=== PATIENT | male | born 1945 | race Caucasian/White ===

== ENCOUNTER 2020-05-06 13:54 | Inpatient (IN) | payer MEDICARE, SELFPAY ==
[2020-05-06] VITALS (9 sets, daily range): BP systolic 103–124; BP diastolic 49–94; PULSE 63–105; RESP 14–29; TEMP 33.7–35.4; O2SAT 92–97; BMI 40.4
--- NOTE | ~2020-05-06 | XR_ITS ---
EXAMINATION: XR CHEST CLINICAL INFORMATION: Status post right IJ placement. COMPARISON: Chest 05/11/2020 TECHNIQUE: Frontal view of the chest was obtained. FINDINGS: The lungs are well-expanded with increased pulmonary vascularity but no congestion seen. Heart size is enlarged. There is patchy opacity left lung base question atelectasis or infiltrate. Is a dense band like atelectasis right midlung Tip of new central line is in proximal to mid SVC. Endotracheal tube is 7.6 cm above the emilie. Tip of enteric tube is below the diaphragm in stomach. There is mild spondylosis dorsal spine. XR/XR chest 1V IMPRESSION: New right jugular central line tip is in proximal to mid SVC. Rest of support lines and catheters are stable. There is prominent pulmonary vascularity Bandlike atelectasis right upper midlung. Left lower lobe infiltrate/atelectasis suspected.
--- NOTE | ~2020-05-06 | XR_ITS ---
EXAMINATION: XR CHEST CLINICAL INFORMATION: ET tube placement COMPARISON: Chest x-ray 05/12/2020 TECHNIQUE: Frontal portable view of the chest was obtained. 9:32 PM FINDINGS: Tubes and lines: 1. Endotracheal tube 5 cm above emilie. 2. Right IJ catheter tip in superior vena cava about 7 cm proximal from the cavoatrial junction. 3. Gastric tube passes below diaphragm into stomach. Catheter tip is below the lower margin of the film. No acute abnormality. No pulmonary vascular congestion. Lungs are normally aerated. There is no pleural effusion or pneumothorax. XR/XR chest 1V IMPRESSION: 1. Endotracheal tube 5 cm above emilie. 2. Right IJ catheter tip in superior vena cava about 7 cm proximal from the cavoatrial junction. 3. Gastric tube passes below diaphragm into stomach. Catheter tip is below the lower margin of the film. 4. Normal aeration of lungs.
--- NOTE | ~2020-05-06 | XR_ITS ---
EXAMINATION: XR CHEST CLINICAL INFORMATION: Shortness of breath COMPARISON: 05/10/2020 TECHNIQUE: Frontal view of the chest was obtained. FINDINGS: Lung volumes are symmetric. Right basilar opacity appears increased from prior. Increasing retrocardiac opacity also suspected with silhouetting of the left hemidiaphragm. No evidence of pneumothorax. Small pleural effusions are suspected. Cardiac size is within normal limits. Calcification is present at the aortic arch. No acute osseous findings are seen. XR/XR chest 1V IMPRESSION: Increasing bibasilar opacities which may reflect atelectasis or consolidation, in association with small pleural effusions.
--- NOTE | ~2020-05-06 | CT_ITS ---
EXAMINATION: CT HEAD WITHOUT CONTRAST CLINICAL INFORMATION: Acute mental status change COMPARISON: None TECHNIQUE: Contiguous axial imaging was performed from the skull base to vertex without intravenous administration of contrast. This CT examination was performed using dose optimization techniques as appropriate, variously including the following: *Automated exposure control *Adjustment of mA and/or kV according to patient size (this includes techniques or standardized protocols for targeted exams where dose is matched to indication/reason for exam; i.e. extremities or head) *Use of iterative reconstruction technique DLP: 788 mGy-cm FINDINGS: There is no evidence of acute intracranial hemorrhage or territorial infarction. No abnormal mass effect or midline shift is seen. Dur[place] to white matter differentiation is well preserved. No extra-axial fluid collections are identified. The ventricles are normal in size. There is no abnormal attenuation within the brain parenchyma. The osseous structures and soft tissues are normal. The mastoid air cells and visualized portions of the paranasal sinuses are well aerated. CT/CT head/brain wo con IMPRESSION: No acute intracranial pathology.
--- NOTE | ~2020-05-06 | MR_ITS ---
EXAMINATION: MR BRAIN WITHOUT AND WITH CONTRAST CLINICAL INFORMATION: Delirium and akinesis COMPARISON: MRI brain 05/21/2020 TECHNIQUE: Multiplanar, multisequence MRI of the brain was obtained before and after the intravenous administration of 5 mL Gadavist. FINDINGS: Normal No focal reduced diffusion is seen to suggest acute or subacute cerebral ischemia. Previously seen nonspecific T2 signal changes in the internal capsule bilaterally including the putamen and splenium of the corpus callosum are less evident. Few nonspecific white matter changes as seen in the mid jaron region. There is no edema, mass effect, acute intra-axial external bleed. Postcontrast there is no abnormal enhancement seen within the cerebral or cerebellar hemisphere. No abnormal enhancement seen upon on the midbrain region. Normal flow at signal seen in the major cerebral vasculature. Mild mucoperiosteal thickening of right maxillary sinus is noted. MR/MR head/brain wo/w con IMPRESSION: Minimal nonspecific T2 signal changes on FLAIR in the mid jaron region but no edema, mass effect or enhancement seen. No acute infarct, bleed or enhancing supratentorial lesion. There is normal flow-void signal indication of intracranial circulation. Results were discussed by phone with on Dr. Lance Conklin in ICU at 11:00 AM
--- NOTE | ~2020-05-06 | FL_ITS ---
EXAMINATION: XR LUMBAR PUNCTURE CLINICAL INFORMATION: Elevated CSF protein, persistent encephalopathy. COMPARISON: None TECHNIQUE: Following explaining procedure, benefits and risks of lumbar tap under fluoroscopy to the patient's family, written consent was obtained. Patient was placed prone on fluoroscopy table and low back area was cleaned and draped in usual sterile manner. 1% lidocaine was injected overlying the L5-S1 disc level. A 20-gauge, 6-inch long needle was inserted intrathecally at the L5-S1 disc level with a left parahilar approach under fluoroscopy. There is very little CSF flow seen; however, 1 to 2 mL of hemorrhagic CSF fluid with minimal hemorrhage was seen. The needle was maneuvered in different position at the same level however, was unsuccessful. The stylet was reintroduced and needle withdrawn. Complete hemostasis achieved at puncture site. Patient tolerated procedure extremely well. FINDINGS: Fluoroscopy-guided lumbar puncture was performed and only 2 mL of CSF fluid could be obtained at the L5-S1 disc level. On the visualized images, tip of needle is in the center of the spinal canal at the L5-S1 disc. Visualized L4, L5 and sacrum is unremarkable. FLUOROSCOPY TIME: 1.5 minutes DOSE AREA PRODUCT: 15.058 uGy-m2 (microgray-meter squared) FL/FL guided lumbar puncture LP IMPRESSION: Partially successful fluoroscopy-guided L5-S1 lumbar puncture performed.
--- NOTE | ~2020-05-06 | XR_ITS ---
EXAMINATION: XR CHEST CLINICAL INFORMATION: Respiratory distress COMPARISON: Chest radiographs 05/06/2020 x2 exams, 03/22/2011 TECHNIQUE: Portable upright AP x 2 views of the chest was obtained. FINDINGS: There are low lung volumes. There is even distribution pulmonary vascularity but no engorgement of the vascular pedicle or Fred B lines. There is likely subsegmental atelectasis right base and adjacent to right minor fissure. There is no lobar or segmental airspace consolidation or suspicious groundglass opacity. No pneumothorax or pneumomediastinum. The cardiac and hilar and mediastinal contours and bony structures are stable. XR/XR chest 1V IMPRESSION: Low lung volumes. Subsegmental atelectasis adjacent to minor fissure and right base.
--- NOTE | ~2020-05-06 | MR_ITS ---
MRI OF THE BRAIN WITHOUT IV CONTRAST INDICATION: Persistent encephalopathy. COMPARISON: Head CT 05/06/2020. TECHNIQUE: Multiplanar multisequence MR imaging of the brain was obtained without IV contrast. FINDINGS: There is no hydrocephalus, extra-axial surface collection, or herniation. There are nonspecific T2 signal changes involving the internal capsules bilaterally, surrounding the putamen bilaterally, involving the splenium of the corpus callosum, and extending into the arceo radiata bilaterally. Consider postcontrast imaging for further assessment in light of the history of encephalopathy. There is lack of FLAIR CSF suppression within multiple cerebral sulci likely corresponding to vessels which could be indicative of slow arterial flow for which a CTA of the head would be helpful in further assessment. There is no acute infarct on diffusion-weighted imaging. There is no intracranial hemorrhage on the gradient recalled echo acquisition. The midline structures are normal. The cerebellar tonsils are normally positioned. The cerebellum and brainstem are normal. The craniocervical junction is normal. Osseous marrow signal intensity is homogenous. The visualized soft tissues are unremarkable. There is soft tissue pannus adjacent to the dens that indents the ventral thecal sac at C1-C2. A partially imaged disc protrusion at C4-C5 results in potential significant mass effect on the cervical spinal cord and severe central canal stenosis that can be further assessed with a cervical spine MRI if there is cervical myelopathy clinically. There is mild mucosal thickening within the maxillary sinuses bilaterally and moderate mucosal thickening within the ethmoid air cells bilaterally. MR/MR head/brain wo con IMPRESSION: - There are nonspecific T2 signal changes involving the internal capsules bilaterally, surrounding the putamen bilaterally, involving the splenium of the corpus callosum, and extending into the arceo radiata bilaterally. Consider postcontrast imaging for further assessment in light of the history of encephalopathy. Differential considerations include toxic/metabolic, infectious, inflammatory, and a variety of alternative etiologies. - There is lack of FLAIR CSF suppression within multiple cerebral sulci likely corresponding to vessels which could be indicative of slow arterial flow for which a CTA of the head would be helpful in further assessment. - A partially imaged disc protrusion at C4-C5 results in potential significant mass effect on the cervical spinal cord and severe central canal stenosis that can be further assessed with a cervical spine MRI if there is cervical myelopathy clinically.
--- NOTE | ~2020-05-06 | XR_ITS ---
EXAMINATION: XR CHEST CLINICAL INFORMATION: Possible sepsis. COMPARISON: Chest radiographs dated 03/22/2011. TECHNIQUE: Frontal view of the chest was obtained. FINDINGS: Mild linear markings are seen at the right lung base. The left lung is clear. The heart and mediastinal structures are unremarkable. XR/XR chest 1V IMPRESSION: Mild linear markings at the right lung base have the appearance of atelectasis or scarring. No acute cardiopulmonary process.
--- NOTE | ~2020-05-06 | XR_ITS ---
EXAMINATION: XR CHEST CLINICAL INFORMATION: SON COMPARISON: 05/06/2020, earlier today at 2:30 PM and chest radiograph 03/22/2011 TECHNIQUE: Frontal view of the chest was obtained. FINDINGS: Heart size is normal. Some ill-defined patchy density is seen in the right lung as well as the left lung base. This appears slightly increased when compared to the prior study earlier today. Some of the changes at the lung bases are chronic as some mild reticular nodular changes were present on the 2012 study at the lung bases. Degenerative changes again seen in the shoulders. XR/XR chest 1V IMPRESSION: Some new ill-defined patchy densities in both lungs.
--- NOTE | ~2020-05-06 | XR_ITS ---
EXAMINATION: XR CHEST CLINICAL INFORMATION: Status post reintubation COMPARISON: 05/11/2020 TECHNIQUE: Frontal view of the chest was obtained. XR/XR chest 1V FINDINGS / IMPRESSION: Endotracheal tube terminates 5.3 cm above the emilie. Right internal jugular central venous catheter terminates within the mid SVC. Enteric tube courses below the diaphragm. Cardiomegaly. Pulmonary venous congestion. Bilateral patchy lower lung airspace opacities, more pronounced at left lung base.
--- NOTE | ~2020-05-06 | XR_ITS ---
EXAMINATION: XR CHEST CLINICAL INFORMATION: Intubated, low lung volumes. COMPARISON: None TECHNIQUE: Frontal view of the chest was obtained. FINDINGS: The lungs are well-expanded with prominent interstitial markings and left basilar opacification likely infiltrate or atelectasis. Heart size and the great vessels are of normal caliber. New tip of endotracheal tube is 5 cm above the emilie. New enteric tube tip is below diaphragm in the stomach. No gross bony abnormality is seen. XR/XR chest 1V IMPRESSION: Left basilar infiltrate/atelectasis. New enteric tube and new endotracheal tube are in satisfactory position.
--- NOTE | ~2020-05-06 | NM_ITS ---
EXAMINATION: NUCLEAR MEDICINE BRAIN FLOW CLINICAL INFORMATION: Evaluate for brain perfusion and exclude brain . COMPARISON: None TECHNIQUE: Following intravenous administration of 25 mCi of 99m Tc Neurolite, image 8 perfusion and 20 minute delayed images were obtained. Isotope was injected through the right central line. FINDINGS: There is normal flow seen in both carotid and vertebral arteries including intracranial flow noted. On delayed images there is diffuse activity seen throughout the cerebrum and cerebellum consistent with normal perfusion. There is an absent heart and no significant sign. NM/NM brain 4V w flow IMPRESSION: Normal perfusion and isotope activity seen on delayed scan within the entire cerebrum and cerebellum consistent with viable brain parenchyma Results were discussed with ICU Dr. Lucas by phone at 4:00 PM.
--- NOTE | ~2020-05-06 | MR_ITS ---
EXAMINATION: MR BRAIN WITH CONTRAST MR CERVICAL SPINE WITHOUT CONTRAST CLINICAL INFORMATION: Evaluate for stroke. Evaluate for cervical myelopathy. COMPARISON: Brain MRI without contrast 05/13/2020. TECHNIQUE: Multiplanar MR imaging of the cervical spinal was performed without contrast. Axial and coronal postcontrast T1 images of the brain were also obtained. A total of 10 mL Gadavist was utilized for this examination. FINDINGS: Brain: Dedicated postcontrast images of the brain reveal no abnormal mass or enhancement within the intracranial compartment. No intracranial mass effect or midline shift. Again there is moderate paranasal sinus disease primarily affecting the ethmoid air cells. Cervical spine: There is slight retrolisthesis of C5 on C6. Alignment is otherwise normal. Vertebral heights are preserved. There are mixed predominantly type II degenerative endplate changes at C4-C5 and C5-C6. There is loss of intervertebral disc height and T2 signal intensity at these 2 levels related to disc degeneration. There is disc desiccation at multiple additional levels without substantial loss of intervertebral disc height. The cervicomedullary junction is normal. The occipital condyles and lateral C1 masses are intact. 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 C1-C2 articular facets are unremarkable. At C2-C3 the annular contour is normal. No canal stenosis. No neuroforaminal encroachment. At C3-C4 there is a broad central protrusion superimposed upon a bulging disc. Mild canal stenosis. Uncovertebral joint spurring and facet degenerative change causes moderate left and mild right neuroforaminal encroachment. At C4-C5 there is a central protrusion superimposed upon a bulging disc causing severe canal stenosis an compression of the cervical spinal cord. There is a short segment of chronic myelomalacia involving the cervical cord at this level. Severe bilateral neuroforaminal encroachment. At C5-C6 there is a broad right central protrusion superimposed upon a bulging disc causing severe canal stenosis and compression of the cervical spinal cord. There is a short segment of chronic myelomalacia involving the cervical cord at this level. Severe bilateral neuroforaminal encroachment. At C6-C7 there is a small left central protrusion superimposed upon a bulging disc. Mild canal stenosis. Uncovertebral joint spurring and facet degenerative change causes mild bilateral neuroforaminal encroachment. At C7-T1 the annular contour is normal. Bilateral facet degenerative change. No canal stenosis. No neuroforaminal narrowing. Visualized soft tissues tissues of the neck are normal. MR/MR cervical spine wo con IMPRESSION: Brain: No abnormal intracranial mass or enhancement. Cervical spine: There is advanced multilevel degenerative spondylosis of the cervical spine. There is a severe canal stenosis with compression of the cervical spinal cord at C4-C5 and C5-C6 with short segments of chronic myelomalacia involving the cord at each of these 2 levels. There is also mild canal stenosis at C3-C4 and C6-C7. There is relatively advanced degenerative arthrosis of the atlantodental joint with thickening of the retrodental soft tissues causing AP narrowing of the canal at the level of C1. There is severe bilateral neuroforaminal encroachment at C4-C5 and C5-C6 related to uncovertebral joint spurring and facet degenerative change as described above. This critical result was discussed with Sammy Lopez at 2:37 PM on 05/15/2020 and it was ascertained that the content and urgency of the report was understood at the time of direct communication.
--- NOTE | 2020-05-06 14:12 | ECG_ITS ---
Test Reason : AMS Blood Pressure : / mmHG Vent. Rate : 135 BPM Atrial Rate : 144 BPM P-R Int : 000 ms QRS Dur : 074 ms QT Int : 220 ms P-R-T Axes : 000 060 083 degrees QTc Int : 330 ms Artifact in tracing Undetermined rhythm EKG not interpretable When compared with ECG of 11-MAR-2011 09:04, due to poor quality, cannot compare Referred By: Jennifer Patel Electronically Signed By:JAMES BORDEN
[2020-05-06] MEDS: 0.9 % Sodium Chloride 1,000 ML 999 ML IVCONT ×2 (14:28)
[2020-05-06] MEDS: Piperacillin Sodium/Tazobactam 3.375 GM in 0.9 % Sodium Chloride 50 ML IV ×2 (14:31→20:03)
[2020-05-06 14:33] LABS: Basophils Percent Auto 0.3 % (0-2); Eosinophils Absolute Auto 0.1 X10*3/uL (0.0-0.4); Hematocrit 37.6 % (42-52); Hemoglobin 11.6 g/dl (14.0-18.0); Imm Gran Abs Auto 0.03 X10*3/uL (0.00-0.03); Imm Gran Pct Auto 0.5 % (0.0-0.4); Lymphocytes Absolute Auto 0.3 X10*3/uL (1.2-4.9); Lymphocytes Percent Auto 4.1 % (20-40); MANUAL DIFF FLAG SCAN; Mean Corpuscular HGB Conc 30.9 g/dl (31.0-36.0); Mean Corpuscular Hemoglobin 28.8 pg (27.0-33.0); Mean Corpuscular Volume 93.3 fL (80-98); Mean Platelet Volume 12.9 fL (9.4-12.4); Monocytes Absolute Auto 0.5 X10*3/uL (0.1-1.2); Monocytes Percent Auto 7.3 % (2-11); NRBC Pct Auto 0.5 /100WBC (0.0-0.2); Neutrophils Absolute Auto 5.7 X10*3/uL (2.0-8.3); Neutrophils Percent Auto 85.8 % (45-73); Platelet Count 103 X10*3/uL (160-400); Red Blood Count 4.03 X10*6/uL (4.60-5.80); Red Cell Distribution Width 16.6 % (11.0-16.0); SCAN SMEAR FLAG 1; White Blood Count 6.6 X10*3/uL (4.8-10.8)
[2020-05-06 14:40] LABS: INTERNATIONAL NORM RATIO 1.1 (0.9-1.1); Prothrombin Time 12.9 SEC (10.8-13.0)
--- NOTE | 2020-05-06 14:43 | ED_ITS ---
HPI - General Adult General Chief complaint: Altered Mental Status Stated complaint: AMS,?SEPSIS,LATA CELLULITIS Time Seen by Provider: 05/06/20 13:55 Source: patient and EMS Mode of arrival: EMS Limitations: no limitations History of Present Illness HPI narrative: Patient is brought to the emergency room by EMS. According to EMS and the patient, he was sent to the emergency room by patient's 's request. Patient states that his believes that for the last 5-10 days, he has been slower to answer. Patient has no complaints. Related Data Allergies Allergy/AdvReac Type Severity Reaction Status Date / Time No Known Allergies Allergy Unknown NONE Unverified 11/17/19 14:44 Review of Systems Review of Systems: Constitutional : No Weight loss, No Fever, No Chills, No Night Sweats, No Fatigue, No Malaise ENT/Mouth : No Hearing loss, No Ear Pain, No Nasal Congestion, No Sinus Pain, No Hoarseness, No sore throat, No Rhinorrhea, No Swallowing Difficulty Eyes: No Eye Pain, No Swelling, No Redness, No Foreign Body, No Discharge, No Vision Changes Cardiovascular : No Chest Pain, No SOB, No Dyspnea on Exertion, No Orthopnea, No Edema, No Palpitations Respiratory : No Cough, No Sputum, No Wheezing, No Smoke Exposure, chronic dyspnea per patient at baseline Gastrointestinal : No Nausea, No Vomiting, No Diarrhea, No Constipation, No abdominal Pain, No Hematochezia, No Melena Genitourinary : no irregular bleeding, No Dysuria, No Urinary Frequency, No He maturia, No Urinary Incontinence, No Urgency, No Flank Pain, No Urinary Flow Changes, No Hesitancy Musculoskeletal : No joint pain, No Myalgias, No Joint Swelling Skin : Chronic lower extremity edema and venous insufficiency Neuro : No Weakness, No Numbness, No Paresthesias, No Loss of Consciousness, No Dizziness, No Headache Psych : No Anxiety/Panic, No Depression, No SI/HI/AH/VH, No Social Issues, Heme/Lymph: No Bruising, No Bleeding,No Lymphadenopathy Endocrine : No Polyuria, No Polydipsia, No Temperature Intolerance PMF Past Medical History Medical History CHF (congestive heart failure) Diabetes HTN (hypertension) Hypothyroidism Social History Social History Alcohol intake: unknown Smoking Status: Unknown if ever smoked Use of substances other than those prescribed or required for medical reasons: Unknown Advance Directives: No Advance Directives Information Provided: No Physical Exam Vital Signs: Vital Signs: Last Vital Signs Temp 92.6 F L 05/06/20 14:00 Pulse 63 05/06/20 14:48 Resp 17 05/06/20 14:48 BP 105/49 L 05/06/20 15:10 Pulse Ox 92 05/06/20 14:48 Body Mass Index 40.4 Appearance: Alert. Oriented X3. No acute distress. Slow to answer, but answers appropriately Eyes: Pupils equal, round and reactive to light. ENT: Pharynx normal. Neck: Normal inspection. Neck supple. No lymph nodes noted. No crepitus CVS: Normal heart rate and rhythm. Pulses normal. Normal S1 and S2 Respiratory: No respiratory distress. Bilateral crackles, no wheezing Abdomen: Soft and nontender. No rigidity. Diffuse distension Skin: Skin is cool to touch diffusely. Lower extremities bilaterally have chronic venous stasis, both legs are erythematous, there is an eschar above the right tibia Extremities: Chronic bilateral lower extremity edema, see above Neuro: Oriented X 3. No motor deficit. No sensory deficit. Moving all exte rmities. Course Course Course Narrative: Patient's initial temperature is 92.6 degrees. It is susp ected that patient may have sepsis, possible source are his lower extremities/cellulitis. At this time although labs and chest x-rays are pending. Patient feels well, remains in the [facility]. I discussed the patient with our hospitalist, patient is being admitted Patient's oxygen saturation dropped to 87% on room air, patient remains breathing comfortably, patient was placed on 2 L Medical Decision Making Lab Data Result diagrams: 05/06/20 14:24 05/06/20 14:24 Labs: Lab Results 05/06/20 05/06/20 05/06/20 Range/Units 14:24 14:24 14:24 WBC 6.6 (4.8-10.8) X10*3/uL RBC 4.03 L (4.60-5.80) X10*6/uL Hgb 11.6 L (14.0-18.0) g/dl Hct 37.6 L (42-52) % MCV 93.3 (80-98) fL MCH 28.8 (27.0-33.0) pg MCHC 30.9 L (31.0-36.0) g/dl RDW 16.6 H (11.0-16.0) % Plt Count 103 L (160-400) X10*3/uL MPV 12.9 H (9.4-12.4) fL Immature Gran % (Auto) 0.5 H (0.0-0.4) % Neut % (Auto) 85.8 H (45-73) % Lymph % (Auto) 4.1 L (20-40) % [place] % (Auto) 7.3 (2-11) % Eos % (Auto) 2.0 (0-4) % Baso % (Auto) 0.3 (0-2) % Lymph # (Auto) 0.3 L (1.2-4.9) X10*3/uL [place] # (Auto) 0.5 (0.1-1.2) X10*3/uL Eos # (Auto) 0.1 (0.0-0.4) X10*3/uL Baso # (Auto) 0.0 (0.0-0.2) X10*3/uL Abs Immat Gran (auto) 0.03 (0.00-0.03) X10*3/uL Absolute Neuts (auto) 5.7 (2.0-8.3) X10*3/uL Absolute Nucleated RBC 0.030 H (0.0-0.012) X10*3/uL Nucleated RBC % (auto) 0.5 H (0.0-0.2) /100WBC Smear Tech's Comments VERIFIED PT 12.9 (10.8-13.0) SEC INR 1.1 (0.9-1.1) Sodium 149 H (135-145) mmol/L Potassium 4.3 (3.3-5.1) mmol/L Chloride 112 H (96-108) mmol/L Carbon Dioxide 25 (22-29) mmol/L Anion Gap 16 (12-20) BUN 50 H (9-16) mg/dL Creatinine 2.20 H (0.5-1.4) mg/dL Estim Creat Clear Calc 33.2 Estimated GFR 29 Random Glucose 98 (60-115) mg/dL Lactic Acid (0.5-2.0) mmol/L Calcium 8.5 (8.4-10.2) mg/dL Total Bilirubin 0.3 (0.0-1.0) mg/dL Direct Bilirubin < 0.2 (0.0-0.5) mg/dL AST 39 H (5-37) U/L ALT 50 H (0-40) U/L Alkaline Phosphatase 90 (39-117) U/L B-Natriuretic Peptide (<100) pg/mL Total Protein 6.9 (6.5-8.0) g/dL Albumin 3.5 (3.5-5.0) g/dL TSH (0.32-4.0) uIU/mL 05/06/20 05/06/20 05/06/20 Range/Units 14:24 14:24 14:24 WBC (4.8-10.8) X10*3/uL RBC (4.60-5.80) X10*6/uL Hgb (14.0-18.0) g/dl Hct (42-52) % MCV (80-98) fL MCH (27.0-33.0) pg MCHC (31.0-36.0) g/dl RDW (11.0-16.0) % Plt Count (160-400) X10*3/uL MPV (9.4-12.4) fL Immature Gran % (Auto) (0.0-0.4) % Neut % (Auto) (45-73) % Lymph % (Auto) (20-40) % [place] % (Auto) (2-11) % Eos % (Auto) (0-4) % Baso % (Auto) (0-2) % Lymph # (Auto) (1.2-4.9) X10*3/uL [place] # (Auto) (0.1-1.2) X10*3/uL Eos # (Auto) (0.0-0.4) X10*3/uL Baso # (Auto) (0.0-0.2) X10*3/uL Abs Immat Gran (auto) (0.00-0.03) X10*3/uL Absolute Neuts (auto) (2.0-8.3) X10*3/uL Absolute Nucleated RBC (0.0-0.012) X10*3/uL Nucleated RBC % (auto) (0.0-0.2) /100WBC Smear Tech's Comments PT (10.8-13.0) SEC INR (0.9-1.1) Sodium (135-145) mmol/L Potassium (3.3-5.1) mmol/L Chloride (96-108) mmol/L Carbon Dioxide (22-29) mmol/L Anion Gap (12-20) BUN (9-16) mg/dL Creatinine (0.5-1.4) mg/dL Estim Creat Clear Calc Estimated GFR Random Glucose (60-115) mg/dL Lactic Acid 0.5 (0.5-2.0) mmol/L Calcium (8.4-10.2) mg/dL Total Bilirubin (0.0-1.0) mg/dL Direct Bilirubin (0.0-0.5) mg/dL AST (5-37) U/L ALT (0-40) U/L Alkaline Phosphatase (39-117) U/L B-Natriuretic Peptide 50 (<100) pg/mL Total Protein (6.5-8.0) g/dL Albumin (3.5-5.0) g/dL TSH 4.75 H (0.32-4.0) uIU/mL Imaging Data Chest x-ray: Radiologist's impression: FINDINGS: Mild linear markings are seen at the right lung base. The left lung is clear. The heart and mediastinal structures are unremarkable. XR/XR chest 1V IMPRESSION: Mild linear markings at the right lung base have the appearance of atelectasis or scarring. No acute cardiopulmonary process. ECG Data Attestation: I personally reviewed and interpreted this ECG as follows: Discharge Plan Discharge Clinical Impression: Cellulitis Qualifiers: Site of cellulitis: extremity Site of cellulitis of extremity: lower extremity Laterality: unspecified laterality Qualified Code(s): L03.119 - Cellulitis of unspecified part of limb Patient Disposition: Admitted As Inpatient
[2020-05-06 14:49] LABS: Lactic Acid 0.5 mmol/L (0.5-2.0)
[2020-05-06 14:54] LABS: SLIDE REVIEW VERIFIED
[2020-05-06 14:59] LABS: B Type Natriuretic Peptide 50 pg/mL (<100)
[2020-05-06 15:04] LABS: Alanine Aminotransferase 50 U/L (0-40); Albumin Level 3.5 g/dL (3.5-5.0); Alkaline Phosphatase 90 U/L (39-117); Anion Gap 16 (12-20); Aspartate Amino Transferase 39 U/L (5-37); Bilirubin Direct < 0.2 mg/dL (0.0-0.5); Bilirubin Total 0.3 mg/dL (0.0-1.0); Blood Urea Nitrogen 50 mg/dL (9-16); Calcium 8.5 mg/dL (8.4-10.2); Carbon Dioxide 25 mmol/L (22-29); Chloride 112 mmol/L (96-108); Creatinine Clr Calc Pharmacy 33.2; Estimated Glomerular Filt Rate 29; Glucose Random 98 mg/dL (60-115); Potassium 4.3 mmol/L (3.3-5.1); Sodium 149 mmol/L (135-145); Total Protein 6.9 g/dL (6.5-8.0)
[2020-05-06 15:14] LABS: TSH reflex Free T4 4.75 uIU/mL (0.32-4.0)
--- NOTE | 2020-05-06 15:36 | PC.NURSE ---
pt placed on nc 2l for o2 sat of 88% on room air
[2020-05-06 15:50] LABS: Free T4 (Free Thyroxine) 1.19 ng/dL (0.71-1.85)
--- NOTE | 2020-05-06 16:00 | PC.NURSE ---
plan for temp eliud galvez
[2020-05-06 16:24] LABS: Estimated Average Glucose 137 mg/dL; Hemoglobin A1c % 6.4 %
[2020-05-06 16:31] LABS: Glucose Urine UA NEG (NEG); Leukocyte Esterase Urine NEG (NEG); Nitrite Urine NEG (NEG); Urine Blood NEG (NEG); Urine Ketones NEG (NEG); Urine Protein NEG (NEG-TRACE)
[2020-05-06 16:34] LABS: Appearance Urine CLEAR; Color Urine YELLOW
--- NOTE | 2020-05-06 16:34 | P.ACPN_ITS ---
Advanced Care Planning Note Advanced Care Planning Note Discussed with: family member(s) Time spent (in minutes): 20 Narrative: 74-year-old man presenting to the ER with altered mental status and hypothermia. Discussion was had with patient's Cary Lozano ). She is concerned with his mental state as prior to a week ago patient had been doing his own care including bathing himself. She reports that their private people and they do not 10 to do much reach other in that way so when she did help him this Thursday and saw his legs she noticed that they were very red with skin peeling and she was very surprised. She reports that he does have a history of cellulitis in the past and has been seen by a Wound Clinic previously over the years. She reported that he over the last week has seemed to be declining, having more difficulties with walking and was even unable to climb the stairs in their home and at this point he is now sleeping in a chair in their downstairs living area. She reported that he had become delirious and was even seeing things including people and animals. She is concerned about his home safety and would like to have him go to short-term rehab. She also reported that she had thought that they signed DNR papers but she wanted him to be a full code I explained to her what DNR meant versus Full code and she stated understanding and wanted everything to be done for him if thing that happened to him. She will be followed up with by the primary provider and case management.
[2020-05-06 16:36] LABS: COVID-19 Test Negative (Negative); IDNOW Serial# 9DD0AD1C
--- NOTE | 2020-05-06 17:01 | P.HPHOSP_ITS ---
History of Present Illness Date of Service: 05/06/20 Chief Complaint: Confusion, leg redness 74 year old man with history of CHF, Hypothyroidism presents with confusion. According apparently he has been doing his own wound care to both of his legs which he has been over the last several years. However he has been having trouble even walking, walking up stairs and he has been quite weak. To bathe him and do wound care on his legs and she noted them to be very red and raw. She reports prior to week ago he had unable to do most of his own self-care without much difficulty. He has had cellulitis in the past and has been seen by wound care clinic. His legs were red bilaterally with multiple dry skin areas. Groin area very excoriated. The patient is alert however confused therefore unable to get much information from him his reported that he has not had a poor appetite, nausea, vomiting, diarrhea. Her chest x-ray was negative for consolidation or effusion. He was noted to be hypothermic initially. Zhang hugger placed. He was placed on 2 liters of oxygen after o2 sat went down to 89% but came right back up. He will be admitted for further management and treatment of cellulitis and hypothermia. Review of Systems Review of Systems: Denies any recent fever chills or decrease in appetite respiratory denies any shortness of breath coverage production cardiovascular is adjustment of any PND or edema gastrointestinal denies any dysphagia abdominal pain nausea vomiting or diarrhea genitourinary denies any dysuria frequency or hematuria musculoskeletal denies any joint pain or swelling neuropsych denies any weakness or seizures all other systems reviewed are negative [facility] Medical History CHF (congestive heart failure) Diabetes HTN (hypertension) Hypothyroidism Social History Alcohol intake: unknown Smoking Status: Unknown if ever smoked Use of substances other than those prescribed or required for medical reasons: Unknown Advance Directives: No Advance Directives Information Provided: No Meds Allergies Allergy/AdvReac Type Severity Reaction Status Date / Time No Known Allergies Allergy Unknown NONE Unverified 11/17/19 14:44 Active Medications: Current Medications Generic Name Dose Route Start Last Admin Trade Name Freq PRN Reason Stop Dose Admin Acetaminophen 650 mg 05/06/20 16:58 Acetaminophen 325 Mg Tablet PO Q6H PRN Pain, Mild (Pain Scale 1-3) Levothyroxine Sodium 125 mcg 05/07/20 09:00 Levothyroxine Sodium 125 Mcg Tablet PO DAILY [facility] Metoprolol Tartrate 25 mg 05/07/20 09:00 Metoprolol Tartrate 25 Mg Tablet PO DAILY [facility] Protocol Ondansetron HCl 4 mg 05/06/20 16:58 Ondansetron Hcl 4 Mg/2 Ml Vial IVPUSH Q8H PRN Nausea and Vomiting Pharmacy Consult 1 each 05/06/20 14:12 Consult Rx Vancomycin Dosing MISCELLANE DAILY PRN Consult order Sodium Chloride 3 ml 05/07/20 00:00 0.9 % Sodium Chloride Flush 3 Ml Syringe IVFLUSH QSHIFT [facility] Tamsulosin HCl 0.4 mg 05/07/20 09:00 Tamsulosin Hcl 0.4 Mg Capsule PO DAILY [facility] Home Medications Medication Instructions Recorded Confirmed Last Taken Type furosemide 1 tab PO TID 05/06/20 05/06/20 Unknown History levothyroxine 1 tab PO DAILY 05/06/20 05/06/20 Unknown History metoprolol tartrate 1 tab PO DAILY 05/06/20 05/06/20 Unknown History spironolactone 1 tab PO BID 05/06/20 05/06/20 Unknown History tamsulosin 1 cap PO DAILY 05/06/20 05/06/20 Unknown History Physical Exam Vital Signs and Narrative: Vital Signs: Last Vital Signs Temp 93.3 F L 05/06/20 16:00 Pulse 63 05/06/20 14:48 Resp 17 05/06/20 14:48 BP 116/94 H 05/06/20 16:00 Pulse Ox 92 05/06/20 14:48 Body Mass Index 40.4 Appearing in no acute distress head is normocephalic atraumatic eyes pupils are PERRLA sclera is anicteric mouth throat mucous membranes are intact and moist neck is supple no lymphadenopathy, no JVD noted lung sounds are clear to auscultation heart regular rate rhythm, clear S1, S2 positive bowel sounds, abdomen is soft, nontender neuro patient is alert x3, no focal deficits Skin Groin area excoriated, bilateral Results Labs CBC and Chem 7: 05/06/20 14:24 05/06/20 16:47 Labs: Laboratory Results - last 24 hr 05/06/20 05/06/20 05/06/20 14:24 14:24 14:24 MCV 93.3 MCH 28.8 MCHC 30.9 L RDW 16.6 H Plt Count 103 L MPV 12.9 H Immature Gran % (Auto) 0.5 H Neut % (Auto) 85.8 H Lymph % (Auto) 4.1 L [place] % (Auto) 7.3 Eos % (Auto) 2.0 Baso % (Auto) 0.3 Lymph # (Auto) 0.3 L [place] # (Auto) 0.5 Eos # (Auto) 0.1 Baso # (Auto) 0.0 Abs Immat Gran (auto) 0.03 Absolute Neuts (auto) 5.7 Absolute Nucleated RBC 0.030 H Nucleated RBC % (auto) 0.5 H Smear Tech's Comments VERIFIED PT 12.9 INR 1.1 Anion Gap 16 Estim Creat Clear Calc 33.2 Estimated GFR 29 Random Glucose 98 Estimat Average Glucose Hemoglobin A1c % Lactic Acid Calcium 8.5 Total Bilirubin 0.3 Direct Bilirubin < 0.2 AST 39 H ALT 50 H Alkaline Phosphatase 90 B-Natriuretic Peptide Total Protein 6.9 Albumin 3.5 TSH Free T4 Urine Color Urine Appearance Urine pH Ur Specific [place] Urine Protein Urine Glucose (UA) Urine Ketones Urine Blood Urine Nitrite Ur Leukocyte Esterase COVID-19 (ANGELA) COVID-Enpocket 05/06/20 05/06/20 05/06/20 14:24 14:24 14:24 MCV MCH MCHC RDW Plt Count MPV Immature Gran % (Auto) Neut % (Auto) Lymph % (Auto) [place] % (Auto) Eos % (Auto) Baso % (Auto) Lymph # (Auto) [place] # (Auto) Eos # (Auto) Baso # (Auto) Abs Immat Gran (auto) Absolute Neuts (auto) Absolute Nucleated RBC Nucleated RBC % (auto) Smear Tech's Comments PT INR Anion Gap Estim Creat Clear Calc Estimated GFR Random Glucose Estimat Average Glucose Hemoglobin A1c % Lactic Acid 0.5 Calcium Total Bilirubin Direct Bilirubin AST ALT Alkaline Phosphatase B-Natriuretic Peptide 50 Total Protein Albumin TSH 4.75 H Free T4 1.19 Urine Color Urine Appearance Urine pH Ur Specific [place] Urine Protein Urine Glucose (UA) Urine Ketones Urine Blood Urine Nitrite Ur Leukocyte Esterase COVID-19 (ANGELA) COVID-Enpocket 05/06/20 05/06/20 05/06/20 14:24 15:43 16:11 MCV MCH MCHC RDW Plt Count MPV Immature Gran % (Auto) Neut % (Auto) Lymph % (Auto) [place] % (Auto) Eos % (Auto) Baso % (Auto) Lymph # (Auto) [place] # (Auto) Eos # (Auto) Baso # (Auto) Abs Immat Gran (auto) Absolute Neuts (auto) Absolute Nucleated RBC Nucleated RBC % (auto) Smear Tech's Comments PT INR Anion Gap Estim Creat Clear Calc Estimated GFR Random Glucose Estimat Average Glucose 137 Hemoglobin A1c % 6.4 Lactic Acid Calcium Total Bilirubin Direct Bilirubin AST ALT Alkaline Phosphatase B-Natriuretic Peptide Total Protein Albumin TSH Free T4 Urine Color YELLOW Urine Appearance CLEAR Urine pH 5.0 Ur Specific [place] 1.020 Urine Protein NEG Urine Glucose (UA) NEG Urine Ketones NEG Urine Blood NEG Urine Nitrite NEG Ur Leukocyte Esterase NEG COVID-19 (ANGELA) Negative COVID-19 Clin Com See Note Imaging Radiologist's Impressions: Impressions Chest X-Ray 05/06/20 14:12 IMPRESSION: Mild linear markings at the right lung base have the appearance of atelectasis or scarring. No acute cardiopulmonary process. Assessment and Plan (1) Cellulitis: Qualifiers: Laterality: unspecified laterality Site of cellulitis: extremity Site of cellulitis of extremity: lower extremity Qualified Code(s): L03.119 - Cellulitis of unspecified part of limb Status: Acute 74 year old man with history of CHF and hypothyroidism admitted with acute encephalopathy related to dehydration and cellulitis. He has been weak over the last 7 days and his noticed that his legs were red and peeling. Acute encephalopathy. Some confusion noted. According to his he has had increased confusion over the last week and has not been taking care of his leg wounds. Cellulitis. Bilateral, Will continue Zosyn and add Doxycycline. ID to follow. Hypothermia. Initial temp 92.6. Likely from Infection, No recent fall or long periods of time outside or without heat. Zhang hugger on in the ED. Once temp up to 95.0 may transfer to [facility]. CHF. No exacerbation. Hold Lasix and spironolactone for now due to hypernatremia. COPD. Albuterol as needed. Hypothyroidism. TSH 4.75, Free T4 1.19. Subclinical. Continue Levothyroxine. DVT prophylaxis with Heparin Discussed with Dr. Alberto Full code
[2020-05-06 17:20] LABS: Anion Gap 13 (12-20); Blood Urea Nitrogen 50 mg/dL (9-16); Calcium 7.8 mg/dL (8.4-10.2); Carbon Dioxide 24 mmol/L (22-29); Chloride 116 mmol/L (96-108); Creatinine Clr Calc Pharmacy 36.7; Estimated Glomerular Filt Rate 33; Glucose Random 96 mg/dL (60-115); Sodium 149 mmol/L (135-145)
--- NOTE | 2020-05-06 17:49 | PC.NURSE ---
report given to [facility]
[2020-05-06] MEDS: Heparin Sodium,Porcine 5,000 UNIT/ML VIAL 5000 UNIT SUBCUT (18:33)
[2020-05-06] MEDS: Dextrose 5 % 1,000 ML 75 ML IVCONT (18:33)
[2020-05-06] MEDS: 0.9 % Sodium Chloride Flush 3 ML SYRINGE IVFLUSH (20:03)
[2020-05-07] VITALS (7 sets, daily range): BP systolic 118–147; BP diastolic 55–67; PULSE 94–115; RESP 18–25; TEMP 36.2–37.1; O2SAT 93–95; BMI 40.4
--- NOTE | 2020-05-07 | ECG_ITS ---
Test Reason : Tachy Blood Pressure : / mmHG Vent. Rate : 112 BPM Atrial Rate : 112 BPM P-R Int : 184 ms QRS Dur : 094 ms QT Int : 346 ms P-R-T Axes : 000 -67 073 degrees QTc Int : 472 ms Sinus tachycardia Low voltage Left axis deviation Cannot rule out anteroseptal infarct Abnormal ECG When compared with ECG of 06-MAY-2020 14:31, Serial comparison not possible because previous ECG has significant artifact. Referred By: Alphonso Brito Electronically Signed By:Ronaldo Coleman
[2020-05-07] MEDS: Piperacillin Sodium/Tazobactam 3.375 GM in 0.9 % Sodium Chloride 50 ML IV ×3 (03:26→15:18)
--- NOTE | 2020-05-07 03:52 | PM.EVENT ---
Event Note Date of Service: 05/07/20 Event Note: Tachycardia: Patient has been persistently tachycardic. Repeat EKG shows sinus tachy. ddimer - age adjusted negative. Pneumonia: Patient is hypoxic, requiring supplemental oxygen repeat chest x-ray showed new lung infiltrates consistent with pneumonia. Patient is started with doxy and Zosyn by the admitting team; id consult in place. Hypernatremia: c/w D5w; Nephrology consult.
[2020-05-07 04:16] LABS: Basophils Percent Auto 0.1 % (0-2); Eosinophils Absolute Auto 0.1 X10*3/uL (0.0-0.4); Eosinophils Percent Auto 1.3 % (0-4); Hematocrit 35.1 % (42-52); Hemoglobin 10.9 g/dl (14.0-18.0); Imm Gran Abs Auto 0.03 X10*3/uL (0.00-0.03); Imm Gran Pct Auto 0.4 % (0.0-0.4); Lymphocytes Absolute Auto 0.2 X10*3/uL (1.2-4.9); Lymphocytes Percent Auto 2.3 % (20-40); MANUAL DIFF FLAG SCAN; Mean Corpuscular HGB Conc 31.1 g/dl (31.0-36.0); Mean Corpuscular Hemoglobin 28.7 pg (27.0-33.0); Mean Corpuscular Volume 92.4 fL (80-98); Mean Platelet Volume 12.4 fL (9.4-12.4); Monocytes Absolute Auto 0.6 X10*3/uL (0.1-1.2); Monocytes Percent Auto 7.7 % (2-11); NRBC Pct Auto 0.4 /100WBC (0.0-0.2); Neutrophils Percent Auto 88.2 % (45-73); Red Cell Distribution Width 16.5 % (11.0-16.0); SCAN SMEAR FLAG 1; White Blood Count 7.9 X10*3/uL (4.8-10.8)
[2020-05-07 04:19] LABS: Platelet Count 99 X10*3/uL (160-400)
[2020-05-07 04:25] LABS: D Dimer 382 NG/ML
[2020-05-07 04:36] LABS: SLIDE REVIEW VERIFIED
[2020-05-07 04:46] LABS: Anion Gap 15 (12-20); Blood Urea Nitrogen 49 mg/dL (9-16); Calcium 8.3 mg/dL (8.4-10.2); Carbon Dioxide 24 mmol/L (22-29); Chloride 116 mmol/L (96-108); Estimated Glomerular Filt Rate 32; Glucose Random 103 mg/dL (60-115); Potassium 4.1 mmol/L (3.3-5.1); Sodium 151 mmol/L (135-145)
[2020-05-07] MEDS: Heparin Sodium,Porcine 5,000 UNIT/ML VIAL 5000 UNIT SUBCUT ×2 (06:17→19:38)
--- NOTE | 2020-05-07 06:25 | PC.NURSE ---
At beginning of shift pt rectal temp 95.5. Pt placed on carmen hugger. Pt noted to have crackles throughout so IVF stopped and MD made aware. MD order for CXR showing new ill defined patchy densities in both lungs. MD made aware and ordered to stop IVF. Pt also noted to be tachy so EKG obtained verifying tachycardia with HR 110-115. All other VSS. Temperature resolved. Rectal 97.2 and 98.0 oral. Carmen hugger removed. Pt satting 93% and able to be weaned from 4L to 2L via nasal cannula. Pt has audible wet cough and unable to answer most questions. Unable to give PO meds d/t lethargy and ? swallowing. MD and Network Controller aware of pt condition. D-Dimer and BMP ordered and pending. Will continue to monitor and pass to oncoming RN.
[2020-05-07] MEDS: 0.9 % Sodium Chloride Flush 3 ML SYRINGE IVFLUSH ×3 (08:19→19:44)
[2020-05-07] MEDS: Dextrose 5 % 1,000 ML 100 ML IVCONT ×2 (09:25→19:39)
--- NOTE | 2020-05-07 09:42 | MHC.CM.PN ---
Patient is here with AMS;CM spoke with /HCP/[place] @ [phone] and addressed IMM, mailing original certified mail to [place] and placing a copy on the chart. Patient lives in a house with his and adult Grandson and he uses both a walker and a w/c to assist with mobility. Patient's PCP is Dr. Miguel Khalil.Goal for dc is home with a new referral to [facility] @ a local SNF pending PT eval,(permission was granted to CM to make SNF referrals in this area).CM has initiated and will follow for dc planning.
--- NOTE | 2020-05-07 10:55 | P.CDIC_ITS ---
CDI Concurrent Query Service Date: 05/07/20 Documentation Clarification: Please clarify if you are treating a proba ble/suspected/likely or confirmed: Cellulitis bilateral lower extremities due to Diabetes Mellitus Cellulitis bilateral lower extremities due to Chronic Venous Stasis Provider Response: Other Other Diagnosis: Cellulitis bilateral lower extremities due to Chronic Venous Stasis PLEASE DO NOT DELETE/MODIFY EXISTING CONTENT Additional information is needed in order to code to the highest accuracy and appropriate Severity of Illness (SOI). Please clarify the information noted below in your progress notes and discharge summary. Risk Factors/Clinical Indicators/Treatments 74 year old male admitted with bilateral lower extremity cellulitis. PMH: Diabetes Mellitus, CHF, Hypertension Has bilateral chronic venous stasis, both legs edematous, eschar above right tibia. T 92.6, P 63, R 17, BP 105/49 Per H&P diagnosis: Billateral Cellulitis, Acute Encephalopathy, Hypothermia CDS: Ava Cunningham RN Contact Number: [phone] Please Review the information above and exercise your independent professional judgment in responding to the query. If you concur, pleas document in the PROGRESS NOTES and DISCHARGE SUMMARY. If you do not agree with the query, please document in the query above. THIS QUERY IS PART OF THE PERMANENT MEDICAL RECORD
--- NOTE | 2020-05-07 11:08 | P.CONNP_ITS ---
History of Present Illness Reason for Consult Consult date: 05/07/20 Reason for consult: HyperNa and JETT Chief Complaint Chief complaint: AMS History of Present Illness Narrative: 74 y/o adm with cellulitis of legs on backdrop of chronic leg ulcers and noted renal failure and hyper Na. Poor histroian and info obtained form EHR. Scr was 2.0 back in 2018 which appears to be his bsl. He deneis any voiding probs. No NSAID use. He is unaware of priro kidney problems Review of Systems Review of Systems Denies any recent fever chills or decrease in appetite respiratory denies any shortness of breath coverage production cardiovascular is adjustment of any PND or edema gastrointestinal denies any dysphagia abdominal pain nausea vomiting or diarrhea genitourinary denies any dysuria frequency or hematuria musculoskeletal denies any joint pain or swelling neuropsych denies any weakness or seizures all other systems reviewed are negative [facility] Past Medical History Medical History CHF (congestive heart failure) Diabetes HTN (hypertension) Hypothyroidism Social History Social History Household Members: Spouse Housing: House Do you presently have visiting nurse or other home services: No Unable to assess alcohol history related to: Unable to respond Alcohol intake: unknown Smoking Status: Unknown if ever smoked Use of substances other than those prescribed or required for medical reasons: Unknown Currently Displaying Signs/Symptoms of Drug Intoxication Withdrawal: No Advance Directives: No Advance Directives Information Provided: No Do you have thoughts of harming others: None Do you have a plan to hurt others: No Plan Recently lost weight without trying: Unsure service: No Current occupational status: retired Meds Allergies Allergy/AdvReac Type Severity Reaction Status Date / Time No Known Allergies Allergy Unknown NONE Unverified 11/17/19 14:44 Active Medications: Current Medications Generic Name Dose Route Start Last Admin Trade Name Freq PRN Reason Stop Dose Admin Acetaminophen 650 mg 05/06/20 16:58 Acetaminophen 325 Mg Tablet PO Q6H PRN Pain, Mild (Pain Scale 1-3) Albuterol/Ipratropium 3 ml 05/06/20 17:13 Albuterol/Iprat 2.5/0.5mg 3 Ml Ampul.Neb INHALE RQ4H PRN Wheezing Doxycycline Hyclate 100 mg 05/06/20 18:00 05/07/20 06:16 Doxycycline Hyclate 100 Mg Tablet PO Not Given Q12H [facility] Heparin Sodium (Porcine) 5,000 unit 05/06/20 18:00 05/07/20 06:17 Heparin Sodium,Porcine 5,000 Unit/Ml Vial SUBCUT 5,000 unit Q12H [facility] Administration Piperacillin Sod/Tazobactam 50 mls @ 100 mls/hr 05/06/20 20:00 05/07/20 09:03 Sod 3.375 gm/ Sodium Chloride IV Infused Q6H [facility] Infusion Dextrose 1,000 mls @ 100 mls/hr 05/07/20 09:00 05/07/20 09:25 D5w IVCONT 100 mls/hr .Q10H [facility] Administration Levothyroxine Sodium 125 mcg 05/07/20 09:00 05/07/20 09:25 Levothyroxine Sodium 125 Mcg Tablet PO Not Given DAILY [facility] Metoprolol Tartrate 25 mg 05/07/20 09:00 05/07/20 09:25 Metoprolol Tartrate 25 Mg Tablet PO Not Given DAILY [facility] Protocol Nystatin 1 appl 05/07/20 09:00 Nystatin Powder 15 Gm Bottle TOPICAL TID [facility] Protocol Ondansetron HCl 4 mg 05/06/20 16:58 Ondansetron Hcl 4 Mg/2 Ml Vial IVPUSH Q8H PRN Nausea and Vomiting Sodium Chloride 3 ml 05/07/20 00:00 05/07/20 08:19 0.9 % Sodium Chloride Flush 3 Ml Syringe IVFLUSH 3 ml QSHIFT [facility] Administration Tamsulosin HCl 0.4 mg 05/07/20 09:00 Tamsulosin Hcl 0.4 Mg Capsule PO DAILY [facility] Home Medications Medication Instructions Recorded Confirmed Last Taken Type furosemide 1 tab PO TID 05/06/20 05/06/20 Unknown History levothyroxine 1 tab PO DAILY 05/06/20 05/06/20 Unknown History metoprolol tartrate 1 tab PO DAILY 05/06/20 05/06/20 Unknown History spironolactone 1 tab PO BID 05/06/20 05/06/20 Unknown History tamsulosin 1 cap PO DAILY 05/06/20 05/06/20 Unknown History Physical Exam Vital Signs: Last Vital Signs Temp 98.0 F 05/07/20 08:00 Pulse 101 H 05/07/20 09:25 Resp 20 05/07/20 08:00 BP 128/67 05/07/20 09:25 Pulse Ox 94 05/07/20 08:00 Body Mass Index 40.4 Const General: cooperative Cardio Jugular venous distension: no JVD Rate: regular rate Skin Lesions: lesion noted and other (ulcer bekah and redness) Results Lab Results Result Diagrams: 05/07/20 04:08 05/07/20 04:08 Lab results: Chemistry 05/06/20 05/06/20 05/07/20 14:24 16:47 04:08 Sodium 149 H 149 H 151 H Potassium 4.3 4.0 4.1 Carbon Dioxide 24 24 BUN 50 H 50 H 49 H Creatinine 2.20 H 1.99 H 2.03 H Calcium 8.5 7.8 L D 8.3 L D Hematology 05/06/20 05/07/20 14:24 04:08 WBC 6.6 7.9 Hgb 11.6 L 10.9 L Plt Count 103 L 99 L Urinalysis 05/06/20 16:11 Urine Color YELLOW Urine Appearance CLEAR Urine pH 5.0 Ur Specific [place] 1.020 Urine Protein NEG Urine Glucose (UA) NEG Urine Ketones NEG Urine Blood NEG Urine Nitrite NEG Ur Leukocyte Esterase NEG Assessment and Plan (1) Cellulitis: Qualifiers: Laterality: unspecified laterality Site of cellulitis: extremity Site of cellulitis of extremity: lower extremity Qualified Code(s): L03.119 - Cellulitis of unspecified part of limb Status: Acute 74 year old man with history of CHF and hypothyroidism admitted with acute encephalopathy related to dehydration and cellulitis and noted renal dysfunc and hyperNa 1. CKD 3b: bsl SCr 2.0; etiol unlcear but its been longstanding; UA unremarkable; suspecty age related vs HTN nephrosclerosis 2. HyperNa: por po intake 3. cellulitis REC: agree with cont IV hypotonic fluids; track UOP/renal func; avoid NSAIDs will follow with team Procedures Date of Service Date of Service: 05/07/20
[2020-05-07] MEDS: Nystatin Powder 15 GM BOTTLE 1 APPL TOPICAL ×3 (11:09→19:44)
--- NOTE | 2020-05-07 11:47 | P.PNIM_ITS ---
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 Systemic review: Non verbal to communicate Physical Exam Vital Signs: Vital Signs: Last Vital Signs Temp 97.2 F 05/07/20 11:24 Pulse 95 05/07/20 11:24 Resp 18 05/07/20 11:24 BP 129/59 L 05/07/20 11:24 Pulse Ox 93 05/07/20 11:24 Body Mass Index 40.4 Const: Other: Constitutional : Encephalopathic, not alert, sleeping , does not lock in distress Neck : Normal inspection, Supple Cardiovascular : RRR, S1 S2, no lower extremity edema Respiratory : Good bilateral air entry, bilateral PE cells crackles, wheezes or rhonchi Gastrointestinal: soft, lax, Normal bowel sounds, Non tender Skin : Warm/Dry, No rash Neurological : encephalopathic, open eyes to stimuli but not verbal, No other focal deficit Objective Data Current Medications Generic Name Dose Route Start Last Admin Trade Name Alek PRN Reason Stop Dose Admin Acetaminophen 650 mg 05/06/20 16:58 Acetaminophen 325 Mg Tablet PO Q6H PRN Pain, Mild (Pain Scale 1-3) Albuterol/Ipratropium 3 ml 05/06/20 17:13 Albuterol/Iprat 2.5/0.5mg 3 Ml Ampul.Neb INHALE RQ4H PRN Wheezing Doxycycline Hyclate 100 mg 05/06/20 18:00 05/07/20 06:16 Doxycycline Hyclate 100 Mg Tablet PO Not Given Q12H [facility] Heparin Sodium (Porcine) 5,000 unit 05/06/20 18:00 05/07/20 06:17 Heparin Sodium,Porcine 5,000 Unit/Ml Vial SUBCUT 5,000 unit Q12H [facility] Administration Piperacillin Sod/Tazobactam 50 mls @ 100 mls/hr 05/06/20 20:00 05/07/20 09:03 Sod 3.375 gm/ Sodium Chloride IV Infused Q6H [facility] Infusion Dextrose 1,000 mls @ 100 mls/hr 05/07/20 09:00 05/07/20 09:25 D5w IVCONT 100 mls/hr .Q10H [facility] Administration Levothyroxine Sodium 125 mcg 05/07/20 09:00 05/07/20 09:25 Levothyroxine Sodium 125 Mcg Tablet PO Not Given DAILY [facility] Metoprolol Tartrate 25 mg 05/07/20 09:00 05/07/20 09:25 Metoprolol Tartrate 25 Mg Tablet PO Not Given DAILY [facility] Protocol Nystatin 1 appl 05/07/20 09:00 05/07/20 11:09 Nystatin Powder 15 Gm Bottle TOPICAL 1 appl TID [facility] Administration Protocol Ondansetron HCl 4 mg 05/06/20 16:58 Ondansetron Hcl 4 Mg/2 Ml Vial IVPUSH Q8H PRN Nausea and Vomiting Sodium Chloride 3 ml 05/07/20 00:00 05/07/20 08:19 0.9 % Sodium Chloride Flush 3 Ml Syringe IVFLUSH 3 ml QSHIFT [facility] Administration Tamsulosin HCl 0.4 mg 05/07/20 09:00 05/07/20 11:10 Tamsulosin Hcl 0.4 Mg Capsule PO Not Given DAILY [facility] Labs CBC & Chem 7: 05/07/20 04:08 05/07/20 04:08 Assessment and Plan (1) Cellulitis: Status: Acute (2) Acute metabolic encephalopathy: Status: Acute (3) Hypernatremia: Status: Acute (4) CKD (chronic kidney disease), stage III: Status: Acute (5) Aspiration pneumonia: Status: Acute (6) Hypoxemia requiring supplemental oxygen: Status: Acute Assessment and Plan: 74 year old man with history of CHF and hypothyroidism admitted with acute encephalopathy related to dehydration and cellulitis. Acute metabolic encephalopathy Patient obtunded and nonverbal Worsening over the last week Will need to treat electrolyte imbalance, infection His mental baseline seems to be poor to start with Bilateral lower extremity Cellulitis Not septic continue Zosyn and Doxycycline ID to follow. Hypoxemia requiring oxygen supplement Aspiration pneumonia CXR overnight showed infiltrate Culture sent Continue IV antibiotic Wean oxygen down as tolerated Hypernatremia Sodium of 150 Start D5 water Repeat [facility] Nephrology following Hypothermia Resolved CHF No exacerbation. Hold Lasix and spironolactone for now due to hypernatremia. COPD Albuterol as needed. Hypothyroidism TSH 4.75, Free T4 1.19. Subclinical. Continue Levothyroxine. DVT prophylaxis with Heparin
--- NOTE | 2020-05-07 11:50 | P.CDIC_ITS ---
CDI Concurrent Query Service Date: 05/07/20 Documentation Clarification: Please clarify if you are treating a proba ble/suspected/likely or confirmed: Acute Hypoxic Respiratory Failure No Acute Hypoxic Respiratory Failure Provider Response: Other Other Diagnosis: Hypoxemia requiring O2 supplement PLEASE DO NOT DELETE/MODIFY EXISTING CONTENT Additional information is needed in order to code to the highest accuracy and appropriate Severity of Illness (SOI). Please clarify the information noted below in your progress notes and discharge summary. Risk Factors/Clinical Indicators/Treatments 74 year old male admitted with SAT 87% on room air. Respiratory rate range 17 - 29 Receive 2L oxygen via nasal cannula Repeat CXR: Pneumonia IV antibiotic therapy Per MD progress note 05/07/20: Hypoxic CDS: Ava Cunningham RN Contact Number: [phone] Please Review the information above and exercise your independent professional judgment in responding to the query. If you concur, pleas document in the PROGRESS NOTES and DISCHARGE SUMMARY. If you do not agree with the query, please document in the query above. THIS QUERY IS PART OF THE PERMANENT MEDICAL RECORD
--- NOTE | 2020-05-07 12:07 | MHC.SLORD ---
Bedside dysphagia evaluation was ordered as patient was unable to take PO medication and did not elicit swallow trigger. DIGITAL MEDIA REPRESENTATIVE attempted to see patient for PO trials. Patient did not wake to sternal rub, verbal stimuli, and change in positioning. Due to lethargy, patient is not appropriate for dysphagia evaluation at this time. Please notify DIGITAL MEDIA REPRESENTATIVE by tiger message if patient becomes more awake and alert today. Otherwise, plan to re-attempt evaluation tomorrow morning. RN and MD notified. Name: Pedro Luis Lozano Date of : 1945 Age: 74 Date of Registration: 05/06/20 Speech Language Pathology Order Status:
[2020-05-07 15:55] LABS: Anion Gap 14 (12-20); Blood Urea Nitrogen 44 mg/dL (9-16); Calcium 8.1 mg/dL (8.4-10.2); Carbon Dioxide 25 mmol/L (22-29); Chloride 116 mmol/L (96-108); Creatinine Clr Calc Pharmacy 33.3; Estimated Glomerular Filt Rate 29; Glucose Random 157 mg/dL (60-115); Potassium 4.1 mmol/L (3.3-5.1); Sodium 151 mmol/L (135-145)
--- NOTE | 2020-05-07 16:42 | W.PM.IDCN ---
History of Present Illness Data of Consult Service Date: 05/07/20 Requesting physician: Dev Del Toro Primary Care Provider: Unknown Physician HPI Reason for consult: possible sepsis He was brought to ER due to decreased responsiveness by He has hypernatremia and dehydration He has reddened bilateral lower extremities Review of Systems Review of Systems: Yes Unobtainable due to mental status PMFSH Past Medical History Medical History CHF (congestive heart failure) Diabetes HTN (hypertension) Hypothyroidism Family History Family history: reviewed and not pertinent Social History Social History Household Members: Spouse Housing: House Do you presently have visiting nurse or other home services: No Unable to assess alcohol history related to: Unable to respond Alcohol intake: unknown Smoking Status: Unknown if ever smoked Use of substances other than those prescribed or required for medical reasons: Unknown Currently Displaying Signs/Symptoms of Drug Intoxication Withdrawal: No Advance Directives: No Advance Directives Information Provided: No Do you have thoughts of harming others: None Do you have a plan to hurt others: No Plan Recently lost weight without trying: Unsure service: No Current occupational status: retired Meds Allergies Allergy/AdvReac Type Severity Reaction Status Date / Time No Known Allergies Allergy Unknown NONE Unverified 11/17/19 14:44 Active Medications: Current Medications Generic Name Dose Route Start Last Admin Trade Name Freq PRN Reason Stop Dose Admin Acetaminophen 650 mg 05/06/20 16:58 Acetaminophen 325 Mg Tablet PO Q6H PRN Pain, Mild (Pain Scale 1-3) Albuterol/Ipratropium 3 ml 05/06/20 17:13 Albuterol/Iprat 2.5/0.5mg 3 Ml Ampul.Neb INHALE RQ4H PRN Wheezing Doxycycline Hyclate 100 mg 05/06/20 18:00 05/07/20 06:16 Doxycycline Hyclate 100 Mg Tablet PO Not Given Q12H [facility] Heparin Sodium (Porcine) 5,000 unit 05/06/20 18:00 05/07/20 06:17 Heparin Sodium,Porcine 5,000 Unit/Ml Vial SUBCUT 5,000 unit Q12H [facility] Administration Piperacillin Sod/Tazobactam 50 mls @ 100 mls/hr 05/06/20 20:00 05/07/20 15:51 Sod 3.375 gm/ Sodium Chloride IV Infused Q6H [facility] Infusion Dextrose 1,000 mls @ 125 mls/hr 05/07/20 09:00 05/07/20 09:25 D5w IVCONT 100 mls/hr .Q8H [facility] Administration Levothyroxine Sodium 125 mcg 05/07/20 09:00 05/07/20 09:25 Levothyroxine Sodium 125 Mcg Tablet PO Not Given DAILY [facility] Metoprolol Tartrate 25 mg 05/07/20 09:00 05/07/20 09:25 Metoprolol Tartrate 25 Mg Tablet PO Not Given DAILY [facility] Protocol Nystatin 1 appl 05/07/20 09:00 05/07/20 15:20 Nystatin Powder 15 Gm Bottle TOPICAL 1 appl TID [facility] Administration Protocol Ondansetron HCl 4 mg 05/06/20 16:58 Ondansetron Hcl 4 Mg/2 Ml Vial IVPUSH Q8H PRN Nausea and Vomiting Sodium Chloride 3 ml 05/07/20 00:00 05/07/20 15:20 0.9 % Sodium Chloride Flush 3 Ml Syringe IVFLUSH 3 ml QSHIFT [facility] Administration Tamsulosin HCl 0.4 mg 05/07/20 09:00 05/07/20 11:10 Tamsulosin Hcl 0.4 Mg Capsule PO Not Given DAILY [facility] Home Medications Medication Instructions Recorded Confirmed Last Taken Type furosemide 1 tab PO TID 05/06/20 05/06/20 Unknown History levothyroxine 1 tab PO DAILY 05/06/20 05/06/20 Unknown History metoprolol tartrate 1 tab PO DAILY 05/06/20 05/06/20 Unknown History spironolactone 1 tab PO BID 05/06/20 05/06/20 Unknown History tamsulosin 1 cap PO DAILY 05/06/20 05/06/20 Unknown History Physical Exam Vital Signs: Vital Signs: Last Vital Signs Temp 98.8 F 05/07/20 15:13 Pulse 97 05/07/20 15:13 Resp 25 H 05/07/20 15:13 BP 131/60 05/07/20 15:13 Pulse Ox 95 05/07/20 15:13 Body Mass Index 40.4 Const: General: cooperative Eyes: General: appearance normal, both eyes and all related structures Resp: Effort & Inspection: normal respiratory effort Cardio: Rate: regular rate Rhythm: regular rhythm GI: Palpation (GI): Soft to palpation and nontender Skin: Other: bilateral venous stasis changes,chronic legs Results Labs CBC & Chem 7: 05/07/20 04:08 05/07/20 15:04 Labs: Short CBC 05/07/20 Range/Units 04:08 WBC 7.9 (4.8-10.8) X10*3/uL Hgb 10.9 L (14.0-18.0) g/dl Hct 35.1 L (42-52) % Plt Count 99 L (160-400) X10*3/uL BMP 05/06/20 05/07/20 05/07/20 16:47 04:08 15:04 Sodium 149 H 151 H 151 H Potassium 4.0 4.1 4.1 Chloride 116 H 116 H 116 H Carbon Dioxide 24 24 25 BUN 50 H 49 H 44 H Creatinine 1.99 H 2.03 H 2.19 H Calcium 7.8 L D 8.3 L D 8.1 L Microbiology Microbiology Results: Microbiology 05/06/20 14:27 Blood - Venous Blood Culture - Preliminary No growth after 24 hours. 05/06/20 14:24 Blood - Venous Blood Culture - Preliminary No growth after 24 hours. Assessment and Plan (1) Cellulitis: Qualifiers: Laterality: unspecified laterality Site of cellulitis: extremity Site of cellulitis of extremity: lower extremity Qualified Code(s): L03.119 - Cellulitis of unspecified part of limb Problem details: Bilateral venous stasis changes with inflammation Possible staph or strep,there is no purulence Status: Acute IV Clindamycin topical steroids Elevation and compression
[2020-05-07 18:31] LABS: B Type Natriuretic Peptide 158 pg/mL (<100)
[2020-05-07] MEDS: Clindamycin Phosphate/D5W 600 MG/50 ML PIGGYBACK 100 MG IV (19:39)
[2020-05-07] MEDS: Betamethasone Dip Aug 0.05% Cr 15 GM TUBE 1 APPL TOPICAL (19:44)
[2020-05-08] VITALS (8 sets, daily range): BP systolic 111–158; BP diastolic 52–84; PULSE 95–105; RESP 18–24; TEMP 36.4–37.2; O2SAT 94–100
[2020-05-08] MEDS: Clindamycin Phosphate/D5W 600 MG/50 ML PIGGYBACK 100 MG IV ×3 (03:03→18:04)
[2020-05-08] MEDS: Heparin Sodium,Porcine 5,000 UNIT/ML VIAL 5000 UNIT SUBCUT ×2 (06:04→18:04)
[2020-05-08] MEDS: Dextrose 5 % 1,000 ML 100 ML IVCONT ×2 (06:09→11:00)
[2020-05-08 06:34] LABS: Hematocrit 34.1 % (42-52); Hemoglobin 10.5 g/dl (14.0-18.0); Mean Corpuscular HGB Conc 30.8 g/dl (31.0-36.0); Mean Corpuscular Hemoglobin 28.7 pg (27.0-33.0); Mean Corpuscular Volume 93.2 fL (80-98); Mean Platelet Volume 12.5 fL (9.4-12.4); NRBC Pct Auto 0.4 /100WBC (0.0-0.2); Platelet Count 103 X10*3/uL (160-400); Red Blood Count 3.66 X10*6/uL (4.60-5.80); Red Cell Distribution Width 16.7 % (11.0-16.0); White Blood Count 10.2 X10*3/uL (4.8-10.8)
[2020-05-08 06:39] LABS: INTERNATIONAL NORM RATIO 1.2 (0.9-1.1); Prothrombin Time 13.9 SEC (10.8-13.0)
[2020-05-08 06:55] LABS: Alanine Aminotransferase 60 U/L (0-40); Albumin Level 2.9 g/dL (3.5-5.0); Alkaline Phosphatase 82 U/L (39-117); Anion Gap 12 (12-20); Aspartate Amino Transferase 49 U/L (5-37); Bilirubin Direct 0.3 mg/dL (0.0-0.5); Bilirubin Total 0.5 mg/dL (0.0-1.0); Blood Urea Nitrogen 43 mg/dL (9-16); Carbon Dioxide 25 mmol/L (22-29); Chloride 117 mmol/L (96-108); Creatinine Clr Calc Pharmacy 33.8; Estimated Glomerular Filt Rate 30; Glucose Random 136 mg/dL (60-115); Lactate Dehydrogenase 258 U/L (118-273); Potassium 3.9 mmol/L (3.3-5.1); Sodium 150 mmol/L (135-145); Total Protein 5.9 g/dL (6.5-8.0)
[2020-05-08] MEDS: Nystatin Powder 15 GM BOTTLE 1 APPL TOPICAL ×3 (08:06→20:44)
[2020-05-08] MEDS: Betamethasone Dip Aug 0.05% Cr 15 GM TUBE 1 APPL TOPICAL ×2 (08:06→20:44)
[2020-05-08] MEDS: 0.9 % Sodium Chloride Flush 3 ML SYRINGE IVFLUSH ×3 (08:06→20:44)
[2020-05-08 09:07] LABS: NT-proBNP 259 pg/mL
[2020-05-08 15:05] LABS: Anion Gap 10 (12-20); Blood Urea Nitrogen 40 mg/dL (9-16); Carbon Dioxide 27 mmol/L (22-29); Chloride 115 mmol/L (96-108); Creatinine Clr Calc Pharmacy 34.8; Estimated Glomerular Filt Rate 31; Glucose Random 128 mg/dL (60-115); Potassium 3.8 mmol/L (3.3-5.1); Sodium 148 mmol/L (135-145)
--- NOTE | 2020-05-08 15:33 | P.PNIM_ITS ---
Subjective Subjective Date of Service: 05/08/20 Interval History: The patient was seen and evaluated this morning Laying in bed, sleeping, more alert and tries to say reports but still not following commands Nonverbal today, trying to say okay but falls back to sleep. No reported other overnight events. Systemic review: Non verbal to communicate Physical Exam Vital Signs: Vital Signs: Last Vital Signs Temp 98.9 F 05/08/20 11:02 Pulse 99 05/08/20 11:02 Resp 20 05/08/20 11:02 BP 135/70 05/08/20 11:02 Pulse Ox 94 05/08/20 11:02 Body Mass Index 40.4 Const: Other: Constitutional : Encephalopathic, not alert, sleeping , does not look in distress Neck : Normal inspection, Supple Cardiovascular : RRR, S1 S2, no lower extremity edema Respiratory : Good bilateral air entry, bilateral PE cells crackles, wheezes or rhonchi Gastrointestinal: soft, lax, Normal bowel sounds, Non tender Skin : Warm/Dry, No rash Neurological : encephalopathic, moving all extremities, open eyes to stimuli but not verbal, No other focal deficit Objective Data Current Medications Generic Name Dose Route Start Last Admin Trade Name Freq PRN Reason Stop Dose Admin Acetaminophen 650 mg 05/06/20 16:58 Acetaminophen 325 Mg Tablet PO Q6H PRN Pain, Mild (Pain Scale 1-3) Albuterol/Ipratropium 3 ml 05/06/20 17:13 Albuterol/Iprat 2.5/0.5mg 3 Ml Ampul.Neb INHALE RQ4H PRN Wheezing Betamethasone Dipropion Augmented 1 appl 05/07/20 21:00 05/08/20 08:06 Betamethasone Dip Aug 0.05% Cr 15 Gm Tube TOPICAL 1 appl BID [facility] Administration Protocol Heparin Sodium (Porcine) 5,000 unit 05/06/20 18:00 05/08/20 06:04 Heparin Sodium,Porcine 5,000 Unit/Ml Vial SUBCUT 5,000 unit Q12H [facility] Administration Dextrose 1,000 mls @ 150 mls/hr 05/07/20 09:00 05/08/20 11:00 D5w IVCONT 100 mls/hr .Q6H40M [facility] Administration Clindamycin Phosphate 600 mg in 50 mls @ 100 mls/hr 05/07/20 18:30 05/08/20 11:41 Cleocin IV Infused Q8H [facility] Infusion Levothyroxine Sodium 125 mcg 05/07/20 09:00 05/08/20 08:06 Levothyroxine Sodium 125 Mcg Tablet PO Not Given DAILY [facility] Metoprolol Tartrate 25 mg 05/07/20 09:00 05/08/20 08:06 Metoprolol Tartrate 25 Mg Tablet PO Not Given DAILY [facility] Protocol Nystatin 1 appl 05/07/20 09:00 05/08/20 15:20 Nystatin Powder 15 Gm Bottle TOPICAL 1 appl TID [facility] Administration Protocol Ondansetron HCl 4 mg 05/06/20 16:58 Ondansetron Hcl 4 Mg/2 Ml Vial IVPUSH Q8H PRN Nausea and Vomiting Sodium Chloride 3 ml 05/07/20 00:00 05/08/20 15:20 0.9 % Sodium Chloride Flush 3 Ml Syringe IVFLUSH 3 ml QSHIFT [facility] Administration Tamsulosin HCl 0.4 mg 05/07/20 09:00 05/08/20 08:07 Tamsulosin Hcl 0.4 Mg Capsule PO Not Given DAILY [facility] Labs CBC & Chem 7: 05/08/20 05:44 05/08/20 14:09 Microbiology Microbiology Results: Microbiology 05/06/20 14:27 Blood - Venous Blood Culture - Preliminary No growth after 24 hours. 05/06/20 14:24 Blood - Venous Blood Culture - Preliminary No growth after 24 hours. Assessment and Plan (1) Cellulitis: Problem details: Area appears about the same There is still inflammation,demarcated due to venous stasis change Status: Acute (2) Acute metabolic encephalopathy: Status: Acute (3) Hypernatremia: Status: Acute (4) CKD (chronic kidney disease), stage III: Status: Acute (5) Aspiration pneumonia: Status: Acute (6) Hypoxemia requiring supplemental oxygen: Status: Acute Assessment and Plan: 74 year old man with history of CHF and hypothyroidism admitted with acute encephalopathy related to dehydration and cellulitis. Acute metabolic encephalopathy Patient fortunately more awake today and nonverbal Worsening over the last week For any acute findings Will need to treat electrolyte imbalance, infection His mental baseline seems to be poor at baseline Bilateral lower extremity Cellulitis Not septic Bilateral venous stasis changes with inflammation Possible staph or strep,there is no purulence Antibiotics changed to clindamycin ID input appreciated Hypoxemia requiring oxygen supplement Aspiration pneumonia CXR overnight showed infiltrate Culture pending Continue IV antibiotic Wean oxygen down as tolerated Hypernatremia Sodium of 150 Increased rate D5 water to 150 Repeat BMP Nephrology following Hypothermia Resolved CHF No exacerbation. Hold Lasix and spironolactone for now due to hypernatremia. COPD Albuterol as needed. Hypothyroidism TSH 4.75, Free T4 1.19. Subclinical. Continue Levothyroxine. DVT prophylaxis Heparin
--- NOTE | 2020-05-08 15:33 | PM.IDPN ---
Subjective Subjective Date of Service: 05/17/20 Interval History: leg looks about same,patient sleepy Objective Data Labs CBC & Chem 7: 05/16/20 06:12 05/16/20 06:12 Labs: Laboratory Results - last 24 hr 05/06/20 05/07/20 05/07/20 21:56 15:04 17:49 WBC RBC Hgb Hct MCV MCH MCHC RDW Plt Count MPV Absolute Nucleated RBC Nucleated RBC % (auto) PT INR Sodium 151 H Potassium 4.1 Chloride 116 H Carbon Dioxide 25 Anion Gap 14 BUN 44 H Creatinine 2.19 H Estim Creat Clear Calc 33.3 Estimated GFR 29 Random Glucose 157 H D Calcium 8.1 L Total Bilirubin Direct Bilirubin AST ALT Alkaline Phosphatase Lactate Dehydrogenase B-Natriuretic Peptide 158 H NT-Pro-B Natriuret Pep 259 H Total Protein Albumin 05/08/20 05/08/20 05/08/20 05:44 05:44 05:44 WBC 10.2 RBC 3.66 L Hgb 10.5 L Hct 34.1 L MCV 93.2 MCH 28.7 MCHC 30.8 L RDW 16.7 H Plt Count 103 L MPV 12.5 H Absolute Nucleated RBC 0.040 H Nucleated RBC % (auto) 0.4 H PT 13.9 H INR 1.2 H Sodium 150 H Potassium 3.9 Chloride 117 H Carbon Dioxide 25 Anion Gap 12 BUN 43 H Creatinine 2.16 H Estim Creat Clear Calc 33.8 Estimated GFR 30 Random Glucose 136 H Calcium 8.0 L Total Bilirubin 0.5 Direct Bilirubin 0.3 AST 49 H ALT 60 H Alkaline Phosphatase 82 Lactate Dehydrogenase 258 B-Natriuretic Peptide NT-Pro-B Natriuret Pep Total Protein 5.9 L Albumin 2.9 L 05/08/20 14:09 WBC RBC Hgb Hct MCV MCH MCHC RDW Plt Count MPV Absolute Nucleated RBC Nucleated RBC % (auto) PT INR Sodium 148 H Potassium 3.8 Chloride 115 H Carbon Dioxide 27 Anion Gap 10 L BUN 40 H Creatinine 2.10 H Estim Creat Clear Calc 34.8 Estimated GFR 31 Random Glucose 128 H Calcium 8.0 L Total Bilirubin Direct Bilirubin AST ALT Alkaline Phosphatase Lactate Dehydrogenase B-Natriuretic Peptide NT-Pro-B Natriuret Pep Total Protein Albumin Microbiology Microbiology Results: Microbiology 05/06/20 14:27 Blood - Venous Blood Culture - Preliminary No growth after 24 hours. 05/06/20 14:24 Blood - Venous Blood Culture - Preliminary No growth after 24 hours. Physical Exam Vital Signs: Vital Signs: Last Vital Signs Temp 98.9 F 05/08/20 11:02 Pulse 99 05/08/20 11:02 Resp 20 05/08/20 11:02 BP 135/70 05/08/20 11:02 Pulse Ox 94 05/08/20 11:02 Body Mass Index 40.4 Const: General: cooperative HENMT: Head: Yes normal to inspection Mouth: Normal oral and palatal mucosa present Resp: Effort & Inspection: normal respiratory effort Cardio: Rate: regular rate Rhythm: regular rhythm GI: Palpation (GI): Soft to palpation and nontender Skin: General skin exam: no rashes or lesions noted Extrem: Other: slight decreased erythema legs Assessment and Plan Assessment and plan (1) Cellulitis: Problem details: resolved Status: Acute Assessment and Plan: Would continue Clindamycin,day 2 and topical steroid,possible outpatient 300 mg tid for 5 d outpatient Time Spent With Patient Time: Total time spent is greater than 50% in coordination of care (as documented) at patient's floor/unit and/or counseling patient: Time with patient: 15 - 24 minutes
[2020-05-08] MEDS: Dextrose 5 % 1,000 ML 150 ML IVCONT (18:05)
--- NOTE | 2020-05-08 19:04 | PM.PNNEP ---
Subjective Subjective Date of Service: 05/08/20 Interval history: seen and examined. events noted Physical Exam Vital Signs: Vital Signs: Last Vital Signs Temp 98.8 F 05/08/20 18:23 Pulse 104 H 05/08/20 18:23 Resp 18 05/08/20 18:23 BP 158/84 H 05/08/20 18:23 Pulse Ox 100 05/08/20 18:23 Body Mass Index 40.4 Const: General: cooperative Cardio: Jugular venous distension: no JVD Rate: regular rate Skin: Lesions: lesion noted and other (ulcer bekah and redness) Objective Data Labs CBC & Chem 7: 05/08/20 05:44 05/08/20 14:09 Labs: Laboratory Results - last 24 hr 05/06/20 05/08/20 05/08/20 21:56 05:44 05:44 WBC 10.2 RBC 3.66 L Hgb 10.5 L Hct 34.1 L MCV 93.2 MCH 28.7 MCHC 30.8 L RDW 16.7 H Plt Count 103 L MPV 12.5 H Absolute Nucleated RBC 0.040 H Nucleated RBC % (auto) 0.4 H PT 13.9 H INR 1.2 H Sodium Potassium Chloride Carbon Dioxide Anion Gap BUN Creatinine Estim Creat Clear Calc Estimated GFR Random Glucose Calcium Total Bilirubin Direct Bilirubin AST ALT Alkaline Phosphatase Lactate Dehydrogenase NT-Pro-B Natriuret Pep 259 H Total Protein Albumin 05/08/20 05/08/20 05:44 14:09 WBC RBC Hgb Hct MCV MCH MCHC RDW Plt Count MPV Absolute Nucleated RBC Nucleated RBC % (auto) PT INR Sodium 150 H 148 H Potassium 3.9 3.8 Chloride 117 H 115 H Carbon Dioxide 25 27 Anion Gap 12 10 L BUN 43 H 40 H Creatinine 2.16 H 2.10 H Estim Creat Clear Calc 33.8 34.8 Estimated GFR 30 31 Random Glucose 136 H 128 H Calcium 8.0 L 8.0 L Total Bilirubin 0.5 Direct Bilirubin 0.3 AST 49 H ALT 60 H Alkaline Phosphatase 82 Lactate Dehydrogenase 258 NT-Pro-B Natriuret Pep Total Protein 5.9 L Albumin 2.9 L Microbiology Microbiology Results: Microbiology 05/06/20 14:27 Blood - Venous Blood Culture - Preliminary No growth after 48 hours. 05/06/20 14:24 Blood - Venous Blood Culture - Preliminary No growth after 48 hours. Assessment & Plan Assessment and plan (1) Cellulitis: Problem details: Area appears about the same There is still inflammation,demarcated due to venous stasis change Status: Acute Assessment and Plan: 74 year old man with history of CHF and hypothyroidism admitted with acute encephalopathy related to dehydration and cellulitis and noted renal dysfunc and hyperNa 1. CKD 3b: bsl SCr 2.0; etiol unlcear but its been longstanding; UA unremarkable; suspecty age related vs HTN nephrosclerosis 2. HyperNa:SNa slow to come down but still most c/w poor po intake; doubt DI given UOP is not impressive 3. cellulitis REC: agree with cont IV hypotonic fluids; track UOP/renal func; avoid NSAIDs will follow with team Time Spent With Patient Time: Total time spent is greater than 50% in coordination of care (as documented) at patient's floor/unit and/or counseling patient:
[2020-05-09] MEDS: Dextrose 5 % 1,000 ML 150 ML IVCONT (00:26)
[2020-05-09] MEDS: Clindamycin Phosphate/D5W 600 MG/50 ML PIGGYBACK 100 MG IV ×3 (02:05→17:19)
[2020-05-09 04:00] VITALS: BP 142/56; PULSE 107; RESP 24; TEMP 36.7; O2SAT 96
[2020-05-09] MEDS: Heparin Sodium,Porcine 5,000 UNIT/ML VIAL 5000 UNIT SUBCUT ×2 (05:58→17:19)
[2020-05-09 07:05] VITALS: BP 101/66; PULSE 103; RESP 22; TEMP 37.3; O2SAT 95
[2020-05-09 07:06] LABS: Anion Gap 12 (12-20); Blood Urea Nitrogen 35 mg/dL (9-16); Carbon Dioxide 26 mmol/L (22-29); Chloride 111 mmol/L (96-108); Creatinine Clr Calc Pharmacy 37.1; Estimated Glomerular Filt Rate 33; Glucose Random 110 mg/dL (60-115); Sodium 145 mmol/L (135-145)
[2020-05-09] MEDS: Nystatin Powder 15 GM BOTTLE 1 APPL TOPICAL ×3 (09:25→22:10)
[2020-05-09] MEDS: Betamethasone Dip Aug 0.05% Cr 15 GM TUBE 1 APPL TOPICAL ×2 (09:26→22:10)
--- NOTE | 2020-05-09 10:37 | MHC.SLORD ---
METER INSPECTOR attempted to see pt today for dysphagia therapy. Per RN, pt is not managing his own secretions and requires suctioning, Pt not appropriate for PO trials however, oral care was provided. METER INSPECTOR will re-attempt tomorrow morning. Name: Pedro Luis Lozano Date of : 1945 Age: 74 Date of Registration: 05/06/20 Speech Language Pathology Order Status:
--- NOTE | 2020-05-09 10:59 | MHC.CM.PN ---
Per ROUNDS discussion, Patient is not yet medically cleared for dc (IV Clindomycin). Home with VNA VS STR, pending PT eval is the goal and CM will continue to follow for dc planning.
[2020-05-09 11:04] VITALS: BP 126/60; PULSE 100; RESP 22; TEMP 37.2; O2SAT 90
--- NOTE | 2020-05-09 12:17 | PM.PNNEP ---
Subjective Subjective Date of Service: 05/09/20 Interval history: seen and examined. events noted Physical Exam Vital Signs: Vital Signs: Last Vital Signs Temp 99 F 05/09/20 11:04 Pulse 100 05/09/20 11:04 Resp 22 H 05/09/20 11:04 BP 126/60 05/09/20 11:04 Pulse Ox 90 L 05/09/20 11:04 Body Mass Index 40.4 Const: General: cooperative Cardio: Jugular venous distension: no JVD Rate: regular rate Skin: Lesions: lesion noted and other (ulcer bekah and redness) Objective Data Labs CBC & Chem 7: 05/08/20 05:44 05/09/20 05:38 Labs: Laboratory Results - last 24 hr 05/08/20 05/09/20 14:09 05:38 Sodium 148 H 145 Potassium 3.8 4.0 Chloride 115 H 111 H Carbon Dioxide 27 26 Anion Gap 10 L 12 BUN 40 H 35 H Creatinine 2.10 H 1.97 H Estim Creat Clear Calc 34.8 37.1 Estimated GFR 31 33 Random Glucose 128 H 110 Calcium 8.0 L 8.0 L Microbiology Microbiology Results: Microbiology 05/06/20 14:27 Blood - Venous Blood Culture - Preliminary No growth after 48 hours. 05/06/20 14:24 Blood - Venous Blood Culture - Preliminary No growth after 48 hours. Assessment & Plan Assessment and plan (1) Cellulitis: Problem details: Area appears about the same There is still inflammation,demarcated due to venous stasis change Status: Acute Assessment and Plan: 74 year old man with history of CHF and hypothyroidism admitted with acute encephalopathy related to dehydration and cellulitis and noted renal dysfunc and hyperNa 1. CKD 3b: bsl SCr 2.0; etiol unlcear but its been longstanding; UA unremarkable; suspecty age related vs HTN nephrosclerosis 2. HyperNa:SNa impoved with IVF ; still most c/w poor po intake; doubt DI given UOP is not impressive 3. cellulitis REC: encourage incr PO and may be able to d/c IVF; track UOP/renal func; avoid NSAIDs will follow with team Time Spent With Patient Time: Total time spent is greater than 50% in coordination of care (as documented) at patient's floor/unit and/or counseling patient:
--- NOTE | 2020-05-09 13:31 | HO.PM.IMPN ---
Subjective Subjective Date of Service: 05/09/20 Interval History: The patient was seen and evaluated this morning Laying in bed, sleeping, more alert and interactive today as he was able to say few words and follow-up comment But keeps falling back to sleep. No reported other overnight events. Systemic review: Not much verbal to communicate Physical Exam Vital Signs: Vital Signs: Last Vital Signs Temp 99 F 05/09/20 11:04 Pulse 100 05/09/20 11:04 Resp 22 H 05/09/20 11:04 BP 126/60 05/09/20 11:04 Pulse Ox 90 L 05/09/20 11:04 Body Mass Index 40.4 Const: Other: Constitutional : Encephalopathic, more alert, sleeping , does not look in distress Neck : Normal inspection, Supple Cardiovascular : RRR, S1 S2, no lower extremity edema Respiratory : Good bilateral air entry, bilateral basal crackles, wheezes or rhonchi Gastrointestinal: soft, lax, Normal bowel sounds, Non tender Skin : Warm/Dry, No rash Neurological : encephalopathic, moving all extremities, open eyes to stimuli and follow commands, No other focal deficit Objective Data Current Medications Generic Name Dose Route Start Last Admin Trade Name Freq PRN Reason Stop Dose Admin Acetaminophen 650 mg 05/06/20 16:58 Acetaminophen 325 Mg Tablet PO Q6H PRN Pain, Mild (Pain Scale 1-3) Albuterol/Ipratropium 3 ml 05/06/20 17:13 Albuterol/Iprat 2.5/0.5mg 3 Ml Ampul.Neb INHALE RQ4H PRN Wheezing Betamethasone Dipropion Augmented 1 appl 05/07/20 21:00 05/09/20 09:26 Betamethasone Dip Aug 0.05% Cr 15 Gm Tube TOPICAL 1 appl BID [facility] Administration Protocol Heparin Sodium (Porcine) 5,000 unit 05/06/20 18:00 05/09/20 05:58 Heparin Sodium,Porcine 5,000 Unit/Ml Vial SUBCUT 5,000 unit Q12H [facility] Administration Dextrose 1,000 mls @ 50 mls/hr 05/07/20 09:00 05/09/20 09:29 D5w IVCONT Infused .Q20H [facility] Infusion Clindamycin Phosphate 600 mg in 50 mls @ 100 mls/hr 05/07/20 18:30 05/09/20 11:08 Cleocin IV Infused Q8H [facility] Infusion Levothyroxine Sodium 125 mcg 05/07/20 09:00 05/09/20 09:30 Levothyroxine Sodium 125 Mcg Tablet PO Not Given DAILY [facility] Metoprolol Tartrate 25 mg 05/07/20 09:00 05/09/20 09:29 Metoprolol Tartrate 25 Mg Tablet PO Not Given DAILY [facility] Protocol Nystatin 1 appl 05/07/20 09:00 05/09/20 09:25 Nystatin Powder 15 Gm Bottle TOPICAL 1 appl TID [facility] Administration Protocol Ondansetron HCl 4 mg 05/06/20 16:58 Ondansetron Hcl 4 Mg/2 Ml Vial IVPUSH Q8H PRN Nausea and Vomiting Sodium Chloride 3 ml 05/07/20 00:00 05/09/20 09:04 0.9 % Sodium Chloride Flush 3 Ml Syringe IVFLUSH Not Given QSHIFT [facility] Tamsulosin HCl 0.4 mg 05/07/20 09:00 05/09/20 09:30 Tamsulosin Hcl 0.4 Mg Capsule PO Not Given DAILY [facility] Labs CBC & Chem 7: 05/08/20 05:44 05/09/20 05:38 Microbiology Microbiology Results: Microbiology 05/06/20 14:27 Blood - Venous Blood Culture - Preliminary No growth after 48 hours. 05/06/20 14:24 Blood - Venous Blood Culture - Preliminary No growth after 48 hours. Assessment and Plan (1) Cellulitis: Status: Acute (2) Acute metabolic encephalopathy: Status: Acute (3) Hypernatremia: Status: Acute (4) CKD (chronic kidney disease), stage III: Status: Acute (5) Aspiration pneumonia: Status: Acute (6) Hypoxemia requiring supplemental oxygen: Status: Acute Assessment and Plan: 74 year old man with history of CHF and hypothyroidism admitted with acute encephalopathy related to dehydration and cellulitis. Acute metabolic encephalopathy more awake today and started to speak up Seems to be related mainly to hypernatremia and infection treat electrolyte imbalance, infection His mental baseline seems to be around normal, independent, functional at baseline Bilateral lower extremity Cellulitis Not septic Bilateral venous stasis changes with inflammation Possible staph or strep,there is no purulence Continue clindamycin ID input appreciated Hypoxemia requiring oxygen supplement Aspiration pneumonia CXR overnight showed infiltrate Culture negative Continue IV antibiotic Wean oxygen down as tolerated Hypernatremia Sodium of 145 Decrease D5 water to 50 Repeat BMP Nephrology following Hypothermia Resolved CHF No exacerbation. Hold Lasix and spironolactone for now due to hypernatremia. COPD Albuterol as needed. Hypothyroidism TSH 4.75, Free T4 1.19. Subclinical. Continue Levothyroxine. DVT prophylaxis Heparin
[2020-05-09 15:10] VITALS: BP 132/64; PULSE 87; RESP 25; TEMP 37.6; O2SAT 93
[2020-05-09] MEDS: 0.9 % Sodium Chloride Flush 3 ML SYRINGE IVFLUSH (16:29)
[2020-05-09 17:34] VITALS: BMI 40.1
[2020-05-09 19:49] VITALS: BP 134/63; PULSE 83; RESP 18; TEMP 37.3; O2SAT 95
[2020-05-09 19:51] VITALS: TEMP 37.2
[2020-05-10] VITALS (7 sets, daily range): BP systolic 104–132; BP diastolic 54–66; PULSE 83–94; RESP 20–22; TEMP 36.7–37.4; O2SAT 88–95
[2020-05-10] MEDS: Dextrose 5 % 1,000 ML 50 ML IVCONT (00:11)
[2020-05-10] MEDS: Clindamycin Phosphate/D5W 600 MG/50 ML PIGGYBACK 100 MG IV ×3 (03:27→18:03)
[2020-05-10 06:21] LABS: Hematocrit 30.8 % (42-52); Hemoglobin 9.4 g/dl (14.0-18.0); Mean Corpuscular HGB Conc 30.5 g/dl (31.0-36.0); Mean Corpuscular Hemoglobin 28.9 pg (27.0-33.0); Mean Corpuscular Volume 94.8 fL (80-98); Mean Platelet Volume 12.2 fL (9.4-12.4); Platelet Count 119 X10*3/uL (160-400); Red Blood Count 3.25 X10*6/uL (4.60-5.80); Red Cell Distribution Width 16.1 % (11.0-16.0); White Blood Count 7.5 X10*3/uL (4.8-10.8)
[2020-05-10] MEDS: Heparin Sodium,Porcine 5,000 UNIT/ML VIAL 5000 UNIT SUBCUT ×2 (06:25→18:03)
[2020-05-10 06:49] LABS: Anion Gap 12 (12-20); Carbon Dioxide 26 mmol/L (22-29); Chloride 112 mmol/L (96-108); Creatinine Clr Calc Pharmacy 34.6; Estimated Glomerular Filt Rate 31; Glucose Random 118 mg/dL (60-115); Potassium 4.3 mmol/L (3.3-5.1)
[2020-05-10 06:53] LABS: Blood Urea Nitrogen 37 mg/dL (9-16); Calcium 8.1 mg/dL (8.4-10.2); Sodium 146 mmol/L (135-145)
[2020-05-10] MEDS: 0.9 % Sodium Chloride Flush 3 ML SYRINGE IVFLUSH ×3 (08:00→23:33)
[2020-05-10] MEDS: Betamethasone Dip Aug 0.05% Cr 15 GM TUBE 1 APPL TOPICAL ×2 (10:00→20:36)
[2020-05-10] MEDS: Nystatin Powder 15 GM BOTTLE 1 APPL TOPICAL ×3 (10:00→20:36)
--- NOTE | 2020-05-10 10:22 | MHC.SLORD ---
DIRECTOR TITLE discussed with RN and briefly saw patient. Patient is not appropriate at this time for PO trials as he exhibits difficulty managing secretions. Patient would not wake with sternal rub. Patient is NPO at this time. DIRECTOR TITLE to follow up tomorrow morning. Name: Pedro Luis Lozano Date of : 1945 Age: 74 Date of Registration: 05/06/20 Speech Language Pathology Order Status:
[2020-05-10 11:47] LABS: Venous Blood Gas Refer to POC result
[2020-05-10 11:48] LABS: VBG Base Excess -3.3 mmol/L; VBG HCO3 21 mmol/L (22-26); VBG pCO2 39 mmHg; VBG pH 7.34 (7.32-7.43); VBG pO2 78 mmHg
[2020-05-10 12:21] LABS: B Type Natriuretic Peptide 53 pg/mL (<100)
--- NOTE | 2020-05-10 13:46 | PM.NEUROCN ---
History of Present Illness Data of Consult Service Date: 05/10/20 Primary Care Provider: Unknown Physician 74 years old man, obese, with significant leg edema and leg cellulitis resulting in multiple wounds who was brought to hospital with change in mental status and was noted to have multiple electrolyte abnormalities and infection that were being taken care of. This consultation was requested was change in mental status. Apparently he was alert and awake before he came to hospital. There was no sign of any obvious convulsion. Review of Systems Review of Systems: He was unable to answer questions for review of system. [facility] Past Medical History Medical History CHF (congestive heart failure) Diabetes HTN (hypertension) Hypothyroidism Family History Family history: reviewed and not pertinent Social History Social History Household Members: Spouse Housing: House Do you presently have visiting nurse or other home services: No Unable to assess alcohol history related to: Unable to respond Alcohol intake: unknown Smoking Status: Unknown if ever smoked Use of substances other than those prescribed or required for medical reasons: Unknown Currently Displaying Signs/Symptoms of Drug Intoxication Withdrawal: No Advance Directives: No Advance Directives Information Provided: No Do you have thoughts of harming others: None Do you have a plan to hurt others: No Plan Recently lost weight without trying: Unsure service: No Current occupational status: retired Meds Allergies Allergy/AdvReac Type Severity Reaction Status Date / Time No Known Allergies Allergy Unknown NONE Unverified 11/17/19 14:44 Active Medications: Current Medications Generic Name Dose Route Start Last Admin Trade Name Alek PRN Reason Stop Dose Admin Acetaminophen 650 mg 05/06/20 16:58 Acetaminophen 325 Mg Tablet PO Q6H PRN Pain, Mild (Pain Scale 1-3) Albuterol/Ipratropium 3 ml 05/06/20 17:13 Albuterol/Iprat 2.5/0.5mg 3 Ml Ampul.Neb INHALE RQ4H PRN Wheezing Betamethasone Dipropion Augmented 1 appl 05/07/20 21:00 05/10/20 10:00 Betamethasone Dip Aug 0.05% Cr 15 Gm Tube TOPICAL 1 appl BID [facility] Administration Protocol Heparin Sodium (Porcine) 5,000 unit 05/06/20 18:00 05/10/20 06:25 Heparin Sodium,Porcine 5,000 Unit/Ml Vial SUBCUT 5,000 unit Q12H [facility] Administration Dextrose 1,000 mls @ 100 mls/hr 05/07/20 09:00 05/10/20 00:11 D5w IVCONT 50 mls/hr .Q10H [facility] Administration Clindamycin Phosphate 600 mg in 50 mls @ 100 mls/hr 05/07/20 18:30 05/10/20 11:30 Cleocin IV 100 mls/hr Q8H [facility] Administration Levothyroxine Sodium 125 mcg 05/07/20 09:00 05/10/20 12:53 Levothyroxine Sodium 125 Mcg Tablet PO Not Given DAILY [facility] Metoprolol Tartrate 25 mg 05/07/20 09:00 05/10/20 12:53 Metoprolol Tartrate 25 Mg Tablet PO Not Given DAILY [facility] Protocol Nystatin 1 appl 05/07/20 09:00 05/10/20 10:00 Nystatin Powder 15 Gm Bottle TOPICAL 1 appl TID [facility] Administration Protocol Ondansetron HCl 4 mg 05/06/20 16:58 Ondansetron Hcl 4 Mg/2 Ml Vial IVPUSH Q8H PRN Nausea and Vomiting Sodium Chloride 3 ml 05/07/20 00:00 05/10/20 08:00 0.9 % Sodium Chloride Flush 3 Ml Syringe IVFLUSH 3 ml QSHIFT [facility] Administration Tamsulosin HCl 0.4 mg 05/07/20 09:00 05/10/20 12:53 Tamsulosin Hcl 0.4 Mg Capsule PO Not Given DAILY [facility] Home Medications Medication Instructions Recorded Confirmed Last Taken Type furosemide 1 tab PO TID 05/06/20 05/06/20 Unknown History levothyroxine 1 tab PO DAILY 05/06/20 05/06/20 Unknown History metoprolol tartrate 1 tab PO DAILY 05/06/20 05/06/20 Unknown History spironolactone 1 tab PO BID 05/06/20 05/06/20 Unknown History tamsulosin 1 cap PO DAILY 05/06/20 05/06/20 Unknown History Physical Exam Vital Signs: Vital Signs: Last Vital Signs Temp 98.9 F 05/10/20 12:00 Pulse 94 05/10/20 12:00 Resp 22 H 05/10/20 12:00 BP 132/60 05/10/20 12:00 Pulse Ox 92 05/10/20 12:00 Body Mass Index 40.1 He was sleeping and snoring but I was easily able to wake him up. He was still quite drowsy and followed one-step commands including squeezing my hand with command and raising left or right hand when I asked him to do so. He was keeping his eyes closed. Pupils were equal and reactive to light. There was no eye jerking or gaze deviation. Visual mireles were difficult to determine. Face seemed okay. Tongue was dry. Mouth was open. Deep tendon reflexes were absent with flexor plantars. Results Labs CBC & Chem 7: 05/10/20 05:34 05/10/20 05:34 Labs: Short CBC 05/10/20 Range/Units 05:34 WBC 7.5 (4.8-10.8) X10*3/uL Hgb 9.4 L (14.0-18.0) g/dl Hct 30.8 L (42-52) % Plt Count 119 L (160-400) X10*3/uL BMP 05/10/20 05:34 Sodium 146 H Potassium 4.3 Chloride 112 H Carbon Dioxide 26 BUN 37 H Creatinine 2.10 H Calcium 8.[address] without contrast on May 06 did not reveal any significant abnormality. Microbiology Microbiology Results: Microbiology 05/06/20 14:27 Blood - Venous Blood Culture - Preliminary No growth after 48 hours. 05/06/20 14:24 Blood - Venous Blood Culture - Preliminary No growth after 48 hours. Assessment and Plan (1) Encephalopathy: Status: Acute 74 years old man with multifactorial encephalopathy resulting from electrolyte abnormalities especially hypernatremia and pulmonary issues. He might also have sleep apnea. There is no obvious focal finding to suggest a stroke-like pathology. An EEG is usually recommended in this type of patients to rule out underlying possibility of nonconvulsive status. Recovery from metabolic abnormalities could leg a day or 2 after correction of electrolyte parameters, and also fluctuate.
--- NOTE | 2020-05-10 14:18 | P.PNIM_ITS ---
Subjective Subjective Date of Service: 05/10/20 Interval History: The patient was seen and evaluated this morning Laying in bed, sleeping, more altered today in comparison to yesterday, barely following commands But keeps falling back to sleep. No reported other overnight events. Systemic review: Not much verbal to communicate Physical Exam Vital Signs: Vital Signs: Last Vital Signs Temp 98.9 F 05/10/20 12:00 Pulse 94 05/10/20 12:00 Resp 22 H 05/10/20 12:00 BP 132/60 05/10/20 12:00 Pulse Ox 92 05/10/20 12:00 Body Mass Index 40.1 Const: Other: Constitutional : Encephalopathic, not responsive, sleeping , does not look in distress Neck : Normal inspection, Supple Cardiovascular : RRR, S1 S2, no lower extremity edema Respiratory : Good bilateral air entry, bilateral basal crackles, wheezes or rhonchi Gastrointestinal: soft, lax, Normal bowel sounds, Non tender Skin : Warm/Dry, No rash Neurological : encephalopathic, moving all extremities, open eyes to stimuli and follow simple commands, No other focal deficit Objective Data Current Medications Generic Name Dose Route Start Last Admin Trade Name Freq PRN Reason Stop Dose Admin Acetaminophen 650 mg 05/06/20 16:58 Acetaminophen 325 Mg Tablet PO Q6H PRN Pain, Mild (Pain Scale 1-3) Albuterol/Ipratropium 3 ml 05/06/20 17:13 Albuterol/Iprat 2.5/0.5mg 3 Ml Ampul.Neb INHALE RQ4H PRN Wheezing Betamethasone Dipropion Augmented 1 appl 05/07/20 21:00 05/10/20 10:00 Betamethasone Dip Aug 0.05% Cr 15 Gm Tube TOPICAL 1 appl BID [facility] Administration Protocol Heparin Sodium (Porcine) 5,000 unit 05/06/20 18:00 05/10/20 06:25 Heparin Sodium,Porcine 5,000 Unit/Ml Vial SUBCUT 5,000 unit Q12H [facility] Administration Dextrose 1,000 mls @ 100 mls/hr 05/07/20 09:00 05/10/20 00:11 D5w IVCONT 50 mls/hr .Q10H [facility] Administration Clindamycin Phosphate 600 mg in 50 mls @ 100 mls/hr 05/07/20 18:30 05/10/20 11:30 Cleocin IV 100 mls/hr Q8H [facility] Administration Levothyroxine Sodium 125 mcg 05/07/20 09:00 05/10/20 12:53 Levothyroxine Sodium 125 Mcg Tablet PO Not Given DAILY [facility] Metoprolol Tartrate 25 mg 05/07/20 09:00 05/10/20 12:53 Metoprolol Tartrate 25 Mg Tablet PO Not Given DAILY [facility] Protocol Nystatin 1 appl 05/07/20 09:00 05/10/20 10:00 Nystatin Powder 15 Gm Bottle TOPICAL 1 appl TID [facility] Administration Protocol Ondansetron HCl 4 mg 05/06/20 16:58 Ondansetron Hcl 4 Mg/2 Ml Vial IVPUSH Q8H PRN Nausea and Vomiting Sodium Chloride 3 ml 05/07/20 00:00 05/10/20 08:00 0.9 % Sodium Chloride Flush 3 Ml Syringe IVFLUSH 3 ml QSHIFT [facility] Administration Tamsulosin HCl 0.4 mg 05/07/20 09:00 05/10/20 12:53 Tamsulosin Hcl 0.4 Mg Capsule PO Not Given DAILY [facility] Labs CBC & Chem 7: 05/10/20 05:34 05/10/20 05:34 Microbiology Microbiology Results: Microbiology 05/06/20 14:27 Blood - Venous Blood Culture - Preliminary No growth after 48 hours. 05/06/20 14:24 Blood - Venous Blood Culture - Preliminary No growth after 48 hours. Assessment and Plan (1) Cellulitis: Status: Acute (2) Acute metabolic encephalopathy: Status: Acute (3) Hypernatremia: Status: Acute (4) CKD (chronic kidney disease), stage III: Status: Acute (5) Aspiration pneumonia: Status: Acute (6) Hypoxemia requiring supplemental oxygen: Status: Acute Assessment and Plan: 74 year old man with history of CHF and hypothyroidism admitted with acute encephalopathy related to dehydration and cellulitis. Acute metabolic encephalopathy more encephalopathic today Seems to be related mainly to hypernatremia and infection but cannot rule out other etiologies treat electrolyte imbalance, infection His mental baseline seems to be around normal, independent, functional at baseline Neurology input appreciated, consider EEG and treat underlying metabolic issues Bilateral lower extremity Cellulitis Not septic Bilateral venous stasis changes with inflammation Possible staph or strep,there is no purulence Continue clindamycin ID input appreciated Hypoxic respiratory failure Aspiration pneumonia CXR overnight showed infiltrateCulture negative Continue IV antibiotic Wean oxygen down as tolerated Atelectasis Repeated CXR 05/10 showing atelectasis Start chest physical therapy Hypernatremia Sodium of 146 Increase D5W to 100 Repeat BMP Nephrology following Hypothermia Resolved CHF No exacerbation. Hold Lasix and spironolactone for now due to hypernatremia. COPD Albuterol as needed. Hypothyroidism TSH 4.75, Free T4 1.19. Subclinical. Continue Levothyroxine. DVT prophylaxis Heparin
[2020-05-10] MEDS: Dextrose 5 % 1,000 ML 100 ML IVCONT (15:26)
--- NOTE | 2020-05-10 19:56 | PM.PNNEP ---
Subjective Subjective Date of Service: 05/10/20 Interval history: Seen and examined, events noted Physical Exam Vital Signs: Vital Signs: Last Vital Signs Temp 99.3 F 05/10/20 15:48 Pulse 88 05/10/20 15:48 Resp 20 05/10/20 15:48 BP 121/58 L 05/10/20 15:48 Pulse Ox 91 L 05/10/20 15:48 Body Mass Index 40.1 Const: General: cooperative Cardio: Jugular venous distension: no JVD Rate: regular rate Skin: Lesions: lesion noted and other (ulcer bekah and redness) Objective Data Labs CBC & Chem 7: 05/10/20 05:34 05/10/20 05:34 Labs: Laboratory Results - last 24 hr 05/10/20 05/10/20 05/10/20 05:34 05:34 11:30 WBC 7.5 RBC 3.25 L Hgb 9.4 L Hct 30.8 L MCV 94.8 MCH 28.9 MCHC 30.5 L RDW 16.1 H Plt Count 119 L MPV 12.2 Absolute Nucleated RBC 0.000 Nucleated RBC % (auto) 0.0 VBG pH VBG pCO2 VBG pO2 VBG HCO3 VBG O2 Saturation VBG Base Excess Sodium 146 H Potassium 4.3 Chloride 112 H Carbon Dioxide 26 Anion Gap 12 BUN 37 H Creatinine 2.10 H Estim Creat Clear Calc 34.6 Estimated GFR 31 Random Glucose 118 H Calcium 8.1 L B-Natriuretic Peptide 53 05/10/20 11:41 WBC RBC Hgb Hct MCV MCH MCHC RDW Plt Count MPV Absolute Nucleated RBC Nucleated RBC % (auto) VBG pH 7.34 VBG pCO2 39 VBG pO2 78 VBG HCO3 21 L VBG O2 Saturation 92.0 VBG Base Excess -3.3 Sodium Potassium Chloride Carbon Dioxide Anion Gap BUN Creatinine Estim Creat Clear Calc Estimated GFR Random Glucose Calcium B-Natriuretic Peptide Microbiology Microbiology Results: Microbiology 05/06/20 14:27 Blood - Venous Blood Culture - Preliminary No growth after 48 hours. 05/06/20 14:24 Blood - Venous Blood Culture - Preliminary No growth after 48 hours. Assessment & Plan Assessment and plan (1) Cellulitis: Status: Acute Assessment and Plan: 74 year old man with history of CHF and hypothyroidism admitted with acute encephalopathy related to dehydration and cellulitis and noted renal dysfunc and hyperNa 1. CKD 3b: bsl SCr 2.0; etiol unlcear but its been longstanding; UA unremarkable; suspecty age related vs HTN nephrosclerosis 2. HyperNa:SNa impoved with IVF ; still most c/w poor po intake; doubt DI given UOP is not impressive 3. cellulitis REC: encourage incr PO and may be able to d/c IVF if Sna remains 140-146; track UOP/renal func; avoid NSAIDs will follow with team Time Spent With Patient Time: Total time spent is greater than 50% in coordination of care (as documented) at patient's floor/unit and/or counseling patient:
[2020-05-10 21:07] LABS: Anion Gap 12 (12-20); Carbon Dioxide 27 mmol/L (22-29); Chloride 110 mmol/L (96-108); Potassium 4.4 mmol/L (3.3-5.1); Sodium 145 mmol/L (135-145)
--- NOTE | 2020-05-10 21:24 | MHC.PIE ---
P: PATIENT VERY HARD TO AROUSE THIS MORNING, ONLY ORIENTED TO NAME, WET MOIST COUGH, FREQUENT ORAL SUCTIONING I: NPO AND ASPIRATION PRECAUTIONS; PLACED NASAL TRUMPET WITH RT; DEEP NASOPHARYNGEAL SUCTIONING NEEDED, TITRATED OXYGEN UP TO 3 LPM FROM 2; SPO2 92-3%; DR. SHARPE NOTIFIED AND CAME TO BEDSIDE; NEUROLOGY CONSULTED, CAME TO BEDSIDE, EEG ORDERED; VBG ORDERED AND CHECKED, AND PATIENT NOT HYPERCARBIC; PH WNL. E: CONTINUING TO MONITOR. PATIENT DENIES PAIN AND DISCOMFORT WHEN ASKED, SAYS NAME, TRACKS SOME PERRLA BUT SLUGGISH; NPO; FOLLOWS COMMANDS.
[2020-05-11] VITALS (24 sets, daily range): BP systolic 70–153; BP diastolic 30–66; PULSE 54–92; RESP 14–28; TEMP 36.4–37.5; O2SAT 94–100
--- NOTE | 2020-05-11 00:30 | PC.NURSE ---
Addendum entered by Ninfa Golden RN 05/11/20 04:59: Pt desating to 80s on venti mask, nrb applied spO2 now >95%. Upon assessment pt no longer arousable to sternal rub. Unable to open eyes or follow commands. Pt continues to use abdominal muscles to breath, with audible congestion. Dr Taveras notified. Continuous fluids held per md. Cxr ordered. RT suctioned pt, noting large amounts of thick white secretions. Original Note: Pt spO2 80% on 5 L NC. Pt continues to be only arousable to sternal rub, using abdominal muscles to breath, all other vitals stable. Pt found to be mouth breathing when sleeping. RT to bedside, placed on venti mask 50%. SpO2 >95% on venti. Nasal trumpet in L nare used for suctioning. Pt requires frequent mouth care due to secretions.
[2020-05-11] MEDS: Clindamycin Phosphate/D5W 600 MG/50 ML PIGGYBACK 100 MG IV (01:54)
[2020-05-11] MEDS: Dextrose 5 % 1,000 ML 100 ML IVCONT (01:54)
[2020-05-11] MEDS: Heparin Sodium,Porcine 5,000 UNIT/ML VIAL 5000 UNIT SUBCUT (05:28)
[2020-05-11 06:51] LABS: Hematocrit 34.1 % (42-52); Hemoglobin 9.9 g/dl (14.0-18.0); Mean Corpuscular Hemoglobin 28.7 pg (27.0-33.0); Mean Corpuscular Volume 98.8 fL (80-98); NRBC Pct Auto 0.2 /100WBC (0.0-0.2); Platelet Count 166 X10*3/uL (160-400); Red Blood Count 3.45 X10*6/uL (4.60-5.80); Red Cell Distribution Width 16.3 % (11.0-16.0); White Blood Count 8.4 X10*3/uL (4.8-10.8)
[2020-05-11 06:55] LABS: INTERNATIONAL NORM RATIO 1.1 (0.9-1.1); Prothrombin Time 13.4 SEC (10.8-13.0)
[2020-05-11 07:14] LABS: Alanine Aminotransferase 85 U/L (0-40); Albumin Level 3.1 g/dL (3.5-5.0); Alkaline Phosphatase 103 U/L (39-117); Anion Gap 14 (12-20); Aspartate Amino Transferase 71 U/L (5-37); Bilirubin Direct 0.4 mg/dL (0.0-0.5); Bilirubin Total 0.5 mg/dL (0.0-1.0); Blood Urea Nitrogen 46 mg/dL (9-16); Calcium 8.3 mg/dL (8.4-10.2); Carbon Dioxide 28 mmol/L (22-29); Chloride 107 mmol/L (96-108); Creatinine Clr Calc Pharmacy 27.8; Estimated Glomerular Filt Rate 24; Glucose Random 121 mg/dL (60-115); Sodium 144 mmol/L (135-145); Total Protein 6.6 g/dL (6.5-8.0)
[2020-05-11] MEDS: Betamethasone Dip Aug 0.05% Cr 15 GM TUBE 1 APPL TOPICAL (07:18)
[2020-05-11] MEDS: 0.9 % Sodium Chloride Flush 3 ML SYRINGE IVFLUSH ×3 (07:19→21:50)
[2020-05-11] MEDS: Nystatin Powder 15 GM BOTTLE 1 APPL TOPICAL (07:19)
[2020-05-11 08:00] LABS: Lactate Dehydrogenase 316 U/L (118-273)
[2020-05-11 08:12] LABS: Glucose Urine UA NEG (NEG); Leukocyte Esterase Urine NEG (NEG); Nitrite Urine NEG (NEG); PH 5.5 (5.0-8.0); Specific Gravity - Urine >= 1.030 (1.005-1.025); Urine Blood 3+ (NEG); Urine Ketones NEG (NEG); Urine Protein 2+ MG/DL (NEG-TRACE)
[2020-05-11 08:21] LABS: Appearance Urine CLOUDY; Color Urine YELLOW
[2020-05-11 08:24] LABS: Squamous Epithelial Cell Urine 1+ /LPF; WBC Urine 0 /HPF (0-4)
[2020-05-11 08:25] LABS: Amorphous Sediment Urine 3+ /LPF; Mucus Urine 1+ /LPF
[2020-05-11 08:28] LABS: Immature Retic Fraction 18.2 % (2.3-13.4); Retic HGB Equivalent 24.4 pg (30.0-35.0); Reticulocyte Percent 1.1 % (0.5-1.8); Reticulocytes Absolute 0.038 X10*6/uL (0.026-0.095)
[2020-05-11 08:42] LABS: Band Neutrophils Percent 10 % (3-5); Eosinophils Absolute Manual 0.1 X10*3/UL (0.0-0.8); Eosinophils Percent Manual 1 % (0-4); Lymphocytes Absolute Manual 0.2 X10*3/uL (0.6-4.8); Lymphocytes Percent Manual 2 % (20-40); Monocytes Absolute Manual 0.8 X10*3/uL (0.0-1.2); Monocytes Percent Manual 9 % (2-11); Neutrophils Absolute Manual 7.4 X10*3/uL (2.2-7.9); Neutrophils Percent Manual 78 % (45-73)
[2020-05-11 08:43] LABS: Macrocytosis 1+; RBC Morphology NOTED
[2020-05-11 08:44] LABS: Basophilic Stippling 1+
[2020-05-11 08:45] LABS: Ovalocytes 1+; Platelet Estimate SLIGHTLY DECREASED (NORMAL)
[2020-05-11 08:46] LABS: Ammonia 65 umol/L (13-55)
[2020-05-11 08:47] LABS: Large Platelet PRESENT; Platelet Morphology Comment NOTED
[2020-05-11 08:48] LABS: Acanthocytes 1+
[2020-05-11 08:50] LABS: Nucleated Red Blood Cells 1 /100WBC (0-0); Schistocytes 1+
--- NOTE | 2020-05-11 08:50 | P.PCNCC_ITS ---
Procedures Intubation Intubation Comments: Patient emergently intubated on general medical lopes for acute hypercapnic respiratory failure with 7.5 cuffed ET tube under glide scope guidance with no immediate complications. ET tube position verified by chest x- ray.
--- NOTE | 2020-05-11 08:51 | PM.HEMONCCN ---
Subjective - Subjective Chief complaint: CONSULT FOR: ANEMIA. Patient: new to practice Consult date: 05/11/20 Requesting Physician: Eugene. Primary Care Provider: Unknown Physician Medical Summary: DIAGNOSIS: 1. ANEMIA. 2. THROMBOCYTOPENIA. 3. CKD. 4. QUESTION OF TTP. HPI - Consult Narrative Reason for consult: Consult for question of TTP. Narrative: Pedro Luis Lozano is a pleasant 74 year old gentleman, with history of CHF, Hypothyroidism presents with confusion. He had been doing his own wound care to both of his legs for several years. However lately, he has been quite weak and has had trouble even walking, walking up stairs. The WHIPPER BEATER came in bathe him and do wound care on his legs. She noted them to be very red and raw. She reported that up until a week ago he was able to do most of his own self-care without much difficulty. He has had cellulitis in the past and has been seen by wound care clinic. On exam, his legs were red bilaterally with multiple dry skin areasespecially the groin area was very excoriated. The patient was alert however rather confused. His reported that he has not had a poor appetite, nausea, vomiting,nor diarrhea. His chest x-ray was negative for consolidation or effusion. He was noted to be hypothermic initially. Zhang hugger placed. He was placed on 2 liters of oxygen after o2 sat went down to 89% but came right back up. Database: CBC, from 05/11: WBC 8.4, HGB 9.9, HCT 34, PLT 166. CMP: Lytes: Within normal limits, BUN 50, TELECOMMUNICATIONS LINE MECHANIC 3.1, blue 152. Siva 8.3, Alb 3.1. LFTs: 0.5/103/71/85. LDH: 316. CRP: 33.9. Review of Systems - Constitutional Reports system reviewed and no additional complaints, except as documented, Reports daytime sleepiness, Reports lack of energy, Reports malaise, Reports stops breathing during sleep, Reports weight loss - Eyes Reports system reviewed and no additional complaints, except as documented - ENT Reports system reviewed and no additional complaints, except as documented - Cardiovascular Reports system reviewed and no additional complaints, except as documented - Respiratory Reports no additional respiratory complaints - Gastrointestinal Reports system reviewed and no additional complaints, except as documented - Genitourinary Genitourinary: Reports no additional male genitourinary complaints - Musculoskeletal Reports system reviewed and no additional complaints, except as documented - Integumentary/Breasts Skin/Breast: Reports no additional skin complaints - Neurologic Reports system reviewed and no additional complaints, except as documented - Psychiatric Reports system reviewed and no additional complaints, except as documented - Endocrine Reports no additional endocrine complaints - Hematologic/Lymphatic Reports system reviewed and no additional complaints, except as documented - Allergic/Immunologic Reports system reviewed and no additional complaints, except as documented PMFSH Medical History: Medical History (Last Reviewed 05/07/20 @ 16:44 by Marissa Castellanos MD) CHF (congestive heart failure) Diabetes HTN (hypertension) Hypothyroidism Functional capacity: uses cane/walker Patient : No Family history: reviewed and not pertinent Social History: Social History (Last Reviewed 05/07/20 @ 16:44 by Marissa Castellanos MD) Living Situation History: Household Members: Spouse Housing: House Do you presently have visiting nurse or other home services: No Alcohol History: Unable to assess alcohol history related to: Unable to respond Alcohol intake: unknown Tobacco History: Smoking Status: Unknown if ever smoked Substance Use History: Use of substances other than those prescribed or required for medical reasons: Unknown Currently Displaying Signs/Symptoms of Drug Intoxication Withdrawal: No Advance Directives: Advance Directives: No Advance Directives Information Provided: No Homicidal Assessment: Do you have thoughts of harming others: None Do you have a plan to hurt others: No Plan Nutrition Assessment: Recently lost weight without trying: Unsure Nutrition Risks: Difficulty chewing Nutrition Risks: Difficulty swallowing Patient : No Occupation Assessmet: service: No Current occupational status: retired Smoking status: Unknown if ever smoked Home Medications and Allergies Current Medications: Current Medications Generic Name Dose Route Start Last Admin Trade Name Freq PRN Reason Stop Dose Admin Acetaminophen 650 mg 05/06/20 16:58 Acetaminophen 325 Mg Tablet PO Q6H PRN Pain, Mild (Pain Scale 1-3) Albuterol/Ipratropium 3 ml 05/06/20 17:13 Albuterol/Iprat 2.5/0.5mg 3 Ml Ampul.Neb INHALE RQ4H PRN Wheezing Betamethasone Dipropion Augmented 1 appl 05/07/20 21:00 05/11/20 07:18 Betamethasone Dip Aug 0.05% Cr 15 Gm Tube TOPICAL 1 appl BID [facility] Administration Protocol Heparin Sodium (Porcine) 5,000 unit 05/06/20 18:00 05/11/20 05:28 Heparin Sodium,Porcine 5,000 Unit/Ml Vial SUBCUT 5,000 unit Q12H [facility] Administration Dextrose 1,000 mls @ 100 mls/hr 05/07/20 09:00 05/11/20 04:55 D5w IVCONT 0 mls/hr .Q10H [facility] Infusion Clindamycin Phosphate 600 mg in 50 mls @ 100 mls/hr 05/07/20 18:30 05/11/20 02:33 Cleocin IV Infused Q8H [facility] Infusion Levothyroxine Sodium 125 mcg 05/07/20 09:00 05/11/20 07:19 Levothyroxine Sodium 125 Mcg Tablet PO Not Given DAILY [facility] Metoprolol Tartrate 25 mg 05/07/20 09:00 05/11/20 07:19 Metoprolol Tartrate 25 Mg Tablet PO Not Given DAILY [facility] Protocol Nystatin 1 appl 05/07/20 09:00 05/11/20 07:19 Nystatin Powder 15 Gm Bottle TOPICAL 1 appl TID [facility] Administration Protocol Ondansetron HCl 4 mg 05/06/20 16:58 Ondansetron Hcl 4 Mg/2 Ml Vial IVPUSH Q8H PRN Nausea and Vomiting Sodium Chloride 3 ml 05/07/20 00:00 05/11/20 07:19 0.9 % Sodium Chloride Flush 3 Ml Syringe IVFLUSH 3 ml QSHIFT [facility] Administration Tamsulosin HCl 0.4 mg 05/07/20 09:00 05/11/20 07:19 Tamsulosin Hcl 0.4 Mg Capsule PO Not Given DAILY [facility] Home Medications Medication Instructions Recorded Confirmed Type furosemide 1 tab PO TID 05/06/20 05/06/20 History levothyroxine 1 tab PO DAILY 05/06/20 05/06/20 History metoprolol tartrate 1 tab PO DAILY 05/06/20 05/06/20 History spironolactone 1 tab PO BID 05/06/20 05/06/20 History tamsulosin 1 cap PO DAILY 05/06/20 05/06/20 History Allergies Allergy/AdvReac Type Severity Reaction Status Date / Time No Known Allergies Allergy Unknown NONE Unverified 11/17/19 14:44 Physical Exam Vital signs: Vital Signs Temp 97.6 F 05/11/20 07:48 Pulse 88 05/11/20 07:48 Resp 22 H 05/11/20 07:48 BP 125/58 L 05/11/20 07:48 Pulse Ox 99 05/11/20 07:48 Intake & Output 05/10/20 05/11/20 05/11/20 18:59 06:59 18:59 Intake Total 1050.0 / 2451.667 1401.667 / 2451.667 Output Total 275 / 515 240 / 515 Balance 775.0 / 7833.837 5126.667 / 1936.667 Urine Output (Average ml/kg/hr) 0.21 0.18 Intake: Intake, IV Amount 1050.0 / 2451.667 1401.667 / 2451.667 Clindamycin Phosphate/D5W 600 50 / 150 100 / 150 mg In 50 ml @ 100 mls/hr IV Q8H [facility] Rx#:[id number] Dextrose 5 % 1,000 ml @ 100 mls 1000.0 / 2301.667 1301.667 / 2301.667 /hr IVCONT .Q10H [facility] Rx#: [id number] Output: Output, Urine Amount 100 / 100 Output, Urine Amount (Catheter) 175 / 415 240 / 415 Urethral 175 / 415 240 / 415 Other: Urine Color Yellow Concentrated Stool Incontinent Stool Amount Large Stool Color Brown Stool Consistency Formed Weight 109.5 kg - Constitutional Present: no acute distress, mild distress - Routine HEENT Exam Head: Present: normal inspection ENT: Present: mucous membranes moist - Routine Respiratory Exam Present: decreased breath sounds, CTAB - Routine Cardiovascular Exam Cardiovascular: Present: RRR, S1, S2 - Routine Abdominal Exam Present: nontender - Routine Skin Exam Present: intact - Routine Neurological Exam Present: alert, altered mental status Hem/Onc Consult Result - Labs CBC & Chem 7: 05/12/20 04:59 05/12/20 04:59 Labs: Short CBC 05/11/20 Range/Units 05:31 WBC 8.4 (4.8-10.8) X10*3/uL Hgb 9.9 L (14.0-18.0) g/dl Hct 34.1 L (42-52) % Plt Count 166 D (160-400) X10*3/uL BMP 05/10/20 05/11/20 20:25 05:31 Sodium 145 144 Potassium 4.4 5.0 Chloride 110 H 107 Carbon Dioxide 27 28 BUN 46 H Creatinine 2.62 H Calcium 8.3 L Liver Function 05/11/20 Range/Units 05:31 Total Bilirubin 0.5 (0.0-1.0) mg/dL Direct Bilirubin 0.4 (0.0-0.5) mg/dL AST 71 H (5-37) U/L ALT 85 H (0-40) U/L Alkaline Phosphatase 103 D (39-117) U/L Albumin 3.1 L (3.5-5.0) g/dL Urine 05/11/20 Range/Units 08:00 Urine Color YELLOW Urine Appearance CLOUDY Urine pH 5.5 (5.0-8.0) Ur Specific [place] >= 1.030 H (1.005-1.025) Urine Protein 2+ H (NEG-TRACE) MG/DL Urine Glucose (UA) NEG (NEG) MG/DL Assessment and Plan (1) Anemia Status: Acute This is a pleasant 74-year-old gentleman admitted with mental status changes, and extensive lower extremity cellulitis. He was noted to be hyponatremic on presentation. This is likely related to poor p.o. intake and dehydration. Apparently he has chronic CKD. Creatinine was 2 back in 2018. He is anemic. This is most likely multifactorial: 1. Anemia of acute infection related to his cellulitis. 2. ACD: Related to chronic kidney disease. 3. No evidence for hemolytic anemia. 4. Myelo infiltrative disorder: Doubt. He was transiently thrombocytopenic however his platelets are normal today. This was also likely related to infection, the cellulitis. DIFFERENTIAL DIAGNOSIS: 3. DIC: Could be infection related: PT 13.4, INR 1.1, PTT 43.2. PT is mildly prolonged. Will check PTT and fibrinogen. 4. TTP: Question is raised if he has TTP given his mental status changes, elevated creatinine, anemia and thrombocytopenia. He is exhibiting some of the features of the PENTAD, however there are other explanations for it. His platelets have actually normalized. PLAN: Will request path review of his peripheral smear. Discussed with pathology. No evidence of fragments/schistocytes. No DIC/TTP. Will check his hemolytic screen: LDH 316. Genny test is negative. Will check fibrinogen and PTT, to rule out DIC. PTT: 43.2. Fibrinogen: More than 700. D-dimer: 382. Continue current management. Will continue to monitor his blood count carefully. Thank you, CC: Dr. Serrato.
[2020-05-11 08:55] LABS: Creatinine Urine 205.21 mg/dL
[2020-05-11 09:11] LABS: ABG Base Excess -4.2 mmol/L; ABG HCO3 30 mmol/L (22-26); ABG pCO2 133 mmHg (32-45); ABG pCO2 TC 130 mmHg (32-45); ABG pH 6.96 (7.35-7.45); ABG pH TC 6.96 (7.35-7.45); ABG pO2 238 mmHg (83-108); ABG pO2 TC 235 (83-108)
[2020-05-11 09:14] LABS: ABG Refer to POC result
[2020-05-11 09:21] LABS: C Reactive Protein 33.92 mg/dL (< or = 0.50)
[2020-05-11 09:23] LABS: Erythrocyte Sedimentation Rate 102 MM/HR (0-15)
[2020-05-11 09:27] LABS: Partial Thromboplastin Time 43.2 SEC (24.1-38.0)
[2020-05-11 09:29] LABS: Fibrinogen > 700 MG/DL (259-690)
--- NOTE | 2020-05-11 09:30 | W.PM.CCHP ---
Procedures Bronchoscopy Consent for Procedure: Emergent-no informed consent obtained Indication: pulmonary toilet Procedure: Emergent bedside bronchoscopy performed for refractory hypoxemia with heavy tracheal secretion burden unable to clear out by in-line suction. Disposable bronchoscope advanced through tracheobronchial tree via ET tube with visualization and clearance of bilateral copious thick mucoid secretions with normal endobronchial mucosa beneath. Patient tolerated procedure well. No immediate complications noted.
[2020-05-11] MEDS: Phenylephrine HCL 1,000 MCG/10 ML SYRINGE 1000 MCG IVPUSH (09:43)
[2020-05-11] MEDS: Sodium Bicarbonate 8.4% 50 MEQ/50 ML VIAL IVPUSH (09:49)
--- NOTE | 2020-05-11 09:50 | PC.NURSE ---
patient obtunded with agonal breathing since first viewing him at 0715, unresponsive even to sternal rub, on 100% NRB at start of the shift, vss, informed md to see patient shirlene due to seemingly deteriorating condition, md saw patient, additional tests ordered, about 0915 general utility machine operator in to see patient and did bedside intubation, report called to supervisor agricultural education, patient transferred to icu
--- NOTE | 2020-05-11 10:00 | W.PM.CCHP ---
Procedures Central Line Placement Right IJ: Consent for Procedure: Elective - informed consent obtained Time out performed: Yes Sterile Technique Used: Yes MD prep: mask, gown and gloves Central line prep: Chlorhexidine scrub Ultrasound used for placement: Yes Central line lumen inserted: triple Post procedure: sutured in place, good blood return, all ports aspirated, flushed, capped and sterile dressing applied Post procedure x-ray: tip of catheter in good position Patient tolerated procedure: well and no complications
--- NOTE | 2020-05-11 10:12 | MHC.SLORD ---
Per review of airline customer service agent, patient required deep nasopharyngeal suctioning and displayed declining respiratory status. RN reported this morning that patient transferred to ICU to be intubated. Please re-refer when patient is appropriate for bedside dysphagia evaluation. Name: Pedro Luis Lozano Date of : 1945 Age: 74 Date of Registration: 05/06/20 Speech Language Pathology Order Status:
--- NOTE | 2020-05-11 10:30 | HO.PM.IMPN ---
Subjective Subjective Date of Service: 05/11/20 Interval History: The patient was seen and evaluated this morning Very obtunded, lethargic, shallow breathing this morning Placed on non-rebreather mask overnight for episode of hypoxia No reported other overnight events. Systemic review: Not much verbal to communicate Physical Exam Vital Signs: Vital Signs: Last Vital Signs Temp 97.6 F 05/11/20 07:48 Pulse 88 05/11/20 07:48 Resp 22 H 05/11/20 07:48 BP 125/58 L 05/11/20 07:48 Pulse Ox 99 05/11/20 07:48 Body Mass Index 40.1 Const: Other: Constitutional : Obtunded, not responsive, sleeping , shows a breathing Neck : Normal inspection, Supple Cardiovascular : RRR, S1 S2, no lower extremity edema Respiratory : Decrease a forced and bilateral air entry, bilateral basal crackles, wheezes or rhonchi Gastrointestinal: soft, lax, Normal bowel sounds, Non tender Skin : Warm/Dry, No rash Neurological : Obtunded, moving all extremities, open eyes to stimuli and follow simple commands, No other focal deficit Objective Data Current Medications Generic Name Dose Route Start Last Admin Trade Name Freq PRN Reason Stop Dose Admin Acetaminophen 650 mg 05/06/20 16:58 Acetaminophen 325 Mg Tablet PO Q6H PRN Pain, Mild (Pain Scale 1-3) Albuterol/Ipratropium 3 ml 05/06/20 17:13 Albuterol/Iprat 2.5/0.5mg 3 Ml Ampul.Neb INHALE RQ4H PRN Wheezing Betamethasone Dipropion Augmented 1 appl 05/07/20 21:00 05/11/20 07:18 Betamethasone Dip Aug 0.05% Cr 15 Gm Tube TOPICAL 1 appl BID [facility] Administration Protocol Heparin Sodium (Porcine) 5,000 unit 05/06/20 18:00 05/11/20 05:28 Heparin Sodium,Porcine 5,000 Unit/Ml Vial SUBCUT 5,000 unit Q12H [facility] Administration Clindamycin Phosphate 600 mg in 50 mls @ 100 mls/hr 05/07/20 18:30 05/11/20 02:33 Cleocin IV Infused Q8H [facility] Infusion Levothyroxine Sodium 125 mcg 05/07/20 09:00 05/11/20 07:19 Levothyroxine Sodium 125 Mcg Tablet PO Not Given DAILY [facility] Metoprolol Tartrate 25 mg 05/07/20 09:00 05/11/20 07:19 Metoprolol Tartrate 25 Mg Tablet PO Not Given DAILY [facility] Protocol Nystatin 1 appl 05/07/20 09:00 05/11/20 07:19 Nystatin Powder 15 Gm Bottle TOPICAL 1 appl TID [facility] Administration Protocol Ondansetron HCl 4 mg 05/06/20 16:58 Ondansetron Hcl 4 Mg/2 Ml Vial IVPUSH Q8H PRN Nausea and Vomiting Sodium Chloride 3 ml 05/07/20 00:00 05/11/20 07:19 0.9 % Sodium Chloride Flush 3 Ml Syringe IVFLUSH 3 ml QSHIFT [facility] Administration Tamsulosin HCl 0.4 mg 05/07/20 09:00 05/11/20 07:19 Tamsulosin Hcl 0.4 Mg Capsule PO Not Given DAILY [facility] Labs CBC & Chem 7: 05/11/20 05:31 05/11/20 05:31 Microbiology Microbiology Results: Microbiology 05/06/20 14:27 Blood - Venous Blood Culture - Preliminary No growth after 48 hours. 05/06/20 14:24 Blood - Venous Blood Culture - Preliminary No growth after 48 hours. Assessment and Plan (1) Anemia: Status: Acute (2) Encephalopathy: Status: Acute (3) Hypoxemia requiring supplemental oxygen: Status: Acute (4) Acute metabolic encephalopathy: Status: Acute (5) Aspiration pneumonia: Status: Acute (6) Cellulitis: Status: Acute (7) CKD (chronic kidney disease), stage III: Status: Acute (8) Hypernatremia: Status: Acute (9) Acute respiratory failure with hypercapnia: Status: Acute Assessment and Plan: 74 year old man with history of CHF and hypothyroidism admitted with acute encephalopathy related to dehydration and cellulitis. Acute hypercapnic respiratory failure Placed on non-rebreather overnight Depressed breathing center ABG showed pH of 6.9 pCO2 130 Intubated urgently and sent to ICU Acute metabolic encephalopathy more encephalopathic today treat electrolyte imbalance, infection with no improvement in mental status His baseline mental status seems to be around normal, independent, functional Neurology input appreciated, consider EEG and LP EEG, LP, OTTER TRAWLER [employer] studies, TTP evaluation all ordered and pending Bilateral lower extremity Cellulitis Not septic Bilateral venous stasis changes with inflammation Possible staph or strep,there is no purulence Continue clindamycin ID input appreciated Hypoxic respiratory failure Aspiration pneumonia CXR overnight showed infiltrate Culture negative Continue IV antibiotic Wean oxygen down as tolerated Atelectasis Repeated CXR 05/10 showing worsening atelectasis chest physical therapy Hypernatremia Sodium of 144 D5W to 100 Repeat BMP Nephrology following Hypothermia Resolved CHF No exacerbation. Hold Lasix and spironolactone for now due to hypernatremia. COPD Albuterol as needed. Hypothyroidism TSH 4.75, Free T4 1.19. Subclinical. Continue Levothyroxine. DVT prophylaxis Heparin
[2020-05-11] MEDS: propofoL 1,000 MG/100 ML VIAL 6.57 MG IVCONT (10:44)
--- NOTE | 2020-05-11 10:48 | W.MHC.ACPN ---
Advanced Care Planning Note Advanced Care Planning Note Discussed with: family member(s) and surrogate Time spent (in minutes): 22 Narrative: I had a chance to meet with the patient and called his son LAMBERT Wells over the phone to discuss ongoing medical problems and plan with going over advance care directive and goals of care. The patient was admitted to the hospital for altered mental status for unclear etiology. Treated mainly for electrolyte imbalance infection with no improvement in mental status. The condition continue to deteriorate in the patient is more obtunded this morning. The was in the room when this happened and we discussed our goals of care at this point. The mention that the patient did not want to be resuscitated but she would like to give him a chance if intubation is needed until the workup is done. I discussed with his HCP who confirm with his mother said as he does not want to seek any comfort measures at this deficit unless there is no hope of recovery. He agreed on keeping the patient DNR with option of intubation for respiratory distress. The patient was intubated after this discussion for hypercapnic respiratory failure admitted to ICU. Problems Discussed (1) Anemia: (2) Encephalopathy: (3) Hypoxemia requiring supplemental oxygen: (4) Acute metabolic encephalopathy: (5) Aspiration pneumonia: (6) Cellulitis: (7) CKD (chronic kidney disease), stage III: (8) Hypernatremia: (9) Acute respiratory failure with hypercapnia:
[2020-05-11 12:58] LABS: Venous Blood Gas Refer to POC result
[2020-05-11 12:59] LABS: VBG Base Excess -5.8 mmol/L; VBG HCO3 20 mmol/L (22-26); VBG pCO2 43 mmHg; VBG pH 7.27 (7.32-7.43); VBG pO2 54 mmHg
[2020-05-11 13:08] LABS: Basophils Percent Auto 0.2 % (0-2); Eosinophils Percent Auto 0.1 % (0-4); Hematocrit 31.8 % (42-52); Hemoglobin 9.3 g/dl (14.0-18.0); Imm Gran Abs Auto 0.13 X10*3/uL (0.00-0.03); Imm Gran Pct Auto 1.2 % (0.0-0.4); Lymphocytes Absolute Auto 0.4 X10*3/uL (1.2-4.9); Lymphocytes Percent Auto 3.7 % (20-40); MANUAL DIFF FLAG SCAN; Mean Corpuscular HGB Conc 29.2 g/dl (31.0-36.0); Mean Corpuscular Hemoglobin 28.4 pg (27.0-33.0); Mean Corpuscular Volume 97.2 fL (80-98); Mean Platelet Volume 11.7 fL (9.4-12.4); Monocytes Absolute Auto 1.1 X10*3/uL (0.1-1.2); Monocytes Percent Auto 10.3 % (2-11); NRBC Pct Auto 0.3 /100WBC (0.0-0.2); Neutrophils Absolute Auto 8.9 X10*3/uL (2.0-8.3); Neutrophils Percent Auto 84.5 % (45-73); Platelet Count 176 X10*3/uL (160-400); Red Blood Count 3.27 X10*6/uL (4.60-5.80); SCAN SMEAR FLAG 1; White Blood Count 10.6 X10*3/uL (4.8-10.8)
[2020-05-11 13:17] LABS: Anion Gap 20 (12-20); Blood Urea Nitrogen 50 mg/dL (9-16); Calcium 8.4 mg/dL (8.4-10.2); Carbon Dioxide 24 mmol/L (22-29); Chloride 106 mmol/L (96-108); Creatinine Clr Calc Pharmacy 23.4; Estimated Glomerular Filt Rate 20; Glucose Random 152 mg/dL (60-115); Sodium 145 mmol/L (135-145)
[2020-05-11] MEDS: Ampicillin Sodium/Sulbactam Na 3 GM in 0.9 % Sodium Chloride 100 ML IV (13:19)
[2020-05-11] MEDS: Albumin Human 25 % 100 ML IV ×2 (13:20→17:12)
[2020-05-11] MEDS: Furosemide 500 MG in Container,Empty 0 ML IVCONT (13:22)
--- NOTE | 2020-05-11 13:27 | MHC.CM.PN ---
Pt presented to ICU for intubation after respiratory crisis event: Original d/c plan was for a return to home with new [facility]NA referral and family support: CM to follow for changes in d/c plan. Pt will need to extubate and participate in PT eval for best determination.
[2020-05-11] MEDS: propofoL 1,000 MG/100 ML VIAL 32.85 MG IVCONT ×4 (13:58→21:49)
[2020-05-11 14:14] LABS: SLIDE REVIEW VERIFIED
--- NOTE | 2020-05-11 14:44 | P.PNID_ITS ---
Subjective Subjective Date of Service: 05/11/20 Interval History: he has decompensated overnight with hypercapneic respiratory failure and is now intubated I had initially seen him for mild cellulitic appearance to legs He now has respiratory failure and is admitted to ICU There is only a minimal right lung infiltrate Objective Data Labs CBC & Chem 7: 05/11/20 12:42 05/11/20 12:42 Labs: Laboratory Results - last 24 hr 05/10/20 05/11/20 05/11/20 20:25 05:31 05:31 WBC 8.4 RBC 3.45 L Hgb 9.9 L Hct 34.1 L MCV 98.8 H MCH 28.7 MCHC 29.0 L RDW 16.3 H Plt Count 166 D MPV 12.0 Immature Gran % (Auto) Neut % (Auto) Lymph % (Auto) [place] % (Auto) Eos % (Auto) Baso % (Auto) Lymph # (Auto) [place] # (Auto) Eos # (Auto) Baso # (Auto) Abs Immat Gran (auto) Absolute Neuts (auto) Absolute Nucleated RBC 0.020 H Nucleated RBC % (auto) 0.2 Neutrophils % (Manual) 78 H Band Neutrophils % 10 H Lymphocytes % (Manual) 2 L Monocytes % (Manual) 9 Eosinophils % (Manual) 1 Abs Neuts (Manual) 7.4 Lymphocytes # (Manual) 0.2 L Monocytes # (Manual) 0.8 Eosinophils # (Manual) 0.1 Nucleated RBCs 1 H Platelet Estimate SLIGHTLY DECREASED Large Platelets PRESENT Plt Morphology Comment NOTED RBC Morphology NOTED Basophilic Stippling 1+ Macrocytosis 1+ Ovalocytes 1+ Acanthocytes (Spur) 1+ Schistocytes 1+ Smear Tech's Comments Smear Path Review SEE NOTE ESR Absolute Retic Percent Retic Immature Retic Fraction Retic Hgb Equivalent PT 13.4 H INR 1.1 APTT 43.2 H Fibrinogen > 700 H O2 Saturation ABG pH at Pt Temp ABG pH (Temp Correct) ABG pCO2 at Pt Temp ABG pCO2 (Temp Corrct ABG pO2 at Pt Temp ABG pO2 (Temp Correct ABG HCO3 ABG Base Excess (Actual) VBG pH VBG pCO2 VBG pO2 VBG HCO3 VBG O2 Saturation VBG Base Excess Sodium 145 Potassium 4.4 Chloride 110 H Carbon Dioxide 27 Anion Gap 12 BUN Creatinine Estim Creat Clear Calc Estimated GFR Random Glucose Calcium Total Bilirubin Direct Bilirubin AST ALT Alkaline Phosphatase Ammonia Lactate Dehydrogenase Troponin I High Sens C-Reactive Protein Total Protein Albumin Urine Color Urine Appearance Urine pH Ur Specific [place] Urine Protein Urine Glucose (UA) Urine Ketones Urine Blood Urine Nitrite Ur Leukocyte Esterase Urine RBC Urine WBC Ur Squamous Epith Cells Amorphous Sediment Urine Bacteria Granular Casts Urine Mucus Ur Random Sodium Urine Creatinine Direct Antiglob Test BLANCA, Polyspecific 05/11/20 05/11/20 05/11/20 05:31 05:31 08:00 WBC RBC Hgb Hct MCV MCH MCHC RDW Plt Count MPV Immature Gran % (Auto) Neut % (Auto) Lymph % (Auto) [place] % (Auto) Eos % (Auto) Baso % (Auto) Lymph # (Auto) [place] # (Auto) Eos # (Auto) Baso # (Auto) Abs Immat Gran (auto) Absolute Neuts (auto) Absolute Nucleated RBC Nucleated RBC % (auto) Neutrophils % (Manual) Band Neutrophils % Lymphocytes % (Manual) Monocytes % (Manual) Eosinophils % (Manual) Abs Neuts (Manual) Lymphocytes # (Manual) Monocytes # (Manual) Eosinophils # (Manual) Nucleated RBCs Platelet Estimate Large Platelets Plt Morphology Comment RBC Morphology Basophilic Stippling Macrocytosis Ovalocytes Acanthocytes (Spur) Schistocytes Smear Tech's Comments Smear Path Review ESR 102 H Absolute Retic Percent Retic Immature Retic Fraction Retic Hgb Equivalent PT INR APTT Fibrinogen O2 Saturation ABG pH at Pt Temp ABG pH (Temp Correct) ABG pCO2 at Pt Temp ABG pCO2 (Temp Corrct ABG pO2 at Pt Temp ABG pO2 (Temp Correct ABG HCO3 ABG Base Excess (Actual) VBG pH VBG pCO2 VBG pO2 VBG HCO3 VBG O2 Saturation VBG Base Excess Sodium 144 Potassium 5.0 Chloride 107 Carbon Dioxide 28 Anion Gap 14 BUN 46 H Creatinine 2.62 H Estim Creat Clear Calc 27.8 Estimated GFR 24 Random Glucose 121 H Calcium 8.3 L Total Bilirubin 0.5 Direct Bilirubin 0.4 AST 71 H ALT 85 H Alkaline Phosphatase 103 D Ammonia Lactate Dehydrogenase 316 H Troponin I High Sens C-Reactive Protein Total Protein 6.6 Albumin 3.1 L Urine Color Urine Appearance Urine pH Ur Specific [place] Urine Protein Urine Glucose (UA) Urine Ketones Urine Blood Urine Nitrite Ur Leukocyte Esterase Urine RBC Urine WBC Ur Squamous Epith Cells Amorphous Sediment Urine Bacteria Granular Casts Urine Mucus Ur Random Sodium Urine Creatinine Direct Antiglob Test TNP BLANCA, Polyspecific NEGATIVE 05/11/20 05/11/20 05/11/20 08:00 08:00 08:00 WBC RBC Hgb Hct MCV MCH MCHC RDW Plt Count MPV Immature Gran % (Auto) Neut % (Auto) Lymph % (Auto) [place] % (Auto) Eos % (Auto) Baso % (Auto) Lymph # (Auto) [place] # (Auto) Eos # (Auto) Baso # (Auto) Abs Immat Gran (auto) Absolute Neuts (auto) Absolute Nucleated RBC Nucleated RBC % (auto) Neutrophils % (Manual) Band Neutrophils % Lymphocytes % (Manual) Monocytes % (Manual) Eosinophils % (Manual) Abs Neuts (Manual) Lymphocytes # (Manual) Monocytes # (Manual) Eosinophils # (Manual) Nucleated RBCs Platelet Estimate Large Platelets Plt Morphology Comment RBC Morphology Basophilic Stippling Macrocytosis Ovalocytes Acanthocytes (Spur) Schistocytes Smear Tech's Comments Smear Path Review ESR Absolute Retic 0.038 Percent Retic 1.1 Immature Retic Fraction 18.2 H Retic Hgb Equivalent 24.4 L PT INR APTT Fibrinogen O2 Saturation ABG pH at Pt Temp ABG pH (Temp Correct) ABG pCO2 at Pt Temp ABG pCO2 (Temp Corrct ABG pO2 at Pt Temp ABG pO2 (Temp Correct ABG HCO3 ABG Base Excess (Actual) VBG pH VBG pCO2 VBG pO2 VBG HCO3 VBG O2 Saturation VBG Base Excess Sodium Potassium Chloride Carbon Dioxide Anion Gap BUN Creatinine Estim Creat Clear Calc Estimated GFR Random Glucose Calcium Total Bilirubin Direct Bilirubin AST ALT Alkaline Phosphatase Ammonia 65 H Lactate Dehydrogenase Troponin I High Sens C-Reactive Protein 33.92 H Total Protein Albumin Urine Color Urine Appearance Urine pH Ur Specific [place] Urine Protein Urine Glucose (UA) Urine Ketones Urine Blood Urine Nitrite Ur Leukocyte Esterase Urine RBC Urine WBC Ur Squamous Epith Cells Amorphous Sediment Urine Bacteria Granular Casts Urine Mucus Ur Random Sodium Urine Creatinine Direct Antiglob Test BLANCA, Polyspecific 05/11/20 05/11/20 05/11/20 08:00 08:00 08:00 WBC RBC Hgb Hct MCV MCH MCHC RDW Plt Count MPV Immature Gran % (Auto) Neut % (Auto) Lymph % (Auto) [place] % (Auto) Eos % (Auto) Baso % (Auto) Lymph # (Auto) [place] # (Auto) Eos # (Auto) Baso # (Auto) Abs Immat Gran (auto) Absolute Neuts (auto) Absolute Nucleated RBC Nucleated RBC % (auto) Neutrophils % (Manual) Band Neutrophils % Lymphocytes % (Manual) Monocytes % (Manual) Eosinophils % (Manual) Abs Neuts (Manual) Lymphocytes # (Manual) Monocytes # (Manual) Eosinophils # (Manual) Nucleated RBCs Platelet Estimate Large Platelets Plt Morphology Comment RBC Morphology Basophilic Stippling Macrocytosis Ovalocytes Acanthocytes (Spur) Schistocytes Smear Tech's Comments Smear Path Review ESR Absolute Retic Percent Retic Immature Retic Fraction Retic Hgb Equivalent PT INR APTT Fibrinogen O2 Saturation ABG pH at Pt Temp ABG pH (Temp Correct) ABG pCO2 at Pt Temp ABG pCO2 (Temp Corrct ABG pO2 at Pt Temp ABG pO2 (Temp Correct ABG HCO3 ABG Base Excess (Actual) VBG pH VBG pCO2 VBG pO2 VBG HCO3 VBG O2 Saturation VBG Base Excess Sodium Potassium Chloride Carbon Dioxide Anion Gap BUN Creatinine Estim Creat Clear Calc Estimated GFR Random Glucose Calcium Total Bilirubin Direct Bilirubin AST ALT Alkaline Phosphatase Ammonia Lactate Dehydrogenase Troponin I High Sens C-Reactive Protein Total Protein Albumin Urine Color YELLOW Urine Appearance CLOUDY Urine pH 5.5 Ur Specific [place] >= 1.030 H Urine Protein 2+ H Urine Glucose (UA) NEG Urine Ketones NEG Urine Blood 3+ H Urine Nitrite NEG Ur Leukocyte Esterase NEG Urine RBC 15-29 H Urine WBC 0 Ur Squamous Epith Cells 1+ Amorphous Sediment 3+ Urine Bacteria NONE Granular Casts 1-4 Urine Mucus 1+ Ur Random Sodium 21.0 Urine Creatinine 205.21 Direct Antiglob Test BLANCA, Polyspecific 05/11/20 05/11/20 05/11/20 08:58 12:42 12:42 WBC 10.6 RBC 3.27 L Hgb 9.3 L Hct 31.8 L MCV 97.2 MCH 28.4 MCHC 29.2 L RDW 16.0 Plt Count 176 MPV 11.7 Immature Gran % (Auto) 1.2 H Neut % (Auto) 84.5 H Lymph % (Auto) 3.7 L [place] % (Auto) 10.3 Eos % (Auto) 0.1 Baso % (Auto) 0.2 Lymph # (Auto) 0.4 L [place] # (Auto) 1.1 Eos # (Auto) 0.0 Baso # (Auto) 0.0 Abs Immat Gran (auto) 0.13 H Absolute Neuts (auto) 8.9 H Absolute Nucleated RBC 0.030 H Nucleated RBC % (auto) 0.3 H Neutrophils % (Manual) Band Neutrophils % Lymphocytes % (Manual) Monocytes % (Manual) Eosinophils % (Manual) Abs Neuts (Manual) Lymphocytes # (Manual) Monocytes # (Manual) Eosinophils # (Manual) Nucleated RBCs Platelet Estimate Large Platelets Plt Morphology Comment RBC Morphology Basophilic Stippling Macrocytosis Ovalocytes Acanthocytes (Spur) Schistocytes Smear Tech's Comments VERIFIED Smear Path Review ESR Absolute Retic Percent Retic Immature Retic Fraction Retic Hgb Equivalent PT INR APTT Fibrinogen O2 Saturation 96.0 ABG pH at Pt Temp 6.96 L* ABG pH (Temp Correct) 6.96 L* ABG pCO2 at Pt Temp 133 H* ABG pCO2 (Temp Corrct 130 H* ABG pO2 at Pt Temp 238 H ABG pO2 (Temp Correct 235 H ABG HCO3 30 H ABG Base Excess (Actual) -4.2 VBG pH VBG pCO2 VBG pO2 VBG HCO3 VBG O2 Saturation VBG Base Excess Sodium 145 Potassium 5.0 Chloride 106 Carbon Dioxide 24 Anion Gap 20 BUN 50 H Creatinine 3.11 H Estim Creat Clear Calc 23.4 Estimated GFR 20 Random Glucose 152 H Calcium 8.4 Total Bilirubin Direct Bilirubin AST ALT Alkaline Phosphatase Ammonia Lactate Dehydrogenase Troponin I High Sens C-Reactive Protein Total Protein Albumin Urine Color Urine Appearance Urine pH Ur Specific [place] Urine Protein Urine Glucose (UA) Urine Ketones Urine Blood Urine Nitrite Ur Leukocyte Esterase Urine RBC Urine WBC Ur Squamous Epith Cells Amorphous Sediment Urine Bacteria Granular Casts Urine Mucus Ur Random Sodium Urine Creatinine Direct Antiglob Test BLANCA, Polyspecific 05/11/20 05/11/20 12:42 12:53 WBC RBC Hgb Hct MCV MCH MCHC RDW Plt Count MPV Immature Gran % (Auto) Neut % (Auto) Lymph % (Auto) [place] % (Auto) Eos % (Auto) Baso % (Auto) Lymph # (Auto) [place] # (Auto) Eos # (Auto) Baso # (Auto) Abs Immat Gran (auto) Absolute Neuts (auto) Absolute Nucleated RBC Nucleated RBC % (auto) Neutrophils % (Manual) Band Neutrophils % Lymphocytes % (Manual) Monocytes % (Manual) Eosinophils % (Manual) Abs Neuts (Manual) Lymphocytes # (Manual) Monocytes # (Manual) Eosinophils # (Manual) Nucleated RBCs Platelet Estimate Large Platelets Plt Morphology Comment RBC Morphology Basophilic Stippling Macrocytosis Ovalocytes Acanthocytes (Spur) Schistocytes Smear Tech's Comments Smear Path Review ESR Absolute Retic Percent Retic Immature Retic Fraction Retic Hgb Equivalent PT INR APTT Fibrinogen O2 Saturation ABG pH at Pt Temp ABG pH (Temp Correct) ABG pCO2 at Pt Temp ABG pCO2 (Temp Corrct ABG pO2 at Pt Temp ABG pO2 (Temp Correct ABG HCO3 ABG Base Excess (Actual) VBG pH 7.27 L VBG pCO2 43 VBG pO2 54 VBG HCO3 20 L VBG O2 Saturation 85.0 VBG Base Excess -5.8 Sodium Potassium Chloride Carbon Dioxide Anion Gap BUN Creatinine Estim Creat Clear Calc Estimated GFR Random Glucose Calcium Total Bilirubin Direct Bilirubin AST ALT Alkaline Phosphatase Ammonia Lactate Dehydrogenase Troponin I High Sens 114.0 H C-Reactive Protein Total Protein Albumin Urine Color Urine Appearance Urine pH Ur Specific [place] Urine Protein Urine Glucose (UA) Urine Ketones Urine Blood Urine Nitrite Ur Leukocyte Esterase Urine RBC Urine WBC Ur Squamous Epith Cells Amorphous Sediment Urine Bacteria Granular Casts Urine Mucus Ur Random Sodium Urine Creatinine Direct Antiglob Test BLANCA, Polyspecific Microbiology Microbiology Results: Microbiology 05/06/20 14:27 Blood - Venous Blood Culture - Preliminary No growth after 48 hours. 05/06/20 14:24 Blood - Venous Blood Culture - Preliminary No growth after 48 hours. Physical Exam Vital Signs: Vital Signs: Last Vital Signs Temp 99.3 F 05/11/20 14:00 Pulse 65 05/11/20 14:00 Resp 20 05/11/20 14:00 BP 140/63 H 05/11/20 14:00 Pulse Ox 96 05/11/20 14:00 Body Mass Index 40.1 Const: General: no acute distress HENMT: Head: Yes normal to inspection Resp: Effort & Inspection: normal respiratory effort Cardio: Rate: regular rate Rhythm: regular rhythm GI: Palpation (GI): Soft to palpation and nontender Skin: General skin exam: no rashes or lesions noted Assessment and Plan Assessment and plan (1) Acute respiratory failure with hypercapnia: Problem details: He has been on antibiotics for cellulitis so minimal infectious component at this point to lung He has some bandlike density right lung Day 5 antibiotics,was on Clindamycin for leg,day 1 Unasyn Status: Acute Assessment and Plan: Check nares MRSA May continue antibiotics, day 5/ only likely (2) Encephalopathy: Status: Acute (3) Cellulitis: Problem details: resolved Status: Acute Time Spent With Patient Time: Total time spent is greater than 50% in coordination of care (as mahinn doc) at patient's floor/unit and/or counseling patient: Time with patient: 15 - 24 minutes
--- NOTE | 2020-05-11 15:00 | CA_ITS ---
Transthoracic Echocardiogram Patient (Last, First, Middle): Pedro Luis Lozano, Gender: Male Date of : 1945 Age: 74 Procedure Date: 05/11/2020 Procedure Type: Transthoracic Echocardiogram Location: ICU Height: 165.1 cm Weight: 109.32 kg BSA: 2.14 m2 Heart Rate: bpm BP: 106 / 56 mmHg Hand Chain Maker: BRANDY Referring MD: Seb Warren MD Symptoms: hypoxia, history of CHF Study Quality: Fair/contrast Conclusions: - Normal left ventricular size and systolic function. There is moderately increased left ventricular wall thickness. The visually estimated ejection fraction is between 60-65%. - Elevated filling pressures. - Mildly increased right ventricular cavity size. There is normal right ventricular systolic function. - The inferior vena cava is dilated and collapses less than 50% with inspiration. Findings Left Ventricle Normal left ventricular size and systolic function. There is moderately increased left ventricular wall thickness. The visually estimated ejection fraction is between 60-65%. There is no evidence of regional wall motion abnormalities. Abnormal diastolic function is noted. Spectral Doppler is indicative of a pseudonormal filling pattern. Elevated filling pressures. Right Ventricle Mildly increased right ventricular cavity size. There is normal right ventricular systolic function. Atria The left atrium is mildly dilated. The right atrium is mildly dilated. Aortic Valve There is a normal trileaflet aortic valve. There is mild calcification of the aortic valve. There is mild thickening of the aortic valve. There is no aortic valve stenosis. There is no aortic valve regurgitation. Mitral Valve Normal mitral valve structure and function. There is no mitral valve regurgitation. There is no mitral valve stenosis. Pulmonic Valve The pulmonic valve is likely normal. Tricuspid Valve Normal tricuspid valve structure and function. There is no tricuspid valve regurgitation. Tricuspid regurgitation envelope is inadequate for calculation of right ventricular systolic pressure. Moderately elevated right atrial pressure. Great Vessels The visualized portions of the pulmonary artery and branches are normal. Venous The inferior vena cava is dilated and collapses less than 50% with inspiration. Pericardium/Pleural There is no evidence of pericardial effusion. Prior Study Comparison Changes noted compared to prior study dated: 11/12/2015. LVH, elevated filling pressures. mildly dilated RV. Measurements 2D Linear Measurements IVSd: 1.27 0.6-0.9/0.6-1.0 cm LVIDd: 4.25 3.9-5.3/4.2-5.9 cm LVIDd Index: 1.99 2.4-3.2/2.2-3.1 cm/m2 LVIDs: 2.56 2.0-3.6 cm LVPWd: 1.37 0.7-1.1 cm Ao Root: 3.40 2.1-3.5 cm LA Diam: 3.90 2.7-3.8/3.0-4.0 cm LAIDs Index: 1.82 1.5-2.3 cm/m2 LV Mass: 260.33 67-162/88-224 g LV Mass Index: 121.65 43-95/49-115 g/m2 LVOT Diam: 2.10 3.0+(-)1.3 cm Mitral Valve MV Pk E: 1.29 MV PK A: 0.94 MV Decel Time: 263.00 E/A: 1.40 E'Lateral: 7.72 E'Medial: 5.87 E/E' Med: 22.00 E/E' Lat: 16.70 PHT: 77.00 MVA PHT: 2.86 Decel [place]: 4.89 Aortic Valve AoV Pk Christopher: 1.64 AoV Mn Christopher: 1.21 AoV VTI: 0.41 AoV Pk Grad: 11.00 Aov Mn Grad: 6.00 ANÍBAL Cont.VTI: 1.50 LVOT LVOT Pk Christopher: 0.77 LVOT Mn Christopher: 0.48 LVOT VTI: 0.18 LVOT Pk Grad: 2.00 LVOT Mn Grad: 1.00 LVOT Diam: 2.10 LVOT Area: 3.46 Diastolic Function MV Pk E: 1.29 MV Pk A: 0.94 E/A: 1.40 E'Medial: 5.87 E/E' Med: 22.00 E' Laterial: 7.72 E/E' Lat: 16.70 Great Vessels Aorta Ao Root-2D: 3.40 2.0-3.7 cm Ao Asc: 3.40 2.1-3.4 cm Updated in Other Vendor System with Status of Final Ronaldo Coleman MD electronically signed on 05/12/2020 9:55:24 AM with status of Final
--- NOTE | 2020-05-11 15:16 | P.PNCC_ITS ---
Subjective Subjective Date of Service: 05/11/20 Interval History: 74-year-old gentleman, recent 50+ pack-year smoker, with underlying COPD, congestive heart failure, hypothyroidism admitted on 05/06/2020 with confusion, hypothermia, in hypoxemia. He has been admitted to [facility] and treated for aspiration pneumonia, bilateral lower extremity cellulitis, and being worked up for acute metabolic encephalopathy. Overnight 05/10-05/11/2020 OS as colitis oxygen requirements placed on 15 L nasal cannula and saturating 100% noted to be a extremely target. Arterial blood gas obtained late in the morning on 05/11/2020 with acute respiratory acidosis resulting in CO2 narcosis and pulmonary aspiration requiring intubation, ventilatory support, transferred to intensive care unit, vasopressor support, and bedside bronchoscopy for secretion clearance. Overnight events per brief HPI. Physical Exam Vital Signs: Vital Signs: Last Vital Signs Temp 99.3 F 05/11/20 15:00 Pulse 67 05/11/20 15:00 Resp 20 05/11/20 15:00 BP 153/63 H 05/11/20 15:00 Pulse Ox 95 05/11/20 15:00 Body Mass Index 40.1 Const: General: no acute distress and other (Sedated on the vent, obese) Eyes: Sclerae: sclerae normal EOM: EOMs intact bilaterally Neck: Neck: Yes no lymphadenopathy, Yes trachea midline and Yes supple Resp: Auscultation: crackles (Bibasilar) Cardio: Rate: regular rate Rhythm: regular rhythm Heart sounds: no gallops, no murmurs and no rubs GI: Palpation (GI): Soft to palpation and Other GI palpation findings present ( Nontender) Auscultation: normal bowel sounds Extrem: General: No clubbing, No cyanosis, Yes pedal edema (1+ bilateral) and Yes venous stasis dermatitis (Bilateral lower extremity) Objective Data Labs CBC & Chem 7: 05/11/20 12:42 05/11/20 12:42 Labs: Laboratory Results - last 24 hr 05/10/20 05/11/20 05/11/20 20:25 05:31 05:31 WBC 8.4 RBC 3.45 L Hgb 9.9 L Hct 34.1 L MCV 98.8 H MCH 28.7 MCHC 29.0 L RDW 16.3 H Plt Count 166 D MPV 12.0 Immature Gran % (Auto) Neut % (Auto) Lymph % (Auto) [place] % (Auto) Eos % (Auto) Baso % (Auto) Lymph # (Auto) [place] # (Auto) Eos # (Auto) Baso # (Auto) Abs Immat Gran (auto) Absolute Neuts (auto) Absolute Nucleated RBC 0.020 H Nucleated RBC % (auto) 0.2 Neutrophils % (Manual) 78 H Band Neutrophils % 10 H Lymphocytes % (Manual) 2 L Monocytes % (Manual) 9 Eosinophils % (Manual) 1 Abs Neuts (Manual) 7.4 Lymphocytes # (Manual) 0.2 L Monocytes # (Manual) 0.8 Eosinophils # (Manual) 0.1 Nucleated RBCs 1 H Platelet Estimate SLIGHTLY DECREASED Large Platelets PRESENT Plt Morphology Comment NOTED RBC Morphology NOTED Basophilic Stippling 1+ Macrocytosis 1+ Ovalocytes 1+ Acanthocytes (Spur) 1+ Schistocytes 1+ Smear Tech's Comments Smear Path Review SEE NOTE ESR Absolute Retic Percent Retic Immature Retic Fraction Retic Hgb Equivalent PT 13.4 H INR 1.1 APTT 43.2 H Fibrinogen > 700 H O2 Saturation ABG pH at Pt Temp ABG pH (Temp Correct) ABG pCO2 at Pt Temp ABG pCO2 (Temp Corrct ABG pO2 at Pt Temp ABG pO2 (Temp Correct ABG HCO3 ABG Base Excess (Actual) VBG pH VBG pCO2 VBG pO2 VBG HCO3 VBG O2 Saturation VBG Base Excess Sodium 145 Potassium 4.4 Chloride 110 H Carbon Dioxide 27 Anion Gap 12 BUN Creatinine Estim Creat Clear Calc Estimated GFR Random Glucose Calcium Total Bilirubin Direct Bilirubin AST ALT Alkaline Phosphatase Ammonia Lactate Dehydrogenase Troponin I High Sens C-Reactive Protein Total Protein Albumin Urine Color Urine Appearance Urine pH Ur Specific [place] Urine Protein Urine Glucose (UA) Urine Ketones Urine Blood Urine Nitrite Ur Leukocyte Esterase Urine RBC Urine WBC Ur Squamous Epith Cells Amorphous Sediment Urine Bacteria Granular Casts Urine Mucus Ur Random Sodium Urine Creatinine Direct Antiglob Test BLANCA, Polyspecific 05/11/20 05/11/20 05/11/20 05:31 05:31 08:00 WBC RBC Hgb Hct MCV MCH MCHC RDW Plt Count MPV Immature Gran % (Auto) Neut % (Auto) Lymph % (Auto) [place] % (Auto) Eos % (Auto) Baso % (Auto) Lymph # (Auto) [place] # (Auto) Eos # (Auto) Baso # (Auto) Abs Immat Gran (auto) Absolute Neuts (auto) Absolute Nucleated RBC Nucleated RBC % (auto) Neutrophils % (Manual) Band Neutrophils % Lymphocytes % (Manual) Monocytes % (Manual) Eosinophils % (Manual) Abs Neuts (Manual) Lymphocytes # (Manual) Monocytes # (Manual) Eosinophils # (Manual) Nucleated RBCs Platelet Estimate Large Platelets Plt Morphology Comment RBC Morphology Basophilic Stippling Macrocytosis Ovalocytes Acanthocytes (Spur) Schistocytes Smear Tech's Comments Smear Path Review ESR 102 H Absolute Retic Percent Retic Immature Retic Fraction Retic Hgb Equivalent PT INR APTT Fibrinogen O2 Saturation ABG pH at Pt Temp ABG pH (Temp Correct) ABG pCO2 at Pt Temp ABG pCO2 (Temp Corrct ABG pO2 at Pt Temp ABG pO2 (Temp Correct ABG HCO3 ABG Base Excess (Actual) VBG pH VBG pCO2 VBG pO2 VBG HCO3 VBG O2 Saturation VBG Base Excess Sodium 144 Potassium 5.0 Chloride 107 Carbon Dioxide 28 Anion Gap 14 BUN 46 H Creatinine 2.62 H Estim Creat Clear Calc 27.8 Estimated GFR 24 Random Glucose 121 H Calcium 8.3 L Total Bilirubin 0.5 Direct Bilirubin 0.4 AST 71 H ALT 85 H Alkaline Phosphatase 103 D Ammonia Lactate Dehydrogenase 316 H Troponin I High Sens C-Reactive Protein Total Protein 6.6 Albumin 3.1 L Urine Color Urine Appearance Urine pH Ur Specific [place] Urine Protein Urine Glucose (UA) Urine Ketones Urine Blood Urine Nitrite Ur Leukocyte Esterase Urine RBC Urine WBC Ur Squamous Epith Cells Amorphous Sediment Urine Bacteria Granular Casts Urine Mucus Ur Random Sodium Urine Creatinine Direct Antiglob Test TNP BLANCA, Polyspecific NEGATIVE 05/11/20 05/11/20 05/11/20 08:00 08:00 08:00 WBC RBC Hgb Hct MCV MCH MCHC RDW Plt Count MPV Immature Gran % (Auto) Neut % (Auto) Lymph % (Auto) [place] % (Auto) Eos % (Auto) Baso % (Auto) Lymph # (Auto) [place] # (Auto) Eos # (Auto) Baso # (Auto) Abs Immat Gran (auto) Absolute Neuts (auto) Absolute Nucleated RBC Nucleated RBC % (auto) Neutrophils % (Manual) Band Neutrophils % Lymphocytes % (Manual) Monocytes % (Manual) Eosinophils % (Manual) Abs Neuts (Manual) Lymphocytes # (Manual) Monocytes # (Manual) Eosinophils # (Manual) Nucleated RBCs Platelet Estimate Large Platelets Plt Morphology Comment RBC Morphology Basophilic Stippling Macrocytosis Ovalocytes Acanthocytes (Spur) Schistocytes Smear Tech's Comments Smear Path Review ESR Absolute Retic 0.038 Percent Retic 1.1 Immature Retic Fraction 18.2 H Retic Hgb Equivalent 24.4 L PT INR APTT Fibrinogen O2 Saturation ABG pH at Pt Temp ABG pH (Temp Correct) ABG pCO2 at Pt Temp ABG pCO2 (Temp Corrct ABG pO2 at Pt Temp ABG pO2 (Temp Correct ABG HCO3 ABG Base Excess (Actual) VBG pH VBG pCO2 VBG pO2 VBG HCO3 VBG O2 Saturation VBG Base Excess Sodium Potassium Chloride Carbon Dioxide Anion Gap BUN Creatinine Estim Creat Clear Calc Estimated GFR Random Glucose Calcium Total Bilirubin Direct Bilirubin AST ALT Alkaline Phosphatase Ammonia 65 H Lactate Dehydrogenase Troponin I High Sens C-Reactive Protein 33.92 H Total Protein Albumin Urine Color Urine Appearance Urine pH Ur Specific [place] Urine Protein Urine Glucose (UA) Urine Ketones Urine Blood Urine Nitrite Ur Leukocyte Esterase Urine RBC Urine WBC Ur Squamous Epith Cells Amorphous Sediment Urine Bacteria Granular Casts Urine Mucus Ur Random Sodium Urine Creatinine Direct Antiglob Test BLANCA, Polyspecific 05/11/20 05/11/20 05/11/20 08:00 08:00 08:00 WBC RBC Hgb Hct MCV MCH MCHC RDW Plt Count MPV Immature Gran % (Auto) Neut % (Auto) Lymph % (Auto) [place] % (Auto) Eos % (Auto) Baso % (Auto) Lymph # (Auto) [place] # (Auto) Eos # (Auto) Baso # (Auto) Abs Immat Gran (auto) Absolute Neuts (auto) Absolute Nucleated RBC Nucleated RBC % (auto) Neutrophils % (Manual) Band Neutrophils % Lymphocytes % (Manual) Monocytes % (Manual) Eosinophils % (Manual) Abs Neuts (Manual) Lymphocytes # (Manual) Monocytes # (Manual) Eosinophils # (Manual) Nucleated RBCs Platelet Estimate Large Platelets Plt Morphology Comment RBC Morphology Basophilic Stippling Macrocytosis Ovalocytes Acanthocytes (Spur) Schistocytes Smear Tech's Comments Smear Path Review ESR Absolute Retic Percent Retic Immature Retic Fraction Retic Hgb Equivalent PT INR APTT Fibrinogen O2 Saturation ABG pH at Pt Temp ABG pH (Temp Correct) ABG pCO2 at Pt Temp ABG pCO2 (Temp Corrct ABG pO2 at Pt Temp ABG pO2 (Temp Correct ABG HCO3 ABG Base Excess (Actual) VBG pH VBG pCO2 VBG pO2 VBG HCO3 VBG O2 Saturation VBG Base Excess Sodium Potassium Chloride Carbon Dioxide Anion Gap BUN Creatinine Estim Creat Clear Calc Estimated GFR Random Glucose Calcium Total Bilirubin Direct Bilirubin AST ALT Alkaline Phosphatase Ammonia Lactate Dehydrogenase Troponin I High Sens C-Reactive Protein Total Protein Albumin Urine Color YELLOW Urine Appearance CLOUDY Urine pH 5.5 Ur Specific [place] >= 1.030 H Urine Protein 2+ H Urine Glucose (UA) NEG Urine Ketones NEG Urine Blood 3+ H Urine Nitrite NEG Ur Leukocyte Esterase NEG Urine RBC 15-29 H Urine WBC 0 Ur Squamous Epith Cells 1+ Amorphous Sediment 3+ Urine Bacteria NONE Granular Casts 1-4 Urine Mucus 1+ Ur Random Sodium 21.0 Urine Creatinine 205.21 Direct Antiglob Test BLANCA, Polyspecific 05/11/20 05/11/20 05/11/20 08:58 12:42 12:42 WBC 10.6 RBC 3.27 L Hgb 9.3 L Hct 31.8 L MCV 97.2 MCH 28.4 MCHC 29.2 L RDW 16.0 Plt Count 176 MPV 11.7 Immature Gran % (Auto) 1.2 H Neut % (Auto) 84.5 H Lymph % (Auto) 3.7 L [place] % (Auto) 10.3 Eos % (Auto) 0.1 Baso % (Auto) 0.2 Lymph # (Auto) 0.4 L [place] # (Auto) 1.1 Eos # (Auto) 0.0 Baso # (Auto) 0.0 Abs Immat Gran (auto) 0.13 H Absolute Neuts (auto) 8.9 H Absolute Nucleated RBC 0.030 H Nucleated RBC % (auto) 0.3 H Neutrophils % (Manual) Band Neutrophils % Lymphocytes % (Manual) Monocytes % (Manual) Eosinophils % (Manual) Abs Neuts (Manual) Lymphocytes # (Manual) Monocytes # (Manual) Eosinophils # (Manual) Nucleated RBCs Platelet Estimate Large Platelets Plt Morphology Comment RBC Morphology Basophilic Stippling Macrocytosis Ovalocytes Acanthocytes (Spur) Schistocytes Smear Tech's Comments VERIFIED Smear Path Review ESR Absolute Retic Percent Retic Immature Retic Fraction Retic Hgb Equivalent PT INR APTT Fibrinogen O2 Saturation 96.0 ABG pH at Pt Temp 6.96 L* ABG pH (Temp Correct) 6.96 L* ABG pCO2 at Pt Temp 133 H* ABG pCO2 (Temp Corrct 130 H* ABG pO2 at Pt Temp 238 H ABG pO2 (Temp Correct 235 H ABG HCO3 30 H ABG Base Excess (Actual) -4.2 VBG pH VBG pCO2 VBG pO2 VBG HCO3 VBG O2 Saturation VBG Base Excess Sodium 145 Potassium 5.0 Chloride 106 Carbon Dioxide 24 Anion Gap 20 BUN 50 H Creatinine 3.11 H Estim Creat Clear Calc 23.4 Estimated GFR 20 Random Glucose 152 H Calcium 8.4 Total Bilirubin Direct Bilirubin AST ALT Alkaline Phosphatase Ammonia Lactate Dehydrogenase Troponin I High Sens C-Reactive Protein Total Protein Albumin Urine Color Urine Appearance Urine pH Ur Specific [place] Urine Protein Urine Glucose (UA) Urine Ketones Urine Blood Urine Nitrite Ur Leukocyte Esterase Urine RBC Urine WBC Ur Squamous Epith Cells Amorphous Sediment Urine Bacteria Granular Casts Urine Mucus Ur Random Sodium Urine Creatinine Direct Antiglob Test BLANCA, Polyspecific 05/11/20 05/11/20 12:42 12:53 WBC RBC Hgb Hct MCV MCH MCHC RDW Plt Count MPV Immature Gran % (Auto) Neut % (Auto) Lymph % (Auto) [place] % (Auto) Eos % (Auto) Baso % (Auto) Lymph # (Auto) [place] # (Auto) Eos # (Auto) Baso # (Auto) Abs Immat Gran (auto) Absolute Neuts (auto) Absolute Nucleated RBC Nucleated RBC % (auto) Neutrophils % (Manual) Band Neutrophils % Lymphocytes % (Manual) Monocytes % (Manual) Eosinophils % (Manual) Abs Neuts (Manual) Lymphocytes # (Manual) Monocytes # (Manual) Eosinophils # (Manual) Nucleated RBCs Platelet Estimate Large Platelets Plt Morphology Comment RBC Morphology Basophilic Stippling Macrocytosis Ovalocytes Acanthocytes (Spur) Schistocytes Smear Tech's Comments Smear Path Review ESR Absolute Retic Percent Retic Immature Retic Fraction Retic Hgb Equivalent PT INR APTT Fibrinogen O2 Saturation ABG pH at Pt Temp ABG pH (Temp Correct) ABG pCO2 at Pt Temp ABG pCO2 (Temp Corrct ABG pO2 at Pt Temp ABG pO2 (Temp Correct ABG HCO3 ABG Base Excess (Actual) VBG pH 7.27 L VBG pCO2 43 VBG pO2 54 VBG HCO3 20 L VBG O2 Saturation 85.0 VBG Base Excess -5.8 Sodium Potassium Chloride Carbon Dioxide Anion Gap BUN Creatinine Estim Creat Clear Calc Estimated GFR Random Glucose Calcium Total Bilirubin Direct Bilirubin AST ALT Alkaline Phosphatase Ammonia Lactate Dehydrogenase Troponin I High Sens 114.0 H C-Reactive Protein Total Protein Albumin Urine Color Urine Appearance Urine pH Ur Specific [place] Urine Protein Urine Glucose (UA) Urine Ketones Urine Blood Urine Nitrite Ur Leukocyte Esterase Urine RBC Urine WBC Ur Squamous Epith Cells Amorphous Sediment Urine Bacteria Granular Casts Urine Mucus Ur Random Sodium Urine Creatinine Direct Antiglob Test BLANCA, Polyspecific Microbiology Microbiology Results: Microbiology 05/06/20 14:27 Blood - Venous Blood Culture - Preliminary No growth after 48 hours. 05/06/20 14:24 Blood - Venous Blood Culture - Preliminary No growth after 48 hours. Progress Note: A&P Assessment and plan (1) Acute respiratory failure with hypercapnia: Status: Acute Assessment and Plan: Assessment: 74-year-old gentleman with underlying obesity, congestive heart failure, COPD admitted with confusion, hypothermia, and hypoxemia with hospital course complicated by acute renal failure, acute hypercapnic respiratory failure, pulmonary aspiration. Plan: Neuro: Metabolic encephalopathy with CO2 narcosis. To evaluate further during the sedation vacation after resolution of the acute hypercarbic component. Cardiac: Acute on chronic congestive heart failure. 2D echocardiogram is pending. Continue with diuresis. Pulmonary: Acute hypercapnic respiratory failure secondary to CO2 retention/CO2 narcosis with of pulmonary aspiration component resulting in aspiration pneumonitis versus pneumonia requiring ventilatory support and bronchoscopic clearance. Continue to titrate off ventilatory support as tolerated. Renal: Acute renal failure, cardiorenal versus AIN. Nephrology service care appreciated. Non oliguric. Continue to monitor urine output and renal indices. Continue with IV diuresis. Endo: No acute issues. Underlying history of hypothyroidism. GI: No acute issues. ID: Pulmonary aspiration with resultant aspiration pneumonia versus aspiration pneumonitis. Empirically covered with Unasyn. No evidence of bilateral lower extremity cellulitis - chronic venous stasis dermatitis changes. Heme/Onc: No acute issues. Psych: No acute issues. Miscellaneous: No acute issues. Prophylaxis: Heparin, famotidine Diet: Nothing by mouth Critical care time spent: 120 minutes excluding separately billable procedures (2) Acute metabolic encephalopathy: Status: Acute (3) Acute renal failure: Status: Acute (4) Pulmonary aspiration: Status: Acute Time Spent With Patient Total time spent with greater than 50% in coordination of care (as documented) at patient's floor/unit and/or counseling patient:: 0 Critical Care Time Critical Care Time (minutes): 120
--- NOTE | 2020-05-11 16:42 | P.PNNE_ITS ---
Subjective Subjective Date of Service: 05/24/20 Interval History: 74-year-old hypertensive who had altered mental status at home and because of which family brought him to the emergency room and transfer to the floor where he was treated with clindamycin for cellulitis of his lower extremity but the redness was bilateral although the left side was worse and and several days later with further reduction of mental status and we was noted to have an acute hypercarbic respiratory failure intubated for a day extubated and then following which he again now became hypoxic with respiratory failure and reintubated and brought down to the ICU again and he has been persistently encephalopathic 2 days ago he was not the even so much is responding to pain now he is grimacing and eye opening to a degree and we have repeated his MRI and he does not have any significant structural disease on the MRI and has got good brain flow on nuclear medicine scanning but he has a sed rate of 115 with this persistent encephalopathy which began at home prior to admission and we could not obtain any additional CSF in 0 to look for protein banding so mom empirically treating with 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 Central nervous system toxicology was negative as was workup for and common i nfected its Physical Exam Vital Signs: Vital Signs: Last Vital Signs Temp 99.5 F 05/11/20 16:00 Pulse 67 05/11/20 16:00 Resp 21 H 05/11/20 16:00 BP 153/66 H 05/11/20 16:00 Pulse Ox 96 05/11/20 16:00 Body Mass Index 40.1 Const: Other: Constitutional : Obtunded, not responsive, sleeping , on vent Neck : Normal inspection, Supple Cardiovascular : RRR, S1 S2, no lower extremity edema Respiratory : Decrease a forced and bilateral air entry, bilateral basal crackles, wheezes or rhonchi Gastrointestinal: soft, lax, Normal bowel sounds, Non tender Skin : Warm/Dry, No rash Neurological : Obtunded, moving all extremities, open eyes to stimuli and follow simple commands, No other focal deficit General: cooperative, no acute distress, ill appearing and other (Sedated on the vent); No acute distress Nutritional Appearance: obese HENMT: Head: Yes normal to inspection Mouth: Normal oral and palatal mucosa present Eyes: General: appearance normal, both eyes and all related structures Sclerae: sclerae normal EOM: EOMs intact bilaterally Neck: Neck: Yes no lymphadenopathy, Yes trachea midline, Yes supple and Yes no JVD Resp: Other: On the vent Effort & Inspection: normal respiratory effort and no respiratory distress Auscultation: clear to auscultation bilaterally, crackles (Right basilar), rhonchi and diminished lung sounds Cardio: Other: Constitutional : Obtunded, not responsive, sleeping , on vent Neck : Normal inspection, Supple Cardiovascular : RRR, S1 S2, no lower extremity edema Respiratory : Decrease a forced and bilateral air entry, bilateral basal crackles, wheezes or rhonchi Gastrointestinal: soft, lax, Normal bowel sounds, Non tender Skin : Warm/Dry, No rash Neurological : Obtunded, moving all extremities, open eyes to stimuli and fol low simple commands, No other focal deficit Jugular venous distension: no JVD Palpation: no palpable S3 Rate: regular rate Rhythm: regular rhythm Heart sounds: no gallops, no murmurs and no rubs GI: Palpation (GI): Soft to palpation, nontender and Other GI palpation findings present ( Nontender) Auscultation: normal bowel sounds Back/Spine/Pelvis: Other: Low decubitus ulcer noted just above the coccyx me asuring approximately 2 cm round and at least 2 cm deep with necrotic subcutaneous tissue at the wound base. No evidence of granulation tissue noted at the wound base. Thin discharge is noted from the wound but no underlying abscess could be appreciated. Skin: Other: Venous stasis changes bilateral lower extremities. Changes appear chronic General skin exam: no rashes or lesions noted Lesions: lesion noted and other (ulcer bekah and redness) Neuro: Motor exam (neuro): no asterixis Extrem: Other: Edema General: No clubbing, No cyanosis, Yes edema, Yes pedal edema (1+ bilateral) and Yes venous stasis dermatitis (Bilateral lower extremity) Objective Data Labs CBC & Chem 7: 05/24/20 05:17 05/24/20 05:17 Labs: Laboratory Results - last 24 hr 05/10/20 05/11/20 05/11/20 20:25 05:31 05:31 WBC 8.4 RBC 3.45 L Hgb 9.9 L Hct 34.1 L MCV 98.8 H MCH 28.7 MCHC 29.0 L RDW 16.3 H Plt Count 166 D MPV 12.0 Immature Gran % (Auto) Neut % (Auto) Lymph % (Auto) [place] % (Auto) Eos % (Auto) Baso % (Auto) Lymph # (Auto) [place] # (Auto) Eos # (Auto) Baso # (Auto) Abs Immat Gran (auto) Absolute Neuts (auto) Absolute Nucleated RBC 0.020 H Nucleated RBC % (auto) 0.2 Neutrophils % (Manual) 78 H Band Neutrophils % 10 H Lymphocytes % (Manual) 2 L Monocytes % (Manual) 9 Eosinophils % (Manual) 1 Abs Neuts (Manual) 7.4 Lymphocytes # (Manual) 0.2 L Monocytes # (Manual) 0.8 Eosinophils # (Manual) 0.1 Nucleated RBCs 1 H Platelet Estimate SLIGHTLY DECREASED Large Platelets PRESENT Plt Morphology Comment NOTED RBC Morphology NOTED Basophilic Stippling 1+ Macrocytosis 1+ Ovalocytes 1+ Acanthocytes (Spur) 1+ Schistocytes 1+ Smear Tech's Comments Smear Path Review SEE NOTE ESR Absolute Retic Percent Retic Immature Retic Fraction Retic Hgb Equivalent PT 13.4 H INR 1.1 APTT 43.2 H Fibrinogen > 700 H O2 Saturation ABG pH at Pt Temp ABG pH (Temp Correct) ABG pCO2 at Pt Temp ABG pCO2 (Temp Corrct ABG pO2 at Pt Temp ABG pO2 (Temp Correct ABG HCO3 ABG Base Excess (Actual) VBG pH VBG pCO2 VBG pO2 VBG HCO3 VBG O2 Saturation VBG Base Excess Sodium 145 Potassium 4.4 Chloride 110 H Carbon Dioxide 27 Anion Gap 12 BUN Creatinine Estim Creat Clear Calc Estimated GFR Random Glucose Calcium Total Bilirubin Direct Bilirubin AST ALT Alkaline Phosphatase Ammonia Lactate Dehydrogenase Troponin I High Sens C-Reactive Protein Total Protein Albumin Urine Color Urine Appearance Urine pH Ur Specific [place] Urine Protein Urine Glucose (UA) Urine Ketones Urine Blood Urine Nitrite Ur Leukocyte Esterase Urine RBC Urine WBC Ur Squamous Epith Cells Amorphous Sediment Urine Bacteria Granular Casts Urine Mucus Ur Random Sodium Urine Creatinine Direct Antiglob Test BLANCA, Polyspecific 05/11/20 05/11/20 05/11/20 05:31 05:31 08:00 WBC RBC Hgb Hct MCV MCH MCHC RDW Plt Count MPV Immature Gran % (Auto) Neut % (Auto) Lymph % (Auto) [place] % (Auto) Eos % (Auto) Baso % (Auto) Lymph # (Auto) [place] # (Auto) Eos # (Auto) Baso # (Auto) Abs Immat Gran (auto) Absolute Neuts (auto) Absolute Nucleated RBC Nucleated RBC % (auto) Neutrophils % (Manual) Band Neutrophils % Lymphocytes % (Manual) Monocytes % (Manual) Eosinophils % (Manual) Abs Neuts (Manual) Lymphocytes # (Manual) Monocytes # (Manual) Eosinophils # (Manual) Nucleated RBCs Platelet Estimate Large Platelets Plt Morphology Comment RBC Morphology Basophilic Stippling Macrocytosis Ovalocytes Acanthocytes (Spur) Schistocytes Smear Tech's Comments Smear Path Review ESR 102 H Absolute Retic Percent Retic Immature Retic Fraction Retic Hgb Equivalent PT INR APTT Fibrinogen O2 Saturation ABG pH at Pt Temp ABG pH (Temp Correct) ABG pCO2 at Pt Temp ABG pCO2 (Temp Corrct ABG pO2 at Pt Temp ABG pO2 (Temp Correct ABG HCO3 ABG Base Excess (Actual) VBG pH VBG pCO2 VBG pO2 VBG HCO3 VBG O2 Saturation VBG Base Excess Sodium 144 Potassium 5.0 Chloride 107 Carbon Dioxide 28 Anion Gap 14 BUN 46 H Creatinine 2.62 H Estim Creat Clear Calc 27.8 Estimated GFR 24 Random Glucose 121 H Calcium 8.3 L Total Bilirubin 0.5 Direct Bilirubin 0.4 AST 71 H ALT 85 H Alkaline Phosphatase 103 D Ammonia Lactate Dehydrogenase 316 H Troponin I High Sens C-Reactive Protein Total Protein 6.6 Albumin 3.1 L Urine Color Urine Appearance Urine pH Ur Specific [place] Urine Protein Urine Glucose (UA) Urine Ketones Urine Blood Urine Nitrite Ur Leukocyte Esterase Urine RBC Urine WBC Ur Squamous Epith Cells Amorphous Sediment Urine Bacteria Granular Casts Urine Mucus Ur Random Sodium Urine Creatinine Direct Antiglob Test TNP BLANCA, Polyspecific NEGATIVE 05/11/20 05/11/20 05/11/20 08:00 08:00 08:00 WBC RBC Hgb Hct MCV MCH MCHC RDW Plt Count MPV Immature Gran % (Auto) Neut % (Auto) Lymph % (Auto) [place] % (Auto) Eos % (Auto) Baso % (Auto) Lymph # (Auto) [place] # (Auto) Eos # (Auto) Baso # (Auto) Abs Immat Gran (auto) Absolute Neuts (auto) Absolute Nucleated RBC Nucleated RBC % (auto) Neutrophils % (Manual) Band Neutrophils % Lymphocytes % (Manual) Monocytes % (Manual) Eosinophils % (Manual) Abs Neuts (Manual) Lymphocytes # (Manual) Monocytes # (Manual) Eosinophils # (Manual) Nucleated RBCs Platelet Estimate Large Platelets Plt Morphology Comment RBC Morphology Basophilic Stippling Macrocytosis Ovalocytes Acanthocytes (Spur) Schistocytes Smear Tech's Comments Smear Path Review ESR Absolute Retic 0.038 Percent Retic 1.1 Immature Retic Fraction 18.2 H Retic Hgb Equivalent 24.4 L PT INR APTT Fibrinogen O2 Saturation ABG pH at Pt Temp ABG pH (Temp Correct) ABG pCO2 at Pt Temp ABG pCO2 (Temp Corrct ABG pO2 at Pt Temp ABG pO2 (Temp Correct ABG HCO3 ABG Base Excess (Actual) VBG pH VBG pCO2 VBG pO2 VBG HCO3 VBG O2 Saturation VBG Base Excess Sodium Potassium Chloride Carbon Dioxide Anion Gap BUN Creatinine Estim Creat Clear Calc Estimated GFR Random Glucose Calcium Total Bilirubin Direct Bilirubin AST ALT Alkaline Phosphatase Ammonia 65 H Lactate Dehydrogenase Troponin I High Sens C-Reactive Protein 33.92 H Total Protein Albumin Urine Color Urine Appearance Urine pH Ur Specific [place] Urine Protein Urine Glucose (UA) Urine Ketones Urine Blood Urine Nitrite Ur Leukocyte Esterase Urine RBC Urine WBC Ur Squamous Epith Cells Amorphous Sediment Urine Bacteria Granular Casts Urine Mucus Ur Random Sodium Urine Creatinine Direct Antiglob Test BLANCA, Polyspecific 05/11/20 05/11/20 05/11/20 08:00 08:00 08:00 WBC RBC Hgb Hct MCV MCH MCHC RDW Plt Count MPV Immature Gran % (Auto) Neut % (Auto) Lymph % (Auto) [place] % (Auto) Eos % (Auto) Baso % (Auto) Lymph # (Auto) [place] # (Auto) Eos # (Auto) Baso # (Auto) Abs Immat Gran (auto) Absolute Neuts (auto) Absolute Nucleated RBC Nucleated RBC % (auto) Neutrophils % (Manual) Band Neutrophils % Lymphocytes % (Manual) Monocytes % (Manual) Eosinophils % (Manual) Abs Neuts (Manual) Lymphocytes # (Manual) Monocytes # (Manual) Eosinophils # (Manual) Nucleated RBCs Platelet Estimate Large Platelets Plt Morphology Comment RBC Morphology Basophilic Stippling Macrocytosis Ovalocytes Acanthocytes (Spur) Schistocytes Smear Tech's Comments Smear Path Review ESR Absolute Retic Percent Retic Immature Retic Fraction Retic Hgb Equivalent PT INR APTT Fibrinogen O2 Saturation ABG pH at Pt Temp ABG pH (Temp Correct) ABG pCO2 at Pt Temp ABG pCO2 (Temp Corrct ABG pO2 at Pt Temp ABG pO2 (Temp Correct ABG HCO3 ABG Base Excess (Actual) VBG pH VBG pCO2 VBG pO2 VBG HCO3 VBG O2 Saturation VBG Base Excess Sodium Potassium Chloride Carbon Dioxide Anion Gap BUN Creatinine Estim Creat Clear Calc Estimated GFR Random Glucose Calcium Total Bilirubin Direct Bilirubin AST ALT Alkaline Phosphatase Ammonia Lactate Dehydrogenase Troponin I High Sens C-Reactive Protein Total Protein Albumin Urine Color YELLOW Urine Appearance CLOUDY Urine pH 5.5 Ur Specific [place] >= 1.030 H Urine Protein 2+ H Urine Glucose (UA) NEG Urine Ketones NEG Urine Blood 3+ H Urine Nitrite NEG Ur Leukocyte Esterase NEG Urine RBC 15-29 H Urine WBC 0 Ur Squamous Epith Cells 1+ Amorphous Sediment 3+ Urine Bacteria NONE Granular Casts 1-4 Urine Mucus 1+ Ur Random Sodium 21.0 Urine Creatinine 205.21 Direct Antiglob Test BLANCA, Polyspecific 05/11/20 05/11/20 05/11/20 08:58 12:42 12:42 WBC 10.6 RBC 3.27 L Hgb 9.3 L Hct 31.8 L MCV 97.2 MCH 28.4 MCHC 29.2 L RDW 16.0 Plt Count 176 MPV 11.7 Immature Gran % (Auto) 1.2 H Neut % (Auto) 84.5 H Lymph % (Auto) 3.7 L [place] % (Auto) 10.3 Eos % (Auto) 0.1 Baso % (Auto) 0.2 Lymph # (Auto) 0.4 L [place] # (Auto) 1.1 Eos # (Auto) 0.0 Baso # (Auto) 0.0 Abs Immat Gran (auto) 0.13 H Absolute Neuts (auto) 8.9 H Absolute Nucleated RBC 0.030 H Nucleated RBC % (auto) 0.3 H Neutrophils % (Manual) Band Neutrophils % Lymphocytes % (Manual) Monocytes % (Manual) Eosinophils % (Manual) Abs Neuts (Manual) Lymphocytes # (Manual) Monocytes # (Manual) Eosinophils # (Manual) Nucleated RBCs Platelet Estimate Large Platelets Plt Morphology Comment RBC Morphology Basophilic Stippling Macrocytosis Ovalocytes Acanthocytes (Spur) Schistocytes Smear Tech's Comments VERIFIED Smear Path Review ESR Absolute Retic Percent Retic Immature Retic Fraction Retic Hgb Equivalent PT INR APTT Fibrinogen O2 Saturation 96.0 ABG pH at Pt Temp 6.96 L* ABG pH (Temp Correct) 6.96 L* ABG pCO2 at Pt Temp 133 H* ABG pCO2 (Temp Corrct 130 H* ABG pO2 at Pt Temp 238 H ABG pO2 (Temp Correct 235 H ABG HCO3 30 H ABG Base Excess (Actual) -4.2 VBG pH VBG pCO2 VBG pO2 VBG HCO3 VBG O2 Saturation VBG Base Excess Sodium 145 Potassium 5.0 Chloride 106 Carbon Dioxide 24 Anion Gap 20 BUN 50 H Creatinine 3.11 H Estim Creat Clear Calc 23.4 Estimated GFR 20 Random Glucose 152 H Calcium 8.4 Total Bilirubin Direct Bilirubin AST ALT Alkaline Phosphatase Ammonia Lactate Dehydrogenase Troponin I High Sens C-Reactive Protein Total Protein Albumin Urine Color Urine Appearance Urine pH Ur Specific [place] Urine Protein Urine Glucose (UA) Urine Ketones Urine Blood Urine Nitrite Ur Leukocyte Esterase Urine RBC Urine WBC Ur Squamous Epith Cells Amorphous Sediment Urine Bacteria Granular Casts Urine Mucus Ur Random Sodium Urine Creatinine Direct Antiglob Test BLANCA, Polyspecific 05/11/20 05/11/20 12:42 12:53 WBC RBC Hgb Hct MCV MCH MCHC RDW Plt Count MPV Immature Gran % (Auto) Neut % (Auto) Lymph % (Auto) [place] % (Auto) Eos % (Auto) Baso % (Auto) Lymph # (Auto) [place] # (Auto) Eos # (Auto) Baso # (Auto) Abs Immat Gran (auto) Absolute Neuts (auto) Absolute Nucleated RBC Nucleated RBC % (auto) Neutrophils % (Manual) Band Neutrophils % Lymphocytes % (Manual) Monocytes % (Manual) Eosinophils % (Manual) Abs Neuts (Manual) Lymphocytes # (Manual) Monocytes # (Manual) Eosinophils # (Manual) Nucleated RBCs Platelet Estimate Large Platelets Plt Morphology Comment RBC Morphology Basophilic Stippling Macrocytosis Ovalocytes Acanthocytes (Spur) Schistocytes Smear Tech's Comments Smear Path Review ESR Absolute Retic Percent Retic Immature Retic Fraction Retic Hgb Equivalent PT INR APTT Fibrinogen O2 Saturation ABG pH at Pt Temp ABG pH (Temp Correct) ABG pCO2 at Pt Temp ABG pCO2 (Temp Corrct ABG pO2 at Pt Temp ABG pO2 (Temp Correct ABG HCO3 ABG Base Excess (Actual) VBG pH 7.27 L VBG pCO2 43 VBG pO2 54 VBG HCO3 20 L VBG O2 Saturation 85.0 VBG Base Excess -5.8 Sodium Potassium Chloride Carbon Dioxide Anion Gap BUN Creatinine Estim Creat Clear Calc Estimated GFR Random Glucose Calcium Total Bilirubin Direct Bilirubin AST ALT Alkaline Phosphatase Ammonia Lactate Dehydrogenase Troponin I High Sens 114.0 H C-Reactive Protein Total Protein Albumin Urine Color Urine Appearance Urine pH Ur Specific [place] Urine Protein Urine Glucose (UA) Urine Ketones Urine Blood Urine Nitrite Ur Leukocyte Esterase Urine RBC Urine WBC Ur Squamous Epith Cells Amorphous Sediment Urine Bacteria Granular Casts Urine Mucus Ur Random Sodium Urine Creatinine Direct Antiglob Test BLANCA, Polyspecific Microbiology Microbiology Results: Microbiology 05/06/20 14:27 Blood - Venous Blood Culture - Final No growth after 5 days. 05/06/20 14:24 Blood - Venous Blood Culture - Final No growth after 5 days. 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 Shall follow closely Status: Acute (8) Acute respiratory failure with hypercapnia: Status: Acute (9) Anemia: Status: Acute (10) Encephalopathy: Problem details: There are no infectious causes evident at this time His ESR checked on request and is over 100 There is concern over giant cell arteritis/vasculitis Status: Acute (11) Hypoxemia requiring supplemental oxygen: Status: Acute (12) Acute metabolic encephalopathy: Status: Acute (13) Aspiration pneumonia: Status: Acute (14) Cellulitis: Problem details: resolved Status: Acute (15) CKD (chronic kidney disease), stage III: Status: Acute (16) Hypernatremia: Status: Acute Assessment and Plan: So at this point on beginning Decadron empirically and if he awakens further with some demonstration of cognitive function I think a pressure support weaning trial would be in order Fall Risk Details Current Medications: Current Medications Generic Name Dose Route Start Last Admin Trade Name Freq PRN Reason Stop Dose Admin Acetaminophen 650 mg 05/06/20 16:58 Acetaminophen 325 Mg Tablet PO Q6H PRN Pain, Mild (Pain Scale 1-3) Albuterol/Ipratropium 3 ml 05/06/20 17:13 Albuterol/Iprat 2.5/0.5mg 3 Ml Ampul.Neb INHALE RQ4H PRN Wheezing Betamethasone Dipropion Augmented 1 appl 05/07/20 21:00 05/11/20 07:18 Betamethasone Dip Aug 0.05% Cr 15 Gm Tube TOPICAL 1 appl BID COSME Administration Protocol Chlorhexidine Gluconate 15 ml 05/11/20 15:00 Chlorhexidine Gluc Oral Rinse 15 Ml Mouthwash BUCCAL TID COSME Famotidine 20 mg 05/12/20 09:00 Famotidine/Pf 20 Mg/2 Ml Vial IVPUSH DAILY [facility] Heparin Sodium (Porcine) 5,000 unit 05/06/20 18:00 05/11/20 05:28 Heparin Sodium,Porcine 5,000 Unit/Ml Vial SUBCUT 5,000 unit Q12H COSME Administration Propofol 1,000 mg in 100 mls @ 0 mls/hr 05/11/20 11:15 05/11/20 13:58 Diprivan IVCONT 50 mcg/kg/min .Q0M COSME 32.85 mls/hr Administration Protocol Per Protocol Norepinephrine Bitartrate 8 mg in 250 mls @ 0 mls/hr 05/11/20 11:15 05/11/20 13:00 Levophed IVCONT 0.17 mcg/kg/min .Q0M COSME 34.9 mls/hr Titration Protocol Per Protocol Albumin Human 100 mls @ 100 mls/hr 05/11/20 12:30 05/11/20 14:42 Kedbumin 25 % IV 05/12/20 07:29 Infused Q6H COSME Infusion Ampicillin Sodium/Sulbactam 100 mls @ 200 mls/hr 05/11/20 14:00 05/11/20 14:43 Sodium 3 gm/ Sodium Chloride IV Infused Q12H COSME Infusion Levothyroxine Sodium 125 mcg 05/07/20 09:00 05/11/20 07:19 Levothyroxine Sodium 125 Mcg Tablet PO Not Given DAILY COSME Nystatin 1 appl 05/07/20 09:00 05/11/20 07:19 Nystatin Powder 15 Gm Bottle TOPICAL 1 appl TID COSME Administration Protocol Ondansetron HCl 4 mg 05/06/20 16:58 Ondansetron Hcl 4 Mg/2 Ml Vial IVPUSH Q8H PRN Nausea and Vomiting Sodium Chloride 3 ml 05/07/20 00:00 05/11/20 07:19 0.9 % Sodium Chloride Flush 3 Ml Syringe IVFLUSH 3 ml QSHIFT COSME Administration Time Spent With Patient Time: Total time spent is greater than 50% in coordination of care (as documented) at patient's floor/unit and/or counseling patient: Time with patient: 15 - 24 minutes
[2020-05-11] MEDS: Chlorhexidine Gluc Oral Rinse 15 ML MOUTHWASH BUCCAL ×2 (17:13→21:49)
--- NOTE | 2020-05-11 18:45 | P.PNNP_ITS ---
Subjective Subjective Date of Service: 05/11/20 Interval history: Seen and exmined. Events noted. Resp decomp req intubation and ICU care Physical Exam Vital Signs: Vital Signs: Last Vital Signs Temp 99.5 F 05/11/20 17:00 Pulse 60 05/11/20 18:00 Resp 20 05/11/20 18:00 BP 135/59 L 05/11/20 18:00 Pulse Ox 97 05/11/20 18:00 Body Mass Index 40.1 Const: General: cooperative Cardio: Jugular venous distension: no JVD Rate: regular rate Skin: Lesions: lesion noted and other (ulcer bekah and redness) Objective Data Labs CBC & Chem 7: 05/11/20 12:42 05/11/20 12:42 Labs: Laboratory Results - last 24 hr 05/10/20 05/11/20 05/11/20 20:25 05:31 05:31 WBC 8.4 RBC 3.45 L Hgb 9.9 L Hct 34.1 L MCV 98.8 H MCH 28.7 MCHC 29.0 L RDW 16.3 H Plt Count 166 D MPV 12.0 Immature Gran % (Auto) Neut % (Auto) Lymph % (Auto) [place] % (Auto) Eos % (Auto) Baso % (Auto) Lymph # (Auto) [place] # (Auto) Eos # (Auto) Baso # (Auto) Abs Immat Gran (auto) Absolute Neuts (auto) Absolute Nucleated RBC 0.020 H Nucleated RBC % (auto) 0.2 Neutrophils % (Manual) 78 H Band Neutrophils % 10 H Lymphocytes % (Manual) 2 L Monocytes % (Manual) 9 Eosinophils % (Manual) 1 Abs Neuts (Manual) 7.4 Lymphocytes # (Manual) 0.2 L Monocytes # (Manual) 0.8 Eosinophils # (Manual) 0.1 Nucleated RBCs 1 H Platelet Estimate SLIGHTLY DECREASED Large Platelets PRESENT Plt Morphology Comment NOTED RBC Morphology NOTED Basophilic Stippling 1+ Macrocytosis 1+ Ovalocytes 1+ Acanthocytes (Spur) 1+ Schistocytes 1+ Smear Tech's Comments Smear Path Review SEE NOTE ESR Absolute Retic Percent Retic Immature Retic Fraction Retic Hgb Equivalent PT 13.4 H INR 1.1 APTT 43.2 H Fibrinogen > 700 H O2 Saturation ABG pH at Pt Temp ABG pH (Temp Correct) ABG pCO2 at Pt Temp ABG pCO2 (Temp Corrct ABG pO2 at Pt Temp ABG pO2 (Temp Correct ABG HCO3 ABG Base Excess (Actual) VBG pH VBG pCO2 VBG pO2 VBG HCO3 VBG O2 Saturation VBG Base Excess Sodium 145 Potassium 4.4 Chloride 110 H Carbon Dioxide 27 Anion Gap 12 BUN Creatinine Estim Creat Clear Calc Estimated GFR Random Glucose Calcium Total Bilirubin Direct Bilirubin AST ALT Alkaline Phosphatase Ammonia Lactate Dehydrogenase Troponin I High Sens C-Reactive Protein Total Protein Albumin Urine Color Urine Appearance Urine pH Ur Specific [place] Urine Protein Urine Glucose (UA) Urine Ketones Urine Blood Urine Nitrite Ur Leukocyte Esterase Urine RBC Urine WBC Ur Squamous Epith Cells Amorphous Sediment Urine Bacteria Granular Casts Urine Mucus Ur Random Sodium Urine Creatinine Direct Antiglob Test BLANCA, Polyspecific 05/11/20 05/11/20 05/11/20 05:31 05:31 08:00 WBC RBC Hgb Hct MCV MCH MCHC RDW Plt Count MPV Immature Gran % (Auto) Neut % (Auto) Lymph % (Auto) [place] % (Auto) Eos % (Auto) Baso % (Auto) Lymph # (Auto) [place] # (Auto) Eos # (Auto) Baso # (Auto) Abs Immat Gran (auto) Absolute Neuts (auto) Absolute Nucleated RBC Nucleated RBC % (auto) Neutrophils % (Manual) Band Neutrophils % Lymphocytes % (Manual) Monocytes % (Manual) Eosinophils % (Manual) Abs Neuts (Manual) Lymphocytes # (Manual) Monocytes # (Manual) Eosinophils # (Manual) Nucleated RBCs Platelet Estimate Large Platelets Plt Morphology Comment RBC Morphology Basophilic Stippling Macrocytosis Ovalocytes Acanthocytes (Spur) Schistocytes Smear Tech's Comments Smear Path Review ESR 102 H Absolute Retic Percent Retic Immature Retic Fraction Retic Hgb Equivalent PT INR APTT Fibrinogen O2 Saturation ABG pH at Pt Temp ABG pH (Temp Correct) ABG pCO2 at Pt Temp ABG pCO2 (Temp Corrct ABG pO2 at Pt Temp ABG pO2 (Temp Correct ABG HCO3 ABG Base Excess (Actual) VBG pH VBG pCO2 VBG pO2 VBG HCO3 VBG O2 Saturation VBG Base Excess Sodium 144 Potassium 5.0 Chloride 107 Carbon Dioxide 28 Anion Gap 14 BUN 46 H Creatinine 2.62 H Estim Creat Clear Calc 27.8 Estimated GFR 24 Random Glucose 121 H Calcium 8.3 L Total Bilirubin 0.5 Direct Bilirubin 0.4 AST 71 H ALT 85 H Alkaline Phosphatase 103 D Ammonia Lactate Dehydrogenase 316 H Troponin I High Sens C-Reactive Protein Total Protein 6.6 Albumin 3.1 L Urine Color Urine Appearance Urine pH Ur Specific [place] Urine Protein Urine Glucose (UA) Urine Ketones Urine Blood Urine Nitrite Ur Leukocyte Esterase Urine RBC Urine WBC Ur Squamous Epith Cells Amorphous Sediment Urine Bacteria Granular Casts Urine Mucus Ur Random Sodium Urine Creatinine Direct Antiglob Test TNP BLANCA, Polyspecific NEGATIVE 05/11/20 05/11/20 05/11/20 08:00 08:00 08:00 WBC RBC Hgb Hct MCV MCH MCHC RDW Plt Count MPV Immature Gran % (Auto) Neut % (Auto) Lymph % (Auto) [place] % (Auto) Eos % (Auto) Baso % (Auto) Lymph # (Auto) [place] # (Auto) Eos # (Auto) Baso # (Auto) Abs Immat Gran (auto) Absolute Neuts (auto) Absolute Nucleated RBC Nucleated RBC % (auto) Neutrophils % (Manual) Band Neutrophils % Lymphocytes % (Manual) Monocytes % (Manual) Eosinophils % (Manual) Abs Neuts (Manual) Lymphocytes # (Manual) Monocytes # (Manual) Eosinophils # (Manual) Nucleated RBCs Platelet Estimate Large Platelets Plt Morphology Comment RBC Morphology Basophilic Stippling Macrocytosis Ovalocytes Acanthocytes (Spur) Schistocytes Smear Tech's Comments Smear Path Review ESR Absolute Retic 0.038 Percent Retic 1.1 Immature Retic Fraction 18.2 H Retic Hgb Equivalent 24.4 L PT INR APTT Fibrinogen O2 Saturation ABG pH at Pt Temp ABG pH (Temp Correct) ABG pCO2 at Pt Temp ABG pCO2 (Temp Corrct ABG pO2 at Pt Temp ABG pO2 (Temp Correct ABG HCO3 ABG Base Excess (Actual) VBG pH VBG pCO2 VBG pO2 VBG HCO3 VBG O2 Saturation VBG Base Excess Sodium Potassium Chloride Carbon Dioxide Anion Gap BUN Creatinine Estim Creat Clear Calc Estimated GFR Random Glucose Calcium Total Bilirubin Direct Bilirubin AST ALT Alkaline Phosphatase Ammonia 65 H Lactate Dehydrogenase Troponin I High Sens C-Reactive Protein 33.92 H Total Protein Albumin Urine Color Urine Appearance Urine pH Ur Specific [place] Urine Protein Urine Glucose (UA) Urine Ketones Urine Blood Urine Nitrite Ur Leukocyte Esterase Urine RBC Urine WBC Ur Squamous Epith Cells Amorphous Sediment Urine Bacteria Granular Casts Urine Mucus Ur Random Sodium Urine Creatinine Direct Antiglob Test BLANCA, Polyspecific 05/11/20 05/11/20 05/11/20 08:00 08:00 08:00 WBC RBC Hgb Hct MCV MCH MCHC RDW Plt Count MPV Immature Gran % (Auto) Neut % (Auto) Lymph % (Auto) [place] % (Auto) Eos % (Auto) Baso % (Auto) Lymph # (Auto) [place] # (Auto) Eos # (Auto) Baso # (Auto) Abs Immat Gran (auto) Absolute Neuts (auto) Absolute Nucleated RBC Nucleated RBC % (auto) Neutrophils % (Manual) Band Neutrophils % Lymphocytes % (Manual) Monocytes % (Manual) Eosinophils % (Manual) Abs Neuts (Manual) Lymphocytes # (Manual) Monocytes # (Manual) Eosinophils # (Manual) Nucleated RBCs Platelet Estimate Large Platelets Plt Morphology Comment RBC Morphology Basophilic Stippling Macrocytosis Ovalocytes Acanthocytes (Spur) Schistocytes Smear Tech's Comments Smear Path Review ESR Absolute Retic Percent Retic Immature Retic Fraction Retic Hgb Equivalent PT INR APTT Fibrinogen O2 Saturation ABG pH at Pt Temp ABG pH (Temp Correct) ABG pCO2 at Pt Temp ABG pCO2 (Temp Corrct ABG pO2 at Pt Temp ABG pO2 (Temp Correct ABG HCO3 ABG Base Excess (Actual) VBG pH VBG pCO2 VBG pO2 VBG HCO3 VBG O2 Saturation VBG Base Excess Sodium Potassium Chloride Carbon Dioxide Anion Gap BUN Creatinine Estim Creat Clear Calc Estimated GFR Random Glucose Calcium Total Bilirubin Direct Bilirubin AST ALT Alkaline Phosphatase Ammonia Lactate Dehydrogenase Troponin I High Sens C-Reactive Protein Total Protein Albumin Urine Color YELLOW Urine Appearance CLOUDY Urine pH 5.5 Ur Specific [place] >= 1.030 H Urine Protein 2+ H Urine Glucose (UA) NEG Urine Ketones NEG Urine Blood 3+ H Urine Nitrite NEG Ur Leukocyte Esterase NEG Urine RBC 15-29 H Urine WBC 0 Ur Squamous Epith Cells 1+ Amorphous Sediment 3+ Urine Bacteria NONE Granular Casts 1-4 Urine Mucus 1+ Ur Random Sodium 21.0 Urine Creatinine 205.21 Direct Antiglob Test BLANCA, Polyspecific 05/11/20 05/11/20 05/11/20 08:58 12:42 12:42 WBC 10.6 RBC 3.27 L Hgb 9.3 L Hct 31.8 L MCV 97.2 MCH 28.4 MCHC 29.2 L RDW 16.0 Plt Count 176 MPV 11.7 Immature Gran % (Auto) 1.2 H Neut % (Auto) 84.5 H Lymph % (Auto) 3.[address] [place] % (Auto) 10.3 Eos % (Auto) 0.1 Baso % (Auto) 0.2 Lymph # (Auto) 0.[address] [place] # (Auto) 1.1 Eos # (Auto) 0.0 Baso # (Auto) 0.0 Abs Immat Gran (auto) 0.13 H Absolute Neuts (auto) 8.9 H Absolute Nucleated RBC 0.030 H Nucleated RBC % (auto) 0.3 H Neutrophils % (Manual) Band Neutrophils % Lymphocytes % (Manual) Monocytes % (Manual) Eosinophils % (Manual) Abs Neuts (Manual) Lymphocytes # (Manual) Monocytes # (Manual) Eosinophils # (Manual) Nucleated RBCs Platelet Estimate Large Platelets Plt Morphology Comment RBC Morphology Basophilic Stippling Macrocytosis Ovalocytes Acanthocytes (Spur) Schistocytes Smear Tech's Comments VERIFIED Smear Path Review ESR Absolute Retic Percent Retic Immature Retic Fraction Retic Hgb Equivalent PT INR APTT Fibrinogen O2 Saturation 96.0 ABG pH at Pt Temp 6.96 L* ABG pH (Temp Correct) 6.96 L* ABG pCO2 at Pt Temp 133 H* ABG pCO2 (Temp Corrct 130 H* ABG pO2 at Pt Temp 238 H ABG pO2 (Temp Correct 235 H ABG HCO3 30 H ABG Base Excess (Actual) -4.2 VBG pH VBG pCO2 VBG pO2 VBG HCO3 VBG O2 Saturation VBG Base Excess Sodium 145 Potassium 5.0 Chloride 106 Carbon Dioxide 24 Anion Gap 20 BUN 50 H Creatinine 3.11 H Estim Creat Clear Calc 23.4 Estimated GFR 20 Random Glucose 152 H Calcium 8.4 Total Bilirubin Direct Bilirubin AST ALT Alkaline Phosphatase Ammonia Lactate Dehydrogenase Troponin I High Sens C-Reactive Protein Total Protein Albumin Urine Color Urine Appearance Urine pH Ur Specific [place] Urine Protein Urine Glucose (UA) Urine Ketones Urine Blood Urine Nitrite Ur Leukocyte Esterase Urine RBC Urine WBC Ur Squamous Epith Cells Amorphous Sediment Urine Bacteria Granular Casts Urine Mucus Ur Random Sodium Urine Creatinine Direct Antiglob Test BLANCA, Polyspecific 05/11/20 05/11/20 12:42 12:53 WBC RBC Hgb Hct MCV MCH MCHC RDW Plt Count MPV Immature Gran % (Auto) Neut % (Auto) Lymph % (Auto) [place] % (Auto) Eos % (Auto) Baso % (Auto) Lymph # (Auto) [place] # (Auto) Eos # (Auto) Baso # (Auto) Abs Immat Gran (auto) Absolute Neuts (auto) Absolute Nucleated RBC Nucleated RBC % (auto) Neutrophils % (Manual) Band Neutrophils % Lymphocytes % (Manual) Monocytes % (Manual) Eosinophils % (Manual) Abs Neuts (Manual) Lymphocytes # (Manual) Monocytes # (Manual) Eosinophils # (Manual) Nucleated RBCs Platelet Estimate Large Platelets Plt Morphology Comment RBC Morphology Basophilic Stippling Macrocytosis Ovalocytes Acanthocytes (Spur) Schistocytes Smear Tech's Comments Smear Path Review ESR Absolute Retic Percent Retic Immature Retic Fraction Retic Hgb Equivalent PT INR APTT Fibrinogen O2 Saturation ABG pH at Pt Temp ABG pH (Temp Correct) ABG pCO2 at Pt Temp ABG pCO2 (Temp Corrct ABG pO2 at Pt Temp ABG pO2 (Temp Correct ABG HCO3 ABG Base Excess (Actual) VBG pH 7.27 L VBG pCO2 43 VBG pO2 54 VBG HCO3 20 L VBG O2 Saturation 85.0 VBG Base Excess -5.8 Sodium Potassium Chloride Carbon Dioxide Anion Gap BUN Creatinine Estim Creat Clear Calc Estimated GFR Random Glucose Calcium Total Bilirubin Direct Bilirubin AST ALT Alkaline Phosphatase Ammonia Lactate Dehydrogenase Troponin I High Sens 114.0 H C-Reactive Protein Total Protein Albumin Urine Color Urine Appearance Urine pH Ur Specific [place] Urine Protein Urine Glucose (UA) Urine Ketones Urine Blood Urine Nitrite Ur Leukocyte Esterase Urine RBC Urine WBC Ur Squamous Epith Cells Amorphous Sediment Urine Bacteria Granular Casts Urine Mucus Ur Random Sodium Urine Creatinine Direct Antiglob Test BLANCA, Polyspecific Microbiology Microbiology Results: Microbiology 05/06/20 14:27 Blood - Venous Blood Culture - Final No growth after 5 days. 05/06/20 14:24 Blood - Venous Blood Culture - Final No growth after 5 days. Assessment & Plan Assessment and plan (1) Cellulitis: Problem details: resolved Status: Acute Assessment and Plan: 74 year old man with history of CHF and hypothyroidism admitted with acute encephalopathy related to dehydration and cellulitis and noted renal dysfunc and hyperNa Now decomp resp status req inutbation 1. JETT: sepsis assoc ATNand a risk prog to point of possibly needing HD in next 24-48 hrs 2. CKD 3b: bsl SCr 2.0; etiol unlcear but its been longstanding; UA unremarkable; suspecty age related vs HTN nephrosclerosis 3.. HyperNa:SNa impoved with IVF ; still most c/w poor po intake; doubt DI given UOP is not impressive 4.. cellulitis 5, Rsp failure 6. Sepsis REC: cont ot track UOP and renal fucn; avoid NToxins; optimize hemodyanamics/resp as per ICU team will follow with team Time Spent With Patient Time: Total time spent is greater than 50% in coordination of care (as documented) at patient's floor/unit and/or counseling patient:
--- NOTE | 2020-05-11 19:19 | PC.NURSE ---
Pt transfered from IMC to ICU at 0915 this morning S/P intubation at bedside on IM. On arrival BP 70/30, Pheny given IVP by MD at bedside. Levo started at 0.1, titrated down to 0.05. Prop started at 10mcg/kg/min, titrated up to 50mcg/kg/min. 50mEq sodium bicarb given for PH 6.9. Bedside bronch per MD fleming. Echo done at bedside. Central line placed R ij, CXR complete, meds switched to central line. Pt is DNR. pROXY Russell in to visit. Vent settings AC 20, TV 700, PEEP 5, FIO2 START 100% DECREASED to 24% min vol 13.7. Crit trop 114 today, aware, no new orders. Bed locked and in lowest position.
[2020-05-12] VITALS (35 sets, daily range): BP systolic 93–134; BP diastolic 35–68; PULSE 39–90; RESP 11–29; TEMP 35–36.4; O2SAT 62–99
[2020-05-12] MEDS: propofoL 1,000 MG/100 ML VIAL 19.71 MG IVCONT ×3 (00:56→19:58)
[2020-05-12] MEDS: Albumin Human 25 % 100 ML IV ×2 (00:57→05:36)
[2020-05-12] MEDS: Ampicillin Sodium/Sulbactam Na 3 GM in 0.9 % Sodium Chloride 100 ML IV ×2 (00:57→14:46)
[2020-05-12 05:20] LABS: VBG HCO3 25 mmol/L (22-26); VBG pCO2 38 mmHg; VBG pH 7.42 (7.32-7.43); VBG pO2 50 mmHg
[2020-05-12 05:22] LABS: Basophils Percent Auto 0.3 % (0-2); Eosinophils Absolute Auto 0.2 X10*3/uL (0.0-0.4); Eosinophils Percent Auto 2.5 % (0-4); Hematocrit 24.2 % (42-52); Hemoglobin 7.4 g/dl (14.0-18.0); Imm Gran Abs Auto 0.06 X10*3/uL (0.00-0.03); Imm Gran Pct Auto 0.9 % (0.0-0.4); Lymphocytes Absolute Auto 0.4 X10*3/uL (1.2-4.9); Lymphocytes Percent Auto 6.4 % (20-40); MANUAL DIFF FLAG SCAN; Mean Corpuscular HGB Conc 30.6 g/dl (31.0-36.0); Mean Corpuscular Hemoglobin 28.2 pg (27.0-33.0); Mean Corpuscular Volume 92.4 fL (80-98); Mean Platelet Volume 12.2 fL (9.4-12.4); Monocytes Absolute Auto 0.6 X10*3/uL (0.1-1.2); Monocytes Percent Auto 9.3 % (2-11); Neutrophils Absolute Auto 5.5 X10*3/uL (2.0-8.3); Neutrophils Percent Auto 80.6 % (45-73); Platelet Count 191 X10*3/uL (160-400); Red Blood Count 2.62 X10*6/uL (4.60-5.80); Red Cell Distribution Width 15.6 % (11.0-16.0); SCAN SMEAR FLAG 1; White Blood Count 6.9 X10*3/uL (4.8-10.8)
[2020-05-12] MEDS: propofoL 1,000 MG/100 ML VIAL 26.28 MG IVCONT ×2 (05:35→13:38)
[2020-05-12 05:59] LABS: SLIDE REVIEW VERIFIED
[2020-05-12 06:00] LABS: Alanine Aminotransferase 56 U/L (0-40); Albumin Level 3.5 g/dL (3.5-5.0); Alkaline Phosphatase 84 U/L (39-117); Anion Gap 18 (12-20); Aspartate Amino Transferase 42 U/L (5-37); Bilirubin Total 0.8 mg/dL (0.0-1.0); Blood Urea Nitrogen 60 mg/dL (9-16); Calcium 8.2 mg/dL (8.4-10.2); Carbon Dioxide 25 mmol/L (22-29); Chloride 107 mmol/L (96-108); Creatinine Clr Calc Pharmacy 21.8; Estimated Glomerular Filt Rate 18; Glucose Random 122 mg/dL (60-115); Magnesium 2.7 mg/dL (1.6-2.6); Phosphorus 4.4 mg/dL (2.7-4.5); Potassium 3.9 mmol/L (3.3-5.1); Sodium 146 mmol/L (135-145); Total Protein 6.2 g/dL (6.5-8.0)
[2020-05-12 06:01] LABS: Venous Blood Gas Refer to POC result
[2020-05-12] MEDS: Famotidine/PF 20 MG/2 ML VIAL IVPUSH (08:16)
[2020-05-12] MEDS: 0.9 % Sodium Chloride Flush 3 ML SYRINGE IVFLUSH ×3 (08:16→19:58)
[2020-05-12] MEDS: Levothyroxine Sodium 125 MCG TABLET PO (08:17)
[2020-05-12] MEDS: Chlorhexidine Gluc Oral Rinse 15 ML MOUTHWASH BUCCAL ×3 (08:17→19:58)
[2020-05-12] MEDS: Nystatin Powder 15 GM BOTTLE 1 APPL TOPICAL ×3 (08:32→19:58)
[2020-05-12] MEDS: Betamethasone Dip Aug 0.05% Cr 15 GM TUBE 1 APPL TOPICAL ×2 (08:32→19:58)
--- NOTE | 2020-05-12 10:14 | P.PNCC_ITS ---
Subjective Subjective Date of Service: 05/12/20 Interval History: 74-year-old gentleman, recent 50+ pack-year smoker, with underlying COPD, congestive heart failure, hypothyroidism admitted on 05/06/2020 with confusion, hypothermia, in hypoxemia. He has been admitted to [facility] and treated for aspiration pneumonia, bilateral lower extremity cellulitis, and being worked up for acute metabolic encephalopathy. Overnight 05/10-05/11/2020 OS as colitis oxygen requirements placed on 15 L nasal cannula and saturating 100% noted to be a extremely target. Arterial blood gas obtained late in the morning on 05/11/2020 with acute respiratory acidosis resulting in CO2 narcosis and pulmonary aspiration requiring intubation, ventilatory support, transferred to intensive care unit, vasopressor support, and bedside bronchoscopy for secretion clearance. No events overnight. No arousal with sedation vacation today. Physical Exam Vital Signs: Vital Signs: Last Vital Signs Temp 96.8 F 05/12/20 10:00 Pulse 64 05/12/20 10:00 Resp 20 05/12/20 10:00 BP 108/52 L 05/12/20 10:00 Pulse Ox 99 05/12/20 10:00 Body Mass Index 40.1 Const: General: no acute distress and other (Sedated on the vent) Eyes: Sclerae: sclerae normal EOM: EOMs intact bilaterally Neck: Neck: Yes no lymphadenopathy, Yes trachea midline and Yes supple Resp: Effort & Inspection: normal respiratory effort and no respiratory distress Auscultation: clear to auscultation bilaterally Cardio: Rate: regular rate Rhythm: regular rhythm Heart sounds: no gallops, no murmurs and no rubs GI: Palpation (GI): Soft to palpation and Other GI palpation findings present ( Nontender) Auscultation: normal bowel sounds Extrem: General: No clubbing, No cyanosis, Yes pedal edema (Trace bilateral) and Yes venous stasis dermatitis (Bilateral lower extremity) Objective Data Labs CBC & Chem 7: 05/12/20 04:59 05/12/20 04:59 Labs: Laboratory Results - last 24 hr 05/11/20 05/11/20 05/11/20 12:42 12:42 12:42 WBC 10.6 RBC 3.27 L Hgb 9.3 L Hct 31.8 L MCV 97.2 MCH 28.4 MCHC 29.2 L RDW 16.0 Plt Count 176 MPV 11.7 Immature Gran % (Auto) 1.2 H Neut % (Auto) 84.5 H Lymph % (Auto) 3.7 L [place] % (Auto) 10.3 Eos % (Auto) 0.1 Baso % (Auto) 0.2 Lymph # (Auto) 0.4 L [place] # (Auto) 1.1 Eos # (Auto) 0.0 Baso # (Auto) 0.0 Abs Immat Gran (auto) 0.13 H Absolute Neuts (auto) 8.9 H Absolute Nucleated RBC 0.030 H Nucleated RBC % (auto) 0.3 H Smear Tech's Comments VERIFIED VBG pH VBG pCO2 VBG pO2 VBG HCO3 VBG O2 Saturation VBG Base Excess Sodium 145 Potassium 5.0 Chloride 106 Carbon Dioxide 24 Anion Gap 20 BUN 50 H Creatinine 3.11 H Estim Creat Clear Calc 23.4 Estimated GFR 20 Random Glucose 152 H Calcium 8.4 Phosphorus Magnesium Total Bilirubin AST ALT Alkaline Phosphatase Troponin I High Sens 114.0 H Total Protein Albumin 05/11/20 05/12/20 05/12/20 12:53 04:59 04:59 WBC 6.9 RBC 2.62 L Hgb 7.4 L D Hct 24.2 L D MCV 92.4 MCH 28.2 MCHC 30.6 L RDW 15.6 Plt Count 191 MPV 12.2 Immature Gran % (Auto) 0.9 H Neut % (Auto) 80.6 H Lymph % (Auto) 6.4 L [place] % (Auto) 9.3 Eos % (Auto) 2.5 Baso % (Auto) 0.3 Lymph # (Auto) 0.4 L [place] # (Auto) 0.6 Eos # (Auto) 0.2 Baso # (Auto) 0.0 Abs Immat Gran (auto) 0.06 H Absolute Neuts (auto) 5.5 Absolute Nucleated RBC 0.000 Nucleated RBC % (auto) 0.0 Smear Tech's Comments VERIFIED VBG pH 7.27 L VBG pCO2 43 VBG pO2 54 VBG HCO3 20 L VBG O2 Saturation 85.0 VBG Base Excess -5.8 Sodium 146 H Potassium 3.9 D Chloride 107 Carbon Dioxide 25 Anion Gap 18 BUN 60 H Creatinine 3.34 H Estim Creat Clear Calc 21.8 Estimated GFR 18 Random Glucose 122 H Calcium 8.2 L Phosphorus 4.4 Magnesium 2.7 H Total Bilirubin 0.8 AST 42 H D ALT 56 H Alkaline Phosphatase 84 Troponin I High Sens Total Protein 6.2 L Albumin 3.5 05/12/20 05:13 WBC RBC Hgb Hct MCV MCH MCHC RDW Plt Count MPV Immature Gran % (Auto) Neut % (Auto) Lymph % (Auto) [place] % (Auto) Eos % (Auto) Baso % (Auto) Lymph # (Auto) [place] # (Auto) Eos # (Auto) Baso # (Auto) Abs Immat Gran (auto) Absolute Neuts (auto) Absolute Nucleated RBC Nucleated RBC % (auto) Smear Tech's Comments VBG pH 7.42 VBG pCO2 38 VBG pO2 50 VBG HCO3 25 VBG O2 Saturation 80.0 VBG Base Excess 1.0 Sodium Potassium Chloride Carbon Dioxide Anion Gap BUN Creatinine Estim Creat Clear Calc Estimated GFR Random Glucose Calcium Phosphorus Magnesium Total Bilirubin AST ALT Alkaline Phosphatase Troponin I High Sens Total Protein Albumin Microbiology Microbiology Results: Microbiology 05/06/20 14:27 Blood - Venous Blood Culture - Final No growth after 5 days. 05/06/20 14:24 Blood - Venous Blood Culture - Final No growth after 5 days. Progress Note: A&P Assessment and plan (1) Pulmonary aspiration: Status: Acute Assessment and Plan: Assessment: 74-year-old gentleman with underlying obesity, congestive heart failure, COPD admitted with confusion, hypothermia, and hypoxemia with hospital course complicated by acute renal failure, acute hypercapnic respiratory failure, pulmonary aspiration. Plan: Neuro: Metabolic encephalopathy with CO2 narcosis. Poor arousal with sedation vacation. Will obtain MRI. Cardiac: Acute on chronic congestive heart failure. 2D echocardiogram with diastolic dysfunction and elevated filling pressures. Continue with diuresis. Pulmonary: Acute hypercapnic respiratory failure secondary to CO2 retention/CO2 narcosis with of pulmonary aspiration component resulting in aspiration pneumonitis versus pneumonia requiring ventilatory support and bronchoscopic clearance. Continue to titrate off ventilatory support as tolerated. Renal: Acute renal failure, cardiorenal versus AIN. Nephrology service care appreciated. Non oliguric. Continue to monitor urine output and renal indices. Poor response to high-dose Lasix. Endo: No acute issues. Underlying history of hypothyroidism. GI: No acute issues. ID: Pulmonary aspiration with resultant aspiration pneumonia versus aspiration pneumonitis. Empirically covered with Unasyn. No evidence of bilateral lower extremity cellulitis - chronic venous stasis dermatitis changes. Heme/Onc: No acute issues. Psych: No acute issues. Miscellaneous: No acute issues. Prophylaxis: Heparin, famotidine Diet: Tube feeds Critical care time spent: 60 minutes (2) Acute renal failure: Status: Acute (3) Acute respiratory failure with hypercapnia: Status: Acute (4) Acute metabolic encephalopathy: Status: Acute Time Spent With Patient Total time spent with greater than 50% in coordination of care (as documented) at patient's floor/unit and/or counseling patient:: 0 Critical Care Time Critical Care Time (minutes): 60
--- NOTE | 2020-05-12 11:12 | PC.NURSE ---
Addendum entered by Nya Jaimes RN 05/12/20 13:53: BASED OFF OF VBG RESULTS PT REINTUBATED AT 1338. PROPOFOL 50 MG IVP GIVEN. ETT 7.5/25 AT LIP. AC 20 TV 550 PEEP 5 FI02 35%. PROPOFOL GTT RESTARTED AT 40 MCG/KG/MIN AND LEVOPHED GTT 0.04 MCG/KG/MIN. OG TUBE PLACED. AWAITING CXR FOR PLACEMENT CONFIRMATION. FAMILY CALLED AND UPDATED. Original Note: PROPOFOL GTT CUT IN HALF AT 0824, TURNED OFF AT 0930. PT MOVING ALL EXTREMITIES, OPENS EYES WHEN NAME IS CALLED. EXTUBATED AT 1040 TO 2L NC. 02 GOAL PER MD IS 87-92%. WILL CONTINUE TO MONITOR. BEDSIDE AND UPDATED ON PLAN OF CARE THIS AM.
[2020-05-12 11:33] LABS: MRSA Nasal PCR NEGATIVE (Negative); SA Nasal PCR NEGATIVE (Negative)
--- NOTE | 2020-05-12 12:05 | PM.HEMONCPN ---
Medical Summary - Medical Summary Date of Service: 05/12/20 Chief complaint: anemia Medical Summary: DIAGNOSIS: 1. ANEMIA. 2. THROMBOCYTOPENIA. 3. CKD. 4. QUESTION OF TTP. Interval History Interval history: His BUN has risen to 60 and the creatinine to 3.3. The hematocrit has fallen to 24. Review of Systems - Neurologic Reports system reviewed and no additional complaints, except as documented [facility] [place] Medical History: Medical History (Last Reviewed 05/07/20 @ 16:44 by Marissa Castellanos MD) CHF (congestive heart failure) Diabetes HTN (hypertension) Hypothyroidism Functional capacity: uses cane/walker Family history: reviewed and not pertinent Social History: Social History (Last Reviewed 05/07/20 @ 16:44 by Marissa Castellanos MD) Living Situation History: Household Members: Spouse Housing: House Do you presently have visiting nurse or other home services: No Alcohol History: Unable to assess alcohol history related to: Unable to respond Alcohol intake: unknown Tobacco History: Smoking Status: Unknown if ever smoked Substance Use History: Use of substances other than those prescribed or required for medical reasons: Unknown Currently Displaying Signs/Symptoms of Drug Intoxication Withdrawal: No Advance Directives: Advance Directives: No Advance Directives Information Provided: No Homicidal Assessment: Do you have thoughts of harming others: None Do you have a plan to hurt others: No Plan Nutrition Assessment: Recently lost weight without trying: Unsure Nutrition Risks: Difficulty chewing Nutrition Risks: Difficulty swallowing Patient : No Occupation Assessmet: service: No Current occupational status: retired Smoking status: Unknown if ever smoked Home Medications and Allergies Current Medications: Current Medications Generic Name Dose Route Start Last Admin Trade Name Alek PRN Reason Stop Dose Admin Acetaminophen 650 mg 05/06/20 16:58 Acetaminophen 325 Mg Tablet PO Q6H PRN Pain, Mild (Pain Scale 1-3) Albuterol/Ipratropium 3 ml 05/06/20 17:13 Albuterol/Iprat 2.5/0.5mg 3 Ml Ampul.Neb INHALE RQ4H PRN Wheezing Betamethasone Dipropion Augmented 1 appl 05/07/20 21:00 05/12/20 08:32 Betamethasone Dip Aug 0.05% Cr 15 Gm Tube TOPICAL 1 appl BID COSME Administration Protocol Chlorhexidine Gluconate 15 ml 05/11/20 15:00 05/12/20 08:17 Chlorhexidine Gluc Oral Rinse 15 Ml Mouthwash BUCCAL 15 ml TID COSME Administration Famotidine 20 mg 05/12/20 09:00 05/12/20 08:16 Famotidine/Pf 20 Mg/2 Ml Vial IVPUSH 20 mg DAILY COSME Administration Heparin Sodium (Porcine) 5,000 unit 05/06/20 18:00 05/12/20 06:10 Heparin Sodium,Porcine 5,000 Unit/Ml Vial SUBCUT Not Given Q12H COSME Propofol 1,000 mg in 100 mls @ 0 mls/hr 05/11/20 11:15 05/12/20 09:30 Diprivan IVCONT 0 mcg/kg/min .Q0M COSME 0 mls/hr Titration Protocol Per Protocol Norepinephrine Bitartrate 8 mg in 250 mls @ 0 mls/hr 05/11/20 11:15 05/12/20 09:25 Levophed IVCONT 0.04 mcg/kg/min .Q0M COSME 8.21 mls/hr Titration Protocol Per Protocol Ampicillin Sodium/Sulbactam 100 mls @ 200 mls/hr 05/11/20 14:00 05/12/20 01:33 Sodium 3 gm/ Sodium Chloride IV Infused Q12H COSME Infusion Levothyroxine Sodium 125 mcg 05/07/20 09:00 05/12/20 08:17 Levothyroxine Sodium 125 Mcg Tablet PO 125 mcg DAILY COSME Administration Nystatin 1 appl 05/07/20 09:00 05/12/20 08:32 Nystatin Powder 15 Gm Bottle TOPICAL 1 appl TID COSME Administration Protocol Ondansetron HCl 4 mg 05/06/20 16:58 Ondansetron Hcl 4 Mg/2 Ml Vial IVPUSH Q8H PRN Nausea and Vomiting Sodium Chloride 3 ml 05/07/20 00:00 05/12/20 08:16 0.9 % Sodium Chloride Flush 3 Ml Syringe IVFLUSH 3 ml QSHIFT COSME Administration Home Medications Medication Instructions Recorded Confirmed Type furosemide 1 tab PO TID 05/06/20 05/06/20 History levothyroxine 1 tab PO DAILY 05/06/20 05/06/20 History metoprolol tartrate 1 tab PO DAILY 05/06/20 05/06/20 History spironolactone 1 tab PO BID 05/06/20 05/06/20 History tamsulosin 1 cap PO DAILY 05/06/20 05/06/20 History Allergies Allergy/AdvReac Type Severity Reaction Status Date / Time No Known Allergies Allergy Unknown NONE Unverified 11/17/19 14:44 Exam Vital signs: Vital Signs Temp 95.7 F L 05/12/20 12:00 Pulse 71 05/12/20 12:00 Resp 13 05/12/20 12:00 BP 122/64 05/12/20 12:00 Pulse Ox 89 L 05/12/20 12:00 Intake & Output 05/11/20 05/12/20 05/12/20 18:59 06:59 18:59 Intake Total 691.858 / 1415.611 723.753 / 1415.611 183.206 / 183.206 Output Total 575 / 2065 1440 / 2065 320 / 320 Balance 116.858 / -649.389 -716.247 / -649.389 -136.794 / -136.794 Urine Output (Average ml/kg/hr) 0.44 1.10 0.24 Intake: Intake, Oral Amount 0 / 0 Intake, Tube Irrigant Amount 60 / 60 Intake, IV Amount 691.858 / 1415.611 723.753 / 1415.611 123.206 / 123.206 Albumin Human 25 % 100 ml @ 100 200 / 400 200 / 400 mls/hr IV Q6H [facility] Rx#: [id number] Ampicillin Sodium/Sulbactam Na 100 / 200 100 / 200 3 gm In 0.9 % Sodium Chloride 100 ml @ 200 mls/hr IV Q12H [facility] Rx#:[id number] Dextrose 5 % 1,000 ml @ 100 mls 0 / 0 /hr IVCONT .Q10H [facility] Rx#: [id number] Furosemide 500 mg In Container, 1.65 / 1.65 Empty 0 ml @ 5 MG/HR 0.5 mls/hr IVCONT .Q24H [facility] Rx#: [id number] Norepinephrine Bitartrate/NS 8 227.794 / 299.342 71.548 / 299.342 34.73 / 34.73 mg In 250 ml @ Per Protocol IVCONT .Q0M [facility] Rx#:[id number] propofoL 1,000 mg In 100 ml @ 162.414 / 514.619 352.205 / 514.619 88.476 / 88.476 Per Protocol IVCONT .Q0M [facility] Rx #:[id number] Output: Output, Urine Amount (Catheter) 2064 144 / 2064 320 / 320 Urethral [id number] 1440 / 2064 320 / 320 Weight 109.5 kg Body Mass Index 40.1 - Constitutional Present: no acute distress, mild distress - Routine HEENT Exam Head: Present: normal inspection - Routine Respiratory Exam Present: decreased breath sounds, CTAB - Routine Cardiovascular Exam Cardiovascular: Present: RRR, S1, S2 - Routine Abdominal Exam Present: nontender - Routine Skin Exam Present: intact - Routine Neurological Exam Present: alert, altered mental status Data - Labs CBC & Chem 7: 05/12/20 04:59 05/12/20 04:59 Labs: 05/06/20 CT head/brain wo con Stat XR chest 1V Stat 05/06/20 12:44 Midazolam HCl/PF [Versed] 2 mg .ROUTE .STK-MED ONE 05/06/20 14:12 ECG 12 lead EKG Stat EKG Documentation DIRECTED XR chest 1V Stat 0.9 % Sodium Chloride [Ns] 1,000 ml IVCONT 999 mls/hr Piperacillin Sodium/Tazobactam [Zosyn] 3.375 gm 0.9 % Sodium Chloride [Ns] 50 ml IV ONCE vancomycin HCL 1,500 mg 0.9 % Sodium Chloride [Ns] 250 ml IV ONCE 05/06/20 14:14 0.9 % Sodium Chloride [Ns] 1,000 ml IVCONT 999 mls/hr 05/06/20 14:24 B Type Natriuretic Peptide Stat Basic Metabolic Panel Stat Complete Blood Count Auto Diff Stat Free T4 (Free Thyroxine) Stat Hemoglobin A1c Stat Lactic Acid Stat Liver Panel Stat Prothrombin Time INR Stat SLIDE REVIEW Stat TSH reflex Free T4 Stat 05/06/20 14:27 Blood Culture X2 [BC] Stat 05/06/20 14:30 Piperacillin Sodium/Tazobactam [Zosyn] 3.375 gm IV .STK-MED ONE 05/06/20 15:43 COVID-19 ID NOW (Barrios) Stat 05/06/20 16:11 UA CC w/rflx Micro + Cult Stat 05/06/20 16:47 Basic Metabolic Panel Stat Transfer Order Routine 05/06/20 16:48 Code Status Routine 05/06/20 16:59 Low Sodium Diet 05/06/20 18:00 Dextrose 5 % [D5w] 1,000 ml IVCONT 75 mls/hr Doxycycline Hyclate [Vibramycin] 100 mg PO Q12H 05/06/20 19:52 Piperacillin Sodium/Tazobactam [Zosyn] 3.375 gm IV .STK-MED ONE 05/06/20 20:00 Piperacillin Sodium/Tazobactam [Zosyn] 3.375 gm 0.9 % Sodium Chloride [Ns] 50 ml IV Q6H 05/06/20 21:56 NT-proBNP Routine 05/07/20 ECG 12 lead EKG Routine 05/07/20 03:14 Piperacillin Sodium/Tazobactam [Zosyn] 3.375 gm IV .STK-MED ONE 05/07/20 03:49 EKG Documentation DIRECTED 05/07/20 04:08 Basic Metabolic Panel Stat Complete Blood Count Auto Diff DAILY@0600 D Dimer Stat SLIDE REVIEW Routine 05/07/20 08:16 Piperacillin Sodium/Tazobactam [Zosyn] 3.375 gm IV .STK-MED ONE 05/07/20 09:00 Dextrose 5 % [D5w] 1,000 ml IVCONT 100 mls/hr Metoprolol Tartrate [Lopressor] 25 mg PO DAILY Tamsulosin HCL [Flomax] 0.4 mg PO DAILY 05/07/20 15:04 Basic Metabolic Panel Routine 05/07/20 15:15 Piperacillin Sodium/Tazobactam [Zosyn] 3.375 gm IV .STK-MED ONE 05/07/20 17:00 Clindamycin Phosphate/D5W [Cleocin] 600 mg in 50 ml IV Q8H 05/07/20 17:49 B Type Natriuretic Peptide Routine 05/07/20 18:30 Clindamycin Phosphate/D5W [Cleocin] 600 mg in 50 ml IV Q8H 05/08/20 05:44 Basic Metabolic Panel DAILY@0600 Complete Blood Count no Diff DAILY@0600 Lactate Dehydrogenase Routine Liver Panel Routine Prothrombin Time INR DAILY@0600 05/08/20 14:09 Basic Metabolic Panel Routine 05/09/20 05:38 Basic Metabolic Panel DAILY@0600 05/10/20 XR chest 1V Urgent 05/10/20 05:34 Basic Metabolic Panel DAILY@0600 Complete Blood Count no Diff DAILY@0600 05/10/20 11:30 B Type Natriuretic Peptide Urgent Venous Blood Gas Urgent 05/10/20 11:41 Venous Blood Gases - POC Routine 05/10/20 20:25 Electrolytes Stat 05/11/20 XR chest 1V Stat XR chest 1V Stat 05/11/20 05:31 Direct Genny (BLANCA) Urgent Basic Metabolic Panel DAILY@0600 Complete Blood Count no Diff DAILY@0600 Fibrinogen Routine Lactate Dehydrogenase Routine Liver Panel Routine Manual Differential Routine Partial Thromboplastin Time Routine Prothrombin Time INR DAILY@0600 05/11/20 07:47 Add Laboratory Test Urgent 05/11/20 08:00 Ammonia Urgent C Reactive Protein Urgent Creatinine Urine Stat Erythrocyte Sedimentation Rate Urgent Reticulocyte Count Urgent Sodium Urine Random Stat 05/11/20 08:46 ABG Urgent 05/11/20 08:58 Arterial Blood Gases - POC Routine 05/11/20 08:59 Furosemide [Lasix] 40 mg IVPUSH ONCE ONE 05/11/20 09:21 Add Laboratory Test Routine 05/11/20 09:30 NON-Behavioral Restraint Q24H 05/11/20 09:35 propofoL [Diprivan] 1,000 mg in 100 ml IVCONT As directed 05/11/20 09:39 CXR [XR chest 1V] Stat 05/11/20 09:47 Sodium Bicarbonate 8.4% 50 meq .ROUTE .STK-MED ONE 05/11/20 09:58 Norepinephrine Bitartrate/NS [Levophed] 8 mg in 250 ml IVCONT As directed 05/11/20 10:26 Transfer Order Routine 05/11/20 11:47 Phenylephrine HCL 1,000 mcg IVPUSH STAT STA Sodium Bicarbonate 8.4% 50 meq IVPUSH ONCE ONE 05/11/20 12:02 Perflutren Lipid Microspheres [Definity] 2.2 mg IVPUSH .STK-MED ONE 05/11/20 12:30 Albumin Human 25 % [Kedbumin 25 %] 100 ml IV Q6H Container,Empty 0 ml Furosemide [Lasix] 500 mg IVCONT 5 mg/hr 05/11/20 12:42 Basic Metabolic Panel Routine Complete Blood Count Auto Diff Routine SLIDE REVIEW Routine Troponin-I High Sensitivity Routine Venous Blood Gas Routine 05/11/20 12:53 Venous Blood Gases - POC Routine 05/11/20 13:18 Ampicillin Sodium/Sulbactam Na [Unasyn] 3 gm .ROUTE .STK-MED ONE 05/11/20 15:00 CA echo transthorac w con Routine 05/11/20 17:32 MRSA Nasal Screen Routine 05/12/20 00:55 Ampicillin Sodium/Sulbactam Na [Unasyn] 3 gm .ROUTE .STK-MED ONE 05/12/20 04:59 Complete Blood Count Auto Diff DAILY@0600 Comprehensive Met. Panel DAILY@0600 Magnesium DAILY@0600 Phosphorus DAILY@0600 SLIDE REVIEW Routine Venous Blood Gas DAILY@0600 05/12/20 05:13 Venous Blood Gases - POC Routine Laboratory Last Values WBC 6.9 X10*3/uL (4.8-10.8) 05/12/20 04:59 RBC 2.62 X10*6/uL (4.60-5.80) L 05/12/20 04:59 Hgb 7.4 g/dl (14.0-18.0) L D 05/12/20 04:59 Hct 24.2 % (42-52) L D 05/12/20 04:59 MCV 92.4 fL (80-98) 05/12/20 04:59 MCH 28.2 pg (27.0-33.0) 05/12/20 04:59 MCHC 30.6 g/dl (31.0-36.0) L 05/12/20 04:59 RDW 15.6 % (11.0-16.0) 05/12/20 04:59 Plt Count 191 X10*3/uL (160-400) 05/12/20 04:59 MPV 12.2 fL (9.4-12.4) 05/12/20 04:59 Immature Gran % (Auto) 0.9 % (0.0-0.4) H 05/12/20 04:59 Neut % (Auto) 80.6 % (45-73) H 05/12/20 04:59 Lymph % (Auto) 6.4 % (20-40) L 05/12/20 04:59 [place] % (Auto) 9.3 % (2-11) 05/12/20 04:59 Eos % (Auto) 2.5 % (0-4) 05/12/20 04:59 Baso % (Auto) 0.3 % (0-2) 05/12/20 04:59 Lymph # (Auto) 0.4 X10*3/uL (1.2-4.9) L 05/12/20 04:59 [place] # (Auto) 0.6 X10*3/uL (0.1-1.2) 05/12/20 04:59 Eos # (Auto) 0.2 X10*3/uL (0.0-0.4) 05/12/20 04:59 Baso # (Auto) 0.0 X10*3/uL (0.0-0.2) 05/12/20 04:59 Abs Immat Gran (auto) 0.06 X10*3/uL (0.00-0.03) H 05/12/20 04:59 Absolute Neuts (auto) 5.5 X10*3/uL (2.0-8.3) 05/12/20 04:59 Absolute Nucleated RBC 0.000 X10*3/uL (0.0-0.012) 05/12/20 04:59 Nucleated RBC % (auto) 0.0 /100WBC (0.0-0.2) 05/12/20 04:59 Neutrophils % (Manual) 78 % (45-73) H 05/11/20 05:31 Band Neutrophils % 10 % (3-5) H 05/11/20 05:31 Lymphocytes % (Manual) 2 % (20-40) L 05/11/20 05:31 Monocytes % (Manual) 9 % (2-11) 05/11/20 05:31 Eosinophils % (Manual) 1 % (0-4) 05/11/20 05:31 Abs Neuts (Manual) 7.4 X10*3/uL (2.2-7.9) 05/11/20 05:31 Lymphocytes # (Manual) 0.2 X10*3/uL (0.6-4.8) L 05/11/20 05:31 Monocytes # (Manual) 0.8 X10*3/uL (0.0-1.2) 05/11/20 05:31 Eosinophils # (Manual) 0.1 X10*3/UL (0.0-0.8) 05/11/20 05:31 Nucleated RBCs 1 /100WBC (0-0) H 05/11/20 05:31 Platelet Estimate SLIGHTLY DECREASED (NORMAL) 05/11/20 05:31 Large Platelets PRESENT 05/11/20 05:31 Plt Morphology Comment NOTED 05/11/20 05:31 RBC Morphology NOTED 05/11/20 05:31 Basophilic Stippling 1+ 05/11/20 05:31 Macrocytosis 1+ 05/11/20 05:31 Ovalocytes 1+ 05/11/20 05:31 Acanthocytes (Spur) 1+ 05/11/20 05:31 Schistocytes 1+ 05/11/20 05:31 Smear Tech's Comments VERIFIED 05/12/20 04:59 Smear Path Review SEE NOTE 05/11/20 05:31 ESR 102 MM/HR (0-15) H 05/11/20 08:00 Absolute Retic 0.038 X10*6/uL (0.026-0.095) 05/11/20 08:00 Percent Retic 1.1 % (0.5-1.8) 05/11/20 08:00 Immature Retic Fraction 18.2 % (2.3-13.4) H 05/11/20 08:00 Retic Hgb Equivalent 24.4 pg (30.0-35.0) L 05/11/20 08:00 PT 13.4 SEC (10.8-13.0) H 05/11/20 05:31 INR 1.1 (0.9-1.1) 05/11/20 05:31 APTT 43.2 SEC (24.1-38.0) H 05/11/20 05:31 Fibrinogen > 700 MG/DL (259-690) H 05/11/20 05:31 D-Dimer 382 NG/ML 05/07/20 04:08 O2 Saturation 96.0 % 05/11/20 08:58 ABG pH at Pt Temp 6.96 (7.35-7.45) L* 05/11/20 08:58 ABG pH (Temp Correct) 6.96 (7.35-7.45) L* 05/11/20 08:58 ABG pCO2 at Pt Temp 133 mmHg (32-45) H* 05/11/20 08:58 ABG pCO2 (Temp Corrct 130 mmHg (32-45) H* 05/11/20 08:58 ABG pO2 at Pt Temp 238 mmHg (83-108) H 05/11/20 08:58 ABG pO2 (Temp Correct 235 (83-108) H 05/11/20 08:58 ABG HCO3 30 mmol/L (22-26) H 05/11/20 08:58 ABG Base Excess (Actual) -4.2 mmol/L 05/11/20 08:58 VBG pH 7.42 (7.32-7.43) 05/12/20 05:13 VBG pCO2 38 mmHg 05/12/20 05:13 VBG pO2 50 mmHg 05/12/20 05:13 VBG HCO3 25 mmol/L (22-26) 05/12/20 05:13 VBG O2 Saturation 80.0 % 05/12/20 05:13 VBG Base Excess 1.0 mmol/L 05/12/20 05:13 Sodium 146 mmol/L (135-145) H 05/12/20 04:59 Potassium 3.9 mmol/L (3.3-5.1) D 05/12/20 04:59 Chloride 107 mmol/L (96-108) 05/12/20 04:59 Carbon Dioxide 25 mmol/L (22-29) 05/12/20 04:59 Anion Gap 18 (12-20) 05/12/20 04:59 BUN 60 mg/dL (9-16) H 05/12/20 04:59 Creatinine 3.34 mg/dL (0.5-1.4) H 05/12/20 04:59 Estim Creat Clear Calc 21.8 05/12/20 04:59 Estimated GFR 18 05/12/20 04:59 Random Glucose 122 mg/dL (60-115) H 05/12/20 04:59 Estimat Average Glucose 137 mg/dL 05/06/20 14:24 Hemoglobin A1c % 6.4 % 05/06/20 14:24 Lactic Acid 0.5 mmol/L (0.5-2.0) 05/06/20 14:24 Calcium 8.2 mg/dL (8.4-10.2) L 05/12/20 04:59 Phosphorus 4.4 mg/dL (2.7-4.5) 05/12/20 04:59 Magnesium 2.7 mg/dL (1.6-2.6) H 05/12/20 04:59 Total Bilirubin 0.8 mg/dL (0.0-1.0) 05/12/20 04:59 Direct Bilirubin 0.4 mg/dL (0.0-0.5) 05/11/20 05:31 AST 42 U/L (5-37) H D 05/12/20 04:59 ALT 56 U/L (0-40) H 05/12/20 04:59 Alkaline Phosphatase 84 U/L (39-117) 05/12/20 04:59 Ammonia 65 umol/L (13-55) H 05/11/20 08:00 Lactate Dehydrogenase 316 U/L (118-273) H 05/11/20 05:31 Troponin I High Sens 114.0 ng/L (<3.5-35.0) H 05/11/20 12:42 C-Reactive Protein 33.92 mg/dL (< or = 0.50) H 05/11/20 08:00 B-Natriuretic Peptide 53 pg/mL (<100) 05/10/20 11:30 NT-Pro-B Natriuret Pep 259 pg/mL H 05/06/20 21:56 Total Protein 6.2 g/dL (6.5-8.0) L 05/12/20 04:59 Albumin 3.5 g/dL (3.5-5.0) 05/12/20 04:59 TSH 4.75 uIU/mL (0.32-4.0) H 05/06/20 14:24 Free T4 1.19 ng/dL (0.71-1.85) 05/06/20 14:24 Urine Color YELLOW 05/11/20 08:00 Urine Appearance CLOUDY 05/11/20 08:00 Urine pH 5.5 (5.0-8.0) 05/11/20 08:00 Ur Specific [place] >= 1.030 (1.005-1.025) H 05/11/20 08:00 Urine Protein 2+ MG/DL (NEG-TRACE) H 05/11/20 08:00 Urine Glucose (UA) NEG MG/DL (NEG) 05/11/20 08:00 Urine Ketones NEG MG/DL (NEG) 05/11/20 08:00 Urine Blood 3+ (NEG) H 05/11/20 08:00 Urine Nitrite NEG (NEG) 05/11/20 08:00 Ur Leukocyte Esterase NEG (NEG) 05/11/20 08:00 Urine RBC 15-29 /HPF (0) H 05/11/20 08:00 Urine WBC 0 /HPF (0-4) 05/11/20 08:00 Ur Squamous Epith Cells 1+ /LPF 05/11/20 08:00 Amorphous Sediment 3+ /LPF 05/11/20 08:00 Urine Bacteria NONE /LPF 05/11/20 08:00 Granular Casts 1-4 /LPF 05/11/20 08:00 Urine Mucus 1+ /LPF 05/11/20 08:00 Ur Random Sodium 21.0 mmol/L 05/11/20 08:00 Urine Creatinine 205.21 mg/dL 05/11/20 08:00 Nasal Screen MRSA (PCR) NEGATIVE (Negative) 05/11/20 17:32 Nasal S. aureus Screen NEGATIVE (Negative) 05/11/20 17:32 Nasal MRSA/S.aureus Interp SEE NOTE 05/11/20 17:32 COVID-19 (ANGELA) Negative (Negative) 05/06/20 15:43 COVID-19 Clin Com See Note 05/06/20 15:43 Direct Antiglob Test TNP 05/11/20 05:31 BLANCA, Polyspecific NEGATIVE 05/11/20 05:31 - Imaging Radiologist's impression: ITS Impressions Chest X-Ray 05/06/20 14:12 IMPRESSION: Mild linear markings at the right lung base have the appearance of atelectasis or scarring. No acute cardiopulmonary process. Head CT 05/06/20 17:09 IMPRESSION: No acute intracranial pathology. Chest X-Ray 05/06/20 21:43 IMPRESSION: Some new ill-defined patchy densities in both lungs. Chest X-Ray 05/10/20 11:04 IMPRESSION: Low lung volumes. Subsegmental atelectasis adjacent to minor fissure and right base. Chest X-Ray 05/11/20 05:15 IMPRESSION: Increasing bibasilar opacities which may reflect atelectasis or consolidation, in association with small pleural effusions. Chest X-Ray 05/11/20 09:39 IMPRESSION: Left basilar infiltrate/atelectasis. New enteric tube and new endotracheal tube are in satisfactory position. Chest X-Ray 05/11/20 11:30 IMPRESSION: New right jugular central line tip is in proximal to mid SVC. Rest of support lines and catheters are stable. There is prominent pulmonary vascularity Bandlike atelectasis right upper midlung. Left lower lobe infiltrate/atelectasis suspected. Progress Note: A/P - Time Spent With Patient Total time spent is greater than 50% in coordination of care (as documented) at patient's floor/unit and/or counseling patient: less than 15 minutes
[2020-05-12 13:21] LABS: Venous Blood Gas Refer to POC result
[2020-05-12 13:22] LABS: VBG Base Excess 0.2 mmol/L; VBG HCO3 27 mmol/L (22-26); VBG pCO2 57 mmHg; VBG pH 7.28 (7.32-7.43); VBG pO2 67 mmHg
[2020-05-12] MEDS: propofoL 200 MG/20 ML VIAL 50 MG IVPUSH (13:35)
--- NOTE | 2020-05-12 13:42 | W.PM.CCHP ---
Procedures Intubation Intubation Comments: Patient emergently intubated for acute hypoxic respiratory failure, likely secondary to another aspiration event with cuffed 7.5 ET tube under glide scope guidance with no immediate complications. X-ray for ET tube position is pending. Consent for Procedure: Emergent-no informed consent obtained Sedative: propofol Mg given: 50 Laryngoscope: fiber optic video scope ET tube size: 7.5 ET tube uncuffed: No Tube secured depth (cm): 25 Tube secured location: lips Tube placement confirmation: visualized tube passing through cords, equal breath sounds bilaterally, no breath sounds over epigastrium and confirmation by capnometry Patient tolerated procedure: no complications Intubation complications: none
--- NOTE | 2020-05-12 15:57 | P.PNNP_ITS ---
Subjective Subjective Date of Service: 05/12/20 Interval history: 7Seen and examined. Events noted Physical Exam Vital Signs: Vital Signs: Last Vital Signs Temp 95.2 F L 05/12/20 15:00 Pulse 40 L 05/12/20 15:01 Resp 20 05/12/20 15:00 BP 133/58 L 05/12/20 15:01 Pulse Ox 99 05/12/20 15:00 Body Mass Index 40.1 Cardio: Jugular venous distension: no JVD Extrem: General: Yes pedal edema Objective Data Labs CBC & Chem 7: 05/12/20 04:59 05/12/20 04:59 Labs: Laboratory Results - last 24 hr 05/11/20 05/12/20 05/12/20 17:32 04:59 04:59 WBC 6.9 RBC 2.62 L Hgb 7.4 L D Hct 24.2 L D MCV 92.4 MCH 28.2 MCHC 30.6 L RDW 15.6 Plt Count 191 MPV 12.2 Immature Gran % (Auto) 0.9 H Neut % (Auto) 80.6 H Lymph % (Auto) 6.4 L [place] % (Auto) 9.3 Eos % (Auto) 2.5 Baso % (Auto) 0.3 Lymph # (Auto) 0.4 L [place] # (Auto) 0.6 Eos # (Auto) 0.2 Baso # (Auto) 0.0 Abs Immat Gran (auto) 0.06 H Absolute Neuts (auto) 5.5 Absolute Nucleated RBC 0.000 Nucleated RBC % (auto) 0.0 Smear Tech's Comments VERIFIED VBG pH VBG pCO2 VBG pO2 VBG HCO3 VBG O2 Saturation VBG Base Excess Sodium 146 H Potassium 3.9 D Chloride 107 Carbon Dioxide 25 Anion Gap 18 BUN 60 H Creatinine 3.34 H Estim Creat Clear Calc 21.8 Estimated GFR 18 Random Glucose 122 H Calcium 8.2 L Phosphorus 4.4 Magnesium 2.7 H Total Bilirubin 0.8 AST 42 H D ALT 56 H Alkaline Phosphatase 84 Total Protein 6.2 L Albumin 3.5 Nasal Screen MRSA (PCR) NEGATIVE Nasal S. aureus Screen NEGATIVE Nasal MRSA/S.aureus Interp SEE NOTE 05/12/20 05/12/20 05:13 13:15 WBC RBC Hgb Hct MCV MCH MCHC RDW Plt Count MPV Immature Gran % (Auto) Neut % (Auto) Lymph % (Auto) [place] % (Auto) Eos % (Auto) Baso % (Auto) Lymph # (Auto) [place] # (Auto) Eos # (Auto) Baso # (Auto) Abs Immat Gran (auto) Absolute Neuts (auto) Absolute Nucleated RBC Nucleated RBC % (auto) Smear Tech's Comments VBG pH 7.42 7.28 L VBG pCO2 38 57 VBG pO2 50 67 VBG HCO3 25 27 H VBG O2 Saturation 80.0 87.0 VBG Base Excess 1.0 0.2 Sodium Potassium Chloride Carbon Dioxide Anion Gap BUN Creatinine Estim Creat Clear Calc Estimated GFR Random Glucose Calcium Phosphorus Magnesium Total Bilirubin AST ALT Alkaline Phosphatase Total Protein Albumin Nasal Screen MRSA (PCR) Nasal S. aureus Screen Nasal MRSA/S.aureus Interp Microbiology Microbiology Results: Microbiology 05/06/20 14:27 Blood - Venous Blood Culture - Final No growth after 5 days. 05/06/20 14:24 Blood - Venous Blood Culture - Final No growth after 5 days. Assessment & Plan Assessment and plan (1) Cellulitis: Problem details: resolved Status: Acute Assessment and Plan: 74 year old man with history of CHF and hypothyroidism admitted with acute encephalopathy related to dehydration and cellulitis and noted renal dysfunc and hyperNa Now decomp resp status req inutbation 1. Non-Oliguric JETT: grad furhter incr SCr noted;sepsis assoc ATNand a risk prog to point of possibly needing HD in next 24-48 hrs 2. CKD 3b: bsl SCr 2.0; etiol unlcear but its been longstanding; UA unremarkable; suspecty age related vs HTN nephrosclerosis 3.. HyperNa:SNa impoved with IVF ; still most c/w poor po intake; doubt DI given UOP is not impressive 4.. cellulitis 5, Rsp failure: on vent 6. Sepsis REC: cont to track UOP and renal func; avoid NToxins; optimize hemodyanamics/resp as per ICU team will follow with team Time Spent With Patient Time: Total time spent is greater than 50% in coordination of care (as documented) at patient's floor/unit and/or counseling patient:
[2020-05-12] MEDS: Heparin Sodium,Porcine 5,000 UNIT/ML VIAL 5000 UNIT SUBCUT (17:30)
[2020-05-13] VITALS (28 sets, daily range): BP systolic 95–142; BP diastolic 31–59; PULSE 42–58; RESP 20; TEMP 35.4–36.6; O2SAT 90–95; BMI 39.2
[2020-05-13] MEDS: Heparin Sodium,Porcine 5,000 UNIT/ML VIAL 5000 UNIT SUBCUT ×2 (04:03→18:17)
[2020-05-13] MEDS: Ampicillin Sodium/Sulbactam Na 3 GM in 0.9 % Sodium Chloride 100 ML IV ×2 (04:03→13:38)
[2020-05-13] MEDS: propofoL 1,000 MG/100 ML VIAL 19.71 MG IVCONT ×5 (04:04→22:53)
[2020-05-13 05:48] LABS: Basophils Percent Auto 0.3 % (0-2); Eosinophils Absolute Auto 0.4 X10*3/uL (0.0-0.4); Eosinophils Percent Auto 4.4 % (0-4); Hematocrit 24.2 % (42-52); Hemoglobin 7.6 g/dl (14.0-18.0); Imm Gran Abs Auto 0.05 X10*3/uL (0.00-0.03); Imm Gran Pct Auto 0.6 % (0.0-0.4); Lymphocytes Absolute Auto 0.3 X10*3/uL (1.2-4.9); Lymphocytes Percent Auto 3.7 % (20-40); MANUAL DIFF FLAG SCAN; Mean Corpuscular HGB Conc 31.4 g/dl (31.0-36.0); Mean Corpuscular Hemoglobin 28.8 pg (27.0-33.0); Mean Corpuscular Volume 91.7 fL (80-98); Mean Platelet Volume 11.5 fL (9.4-12.4); Monocytes Absolute Auto 0.5 X10*3/uL (0.1-1.2); Monocytes Percent Auto 5.6 % (2-11); Neutrophils Absolute Auto 7.7 X10*3/uL (2.0-8.3); Neutrophils Percent Auto 85.4 % (45-73); Platelet Count 253 X10*3/uL (160-400); Red Blood Count 2.64 X10*6/uL (4.60-5.80); Red Cell Distribution Width 15.9 % (11.0-16.0); SCAN SMEAR FLAG 1
[2020-05-13 05:49] LABS: VBG Base Excess -1.1 mmol/L; VBG HCO3 22 mmol/L (22-26); VBG pCO2 34 mmHg; VBG pH 7.42 (7.32-7.43); VBG pO2 70 mmHg
[2020-05-13 05:59] LABS: Venous Blood Gas Refer to POC result
[2020-05-13 06:18] LABS: SLIDE REVIEW VERIFIED
[2020-05-13 06:23] LABS: Alanine Aminotransferase 53 U/L (0-40); Albumin Level 3.3 g/dL (3.5-5.0); Alkaline Phosphatase 84 U/L (39-117); Anion Gap 19 (12-20); Aspartate Amino Transferase 37 U/L (5-37); Bilirubin Total 0.7 mg/dL (0.0-1.0); Blood Urea Nitrogen 66 mg/dL (9-16); Calcium 8.2 mg/dL (8.4-10.2); Carbon Dioxide 24 mmol/L (22-29); Chloride 109 mmol/L (96-108); Creatinine Clr Calc Pharmacy 21.8; Estimated Glomerular Filt Rate 18; Glucose Random 113 mg/dL (60-115); Magnesium 2.7 mg/dL (1.6-2.6); Phosphorus 4.1 mg/dL (2.7-4.5); Potassium 3.7 mmol/L (3.3-5.1); Sodium 148 mmol/L (135-145)
[2020-05-13] MEDS: Famotidine/PF 20 MG/2 ML VIAL IVPUSH (08:09)
[2020-05-13] MEDS: 0.9 % Sodium Chloride Flush 3 ML SYRINGE IVFLUSH ×3 (08:09→22:54)
[2020-05-13] MEDS: Chlorhexidine Gluc Oral Rinse 15 ML MOUTHWASH BUCCAL ×3 (08:09→22:06)
[2020-05-13] MEDS: Levothyroxine Sodium 125 MCG TABLET PO (08:09)
[2020-05-13] MEDS: Nystatin Powder 15 GM BOTTLE 1 APPL TOPICAL ×3 (08:10→22:05)
[2020-05-13] MEDS: Betamethasone Dip Aug 0.05% Cr 15 GM TUBE 1 APPL TOPICAL ×2 (08:10→22:05)
[2020-05-13] MEDS: propofoL 1,000 MG/100 ML VIAL 32.85 MG IVCONT (10:34)
--- NOTE | 2020-05-13 11:49 | PM.CCPN ---
Subjective Subjective Date of Service: 05/13/20 Interval History: ICU day 3 for acute hypoxic and hypercapnic respiratory failure, pulmonary aspiration, CO2 retention, encephalopathy, diastolic dysfunction, and acute renal failure. 74-year-old gentleman, recent 50+ pack-year smoker, with underlying COPD, congestive heart failure, hypothyroidism admitted on 05/06/2020 with confusion, hypothermia, and hypoxemia. He has been admitted to [facility] and treated for aspiration pneumonia, bilateral lower extremity cellulitis, and was being worked up for acute metabolic encephalopathy. Overnight 05/10-05/11/2020 secondary to increasing oxygen requirementshe was placed on 15 L nasal cannula and was saturating 100%. At that time he was noted to be a extremely lethargic. Arterial blood gas obtained late in the morning on 05/11/2020 demonstrated acute respiratory acidosis. Patient had CO2 narcosis and pulmonary aspiration requiring intubation, ventilatory support. He was transferred to intensive care unit, and required vasopressor support, and bedside bronchoscopy for secretion clearance. He has been extubated on 05/12/2020, however required re-intubation the same days secondary to recurrent pulmonary aspiration resulting in hypoxic and hypercapnic respiratory failure. No events overnight. Physical Exam Vital Signs: Vital Signs: Last Vital Signs Temp 97.2 F 05/13/20 11:00 Pulse 42 L 05/13/20 11:00 Resp 20 05/13/20 11:00 BP 138/38 L 05/13/20 11:00 Pulse Ox 94 05/13/20 11:00 Body Mass Index 39.2 Const: General: no acute distress and other (Sedated on the vent) Nutritional Appearance: obese Eyes: Sclerae: sclerae normal EOM: EOMs intact bilaterally Neck: Neck: Yes no lymphadenopathy, Yes trachea midline and Yes supple Resp: Auscultation: crackles (Right basilar) Cardio: Rate: regular rate Rhythm: regular rhythm Heart sounds: no gallops, no murmurs and no rubs GI: Palpation (GI): Soft to palpation and Other GI palpation findings present ( Nontender) Auscultation: normal bowel sounds Extrem: General: No clubbing, No cyanosis and Yes pedal edema (1+ bilateral) Objective Data Labs CBC & Chem 7: 05/13/20 05:35 05/13/20 05:35 Labs: Laboratory Results - last 24 hr 05/11/20 05/12/20 05/13/20 17:32 13:15 05:35 WBC 9.0 RBC 2.64 L Hgb 7.6 L Hct 24.2 L MCV 91.7 MCH 28.8 MCHC 31.4 RDW 15.9 Plt Count 253 D MPV 11.5 Immature Gran % (Auto) 0.6 H Neut % (Auto) 85.4 H Lymph % (Auto) 3.7 L [place] % (Auto) 5.6 Eos % (Auto) 4.4 H Baso % (Auto) 0.3 Lymph # (Auto) 0.3 L [place] # (Auto) 0.5 Eos # (Auto) 0.4 Baso # (Auto) 0.0 Abs Immat Gran (auto) 0.05 H Absolute Neuts (auto) 7.7 Absolute Nucleated RBC 0.000 Nucleated RBC % (auto) 0.0 Smear Tech's Comments VERIFIED VBG pH 7.28 L VBG pCO2 57 VBG pO2 67 VBG HCO3 27 H VBG O2 Saturation 87.0 VBG Base Excess 0.2 Sodium Potassium Chloride Carbon Dioxide Anion Gap BUN Creatinine Estim Creat Clear Calc Estimated GFR Random Glucose Calcium Phosphorus Magnesium Total Bilirubin AST ALT Alkaline Phosphatase Total Protein Albumin Nasal Screen MRSA (PCR) NEGATIVE Nasal S. aureus Screen NEGATIVE Nasal MRSA/S.aureus Interp SEE NOTE 05/13/20 05/13/20 05:35 05:41 WBC RBC Hgb Hct MCV MCH MCHC RDW Plt Count MPV Immature Gran % (Auto) Neut % (Auto) Lymph % (Auto) [place] % (Auto) Eos % (Auto) Baso % (Auto) Lymph # (Auto) [place] # (Auto) Eos # (Auto) Baso # (Auto) Abs Immat Gran (auto) Absolute Neuts (auto) Absolute Nucleated RBC Nucleated RBC % (auto) Smear Tech's Comments VBG pH 7.42 VBG pCO2 34 VBG pO2 70 VBG HCO3 22 VBG O2 Saturation 91.0 VBG Base Excess -1.1 Sodium 148 H Potassium 3.7 Chloride 109 H Carbon Dioxide 24 Anion Gap 19 BUN 66 H Creatinine 3.30 H Estim Creat Clear Calc 21.8 Estimated GFR 18 Random Glucose 113 Calcium 8.2 L Phosphorus 4.1 Magnesium 2.7 H Total Bilirubin 0.7 AST 37 ALT 53 H Alkaline Phosphatase 84 Total Protein 6.0 L Albumin 3.3 L Nasal Screen MRSA (PCR) Nasal S. aureus Screen Nasal MRSA/S.aureus Inter Microbiology Microbiology Results: Microbiology 05/06/20 14:27 Blood - Venous Blood Culture - Final No growth after 5 days. 05/06/20 14:24 Blood - Venous Blood Culture - Final No growth after 5 days. Progress Note: A&P Assessment and plan (1) Pulmonary aspiration: Status: Acute Assessment and Plan: Assessment: 74-year-old gentleman with underlying obesity, congestive heart failure, COPD admitted with confusion, hypothermia, and hypoxemia with hospital course complicated by acute renal failure, acute hypercapnic respiratory failure, and pulmonary aspiration. Plan: Neuro: Metabolic encephalopathy with CO2 narcosis, resolved. But still with significant depressed mental start, will obtain MRI brain. Cardiac: Acute on chronic congestive heart failure. 2D echocardiogram with diastolic dysfunction and elevated filling pressures. Continue with diuresis. Pulmonary: Acute hypercapnic respiratory failure secondary to CO2 retention/CO2 narcosis with of pulmonary aspiration component resulting in aspiration pneumonitis versus pneumonia requiring ventilatory support and bronchoscopic clearance. Continue to titrate off ventilatory support as tolerated. Renal: Acute renal failure, cardiorenal versus AIN. Nephrology service care appreciated. Non oliguric. Continue to monitor urine output and renal indices. Poor response to high-dose Lasix, will try Bumex with Diuril augmentation. Endo: No acute issues. Underlying history of hypothyroidism. GI: No acute issues. ID: Pulmonary aspiration with resultant aspiration pneumonia versus aspiration pneumonitis. Empirically covered with Unasyn. No evidence of bilateral lower extremity cellulitis - chronic venous stasis dermatitis changes. Heme/Onc: No acute issues. Psych: No acute issues. Miscellaneous: No acute issues. Prophylaxis: Heparin, famotidine Diet: Tube feeds Critical care time spent: 60 minutes (2) Acute renal failure: Status: Acute (3) Acute respiratory failure with hypercapnia: Status: Acute (4) Encephalopathy: Status: Acute (5) Diastolic heart failure: Status: Acute (6) Obesity: Status: Acute Time Spent With Patient Total time spent with greater than 50% in coordination of care (as documented) at patient's floor/unit and/or counseling patient:: 0 Critical Care Time Critical Care Time (minutes): 60
[2020-05-13] MEDS: Bumetanide 1 MG/4 ML VIAL 2 MG IVPUSH ×2 (12:30→22:06)
[2020-05-13] MEDS: Chlorothiazide Sodium 500 MG VIAL 1000 MG IVPUSH (13:56)
--- NOTE | 2020-05-13 15:50 | P.PNHO_ITS ---
Medical Summary - Medical Summary Date of Service: 05/13/20 Medical Summary: DIAGNOSIS: 1. ANEMIA. 2. THROMBOCYTOPENIA. 3. CKD. 4. QUESTION OF TTP. Interval History Interval history: His renal function continues a decline. His hematocrit has dropped to 24%. Review of Systems - Neurologic Reports system reviewed and no additional complaints, except as documented [facility] Medical History: Medical History (Last Reviewed 05/07/20 @ 16:44 by Marissa Castellanos MD) CHF (congestive heart failure) Diabetes HTN (hypertension) Hypothyroidism Functional capacity: uses cane/walker Family history: reviewed and not pertinent Social History: Social History (Last Reviewed 05/07/20 @ 16:44 by Marissa Castellanos MD) Living Situation History: Household Members: Spouse Housing: House Do you presently have visiting nurse or other home services: No Alcohol History: Unable to assess alcohol history related to: Unable to respond Alcohol intake: unknown Tobacco History: Smoking Status: Unknown if ever smoked Substance Use History: Use of substances other than those prescribed or required for medical reasons : Unknown Currently Displaying Signs/Symptoms of Drug Intoxication Withdrawal: No Advance Directives: Advance Directives: No Advance Directives Information Provided: No Homicidal Assessment: Do you have thoughts of harming others: None Do you have a plan to hurt others: No Plan Nutrition Assessment: Recently lost weight without trying: Unsure Nutrition Risks: Difficulty chewing Nutrition Risks: Difficulty swallowing Patient : No Occupation Assessmet: service: No Current occupational status: retired Smoking status: Unknown if ever smoked Home Medications and Allergies Current Medications: Current Medications Generic Name Dose Route Start Last Admin Trade Name Freq PRN Reason Stop Dose Admin Acetaminophen 650 mg 05/06/20 16:58 Acetaminophen 325 Mg Tablet PO Q6H PRN Pain, Mild (Pain Scale 1-3) Albuterol/Ipratropium 3 ml 05/06/20 17:13 Albuterol/Iprat 2.5/0.5mg 3 Ml Ampul.Neb INHALE RQ4H PRN Wheezing Betamethasone Dipropion Augmented 1 appl 05/07/20 21:00 05/13/20 08:10 Betamethasone Dip Aug 0.05% Cr 15 Gm Tube TOPICAL 1 appl BID COSME Administration Protocol Bumetanide 2 mg 05/13/20 12:15 05/13/20 12:30 Bumetanide 1 Mg/4 Ml Vial IVPUSH 2 mg BID COSME Administration Protocol Chlorhexidine Gluconate 15 ml 05/11/20 15:00 05/13/20 13:40 Chlorhexidine Gluc Oral Rinse 15 Ml Mouthwash BUCCAL 15 ml TID COSME Administration Famotidine 20 mg 05/12/20 09:00 05/13/20 08:09 Famotidine/Pf 20 Mg/2 Ml Vial IVPUSH 20 mg DAILY COSME Administration Heparin Sodium (Porcine) 5,000 unit 05/06/20 18:00 05/13/20 04:03 Heparin Sodium,Porcine 5,000 Unit/Ml Vial SUBCUT 5,000 unit Q12H COSME Administration Propofol 1,000 mg in 100 mls @ 0 mls/hr 05/11/20 11:15 05/13/20 14:06 Diprivan IVCONT 30 mcg/kg/min .Q0M COSME 19.71 mls/hr Administration Protocol Per Protocol Norepinephrine Bitartrate 8 mg in 250 mls @ 0 mls/hr 05/11/20 11:15 05/13/20 14:01 Levophed IVCONT 0.03 mcg/kg/min .Q0M COSME 6.16 mls/hr Titration Protocol Per Protocol Ampicillin Sodium/Sulbactam 100 mls @ 200 mls/hr 05/11/20 14:00 05/13/20 14:08 Sodium 3 gm/ Sodium Chloride IV Infused Q12H COSME Infusion Levothyroxine Sodium 125 mcg 05/07/20 09:00 05/13/20 08:09 Levothyroxine Sodium 125 Mcg Tablet PO 125 mcg DAILY COSME Administration Nystatin 1 appl 05/07/20 09:00 05/13/20 15:36 Nystatin Powder 15 Gm Bottle TOPICAL 1 appl TID COSME Administration Protocol Ondansetron HCl 4 mg 05/06/20 16:58 Ondansetron Hcl 4 Mg/2 Ml Vial IVPUSH Q8H PRN Nausea and Vomiting Sodium Chloride 3 ml 05/07/20 00:00 05/13/20 15:36 0.9 % Sodium Chloride Flush 3 Ml Syringe IVFLUSH 3 ml QSHIFT COSME Administration Home Medications Medication Instructions Recorded Confirmed Type furosemide 1 tab PO TID 05/06/20 05/06/20 History levothyroxine 1 tab PO DAILY 05/06/20 05/06/20 History metoprolol tartrate 1 tab PO DAILY 05/06/20 05/06/20 History spironolactone 1 tab PO BID 05/06/20 05/06/20 History tamsulosin 1 cap PO DAILY 05/06/20 05/06/20 History Allergies Allergy/AdvReac Type Severity Reaction Status Date / Time No Known Allergies Allergy Unknown NONE Unverified 11/17/19 14:44 Exam Vital signs: Vital Signs Temp 96.1 F L 05/13/20 15:00 Pulse 45 L 05/13/20 15:00 Resp 20 05/13/20 15:00 BP 123/45 L 05/13/20 15:00 Pulse Ox 94 05/13/20 15:00 Intake & Output 05/12/20 05/13/20 05/13/20 17:59 06:59 18:59 Intake Total 717.244 / 717.244 Output Total 935 / 935 Balance -217.756 / -217.756 Urine Output (Average ml/kg/hr) 0.73 Intake: Intake, Oral Amount Intake, Tube Feeding Amount 60 / 60 Intake, Tube Irrigant Amount 300 / 300 Intake, IV Amount 357.244 / 357.244 Albumin Human 25 % 100 ml @ 100 mls/hr IV Q6H COSME Rx#: [id number] Ampicillin Sodium/Sulbactam Na 100 / 100 3 gm In 0.9 % Sodium Chloride 100 ml @ 200 mls/hr IV Q12H COSME Rx#:[id number] Norepinephrine Bitartrate/NS 8 57.464 / 57.464 mg In 250 ml @ Per Protocol IVCONT .Q0M COSME Rx#:[id number] propofoL 1,000 mg In 100 ml @ 199.780 / 199.780 Per Protocol IVCONT .Q0M COSME Rx #:[id number] Output: Output, Urine Amount (Catheter) 935 / 935 Urethral 935 / 935 Other: Weight [place] Weight in Grams Weight 107 kg Body Mass Index 39.2 - Constitutional Present: no acute distress, mild distress - Routine HEENT Exam Head: Present: normal inspection - Routine Respiratory Exam Present: decreased breath sounds, CTAB - Routine Cardiovascular Exam Cardiovascular: Present: RRR, S1, S2 - Routine Abdominal Exam Present: nontender - Routine Skin Exam Present: intact - Routine Neurological Exam Present: alert, altered mental status Data - Labs CBC & Chem 7: 05/13/20 05:35 05/13/20 05:35 Labs: 05/06/20 CT head/brain wo con Stat XR chest 1V Stat 05/06/20 12:44 Midazolam HCl/PF [Versed] 2 mg .ROUTE .STK-MED ONE 05/06/20 14:12 ECG 12 lead EKG Stat EKG Documentation DIRECTED XR chest 1V Stat 0.9 % Sodium Chloride [Ns] 1,000 ml IVCONT 999 mls/hr Piperacillin Sodium/Tazobactam [Zosyn] 3.375 gm 0.9 % Sodium Chloride [Ns] 50 ml IV ONCE vancomycin HCL 1,500 mg 0.9 % Sodium Chloride [Ns] 250 ml IV ONCE 05/06/20 14:14 0.9 % Sodium Chloride [Ns] 1,000 ml IVCONT 999 mls/hr 05/06/20 14:24 B Type Natriuretic Peptide Stat Basic Metabolic Panel Stat Complete Blood Count Auto Diff Stat Free T4 (Free Thyroxine) Stat Hemoglobin A1c Stat Lactic Acid Stat Liver Panel Stat Prothrombin Time INR Stat SLIDE REVIEW Stat TSH reflex Free T4 Stat 05/06/20 14:27 Blood Culture X2 [BC] Stat 05/06/20 14:30 Piperacillin Sodium/Tazobactam [Zosyn] 3.375 gm IV .STK-MED ONE 05/06/20 15:43 COVID-19 ID NOW (Barrios) Stat 05/06/20 16:11 UA CC w/rflx Micro + Cult Stat 05/06/20 16:47 Basic Metabolic Panel Stat Transfer Order Routine 05/06/20 16:48 Code Status Routine 05/06/20 16:59 Low Sodium Diet 05/06/20 18:00 Dextrose 5 % [D5w] 1,000 ml IVCONT 75 mls/hr Doxycycline Hyclate [Vibramycin] 100 mg PO Q12H 05/06/20 19:52 Piperacillin Sodium/Tazobactam [Zosyn] 3.375 gm IV .STK-MED ONE 05/06/20 20:00 Piperacillin Sodium/Tazobactam [Zosyn] 3.375 gm 0.9 % Sodium Chloride [Ns] 50 ml IV Q6H 05/06/20 21:56 NT-proBNP Routine 05/07/20 ECG 12 lead EKG Routine 05/07/20 03:14 Piperacillin Sodium/Tazobactam [Zosyn] 3.375 gm IV .STK-MED ONE 05/07/20 03:49 EKG Documentation DIRECTED 05/07/20 04:08 Basic Metabolic Panel Stat Complete Blood Count Auto Diff DAILY@0600 D Dimer Stat SLIDE REVIEW Routine 05/07/20 08:16 Piperacillin Sodium/Tazobactam [Zosyn] 3.375 gm IV .STK-MED ONE 05/07/20 09:00 Dextrose 5 % [D5w] 1,000 ml IVCONT 100 mls/hr Metoprolol Tartrate [Lopressor] 25 mg PO DAILY Tamsulosin HCL [Flomax] 0.4 mg PO DAILY 05/07/20 15:04 Basic Metabolic Panel Routine 05/07/20 15:15 Piperacillin Sodium/Tazobactam [Zosyn] 3.375 gm IV .STK-MED ONE 05/07/20 17:00 Clindamycin Phosphate/D5W [Cleocin] 600 mg in 50 ml IV Q8H 05/07/20 17:49 B Type Natriuretic Peptide Routine 05/07/20 18:30 Clindamycin Phosphate/D5W [Cleocin] 600 mg in 50 ml IV Q8H 05/08/20 05:44 Basic Metabolic Panel DAILY@0600 Complete Blood Count no Diff DAILY@0600 Lactate Dehydrogenase Routine Liver Panel Routine Prothrombin Time INR DAILY@0600 05/08/20 14:09 Basic Metabolic Panel Routine 05/09/20 05:38 Basic Metabolic Panel DAILY@0600 05/10/20 XR chest 1V Urgent 05/10/20 05:34 Basic Metabolic Panel DAILY@0600 Complete Blood Count no Diff DAILY@0600 05/10/20 11:30 B Type Natriuretic Peptide Urgent Venous Blood Gas Urgent 05/10/20 11:41 Venous Blood Gases - POC Routine 05/10/20 20:25 Electrolytes Stat 05/11/20 XR chest 1V Stat XR chest 1V Stat 05/11/20 05:31 Direct Genny (BLANCA) Urgent Basic Metabolic Panel DAILY@0600 Complete Blood Count no Diff DAILY@0600 Fibrinogen Routine Lactate Dehydrogenase Routine Liver Panel Routine Manual Differential Routine Partial Thromboplastin Time Routine Prothrombin Time INR DAILY@0600 05/11/20 07:47 Add Laboratory Test Urgent 05/11/20 08:00 Ammonia Urgent C Reactive Protein Urgent Creatinine Urine Stat Erythrocyte Sedimentation Rate Urgent Reticulocyte Count Urgent Sodium Urine Random Stat 05/11/20 08:46 ABG Urgent 05/11/20 08:58 Arterial Blood Gases - POC Routine 05/11/20 08:59 Furosemide [Lasix] 40 mg IVPUSH ONCE ONE 05/11/20 09:21 Add Laboratory Test Routine 05/11/20 09:30 NON-Behavioral Restraint Q24H 05/11/20 09:35 propofoL [Diprivan] 1,000 mg in 100 ml IVCONT As directed 05/11/20 09:39 CXR [XR chest 1V] Stat 05/11/20 09:47 Sodium Bicarbonate 8.4% 50 meq .ROUTE .STK-MED ONE 05/11/20 09:58 Norepinephrine Bitartrate/NS [Levophed] 8 mg in 250 ml IVCONT As directed 05/11/20 10:26 Transfer Order Routine 05/11/20 11:47 Phenylephrine HCL 1,000 mcg IVPUSH STAT STA Sodium Bicarbonate 8.4% 50 meq IVPUSH ONCE ONE 05/11/20 12:02 Perflutren Lipid Microspheres [Definity] 2.2 mg IVPUSH .STK-MED ONE 05/11/20 12:30 Albumin Human 25 % [Kedbumin 25 %] 100 ml IV Q6H Container,Empty 0 ml Furosemide [Lasix] 500 mg IVCONT 5 mg/hr 05/11/20 12:42 Basic Metabolic Panel Routine Complete Blood Count Auto Diff Routine SLIDE REVIEW Routine Troponin-I High Sensitivity Routine Venous Blood Gas Routine 05/11/20 12:53 Venous Blood Gases - POC Routine 05/11/20 13:18 Ampicillin Sodium/Sulbactam Na [Unasyn] 3 gm .ROUTE .STK-MED ONE 05/11/20 15:00 CA echo transthorac w con Routine 05/11/20 17:32 MRSA Nasal Screen Routine 05/12/20 00:55 Ampicillin Sodium/Sulbactam Na [Unasyn] 3 gm .ROUTE .STK-MED ONE 05/12/20 04:59 Complete Blood Count Auto Diff DAILY@0600 Comprehensive Met. Panel DAILY@0600 Magnesium DAILY@0600 Phosphorus DAILY@0600 SLIDE REVIEW Routine Venous Blood Gas DAILY@0600 05/12/20 05:13 Venous Blood Gases - POC Routine Laboratory Last Values WBC 6.9 X10*3/uL (4.8-10.8) 05/12/20 04:59 RBC 2.62 X10*6/uL (4.60-5.80) L 05/12/20 04:59 Hgb 7.4 g/dl (14.0-18.0) L D 05/12/20 04:59 Hct 24.2 % (42-52) L D 05/12/20 04:59 MCV 92.4 fL (80-98) 05/12/20 04:59 MCH 28.2 pg (27.0-33.0) 05/12/20 04:59 MCHC 30.6 g/dl (31.0-36.0) L 05/12/20 04:59 RDW 15.6 % (11.0-16.0) 05/12/20 04:59 Plt Count 191 X10*3/uL (160-400) 05/12/20 04:59 MPV 12.2 fL (9.4-12.4) 05/12/20 04:59 Immature Gran % (Auto) 0.9 % (0.0-0.4) H 05/12/20 04:59 Neut % (Auto) 80.6 % (45-73) H 05/12/20 04:59 Lymph % (Auto) 6.4 % (20-40) L 05/12/20 04:59 [place] % (Auto) 9.3 % (2-11) 05/12/20 04:59 Eos % (Auto) 2.5 % (0-4) 05/12/20 04:59 Baso % (Auto) 0.3 % (0-2) 05/12/20 04:59 Lymph # (Auto) 0.4 X10*3/uL (1.2-4.9) L 05/12/20 04:59 [place] # (Auto) 0.6 X10*3/uL (0.1-1.2) 05/12/20 04:59 Eos # (Auto) 0.2 X10*3/uL (0.0-0.4) 05/12/20 04:59 Baso # (Auto) 0.0 X10*3/uL (0.0-0.2) 05/12/20 04:59 Abs Immat Gran (auto) 0.06 X10*3/uL (0.00-0.03) H 05/12/20 04:59 Absolute Neuts (auto) 5.5 X10*3/uL (2.0-8.3) 05/12/20 04:59 Absolute Nucleated RBC 0.000 X10*3/uL (0.0-0.012) 05/12/20 04:59 Nucleated RBC % (auto) 0.0 /100WBC (0.0-0.2) 05/12/20 04:59 Neutrophils % (Manual) 78 % (45-73) H 05/11/20 05:31 Band Neutrophils % 10 % (3-5) H 05/11/20 05:31 Lymphocytes % (Manual) 2 % (20-40) L 05/11/20 05:31 Monocytes % (Manual) 9 % (2-11) 05/11/20 05:31 Eosinophils % (Manual) 1 % (0-4) 05/11/20 05:31 Abs Neuts (Manual) 7.4 X10*3/uL (2.2-7.9) 05/11/20 05:31 Lymphocytes # (Manual) 0.2 X10*3/uL (0.6-4.8) L 05/11/20 05:31 Monocytes # (Manual) 0.8 X10*3/uL (0.0-1.2) 05/11/20 05:31 Eosinophils # (Manual) 0.1 X10*3/UL (0.0-0.8) 05/11/20 05:31 Nucleated RBCs 1 /100WBC (0-0) H 05/11/20 05:31 Platelet Estimate SLIGHTLY DECREASED (NORMAL) 05/11/20 05:31 Large Platelets PRESENT 05/11/20 05:31 Plt Morphology Comment NOTED 05/11/20 05:31 RBC Morphology NOTED 05/11/20 05:31 Basophilic Stippling 1+ 05/11/20 05:31 Macrocytosis 1+ 05/11/20 05:31 Ovalocytes 1+ 05/11/20 05:31 Acanthocytes (Spur) 1+ 05/11/20 05:31 Schistocytes 1+ 05/11/20 05:31 Smear Tech's Comments VERIFIED 05/12/20 04:59 Smear Path Review SEE NOTE 05/11/20 05:31 ESR 102 MM/HR (0-15) H 05/11/20 08:00 Absolute Retic 0.038 X10*6/uL (0.026-0.095) 05/11/20 08:00 Percent Retic 1.1 % (0.5-1.8) 05/11/20 08:00 Immature Retic Fraction 18.2 % (2.3-13.4) H 05/11/20 08:00 Retic Hgb Equivalent 24.4 pg (30.0-35.0) L 05/11/20 08:00 PT 13.4 SEC (10.8-13.0) H 05/11/20 05:31 INR 1.1 (0.9-1.1) 05/11/20 05:31 APTT 43.2 SEC (24.1-38.0) H 05/11/20 05:31 Fibrinogen > 700 MG/DL (259-690) H 05/11/20 05:31 D-Dimer 382 NG/ML 05/07/20 04:08 O2 Saturation 96.0 % 05/11/20 08:58 ABG pH at Pt Temp 6.96 (7.35-7.45) L* 05/11/20 08:58 ABG pH (Temp Correct) 6.96 (7.35-7.45) L* 05/11/20 08:58 ABG pCO2 at Pt Temp 133 mmHg (32-45) H* 05/11/20 08:58 ABG pCO2 (Temp Corrct 130 mmHg (32-45) H* 05/11/20 08:58 ABG pO2 at Pt Temp 238 mmHg (83-108) H 05/11/20 08:58 ABG pO2 (Temp Correct 235 (83-108) H 05/11/20 08:58 ABG HCO3 30 mmol/L (22-26) H 05/11/20 08:58 ABG Base Excess (Actual) -4.2 mmol/L 05/11/20 08:58 VBG pH 7.42 (7.32-7.43) 05/12/20 05:13 VBG pCO2 38 mmHg 05/12/20 05:13 VBG pO2 50 mmHg 05/12/20 05:13 VBG HCO3 25 mmol/L (22-26) 05/12/20 05:13 VBG O2 Saturation 80.0 % 05/12/20 05:13 VBG Base Excess 1.0 mmol/L 05/12/20 05:13 Sodium 146 mmol/L (135-145) H 05/12/20 04:59 Potassium 3.9 mmol/L (3.3-5.1) D 05/12/20 04:59 Chloride 107 mmol/L (96-108) 05/12/20 04:59 Carbon Dioxide 25 mmol/L (22-29) 05/12/20 04:59 Anion Gap 18 (12-20) 05/12/20 04:59 BUN 60 mg/dL (9-16) H 05/12/20 04:59 Creatinine 3.34 mg/dL (0.5-1.4) H 05/12/20 04:59 Estim Creat Clear Calc 21.8 05/12/20 04:59 Estimated GFR 18 05/12/20 04:59 Random Glucose 122 mg/dL (60-115) H 05/12/20 04:59 Estimat Average Glucose 137 mg/dL 05/06/20 14:24 Hemoglobin A1c % 6.4 % 05/06/20 14:24 Lactic Acid 0.5 mmol/L (0.5-2.0) 05/06/20 14:24 Calcium 8.2 mg/dL (8.4-10.2) L 05/12/20 04:59 Phosphorus 4.4 mg/dL (2.7-4.5) 05/12/20 04:59 Magnesium 2.7 mg/dL (1.6-2.6) H 05/12/20 04:59 Total Bilirubin 0.8 mg/dL (0.0-1.0) 05/12/20 04:59 Direct Bilirubin 0.4 mg/dL (0.0-0.5) 05/11/20 05:31 AST 42 U/L (5-37) H D 05/12/20 04:59 ALT 56 U/L (0-40) H 05/12/20 04:59 Alkaline Phosphatase 84 U/L (39-117) 05/12/20 04:59 Ammonia 65 umol/L (13-55) H 05/11/20 08:00 Lactate Dehydrogenase 316 U/L (118-273) H 05/11/20 05:31 Troponin I High Sens 114.0 ng/L (<3.5-35.0) H 05/11/20 12:42 C-Reactive Protein 33.92 mg/dL (< or = 0.50) H 05/11/20 08:00 B-Natriuretic Peptide 53 pg/mL (<100) 05/10/20 11:30 NT-Pro-B Natriuret Pep 259 pg/mL H 05/06/20 21:56 Total Protein 6.2 g/dL (6.5-8.0) L 05/12/20 04:59 Albumin 3.5 g/dL (3.5-5.0) 05/12/20 04:59 TSH 4.75 uIU/mL (0.32-4.0) H 05/06/20 14:24 Free T4 1.19 ng/dL (0.71-1.85) 05/06/20 14:24 Urine Color YELLOW 05/11/20 08:00 Urine Appearance CLOUDY 05/11/20 08:00 Urine pH 5.5 (5.0-8.0) 05/11/20 08:00 Ur Specific [place] >= 1.030 (1.005-1.025) H 05/11/20 08:00 Urine Protein 2+ MG/DL (NEG-TRACE) H 05/11/20 08:00 Urine Glucose (UA) NEG MG/DL (NEG) 05/11/20 08:00 Urine Ketones NEG MG/DL (NEG) 05/11/20 08:00 Urine Blood 3+ (NEG) H 05/11/20 08:00 Urine Nitrite NEG (NEG) 05/11/20 08:00 Ur Leukocyte Esterase NEG (NEG) 05/11/20 08:00 Urine RBC 15-29 /HPF (0) H 05/11/20 08:00 Urine WBC 0 /HPF (0-4) 05/11/20 08:00 Ur Squamous Epith Cells 1+ /LPF 05/11/20 08:00 Amorphous Sediment 3+ /LPF 05/11/20 08:00 Urine Bacteria NONE /LPF 05/11/20 08:00 Granular Casts 1-4 /LPF 05/11/20 08:00 Urine Mucus 1+ /LPF 05/11/20 08:00 Ur Random Sodium 21.0 mmol/L 05/11/20 08:00 Urine Creatinine 205.21 mg/dL 05/11/20 08:00 Nasal Screen MRSA (PCR) NEGATIVE (Negative) 05/11/20 17:32 Nasal S. aureus Screen NEGATIVE (Negative) 05/11/20 17:32 Nasal MRSA/S.aureus Interp SEE NOTE 05/11/20 17:32 COVID-19 (ANGELA) Negative (Negative) 05/06/20 15:43 COVID-19 Clin Com See Note 05/06/20 15:43 Direct Antiglob Test TNP 05/11/20 05:31 BLANCA, Polyspecific NEGATIVE 05/11/20 05:31 - Imaging Radiologist's impression: ITS Impressions Chest X-Ray 05/06/20 14:12 IMPRESSION: Mild linear markings at the right lung base have the appearance of atelectasis or scarring. No acute cardiopulmonary process. Head CT 05/06/20 17:09 IMPRESSION: No acute intracranial pathology. Chest X-Ray 05/06/20 21:43 IMPRESSION: Some new ill-defined patchy densities in both lungs. Chest X-Ray 05/10/20 11:04 IMPRESSION: Low lung volumes. Subsegmental atelectasis adjacent to minor fissure and right base. Chest X-Ray 05/11/20 05:15 IMPRESSION: Increasing bibasilar opacities which may reflect atelectasis or consolidation, in association with small pleural effusions. Chest X-Ray 05/11/20 09:39 IMPRESSION: Left basilar infiltrate/atelectasis. New enteric tube and new endotracheal tube are in satisfactory position. Chest X-Ray 05/11/20 11:30 IMPRESSION: New right jugular central line tip is in proximal to mid SVC. Rest of support lines and catheters are stable. There is prominent pulmonary vascularity Bandlike atelectasis right upper midlung. Left lower lobe infiltrate/atelectasis suspected. Chest X-Ray 05/12/20 14:26 FINDINGS / IMPRESSION: Endotracheal tube terminates 5.3 cm above the emilie. Right internal jugular central venous catheter terminates within the mid SVC. Enteric tube courses below the diaphragm. Cardiomegaly. Pulmonary venous congestion. Bilateral patchy lower lung airspace opacities, more pronounced at left lung base. Brain MRI 05/13/20 11:20 IMPRESSION: - There are nonspecific T2 signal changes involving the internal capsules bilaterally, surrounding the putamen bilaterally, involving the splenium of the corpus callosum, and extending into the arceo radiata bilaterally. Consider postcontrast imaging for further assessment in light of the history of encephalopathy. Differential considerations include toxic/metabolic, infectious, inflammatory, and a variety of alternative etiologies. - There is lack of FLAIR CSF suppression within multiple cerebral sulci likely corresponding to vessels which could be indicative of slow arterial flow for which a CTA of the head would be helpful in further assessment. - A partially imaged disc protrusion at C4-C5 results in potential significant mass effect on the cervical spinal cord and severe central canal stenosis that can be further assessed with a cervical spine MRI if there is cervical myelopathy clinically. Progress Note: A/P (1) Anemia Start date: 05/13/20 (He remains very ill. Recommend daily cbc and red cell transfusion of two units.) Status: Acute - Time Spent With Patient Total time spent is greater than 50% in coordination of care (as documented) at patient's floor/unit and/or counseling patient: 15 - 24 minutes
--- NOTE | 2020-05-13 18:51 | P.PNNP_ITS ---
Subjective Subjective Date of Service: 05/13/20 Interval history: seen and examined. Events noted Physical Exam Vital Signs: Vital Signs: Last Vital Signs Temp 96.6 F L 05/13/20 18:00 Pulse 53 05/13/20 18:00 Resp 20 05/13/20 18:00 BP 122/48 L 05/13/20 18:00 Pulse Ox 93 05/13/20 18:00 Body Mass Index 39.2 Const: Other: Constitutional : Obtunded, not responsive, sleeping , on vent Neck : Normal inspection, Supple Cardiovascular : RRR, S1 S2, no lower extremity edema Respiratory : Decrease a forced and bilateral air entry, bilateral basal crackles, wheezes or rhonchi Gastrointestinal: soft, lax, Normal bowel sounds, Non tender Skin : Warm/Dry, No rash Neurological : Obtunded, moving all extremities, open eyes to stimuli and follow simple commands, No other focal deficit General: cooperative, no acute distress and other (Sedated on the vent) Nutritional Appearance: obese HENMT: Head: Yes normal to inspection Mouth: Normal oral and palatal mucosa present Eyes: General: appearance normal, both eyes and all related structures Sclerae: sclerae normal EOM: EOMs intact bilaterally Neck: Neck: Yes no lymphadenopathy, Yes trachea midline and Yes supple Resp: Effort & Inspection: normal respiratory effort and no respiratory distress Auscultation: clear to auscultation bilaterally and crackles (Right basilar) Cardio: Other: Constitutional : Obtunded, not responsive, sleeping , on vent Neck : Normal inspection, Supple Cardiovascular : RRR, S1 S2, no lower extremity edema Respiratory : Decrease a forced and bilateral air entry, bilateral basal crackles, wheezes or rhonchi Gastrointestinal: soft, lax, Normal bowel sounds, Non tender Skin : Warm/Dry, No rash Neurological : Obtunded, moving all extremities, open eyes to stimuli and follow simple commands, No other focal deficit Jugular venous distension: no JVD Rate: regular rate Rhythm: regular rhythm Heart sounds: no gallops, no murmurs and no rubs GI: Palpation (GI): Soft to palpation, nontender and Other GI palpation findings present ( Nontender) Auscultation: normal bowel sounds Skin: Other: bilateral venous stasis changes,chronic legs General skin exam: no rashes or lesions noted Lesions: lesion noted and other (ulcer bekah and redness) Extrem: Other: slight decreased erythema legs General: No clubbing, No cyanosis, Yes pedal edema (1+ bilateral) and Yes venous stasis dermatitis (Bilateral lower extremity) Objective Data Labs CBC & Chem 7: 05/13/20 05:35 05/13/20 05:35 Labs: Laboratory Results - last 24 hr 05/13/20 05/13/20 05/13/20 05:35 05:35 05:41 WBC 9.0 RBC 2.64 L Hgb 7.6 L Hct 24.2 L MCV 91.7 MCH 28.8 MCHC 31.4 RDW 15.9 Plt Count 253 D MPV 11.5 Immature Gran % (Auto) 0.6 H Neut % (Auto) 85.4 H Lymph % (Auto) 3.7 L [place] % (Auto) 5.6 Eos % (Auto) 4.4 H Baso % (Auto) 0.3 Lymph # (Auto) 0.3 L [place] # (Auto) 0.5 Eos # (Auto) 0.4 Baso # (Auto) 0.0 Abs Immat Gran (auto) 0.05 H Absolute Neuts (auto) 7.7 Absolute Nucleated RBC 0.000 Nucleated RBC % (auto) 0.0 Smear Tech's Comments VERIFIED VBG pH 7.42 VBG pCO2 34 VBG pO2 70 VBG HCO3 22 VBG O2 Saturation 91.0 VBG Base Excess -1.1 Sodium 148 H Potassium 3.7 Chloride 109 H Carbon Dioxide 24 Anion Gap 19 BUN 66 H Creatinine 3.30 H Estim Creat Clear Calc 21.8 Estimated GFR 18 Random Glucose 113 Calcium 8.2 L Phosphorus 4.1 Magnesium 2.7 H Total Bilirubin 0.7 AST 37 ALT 53 H Alkaline Phosphatase 84 Total Protein 6.0 L Albumin 3.3 L Microbiology Microbiology Results: Microbiology 05/06/20 14:27 Blood - Venous Blood Culture - Final No growth after 5 days. 05/06/20 14:24 Blood - Venous Blood Culture - Final No growth after 5 days. Assessment & Plan Assessment and plan (1) Cellulitis: Problem details: resolved Status: Acute Assessment and Plan: 74 year old man with history of CHF and hypothyroidism admitted with acute encephalopathy related to dehydration and cellulitis and noted renal dysfunc and hyperNa Now decomp resp status req inutbation 1. Non-Oliguric JETT: grad furhter incr SCr noted;sepsis assoc ATN and a risk pr og to point of possibly needing HD in next 24-48 hrs 2. CKD 3b: bsl SCr 2.0; etiol unlcear but its been longstanding; UA unremarkable; suspecty age related vs HTN nephrosclerosis 3.. HyperNa: still most c/w poor po intake; doubt DI given UOP is not impressive 4.. cellulitis 5, Rsp failure: on vent 6. Sepsis REC: cont to replace FW deficit; cont to track UOP and renal func; avoid NToxins; optimize hemodyanamics/resp as per ICU team will follow with team Time Spent With Patient Time: Total time spent is greater than 50% in coordination of care (as documented) at patient's floor/unit and/or counseling patient:
[2020-05-14] VITALS (30 sets, daily range): BP systolic 92–142; BP diastolic 36–65; PULSE 49–79; RESP 14–22; TEMP 36.5–37.5; O2SAT 22–95; BMI 39.9
--- NOTE | 2020-05-14 | EEG_ITS ---
The waking background activity consists of a moderate voltage, 4 to 6 hertz theta seen diffusely, intermixed anteriorly with muscle artifact. Intermittent low voltage 3 hertz delta waves are seen over both hemispheres. Photic stimulation and hyperventilation are omitted. No paroxysmal discharges seen. IMPRESSION: This is a moderately abnormal EEG due to diffuse background slowing consistent with a diffuse encephalopathic process. No epileptiform discharges seen. MD ANDRIY Cook/LANAL / [id number]
[2020-05-14] MEDS: Ampicillin Sodium/Sulbactam Na 3 GM in 0.9 % Sodium Chloride 100 ML IV ×2 (01:30→13:01)
[2020-05-14] MEDS: propofoL 1,000 MG/100 ML VIAL 19.71 MG IVCONT ×2 (03:25→08:28)
[2020-05-14] MEDS: Heparin Sodium,Porcine 5,000 UNIT/ML VIAL 5000 UNIT SUBCUT ×2 (05:28→18:07)
[2020-05-14 05:29] LABS: VBG Base Excess 0.1 mmol/L; VBG HCO3 23 mmol/L (22-26); VBG pCO2 33 mmHg; VBG pH 7.45 (7.32-7.43); VBG pO2 49 mmHg
[2020-05-14 05:33] LABS: Venous Blood Gas Refer to POC result
[2020-05-14 05:57] LABS: Basophils Percent Auto 0.5 % (0-2); Eosinophils Absolute Auto 0.4 X10*3/uL (0.0-0.4); Eosinophils Percent Auto 5.3 % (0-4); Hematocrit 25.9 % (42-52); Hemoglobin 8.2 g/dl (14.0-18.0); Imm Gran Abs Auto 0.05 X10*3/uL (0.00-0.03); Imm Gran Pct Auto 0.6 % (0.0-0.4); Lymphocytes Absolute Auto 0.3 X10*3/uL (1.2-4.9); Lymphocytes Percent Auto 3.9 % (20-40); MANUAL DIFF FLAG SCAN; Mean Corpuscular HGB Conc 31.7 g/dl (31.0-36.0); Mean Corpuscular Hemoglobin 28.7 pg (27.0-33.0); Mean Corpuscular Volume 90.6 fL (80-98); Mean Platelet Volume 11.6 fL (9.4-12.4); Monocytes Absolute Auto 0.4 X10*3/uL (0.1-1.2); Neutrophils Absolute Auto 6.9 X10*3/uL (2.0-8.3); Neutrophils Percent Auto 84.7 % (45-73); Platelet Count 349 X10*3/uL (160-400); Red Blood Count 2.86 X10*6/uL (4.60-5.80); Red Cell Distribution Width 15.7 % (11.0-16.0); SCAN SMEAR FLAG 1; White Blood Count 8.2 X10*3/uL (4.8-10.8)
[2020-05-14 06:14] LABS: Ammonia 32 umol/L (13-55)
[2020-05-14 06:25] LABS: SLIDE REVIEW VERIFIED
[2020-05-14 06:34] LABS: Alanine Aminotransferase 47 U/L (0-40); Albumin Level 3.3 g/dL (3.5-5.0); Alkaline Phosphatase 97 U/L (39-117); Anion Gap 17 (12-20); Aspartate Amino Transferase 29 U/L (5-37); Bilirubin Total 0.6 mg/dL (0.0-1.0); Blood Urea Nitrogen 64 mg/dL (9-16); Calcium 8.3 mg/dL (8.4-10.2); Carbon Dioxide 27 mmol/L (22-29); Chloride 106 mmol/L (96-108); Creatinine Clr Calc Pharmacy 22.5; Estimated Glomerular Filt Rate 19; Glucose Random 173 mg/dL (60-115); Magnesium 2.7 mg/dL (1.6-2.6); Phosphorus 4.1 mg/dL (2.7-4.5); Potassium 3.4 mmol/L (3.3-5.1); Sodium 147 mmol/L (135-145); Total Protein 6.3 g/dL (6.5-8.0)
[2020-05-14] MEDS: 0.9 % Sodium Chloride Flush 3 ML SYRINGE IVFLUSH ×2 (08:17→15:19)
[2020-05-14] MEDS: Levothyroxine Sodium 125 MCG TABLET PO (08:17)
[2020-05-14] MEDS: Bumetanide 1 MG/4 ML VIAL 2 MG IVPUSH ×2 (08:17→21:03)
[2020-05-14] MEDS: Famotidine/PF 20 MG/2 ML VIAL IVPUSH (08:17)
[2020-05-14] MEDS: Chlorhexidine Gluc Oral Rinse 15 ML MOUTHWASH BUCCAL ×3 (08:17→21:09)
[2020-05-14] MEDS: Betamethasone Dip Aug 0.05% Cr 15 GM TUBE 1 APPL TOPICAL ×2 (08:18→21:33)
[2020-05-14] MEDS: Nystatin Powder 15 GM BOTTLE 1 APPL TOPICAL ×3 (08:18→21:33)
--- NOTE | 2020-05-14 10:48 | MHC.CLN ---
F/U PT RECEIVING TF JEVITY AT MAX GOAL RATE 50CC/HR WITH 240CC Q 6HRS PROVIDES 1272KCALS (1792KCALS WITH SEDATION; 29KCALS/KG BASED ON IBW), 53G PROTEIN (.85G/KG), 1962CC TOTAL WATER FROM FORMULA AND FLUSHES 32CC/KG) MONITOR TOLERANCE, RESIDUALS AND LYTES
[2020-05-14 11:54] LABS: Glucose, Whole Blood 205 mg/dL (60-115)
[2020-05-14] MEDS: Insulin Lispro 100 UNIT/ML 3 ML VIAL SUBCUT ×2 (12:55→18:06)
[2020-05-14 13:47] LABS: Myeloperoxidase Antibody <1.0 AI; Proteinase 3 PR3 Antibodies <1.0 AI
--- NOTE | 2020-05-14 14:25 | MHC.CM.PN ---
Pt remains intubated in ICU: waiting for Neuro eval and review of MRI. Plans for extubation will follow per MD. Family updated on status: discussed STR - family not interested at this time: would like to wait for better functional assessment determination. CM to follow
--- NOTE | 2020-05-14 14:39 | P.PNNP_ITS ---
Subjective Subjective Date of Service: 05/14/20 Interval history: seen and examined. Events noted Physical Exam Vital Signs: Vital Signs: Last Vital Signs Temp 99.1 F 05/14/20 14:00 Pulse 60 05/14/20 14:00 Resp 20 05/14/20 14:00 BP 127/49 L 05/14/20 14:00 Pulse Ox 94 05/14/20 14:00 Body Mass Index 39.9 Const: Other: Constitutional : Obtunded, not responsive, sleeping , on vent Neck : Normal inspection, Supple Cardiovascular : RRR, S1 S2, no lower extremity edema Respiratory : Decrease a forced and bilateral air entry, bilateral basal crackles, wheezes or rhonchi Gastrointestinal: soft, lax, Normal bowel sounds, Non tender Skin : Warm/Dry, No rash Neurological : Obtunded, moving all extremities, open eyes to stimuli and follow simple commands, No other focal deficit General: cooperative, no acute distress and other (Sedated on the vent) Nutritional Appearance: obese HENMT: Head: Yes normal to inspection Mouth: Normal oral and palatal mucosa present Eyes: General: appearance normal, both eyes and all related structures Sclerae: sclerae normal EOM: EOMs intact bilaterally Neck: Neck: Yes no lymphadenopathy, Yes trachea midline and Yes supple Resp: Effort & Inspection: normal respiratory effort and no respiratory distress Auscultation: clear to auscultation bilaterally and crackles (Right basilar) Cardio: Other: Constitutional : Obtunded, not responsive, sleeping , on vent Neck : Normal inspection, Supple Cardiovascular : RRR, S1 S2, no lower extremity edema Respiratory : Decrease a forced and bilateral air entry, bilateral basal crackles, wheezes or rhonchi Gastrointestinal: soft, lax, Normal bowel sounds, Non tender Skin : Warm/Dry, No rash Neurological : Obtunded, moving all extremities, open eyes to stimuli and follow simple commands, No other focal deficit Jugular venous distension: no JVD Rate: regular rate Rhythm: regular rhythm Heart sounds: no gallops, no murmurs and no rubs GI: Palpation (GI): Soft to palpation, nontender and Other GI palpation findings present ( Nontender) Auscultation: normal bowel sounds Skin: Other: bilateral venous stasis changes,chronic legs General skin exam: no rashes or lesions noted Lesions: lesion noted and other (ulcer bekah and redness) Extrem: Other: slight decreased erythema legs General: No clubbing, No cyanosis, Yes pedal edema (1+ bilateral) and Yes venous stasis dermatitis (Bilateral lower extremity) Objective Data Labs CBC & Chem 7: 05/14/20 05:20 05/14/20 05:20 Labs: Laboratory Results - last 24 hr 05/11/20 05/14/20 05/14/20 08:00 05:20 05:20 WBC 8.2 RBC 2.86 L Hgb 8.2 L Hct 25.9 L MCV 90.6 MCH 28.7 MCHC 31.7 RDW 15.7 Plt Count 349 D MPV 11.6 Immature Gran % (Auto) 0.6 H Neut % (Auto) 84.7 H Lymph % (Auto) 3.9 L [place] % (Auto) 5.0 Eos % (Auto) 5.3 H Baso % (Auto) 0.5 Lymph # (Auto) 0.3 L [place] # (Auto) 0.4 Eos # (Auto) 0.4 Baso # (Auto) 0.0 Abs Immat Gran (auto) 0.05 H Absolute Neuts (auto) 6.9 Absolute Nucleated RBC 0.000 Nucleated RBC % (auto) 0.0 Smear Tech's Comments VERIFIED VBG pH VBG pCO2 VBG pO2 VBG HCO3 VBG O2 Saturation VBG Base Excess Sodium 147 H Potassium 3.4 Chloride 106 Carbon Dioxide 27 Anion Gap 17 BUN 64 H Creatinine 3.22 H Estim Creat Clear Calc 22.5 Estimated GFR 19 POC Glucose Random Glucose 173 H D Calcium 8.3 L Phosphorus 4.1 Magnesium 2.7 H Total Bilirubin 0.6 AST 29 ALT 47 H Alkaline Phosphatase 97 Ammonia Total Protein 6.3 L Albumin 3.3 L Proteinase 3 (PR3) Ab <1.0 Myeloperoxidase Ab <1.0 05/14/20 05/14/20 05/14/20 05:20 05:22 11:50 WBC RBC Hgb Hct MCV MCH MCHC RDW Plt Count MPV Immature Gran % (Auto) Neut % (Auto) Lymph % (Auto) [place] % (Auto) Eos % (Auto) Baso % (Auto) Lymph # (Auto) [place] # (Auto) Eos # (Auto) Baso # (Auto) Abs Immat Gran (auto) Absolute Neuts (auto) Absolute Nucleated RBC Nucleated RBC % (auto) Smear Tech's Comments VBG pH 7.45 H VBG pCO2 33 VBG pO2 49 VBG HCO3 23 VBG O2 Saturation 79.0 VBG Base Excess 0.1 Sodium Potassium Chloride Carbon Dioxide Anion Gap BUN Creatinine Estim Creat Clear Calc Estimated GFR POC Glucose 205 H Random Glucose Calcium Phosphorus Magnesium Total Bilirubin AST ALT Alkaline Phosphatase Ammonia 32 Total Protein Albumin Proteinase 3 (PR3) Ab Myeloperoxidase Ab Microbiology Microbiology Results: Microbiology 05/06/20 14:27 Blood - Venous Blood Culture - Final No growth after 5 days. 05/06/20 14:24 Blood - Venous Blood Culture - Final No growth after 5 days. Assessment & Plan Assessment and plan (1) Cellulitis: Problem details: resolved Status: Acute Assessment and Plan: 74 year old man with history of CHF and hypothyroidism admitted with acute encephalopathy related to dehydration and cellulitis and noted renal dysfunc and hyperNa Now decomp resp status req inutbation 1. Non-Oliguric JETT: grad furhter incr SCr noted;sepsis assoc ATN and a risk prog to point of possibly needing HD in next 24-48 hrs 2. CKD 3b: bsl SCr 2.0; etiol unlcear but its been longstanding; UA unremarkable; suspecty age related vs HTN nephrosclerosis 3.. HyperNa: still most c/w poor po intake; doubt DI given UOP is not impressive 4.. cellulitis 5, Rsp failure: on vent 6. Sepsis REC: no indication for dialysis yet but will cont to track closley; cont to replace FW deficit; cont to track UOP and renal func; avoid NToxins; optimize hemodyanamics/resp as per ICU team will follow with team Time Spent With Patient Time: Total time spent is greater than 50% in coordination of care (as documented) at patient's floor/unit and/or counseling patient:
[2020-05-14 18:07] LABS: Glucose, Whole Blood 165 mg/dL (60-115)
--- NOTE | 2020-05-14 18:30 | PC.NURSE ---
MRI COMPLETED YESTERDAY AND EEG COMPLETETED TODAY. PROPOFOL TUNED OFF AT 1000 TODAY. PT REMAINS UNABLE TO FOLLOW COMMANDS, ONLY SQUEEZES EYELIDS TIGHTLY SHUT WITH CARE.AFEBRILE, VSS, LEVOPHED GTT AT 0.06 MCG/KG/MIN. VENT SETTINGS AC 20 TV 550 PEPP 5 FI02 24%. COPIOUS INLINE AND ORAL SECRETIONS. TUBE FEED AT MAX RATE OF 50 WITH Q2HR FWF 240ML, TOLERATING WELL. TIERNEY WNL. BM X 2, MESA AND PASTY. BATHED, BARRIER CREAM APPLIED, AIRLOSS AND PREVALON MATTRESS UTILIZED WITH PILLOWS AND WEDGES, BOOTIES, PINK FOAMS, NYSTATIN AND BETAMETHASOME USED. PTS BEDSIDE TO VISIT, SPOKE WITH THIS RN AND MD. ALSO UPDATED THROUGHOUT SHIFT.
[2020-05-14 20:01] LABS: Haptoglobin 245 mg/dL (43-212)
--- NOTE | 2020-05-14 20:10 | P.PNCC_ITS ---
Subjective Subjective Date of Service: 05/14/20 Interval History: Mr. Lozano was admitted to ICU on May 11 [facility] of acute hypercarbic resp failure, likely 2? aspiration. The patient is a 74 yo male with PMHx of DM, HTN, long time smoker, CHF, CKD (39/2.1 in 2018), and Hypothyroidism. He has chronic wounds on his legs for unclear reasons. According to the patient?s , he was managing his wounds by himself at home. On May 06, the patient?s called EMS bec of altered MS. According to EMS and the patient, he was sent to the emergency room by request of the patient's 's bec she believed that he?d been altered for the previous 5-10 days. In the ED, the patient was oriented X 3 and neurologically intact according to the ED physician, but the hospitalist thought he was confused. He denied any complaints. He was hypothermic to 92.6? however. Both of his lower legs had venous stasis changes and looked cellulitic. WBC was normal. Na was 149, BUN/creat were 50/2.2. CXR and head CT showed NAD. He was treated with fluids and antibiotics. He was admitted to medicine and given Zosyn and doxycycline. He remained largely obtunded, thought 2? metabolic encephalopathy. No blood gasses were done. Blood cultures were negative. Antibiotics were changed to clindamycin at the suggestion of ID. Overnight on May 10, the patient became hypoxemic. That morning May 11, chest x-ray for the 1st time showed significant bibasilar ill-defined infiltrate s. Later that morning, an ABG showed severe hypercarbia. The patient was therefore intubated and tx to ICU, where he subsequently required bronchoscopy for refractory hypoxemia with heavy tracheal secretion burden that was unable to be cleared out by in-line suction. The patient was extubated on 05/12/2020, however required re-intubation the same day secondary to recurrent pulmonary aspiration resulting in hypoxic and hypercapnic respiratory failure. ECHO on May 12 showed: - Normal left ventricular size and systolic function, w moderately increased left ventricular wall thickness. EF 60-65%. - Elevated filling pressures. - Mildly increased RV cavity size, w normal RV systolic function. - IVC is dilated w <50% inspiratory collapse. On exam today, the propofol has been off for > 10 hours, and at best he?s opening his eyes just slightly, maybe ? cm. No response to command, no purpos eful interaction, no response to confrontation. He clearly grimaces to pain, and has all printing services coordinator intact. No gross neuro focality. See Vital Signs below. On Levophed 0.06ug. He was breathing over the set ventilator rate and dissynchronous, so we changed him to PSV. Did not tolerated that (rapid shallow breathing), despite PSV set up to 26cm. So we switched him to BiLevel. On BiLevel 16, pressures 26/8, PSV 24/35%, RR is 16 (after ? mg Dilaudid), Vt is 520cc, Ve is 7.7L, ETCO2 34, Sat 95%. No JVD at 30?. Chest is CTA with normal exp phase. Abdomen has good BS, benign. No significant edema. Mult sores and abrasions on his arms and legs. Both lower legs still erythematous, not significantly improved from admission as far as I can tell from looking at his admission photos. CURRENT MEDICATIONS include: Unasyn Betamethasone topical Bumex 2 mg IV bid Pepcid 20 mg daily Heparin 5000 units Q12h Insulin SQ sliding scale Levothyroxine LABORATORY DATA: As below. Notably, Na is 147, BUN/creat 64/3.2, phos 4.1. IMAGING: Brain MRI on May 13 showed: - There are nonspecific T2 signal changes involving the internal capsules bilaterally, surrounding the putamen bilaterally, involving the splenium of the corpus callosum, and extending into the arceo radiata bilaterally. Consider postcontrast imaging for further assessment in light of the history of encephalopathy. Differential considerations include toxic/metabolic, infectious, inflammatory, and a variety of alternative etiologies. - There is lack of FLAIR CSF suppression within multiple cerebral sulci, likely corresponding to vessels which could be indicative of slow arterial flow for which a CTA of the head would be helpful in further assessment. - A partially imaged disc protrusion at C4-C5 results in potential significant mass effect on the cervical spinal cord and severe central canal stenosis that can be further assessed with a cervical spine MRI if there is cervical myelopathy clinically. IMPRESSION: 1. Underlying obesity, congestive heart failure, COPD 2. Obtundation. Etiology still undiscovered. Discussed the MRI with Dr. Mojica from radiology. He suggests a contrast MRI, plus C-spine. Awaiting a call back from Dr. Kaminski to further discuss the MRI. EEG is pending 3. Acute on chronic congestive heart failure, with right heart failure, by 2D echo. 4. Acute hypercapnic respiratory failure. Serum bicarb levels were normal on admission, which is inconsistent with chronic CO2 retention. A venous blood gas done 05/10 showed normal pCO2. What accounted for his sudden hypercarbia the next morning, 05/11, is unclear. (He did not get any opiates.) Most likely 2? aspiration, as shown by the CXR. 5. Acute renal failure. Undoubtedly has cardiorenal syndrome. When acute resp failure occurs in patients with RHF and acute renal failure, the mortality rate is very high. RHF will limit the amount he can be diuresed. He?s got no JVD or signif edema, and his renal indices are rising. So it?s time to stop the diuretics. 6. DM. Continue insulin SQ sliding scale. 7. Underlying history of hypothyroidism. 8. ID: Pulmonary aspiration with resultant aspiration pneumonia. Empirically covered with Unasyn. Not at all clear that he has lower extremity cellulitis. More likely has chronic venous stasis dermatitis changes. Prognosis is guarded. The main issue is his mental status. Awaiting d/w Dr. Kaminski. Spoke to his today at length at the bedside and updated her on condition and plan. Critical care time (including in depth chart rev, multiple conversations with Dr. Warren, and hosp course summary): 90+ min Physical Exam Vital Signs: Vital Signs: Last Vital Signs Temp 99.1 F 05/14/20 19:49 Pulse 57 05/14/20 19:49 Resp 20 05/14/20 19:49 BP 126/45 L 05/14/20 19:49 Pulse Ox 92 05/14/20 19:49 Body Mass Index 39.9 Objective Data Labs CBC & Chem 7: 05/14/20 05:20 05/14/20 05:20 Labs: Laboratory Results - last 24 hr 05/11/20 05/11/20 05/14/20 08:00 08:00 05:20 WBC 8.2 RBC 2.86 L Hgb 8.2 L Hct 25.9 L MCV 90.6 MCH 28.7 MCHC 31.7 RDW 15.7 Plt Count 349 D MPV 11.6 Immature Gran % (Auto) 0.6 H Neut % (Auto) 84.7 H Lymph % (Auto) 3.9 L [place] % (Auto) 5.0 Eos % (Auto) 5.3 H Baso % (Auto) 0.5 Lymph # (Auto) 0.3 L [place] # (Auto) 0.4 Eos # (Auto) 0.4 Baso # (Auto) 0.0 Abs Immat Gran (auto) 0.05 H Absolute Neuts (auto) 6.9 Absolute Nucleated RBC 0.000 Nucleated RBC % (auto) 0.0 Smear Tech's Comments VERIFIED Haptoglobin 245 H VBG pH VBG pCO2 VBG pO2 VBG HCO3 VBG O2 Saturation VBG Base Excess Sodium Potassium Chloride Carbon Dioxide Anion Gap BUN Creatinine Estim Creat Clear Calc Estimated GFR POC Glucose Random Glucose Calcium Phosphorus Magnesium Total Bilirubin AST ALT Alkaline Phosphatase Ammonia Total Protein Albumin Proteinase 3 (PR3) Ab <1.0 Myeloperoxidase Ab <1.0 05/14/20 05/14/20 05/14/20 05:20 05:20 05:22 WBC RBC Hgb Hct MCV MCH MCHC RDW Plt Count MPV Immature Gran % (Auto) Neut % (Auto) Lymph % (Auto) [place] % (Auto) Eos % (Auto) Baso % (Auto) Lymph # (Auto) [place] # (Auto) Eos # (Auto) Baso # (Auto) Abs Immat Gran (auto) Absolute Neuts (auto) Absolute Nucleated RBC Nucleated RBC % (auto) Smear Tech's Comments Haptoglobin VBG pH 7.45 H VBG pCO2 33 VBG pO2 49 VBG HCO3 23 VBG O2 Saturation 79.0 VBG Base Excess 0.1 Sodium 147 H Potassium 3.4 Chloride 106 Carbon Dioxide 27 Anion Gap 17 BUN 64 H Creatinine 3.22 H Estim Creat Clear Calc 22.5 Estimated GFR 19 POC Glucose Random Glucose 173 H D Calcium 8.3 L Phosphorus 4.1 Magnesium 2.7 H Total Bilirubin 0.6 AST 29 ALT 47 H Alkaline Phosphatase 97 Ammonia 32 Total Protein 6.3 L Albumin 3.3 L Proteinase 3 (PR3) Ab Myeloperoxidase Ab 05/14/20 05/14/20 11:50 18:04 WBC RBC Hgb Hct MCV MCH MCHC RDW Plt Count MPV Immature Gran % (Auto) Neut % (Auto) Lymph % (Auto) [place] % (Auto) Eos % (Auto) Baso % (Auto) Lymph # (Auto) [place] # (Auto) Eos # (Auto) Baso # (Auto) Abs Immat Gran (auto) Absolute Neuts (auto) Absolute Nucleated RBC Nucleated RBC % (auto) Smear Tech's Comments Haptoglobin VBG pH VBG pCO2 VBG pO2 VBG HCO3 VBG O2 Saturation VBG Base Excess Sodium Potassium Chloride Carbon Dioxide Anion Gap BUN Creatinine Estim Creat Clear Calc Estimated GFR POC Glucose 205 H 165 H Random Glucose Calcium Phosphorus Magnesium Total Bilirubin AST ALT Alkaline Phosphatase Ammonia Total Protein Albumin Proteinase 3 (PR3) Ab Myeloperoxidase Ab Microbiology Microbiology Results: Microbiology 05/06/20 14:27 Blood - Venous Blood Culture - Final No growth after 5 days. 05/06/20 14:24 Blood - Venous Blood Culture - Final No growth after 5 days. Progress Note: A&P Time Spent With Patient Time: Total time spent is greater than 50% in coordination of care (as documented) at patient's floor/unit and/or counseling patient: Total time spent with greater than 50% in coordination of care (as documented) at patient's floor/unit and/or counseling patient:: 0 Critical Care Time Critical Care Time (minutes): 90
[2020-05-14] MEDS: HYDROmorphone HCl 0.5 MG/0.5 ML SYRINGE IVPUSH (20:50)
[2020-05-15] VITALS (32 sets, daily range): BP systolic 109–194; BP diastolic 36–87; PULSE 45–74; RESP 14–21; TEMP 35.9–37.2; O2SAT 92–98; BMI 39.2
[2020-05-15] MEDS: Heparin Sodium,Porcine 5,000 UNIT/ML VIAL 5000 UNIT SUBCUT ×4 (00:13→23:05)
[2020-05-15] MEDS: Insulin Lispro 100 UNIT/ML 3 ML VIAL SUBCUT ×4 (00:28→23:27)
[2020-05-15 00:49] LABS: Glucose, Whole Blood 188 mg/dL (60-115)
[2020-05-15] MEDS: 0.9 % Sodium Chloride Flush 3 ML SYRINGE IVFLUSH ×4 (02:21→23:28)
[2020-05-15] MEDS: Ampicillin Sodium/Sulbactam Na 3 GM in 0.9 % Sodium Chloride 100 ML IV ×2 (02:21→15:27)
[2020-05-15 05:33] LABS: Basophils Percent Auto 0.2 % (0-2); Eosinophils Absolute Auto 0.4 X10*3/uL (0.0-0.4); Eosinophils Percent Auto 4.5 % (0-4); Hematocrit 28.4 % (42-52); Hemoglobin 8.8 g/dl (14.0-18.0); Imm Gran Abs Auto 0.06 X10*3/uL (0.00-0.03); Imm Gran Pct Auto 0.7 % (0.0-0.4); Lymphocytes Absolute Auto 0.5 X10*3/uL (1.2-4.9); Lymphocytes Percent Auto 5.6 % (20-40); MANUAL DIFF FLAG SCAN; Mean Corpuscular Hemoglobin 28.6 pg (27.0-33.0); Mean Corpuscular Volume 92.2 fL (80-98); Mean Platelet Volume 10.6 fL (9.4-12.4); Monocytes Absolute Auto 0.6 X10*3/uL (0.1-1.2); Monocytes Percent Auto 6.8 % (2-11); Neutrophils Absolute Auto 6.7 X10*3/uL (2.0-8.3); Neutrophils Percent Auto 82.2 % (45-73); Platelet Count 453 X10*3/uL (160-400); Red Blood Count 3.08 X10*6/uL (4.60-5.80); Red Cell Distribution Width 15.9 % (11.0-16.0); SCAN SMEAR FLAG 1; White Blood Count 8.2 X10*3/uL (4.8-10.8)
[2020-05-15 05:34] LABS: VBG Base Excess -0.8 mmol/L; VBG HCO3 24 mmol/L (22-26); VBG pCO2 40 mmHg; VBG pH 7.38 (7.32-7.43); VBG pO2 51 mmHg
[2020-05-15 05:36] LABS: Venous Blood Gas Refer to POC result
[2020-05-15 05:53] LABS: SLIDE REVIEW VERIFIED
[2020-05-15 06:15] LABS: Alanine Aminotransferase 43 U/L (0-40); Albumin Level 3.3 g/dL (3.5-5.0); Alkaline Phosphatase 111 U/L (39-117); Anion Gap 17 (12-20); Aspartate Amino Transferase 35 U/L (5-37); Blood Urea Nitrogen 58 mg/dL (9-16); Calcium 8.4 mg/dL (8.4-10.2); Carbon Dioxide 29 mmol/L (22-29); Chloride 105 mmol/L (96-108); Creatinine Clr Calc Pharmacy 22.9; Estimated Glomerular Filt Rate 19; Glucose Random 167 mg/dL (60-115); Potassium 3.5 mmol/L (3.3-5.1); Sodium 147 mmol/L (135-145); Total Protein 6.7 g/dL (6.5-8.0)
[2020-05-15 08:41] LABS: IgA 375 mg/dL (70-320); IgG 1239 mg/dL (600-1540); IgM 52 mg/dL (50-300)
[2020-05-15] MEDS: Betamethasone Dip Aug 0.05% Cr 15 GM TUBE 1 APPL TOPICAL ×2 (09:46→21:58)
[2020-05-15] MEDS: Levothyroxine Sodium 125 MCG TABLET PO (09:46)
[2020-05-15] MEDS: Chlorhexidine Gluc Oral Rinse 15 ML MOUTHWASH BUCCAL ×3 (09:47→21:58)
[2020-05-15] MEDS: Famotidine/PF 20 MG/2 ML VIAL IVPUSH (09:47)
[2020-05-15] MEDS: Nystatin Powder 15 GM BOTTLE 1 APPL TOPICAL ×3 (09:47→21:57)
--- NOTE | 2020-05-15 10:23 | PM.CCPN ---
Subjective Subjective Date of Service: 05/15/20 Interval History: Mr. Lozano was admitted to ICU on May 11 [facility] of acute hypercarbic resp failure, likely 2? aspiration. The patient is a 74 yo male with PMHx of DM, HTN, long time smoker, CHF, CKD (39/2.1 in 2018), and Hypothyroidism. He has chronic wounds on his legs for unclear reasons. According to the patient?s , he was managing his wounds by himself at home. On May 06, the patient?s called EMS bec of altered MS. According to EMS and the patient, he was sent to the emergency room by request of the patient's 's bec she believed that he?d been altered for the previous 5-10 days. In the ED, the patient was oriented X 3 and neurologically intact according to the ED physician, but the hospitalist thought he was confused. He denied any complaints. He was hypothermic to 92.6? however. Both of his lower legs had venous stasis changes and looked cellulitic. WBC was normal. Na was 149, BUN/creat were 50/2.2. CXR and head CT showed NAD. He was treated with fluids and antibiotics. He was admitted to medicine and given Zosyn and doxycycline. He remained largely obtunded, thought 2? metabolic encephalopathy. No blood gasses were done. Blood cultures were negative. Antibiotics were changed to clindamycin at the suggestion of ID. Overnight on May 10, the patient became hypoxemic. That morning May 11, chest x-ray for the 1st time showed significant bibasilar ill-defined infiltrates. Later that morning, an ABG showed severe hypercarbia. The patient was therefore intubated and tx to ICU, where he subsequently required bronchoscopy for refractory hypoxemia with heavy tracheal secretion burden that was unable to be cleared out by in-line suction. The patient was extubated on 05/12/2020, however required re-intubation the same day secondary to recurrent pulmonary aspiration resulting in hypoxic and hypercapnic respiratory failure. ECHO on May 12 showed: - Normal left ventricular size and systolic function, w moderately increased left ventricular wall thickness. EF 60-65%. - Elevated filling pressures. - Mildly increased RV cavity size, w normal RV systolic function. - IVC is dilated w <50% inspiratory collapse. The patient underwent brain MRI on May 11, which was read as showing - There are nonspecific T2 signal changes involving the internal capsules bilaterally, surrounding the putamen bilaterally, involving the splenium of the corpus callosum, and extending into the arceo radiata bilaterally. Consider postcontrast imaging for further assessment in light of the history of encephalopathy. Differential considerations include toxic/metabolic, infectious, inflammatory, and a variety of alternative etiologies. - There is lack of FLAIR CSF suppression within multiple cerebral sulci, likely corresponding to vessels which could be indicative of slow arterial flow for which a CTA of the head would be helpful in further assessment. - A partially imaged disc protrusion at C4-C5 results in potential significant mass effect on the cervical spinal cord and severe central canal stenosis that can be further assessed with a cervical spine MRI if there is cervical myelopathy clinically. Yesterday, we turned the propofol off and the patient never became interactive. Best neuro response was partial eye opening to stimulation. EEG done yest afternoon read by Dr. Kaminski as showing ?moderately abnormal EEG due to diffuse background slowing consistent with a diffuse encephalopathic process. No epileptiform discharges seen.? I spoke to Dr. Mjoica about the MRI scan and he rec?d repeat MRI with contrast and MRI of the cerv spine. Discussed with Dr. Garzon today. He didn?t see much on the brain MRI, had same rec for MRI w contrast. On exam today, the propofol has been off for 24 hours, and at best he?s opening his eyes about ? 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 No response to command, no response to confrontation. He clearly grimaces to pain, and delinquency counselor seem intact. No gross neuro focality. PERRL about 4mm. Positive corneals. See Vital Signs below. He?s on Levophed 0.06ug. No sedation. On BiLevel 14, pressures 26/8, PSV 24/35%, RR is 17, Vt is 500cc, Ve is 7.6L, Sat 96-98%. CVBG this morning showed 7.38/40/0. No JVD at 30?. Chest is CTA with normal exp phase. Abdomen has good BS, benign. No significant edema. Mult sores and abrasions on his arms and legs. Both lower legs still erythematous, not significantly improved from admission as far as I can tell from looking at his admission photos. CURRENT MEDICATIONS include: Unasyn Betamethasone topical Bumex 2 mg IV bid Pepcid 20 mg daily Heparin 5000 units Q8h Insulin SQ sliding scale Levothyroxine LABORATORY DATA: As below. Notably, Na is 147, BUN/creat down slightly to 58/3.1. IMPRESSION: 1. Underlying obesity, congestive heart failure, COPD 2. Obtundation. Etiology still undiscovered. Most likely metabolic. But he?ll go for MR w contrast along with cerv spine MRI this afternoon. Discussed with Dr. Garzon at length, along with Dr. Mojica. 3. Acute on chronic congestive heart failure, with right heart failure, by 2D echo. 4. Acute hypercapnic respiratory failure. Serum bicarb levels were normal on admission, which is inconsistent with chronic CO2 retention. A venous blood gas done 05/10 showed normal pCO2. What accounted for his sudden hypercarbia the next morning, 05/11, is not certain, (he did not get any opiates), but was most likely 2? aspiration, as shown by the CXR. 5. Acute renal failure. Undoubtedly has cardiorenal syndrome. When acute resp failure occurs in patients with RHF and acute renal failure, the mortality rate is very high. RHF will limit the amount he can be diuresed. He?s got no JVD or signif edema, and his renal indices are rising. So diuretics were stopped yesterday and his renal indices are very slightly improved. I?ll give him a liter of crystalloid today for his MRI scan w contrast. D/W Dr. Mojica. 6. Hypernatremia. Start D5W infusion. 7. DM. Continue insulin SQ sliding scale. 8. Underlying history of hypothyroidism. On Levothyroid. 9. ID: Pulmonary aspiration with resultant aspiration pneumonia. Empirically covered with Unasyn. Not at all clear that he has lower extremity cellulitis. More likely has chronic venous stasis dermatitis changes. 10. Cervical myelopathy. For MRI of Cspine later today. 11. Nutrition. On tube feeds. Critical care time: 70+ min Physical Exam Vital Signs: Vital Signs: Last Vital Signs Temp 98.6 F 05/15/20 10:00 Pulse 68 05/15/20 10:00 Resp 15 05/15/20 10:00 BP 134/54 L 05/15/20 10:00 Pulse Ox 96 05/15/20 10:00 Body Mass Index 39.2 Objective Data Labs CBC & Chem 7: 05/15/20 05:22 05/15/20 05:22 Labs: Laboratory Results - last 24 hr 05/11/20 05/11/20 05/11/20 05:31 08:00 08:00 WBC RBC Hgb Hct MCV MCH MCHC RDW Plt Count MPV Immature Gran % (Auto) Neut % (Auto) Lymph % (Auto) [place] % (Auto) Eos % (Auto) Baso % (Auto) Lymph # (Auto) [place] # (Auto) Eos # (Auto) Baso # (Auto) Abs Immat Gran (auto) Absolute Neuts (auto) Absolute Nucleated RBC Nucleated RBC % (auto) Smear Tech's Comments Haptoglobin 245 H VBG pH VBG pCO2 VBG pO2 VBG HCO3 VBG O2 Saturation VBG Base Excess Sodium Potassium Chloride Carbon Dioxide Anion Gap BUN Creatinine Estim Creat Clear Calc Estimated GFR POC Glucose Random Glucose Calcium Total Bilirubin AST ALT Alkaline Phosphatase Total Protein Albumin IgG Total 1239 IgA Total 375 H IgM 52 PEGGY Interpretation SEE NOTE Proteinase 3 (PR3) Ab <1.0 Myeloperoxidase Ab <1.0 05/14/20 05/14/20 05/15/20 11:50 18:04 00:21 WBC RBC Hgb Hct MCV MCH MCHC RDW Plt Count MPV Immature Gran % (Auto) Neut % (Auto) Lymph % (Auto) [place] % (Auto) Eos % (Auto) Baso % (Auto) Lymph # (Auto) [place] # (Auto) Eos # (Auto) Baso # (Auto) Abs Immat Gran (auto) Absolute Neuts (auto) Absolute Nucleated RBC Nucleated RBC % (auto) Smear Tech's Comments Haptoglobin VBG pH VBG pCO2 VBG pO2 VBG HCO3 VBG O2 Saturation VBG Base Excess Sodium Potassium Chloride Carbon Dioxide Anion Gap BUN Creatinine Estim Creat Clear Calc Estimated GFR POC Glucose 205 H 165 H 188 H Random Glucose Calcium Total Bilirubin AST ALT Alkaline Phosphatase Total Protein Albumin IgG Total IgA Total IgM PEGGY Interpretation Proteinase 3 (PR3) Ab Myeloperoxidase Ab 05/15/20 05/15/20 05/15/20 05:22 05:22 05:27 WBC 8.2 RBC 3.08 L Hgb 8.8 L Hct 28.4 L MCV 92.2 MCH 28.6 MCHC 31.0 RDW 15.9 Plt Count 453 H D MPV 10.6 Immature Gran % (Auto) 0.7 H Neut % (Auto) 82.2 H Lymph % (Auto) 5.6 L [place] % (Auto) 6.8 Eos % (Auto) 4.5 H Baso % (Auto) 0.2 Lymph # (Auto) 0.5 L [place] # (Auto) 0.6 Eos # (Auto) 0.4 Baso # (Auto) 0.0 Abs Immat Gran (auto) 0.06 H Absolute Neuts (auto) 6.7 Absolute Nucleated RBC 0.000 Nucleated RBC % (auto) 0.0 Smear Tech's Comments VERIFIED Haptoglobin VBG pH 7.38 VBG pCO2 40 VBG pO2 51 VBG HCO3 24 VBG O2 Saturation 78.0 VBG Base Excess -0.8 Sodium 147 H Potassium 3.5 Chloride 105 Carbon Dioxide 29 Anion Gap 17 BUN 58 H Creatinine 3.14 H Estim Creat Clear Calc 22.9 Estimated GFR 19 POC Glucose Random Glucose 167 H Calcium 8.4 Total Bilirubin 1.0 AST 35 ALT 43 H Alkaline Phosphatase 111 Total Protein 6.7 Albumin 3.3 L IgG Total IgA Total IgM PEGGY Interpretation Proteinase 3 (PR3) Ab Myeloperoxidase Ab Microbiology Microbiology Results: Microbiology 05/06/20 14:27 Blood - Venous Blood Culture - Final No growth after 5 days. 05/06/20 14:24 Blood - Venous Blood Culture - Final No growth after 5 days. Progress Note: A&P Time Spent With Patient Time: Total time spent is greater than 50% in coordination of care (as documented) at patient's floor/unit and/or counseling patient: Total time spent with greater than 50% in coordination of care (as documented) at patient's floor/unit and/or counseling patient:: 0 Critical Care Time Critical Care Time (minutes): 60
[2020-05-15] MEDS: Dextrose 5 % 1,000 ML 500 ML IVCONT (11:15)
[2020-05-15 11:29] LABS: Glucose, Whole Blood 237 mg/dL (60-115)
--- NOTE | 2020-05-15 11:46 | P.PNNP_ITS ---
Subjective Subjective Date of Service: 05/15/20 Interval history: Seen and examined. Events noted Physical Exam Vital Signs: Vital Signs: Last Vital Signs Temp 98.6 F 05/15/20 11:00 Pulse 62 05/15/20 11:00 Resp 18 05/15/20 11:00 BP 126/56 L 05/15/20 11:00 Pulse Ox 95 05/15/20 11:00 Body Mass Index 39.2 Const: Other: Constitutional : Obtunded, not responsive, sleeping , on vent Neck : Normal inspection, Supple Cardiovascular : RRR, S1 S2, no lower extremity edema Respiratory : Decrease a forced and bilateral air entry, bilateral basal crackles, wheezes or rhonchi Gastrointestinal: soft, lax, Normal bowel sounds, Non tender Skin : Warm/Dry, No rash Neurological : Obtunded, moving all extremities, open eyes to stimuli and follow simple commands, No other focal deficit General: cooperative, no acute distress and other (Sedated on the vent) Nutritional Appearance: obese HENMT: Head: Yes normal to inspection Mouth: Normal oral and palatal mucosa present Eyes: General: appearance normal, both eyes and all related structures Sclerae: sclerae normal EOM: EOMs intact bilaterally Neck: Neck: Yes no lymphadenopathy, Yes trachea midline and Yes supple Resp: Effort & Inspection: normal respiratory effort and no respiratory distress Auscultation: clear to auscultation bilaterally and crackles (Right basilar) Cardio: Other: Constitutional : Obtunded, not responsive, sleeping , on vent Neck : Normal inspection, Supple Cardiovascular : RRR, S1 S2, no lower extremity edema Respiratory : Decrease a forced and bilateral air entry, bilateral basal crackles, wheezes or rhonchi Gastrointestinal: soft, lax, Normal bowel sounds, Non tender Skin : Warm/Dry, No rash Neurological : Obtunded, moving all extremities, open eyes to stimuli and follow simple commands, No other focal deficit Jugular venous distension: no JVD Rate: regular rate Rhythm: regular rhythm Heart sounds: no gallops, no murmurs and no rubs GI: Palpation (GI): Soft to palpation, nontender and Other GI palpation findings present ( Nontender) Auscultation: normal bowel sounds Skin: Other: bilateral venous stasis changes,chronic legs General skin exam: no rashes or lesions noted Lesions: lesion noted and other (ulcer bekah and redness) Extrem: Other: slight decreased erythema legs General: No clubbing, No cyanosis, Yes pedal edema (1+ bilateral) and Yes venous stasis dermatitis (Bilateral lower extremity) Objective Data Labs CBC & Chem 7: 05/15/20 05:22 05/15/20 05:22 Labs: Laboratory Results - last 24 hr 05/11/20 05/11/20 05/11/20 05:31 08:00 08:00 WBC RBC Hgb Hct MCV MCH MCHC RDW Plt Count MPV Immature Gran % (Auto) Neut % (Auto) Lymph % (Auto) [place] % (Auto) Eos % (Auto) Baso % (Auto) Lymph # (Auto) [place] # (Auto) Eos # (Auto) Baso # (Auto) Abs Immat Gran (auto) Absolute Neuts (auto) Absolute Nucleated RBC Nucleated RBC % (auto) Smear Tech's Comments Haptoglobin 245 H VBG pH VBG pCO2 VBG pO2 VBG HCO3 VBG O2 Saturation VBG Base Excess Sodium Potassium Chloride Carbon Dioxide Anion Gap BUN Creatinine Estim Creat Clear Calc Estimated GFR POC Glucose Random Glucose Calcium Total Bilirubin AST ALT Alkaline Phosphatase Total Protein Albumin Ur Random Sodium IgG Total 1239 IgA Total 375 H IgM 52 PEGGY Interpretation SEE NOTE Proteinase 3 (PR3) Ab <1.0 Myeloperoxidase Ab <1.0 05/14/20 05/14/20 05/15/20 11:50 18:04 00:21 WBC RBC Hgb Hct MCV MCH MCHC RDW Plt Count MPV Immature Gran % (Auto) Neut % (Auto) Lymph % (Auto) [place] % (Auto) Eos % (Auto) Baso % (Auto) Lymph # (Auto) [place] # (Auto) Eos # (Auto) Baso # (Auto) Abs Immat Gran (auto) Absolute Neuts (auto) Absolute Nucleated RBC Nucleated RBC % (auto) Smear Tech's Comments Haptoglobin VBG pH VBG pCO2 VBG pO2 VBG HCO3 VBG O2 Saturation VBG Base Excess Sodium Potassium Chloride Carbon Dioxide Anion Gap BUN Creatinine Estim Creat Clear Calc Estimated GFR POC Glucose 205 H 165 H 188 H Random Glucose Calcium Total Bilirubin AST ALT Alkaline Phosphatase Total Protein Albumin Ur Random Sodium IgG Total IgA Total IgM PEGGY Interpretation Proteinase 3 (PR3) Ab Myeloperoxidase Ab 05/15/20 05/15/20 05/15/20 05:22 05:22 05:27 WBC 8.2 RBC 3.08 L Hgb 8.8 L Hct 28.4 L MCV 92.2 MCH 28.6 MCHC 31.0 RDW 15.9 Plt Count 453 H D MPV 10.6 Immature Gran % (Auto) 0.7 H Neut % (Auto) 82.2 H Lymph % (Auto) 5.6 L [place] % (Auto) 6.8 Eos % (Auto) 4.5 H Baso % (Auto) 0.2 Lymph # (Auto) 0.5 L [place] # (Auto) 0.6 Eos # (Auto) 0.4 Baso # (Auto) 0.0 Abs Immat Gran (auto) 0.06 H Absolute Neuts (auto) 6.7 Absolute Nucleated RBC 0.000 Nucleated RBC % (auto) 0.0 Smear Tech's Comments VERIFIED Haptoglobin VBG pH 7.38 VBG pCO2 40 VBG pO2 51 VBG HCO3 24 VBG O2 Saturation 78.0 VBG Base Excess -0.8 Sodium 147 H Potassium 3.5 Chloride 105 Carbon Dioxide 29 Anion Gap 17 BUN 58 H Creatinine 3.14 H Estim Creat Clear Calc 22.9 Estimated GFR 19 POC Glucose Random Glucose 167 H Calcium 8.4 Total Bilirubin 1.0 AST 35 ALT 43 H Alkaline Phosphatase 111 Total Protein 6.7 Albumin 3.3 L Ur Random Sodium IgG Total IgA Total IgM PEGGY Interpretation Proteinase 3 (PR3) Ab Myeloperoxidase Ab 05/15/20 05/15/20 10:45 11:26 WBC RBC Hgb Hct MCV MCH MCHC RDW Plt Count MPV Immature Gran % (Auto) Neut % (Auto) Lymph % (Auto) [place] % (Auto) Eos % (Auto) Baso % (Auto) Lymph # (Auto) [place] # (Auto) Eos # (Auto) Baso # (Auto) Abs Immat Gran (auto) Absolute Neuts (auto) Absolute Nucleated RBC Nucleated RBC % (auto) Smear Tech's Comments Haptoglobin VBG pH VBG pCO2 VBG pO2 VBG HCO3 VBG O2 Saturation VBG Base Excess Sodium Potassium Chloride Carbon Dioxide Anion Gap BUN Creatinine Estim Creat Clear Calc Estimated GFR POC Glucose 237 H Random Glucose Calcium Total Bilirubin AST ALT Alkaline Phosphatase Total Protein Albumin Ur Random Sodium 58.0 IgG Total IgA Total IgM PEGGY Interpretation Proteinase 3 (PR3) Ab Myeloperoxidase Ab Microbiology Microbiology Results: Microbiology 05/06/20 14:27 Blood - Venous Blood Culture - Final No growth after 5 days. 05/06/20 14:24 Blood - Venous Blood Culture - Final No growth after 5 days. Assessment & Plan Assessment and plan (1) Cellulitis: Problem details: resolved Status: Acute Assessment and Plan: 74 year old man with history of CHF and hypothyroidism admitted with acute encephalopathy related to dehydration and cellulitis and noted renal dysfunc and hyperNa Now decomp resp status req inutbation 1. Non-Oliguric JETT: SCr remains stable at 3.0 range; sepsis assoc ATN and a risk prog to point of possibly needing HD in next 24-48 hrs 2. CKD 3b: bsl SCr 2.0; etiol unlcear but its been longstanding; UA unremarkable; suspecty age related vs HTN nephrosclerosis 3.. HyperNa: still most c/w poor po intake; doubt DI given UOP is not impressive 4.. cellulitis 5, Rsp failure: on vent 6. Sepsis REC: no indication for dialysis yet but will cont to track closley; cont to replace FW deficit; cont to track UOP and renal func; avoid NToxins; optimize hemodyanamics/resp as per ICU team will follow with team Time Spent With Patient Time: Total time spent is greater than 50% in coordination of care (as documented) at patient's floor/unit and/or counseling patient:
[2020-05-15] MEDS: propofoL 1,000 MG/100 ML VIAL 13.14 MG IVCONT (11:59)
[2020-05-15 12:16] LABS: Complement C3 187 mg/dL (82-185)
[2020-05-15] MEDS: Rocuronium Bromide 50 MG/5 ML VIAL IVPUSH (14:56)
[2020-05-15 15:29] LABS: Glucose, Whole Blood 189 mg/dL (60-115)
--- NOTE | 2020-05-15 16:29 | PM.NEUROCN ---
History of Present Illness Data of Consult Service Date: 05/15/20 Primary Care Provider: Unknown Physician 74 years old man who I had seen few days ago with unexplained weakness but also change in mental status was now intubated and in ICU and I was asked to see him again. He was unable to provide any history. [facility], [facility] Past Medical History Medical History CHF (congestive heart failure) Diabetes HTN (hypertension) Hypothyroidism Functional capacity: uses cane/walker Family History Family history: reviewed and not pertinent Social History Social History Household Members: Spouse Housing: House Do you presently have visiting nurse or other home services: No Unable to assess alcohol history related to: Unable to respond Alcohol intake: unknown Smoking Status: Unknown if ever smoked Use of substances other than those prescribed or required for medical reasons: Unknown Currently Displaying Signs/Symptoms of Drug Intoxication Withdrawal: No Advance Directives: No Advance Directives Information Provided: No Do you have thoughts of harming others: None Do you have a plan to hurt others: No Plan Recently lost weight without trying: Unsure service: No Current occupational status: retired Meds Allergies Allergy/AdvReac Type Severity Reaction Status Date / Time No Known Allergies Allergy Unknown NONE Unverified 11/17/19 14:44 Active Medications: Current Medications Generic Name Dose Route Start Last Admin Trade Name Freq PRN Reason Stop Dose Admin Betamethasone Dipropion Augmented 1 appl 05/07/20 21:00 05/15/20 09:46 Betamethasone Dip Aug 0.05% Cr 15 Gm Tube TOPICAL 1 appl BID COSME Administration Protocol Chlorhexidine Gluconate 15 ml 05/11/20 15:00 05/15/20 09:47 Chlorhexidine Gluc Oral Rinse 15 Ml Mouthwash BUCCAL 15 ml TID COSME Administration Famotidine 20 mg 05/12/20 09:00 05/15/20 09:47 Famotidine/Pf 20 Mg/2 Ml Vial IVPUSH 20 mg DAILY COSME Administration Heparin Sodium (Porcine) 5,000 unit 05/14/20 23:30 05/15/20 08:46 Heparin Sodium,Porcine 5,000 Unit/Ml Vial SUBCUT 5,000 unit Q8H COSME Administration Hydromorphone HCl 0.5 mg 05/14/20 21:17 05/14/20 20:50 Hydromorphone Hcl 0.5 Mg/0.5 Ml Syringe IVPUSH 0.5 mg Q1H PRN Administration WOB Propofol 1,000 mg in 100 mls @ 0 mls/hr 05/11/20 11:15 05/15/20 13:15 Diprivan IVCONT 30 mcg/kg/min .Q0M COSME 19.71 mls/hr Titration Protocol Per Protocol Norepinephrine Bitartrate 8 mg in 250 mls @ 0 mls/hr 05/11/20 11:15 05/15/20 00:13 Levophed IVCONT 0.06 mcg/kg/min .Q0M COSME 12.32 mls/hr Administration Protocol Per Protocol Ampicillin Sodium/Sulbactam 100 mls @ 200 mls/hr 05/11/20 14:00 05/15/20 15:27 Sodium 3 gm/ Sodium Chloride IV 100 mls/hr Q12H COSME Administration Dextrose 1,000 mls @ 75 mls/hr 05/15/20 16:30 D5w IVCONT .[id number] [facility] Insulin Human Lispro 0 unit 05/14/20 18:00 05/15/20 11:30 Insulin Lispro 100 Unit/Ml 3 Ml Vial SUBCUT Not Given 0000,0600,1200,1800 [facility] Protocol Levothyroxine Sodium 125 mcg 05/07/20 09:00 05/15/20 09:46 Levothyroxine Sodium 125 Mcg Tablet PO 125 mcg DAILY [facility] Administration Nystatin 1 appl 05/07/20 09:00 05/15/20 09:47 Nystatin Powder 15 Gm Bottle TOPICAL 1 appl TID [facility] Administration Protocol Sodium Chloride 3 ml 05/07/20 00:00 05/15/20 08:47 0.9 % Sodium Chloride Flush 3 Ml Syringe IVFLUSH 3 ml QSHIFT [facility] Administration Home Medications Medication Instructions Recorded Confirmed Last Taken Type furosemide 1 tab PO TID 05/06/20 05/06/20 Unknown History levothyroxine 1 tab PO DAILY 05/06/20 05/06/20 Unknown History metoprolol tartrate 1 tab PO DAILY 05/06/20 05/06/20 Unknown History spironolactone 1 tab PO BID 05/06/20 05/06/20 Unknown History tamsulosin 1 cap PO DAILY 05/06/20 05/06/20 Unknown History Physical Exam Vital Signs: Vital Signs: Last Vital Signs Temp 97.2 F 05/15/20 15:50 Pulse 54 05/15/20 15:50 Resp 16 05/15/20 15:50 BP 146/50 H 05/15/20 15:50 Pulse Ox 98 05/15/20 15:50 Body Mass Index 39.2 He was quite drowsy but with shouting he barely open his eyes. When I try to open his eyes he resisted. Pupils were round reactive and moving in different directions. Face was symmetrical. He was not following commands on consistent basis but sometime he did. For example he wiggle his toes and moved his individual hand when I asked him to. Deep tendon reflexes are absent with flexor plantars. Results Labs CBC & Chem 7: 05/15/20 05:22 05/15/20 05:22 Labs: Short CBC 05/15/20 Range/Units 05:22 WBC 8.2 (4.8-10.8) X10*3/uL Hgb 8.8 L (14.0-18.0) g/dl Hct 28.4 L (42-52) % Plt Count 453 H D (160-400) X10*3/uL BMP 05/15/20 05:22 Sodium 147 H Potassium 3.5 Chloride 105 Carbon Dioxide 29 BUN 58 H Creatinine 3.14 H Calcium 8.4 Liver Function 05/15/20 Range/Units 05:22 Total Bilirubin 1.0 (0.0-1.0) mg/dL AST 35 (5-37) U/L ALT 43 H (0-40) U/L Alkaline Phosphatase 111 (39-117) U/L Albumin 3.3 L (3.5-5.0) g/dL His MRI of brain was reviewed that did not reveal any significant acute or chronic abnormality. MRI of cervical spine all on the other hand revealed quite significant multilevel spondylitic stenosis with myelopathy resulting from cord compression from stenosis. Microbiology Microbiology Results: Microbiology 05/06/20 14:27 Blood - Venous Blood Culture - Final No growth after 5 days. 05/06/20 14:24 Blood - Venous Blood Culture - Final No growth after 5 days. Assessment and Plan (1) Myelopathy, spondylogenic, cervical: Status: Acute His cervical spine was significantly affected with multilevel pathology resulting in cord compression. This could at least explain paraplegia or weakness in his legs and unsteadiness and weakness but would not explain his mental status changes. For this, a chronic process, I would recommend a hard collar and neurosurgical evaluation and possible decompression. (2) Encephalopathy: Status: Acute Encephalopathy is probably metabolic toxic type from Pulmonary and electrolyte abnormalities. I would recommend continue to correct his metabolic abnormalities and try to extubate him. There was no evidence of seizure on his EEG. There was no significant pathology noted on his MRI brain. In theory we have not ruled out certain conditions such as aseptic meningitis or a similar process that would require examination of spinal fluid. Because of no significant finding on his MRI including in his manage ease I doubt if that is the diagnosis. Also lumbar puncture would be relatively contraindicated due to significant cervical spinal stenosis which would increase risk and also result in alteration of CSF protein levels, which could be increased just because of this finding.
[2020-05-15] MEDS: Dextrose 5 % 1,000 ML 75 ML IVCONT (16:40)
[2020-05-15 17:21] LABS: Glucose, Whole Blood 201 mg/dL (60-115)
[2020-05-15] MEDS: HYDROmorphone HCl 0.5 MG/0.5 ML SYRINGE IVPUSH ×3 (18:27→23:05)
--- NOTE | 2020-05-15 18:31 | PC.NURSE ---
assumed care for pt at 0700. pt updated on plan of care, plan for mri this afternoon d/t no etiology of present mental status. pt restarted on iv sedation as well as one time dose paralytic to facilitate mri scan. pt more restless upon returning from mri, trialed off sedation and pressors. pt rapidly hypotensive following trial off pressors, norepinepherine restarted. tapeman consulting w neuro surgeon regarding benefit of transfer to higher level of care. will continue to monitor for discharge needs.
[2020-05-15 23:16] LABS: Glucose, Whole Blood 190 mg/dL (60-115)
[2020-05-16] VITALS (30 sets, daily range): BP systolic 109–144; BP diastolic 36–61; PULSE 43–88; RESP 14–18; TEMP 36.5–37.7; O2SAT 95–100; BMI 40.4
[2020-05-16] MEDS: Ampicillin Sodium/Sulbactam Na 3 GM in 0.9 % Sodium Chloride 100 ML IV ×2 (02:16→14:53)
[2020-05-16 06:23] LABS: Basophils Percent Auto 0.3 % (0-2); Eosinophils Absolute Auto 0.4 X10*3/uL (0.0-0.4); Hematocrit 27.1 % (42-52); Hemoglobin 8.2 g/dl (14.0-18.0); Imm Gran Abs Auto 0.08 X10*3/uL (0.00-0.03); Imm Gran Pct Auto 0.8 % (0.0-0.4); Lymphocytes Absolute Auto 0.5 X10*3/uL (1.2-4.9); Lymphocytes Percent Auto 4.8 % (20-40); MANUAL DIFF FLAG SCAN; Mean Corpuscular HGB Conc 30.3 g/dl (31.0-36.0); Mean Corpuscular Hemoglobin 28.5 pg (27.0-33.0); Mean Corpuscular Volume 94.1 fL (80-98); Mean Platelet Volume 10.5 fL (9.4-12.4); Monocytes Absolute Auto 0.6 X10*3/uL (0.1-1.2); Monocytes Percent Auto 6.1 % (2-11); Neutrophils Absolute Auto 8.1 X10*3/uL (2.0-8.3); Platelet Count 461 X10*3/uL (160-400); Red Blood Count 2.88 X10*6/uL (4.60-5.80); Red Cell Distribution Width 15.9 % (11.0-16.0); SCAN SMEAR FLAG 1; White Blood Count 9.7 X10*3/uL (4.8-10.8)
[2020-05-16] MEDS: Dextrose 5 % 1,000 ML 75 ML IVCONT (06:23)
[2020-05-16 06:24] LABS: Venous Blood Gas Refer to POC result
[2020-05-16 06:25] LABS: VBG Base Excess 5.6 mmol/L; VBG HCO3 31 mmol/L (22-26); VBG pCO2 50 mmHg; VBG pH 7.39 (7.32-7.43); VBG pO2 42 mmHg
[2020-05-16 06:29] LABS: Glucose, Whole Blood 251 mg/dL (60-115)
[2020-05-16] MEDS: Insulin Lispro 100 UNIT/ML 3 ML VIAL SUBCUT ×4 (06:48→23:39)
[2020-05-16] MEDS: Heparin Sodium,Porcine 5,000 UNIT/ML VIAL 5000 UNIT SUBCUT ×3 (06:48→23:42)
[2020-05-16 07:04] LABS: Alanine Aminotransferase 38 U/L (0-40); Albumin Level 3.1 g/dL (3.5-5.0); Alkaline Phosphatase 98 U/L (39-117); Anion Gap 14 (12-20); Aspartate Amino Transferase 35 U/L (5-37); Bilirubin Total 0.7 mg/dL (0.0-1.0); Blood Urea Nitrogen 56 mg/dL (9-16); Calcium 8.1 mg/dL (8.4-10.2); Carbon Dioxide 29 mmol/L (22-29); Chloride 101 mmol/L (96-108); Creatinine Clr Calc Pharmacy 24.4; Estimated Glomerular Filt Rate 21; Glucose Random 250 mg/dL (60-115); Phosphorus 4.3 mg/dL (2.7-4.5); Sodium 140 mmol/L (135-145); Total Protein 6.4 g/dL (6.5-8.0)
[2020-05-16 08:14] LABS: SLIDE REVIEW VERIFIED
[2020-05-16] MEDS: 0.9 % Sodium Chloride Flush 3 ML SYRINGE IVFLUSH ×3 (08:26→23:30)
--- NOTE | 2020-05-16 09:41 | MHC.CLN ---
F/U PT RECEIVING TF JEVITY AT MAX GOAL RATE 50CC/HR WITH 240CC Q 6HRS PROVIDES 1272KCALS, 53G PROTEIN (.85G/KG), 1962CC TOTAL WATER FROM FORMULA AND FLUSHES 32CC/KG) MONITOR TOLERANCE, RESIDUALS AND LYTES
[2020-05-16] MEDS: Levothyroxine Sodium 125 MCG TABLET PO (10:17)
[2020-05-16] MEDS: Famotidine/PF 20 MG/2 ML VIAL IVPUSH (10:17)
[2020-05-16] MEDS: Chlorhexidine Gluc Oral Rinse 15 ML MOUTHWASH BUCCAL ×3 (10:17→20:50)
[2020-05-16] MEDS: Nystatin Powder 15 GM BOTTLE 1 APPL TOPICAL ×3 (10:21→20:52)
[2020-05-16] MEDS: Betamethasone Dip Aug 0.05% Cr 15 GM TUBE 1 APPL TOPICAL ×2 (10:21→20:50)
[2020-05-16] MEDS: acetaZOLAMIDE 250 MG TABLET 500 MG PO ×2 (11:23→20:50)
--- NOTE | 2020-05-16 11:35 | P.PNCC_ITS ---
Subjective Subjective Date of Service: 05/16/20 Interval History: Mr. Lozano was admitted to ICU on May 11 [facility] of acute hypercarbic resp failure, likely 2? aspiration. The patient is a 74 yo male with PMHx of DM, HTN, long time smoker, CHF, CKD (39/2.1 in 2018), and Hypothyroidism. He has chronic wounds on his legs for unclear reasons. According to the patient?s , he was managing his wounds by himself at home. On May 06, the patient?s called EMS bec of altered MS. According to EMS and the patient, he was sent to the emergency room by request of the patient's 's bec she believed that he?d been altered for the previous 5-10 days. In the ED, the patient was oriented X 3 and neurologically intact according to the ED physician, but the hospitalist thought he was confused. He denied any complaints. He was hypothermic to 92.6? however. Both of his lower legs had venous stasis changes and looked cellulitic. WBC was normal. Na was 149, BUN/creat were 50/2.2. CXR and head CT showed NAD. He was treated with fluids and antibiotics. He was admitted to medicine and given Zosyn and doxycycline. He remained largely obtunded, thought 2? metabolic encephalopathy. No blood gasses were done. Blood cultures were negative. Antibiotics were changed to clindamycin at the suggestion of ID. Overnight on May 10, the patient became hypoxemic. That morning May 11, chest x-ray for the 1st time showed significant bibasilar ill-defined infiltrate s. Later that morning, an ABG showed severe hypercarbia. The patient was therefore intubated and tx to ICU, where he subsequently required bronchoscopy for refractory hypoxemia with heavy tracheal secretion burden that was unable to be cleared out by in-line suction. The patient was extubated on 05/12/2020, however required re-intubation the same day secondary to recurrent pulmonary aspiration resulting in hypoxic and hypercapnic respiratory failure. ECHO on May 12 showed: - Normal left ventricular size and systolic function, w moderately increased left ventricular wall thickness. EF 60-65%. - Elevated filling pressures. - Mildly increased RV cavity size, w normal RV systolic function. - IVC is dilated w <50% inspiratory collapse. The patient underwent brain MRI on March 12, which was read by one of the neuroradiologists as showing various nonspecific signal changes of unclear sig nificance. An MRI with contrast was recommended. Also noted was a severe disc protrusion at C4-C5 w mass effect on the cervical spinal cord and severe central canal stenosis; a cervical spine MRI was rec. The propofol was turned off about 48 hrs ago and he hasn?t yet become interactive. Best neuro response was partial eye opening to stimulation, but nothing purposeful. No responde to commands or confrontation. EEG done on 05/14 showed ?moderately abnormal EEG due to diffuse background slowing consistent with a diffuse encephalopathic process. No epileptiform discharges seen.? We repeated the MRI with contrast and did the c-spine MR yesterday. By report, there is no abnormal mass or enhancement in the brain. The c-spine shows severe canal stenosis with compression of the cervical spinal cord at C4-C5 and C5-C6 w AP narrowing of the canal at the level of C1, and severe bilateral n euroforaminal encroachment at C4-C5 and C5-C6. I spoke w the patient?s and she said he?s had leg weakness and has been using a walker for some years. He also has bilat upp extrem weakness, hard to raise his arms above his shoulders. On exam today, w the propofol off for 48 hours, neuro exam is as above. Mental status-jordan, he?s about the same as yesterday (ie. no manager video games than yesterday, no improvement since yesterday). He does move all four extrems spontaneously, jacquelyn both arms. environmental health officer seem intact, no gross neuro focality. PERRL about 4mm. Positive corneals. See Vital Signs below. He?s on Levophed 0.09ug. No sedation. HR 68, SR. BP 135/53. T 99.5?. On BiLevel 14, pressures 26/8, PSV 24/35%, RR is 19, Vt is 500cc, Ve is 8.5L, Sat 96-98%. CVBG this morning showed 7.39/50/+5. No JVD at 30?. Chest shows diffuse rhonchi, with normal exp phase. Abdomen has good BS, benign. Trace edema. Mult sores and abrasions on his arms and legs. Both lower legs still erythematous, improved somewhat from admission as far as I can tell from looking at his admission photos. Does not look to me like he currently has cellulitis. CURRENT MEDICATIONS include: Unasyn Betamethasone topical Bumex 2 mg IV bid Pepcid 20 mg daily Heparin 5000 units Q8h Insulin SQ sliding scale Levothyroxine D5W @ 75cc/hr LABORATORY DATA: As below. Notably, Na down to 140, BUN/creat down slightly fu rther after stopping the diuresis and giving him D5W yesterday. IMPRESSION: 1. Underlying obesity, congestive heart failure, COPD 2. Obtundation. Etiology still undiscovered. Most likely metabolic, in which case the most likely (the only) culprit would be the propofol. Discussed with Dr. Garzon yesterday, his other suggestion would be to do a LP, which I will do today. Discussed with his at the bedside at some length, and consent obtained. 3. Acute on chronic congestive heart failure, with right heart failure, by 2D echo. 4. Acute hypercapnic respiratory failure. Serum bicarb levels were normal on admission, which is inconsistent with chronic CO2 retention. A venous blood gas done 05/10 showed normal pCO2. What accounted for his sudden hypercarbia the next morning, 05/11, is not certain, (he did not get any opiates), but was most likely 2? aspiration, as shown by the CXR. 5. Acute renal failure. Undoubtedly has cardiorenal syndrome. When acute resp failure occurs in patients with RHF and acute renal failure, the mortality rate is very high. RHF will limit the amount he can be diuresed. Stopped the diuresis on 05/14 and his indices are improving somewhat. He?s got no JVD, minimal edema. I think he?s as dry as he can get. 6. Hypernatremia. Resolved with D5W infusion. D/C IVF now. 7. DM. Continue insulin SQ sliding scale. 8. Underlying history of hypothyroidism. On Levothyroid. 9. ID: Pulmonary aspiration with resultant aspiration pneumonia. Empirically covered with Unasyn. Does not look like he has lower extremity cellulitis at this time. More likely has chronic venous stasis dermatitis changes. 10. Cervical myelopathy. I spoke with Dr. Manning from neurosurgery at [facility] at some length. Read him the MRI report. In his opinion, the patient would need surgery, but would not be a candidate until his encephalopathy is resolved. Does not need a collar at this time. If needed to be intubated, use in-line stabilization with Glidescope. 11. Nutrition. On tube feeds. 12. Met alkalosis. Rx two doses of Diamox. Critical care time (excluding procedures): 80+ min Physical Exam Vital Signs: Vital Signs: Last Vital Signs Temp 99.7 F 05/16/20 11:00 Pulse 59 05/16/20 11:00 Resp 16 05/16/20 11:00 BP 131/49 L 05/16/20 11:00 Pulse Ox 96 05/16/20 11:00 Body Mass Index 40.4 Objective Data Labs CBC & Chem 7: 05/16/20 06:12 05/16/20 06:12 Labs: Laboratory Results - last 24 hr 05/11/20 05/15/20 05/15/20 08:00 15:25 17:18 WBC RBC Hgb Hct MCV MCH MCHC RDW Plt Count MPV Immature Gran % (Auto) Neut % (Auto) Lymph % (Auto) [place] % (Auto) Eos % (Auto) Baso % (Auto) Lymph # (Auto) [place] # (Auto) Eos # (Auto) Baso # (Auto) Abs Immat Gran (auto) Absolute Neuts (auto) Absolute Nucleated RBC Nucleated RBC % (auto) Smear Tech's Comments VBG pH VBG pCO2 VBG pO2 VBG HCO3 VBG O2 Saturation VBG Base Excess Sodium Potassium Chloride Carbon Dioxide Anion Gap BUN Creatinine Estim Creat Clear Calc Estimated GFR POC Glucose 189 H 201 H Random Glucose Calcium Phosphorus Total Bilirubin AST ALT Alkaline Phosphatase Total Protein Albumin Complement C3 187 H Complement C4 68 H 05/15/20 05/16/20 05/16/20 23:13 06:12 06:12 WBC 9.7 RBC 2.88 L Hgb 8.2 L Hct 27.1 L MCV 94.1 MCH 28.5 MCHC 30.3 L RDW 15.9 Plt Count 461 H MPV 10.5 Immature Gran % (Auto) 0.8 H Neut % (Auto) 84.0 H Lymph % (Auto) 4.8 L [place] % (Auto) 6.1 Eos % (Auto) 4.0 Baso % (Auto) 0.3 Lymph # (Auto) 0.5 L [place] # (Auto) 0.6 Eos # (Auto) 0.4 Baso # (Auto) 0.0 Abs Immat Gran (auto) 0.08 H Absolute Neuts (auto) 8.1 Absolute Nucleated RBC 0.000 Nucleated RBC % (auto) 0.0 Smear Tech's Comments VERIFIED VBG pH VBG pCO2 VBG pO2 VBG HCO3 VBG O2 Saturation VBG Base Excess Sodium 140 Potassium 4.0 Chloride 101 Carbon Dioxide 29 Anion Gap 14 BUN 56 H Creatinine 2.94 H Estim Creat Clear Calc 24.4 Estimated GFR 21 POC Glucose 190 H Random Glucose 250 H D Calcium 8.1 L Phosphorus 4.3 Total Bilirubin 0.7 AST 35 ALT 38 Alkaline Phosphatase 98 Total Protein 6.4 L Albumin 3.1 L Complement C3 Complement C4 05/16/20 05/16/20 06:18 06:26 WBC RBC Hgb Hct MCV MCH MCHC RDW Plt Count MPV Immature Gran % (Auto) Neut % (Auto) Lymph % (Auto) [place] % (Auto) Eos % (Auto) Baso % (Auto) Lymph # (Auto) [place] # (Auto) Eos # (Auto) Baso # (Auto) Abs Immat Gran (auto) Absolute Neuts (auto) Absolute Nucleated RBC Nucleated RBC % (auto) Smear Tech's Comments VBG pH 7.39 VBG pCO2 50 VBG pO2 42 VBG HCO3 31 H VBG O2 Saturation 71.0 VBG Base Excess 5.6 Sodium Potassium Chloride Carbon Dioxide Anion Gap BUN Creatinine Estim Creat Clear Calc Estimated GFR POC Glucose 251 H Random Glucose Calcium Phosphorus Total Bilirubin AST ALT Alkaline Phosphatase Total Protein Albumin Complement C3 Complement C4 Microbiology Microbiology Results: Microbiology 05/06/20 14:27 Blood - Venous Blood Culture - Final No growth after 5 days. 05/06/20 14:24 Blood - Venous Blood Culture - Final No growth after 5 days. Progress Note: A&P Time Spent With Patient Time: Total time spent is greater than 50% in coordination of care (as documented) at patient's floor/unit and/or counseling patient: Total time spent with greater than 50% in coordination of care (as documented) at patient's floor/unit and/or counseling patient:: 0 Critical Care Time Critical Care Time (minutes): 90
--- NOTE | 2020-05-16 12:25 | W.PM.CCHP ---
Procedures Lumbar Puncture Lumbar Puncture Comments: PROCEDURE: Diagnostic lumbar puncture. INDICATION: Altered mental status. ANESTHESIA: Local anesthesia. The patient is a 74-year-old man with altered mental status. Negative MRI x 2. On no sedatives. Dr. Garzon requested a diagnostic lumbar puncture. Consent for the procedure was obtained from the patient's . The procedure was done in the sitting position. After prepping the back, local anesthesia with 1% lidocaine was infiltrated in the L4-L5 interspace. A 20 gauge Quicke spinal needle was advanced in the midline and unable to obtain CSF. The L3-L4 interspace was then attempted, without success. The L3-L4 interspace was then attempted via the right paramedian approach. The needle smoothly entered clear CSF. No heme or obvious paresthesia. Opening pressure was measured at 36 cm. Following that 4 tubes of CSF were drawn, 1-2 cc per tube. Clear CSF. No gross difference between tube 1 and tube 4. Following that, the needle was withdrawn and the patient replaced supine. The patient tolerated the procedure well with no complications. Specimens to Micro, chemistry, and hematology.
[2020-05-16 12:32] LABS: Glucose, Whole Blood 215 mg/dL (60-115)
[2020-05-16 13:15] LABS: CSF Appearance Clear, Colorless; CSF Tube # 2
--- NOTE | 2020-05-16 13:44 | MHC.CM.PN ---
Pt continues in ICU intubated with aspiration pna: MRI notes significant impingement abnormalities: will require surgical intervention (at a tertiary center for neurosurgery) once stable. Original plan was for a return to home: unlikely this is possible given his overall status: CM to follow for finalization of d/c planning.
[2020-05-16 14:15] LABS: Appearance CSF CLEAR; Color CSF COLORLESS; Red Blood Cell CSF 15 MM*3; White Blood Cell CSF 1 MM*3
[2020-05-16 14:16] LABS: CSF Monos 40 %; CSF Tube # 4; Lymphocytes CSF 60 %
[2020-05-16 14:21] LABS: Glucose CSF 165 mg/dL; Total Protein CSF 142.3 mg/dL (15-45)
[2020-05-16] MEDS: methylPREDNISolone Sod Succ 40 MG/ML VIAL IVPUSH (17:53)
[2020-05-16] MEDS: Acetaminophen 325 MG TABLET 650 MG PO (17:54)
[2020-05-16] MEDS: diphenhydrAMINE HCL 50 MG/ML VIAL 25 MG IVPUSH (17:54)
[2020-05-16] MEDS: Lactated Ringers 500 ML IVCONT (17:56)
[2020-05-16 18:06] LABS: Glucose, Whole Blood 220 mg/dL (60-115)
--- NOTE | 2020-05-16 18:50 | P.PNNP_ITS ---
Subjective Subjective Date of Service: 05/16/20 Physical Exam Vital Signs: Vital Signs: Last Vital Signs Temp 98.2 F 05/16/20 17:00 Pulse 51 05/16/20 18:00 Resp 14 05/16/20 18:00 BP 130/43 L 05/16/20 18:00 Pulse Ox 100 05/16/20 18:00 Body Mass Index 40.4 Const: Other: Constitutional : Obtunded, not responsive, sleeping , on vent Neck : Normal inspection, Supple Cardiovascular : RRR, S1 S2, no lower extremity edema Respiratory : Decrease a forced and bilateral air entry, bilateral basal crackles, wheezes or rhonchi Gastrointestinal: soft, lax, Normal bowel sounds, Non tender Skin : Warm/Dry, No rash Neurological : Obtunded, moving all extremities, open eyes to stimuli and follow simple commands, No other focal deficit General: cooperative, no acute distress and other (Sedated on the vent) Nutritional Appearance: obese HENMT: Head: Yes normal to inspection Mouth: Normal oral and palatal mucosa present Eyes: General: appearance normal, both eyes and all related structures Sclerae: sclerae normal EOM: EOMs intact bilaterally Neck: Neck: Yes no lymphadenopathy, Yes trachea midline and Yes supple Resp: Effort & Inspection: normal respiratory effort and no respiratory distress Auscultation: clear to auscultation bilaterally and crackles (Right basilar) Cardio: Other: Constitutional : Obtunded, not responsive, sleeping , on vent Neck : Normal inspection, Supple Cardiovascular : RRR, S1 S2, no lower extremity edema Respiratory : Decrease a forced and bilateral air entry, bilateral basal crackles, wheezes or rhonchi Gastrointestinal: soft, lax, Normal bowel sounds, Non tender Skin : Warm/Dry, No rash Neurological : Obtunded, moving all extremities, open eyes to stimuli and follow simple commands, No other focal deficit Jugular venous distension: no JVD Rate: regular rate Rhythm: regular rhythm Heart sounds: no gallops, no murmurs and no rubs GI: Palpation (GI): Soft to palpation, nontender and Other GI palpation findings present ( Nontender) Auscultation: normal bowel sounds Skin: Other: bilateral venous stasis changes,chronic legs General skin exam: no rashes or lesions noted Lesions: lesion noted and other (ulcer bekah and redness) Extrem: Other: slight decreased erythema legs General: No clubbing, No cyanosis, Yes pedal edema (1+ bilateral) and Yes venous stasis dermatitis (Bilateral lower extremity) Objective Data Labs CBC & Chem 7: 05/16/20 06:12 05/16/20 06:12 Labs: Laboratory Results - last 24 hr 05/15/20 05/16/20 05/16/20 23:13 06:12 06:12 WBC 9.7 RBC 2.88 L Hgb 8.2 L Hct 27.1 L MCV 94.1 MCH 28.5 MCHC 30.3 L RDW 15.9 Plt Count 461 H MPV 10.5 Immature Gran % (Auto) 0.8 H Neut % (Auto) 84.0 H Lymph % (Auto) 4.8 L [place] % (Auto) 6.1 Eos % (Auto) 4.0 Baso % (Auto) 0.3 Lymph # (Auto) 0.5 L [place] # (Auto) 0.6 Eos # (Auto) 0.4 Baso # (Auto) 0.0 Abs Immat Gran (auto) 0.08 H Absolute Neuts (auto) 8.1 Absolute Nucleated RBC 0.000 Nucleated RBC % (auto) 0.0 Smear Tech's Comments VERIFIED VBG pH VBG pCO2 VBG pO2 VBG HCO3 VBG O2 Saturation VBG Base Excess Sodium 140 Potassium 4.0 Chloride 101 Carbon Dioxide 29 Anion Gap 14 BUN 56 H Creatinine 2.94 H Estim Creat Clear Calc 24.4 Estimated GFR 21 POC Glucose 190 H Random Glucose 250 H D Calcium 8.1 L Phosphorus 4.3 Total Bilirubin 0.7 AST 35 ALT 38 Alkaline Phosphatase 98 Total Protein 6.4 L Albumin 3.1 L CSF Tube Number CSF Volume CSF Appearance CSF Color CSF WBC CSF RBC CSF Lymphocytes CSF Monocytes % CSF Appearance (b) CSF Glucose CSF Total Protein 05/16/20 05/16/20 05/16/20 06:18 06:26 12:28 WBC RBC Hgb Hct MCV MCH MCHC RDW Plt Count MPV Immature Gran % (Auto) Neut % (Auto) Lymph % (Auto) [place] % (Auto) Eos % (Auto) Baso % (Auto) Lymph # (Auto) [place] # (Auto) Eos # (Auto) Baso # (Auto) Abs Immat Gran (auto) Absolute Neuts (auto) Absolute Nucleated RBC Nucleated RBC % (auto) Smear Tech's Comments VBG pH 7.39 VBG pCO2 50 VBG pO2 42 VBG HCO3 31 H VBG O2 Saturation 71.0 VBG Base Excess 5.6 Sodium Potassium Chloride Carbon Dioxide Anion Gap BUN Creatinine Estim Creat Clear Calc Estimated GFR POC Glucose 251 H 215 H Random Glucose Calcium Phosphorus Total Bilirubin AST ALT Alkaline Phosphatase Total Protein Albumin CSF Tube Number CSF Volume CSF Appearance CSF Color CSF WBC CSF RBC CSF Lymphocytes CSF Monocytes % CSF Appearance (b) CSF Glucose CSF Total Protein 05/16/20 05/16/20 05/16/20 12:30 12:30 18:02 WBC RBC Hgb Hct MCV MCH MCHC RDW Plt Count MPV Immature Gran % (Auto) Neut % (Auto) Lymph % (Auto) [place] % (Auto) Eos % (Auto) Baso % (Auto) Lymph # (Auto) [place] # (Auto) Eos # (Auto) Baso # (Auto) Abs Immat Gran (auto) Absolute Neuts (auto) Absolute Nucleated RBC Nucleated RBC % (auto) Smear Tech's Comments VBG pH VBG pCO2 VBG pO2 VBG HCO3 VBG O2 Saturation VBG Base Excess Sodium Potassium Chloride Carbon Dioxide Anion Gap BUN Creatinine Estim Creat Clear Calc Estimated GFR POC Glucose 220 H Random Glucose Calcium Phosphorus Total Bilirubin AST ALT Alkaline Phosphatase Total Protein Albumin CSF Tube Number 2 4 CSF Volume 1.0 CSF Appearance CLEAR CSF Color COLORLESS CSF WBC 1 CSF RBC 15 CSF Lymphocytes 60 CSF Monocytes % 40 CSF Appearance (b) Clear, Colorless CSF Glucose 165 CSF Total Protein 142.3 H Microbiology Microbiology Results: Microbiology 05/16/20 12:30 Cerebrospinal Fluid Gram Stain - Final 05/16/20 12:30 Cerebrospinal Fluid CSF Examination - Final 05/16/20 12:30 Cerebrospinal Fluid Fluid Description - Final 05/06/20 14:27 Blood - Venous Blood Culture - Final No growth after 5 days. 05/06/20 14:24 Blood - Venous Blood Culture - Final No growth after 5 days. Assessment & Plan Assessment and plan (1) Cellulitis: Problem details: resolved Status: Acute Assessment and Plan: 74 year old man with history of CHF and hypothyroidism admitted with acute encephalopathy related to dehydration and cellulitis and noted renal dysfunc and hyperNa Now decomp resp status req inutbation 1. Non-Oliguric JETT: SCr remains stable at 3.0 range; sepsis assoc ATN and a risk prog to point of possibly needing HD in next 24-48 hrs 2. CKD 3b: bsl SCr 2.0; etiol unlcear but its been longstanding; UA unremarkable; suspecty age related vs HTN nephrosclerosis 3.. HyperNa: resolved 4.. cellulitis 5, Rsp failure: on vent 6. Sepsis REC: no indication for dialysis yet but will cont to track closley; cont to track UOP and renal func; avoid NToxins; optimize hemodyanamics/resp as per ICU team will follow with team Time Spent With Patient Time: Total time spent is greater than 50% in coordination of care (as documented) at patient's floor/unit and/or counseling patient:
[2020-05-16] MEDS: HYDROmorphone HCl 0.5 MG/0.5 ML SYRINGE IVPUSH (19:46)
[2020-05-16 23:28] LABS: Glucose, Whole Blood 231 mg/dL (60-115)
[2020-05-17] VITALS (32 sets, daily range): BP systolic 92–145; BP diastolic 32–57; PULSE 45–68; RESP 14–18; TEMP 35.7–37.3; O2SAT 95–100; BMI 41.0
[2020-05-17] MEDS: Ampicillin Sodium/Sulbactam Na 3 GM in 0.9 % Sodium Chloride 100 ML IV ×2 (02:27→14:34)
[2020-05-17 05:33] LABS: Glucose, Whole Blood 276 mg/dL (60-115)
[2020-05-17] MEDS: Insulin Lispro 100 UNIT/ML 3 ML VIAL SUBCUT ×3 (05:50→23:50)
[2020-05-17 06:01] LABS: VBG Base Excess 4.2 mmol/L; VBG HCO3 30 mmol/L (22-26); VBG pCO2 51 mmHg; VBG pH 7.37 (7.32-7.43); VBG pO2 58 mmHg
[2020-05-17 06:01] LABS: Venous Blood Gas Refer to POC result
[2020-05-17] MEDS: Levothyroxine Sodium 125 MCG TABLET PO (07:42)
[2020-05-17] MEDS: Famotidine/PF 20 MG/2 ML VIAL IVPUSH (07:42)
[2020-05-17] MEDS: Chlorhexidine Gluc Oral Rinse 15 ML MOUTHWASH BUCCAL ×3 (07:42→22:11)
[2020-05-17] MEDS: Heparin Sodium,Porcine 5,000 UNIT/ML VIAL 5000 UNIT SUBCUT ×3 (07:42→23:52)
[2020-05-17] MEDS: Betamethasone Dip Aug 0.05% Cr 15 GM TUBE 1 APPL TOPICAL ×2 (07:43→22:12)
[2020-05-17] MEDS: Nystatin Powder 15 GM BOTTLE 1 APPL TOPICAL ×3 (07:43→22:12)
[2020-05-17] MEDS: 0.9 % Sodium Chloride Flush 3 ML SYRINGE IVFLUSH ×3 (07:54→23:49)
--- NOTE | 2020-05-17 12:15 | MHC.CLN ---
F/U PT RECEIVING TF JEVITY AT MAX GOAL RATE 50CC/HR WITH 240CC Q 6HRS PROVIDES 1272KCALS, 53G PROTEIN (.85G/KG), 1962CC TOTAL WATER FROM FORMULA AND FLUSHES 32CC/KG) PT WITH SLIGHTLY ELEVATED BS RECOMMEND CHANGING TF FORMULA TO GLUCERNA AT MAX GOAL RATE 60CC/HR WITH 120CC FREE WATER Q 6 HRS TO PROVIDE 1440KCALS (23KCALS/KG BASED ON IBW), 60G PROTEIN (1.0G/KG), 1708CC FREE WATER FROM FORMULA AND FLUSHES (27.5CC/KG BASED ON IBW) MONITOR TOLERANCE, RESIDUALS AND LYTES
[2020-05-17 12:16] LABS: Glucose, Whole Blood 162 mg/dL (60-115)
[2020-05-17] MEDS: Acetaminophen 325 MG TABLET 650 MG PO (17:44)
[2020-05-17] MEDS: methylPREDNISolone Sod Succ 40 MG/ML VIAL IVPUSH (17:45)
[2020-05-17] MEDS: diphenhydrAMINE HCL 50 MG/ML VIAL 25 MG IV (17:45)
--- NOTE | 2020-05-17 17:50 | P.PNCC_ITS ---
Subjective Subjective Date of Service: 05/17/20 Interval History: Mr. Lozano was admitted to ICU on May 11 [facility] of acute hypercarbic resp failure, likely 2? aspiration. The patient is a 74 yo male with PMHx of DM, HTN, long time smoker, CHF, CKD (39/2.1 in 2018), and Hypothyroidism. He has chronic wounds on his legs for unclear reasons. According to the patient?s , he was managing his wounds by himself at home. On May 06, the patient?s called EMS bec of altered MS. According to EMS and the patient, he was sent to the emergency room by request of the patient's 's bec she believed that he?d been altered for the previous 5-10 days. In the ED, the patient was oriented X 3 and neurologically intact according to the ED physician, but the hospitalist thought he was confused. He denied any complaints. He was hypothermic to 92.6? however. Both of his lower legs had venous stasis changes and looked cellulitic. WBC was normal. Na was 149, BUN/creat were 50/2.2. CXR and head CT showed NAD. He was treated with fluids and antibiotics. He was admitted to medicine and given Zosyn and doxycycline. He remained largely obtunded, thought 2? metabolic encephalopathy. No blood gasses were done. Blood cultures were negative. Antibiotics were changed to clindamycin at the suggestion of ID. Overnight on May 10, the patient became hypoxemic. That morning May 11, chest x-ray for the 1st time showed significant bibasilar ill-defined infiltrate s. Later that morning, an ABG showed severe hypercarbia. The patient was therefore intubated and tx to ICU, where he subsequently required bronchoscopy for refractory hypoxemia with heavy tracheal secretion burden that was unable to be cleared out by in-line suction. The patient was extubated on 05/12/2020, however required re-intubation the same day secondary to recurrent pulmonary aspiration resulting in hypoxic and hypercapnic respiratory failure. ECHO on May 12 showed: - Normal left ventricular size and systolic function, w moderately increased left ventricular wall thickness. EF 60-65%. - Elevated filling pressures. - Mildly increased RV cavity size, w normal RV systolic function. - IVC is dilated w <50% inspiratory collapse. The patient underwent brain MRI on March 12, which was read by the neuroradiologist as showing various nonspecific signal changes of unclear significance. An MRI with contrast was recommended. Also noted was a severe disc protrusion at C4-C5 w mass effect on the cervical spinal cord and severe central canal stenosis; a cervical spine MRI was rec. The propofol was turned off on May 14 in the morning, and he hasn?t yet become interactive. Best neuro response has been partial eye opening to stimulation, but nothing purposeful. No response to commands or confrontation. EEG done on 05/14 showed ?moderately abnormal EEG due to diffuse background slowing consistent with a diffuse encephalopathic process. No epileptiform discharges seen.? We repeated the MRI with contrast on 05/15 and did the c-spine MR. By report, there is no abnormal mass or enhancement in the brain. The c-spine shows severe canal stenosis with compression of the cervical spinal cord at C4-C5 and C5-C6 w AP narrowing of the canal at the level of C1, and severe bilateral neuroforaminal encroachment at C4-C5 and C5-C6. I spoke w the patient?s and she said he?s had leg weakness and has been using a walker for some years. He also has bilat upp extrem weakness, hard to raise his arms above his shoulders. I did a diagnostic LP yesterday. Everything was normal except for a very high protein level. That would be c/w [place] syndrome, so we started him on IVIG last night. Plan a five day course. Neuro exam today is unchanged, no improvement. All sedatives still off. He moves all four extrems spontaneously, jacquelyn both arms. Moves his head around spontaneously, and occ partially opens eyes spontaneously, but no purposeful interaction. solid waste engineer seem intact, no gross neuro focality. PERRL about 5mm. Positive corneals. See Vital Signs below. He?s on Levophed 0.09ug. No sedation. HR 68, SR. BP 135/53. T 99.5?. On BiLevel 14, pressures 26/8, PSV 24/35%, RR is 16, Vt is 530cc, Ve is 8.L, ETCO2 36, Sat 98%. CVBG this morning showed 7.37/51/+4. No JVD at 30?. Chest shows diffuse light rhonchi, with normal exp phase. Abdomen has good BS, benign. Minimal edema. Mult sores and abrasions on his arms and legs. Both lower legs still erythematous, improved somewhat from admission as far as I can tell from looking at his admission ph jovany. Does not look to me like he currently has cellulitis. CURRENT MEDICATIONS include: Unasyn day#7 Betamethasone topical Pepcid 20 mg daily Heparin 5000 units Q8h IVIG Solumedrol (for the IVIG) Insulin SQ sliding scale Levothyroxine LABORATORY DATA: As below. IMPRESSION: 1. Underlying obesity, congestive heart failure, COPD 2. Obtundation. Etiology still undiscovered. 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 But his symptom history is not really consistent with GBS. If the cause is metabolic, the most likely (the only) culprit would be the propofol, but we?re running out of time on that too. Spoke with his again today at the bedside. 3. Acute on chronic congestive heart failure, with right heart failure, by 2D echo. 4. Acute hypercapnic respiratory failure. Serum bicarb levels were normal on admission, which is inconsistent with chronic CO2 retention. A venous blood gas done 05/10 showed normal pCO2. What accounted for his sudden hypercarbia the next morning, 05/11, is not certain, (he did not get any opiates), but was most likely 2? aspiration, as shown by the CXR. 5. ID: Pulmonary aspiration with resultant aspiration pneumonia. Empirically covered with Unasyn. D/C today after 7-day course. Does not look like he has lower extremity cellulitis at this time. More likely has chronic venous stasis dermatitis changes. 6. Acute renal failure. Undoubtedly has cardiorenal syndrome. When acute resp failure occurs in patients with RHF and acute renal failure, the mortality rate is very high. RHF will limit the amount he can be diuresed. Stopped the diuresis on 05/14 and his indices are improving somewhat. He?s got no JVD, minimal edema. I think he?s as dry as he can get. 7. Hypernatremia. Resolved with D5W infusion. 8. DM. Continue insulin SQ sliding scale. 9. Underlying history of hypothyroidism. On Levothyroid. 10. Cervical myelopathy. I spoke with Dr. Manning from neurosurgery at [facility]. Read him the MRI report. In his opinion, the patient would need surgery, but would not be a candidate until his encephalopathy is resolved. Does not need a collar at this time. If needed to be intubated, use in-line stabilization with Glidescope. 11. Nutrition. On tube feeds. 12. Met alkalosis. Rx another two doses of Diamox. Critical care time: 60 min Physical Exam Vital Signs: Vital Signs: Last Vital Signs Temp 98.2 F 05/17/20 16:53 Pulse 60 05/17/20 16:53 Resp 14 05/17/20 16:53 BP 122/33 L 05/17/20 16:53 Pulse Ox 100 05/17/20 16:53 Body Mass Index 41.0 Objective Data Labs CBC & Chem 7: 05/16/20 06:12 05/16/20 06:12 Labs: Laboratory Results - last 24 hr 05/16/20 05/16/20 05/16/20 12:30 18:02 23:24 VBG pH VBG pCO2 VBG pO2 VBG HCO3 VBG O2 Saturation VBG Base Excess POC Glucose 220 H 231 H CSF Mening/Enceph PCR SEE NOTE 05/17/20 05/17/20 05/17/20 05:30 05:55 12:12 VBG pH 7.37 VBG pCO2 51 VBG pO2 58 VBG HCO3 30 H VBG O2 Saturation 84.0 VBG Base Excess 4.2 POC Glucose 276 H 162 H CSF Mening/Enceph PCR Microbiology Microbiology Results: Microbiology 05/16/20 12:30 Cerebrospinal Fluid Gram Stain - Final 05/16/20 12:30 Cerebrospinal Fluid CSF Examination - Final 05/16/20 12:30 Cerebrospinal Fluid Fluid Description - Final 05/16/20 12:30 Cerebrospinal Fluid CSF Culture - Preliminary No growth after 1 day 05/06/20 14:27 Blood - Venous Blood Culture - Final No growth after 5 days. 05/06/20 14:24 Blood - Venous Blood Culture - Final No growth after 5 days. Progress Note: A&P Time Spent With Patient Time: Total time spent is greater than 50% in coordination of care (as documented) at patient's floor/unit and/or counseling patient: Total time spent with greater than 50% in coordination of care (as documented) at patient's floor/unit and/or counseling patient:: 0 Critical Care Time Critical Care Time (minutes): 60
[2020-05-17 18:11] LABS: Glucose, Whole Blood 145 mg/dL (60-115)
--- NOTE | 2020-05-17 19:04 | PC.NURSE ---
Making non purposeful movements, does not follow commands. positive cough/gag. Afebrilel, vss. Leveophed gtt titrated per emar. Vent settings continued to be bilevel, rate 14, peep high 26, peep low 8, fio2 35%. Suctioned thin clear secretions. Urine output wnl, moderate BM. Tube feed changed to Glucerna at 60ml/hr, q8 free water of 240mls. Bathed, barrier cream, foam on coccyx, legs. Repo q2hr, prevalon mattress system used. Family bedside and updated throughout day.
[2020-05-17] MEDS: HYDROmorphone HCl 0.5 MG/0.5 ML SYRINGE IVPUSH (19:47)
[2020-05-17] MEDS: acetaZOLAMIDE 250 MG TABLET G-TUBE (22:10)
--- NOTE | 2020-05-17 23:45 | PM.PNNEP ---
Subjective Subjective Date of Service: 05/17/20 Interval history: Seen and examined. Events noted Physical Exam Vital Signs: Vital Signs: Last Vital Signs Temp 98.4 F 05/17/20 23:00 Pulse 68 05/17/20 23:00 Resp 15 05/17/20 23:00 BP 145/52 H 05/17/20 23:00 Pulse Ox 97 05/17/20 23:00 Body Mass Index 41.0 Const: Other: Constitutional : Obtunded, not responsive, sleeping , on vent Neck : Normal inspection, Supple Cardiovascular : RRR, S1 S2, no lower extremity edema Respiratory : Decrease a forced and bilateral air entry, bilateral basal crackles, wheezes or rhonchi Gastrointestinal: soft, lax, Normal bowel sounds, Non tender Skin : Warm/Dry, No rash Neurological : Obtunded, moving all extremities, open eyes to stimuli and follow simple commands, No other focal deficit General: cooperative, no acute distress and other (Sedated on the vent) Nutritional Appearance: obese HENMT: Head: Yes normal to inspection Mouth: Normal oral and palatal mucosa present Eyes: General: appearance normal, both eyes and all related structures Sclerae: sclerae normal EOM: EOMs intact bilaterally Neck: Neck: Yes no lymphadenopathy, Yes trachea midline and Yes supple Resp: Effort & Inspection: normal respiratory effort and no respiratory distress Auscultation: clear to auscultation bilaterally and crackles (Right basilar) Cardio: Other: Constitutional : Obtunded, not responsive, sleeping , on vent Neck : Normal inspection, Supple Cardiovascular : RRR, S1 S2, no lower extremity edema Respiratory : Decrease a forced and bilateral air entry, bilateral basal crackles, wheezes or rhonchi Gastrointestinal: soft, lax, Normal bowel sounds, Non tender Skin : Warm/Dry, No rash Neurological : Obtunded, moving all extremities, open eyes to stimuli and follow simple commands, No other focal deficit Jugular venous distension: no JVD Rate: regular rate Rhythm: regular rhythm Heart sounds: no gallops, no murmurs and no rubs GI: Palpation (GI): Soft to palpation, nontender and Other GI palpation findings present ( Nontender) Auscultation: normal bowel sounds Skin: Other: bilateral venous stasis changes,chronic legs General skin exam: no rashes or lesions noted Lesions: lesion noted and other (ulcer bekah and redness) Extrem: Other: slight decreased erythema legs General: No clubbing, No cyanosis, Yes pedal edema (1+ bilateral) and Yes venous stasis dermatitis (Bilateral lower extremity) Objective Data Labs CBC & Chem 7: 05/16/20 06:12 05/16/20 06:12 Labs: Laboratory Results - last 24 hr 05/16/20 05/17/20 05/17/20 12:30 05:30 05:55 VBG pH 7.37 VBG pCO2 51 VBG pO2 58 VBG HCO3 30 H VBG O2 Saturation 84.0 VBG Base Excess 4.2 POC Glucose 276 H CSF Mening/Enceph PCR SEE NOTE 05/17/20 05/17/20 12:12 18:06 VBG pH VBG pCO2 VBG pO2 VBG HCO3 VBG O2 Saturation VBG Base Excess POC Glucose 162 H 145 H CSF Mening/Enceph PCR Microbiology Microbiology Results: Microbiology 05/16/20 12:30 Cerebrospinal Fluid Gram Stain - Final 05/16/20 12:30 Cerebrospinal Fluid CSF Examination - Final 05/16/20 12:30 Cerebrospinal Fluid Fluid Description - Final 05/16/20 12:30 Cerebrospinal Fluid CSF Culture - Preliminary No growth after 1 day 05/06/20 14:27 Blood - Venous Blood Culture - Final No growth after 5 days. 05/06/20 14:24 Blood - Venous Blood Culture - Final No growth after 5 days. Assessment & Plan Assessment and plan (1) Cellulitis: Problem details: resolved Status: Acute Assessment and Plan: 74 year old man with history of CHF and hypothyroidism admitted with acute encephalopathy related to dehydration and cellulitis and noted renal dysfunc and hyperNa Now decomp resp status req inutbation 1. Non-Oliguric JETT: SCr remains stable at 3.0 range; sepsis assoc ATN and a risk prog to point of possibly needing HD in next 24-48 hrs 2. CKD 3b: bsl SCr 2.0; etiol unlcear but its been longstanding; UA unremarkable; suspecty age related vs HTN nephrosclerosis 3.. HyperNa: resolved 4.. cellulitis 5, Rsp failure: on vent 6. Sepsis 7. Neuro: w/u as noted andnow on IVGG 8. TBFOL: vol status looks ok w chronic venosu stasis REC:no new recs; no indication for dialysis yet but will cont to track closley; cont to track UOP and renal func; avoid NToxins; optimize hemodyanamics/resp as per ICU team will follow with team Time Spent With Patient Time: Total time spent is greater than 50% in coordination of care (as documented) at patient's floor/unit and/or counseling patient:
[2020-05-17 23:52] LABS: Glucose, Whole Blood 253 mg/dL (60-115)
[2020-05-18] VITALS (30 sets, daily range): BP systolic 98–130; BP diastolic 35–63; PULSE 42–130; RESP 13–20; TEMP 35.7–36.7; O2SAT 95–100; BMI 40.8
[2020-05-18] MEDS: Ampicillin Sodium/Sulbactam Na 3 GM in 0.9 % Sodium Chloride 100 ML IV (02:45)
[2020-05-18 06:09] LABS: Basophils Percent Auto 0.1 % (0-2); Hematocrit 25.2 % (42-52); Hemoglobin 7.5 g/dl (14.0-18.0); Imm Gran Abs Auto 0.04 X10*3/uL (0.00-0.03); Imm Gran Pct Auto 0.6 % (0.0-0.4); Lymphocytes Absolute Auto 0.4 X10*3/uL (1.2-4.9); Lymphocytes Percent Auto 5.4 % (20-40); MANUAL DIFF FLAG SCAN; Mean Corpuscular HGB Conc 29.8 g/dl (31.0-36.0); Mean Corpuscular Hemoglobin 28.6 pg (27.0-33.0); Mean Corpuscular Volume 96.2 fL (80-98); Monocytes Absolute Auto 0.3 X10*3/uL (0.1-1.2); Monocytes Percent Auto 4.7 % (2-11); Neutrophils Absolute Auto 6.5 X10*3/uL (2.0-8.3); Neutrophils Percent Auto 89.2 % (45-73); Platelet Count 442 X10*3/uL (160-400); Red Blood Count 2.62 X10*6/uL (4.60-5.80); Red Cell Distribution Width 15.3 % (11.0-16.0); SCAN SMEAR FLAG 1; White Blood Count 7.3 X10*3/uL (4.8-10.8)
[2020-05-18 06:13] LABS: Venous Blood Gas Refer to POC result
[2020-05-18 06:14] LABS: VBG Base Excess 2.5 mmol/L; VBG HCO3 28 mmol/L (22-26); VBG pCO2 50 mmHg; VBG pH 7.35 (7.32-7.43); VBG pO2 99 mmHg
[2020-05-18 06:16] LABS: Glucose, Whole Blood 176 mg/dL (60-115)
[2020-05-18] MEDS: Insulin Lispro 100 UNIT/ML 3 ML VIAL SUBCUT ×2 (06:18→23:47)
[2020-05-18 06:31] LABS: Alanine Aminotransferase 36 U/L (0-40); Alkaline Phosphatase 83 U/L (39-117); Anion Gap 14 (12-20); Aspartate Amino Transferase 32 U/L (5-37); Bilirubin Total 0.5 mg/dL (0.0-1.0); Blood Urea Nitrogen 67 mg/dL (9-16); Calcium 7.8 mg/dL (8.4-10.2); Carbon Dioxide 25 mmol/L (22-29); Chloride 102 mmol/L (96-108); Creatinine Clr Calc Pharmacy 24.2; Estimated Glomerular Filt Rate 20; Glucose Random 215 mg/dL (60-115); Potassium 4.2 mmol/L (3.3-5.1); Sodium 137 mmol/L (135-145); Total Protein 7.3 g/dL (6.5-8.0)
[2020-05-18] MEDS: acetaZOLAMIDE 250 MG TABLET G-TUBE (08:24)
[2020-05-18] MEDS: Heparin Sodium,Porcine 5,000 UNIT/ML VIAL 5000 UNIT SUBCUT ×3 (08:25→23:47)
[2020-05-18] MEDS: Famotidine/PF 20 MG/2 ML VIAL IVPUSH (08:25)
[2020-05-18] MEDS: Chlorhexidine Gluc Oral Rinse 15 ML MOUTHWASH BUCCAL ×3 (08:25→20:58)
[2020-05-18] MEDS: 0.9 % Sodium Chloride Flush 3 ML SYRINGE IVFLUSH ×3 (08:25→23:48)
[2020-05-18] MEDS: HYDROmorphone HCl 0.5 MG/0.5 ML SYRINGE IVPUSH ×3 (08:26→16:06)
[2020-05-18] MEDS: Levothyroxine Sodium 125 MCG TABLET PO (08:30)
[2020-05-18 09:42] LABS: SLIDE REVIEW VERIFIED
[2020-05-18] MEDS: Nystatin Powder 15 GM BOTTLE 1 APPL TOPICAL ×3 (11:18→20:58)
[2020-05-18] MEDS: Betamethasone Dip Aug 0.05% Cr 15 GM TUBE 1 APPL TOPICAL ×2 (11:19→21:18)
[2020-05-18 11:52] LABS: Glucose, Whole Blood 139 mg/dL (60-115)
--- NOTE | 2020-05-18 12:43 | MHC.CM.PN ---
Pt continues on ventilatory support: DNR but family would like reintubation if needed: LP results pending: Responding only to painful stimuli. D/C plan determined by pt's ability to make clinical progress. Family hoping for a return to home but this seems very unlikely. CM to follow on 05/21
[2020-05-18] MEDS: Acetaminophen 325 MG TABLET 650 MG PO (18:43)
[2020-05-18] MEDS: methylPREDNISolone Sod Succ 40 MG/ML VIAL IVPUSH (18:43)
[2020-05-18] MEDS: diphenhydrAMINE HCL 50 MG/ML VIAL 25 MG IV (18:44)
[2020-05-18 18:59] LABS: Glucose, Whole Blood 131 mg/dL (60-115)
--- NOTE | 2020-05-18 19:11 | PM.PNNEP ---
Subjective Subjective Date of Service: 05/18/20 Interval history: Seen and examined. Events noted Physical Exam Vital Signs: Vital Signs: Last Vital Signs Temp 96.4 F L 05/18/20 18:00 Pulse 53 05/18/20 18:00 Resp 14 05/18/20 18:00 BP 113/49 L 05/18/20 18:00 Pulse Ox 97 05/18/20 18:00 Body Mass Index 40.8 Const: Other: Constitutional : Obtunded, not responsive, sleeping , on vent Neck : Normal inspection, Supple Cardiovascular : RRR, S1 S2, no lower extremity edema Respiratory : Decrease a forced and bilateral air entry, bilateral basal crackles, wheezes or rhonchi Gastrointestinal: soft, lax, Normal bowel sounds, Non tender Skin : Warm/Dry, No rash Neurological : Obtunded, moving all extremities, open eyes to stimuli and follow simple commands, No other focal deficit General: cooperative, no acute distress and other (Sedated on the vent) Nutritional Appearance: obese HENMT: Head: Yes normal to inspection Mouth: Normal oral and palatal mucosa present Eyes: General: appearance normal, both eyes and all related structures Sclerae: sclerae normal EOM: EOMs intact bilaterally Neck: Neck: Yes no lymphadenopathy, Yes trachea midline and Yes supple Resp: Effort & Inspection: normal respiratory effort and no respiratory distress Auscultation: clear to auscultation bilaterally and crackles (Right basilar) Cardio: Other: Constitutional : Obtunded, not responsive, sleeping , on vent Neck : Normal inspection, Supple Cardiovascular : RRR, S1 S2, no lower extremity edema Respiratory : Decrease a forced and bilateral air entry, bilateral basal crackles, wheezes or rhonchi Gastrointestinal: soft, lax, Normal bowel sounds, Non tender Skin : Warm/Dry, No rash Neurological : Obtunded, moving all extremities, open eyes to stimuli and follow simple commands, No other focal deficit Jugular venous distension: no JVD Rate: regular rate Rhythm: regular rhythm Heart sounds: no gallops, no murmurs and no rubs GI: Palpation (GI): Soft to palpation, nontender and Other GI palpation findings present ( Nontender) Auscultation: normal bowel sounds Skin: Other: bilateral venous stasis changes,chronic legs General skin exam: no rashes or lesions noted Lesions: lesion noted and other (ulcer bekah and redness) Extrem: Other: slight decreased erythema legs General: No clubbing, No cyanosis, Yes pedal edema (1+ bilateral) and Yes venous stasis dermatitis (Bilateral lower extremity) Objective Data Labs CBC & Chem 7: 05/18/20 06:00 05/18/20 06:00 Labs: Laboratory Results - last 24 hr 05/17/20 05/18/20 05/18/20 23:48 06:00 06:00 WBC 7.3 RBC 2.62 L Hgb 7.5 L Hct 25.2 L MCV 96.2 MCH 28.6 MCHC 29.8 L RDW 15.3 Plt Count 442 H MPV 10.0 Immature Gran % (Auto) 0.6 H Neut % (Auto) 89.2 H Lymph % (Auto) 5.4 L [place] % (Auto) 4.7 Eos % (Auto) 0.0 Baso % (Auto) 0.1 Lymph # (Auto) 0.4 L [place] # (Auto) 0.3 Eos # (Auto) 0.0 Baso # (Auto) 0.0 Abs Immat Gran (auto) 0.04 H Absolute Neuts (auto) 6.5 Absolute Nucleated RBC 0.000 Nucleated RBC % (auto) 0.0 Smear Tech's Comments VERIFIED VBG pH VBG pCO2 VBG pO2 VBG HCO3 VBG O2 Saturation VBG Base Excess Sodium 137 Potassium 4.2 Chloride 102 Carbon Dioxide 25 Anion Gap 14 BUN 67 H Creatinine 3.04 H Estim Creat Clear Calc 24.2 Estimated GFR 20 POC Glucose 253 H Random Glucose 215 H Calcium 7.8 L Total Bilirubin 0.5 AST 32 ALT 36 Alkaline Phosphatase 83 Total Protein 7.3 Albumin 3.0 L 05/18/20 05/18/20 05/18/20 06:04 06:12 11:39 WBC RBC Hgb Hct MCV MCH MCHC RDW Plt Count MPV Immature Gran % (Auto) Neut % (Auto) Lymph % (Auto) [place] % (Auto) Eos % (Auto) Baso % (Auto) Lymph # (Auto) [place] # (Auto) Eos # (Auto) Baso # (Auto) Abs Immat Gran (auto) Absolute Neuts (auto) Absolute Nucleated RBC Nucleated RBC % (auto) Smear Tech's Comments VBG pH 7.35 VBG pCO2 50 VBG pO2 99 VBG HCO3 28 H VBG O2 Saturation 95.0 VBG Base Excess 2.5 Sodium Potassium Chloride Carbon Dioxide Anion Gap BUN Creatinine Estim Creat Clear Calc Estimated GFR POC Glucose 176 H 139 H Random Glucose Calcium Total Bilirubin AST ALT Alkaline Phosphatase Total Protein Albumin 05/18/20 18:54 WBC RBC Hgb Hct MCV MCH MCHC RDW Plt Count MPV Immature Gran % (Auto) Neut % (Auto) Lymph % (Auto) [place] % (Auto) Eos % (Auto) Baso % (Auto) Lymph # (Auto) [place] # (Auto) Eos # (Auto) Baso # (Auto) Abs Immat Gran (auto) Absolute Neuts (auto) Absolute Nucleated RBC Nucleated RBC % (auto) Smear Tech's Comments VBG pH VBG pCO2 VBG pO2 VBG HCO3 VBG O2 Saturation VBG Base Excess Sodium Potassium Chloride Carbon Dioxide Anion Gap BUN Creatinine Estim Creat Clear Calc Estimated GFR POC Glucose 131 H Random Glucose Calcium Total Bilirubin AST ALT Alkaline Phosphatase Total Protein Albumin Microbiology Microbiology Results: Microbiology 05/16/20 12:30 Cerebrospinal Fluid Gram Stain - Final 05/16/20 12:30 Cerebrospinal Fluid CSF Examination - Final 05/16/20 12:30 Cerebrospinal Fluid Fluid Description - Final 05/16/20 12:30 Cerebrospinal Fluid CSF Culture - Preliminary No growth after 2 days 05/06/20 14:27 Blood - Venous Blood Culture - Final No growth after 5 days. 05/06/20 14:24 Blood - Venous Blood Culture - Final No growth after 5 days. Assessment & Plan Assessment and plan (1) Cellulitis: Problem details: resolved Status: Acute Assessment and Plan: 74 year old man with history of CHF and hypothyroidism admitted with acute encephalopathy related to dehydration and cellulitis and noted renal dysfunc and hyperNa Now decomp resp status req inutbation 1. Non-Oliguric JETT: SCr remains stable at 3.0 range; sepsis assoc ATN and a risk prog to point of possibly needing HD in next 24-48 hrs 2. CKD 3b: bsl SCr 2.0; etiol unlcear but its been longstanding; UA unremarkable; suspecty age related vs HTN nephrosclerosis 3.. HyperNa: resolved 4.. cellulitis 5, Rsp failure: on vent 6. Sepsis 7. Neuro: w/u as noted andnow on IVGG 8. TBFOL: vol status looks ok w chronic venosu stasis REC: no indication for dialysis yet but will cont to track closley; cont to track UOP and renal func; avoid NToxins; optimize hemodyanamics/resp as per ICU team; cont diuretci as needd prn will follow with team Time Spent With Patient Time: Total time spent is greater than 50% in coordination of care (as documented) at patient's floor/unit and/or counseling patient:
--- NOTE | 2020-05-18 19:33 | P.PNCC_ITS ---
Subjective Subjective Date of Service: 05/18/20 Interval History: Mr. Lozano was admitted to ICU on May 11 [facility] of acute hypercarbic resp failure, likely 2? aspiration. The patient is a 74 yo male with PMHx of DM, HTN, long time smoker, CHF, CKD (39/2.1 in 2018), and Hypothyroidism. He has chronic wounds on his legs for unclear reasons. According to the patient?s , he was managing his wounds by himself at home. On May 06, the patient?s called EMS bec of altered MS. According to EMS and the patient, he was sent to the emergency room by request of the patient's 's bec she believed that he?d been altered for the previous 5-10 days. In the ED, the patient was oriented X 3 and neurologically intact according to the ED physician, but the hospitalist thought he was confused. He denied any complaints. He was hypothermic to 92.6? however. Both of his lower legs had venous stasis changes and looked cellulitic. WBC was normal. Na was 149, BUN/creat were 50/2.2. CXR and head CT showed NAD. He was treated with fluids and antibiotics. He was admitted to medicine and given Zosyn and doxycycline. He remained largely obtunded, thought 2? metabolic encephalopathy. No blood gasses were done. Blood cultures were negative. Antibiotics were changed to clindamycin at the suggestion of ID. THE PATIENT AND FAMILY HAD DECIDED ON DNR STATUS, BUT OK?D SHORT TERM INTUBATION IF NECESSARY. Overnight on May 10, the patient became hypoxemic. That morning May 11, chest x-ray for the 1st time showed significant bibasilar ill-defined infiltrates. Later that morning, an ABG showed severe hypercarbia. The patient was therefore intubated and tx to ICU, where he subsequently required bronchoscopy for refractory hypoxemia with heavy tracheal secretion burden that was unable to be cleared out by in-line suction. The patient was extubated on 05/12/2020, however required re-intubation the same day secondary to recurrent pulmonary aspiration resulting in hypoxic and hypercapnic respiratory failure. ECHO on May 12 showed: - Normal left ventricular size and systolic function, w moderately increased left ventricular wall thickness. EF 60-65%. - Elevated filling pressures. - Mildly increased RV cavity size, w normal RV systolic function. - IVC is dilated w <50% inspiratory collapse. The patient underwent brain MRI on May 11, which was read by the neuroradiologist as showing various nonspecific signal changes of unclear significance. An MRI with contrast was recommended. Also noted was a severe disc protrusion at C4-C5 w mass effect on the cervical spinal cord and severe central canal stenosis. A cervical spine MRI was rec. The propofol was turned off on May 14 in the morning, and he hasn?t yet become interactive. Best neuro response has been partial eye opening to stimulation, but nothing purposeful. No response to commands or confrontation. EEG done on 05/14 showed ?moderately abnormal EEG due to diffuse background slowing consistent with a diffuse encephalopathic process. No epileptiform discharges seen.? We repeated the MRI with contrast on 05/15 and did the c-spine MR. By report, there is no abnormal mass or enhancement in the brain. The c-spine shows severe canal stenosis with compression of the cervical spinal cord at C4-C5 and C5-C6 w AP narrowing of the canal at the level of C1, and severe bilateral neuroforaminal encroachment at C4-C5 and C5-C6. I spoke w the patient?s and she said he?s had leg weakness and has been using a walker for some years. He also has bilat upp extrem weakness, hard to raise his arms above his shoulders. Diagnostic LP on 05/16 showed all labs normal except for a very high protein level. That would be c/w [place] syndrome, so we started him on IVIG, w plan for a five day course. Since then, mental status has improved slightly, but definitely. He opens his eyes wider, he occasionally responds to confrontation, he?s more active in the bed, and he seems to occasionally respond with a nod of the head. But clearly only occasionally, not even most of the time. Moving all four extrems spontaneously. All sedatives still off, just treating him with ? mg Dilaudid when he looks uncomfortable. director of medical staff services seem intact, no gross neuro focality. PERRL about 5mm. See Vital Signs below. He?s on Levophed 0.02ug. HR 40-60?s, SR. BP 120/50. Afebrile. On BiLevel 14, pressures 26/8, PSV 24, 35%, RR is 16, Vt is 540cc, Ve is 8.5L, ETCO2 35, Sat 96%. CVBG this morning showed 7.35/50/+2. No JVD at 30?. Chest shows diffuse light rhonchi, with normal exp phase. Abdomen has good BS, benign. Minimal edema. Mult sores and abrasions on his arms and legs. Both lower legs still erythematous, improved somewhat from admission as far as I can tell from looking at his admission photos. Does not look to me like he currently has cellulitis. CURRENT MEDICATIONS include: Betamethasone topical Pepcid 20 mg daily Heparin 5000 units Q8h IVIG Solumedrol (for the IVIG) Insulin SQ sliding scale Levothyroxine LABORATORY DATA: As below. BUN/creat up to 67/3.0 IMPRESSION: 1. Underlying obesity, congestive heart failure, COPD 2. Obtundation. Etiology still undiscovered. 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 But his symptom history is not really consistent with GBS. If the cause is metabolic, the most likely (the only) culprit would be the propofol, but we?ve pretty much run out of time on that. Given that there is some improvement in his neuro status since we started the IVIG, we?ll continue the 5-day course. 3. Acute on chronic congestive heart failure, with right heart failure, by 2D echo. 4. Acute hypercapnic respiratory failure. Serum bicarb levels were normal on admission, which is inconsistent with chronic CO2 retention. A venous blood gas done 05/10 showed normal pCO2. What accounted for his sudden hypercarbia the next morning, 05/11, is not certain, (he did not get any opiates), but was most likely 2? aspiration, as shown by the CXR. 5. ID: Pulmonary aspiration with resultant aspiration pneumonia. Empirically covered with Unasyn. D/C?d yesterday after 7-day course. Does not look like he has lower extremity cellulitis at this time. More likely has chronic venous stasis dermatitis changes. 6. Acute renal failure. Undoubtedly has cardiorenal syndrome. When acute resp failure occurs in patients with RHF and acute renal failure, the mortality rate is very high. RHF will limit the amount he can be diuresed. Stopped the diuresis on 05/14 and his indices seem to have plateaued. He?s got no JVD, minimal edema. I think he?s as dry as he can get. 7. Hypernatremia. Resolved with D5W infusion. 8. DM. Continue insulin SQ sliding scale. 9. Underlying history of hypothyroidism. On Levothyroid. 10. Cervical myelopathy. I spoke with Dr. Manning from neurosurgery at [facility]. Read him the MRI report. In his opinion, the patient would need surgery, but would not be a candidate until his encephalopathy is resolved. Does not need a collar at this time. If needed to be intubated, use in-line stabilization with Glidescope. 11. Nutrition. On tube feeds. 12. Met alkalosis. Treated w Diamox. Critical care time (mult visits to bedside to assess neuro status): 50+ min Physical Exam Vital Signs: Vital Signs: Last Vital Signs Temp 96.4 F L 05/18/20 19:00 Pulse 48 L 05/18/20 19:00 Resp 14 05/18/20 19:00 BP 119/46 L 05/18/20 19:00 Pulse Ox 98 05/18/20 19:00 Body Mass Index 40.8 Objective Data Labs CBC & Chem 7: 05/18/20 06:00 05/18/20 06:00 Labs: Laboratory Results - last 24 hr 05/17/20 05/18/20 05/18/20 23:48 06:00 06:00 WBC 7.3 RBC 2.62 L Hgb 7.5 L Hct 25.2 L MCV 96.2 MCH 28.6 MCHC 29.8 L RDW 15.3 Plt Count 442 H MPV 10.0 Immature Gran % (Auto) 0.6 H Neut % (Auto) 89.2 H Lymph % (Auto) 5.4 L [place] % (Auto) 4.7 Eos % (Auto) 0.0 Baso % (Auto) 0.1 Lymph # (Auto) 0.4 L [place] # (Auto) 0.3 Eos # (Auto) 0.0 Baso # (Auto) 0.0 Abs Immat Gran (auto) 0.04 H Absolute Neuts (auto) 6.5 Absolute Nucleated RBC 0.000 Nucleated RBC % (auto) 0.0 Smear Tech's Comments VERIFIED VBG pH VBG pCO2 VBG pO2 VBG HCO3 VBG O2 Saturation VBG Base Excess Sodium 137 Potassium 4.2 Chloride 102 Carbon Dioxide 25 Anion Gap 14 BUN 67 H Creatinine 3.04 H Estim Creat Clear Calc 24.2 Estimated GFR 20 POC Glucose 253 H Random Glucose 215 H Calcium 7.8 L Total Bilirubin 0.5 AST 32 ALT 36 Alkaline Phosphatase 83 Total Protein 7.3 Albumin 3.0 L 05/18/20 05/18/20 05/18/20 06:04 06:12 11:39 WBC RBC Hgb Hct MCV MCH MCHC RDW Plt Count MPV Immature Gran % (Auto) Neut % (Auto) Lymph % (Auto) [place] % (Auto) Eos % (Auto) Baso % (Auto) Lymph # (Auto) [place] # (Auto) Eos # (Auto) Baso # (Auto) Abs Immat Gran (auto) Absolute Neuts (auto) Absolute Nucleated RBC Nucleated RBC % (auto) Smear Tech's Comments VBG pH 7.35 VBG pCO2 50 VBG pO2 99 VBG HCO3 28 H VBG O2 Saturation 95.0 VBG Base Excess 2.5 Sodium Potassium Chloride Carbon Dioxide Anion Gap BUN Creatinine Estim Creat Clear Calc Estimated GFR POC Glucose 176 H 139 H Random Glucose Calcium Total Bilirubin AST ALT Alkaline Phosphatase Total Protein Albumin 05/18/20 18:54 WBC RBC Hgb Hct MCV MCH MCHC RDW Plt Count MPV Immature Gran % (Auto) Neut % (Auto) Lymph % (Auto) [place] % (Auto) Eos % (Auto) Baso % (Auto) Lymph # (Auto) [place] # (Auto) Eos # (Auto) Baso # (Auto) Abs Immat Gran (auto) Absolute Neuts (auto) Absolute Nucleated RBC Nucleated RBC % (auto) Smear Tech's Comments VBG pH VBG pCO2 VBG pO2 VBG HCO3 VBG O2 Saturation VBG Base Excess Sodium Potassium Chloride Carbon Dioxide Anion Gap BUN Creatinine Estim Creat Clear Calc Estimated GFR POC Glucose 131 H Random Glucose Calcium Total Bilirubin AST ALT Alkaline Phosphatase Total Protein Albumin Microbiology Microbiology Results: Microbiology 05/16/20 12:30 Cerebrospinal Fluid Gram Stain - Final 05/16/20 12:30 Cerebrospinal Fluid CSF Examination - Final 05/16/20 12:30 Cerebrospinal Fluid Fluid Description - Final 05/16/20 12:30 Cerebrospinal Fluid CSF Culture - Preliminary No growth after 2 days 05/06/20 14:27 Blood - Venous Blood Culture - Final No growth after 5 days. 05/06/20 14:24 Blood - Venous Blood Culture - Final No growth after 5 days. Progress Note: A&P Time Spent With Patient Time: Total time spent is greater than 50% in coordination of care (as documented) at patient's floor/unit and/or counseling patient: Total time spent with greater than 50% in coordination of care (as documented) at patient's floor/unit and/or counseling patient:: 0 Critical Care Time Critical Care Time (minutes): 60
--- NOTE | 2020-05-18 19:41 | PC.NURSE ---
assumed care at 0700. patient off all sedation, was found to be PERRL, positive cough and gag, responds to light pain as well as opens eyes to voice, and was initially following commands, able to sqeeze hands bilaterally and then harder when asked to, able to pedal feet to command, was tracking somewhat; md was notified and in to bedside to assess, and patient found to be inconsistently following commands for MD, and plan to continue to monitor for greater consistency of following commands. patient did look uncomfortable at times today, was noted to be shifting head rapidly back and forth as if to pull ETT; continues in restraints; was medicated with PRN dilaudid 0.5 mg, after assessing neurological status in morning and again at 1600. Patient over course of day noted to not follow commands, but did seem to shake head no in response to questions at times. ETT 7.5# at 25 cm at the lip; Patient continues on ventilator on bilevel settings: AC 14; pressure control 26; pressure support of 24; Peep of 8; fio2 was 35%, titrated down wo 28 % at end of evening minute volumes around 7-8; tidal volumes around 360-560. Copious oral thin clear secretions/excessive drooling, suctioned with good effect; moderate thin inline secretions, clear-white. patient continues on IV IG, prepped this evening with solumedrol, benedryl, and tylenol. Patient also has had temp low this evenin.4, followup up with MD, and put blankets on patient and continuing to monitor. Patient continues on levophed: 0.02 mcg/kg/min, not to titrate off at this time per MD. Patient continues on glucerna at 60 cc/hour, h2o flushes of 240 q8 hours, and tolerated well; no BM this shift.
[2020-05-18 23:40] LABS: Glucose, Whole Blood 207 mg/dL (60-115)
[2020-05-19] VITALS (30 sets, daily range): BP systolic 95–132; BP diastolic 37–65; PULSE 47–75; RESP 14–18; TEMP 35.7–37; O2SAT 92–98; BMI 40.7
[2020-05-19] MEDS: Insulin Lispro 100 UNIT/ML 3 ML VIAL SUBCUT ×2 (05:34→17:52)
[2020-05-19 05:35] LABS: Glucose, Whole Blood 198 mg/dL (60-115)
[2020-05-19 07:02] LABS: Basophils Percent Auto 0.2 % (0-2); Hematocrit 24.5 % (42-52); Hemoglobin 7.5 g/dl (14.0-18.0); Imm Gran Abs Auto 0.04 X10*3/uL (0.00-0.03); Imm Gran Pct Auto 0.6 % (0.0-0.4); Lymphocytes Absolute Auto 0.3 X10*3/uL (1.2-4.9); Lymphocytes Percent Auto 5.3 % (20-40); MANUAL DIFF FLAG SCAN; Mean Corpuscular HGB Conc 30.6 g/dl (31.0-36.0); Mean Corpuscular Hemoglobin 28.8 pg (27.0-33.0); Mean Corpuscular Volume 94.2 fL (80-98); Mean Platelet Volume 10.2 fL (9.4-12.4); Monocytes Absolute Auto 0.3 X10*3/uL (0.1-1.2); Neutrophils Absolute Auto 5.5 X10*3/uL (2.0-8.3); Neutrophils Percent Auto 88.9 % (45-73); Platelet Count 454 X10*3/uL (160-400); Red Cell Distribution Width 15.1 % (11.0-16.0); SCAN SMEAR FLAG 1; White Blood Count 6.2 X10*3/uL (4.8-10.8)
[2020-05-19 07:31] LABS: Alanine Aminotransferase 38 U/L (0-40); Alkaline Phosphatase 76 U/L (39-117); Anion Gap 15 (12-20); Aspartate Amino Transferase 33 U/L (5-37); Bilirubin Total 0.4 mg/dL (0.0-1.0); Blood Urea Nitrogen 77 mg/dL (9-16); Calcium 8.1 mg/dL (8.4-10.2); Carbon Dioxide 24 mmol/L (22-29); Chloride 104 mmol/L (96-108); Creatinine Clr Calc Pharmacy 25.3; Estimated Glomerular Filt Rate 21; Glucose Random 195 mg/dL (60-115); Sodium 139 mmol/L (135-145); Total Protein 7.7 g/dL (6.5-8.0)
[2020-05-19 08:25] LABS: SLIDE REVIEW VERIFIED
[2020-05-19] MEDS: Heparin Sodium,Porcine 5,000 UNIT/ML VIAL 5000 UNIT SUBCUT ×2 (08:30→16:00)
[2020-05-19 09:59] LABS: Venous Blood Gas Refer to POC result
[2020-05-19 10:00] LABS: VBG Base Excess -0.3 mmol/L; VBG HCO3 25 mmol/L (22-26); VBG pCO2 44 mmHg; VBG pH 7.36 (7.32-7.43); VBG pO2 98 mmHg
[2020-05-19] MEDS: 0.9 % Sodium Chloride Flush 3 ML SYRINGE IVFLUSH ×2 (10:14→16:00)
[2020-05-19] MEDS: Betamethasone Dip Aug 0.05% Cr 15 GM TUBE 1 APPL TOPICAL ×2 (10:14→21:52)
[2020-05-19] MEDS: Chlorhexidine Gluc Oral Rinse 15 ML MOUTHWASH BUCCAL ×3 (10:14→21:53)
[2020-05-19] MEDS: Famotidine/PF 20 MG/2 ML VIAL IVPUSH (10:15)
[2020-05-19] MEDS: Nystatin Powder 15 GM BOTTLE 1 APPL TOPICAL ×3 (10:15→21:53)
[2020-05-19] MEDS: Levothyroxine Sodium 125 MCG TABLET PO (10:15)
[2020-05-19 11:42] LABS: Glucose, Whole Blood 126 mg/dL (60-115)
--- NOTE | 2020-05-19 16:50 | P.PNNP_ITS ---
Subjective Subjective Date of Service: 05/20/20 Interval history: Events noted Physical Exam Vital Signs: Vital Signs: Last Vital Signs Temp 97.2 F 05/19/20 16:00 Pulse 56 05/19/20 16:00 Resp 15 05/19/20 16:00 BP 132/65 05/19/20 16:00 Pulse Ox 96 05/19/20 16:00 Body Mass Index 40.7 Const: General: ill appearing Neck: Neck: Yes no JVD Resp: Auscultation: rhonchi Cardio: Palpation: no palpable S3 Heart sounds: no rubs Neuro: Motor exam (neuro): no asterixis Objective Data Labs CBC & Chem 7: 05/20/20 08:16 05/20/20 08:16 Labs: Laboratory Results - last 24 hr 05/18/20 05/18/20 05/19/20 18:54 23:36 05:31 WBC RBC Hgb Hct MCV MCH MCHC RDW Plt Count MPV Immature Gran % (Auto) Neut % (Auto) Lymph % (Auto) [place] % (Auto) Eos % (Auto) Baso % (Auto) Lymph # (Auto) [place] # (Auto) Eos # (Auto) Baso # (Auto) Abs Immat Gran (auto) Absolute Neuts (auto) Absolute Nucleated RBC Nucleated RBC % (auto) Smear Tech's Comments VBG pH VBG pCO2 VBG pO2 VBG HCO3 VBG O2 Saturation VBG Base Excess Sodium Potassium Chloride Carbon Dioxide Anion Gap BUN Creatinine Estim Creat Clear Calc Estimated GFR POC Glucose 131 H 207 H 198 H Random Glucose Calcium Total Bilirubin AST ALT Alkaline Phosphatase Total Protein Albumin 05/19/20 05/19/20 05/19/20 06:53 06:53 06:55 WBC 6.2 RBC 2.60 L Hgb 7.5 L Hct 24.5 L MCV 94.2 MCH 28.8 MCHC 30.6 L RDW 15.1 Plt Count 454 H MPV 10.2 Immature Gran % (Auto) 0.6 H Neut % (Auto) 88.9 H Lymph % (Auto) 5.3 L [place] % (Auto) 5.0 Eos % (Auto) 0.0 Baso % (Auto) 0.2 Lymph # (Auto) 0.3 L [place] # (Auto) 0.3 Eos # (Auto) 0.0 Baso # (Auto) 0.0 Abs Immat Gran (auto) 0.04 H Absolute Neuts (auto) 5.5 Absolute Nucleated RBC 0.000 Nucleated RBC % (auto) 0.0 Smear Tech's Comments VERIFIED VBG pH 7.36 VBG pCO2 44 VBG pO2 98 VBG HCO3 25 VBG O2 Saturation 95.0 VBG Base Excess -0.3 Sodium 139 Potassium 4.0 Chloride 104 Carbon Dioxide 24 Anion Gap 15 BUN 77 H Creatinine 2.90 H Estim Creat Clear Calc 25.3 Estimated GFR 21 POC Glucose Random Glucose 195 H Calcium 8.1 L Total Bilirubin 0.4 AST 33 ALT 38 Alkaline Phosphatase 76 Total Protein 7.7 Albumin 3.0 L 05/19/20 11:39 WBC RBC Hgb Hct MCV MCH MCHC RDW Plt Count MPV Immature Gran % (Auto) Neut % (Auto) Lymph % (Auto) [place] % (Auto) Eos % (Auto) Baso % (Auto) Lymph # (Auto) [place] # (Auto) Eos # (Auto) Baso # (Auto) Abs Immat Gran (auto) Absolute Neuts (auto) Absolute Nucleated RBC Nucleated RBC % (auto) Smear Tech's Comments VBG pH VBG pCO2 VBG pO2 VBG HCO3 VBG O2 Saturation VBG Base Excess Sodium Potassium Chloride Carbon Dioxide Anion Gap BUN Creatinine Estim Creat Clear Calc Estimated GFR POC Glucose 126 H Random Glucose Calcium Total Bilirubin AST ALT Alkaline Phosphatase Total Protein Albumin Microbiology Microbiology Results: Microbiology 05/16/20 12:30 Cerebrospinal Fluid Gram Stain - Final 05/16/20 12:30 Cerebrospinal Fluid CSF Examination - Final 05/16/20 12:30 Cerebrospinal Fluid Fluid Description - Final 05/16/20 12:30 Cerebrospinal Fluid CSF Culture - Final No growth after 3 days. 05/06/20 14:27 Blood - Venous Blood Culture - Final No growth after 5 days. 05/06/20 14:24 Blood - Venous Blood Culture - Final No growth after 5 days. Assessment & Plan Assessment and plan (1) Acute renal failure: Problem details: 74 year old man with history of CHF and hypothyroidism admitted with acute encephalopathy related to dehydration and cellulitis and noted renal dysfunc and hyperNa Now decomp resp status req inutbation 1. Non-Oliguric JETT: SCr remains stable at 3.0 range; sepsis assoc ATN and a risk prog to point of possibly needing HD in next 24-48 hrs 2. CKD 3b: bsl SCr 2.0; etiol unlcear but its been longstanding; UA unremarkable; suspecty age related vs HTN nephrosclerosis 3.. HyperNa: resolved 4.. cellulitis 5, Rsp failure: on vent 6. Sepsis 7. Neuro: w/u as noted and now on IVGG 8. TBFOL: vol status looks ok w chronic venosu stasis REC: No indication for dialysis yet but will cont to track closely; cont to track UOP and renal func; avoid NToxins; optimize hemodyanamics/resp as per ICU team; cont diuretic as need prn will follow with team Status: Acute Time Spent With Patient Time: Total time spent is greater than 50% in coordination of care (as documented) at patient's floor/unit and/or counseling patient:
[2020-05-19 17:01] LABS: VDRL Qualitative CSF Nonreactive (Nonreactive)
[2020-05-19] MEDS: methylPREDNISolone Sod Succ 40 MG/ML VIAL IVPUSH (17:08)
[2020-05-19] MEDS: Acetaminophen 325 MG TABLET 650 MG PO (17:08)
[2020-05-19] MEDS: diphenhydrAMINE HCL 50 MG/ML VIAL 25 MG IV (17:09)
[2020-05-19 17:48] LABS: Glucose, Whole Blood 170 mg/dL (60-115)
[2020-05-19] MEDS: HYDROmorphone HCl 0.5 MG/0.5 ML SYRINGE IVPUSH (17:51)
--- NOTE | 2020-05-19 19:15 | PM.CCPN ---
Subjective Subjective Date of Service: 05/19/20 Interval History: Mr. Lozano was admitted to ICU on May 11 [facility] of acute hypercarbic resp failure, likely 2? aspiration. The patient is a 74 yo male with PMHx of DM, HTN, long time smoker, CHF, CKD (39/2.1 in 2018), and Hypothyroidism. He has chronic wounds on his legs for unclear reasons. According to the patient?s , he was managing his wounds by himself at home. On May 06, the patient?s called EMS bec of altered MS. According to EMS and the patient, he was sent to the emergency room by request of the patient's 's bec she believed that he?d been altered for the previous 5-10 days. In the ED, the patient was oriented X 3 and neurologically intact according to the ED physician, but the hospitalist thought he was confused. He denied any complaints. He was hypothermic to 92.6? however. Both of his lower legs had venous stasis changes and looked cellulitic. WBC was normal. Na was 149, BUN/creat were 50/2.2. CXR and head CT showed NAD. He was treated with fluids and antibiotics. He was admitted to medicine and given Zosyn and doxycycline. He remained largely obtunded, thought 2? metabolic encephalopathy. No blood gasses were done. Blood cultures were negative. Antibiotics were changed to clindamycin at the suggestion of ID. THE PATIENT AND FAMILY HAD DECIDED ON DNR STATUS, BUT OK?D SHORT TERM INTUBATION IF NECESSARY. Overnight on May 10, the patient became hypoxemic. That morning May 11, chest x-ray for the 1st time showed significant bibasilar ill-defined infiltrates. Later that morning, an ABG showed severe hypercarbia. The patient was therefore intubated and tx to ICU, where he subsequently required bronchoscopy for refractory hypoxemia with heavy tracheal secretion burden that was unable to be cleared out by in-line suction. The patient was extubated on 05/12/2020, however required re-intubation the same day secondary to recurrent pulmonary aspiration resulting in hypoxic and hypercapnic respiratory failure. ECHO on May 12 showed: - Normal left ventricular size and systolic function, w moderately increased left ventricular wall thickness. EF 60-65%. - Elevated filling pressures. - Mildly increased RV cavity size, w normal RV systolic function. - IVC is dilated w <50% inspiratory collapse. The patient underwent brain MRI on May 11, which was read by the neuroradiologist as showing various nonspecific signal changes of unclear significance. An MRI with contrast was recommended. Also noted was a severe disc protrusion at C4-C5 w mass effect on the cervical spinal cord and severe central canal stenosis. A cervical spine MRI was rec. The propofol was turned off on May 14 in the morning, and he hasn?t yet become interactive. Best neuro response has been partial eye opening to stimulation, but nothing purposeful. No response to commands or confrontation. EEG done on 05/14 showed ?moderately abnormal EEG due to diffuse background slowing consistent with a diffuse encephalopathic process. No epileptiform discharges seen.? We repeated the MRI with contrast on 05/15 and did the c-spine MR. By report, there is no abnormal mass or enhancement in the brain. The c-spine shows severe canal stenosis with compression of the cervical spinal cord at C4-C5 and C5-C6 w AP narrowing of the canal at the level of C1, and severe bilateral neuroforaminal encroachment at C4-C5 and C5-C6. I spoke w the patient?s and she said he?s had leg weakness and has been using a walker for some years. He also has bilat upp extrem weakness, hard to raise his arms above his shoulders. Diagnostic LP on 05/16 showed all labs normal except for a very high protein level. 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 Since then, mental status has definitely improved but only slightly. He opens his eyes wider, he occasionally responds to confrontation, he?s more active in the bed, and he seems to maybe occasionally, but rarely, respond with a nod of the head. Moving all four extrems spontaneously. All sedatives still off, just treating him with ? mg Dilaudid when he looks uncomfortable. nylon hot wire cutter seem intact, no gross neuro focality. PERRL about 5mm. See Vital Signs below. He?s on Levophed 0.02ug. HR 40-60?s, SR. BP 110/50. Afebrile. On BiLevel 14, pressures 26/8, PSV 24, 28%, RR is 16, Vt is 550cc, Ve is 7L, ETCO2 35, Sat 95%. CVBG this morning showed 7.36/44/+0. No JVD at 30?. Chest is CTA, with normal exp phase. Abdomen has good BS, benign. Minimal edema. Mult sores and abrasions on his arms and legs. Both lower legs still erythematous, improved somewhat from admission as far as I can tell from looking at his admission photos. Does not look to me like he currently has cellulitis. CURRENT MEDICATIONS include: Betamethasone topical Pepcid 20 mg daily Heparin 5000 units Q8h IVIG Solumedrol (for the IVIG) Insulin SQ sliding scale Levothyroxine LABORATORY DATA: As below. BUN/creat steady 77/2.9 (BUN up maybe 2? steroids). IMPRESSION: 1. Underlying obesity, congestive heart failure, COPD 2. Obtundation. Etiology still undiscovered. 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 But his symptom history is not really consistent with GBS. If the cause is metabolic, the most likely (the only) culprit would be the propofol, but we?ve pretty much run out of time on that. Given that there is some improvement in his neuro status since we started the IVIG, we?ll continue the 5-day course. 3. Acute on chronic congestive heart failure, with right heart failure, by 2D echo. 4. Acute hypercapnic respiratory failure. Serum bicarb levels were normal on admission, which is inconsistent with chronic CO2 retention. A venous blood gas done 05/10 showed normal pCO2. What accounted for his sudden hypercarbia the next morning, 05/11, is not certain, (he did not get any opiates), but was most likely 2? aspiration, as shown by the CXR. 5. ID: Pulmonary aspiration with resultant aspiration pneumonia. Finished an empiric 7-day course of Unasyn. Does not look like he has lower extremity cellulitis at this time. More likely has chronic venous stasis dermatitis changes. 6. Acute renal failure. Undoubtedly has cardiorenal syndrome. When acute resp failure occurs in patients with RHF and acute renal failure, the mortality rate is very high. RHF will limit the amount he can be diuresed. Stopped the diuresis on 05/14 and his indices seem to have plateaued. He?s got no JVD, minimal edema. I think he?s as dry as he can get. 7. Hypernatremia. Resolved with D5W infusion. 8. DM. Continue insulin SQ sliding scale. 9. Underlying history of hypothyroidism. On Levothyroid. 10. Cervical myelopathy. I spoke with Dr. Manning from neurosurgery at [facility]. Read him the MRI report. In his opinion, the patient would need surgery, but would not be a candidate until his encephalopathy is resolved. Does not need a collar at this time. If needed to be intubated, use in-line stabilization with Glidescope. 11. Nutrition. On tube feeds. 12. Met alkalosis. Treated w Diamox. Critical care time: 50 min Physical Exam Vital Signs: Vital Signs: Last Vital Signs Temp 96.3 F L 05/19/20 19:00 Pulse 51 05/19/20 19:00 Resp 14 05/19/20 19:00 BP 95/50 L 05/19/20 19:00 Pulse Ox 98 05/19/20 19:00 Body Mass Index 40.7 Objective Data Labs CBC & Chem 7: 05/19/20 06:53 05/19/20 06:53 Labs: Laboratory Results - last 24 hr 05/16/20 05/18/20 05/19/20 12:30 23:36 05:31 WBC RBC Hgb Hct MCV MCH MCHC RDW Plt Count MPV Immature Gran % (Auto) Neut % (Auto) Lymph % (Auto) [place] % (Auto) Eos % (Auto) Baso % (Auto) Lymph # (Auto) [place] # (Auto) Eos # (Auto) Baso # (Auto) Abs Immat Gran (auto) Absolute Neuts (auto) Absolute Nucleated RBC Nucleated RBC % (auto) Smear Tech's Comments VBG pH VBG pCO2 VBG pO2 VBG HCO3 VBG O2 Saturation VBG Base Excess Sodium Potassium Chloride Carbon Dioxide Anion Gap BUN Creatinine Estim Creat Clear Calc Estimated GFR POC Glucose 207 H 198 H Random Glucose Calcium Total Bilirubin AST ALT Alkaline Phosphatase Total Protein Albumin CSF VDRL Nonreactive 05/19/20 05/19/20 05/19/20 06:53 06:53 06:55 WBC 6.2 RBC 2.60 L Hgb 7.5 L Hct 24.5 L MCV 94.2 MCH 28.8 MCHC 30.6 L RDW 15.1 Plt Count 454 H MPV 10.2 Immature Gran % (Auto) 0.6 H Neut % (Auto) 88.9 H Lymph % (Auto) 5.3 L [place] % (Auto) 5.0 Eos % (Auto) 0.0 Baso % (Auto) 0.2 Lymph # (Auto) 0.3 L [place] # (Auto) 0.3 Eos # (Auto) 0.0 Baso # (Auto) 0.0 Abs Immat Gran (auto) 0.04 H Absolute Neuts (auto) 5.5 Absolute Nucleated RBC 0.000 Nucleated RBC % (auto) 0.0 Smear Tech's Comments VERIFIED VBG pH 7.36 VBG pCO2 44 VBG pO2 98 VBG HCO3 25 VBG O2 Saturation 95.0 VBG Base Excess -0.3 Sodium 139 Potassium 4.0 Chloride 104 Carbon Dioxide 24 Anion Gap 15 BUN 77 H Creatinine 2.90 H Estim Creat Clear Calc 25.3 Estimated GFR 21 POC Glucose Random Glucose 195 H Calcium 8.1 L Total Bilirubin 0.4 AST 33 ALT 38 Alkaline Phosphatase 76 Total Protein 7.7 Albumin 3.0 L CSF VDRL 05/19/20 05/19/20 11:39 17:44 WBC RBC Hgb Hct MCV MCH MCHC RDW Plt Count MPV Immature Gran % (Auto) Neut % (Auto) Lymph % (Auto) [place] % (Auto) Eos % (Auto) Baso % (Auto) Lymph # (Auto) [place] # (Auto) Eos # (Auto) Baso # (Auto) Abs Immat Gran (auto) Absolute Neuts (auto) Absolute Nucleated RBC Nucleated RBC % (auto) Smear Tech's Comments VBG pH VBG pCO2 VBG pO2 VBG HCO3 VBG O2 Saturation VBG Base Excess Sodium Potassium Chloride Carbon Dioxide Anion Gap BUN Creatinine Estim Creat Clear Calc Estimated GFR POC Glucose 126 H 170 H Random Glucose Calcium Total Bilirubin AST ALT Alkaline Phosphatase Total Protein Albumin CSF VDRL Microbiology Microbiology Results: Microbiology 05/16/20 12:30 Cerebrospinal Fluid Gram Stain - Final 05/16/20 12:30 Cerebrospinal Fluid CSF Examination - Final 05/16/20 12:30 Cerebrospinal Fluid Fluid Description - Final 05/16/20 12:30 Cerebrospinal Fluid CSF Culture - Final No growth after 3 days. 05/06/20 14:27 Blood - Venous Blood Culture - Final No growth after 5 days. 05/06/20 14:24 Blood - Venous Blood Culture - Final No growth after 5 days. Progress Note: A&P Time Spent With Patient Time: Total time spent is greater than 50% in coordination of care (as documented) at patient's floor/unit and/or counseling patient: Total time spent with greater than 50% in coordination of care (as documented) at patient's floor/unit and/or counseling patient:: 0 Critical Care Time Critical Care Time (minutes): 60
--- NOTE | 2020-05-19 19:51 | PC.NURSE ---
ASSUMED CARE AT 0700. PATIENT WITH NO SEDATION, WAS DROWSY AND LETHARGIC ON VENT, ABLE TO LIFT RIGHT THUMB TO COMMAND TODAY AND TO PEDAL BILAT FEET ONCE TODAY TO COMMAND. OTHERWISE HAD DIFFICULTY FOLLOWING COMMANDS; DISCUSSED WITH MD AND NO MRI CURRENTLY, BUT WILL CONSIDER. PATIENT AFEBRILE. CONTINUES TO GET IV IGG AND WELL TOLERATED. PATIENT WITH BILEVEL SETTINGS 26/8; PS 24; FIO2 28%; SPO2 LARGELY WNL; MINUTE VOLUMES AROUND 8; TIDAL VOLUMES AROUND 450-500. #7.5 ETT 26 CM KRISTIN. SECRETIONS LARGE AMOUNT OF CLEAR; SEEMS TO HAVE BIT LEFT SIDE OF TONGUE, MINIMAL BLOODY SECRETIONS. LUNG SOUNDS WERE DIM AT BILATERAL BASES; DEVELOPED FINE CRACKLES THROUGHOUT. URINE OUTPUTS 100-200 PER HOUR. NO BM TODAY, BUT POSITIVE FLATUS. HYPERACTIVE BOWEL SOUNDS. BP WAS WITHIN NORMAL LIMITS, LEVO WAS AT 0.02, TITRATED TO OFF, NOT TOLERATED WELL, RESTARTED AT SHIFT CHANGE. PATIENT WITH PURULENT DRAINAGE FROM COCCYGEAL/SACRAL WOUNDS, WOUND CONSULT ORDERED, MD AWARE.
[2020-05-19 23:31] LABS: Glucose, Whole Blood 228 mg/dL (60-115)
[2020-05-20] VITALS (30 sets, daily range): BP systolic 93–146; BP diastolic 36–90; PULSE 55–82; RESP 10–23; TEMP 36.3–37.2; O2SAT 90–97; BMI 39.4
[2020-05-20] MEDS: Insulin Lispro 100 UNIT/ML 3 ML VIAL SUBCUT ×5 (00:55→23:44)
[2020-05-20] MEDS: Heparin Sodium,Porcine 5,000 UNIT/ML VIAL 5000 UNIT SUBCUT ×4 (00:56→23:45)
[2020-05-20] MEDS: 0.9 % Sodium Chloride Flush 3 ML SYRINGE IVFLUSH ×4 (00:56→23:43)
[2020-05-20 06:01] LABS: Glucose, Whole Blood 198 mg/dL (60-115)
[2020-05-20 08:22] LABS: Venous Blood Gas Refer to POC result
[2020-05-20 08:24] LABS: Basophils Percent Auto 0.2 % (0-2); Hematocrit 25.5 % (42-52); Hemoglobin 7.9 g/dl (14.0-18.0); Imm Gran Abs Auto 0.04 X10*3/uL (0.00-0.03); Imm Gran Pct Auto 0.6 % (0.0-0.4); Lymphocytes Absolute Auto 0.4 X10*3/uL (1.2-4.9); Lymphocytes Percent Auto 5.7 % (20-40); MANUAL DIFF FLAG SCAN; Mean Corpuscular Volume 93.8 fL (80-98); Mean Platelet Volume 9.9 fL (9.4-12.4); Monocytes Absolute Auto 0.5 X10*3/uL (0.1-1.2); Monocytes Percent Auto 7.1 % (2-11); Neutrophils Absolute Auto 5.5 X10*3/uL (2.0-8.3); Neutrophils Percent Auto 86.4 % (45-73); Platelet Count 449 X10*3/uL (160-400); Red Cell Distribution Width 15.1 % (11.0-16.0); SCAN SMEAR FLAG 1; White Blood Count 6.3 X10*3/uL (4.8-10.8)
[2020-05-20 08:24] LABS: VBG HCO3 24 mmol/L (22-26); VBG pCO2 39 mmHg; VBG pH 7.39 (7.32-7.43); VBG pO2 107 mmHg
[2020-05-20 08:28] LABS: Red Blood Count 2.72 X10*6/uL (4.60-5.80)
[2020-05-20 08:45] LABS: SLIDE REVIEW VERIFIED
[2020-05-20 09:02] LABS: Alanine Aminotransferase 43 U/L (0-40); Alkaline Phosphatase 77 U/L (39-117); Anion Gap 14 (12-20); Aspartate Amino Transferase 33 U/L (5-37); Bilirubin Total < 0.2 mg/dL (0.0-1.0); Blood Urea Nitrogen 80 mg/dL (9-16); Calcium 8.1 mg/dL (8.4-10.2); Carbon Dioxide 23 mmol/L (22-29); Chloride 108 mmol/L (96-108); Creatinine Clr Calc Pharmacy 26.1; Estimated Glomerular Filt Rate 23; Glucose Random 199 mg/dL (60-115); Potassium 4.2 mmol/L (3.3-5.1); Sodium 141 mmol/L (135-145)
[2020-05-20] MEDS: Chlorhexidine Gluc Oral Rinse 15 ML MOUTHWASH BUCCAL ×3 (09:43→20:52)
[2020-05-20] MEDS: Famotidine/PF 20 MG/2 ML VIAL IVPUSH (09:43)
[2020-05-20] MEDS: Nystatin Powder 15 GM BOTTLE 1 APPL TOPICAL ×3 (09:43→20:52)
[2020-05-20] MEDS: Levothyroxine Sodium 125 MCG TABLET PO (09:43)
[2020-05-20] MEDS: Betamethasone Dip Aug 0.05% Cr 15 GM TUBE 1 APPL TOPICAL ×2 (09:43→20:52)
--- NOTE | 2020-05-20 10:40 | P.CNNE_ITS ---
History of Present Illness Data of Consult Service Date: 05/20/20 Primary Care Provider: Unknown Physician 74 years old man with complicated clinical picture presenting with generalized weakness and also change in mental status suggestive of encephalopathy. He did have some electrolyte abnormalities but then also abnormal spinal fluid and quite abnormal cervical spine. His cervical spine revealed chronic severe spondylitic stenosis and myelopathy. 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 Because of his significant leg his obesity and cellulitis electrophysiological studies could not be done. [facility] Past Medical History Medical History CHF (congestive heart failure) Diabetes HTN (hypertension) Hypothyroidism Functional capacity: uses cane/walker Family History Family history: reviewed and not pertinent Social History Social History Household Members: Spouse Housing: House Alcohol intake: unknown Smoking Status: Unknown if ever smoked service: No Current occupational status: retired Meds Allergies Allergy/AdvReac Type Severity Reaction Status Date / Time No Known Allergies Allergy Unknown NONE Unverified 11/17/19 14:44 Active Medications: Current Medications Generic Name Dose Route Start Last Admin Trade Name Freq PRN Reason Stop Dose Admin Acetaminophen 650 mg 05/17/20 17:30 05/19/20 17:08 Acetaminophen 325 Mg Tablet PO 05/20/20 17:31 650 mg DAILY@1730 [facility] Administration Betamethasone Dipropion Augmented 1 appl 05/07/20 21:00 05/20/20 09:43 Betamethasone Dip Aug 0.05% Cr 15 Gm Tube TOPICAL 1 appl BID COSME Administration Protocol Chlorhexidine Gluconate 15 ml 05/11/20 15:00 05/20/20 09:43 Chlorhexidine Gluc Oral Rinse 15 Ml Mouthwash BUCCAL 15 ml TID COSME Administration Diphenhydramine HCl 25 mg 05/17/20 17:30 05/19/20 17:09 Diphenhydramine Hcl 50 Mg/Ml Vial IV 05/20/20 17:31 25 mg DAILY@1730 [facility] Administration Famotidine 20 mg 05/12/20 09:00 05/20/20 09:43 Famotidine/Pf 20 Mg/2 Ml Vial IVPUSH 20 mg DAILY [facility] Administration Heparin Sodium (Porcine) 5,000 unit 05/14/20 23:30 05/20/20 09:26 Heparin Sodium,Porcine 5,000 Unit/Ml Vial SUBCUT 5,000 unit Q8H [facility]ME Administration Norepinephrine Bitartrate 8 mg in 250 mls @ 0 mls/hr 05/11/20 11:15 05/19/20 19:30 Levophed IVCONT 0.02 mcg/kg/min .Q0M COSME 4.11 mls/hr Administration Protocol Per Protocol Immune Globulin 10 gm in 100 mls @ 50 mls/hr 05/16/20 18:00 05/19/20 19:24 Flebogamma 10% IV 05/20/20 19:59 Infused DAILY@1800 [facility] Infusion Immune Globulin 20 gm in 200 mls @ 50 mls/hr 05/16/20 20:00 05/19/20 23:32 Flebogamma 10% IV 05/20/20 23:59 Infused DAILY@2000 [facility] Infusion Insulin Human Lispro 0 unit 05/14/20 18:00 05/20/20 06:03 Insulin Lispro 100 Unit/Ml 3 Ml Vial SUBCUT 2 unit 0000,0600,1200,1800 [facility] Administration Protocol Levothyroxine Sodium 125 mcg 05/07/20 09:00 05/20/20 09:43 Levothyroxine Sodium 125 Mcg Tablet PO 125 mcg DAILY [facility] Administration Methylprednisolone Sodium Succinate 40 mg 05/17/20 17:30 05/19/20 17:08 Methylprednisolone Sod Succ 40 Mg/Ml Vial IVPUSH 05/20/20 17:31 40 mg DAILY@1730 [facility] Administration Nystatin 1 appl 05/07/20 09:00 05/20/20 09:43 Nystatin Powder 15 Gm Bottle TOPICAL 1 appl TID [facility] Administration Protocol Sodium Chloride 3 ml 05/07/20 00:00 05/20/20 09:40 0.9 % Sodium Chloride Flush 3 Ml Syringe IVFLUSH 3 ml QSHIFT [facility] Administration Home Medications Medication Instructions Recorded Confirmed Last Taken Type furosemide 1 tab PO TID 05/06/20 05/06/20 Unknown History levothyroxine 1 tab PO DAILY 05/06/20 05/06/20 Unknown History metoprolol tartrate 1 tab PO DAILY 05/06/20 05/06/20 Unknown History spironolactone 1 tab PO BID 05/06/20 05/06/20 Unknown History tamsulosin 1 cap PO DAILY 05/06/20 05/06/20 Unknown History Physical Exam Vital Signs: Vital Signs: Last Vital Signs Temp 98.8 F 05/20/20 10:00 Pulse 70 05/20/20 10:00 Resp 23 H 05/20/20 10:00 BP 130/64 05/20/20 10:00 Pulse Ox 91 L 05/20/20 10:00 Body Mass Index 39.4 He was intubated and not getting regular sedation but he was getting some Benadryl and Dilaudid now and then. He did not respond to verbal stimuli but was responsive to painful stimuli. He was resisting eye opening. There was no abnormal posturing. Deep tendon reflexes were absent. He was withdrawing extremities with pain. Results Labs CBC & Chem 7: 05/20/20 08:16 05/20/20 08:16 Labs: Short CBC 05/06/20 05/06/20 05/07/20 Range/Units 14:24 16:47 04:08 WBC (4.8-10.8) X10*3/uL Hgb (14.0-18.0) g/dl Hct (42-52) % Plt Count (160-400) X10*3/uL Creatinine 2.20 H 1.99 H 2.03 H (0.5-1.4) mg/dL 05/07/20 05/08/20 05/08/20 Range/Units 15:04 05:44 14:09 WBC (4.8-10.8) X10*3/uL Hgb (14.0-18.0) g/dl Hct (42-52) % Plt Count (160-400) X10*3/uL Creatinine 2.19 H 2.16 H 2.10 H (0.5-1.4) mg/dL 05/09/20 05/10/20 05/11/20 Range/Units 05:38 05:34 05:31 WBC (4.8-10.8) X10*3/uL Hgb (14.0-18.0) g/dl Hct (42-52) % Plt Count (160-400) X10*3/uL Creatinine 1.97 H 2.10 H 2.62 H (0.5-1.4) mg/dL 05/11/20 05/12/20 05/13/20 Range/Units 12:42 04:59 05:35 WBC (4.8-10.8) X10*3/uL Hgb (14.0-18.0) g/dl Hct (42-52) % Plt Count (160-400) X10*3/uL Creatinine 3.11 H 3.34 H 3.30 H (0.5-1.4) mg/dL 05/14/20 05/15/20 05/16/20 Range/Units 05:20 05:22 06:12 WBC (4.8-10.8) X10*3/uL Hgb (14.0-18.0) g/dl Hct (42-52) % Plt Count (160-400) X10*3/uL Creatinine 3.22 H 3.14 H 2.94 H (0.5-1.4) mg/dL 05/18/20 05/19/20 05/20/20 Range/Units 06:00 06:53 08:16 WBC 6.3 (4.8-10.8) X10*3/uL Hgb 7.9 L (14.0-18.0) g/dl Hct 25.5 L (42-52) % Plt Count 449 H (160-400) X10*3/uL Creatinine 3.04 H 2.90 H (0.5-1.4) mg/dL 05/20/20 Range/Units 08:16 WBC (4.8-10.8) X10*3/uL Hgb (14.0-18.0) g/dl Hct (42-52) % Plt Count (160-400) X10*3/uL Creatinine 2.76 H (0.5-1.4) mg/dL BMP 05/20/20 08:16 Sodium 141 Potassium 4.2 Chloride 108 Carbon Dioxide 23 BUN 80 H* Creatinine 2.76 H Calcium 8.1 L Liver Function 05/20/20 Range/Units 08:16 Total Bilirubin < 0.2 (0.0-1.0) mg/dL AST 33 (5-37) U/L ALT 43 H (0-40) U/L Alkaline Phosphatase 77 (39-117) U/L Albumin 3.0 L (3.5-5.0) g/dL Microbiology Microbiology Results: Microbiology 05/16/20 12:30 Cerebrospinal Fluid Gram Stain - Final 05/16/20 12:30 Cerebrospinal Fluid CSF Examination - Final 05/16/20 12:30 Cerebrospinal Fluid Fluid Description - Final 05/16/20 12:30 Cerebrospinal Fluid CSF Culture - Final No growth after 3 days. 05/06/20 14:27 Blood - Venous Blood Culture - Final No growth after 5 days. 05/06/20 14:24 Blood - Venous Blood Culture - Final No growth after 5 days. Assessment and Plan (1) Guillain-Racine syndrome: Status: Acute His overall presentation was somewhat atypical but the difficulty was to not able to obtain electrophysiological study. With generalized weakness and quite high CSF protein he was being treated with IVIG. Response to IV IG could leg for few days. To make things complicated, he had significant cervical spondylitic myelopathy that could also result in significant weakness of paraparesis or paraplegia. Mental status changes were likely due to metabolic reasons. I would recommend continuing and finishing IVIG course and then try to extubate him, if possible
--- NOTE | 2020-05-20 11:18 | PM.PNNEP ---
Subjective Subjective Date of Service: 05/20/20 Interval history: Events noted On Vent Non oliguric Physical Exam Vital Signs: Vital Signs: Last Vital Signs Temp 98.8 F 05/20/20 10:00 Pulse 70 05/20/20 10:00 Resp 23 H 05/20/20 10:00 BP 130/64 05/20/20 10:00 Pulse Ox 91 L 05/20/20 10:00 Body Mass Index 39.4 Const: General: ill appearing Neck: Neck: Yes no JVD Resp: Auscultation: rhonchi Cardio: Palpation: no palpable S3 Heart sounds: no rubs Neuro: Motor exam (neuro): no asterixis Objective Data Labs CBC & Chem 7: 05/20/20 08:16 05/20/20 08:16 Labs: Laboratory Results - last 24 hr 05/16/20 05/19/20 05/19/20 12:30 11:39 17:44 WBC RBC Hgb Hct MCV MCH MCHC RDW Plt Count MPV Immature Gran % (Auto) Neut % (Auto) Lymph % (Auto) [place] % (Auto) Eos % (Auto) Baso % (Auto) Lymph # (Auto) [place] # (Auto) Eos # (Auto) Baso # (Auto) Abs Immat Gran (auto) Absolute Neuts (auto) Absolute Nucleated RBC Nucleated RBC % (auto) Smear Tech's Comments VBG pH VBG pCO2 VBG pO2 VBG HCO3 VBG O2 Saturation VBG Base Excess Sodium Potassium Chloride Carbon Dioxide Anion Gap BUN Creatinine Estim Creat Clear Calc Estimated GFR POC Glucose 126 H 170 H Random Glucose Calcium Total Bilirubin AST ALT Alkaline Phosphatase Total Protein Albumin CSF VDRL Nonreactive 05/19/20 05/20/20 05/20/20 23:27 05:58 08:16 WBC 6.3 RBC 2.72 L Hgb 7.9 L Hct 25.5 L MCV 93.8 MCH 29.0 MCHC 31.0 RDW 15.1 Plt Count 449 H MPV 9.9 Immature Gran % (Auto) 0.6 H Neut % (Auto) 86.4 H Lymph % (Auto) 5.7 L [place] % (Auto) 7.1 Eos % (Auto) 0.0 Baso % (Auto) 0.2 Lymph # (Auto) 0.4 L [place] # (Auto) 0.5 Eos # (Auto) 0.0 Baso # (Auto) 0.0 Abs Immat Gran (auto) 0.04 H Absolute Neuts (auto) 5.5 Absolute Nucleated RBC 0.000 Nucleated RBC % (auto) 0.0 Smear Tech's Comments VERIFIED VBG pH VBG pCO2 VBG pO2 VBG HCO3 VBG O2 Saturation VBG Base Excess Sodium Potassium Chloride Carbon Dioxide Anion Gap BUN Creatinine Estim Creat Clear Calc Estimated GFR POC Glucose 228 H 198 H Random Glucose Calcium Total Bilirubin AST ALT Alkaline Phosphatase Total Protein Albumin CSF VDRL 05/20/20 05/20/20 08:16 08:18 WBC RBC Hgb Hct MCV MCH MCHC RDW Plt Count MPV Immature Gran % (Auto) Neut % (Auto) Lymph % (Auto) [place] % (Auto) Eos % (Auto) Baso % (Auto) Lymph # (Auto) [place] # (Auto) Eos # (Auto) Baso # (Auto) Abs Immat Gran (auto) Absolute Neuts (auto) Absolute Nucleated RBC Nucleated RBC % (auto) Smear Tech's Comments VBG pH 7.39 VBG pCO2 39 VBG pO2 107 VBG HCO3 24 VBG O2 Saturation 95.0 VBG Base Excess 0.0 Sodium 141 Potassium 4.2 Chloride 108 Carbon Dioxide 23 Anion Gap 14 BUN 80 H* Creatinine 2.76 H Estim Creat Clear Calc 26.1 Estimated GFR 23 POC Glucose Random Glucose 199 H Calcium 8.1 L Total Bilirubin < 0.2 AST 33 ALT 43 H Alkaline Phosphatase 77 Total Protein 8.0 Albumin 3.0 L CSF VDRL Microbiology Microbiology Results: Microbiology 05/16/20 12:30 Cerebrospinal Fluid Gram Stain - Final 05/16/20 12:30 Cerebrospinal Fluid CSF Examination - Final 05/16/20 12:30 Cerebrospinal Fluid Fluid Description - Final 05/16/20 12:30 Cerebrospinal Fluid CSF Culture - Final No growth after 3 days. 05/06/20 14:27 Blood - Venous Blood Culture - Final No growth after 5 days. 05/06/20 14:24 Blood - Venous Blood Culture - Final No growth after 5 days. Assessment & Plan Assessment and plan (1) Acute renal failure: Problem details: 74 year old man with history of CHF and hypothyroidism admitted with acute encephalopathy related to dehydration and cellulitis and noted renal dysfunc and hyperNa Now decomp resp status req intubation 1. Non-Oliguric JETT: SCr remains stable at 3.0 range; sepsis assoc ATN 2. CKD 3b: bsl SCr 2.0; etiol unclear but its been longstanding; UA unremarkable; suspecty age related vs HTN nephrosclerosis 3.. HyperNa: resolved 4.. cellulitis 5, Rsp failure: on vent 6. Sepsis 7. Neuro: w/u as noted and now on IVGG 8. TBFOL: vol status looks ok w chronic venous stasis Disproportionate increase in BUN due to steroids REC: No indication for dialysis yet but will cont to track closely; cont to track UOP and renal func; avoid NToxins; optimize hemodyanamics/resp as per ICU team; cont diuretic as need prn will follow with team Status: Acute Time Spent With Patient Time: Total time spent is greater than 50% in coordination of care (as documented) at patient's floor/unit and/or counseling patient:
[2020-05-20 11:54] LABS: Glucose, Whole Blood 163 mg/dL (60-115)
--- NOTE | 2020-05-20 15:41 | P.PNCC_ITS ---
Subjective Subjective Date of Service: 05/20/20 Interval History: Mr. Lozano was admitted to ICU on May 11 [facility] of acute hypercarbic resp failure, likely 2? aspiration. The patient is a 74 yo male with PMHx of DM, HTN, long time smoker, CHF, CKD (39/2.1 in 2018), and Hypothyroidism. He has chronic wounds on his legs for unclear reasons. According to the patient?s , he was managing his wounds by himself at home. On May 06, the patient?s called EMS bec of altered MS. According to EMS and the patient, he was sent to the emergency room by request of the patient's 's bec she believed that he?d been altered for the previous 5-10 days. In the ED, the patient was reportedly oriented X 3 and neurologically intact, according to the ED physician, but the hospitalist thought he was confused. He reportedly denied any complaints. He was hypothermic to 92.6? however. Both of his lower legs had venous stasis changes and looked cellulitic. WBC was normal. Na was 149, BUN/creat were 50/2.2. CXR and head CT showed NAD. He was treated with fluids and antibiotics. He was admitted to medicine and given Zosyn and doxycycline. He reportedly remained largely obtunded, thought 2? metabolic encephalopathy. No blood gasses were done. Blood cultures were negative. Antibiotics were changed to clindamycin at the suggestion of ID. THE PATIENT AND FAMILY HAD DECIDED ON DNR STATUS, BUT OK?D SHORT TERM INTUBATION IF NECESSARY. Overnight on May 10, the patient became hypoxemic. That morning May 11, chest x-ray for the 1st time showed significant bibasilar ill-defined infiltrates. Later that morning, an ABG showed severe hypercarbia. The patient was therefore intubated and tx to ICU, where he subsequently required bron choscopy for refractory hypoxemia with heavy tracheal secretion burden that was unable to be cleared out by in-line suction. The patient was extubated on 05/12/2020, however required re-intubation the same day secondary to recurrent aspiration resulting in hypoxic and hypercapnic respiratory failure. ECHO on May 12 showed: - Normal left ventricular size and systolic function, w moderately increased left ventricular wall thickness. EF 60-65%. - Elevated filling pressures. - Mildly increased RV cavity size, w normal RV systolic function. - IVC is dilated w <50% inspiratory collapse. The patient underwent brain MRI on May 11, which was read by the neuroradiologist as showing nonspecific signal changes of unclear significance. Also noted was a severe disc protrusion at C4-C5 w mass effect on the cervical spinal cord and severe central canal stenosis. An MRI with contrast and cervica l spine MRI were recommended. The propofol was turned off on May 14 in the morning, and he hasn?t yet become interactive. Early on, the best neuro response was partial eye opening to stimulation, but nothing purposeful. No response to commands or confrontation. EEG done on 05/14 showed diffuse background slowing consistent with a diffuse encephalopathic process; no epileptiform discharges. We repeated the MRI with contrast and did the c-spine MR on 05/15. There was no abnormal mass or enhancement in the brain. The c-spine showed severe canal stenosis with compression of the cervical spinal cord at C4-C5 and C5-C6 w AP narrowing of the canal at the level of C1, and severe bilateral neuroforaminal encroachment at C4-C5 and C5-C6. I spoke w the patient?s and she said he?s had leg weakness and has been using a walker for some years. He also has bilat upp extrem weakness, hard to raise his arms above his shoulders. I spoke with Dr. Manning from neurosurgery at [facility] who indicated the patient would need c-spine surgery, but not until his mental status recovered. Diagnostic LP on 05/16 showed all normal labs except for a very high protein level. 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 Since then, mental status has slightly but definitely lightened. He opens his eyes wider and more readily, he seems to occasionally respond to confrontation, he?s more active in the bed, and he seems to maybe occasionally, but rarely, respond with a nod of the head or a thumbs up. We try mult times daily to get him to respond to command, and out of dozens of those attempts, he seems to respond purposefully maybe once a day. Moving all four extrems spontaneously. All sedatives still off, just treating him with ? mg Dilaudid when he looks uncomfortable. safety tech seem intact, no gross neuro focality. PERRL about 3mm. See Vital Signs below. He?s on Levophed 0.02ug. HR 40-60?s, SR. BP 132/57. Continues afebrile. On BiLevel 14, pressures 22/5, PSV 20, 28%, RR is 15, Vt 520cc, Ve 7.3L, ETCO2 40, Sat 96%. CVBG this morning showed 7.39/39/+0. No JVD at 30?. Chest is CTA, with normal exp phase. Abdomen has good BS, benign. Minimal edema. Mult sores and abrasions on his arms and legs. Both lower legs still erythematous, maybe improved somewhat from admission as far as I can tell from looking at his admission photos. Does not look to me like he currently has cellulitis. CURRENT MEDICATIONS include: Betamethasone topical Pepcid 20 mg daily Heparin 5000 units Q8h IVIG Solumedrol (for the IVIG) Insulin SQ sliding scale Levothyroxine LABORATORY DATA: As below. BUN/creat 80/2.7 (BUN up maybe 2? steroids). IMPRESSION: 1. Underlying obesity, congestive heart failure, COPD 2. Obtundation. Etiology still undiscovered. 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 But his symptom history is not really consistent with GBS. If the cause is metabolic, the most likely (the only) culprit would be the propofol, but we?ve pretty much run out of time on that. Given that there is some improvement in his neuro status since we started the IVIG, we?re continuing the 5-day course. Dr. Garzon saw him again today. Discussed his situation. We?ll repeat the MRI tomorrow. 3. Acute on chronic congestive heart failure, with right heart failure, by 2D echo. 4. Acute hypercapnic respiratory failure. Serum bicarb levels were normal on admission, which is inconsistent with chronic CO2 retention. A venous blood gas done 05/10 showed normal pCO2. What accounted for his sudden hypercarbia the next morning, 05/11, is not certain, (he did not get any opiates), but was most likely 2? aspiration, as shown by the CXR. 5. ID: Pulmonary aspiration with resultant aspiration pneumonia. Finished an empiric 7-day course of Unasyn. Does not look like he has lower extremity c ellulitis at this time. 6. Acute renal failure. Undoubtedly has cardiorenal syndrome. When acute resp failure occurs in patients with RHF and acute renal failure, the mortality rate is very high. RHF will limit the amount he can be diuresed. Stopped the diuresis on 05/14 and his indices seem to have plateaued. He?s got no JVD, minimal edema. I think he?s as dry as he can get. 7. Hypernatremia. Resolved with D5W infusion. 8. DM. Continue insulin SQ sliding scale. 9. Underlying history of hypothyroidism. On Levothyroid. 10. Cervical myelopathy. I spoke with Dr. Manning from neurosurgery at [facility]. Read him the MRI report. In his opinion, the patient would need surgery, but would not be a candidate until his encephalopathy is resolved. Does not need a collar at this time. If needed to be intubated, use in-line stabilization with Glidescope. 11. Nutrition. On tube feeds. Critical care time: 50+ min Physical Exam Vital Signs: Vital Signs: Last Vital Signs Temp 98.1 F 05/20/20 15:00 Pulse 58 05/20/20 15:00 Resp 15 05/20/20 15:00 BP 109/90 H 05/20/20 14:00 Pulse Ox 97 05/20/20 15:00 Body Mass Index 39.4 Objective Data Labs CBC & Chem 7: 05/20/20 08:16 05/20/20 08:16 Labs: Laboratory Results - last 24 hr 05/16/20 05/19/20 05/19/20 12:30 17:44 23:27 WBC RBC Hgb Hct MCV MCH MCHC RDW Plt Count MPV Immature Gran % (Auto) Neut % (Auto) Lymph % (Auto) [place] % (Auto) Eos % (Auto) Baso % (Auto) Lymph # (Auto) [place] # (Auto) Eos # (Auto) Baso # (Auto) Abs Immat Gran (auto) Absolute Neuts (auto) Absolute Nucleated RBC Nucleated RBC % (auto) Smear Tech's Comments VBG pH VBG pCO2 VBG pO2 VBG HCO3 VBG O2 Saturation VBG Base Excess Sodium Potassium Chloride Carbon Dioxide Anion Gap BUN Creatinine Estim Creat Clear Calc Estimated GFR POC Glucose 170 H 228 H Random Glucose Calcium Total Bilirubin AST ALT Alkaline Phosphatase Total Protein Albumin CSF VDRL Nonreactive 05/20/20 05/20/20 05/20/20 05:58 08:16 08:16 WBC 6.3 RBC 2.72 L Hgb 7.9 L Hct 25.5 L MCV 93.8 MCH 29.0 MCHC 31.0 RDW 15.1 Plt Count 449 H MPV 9.9 Immature Gran % (Auto) 0.6 H Neut % (Auto) 86.4 H Lymph % (Auto) 5.7 L [place] % (Auto) 7.1 Eos % (Auto) 0.0 Baso % (Auto) 0.2 Lymph # (Auto) 0.4 L [place] # (Auto) 0.5 Eos # (Auto) 0.0 Baso # (Auto) 0.0 Abs Immat Gran (auto) 0.04 H Absolute Neuts (auto) 5.5 Absolute Nucleated RBC 0.000 Nucleated RBC % (auto) 0.0 Smear Tech's Comments VERIFIED VBG pH VBG pCO2 VBG pO2 VBG HCO3 VBG O2 Saturation VBG Base Excess Sodium 141 Potassium 4.2 Chloride 108 Carbon Dioxide 23 Anion Gap 14 BUN 80 H* Creatinine 2.76 H Estim Creat Clear Calc 26.1 Estimated GFR 23 POC Glucose 198 H Random Glucose 199 H Calcium 8.1 L Total Bilirubin < 0.2 AST 33 ALT 43 H Alkaline Phosphatase 77 Total Protein 8.0 Albumin 3.0 L CSF VDRL 05/20/20 05/20/20 08:18 11:50 WBC RBC Hgb Hct MCV MCH MCHC RDW Plt Count MPV Immature Gran % (Auto) Neut % (Auto) Lymph % (Auto) [place] % (Auto) Eos % (Auto) Baso % (Auto) Lymph # (Auto) [place] # (Auto) Eos # (Auto) Baso # (Auto) Abs Immat Gran (auto) Absolute Neuts (auto) Absolute Nucleated RBC Nucleated RBC % (auto) Smear Tech's Comments VBG pH 7.39 VBG pCO2 39 VBG pO2 107 VBG HCO3 24 VBG O2 Saturation 95.0 VBG Base Excess 0.0 Sodium Potassium Chloride Carbon Dioxide Anion Gap BUN Creatinine Estim Creat Clear Calc Estimated GFR POC Glucose 163 H Random Glucose Calcium Total Bilirubin AST ALT Alkaline Phosphatase Total Protein Albumin CSF VDRL Microbiology Microbiology Results: Microbiology 05/16/20 12:30 Cerebrospinal Fluid Gram Stain - Final 05/16/20 12:30 Cerebrospinal Fluid CSF Examination - Final 05/16/20 12:30 Cerebrospinal Fluid Fluid Description - Final 05/16/20 12:30 Cerebrospinal Fluid CSF Culture - Final No growth after 3 days. 05/06/20 14:27 Blood - Venous Blood Culture - Final No growth after 5 days. 05/06/20 14:24 Blood - Venous Blood Culture - Final No growth after 5 days. Progress Note: A&P Time Spent With Patient Time: Total time spent is greater than 50% in coordination of care (as documented) at patient's floor/unit and/or counseling patient: Total time spent with greater than 50% in coordination of care (as documented) at patient's floor/unit and/or counseling patient:: 0 Critical Care Time Critical Care Time (minutes): 60
[2020-05-20] MEDS: methylPREDNISolone Sod Succ 40 MG/ML VIAL IVPUSH (17:43)
[2020-05-20] MEDS: Acetaminophen 325 MG TABLET 650 MG PO (17:44)
[2020-05-20] MEDS: HYDROmorphone HCl 0.5 MG/0.5 ML SYRINGE IVPUSH (17:44)
[2020-05-20] MEDS: diphenhydrAMINE HCL 50 MG/ML VIAL 25 MG IV (17:45)
[2020-05-20 18:14] LABS: Glucose, Whole Blood 155 mg/dL (60-115)
--- NOTE | 2020-05-20 20:10 | PC.NURSE ---
assumed care at 0700. Patient largely unarousable today, yet is often seen to bite the ETT, biteblock in place, thrashes head back and forth, pulls against restraints, pedals feet bilaterally randomly; only one apparent command followed today, right thumb was lifted. Neuro in to see patient today, order for MRI for tomorrow. Patient does appear uncomfortble at times, and MD aware, PRN dilaudid 0.5 mg given this evening per CPOE. Patient continues on ventilator, bilevel settings were changed this evening to determine if patient is overbreathing, and he is. 7.5 ett, 26 cm navjot; bilevel settings 20/5; rate 10; fio2 25%; PS 18; tidal volumes range widely 250-660 observed; minute volumes around 7-9. Patient spo2 95-97%. large amount of thin clear inline secretions, moderate clear oral secretions. Patient seen to have bit tongue on left side of tongue twice in last two days, small purple area on left side medial tongue, minimal bloody secretions yesterday. Patient with some rhonchi throuhout this evening. TLC to right IJ noted to have no blood return. 100-250 ccs per hour pale yellow urine from lenny, Dr. Hodgson and Dr. Lopez aware. POCs 160's, 150's, covered with 2 units twice. medium formed BM today, brown. edema to left hand improving, but still left greater than right. patient noted not to move left hand as much as right. Patient continues on Jevity 60 ccs / hour, 240 h20 q8 hours, plan to restart glucerna when available.
[2020-05-20 23:40] LABS: Glucose, Whole Blood 232 mg/dL (60-115)
[2020-05-21] VITALS (32 sets, daily range): BP systolic 90–153; BP diastolic 37–73; PULSE 62–122; RESP 14–30; TEMP 33.8–37.4; O2SAT 90–99; BMI 39.6
--- NOTE | 2020-05-21 | EEG_ITS ---
This is a 16-channel portable EEG performed in ICU. The patient was reported intubated and restless. Background EEG rhythm was low amplitude, 5 to 20 hertz in theta to delta range with no obvious asymmetry or paroxysmal tendency, sharp waves or spikes. Photic stimulation does not produce any driving and hyperventilation is not performed. IMPRESSION: Generalized slowing with no evidence of seizure disorder. MD TROY Ngyuen/MACI / [id number]
[2020-05-21 06:13] LABS: Basophils Percent Auto 0.2 % (0-2); Hematocrit 25.9 % (42-52); Hemoglobin 8.1 g/dl (14.0-18.0); Imm Gran Abs Auto 0.03 X10*3/uL (0.00-0.03); Imm Gran Pct Auto 0.5 % (0.0-0.4); Lymphocytes Absolute Auto 0.3 X10*3/uL (1.2-4.9); Lymphocytes Percent Auto 5.2 % (20-40); MANUAL DIFF FLAG SCAN; Mean Corpuscular HGB Conc 31.3 g/dl (31.0-36.0); Mean Corpuscular Hemoglobin 29.1 pg (27.0-33.0); Mean Corpuscular Volume 93.2 fL (80-98); Mean Platelet Volume 10.2 fL (9.4-12.4); Monocytes Absolute Auto 0.4 X10*3/uL (0.1-1.2); Monocytes Percent Auto 5.4 % (2-11); Neutrophils Absolute Auto 5.8 X10*3/uL (2.0-8.3); Neutrophils Percent Auto 88.7 % (45-73); Platelet Count 460 X10*3/uL (160-400); Red Blood Count 2.78 X10*6/uL (4.60-5.80); Red Cell Distribution Width 15.2 % (11.0-16.0); SCAN SMEAR FLAG 1; White Blood Count 6.5 X10*3/uL (4.8-10.8)
[2020-05-21 06:16] LABS: Glucose, Whole Blood 141 mg/dL (60-115)
[2020-05-21 06:19] LABS: VBG Base Excess 0.4 mmol/L; VBG HCO3 24 mmol/L (22-26); VBG pCO2 34 mmHg; VBG pH 7.44 (7.32-7.43); VBG pO2 127 mmHg
[2020-05-21 06:21] LABS: Venous Blood Gas Refer to POC result
[2020-05-21 06:51] LABS: Alanine Aminotransferase 51 U/L (0-40); Albumin Level 2.8 g/dL (3.5-5.0); Alkaline Phosphatase 70 U/L (39-117); Anion Gap 14 (12-20); Aspartate Amino Transferase 44 U/L (5-37); Bilirubin Total 0.3 mg/dL (0.0-1.0); Blood Urea Nitrogen 79 mg/dL (9-16); Calcium 7.9 mg/dL (8.4-10.2); Carbon Dioxide 21 mmol/L (22-29); Chloride 110 mmol/L (96-108); Creatinine Clr Calc Pharmacy 28.3; Estimated Glomerular Filt Rate 25; Glucose Random 156 mg/dL (60-115); Sodium 140 mmol/L (135-145)
[2020-05-21 06:54] LABS: SLIDE REVIEW VERIFIED
[2020-05-21] MEDS: Levothyroxine Sodium 125 MCG TABLET PO (07:43)
[2020-05-21] MEDS: Heparin Sodium,Porcine 5,000 UNIT/ML VIAL 5000 UNIT SUBCUT (07:44)
[2020-05-21] MEDS: Famotidine/PF 20 MG/2 ML VIAL IVPUSH (07:44)
[2020-05-21] MEDS: Betamethasone Dip Aug 0.05% Cr 15 GM TUBE 1 APPL TOPICAL ×2 (07:44→21:11)
[2020-05-21] MEDS: Chlorhexidine Gluc Oral Rinse 15 ML MOUTHWASH BUCCAL ×3 (07:44→21:11)
[2020-05-21] MEDS: Nystatin Powder 15 GM BOTTLE 1 APPL TOPICAL ×3 (07:44→21:11)
[2020-05-21] MEDS: 0.9 % Sodium Chloride Flush 3 ML SYRINGE IVFLUSH ×3 (07:44→21:12)
--- NOTE | 2020-05-21 09:35 | MHC.CLN ---
RE: CONSULT AND F/U PT WITH WORSENING WOUNDS PT RECEIVING TF FORMULA GLUCERNA AT MAX GOAL RATE 60CC/HR WITH 240CC FREE WATER Q 8 HRS PROVIDES 1440KCALS (23KCALS/KG BASED ON IBW), 60G PROTEIN (1.0G/KG), 1948CC FREE WATER FROM FORMULA AND FLUSHES (31CC/KG BASED ON IBW) RECOMMEND ADDING 30ML PROSOURCE BID VIA OG TUBE TO INCREASE PROTEIN TO PROVIDE 90G PROTEIN TOTAL (1.45G/KG BASED ON IBW) FOR WOUND HEALING MONITOR TOLERANCE, RESIDUALS AND LYTES
[2020-05-21 12:14] LABS: Glucose, Whole Blood 102 mg/dL (60-115)
[2020-05-21 15:02] LABS: Erythrocyte Sedimentation Rate 115 MM/HR (0-15)
--- NOTE | 2020-05-21 16:41 | PM.CCPN ---
Subjective Subjective Date of Service: 05/21/20 Interval History: 74-year-old male who was noted to be altered for several days at home with Kayode slower response brought by family to the emergency room initially oriented slow to answer and after 4 or 5 days in the hospital being treated for cellulitis on clindamycin became completely of tongue did with acute hypercarbic respiratory failure emergently intubated and now 1 week after discontinuation of all sedation he still remains encephalopathic maintaining certain brainstem functions pupils equal and reactive to light he has conjugate gaze right and left he has positive corneals is got facial nerve function he has gag reflex spontaneous respiration but still no response to verbal the has very minimal response to to pain and currently is off all antibiotics and sedation and he did receive a course of IV immunoglobulin for the possibility of a acute demyelinating encephalopathic process and the only abnormality on LP exam was an elevated protein of 140 mg % and possible aseptic meningitis but preliminary screen has been negative for the CSF most especially for treatable infections so the question now for the sake of the family is to try to gauge prognosis to figure out if he would currently be a candidate for tracheostomy and PEG tube with a longer opportunity to reversed the encephalopathy Physical Exam Vital Signs: Vital Signs: Last Vital Signs Temp 97.5 F 05/21/20 16:00 Pulse 74 05/21/20 16:00 Resp 21 H 05/21/20 16:00 BP 126/57 L 05/21/20 16:00 Pulse Ox 93 05/21/20 16:00 Body Mass Index 39.6 Const: Other: Again he has some spontaneous movement of both upper extremities none of the lower and he forcibly shut his eyes resist opening but he has equal and reactive pupils and he does have conjugate gaze to both right and left preserved corneal response but absolutely minimal pain response manifested by a grimace but there is gag and spontaneous respiration that is noted No neck vein distension and he has good bilateral carotid upstrokes and he has no murmurs or gallops Course ventilatory sounds on chest exam Abdomen is excepting his p.o. intake with good bowel sounds and soft with no organomegaly Skin on his lower extremities appears to be healing adequately just looks like residual stasis dermatitis but of course can not completely rule out the possibility that there could have been a vasculitic process or even a resolving cellulitis as originally thought Objective Data Labs CBC & Chem 7: 05/21/20 06:06 05/21/20 06:06 Labs: Laboratory Results - last 24 hr 05/20/20 05/20/20 05/21/20 18:10 23:36 06:06 WBC 6.5 RBC 2.78 L Hgb 8.1 L Hct 25.9 L MCV 93.2 MCH 29.1 MCHC 31.3 RDW 15.2 Plt Count 460 H MPV 10.2 Immature Gran % (Auto) 0.5 H Neut % (Auto) 88.7 H Lymph % (Auto) 5.2 L [place] % (Auto) 5.4 Eos % (Auto) 0.0 Baso % (Auto) 0.2 Lymph # (Auto) 0.3 L [place] # (Auto) 0.4 Eos # (Auto) 0.0 Baso # (Auto) 0.0 Abs Immat Gran (auto) 0.03 Absolute Neuts (auto) 5.8 Absolute Nucleated RBC 0.000 Nucleated RBC % (auto) 0.0 Smear Tech's Comments VERIFIED ESR VBG pH VBG pCO2 VBG pO2 VBG HCO3 VBG O2 Saturation VBG Base Excess Sodium Potassium Chloride Carbon Dioxide Anion Gap BUN Creatinine Estim Creat Clear Calc Estimated GFR POC Glucose 155 H 232 H Random Glucose Calcium Total Bilirubin AST ALT Alkaline Phosphatase Total Protein Albumin 05/21/20 05/21/20 05/21/20 06:06 06:12 06:14 WBC RBC Hgb Hct MCV MCH MCHC RDW Plt Count MPV Immature Gran % (Auto) Neut % (Auto) Lymph % (Auto) [place] % (Auto) Eos % (Auto) Baso % (Auto) Lymph # (Auto) [place] # (Auto) Eos # (Auto) Baso # (Auto) Abs Immat Gran (auto) Absolute Neuts (auto) Absolute Nucleated RBC Nucleated RBC % (auto) Smear Tech's Comments ESR VBG pH 7.44 H VBG pCO2 34 VBG pO2 127 VBG HCO3 24 VBG O2 Saturation 96.0 VBG Base Excess 0.4 Sodium 140 Potassium 5.0 Chloride 110 H Carbon Dioxide 21 L Anion Gap 14 BUN 79 H Creatinine 2.55 H Estim Creat Clear Calc 28.3 Estimated GFR 25 POC Glucose 141 H Random Glucose 156 H Calcium 7.9 L Total Bilirubin 0.3 AST 44 H ALT 51 H Alkaline Phosphatase 70 Total Protein 8.0 Albumin 2.8 L 05/21/20 05/21/20 12:11 14:03 WBC RBC Hgb Hct MCV MCH MCHC RDW Plt Count MPV Immature Gran % (Auto) Neut % (Auto) Lymph % (Auto) [place] % (Auto) Eos % (Auto) Baso % (Auto) Lymph # (Auto) [place] # (Auto) Eos # (Auto) Baso # (Auto) Abs Immat Gran (auto) Absolute Neuts (auto) Absolute Nucleated RBC Nucleated RBC % (auto) Smear Tech's Comments ESR 115 H VBG pH VBG pCO2 VBG pO2 VBG HCO3 VBG O2 Saturation VBG Base Excess Sodium Potassium Chloride Carbon Dioxide Anion Gap BUN Creatinine Estim Creat Clear Calc Estimated GFR POC Glucose 102 Random Glucose Calcium Total Bilirubin AST ALT Alkaline Phosphatase Total Protein Albumin Microbiology Microbiology Results: Microbiology 05/16/20 12:30 Cerebrospinal Fluid Gram Stain - Final 05/16/20 12:30 Cerebrospinal Fluid CSF Examination - Final 05/16/20 12:30 Cerebrospinal Fluid Fluid Description - Final 05/16/20 12:30 Cerebrospinal Fluid CSF Culture - Final No growth after 3 days. 05/06/20 14:27 Blood - Venous Blood Culture - Final No growth after 5 days. 05/06/20 14:24 Blood - Venous Blood Culture - Final No growth after 5 days. 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 Non-Oliguric JETT: SCr remains stable at 3.0 range; sepsis assoc ATN 2. CKD 3b: bsl SCr 2.0; etiol unclear but its been longstanding; UA unremarkable; suspecty age related vs HTN nephrosclerosis 3.. HyperNa: resolved 4.. cellulitis 5, Rsp failure: on vent 6. Sepsis 7. Neuro: w/u as noted and now on IVGG 8. TBFOL: vol status looks ok w chronic venous stasis Disproportionate increase in BUN due to steroids REC: No indication for dialysis yet but will cont to track closely; cont to track UOP and renal func; avoid NToxins; optimize hemodyanamics/resp as per ICU team; cont diuretic as need prn will follow with team Status: Acute (7) Acute respiratory failure with hypercapnia: Status: Acute (8) Anemia: Status: Acute (9) Encephalopathy: Status: Acute (10) Hypoxemia requiring supplemental oxygen: Status: Acute (11) Acute metabolic encephalopathy: Status: Acute (12) Aspiration pneumonia: Status: Acute (13) Cellulitis: Problem details: resolved Status: Acute (14) CKD (chronic kidney disease), stage III: Status: Acute (15) Hypernatremia: Status: Acute Assessment and Plan: Currently he has got a stable degree stage III renal failure but no metabolic abnormality associated and clearly has a compensated blood gas and has been a week off of all sedation and the last eeg a week ago did show encephalopathy so this needs to be repeated and his LP at that time showed an elevated protein of 140 that to probably needs to be repeated and possibly to send off the protein for a at electrophoretic but process as well as a more extensive search for underlying vasculitic or even lymphoproliferative process and possibly you know follow up to see if any of the viral or aspiring heat titers have changed to account for this encephalopathy and if none of this workup is rid at all revealing he might be might yet need a repeat on the MRI but today's blood flow nuclear scan did indicate that he does have flow Time Spent With Patient Time: Total time spent is greater than 50% in coordination of care (as documented) at patient's floor/unit and/or counseling patient: Total time spent with greater than 50% in coordination of care (as documented) at patient's floor/unit and/or counseling patient:: 45
--- NOTE | 2020-05-21 16:49 | HO.WOUNDCONS ---
History of Present Illness Data of Consult Service Date: 05/21/20 Requesting physician: Sammy Lopez Primary Care Provider: Unknown Physician HPI Reason for consult: coccyx wound 74-year-old male with altered mental status, cervical my up a thick, he on brace syndrome, diastolic heart failure obtained in intubated. Has been hospitalized since May 06. Unclear if he was ambulatory prior to admission or how much. Asked to see wound on coccyx and picture is compared to admission certainly show progression over his hospital course. [facility]LY [facility] Medical History CHF (congestive heart failure) Diabetes HTN (hypertension) Hypothyroidism Functional capacity: uses cane/walker Family history: reviewed and not pertinent Social History Household Members: Spouse Housing: House Alcohol intake: unknown Smoking Status: Unknown if ever smoked service: No Current occupational status: retired Meds Allergies Allergy/AdvReac Type Severity Reaction Status Date / Time No Known Allergies Allergy Unknown NONE Unverified 11/17/19 14:44 Active Medications: Current Medications Generic Name Dose Route Start Last Admin Trade Name Freq PRN Reason Stop Dose Admin Betamethasone Dipropion Augmented 1 appl 05/07/20 21:00 05/21/20 07:44 Betamethasone Dip Aug 0.05% Cr 15 Gm Tube TOPICAL 1 appl BID COSME Administration Protocol Chlorhexidine Gluconate 15 ml 05/11/20 15:00 05/21/20 07:44 Chlorhexidine Gluc Oral Rinse 15 Ml Mouthwash BUCCAL 15 ml TID COSME Administration Famotidine 20 mg 05/12/20 09:00 05/21/20 07:44 Famotidine/Pf 20 Mg/2 Ml Vial IVPUSH 20 mg DAILY COSME Administration Heparin Sodium (Porcine) 5,000 unit 05/14/20 23:30 05/21/20 16:44 Heparin Sodium,Porcine 5,000 Unit/Ml Vial SUBCUT Not Given Q8H COSME Hydromorphone HCl 0.5 mg 05/20/20 16:46 05/20/20 17:44 Hydromorphone Hcl 0.5 Mg/0.5 Ml Syringe IVPUSH 0.5 mg Q30M PRN Administration DISCOMFORT/RESPIRATORY DISTRESS Norepinephrine Bitartrate 8 mg in 250 mls @ 0 mls/hr 05/11/20 11:15 05/20/20 20:49 Levophed IVCONT 0 mcg/kg/min .Q0M [facility] 0 mls/hr Titration Protocol Per Protocol Insulin Human Lispro 0 unit 05/14/20 18:00 05/21/20 12:21 Insulin Lispro 100 Unit/Ml 3 Ml Vial SUBCUT Not Given 0000,0600,1200,1800 [facility] Protocol Levothyroxine Sodium 125 mcg 05/07/20 09:00 05/21/20 07:43 Levothyroxine Sodium 125 Mcg Tablet PO 125 mcg DAILY [facility] Administration Nystatin 1 appl 05/07/20 09:00 05/21/20 07:44 Nystatin Powder 15 Gm Bottle TOPICAL 1 appl TID [facility] Administration Protocol Sodium Chloride 3 ml 05/07/20 00:00 05/21/20 07:44 0.9 % Sodium Chloride Flush 3 Ml Syringe IVFLUSH 3 ml QSHIFT [facility] Administration Home Medications Medication Instructions Recorded Confirmed Last Taken Type furosemide 1 tab PO TID 05/06/20 05/06/20 Unknown History levothyroxine 1 tab PO DAILY 05/06/20 05/06/20 Unknown History metoprolol tartrate 1 tab PO DAILY 05/06/20 05/06/20 Unknown History spironolactone 1 tab PO BID 05/06/20 05/06/20 Unknown History tamsulosin 1 cap PO DAILY 05/06/20 05/06/20 Unknown History Physical Exam Vital Signs and Narrative: Vital Signs: Last Vital Signs Temp 97.5 F 05/21/20 16:00 Pulse 74 05/21/20 16:00 Resp 21 H 05/21/20 16:00 BP 126/57 L 05/21/20 16:00 Pulse Ox 93 05/21/20 16:00 Body Mass Index 39.6 Unstageable pressure ulcer of the coccyx is seen. Adherent slough requires debridement. Measures about 2.0 x 1.5 cm. A more superficial wound is seen superior to the coccygeal wound with slough. No periwound erythema, streaking or warmth to suggest active cellulitis. Results Labs CBC and Chem 7: 05/21/20 06:06 05/21/20 06:06 Labs: Laboratory Results - last 24 hr 05/20/20 05/20/20 05/21/20 18:10 23:36 06:06 MCV 93.2 MCH 29.1 MCHC 31.3 RDW 15.2 Plt Count 460 H MPV 10.2 Immature Gran % (Auto) 0.5 H Neut % (Auto) 88.7 H Lymph % (Auto) 5.2 L [place] % (Auto) 5.4 Eos % (Auto) 0.0 Baso % (Auto) 0.2 Lymph # (Auto) 0.3 L [place] # (Auto) 0.4 Eos # (Auto) 0.0 Baso # (Auto) 0.0 Abs Immat Gran (auto) 0.03 Absolute Neuts (auto) 5.8 Absolute Nucleated RBC 0.000 Nucleated RBC % (auto) 0.0 Smear Tech's Comments VERIFIED ESR VBG pH VBG pCO2 VBG pO2 VBG HCO3 VBG O2 Saturation VBG Base Excess Anion Gap Estim Creat Clear Calc Estimated GFR POC Glucose 155 H 232 H Random Glucose Calcium Total Bilirubin AST ALT Alkaline Phosphatase Total Protein Albumin 05/21/20 05/21/20 05/21/20 06:06 06:12 06:14 MCV MCH MCHC RDW Plt Count MPV Immature Gran % (Auto) Neut % (Auto) Lymph % (Auto) [place] % (Auto) Eos % (Auto) Baso % (Auto) Lymph # (Auto) [place] # (Auto) Eos # (Auto) Baso # (Auto) Abs Immat Gran (auto) Absolute Neuts (auto) Absolute Nucleated RBC Nucleated RBC % (auto) Smear Tech's Comments ESR VBG pH 7.44 H VBG pCO2 34 VBG pO2 127 VBG HCO3 24 VBG O2 Saturation 96.0 VBG Base Excess 0.4 Anion Gap 14 Estim Creat Clear Calc 28.3 Estimated GFR 25 POC Glucose 141 H Random Glucose 156 H Calcium 7.9 L Total Bilirubin 0.3 AST 44 H ALT 51 H Alkaline Phosphatase 70 Total Protein 8.0 Albumin 2.8 L 05/21/20 05/21/20 12:11 14:03 MCV MCH MCHC RDW Plt Count MPV Immature Gran % (Auto) Neut % (Auto) Lymph % (Auto) [place] % (Auto) Eos % (Auto) Baso % (Auto) Lymph # (Auto) [place] # (Auto) Eos # (Auto) Baso # (Auto) Abs Immat Gran (auto) Absolute Neuts (auto) Absolute Nucleated RBC Nucleated RBC % (auto) Smear Tech's Comments ESR 115 H VBG pH VBG pCO2 VBG pO2 VBG HCO3 VBG O2 Saturation VBG Base Excess Anion Gap Estim Creat Clear Calc Estimated GFR POC Glucose 102 Random Glucose Calcium Total Bilirubin AST ALT Alkaline Phosphatase Total Protein Albumin Imaging Radiologist's Impressions: Impressions Brain Flow Nuclear Medicine 05/21/20 15:25 IMPRESSION: Normal perfusion and isotope activity seen on delayed scan within the entire cerebrum and cerebellum consistent with viable brain parenchyma Results were discussed with ICU Dr. Lucas by phone at 4:00 PM. Assessment and Plan (1) Pressure injury of coccygeal region, unstageable: Start date: 05/21/20 Status: Acute TRIAD cream is recommended daily thickly over the wounds. Expect more drainage. Gauze and hypafix may be required versus supra absorbent dressing. Avoid occlusive foams. Alternatively, surgical consultation be could considered for debridement. The risk of this should be discussed with the family carefully before considering surgical consultation. Inclined to give TRIAD a one-week trial before considering surgical debridement. Thank you for allowing us to participate your patient's care.
--- NOTE | 2020-05-21 17:36 | PC.NURSE ---
Addendum entered by Lida Valle RN 05/21/20 18:59: blood return from blue port only from tlc in r IJ Original Note: Pt making non purposeful movements, occasionally with draws from pain. Continues to be off sedation since last thursday. Aafebrile, vss. Vent settings changed to PC rate 10, 15/5, fio2 25%. Suctioned thin clear secretions. Urine output wnl, moderate bm. Tube feeding glucerna at 60ml/hr with 240 of free water q8, and prosource added BID. Bathed, foam on coccyx, wound recommended triad for wound on coccyx, see wound note. Repo q2hr, barrier cream, prevalon mattress used. Family at bedside and updated with plan of care. Went for flow scan, results pending, plan for LP 05/22/20.
[2020-05-21 18:31] LABS: Glucose, Whole Blood 143 mg/dL (60-115)
[2020-05-21] MEDS: HYDROmorphone HCl 0.5 MG/0.5 ML SYRINGE IVPUSH (21:10)
--- NOTE | 2020-05-21 22:07 | PM.CCN ---
Critical Care Event Note Summary Date of Service: 05/21/20 <Ana Baron PA-C - Last Filed: 05/21/20 23:42> Code activated: No <Ana Baron PA-C - Last Filed: 05/21/20 23:42> Narrative: This case had a high probability of a clinically significant, sudden, or life threatening deterioration of this patient's condition which required my full and direct attention, intervention and personal management. At approx 9:15pm, pt started desatting to the mid 80's, pt asynchronous with the vent as well, unable to maintain tidal volumes. RN and RT were both unable to pass the suction catheter through the ET tube. Ordered stat chest x-ray, gave 2.25% racemic epi, 125mg Solu-Medrol. Tried lavaging without success. Tried AC mode but peak pressures increased significantly and no return TV. Patient difficult to bag, were able to bring oxygen saturation up to 99% with bagging but patient is still a synchronous with the vent. Performed bronchoscopy with bronchial lavage. Thick, tenacious, sticky white mucus plugging observed approx 12cm in, gave 2mL Mucomyst straight down the ET tube and nebulized to mL of Mucomyst. Patient's tidal volumes approximately 400, maintaining oxygen saturation of 99%. After the Mucomyst, we lavaged again with continued success clearing the mucus plugging, obtained a very thick, gelatinous white sputum sample sent for culture. <Ana Baron PA-C - Last Filed: 05/21/20 23:42> Critical Care Time (minutes): 45 <Ana Baron PA-C - Last Filed: 05/21/20 23:42>
[2020-05-21] MEDS: methylPREDNISolone Sod Succ 125 MG/2 ML VIAL IVPUSH (22:20)
[2020-05-21] MEDS: Racepinephrine HCL 0.5 ML VIAL.NEB INHALE (22:53)
[2020-05-22] VITALS (34 sets, daily range): BP systolic 91–138; BP diastolic 29–67; PULSE 51–100; RESP 14–28; TEMP 35.6–36.2; O2SAT 91–97; BMI 40.3
[2020-05-22] MEDS: Acetylcysteine 10 % 400 MG/4 ML VIAL INHALE ×6 (00:32→20:37)
[2020-05-22 00:42] LABS: Basophils Absolute Auto 0.1 X10*3/uL (0.0-0.2); Basophils Percent Auto 0.6 % (0-2); Eosinophils Absolute Auto 0.1 X10*3/uL (0.0-0.4); Eosinophils Percent Auto 0.6 % (0-4); Hematocrit 26.3 % (42-52); Hemoglobin 8.1 g/dl (14.0-18.0); Imm Gran Abs Auto 0.05 X10*3/uL (0.00-0.03); Imm Gran Pct Auto 0.6 % (0.0-0.4); Lymphocytes Absolute Auto 0.4 X10*3/uL (1.2-4.9); Lymphocytes Percent Auto 4.6 % (20-40); MANUAL DIFF FLAG SCAN; Mean Corpuscular HGB Conc 30.8 g/dl (31.0-36.0); Mean Corpuscular Hemoglobin 29.2 pg (27.0-33.0); Mean Corpuscular Volume 94.9 fL (80-98); Mean Platelet Volume 10.3 fL (9.4-12.4); Monocytes Absolute Auto 0.3 X10*3/uL (0.1-1.2); Monocytes Percent Auto 3.9 % (2-11); Neutrophils Absolute Auto 7.7 X10*3/uL (2.0-8.3); Neutrophils Percent Auto 89.7 % (45-73); Platelet Count 454 X10*3/uL (160-400); Red Blood Count 2.77 X10*6/uL (4.60-5.80); Red Cell Distribution Width 15.6 % (11.0-16.0); SCAN SMEAR FLAG 1; White Blood Count 8.6 X10*3/uL (4.8-10.8)
[2020-05-22 00:47] LABS: INTERNATIONAL NORM RATIO 1.1 (0.9-1.1); Prothrombin Time 12.9 SEC (10.8-13.0)
[2020-05-22 00:50] LABS: Partial Thromboplastin Time 32.6 SEC (24.1-38.0)
[2020-05-22 00:59] LABS: Lactic Acid 0.6 mmol/L (0.5-2.0)
[2020-05-22 01:04] LABS: SLIDE REVIEW VERIFIED
[2020-05-22] MEDS: Insulin Lispro 100 UNIT/ML 3 ML VIAL SUBCUT ×3 (01:04→18:11)
[2020-05-22 01:06] LABS: Glucose, Whole Blood 178 mg/dL (60-115)
[2020-05-22 01:06] LABS: Anion Gap 14 (12-20); Bilirubin Total 0.6 mg/dL (0.0-1.0); Blood Urea Nitrogen 80 mg/dL (9-16); Carbon Dioxide 24 mmol/L (22-29); Chloride 110 mmol/L (96-108); Creatinine Clr Calc Pharmacy 29.1; Estimated Glomerular Filt Rate 26; Glucose Random 182 mg/dL (60-115); Potassium 4.9 mmol/L (3.3-5.1); Sodium 143 mmol/L (135-145)
[2020-05-22 05:06] LABS: Glucose, Whole Blood 200 mg/dL (60-115)
--- NOTE | 2020-05-22 05:33 | PC.NURSE ---
UPON INITIAL SKIN ASSESSMENT- 4X4X1 CM OPEN AREA ON LOWER MEDIAL COCCYX AND 2X1 CM AREA ON UPPER MEDIAL COCCYX NOTED. NEW PICTURES TAKEN, PUT ON CHART. UPPER WOUND WITH SMALL AMOUNT OF SEROSANGUINOUS, PURULENT DRAINAGE. 1 CM OF UNDERMINING NOTED AT 0000. PER PA, PACKED WITH IODOFORM, GAUZE, COVERED WITH SACRAL FOAM DRESSING. WOUND CULTURE SENT. SURROUNDING SKIN REDDENED/MACERATED. NSG COUNSELOR AT LAW AWARE. AT APPROX 2100- PT DYSYNCHRONOUS, SpO2 80s, Vt 100-300s, Ve 3-4, UNABLE TO PASS INLINE SUCTION CATHETER. pCXR DONE. ?STRIDOR. IV SOLUMEDROL 125 MG IVP AND RACEMIC EPI UPD X1 GIVEN. BAGGED/LAVAGED WITH MINIMAL EFFECT. BRONCH DONE BY PA/RT, MUCOMYST GIVEN AND BRONCHIAL LAVAGE DONE WITH GOOD EFFECT. LARGE AMOUNT OF THICK/TENATIOUS CLEAR/WHITE SPUTUM SUCTIONED. SPUTUM SAMPLE SENT. CURRENTLY ON PCV 10 15/5/25%, Vt 400-500s, Ve 7-8, RR 20s, SpO2 > 90%.
[2020-05-22 05:56] LABS: Basophils Percent Auto 0.2 % (0-2); Hemoglobin 8.9 g/dl (14.0-18.0); Imm Gran Abs Auto 0.08 X10*3/uL (0.00-0.03); Imm Gran Pct Auto 0.8 % (0.0-0.4); Lymphocytes Absolute Auto 0.4 X10*3/uL (1.2-4.9); Lymphocytes Percent Auto 3.7 % (20-40); MANUAL DIFF FLAG SCAN; Mean Corpuscular HGB Conc 30.7 g/dl (31.0-36.0); Mean Corpuscular Volume 94.5 fL (80-98); Mean Platelet Volume 10.4 fL (9.4-12.4); Monocytes Absolute Auto 0.1 X10*3/uL (0.1-1.2); Monocytes Percent Auto 0.8 % (2-11); Neutrophils Percent Auto 94.5 % (45-73); Platelet Count 489 X10*3/uL (160-400); Red Blood Count 3.07 X10*6/uL (4.60-5.80); Red Cell Distribution Width 15.5 % (11.0-16.0); SCAN SMEAR FLAG 1; White Blood Count 9.5 X10*3/uL (4.8-10.8)
[2020-05-22 06:09] LABS: Ammonia 51 umol/L (13-55)
[2020-05-22 06:23] LABS: INTERNATIONAL NORM RATIO 1.1 (0.9-1.1); Prothrombin Time 12.9 SEC (10.8-13.0)
[2020-05-22 06:25] LABS: Partial Thromboplastin Time 31.8 SEC (24.1-38.0)
[2020-05-22 06:33] LABS: Alanine Aminotransferase 53 U/L (0-40); Alkaline Phosphatase 77 U/L (39-117); Anion Gap 15 (12-20); Aspartate Amino Transferase 36 U/L (5-37); Bilirubin Direct 0.2 mg/dL (0.0-0.5); Bilirubin Total 0.3 mg/dL (0.0-1.0); Blood Urea Nitrogen 85 mg/dL (9-16); Calcium 8.4 mg/dL (8.4-10.2); Carbon Dioxide 23 mmol/L (22-29); Chloride 109 mmol/L (96-108); Creatinine Clr Calc Pharmacy 29.5; Estimated Glomerular Filt Rate 26; Glucose Random 236 mg/dL (60-115); Magnesium 3.3 mg/dL (1.6-2.6); Phosphorus 5.3 mg/dL (2.7-4.5); Potassium 5.4 mmol/L (3.3-5.1); Sodium 142 mmol/L (135-145); Total Protein 8.1 g/dL (6.5-8.0)
[2020-05-22 06:38] LABS: Procalcitonin 0.11 ng/mL
[2020-05-22 06:42] LABS: D Dimer 2393 NG/ML
[2020-05-22] MEDS: Albuterol/Iprat 2.5/0.5MG 3 ML AMPUL.NEB INHALE ×4 (07:36→20:36)
[2020-05-22] MEDS: 0.9 % Sodium Chloride Flush 3 ML SYRINGE IVFLUSH ×3 (08:25→23:31)
[2020-05-22] MEDS: Famotidine/PF 20 MG/2 ML VIAL IVPUSH (08:25)
[2020-05-22] MEDS: Chlorhexidine Gluc Oral Rinse 15 ML MOUTHWASH BUCCAL ×3 (08:25→22:29)
[2020-05-22] MEDS: Furosemide 40 MG/4 ML VIAL IVPUSH (08:25)
[2020-05-22] MEDS: Levothyroxine Sodium 125 MCG TABLET PO (08:25)
[2020-05-22 08:32] LABS: B Type Natriuretic Peptide 227 pg/mL (<100)
[2020-05-22] MEDS: Nystatin Powder 15 GM BOTTLE 1 APPL TOPICAL ×3 (08:37→22:31)
[2020-05-22] MEDS: Betamethasone Dip Aug 0.05% Cr 15 GM TUBE 1 APPL TOPICAL ×2 (08:37→22:30)
[2020-05-22 08:38] LABS: Glucose Urine UA NEG (NEG); Leukocyte Esterase Urine NEG (NEG); Nitrite Urine NEG (NEG); Urine Blood NEG (NEG); Urine Ketones NEG (NEG); Urine Protein NEG (NEG-TRACE)
[2020-05-22 08:40] LABS: Appearance Urine CLEAR; Color Urine YELLOW
[2020-05-22 08:50] LABS: Mucus Urine 1+ /LPF; Renal Epithelial Cells Urine TRACE /LPF; Squamous Epithelial Cell Urine TRACE /LPF; WBC Urine 0-2 /HPF (0-4)
[2020-05-22] MEDS: Thiamine HCL 100 MG TABLET PO (10:05)
--- NOTE | 2020-05-22 11:46 | PM.IDPN ---
Subjective Subjective Date of Service: 05/21/20 Interval History: encephalopathy he has been unresponsive for five days he has been hypercarbic CSF has not shown infection Objective Data Labs CBC & Chem 7: 05/22/20 05:24 05/22/20 05:24 Labs: Laboratory Results - last 24 hr 05/21/20 05/21/20 05/21/20 12:11 14:03 18:18 WBC RBC Hgb Hct MCV MCH MCHC RDW Plt Count MPV Immature Gran % (Auto) Neut % (Auto) Lymph % (Auto) [place] % (Auto) Eos % (Auto) Baso % (Auto) Lymph # (Auto) [place] # (Auto) Eos # (Auto) Baso # (Auto) Abs Immat Gran (auto) Absolute Neuts (auto) Absolute Nucleated RBC Nucleated RBC % (auto) Smear Tech's Comments ESR 115 H PT INR APTT D-Dimer Sodium Potassium Chloride Carbon Dioxide Anion Gap BUN Creatinine Estim Creat Clear Calc Estimated GFR POC Glucose 102 143 H Random Glucose Lactic Acid Calcium Phosphorus Magnesium Total Bilirubin Direct Bilirubin AST ALT Alkaline Phosphatase Ammonia B-Natriuretic Peptide Total Protein Albumin Procalcitonin Urine Color Urine Appearance Urine pH Ur Specific [place] Urine Protein Urine Glucose (UA) Urine Ketones Urine Blood Urine Nitrite Ur Leukocyte Esterase Urine RBC Urine WBC Ur Squamous Epith Cells Ur Renal Epithelial Cell Urine Bacteria Urine Mucus 05/22/20 05/22/20 05/22/20 00:14 00:14 00:14 WBC 8.6 RBC 2.77 L Hgb 8.1 L Hct 26.3 L MCV 94.9 MCH 29.2 MCHC 30.8 L RDW 15.6 Plt Count 454 H MPV 10.3 Immature Gran % (Auto) 0.6 H Neut % (Auto) 89.7 H Lymph % (Auto) 4.6 L [place] % (Auto) 3.9 Eos % (Auto) 0.6 Baso % (Auto) 0.6 Lymph # (Auto) 0.4 L [place] # (Auto) 0.3 Eos # (Auto) 0.1 Baso # (Auto) 0.1 Abs Immat Gran (auto) 0.05 H Absolute Neuts (auto) 7.7 Absolute Nucleated RBC 0.000 Nucleated RBC % (auto) 0.0 Smear Tech's Comments VERIFIED ESR PT INR APTT D-Dimer Sodium 143 Potassium 4.9 Chloride 110 H Carbon Dioxide 24 Anion Gap 14 BUN 80 H* Creatinine 2.48 H Estim Creat Clear Calc 29.1 Estimated GFR 26 POC Glucose Random Glucose 182 H Lactic Acid 0.6 Calcium 8.0 L Phosphorus Magnesium Total Bilirubin 0.6 Direct Bilirubin AST ALT Alkaline Phosphatase Ammonia B-Natriuretic Peptide Total Protein Albumin Procalcitonin Urine Color Urine Appearance Urine pH Ur Specific [place] Urine Protein Urine Glucose (UA) Urine Ketones Urine Blood Urine Nitrite Ur Leukocyte Esterase Urine RBC Urine WBC Ur Squamous Epith Cells Ur Renal Epithelial Cell Urine Bacteria Urine Mucus 05/22/20 05/22/20 05/22/20 00:25 01:02 05:02 WBC RBC Hgb Hct MCV MCH MCHC RDW Plt Count MPV Immature Gran % (Auto) Neut % (Auto) Lymph % (Auto) [place] % (Auto) Eos % (Auto) Baso % (Auto) Lymph # (Auto) [place] # (Auto) Eos # (Auto) Baso # (Auto) Abs Immat Gran (auto) Absolute Neuts (auto) Absolute Nucleated RBC Nucleated RBC % (auto) Smear Tech's Comments ESR PT 12.9 INR 1.1 APTT 32.6 D D-Dimer Sodium Potassium Chloride Carbon Dioxide Anion Gap BUN Creatinine Estim Creat Clear Calc Estimated GFR POC Glucose 178 H 200 H Random Glucose Lactic Acid Calcium Phosphorus Magnesium Total Bilirubin Direct Bilirubin AST ALT Alkaline Phosphatase Ammonia B-Natriuretic Peptide Total Protein Albumin Procalcitonin Urine Color Urine Appearance Urine pH Ur Specific [place] Urine Protein Urine Glucose (UA) Urine Ketones Urine Blood Urine Nitrite Ur Leukocyte Esterase Urine RBC Urine WBC Ur Squamous Epith Cells Ur Renal Epithelial Cell Urine Bacteria Urine Mucus 05/22/20 05/22/20 05/22/20 05:24 05:24 05:24 WBC 9.5 RBC 3.07 L Hgb 8.9 L Hct 29.0 L MCV 94.5 MCH 29.0 MCHC 30.7 L RDW 15.5 Plt Count 489 H MPV 10.4 Immature Gran % (Auto) 0.8 H Neut % (Auto) 94.5 H Lymph % (Auto) 3.7 L [place] % (Auto) 0.8 L Eos % (Auto) 0.0 Baso % (Auto) 0.2 Lymph # (Auto) 0.4 L [place] # (Auto) 0.1 Eos # (Auto) 0.0 Baso # (Auto) 0.0 Abs Immat Gran (auto) 0.08 H Absolute Neuts (auto) 9.0 H Absolute Nucleated RBC 0.000 Nucleated RBC % (auto) 0.0 Smear Tech's Comments ESR PT 12.9 INR 1.1 APTT 31.8 D-Dimer 2393 Sodium Potassium Chloride Carbon Dioxide Anion Gap BUN Creatinine Estim Creat Clear Calc Estimated GFR POC Glucose Random Glucose Lactic Acid Calcium Phosphorus Magnesium Total Bilirubin Direct Bilirubin AST ALT Alkaline Phosphatase Ammonia 51 B-Natriuretic Peptide Total Protein Albumin Procalcitonin Urine Color Urine Appearance Urine pH Ur Specific [place] Urine Protein Urine Glucose (UA) Urine Ketones Urine Blood Urine Nitrite Ur Leukocyte Esterase Urine RBC Urine WBC Ur Squamous Epith Cells Ur Renal Epithelial Cell Urine Bacteria Urine Mucus 05/22/20 05/22/20 05/22/20 05:24 05:24 05:24 WBC RBC Hgb Hct MCV MCH MCHC RDW Plt Count MPV Immature Gran % (Auto) Neut % (Auto) Lymph % (Auto) [place] % (Auto) Eos % (Auto) Baso % (Auto) Lymph # (Auto) [place] # (Auto) Eos # (Auto) Baso # (Auto) Abs Immat Gran (auto) Absolute Neuts (auto) Absolute Nucleated RBC Nucleated RBC % (auto) Smear Tech's Comments ESR PT INR APTT D-Dimer Sodium 142 Potassium 5.4 H Chloride 109 H Carbon Dioxide 23 Anion Gap 15 BUN 85 H* Creatinine 2.47 H Estim Creat Clear Calc 29.5 Estimated GFR 26 POC Glucose Random Glucose 236 H Lactic Acid Calcium 8.4 Phosphorus 5.3 H Magnesium 3.3 H Total Bilirubin 0.3 Direct Bilirubin 0.2 AST 36 ALT 53 H Alkaline Phosphatase 77 Ammonia B-Natriuretic Peptide 227 H Total Protein 8.1 H Albumin 3.0 L Procalcitonin 0.11 Urine Color Urine Appearance Urine pH Ur Specific [place] Urine Protein Urine Glucose (UA) Urine Ketones Urine Blood Urine Nitrite Ur Leukocyte Esterase Urine RBC Urine WBC Ur Squamous Epith Cells Ur Renal Epithelial Cell Urine Bacteria Urine Mucus 05/22/20 Unknown WBC RBC Hgb Hct MCV MCH MCHC RDW Plt Count MPV Immature Gran % (Auto) Neut % (Auto) Lymph % (Auto) [place] % (Auto) Eos % (Auto) Baso % (Auto) Lymph # (Auto) [place] # (Auto) Eos # (Auto) Baso # (Auto) Abs Immat Gran (auto) Absolute Neuts (auto) Absolute Nucleated RBC Nucleated RBC % (auto) Smear Tech's Comments ESR PT INR APTT D-Dimer Sodium Potassium Chloride Carbon Dioxide Anion Gap BUN Creatinine Estim Creat Clear Calc Estimated GFR POC Glucose Random Glucose Lactic Acid Calcium Phosphorus Magnesium Total Bilirubin Direct Bilirubin AST ALT Alkaline Phosphatase Ammonia B-Natriuretic Peptide Total Protein Albumin Procalcitonin Urine Color YELLOW Urine Appearance CLEAR Urine pH 6.0 Ur Specific [place] 1.020 Urine Protein NEG Urine Glucose (UA) NEG Urine Ketones NEG Urine Blood NEG Urine Nitrite NEG Ur Leukocyte Esterase NEG Urine RBC 1-4 Urine WBC 0-2 Ur Squamous Epith Cells TRACE Ur Renal Epithelial Cell TRACE Urine Bacteria NONE Urine Mucus 1+ Microbiology Microbiology Results: Microbiology 05/21/20 22:50 Sputum - Suctioned Gram Stain - Final 05/21/20 22:50 Sputum - Suctioned Sputum Culture - Preliminary No growth to date. 05/21/20 21:00 Sacrum Gram Stain - Final 05/21/20 21:00 Sacrum Routine Culture - Preliminary Culture in progress. 05/16/20 12:30 Cerebrospinal Fluid Gram Stain - Final 05/16/20 12:30 Cerebrospinal Fluid CSF Examination - Final 05/16/20 12:30 Cerebrospinal Fluid Fluid Description - Final 05/16/20 12:30 Cerebrospinal Fluid CSF Culture - Final No growth after 3 days. 05/06/20 14:27 Blood - Venous Blood Culture - Final No growth after 5 days. 05/06/20 14:24 Blood - Venous Blood Culture - Final No growth after 5 days. Physical Exam Vital Signs: Vital Signs: Last Vital Signs Temp 96.8 F 05/22/20 11:00 Pulse 74 05/22/20 11:14 Resp 21 H 05/22/20 11:00 BP 115/53 L 05/22/20 11:00 Pulse Ox 92 05/22/20 11:00 Body Mass Index 40.3 Const: General: cooperative HENMT: Head: Yes normal to inspection Mouth: Normal oral and palatal mucosa present Resp: Effort & Inspection: normal respiratory effort Cardio: Rate: regular rate Rhythm: regular rhythm GI: Palpation (GI): Soft to palpation and nontender Skin: Other: venous stasis changes General skin exam: no rashes or lesions noted Assessment and Plan Assessment and plan (1) Encephalopathy: Problem details: There are no infectious causes evident at this time His ESR checked on request and is over 100 There is concern over giant cell arteritis/vasculitis Status: Acute Assessment and Plan: Work up for vascular disease ?further testing?steroids or other treatment (2) Hypoxemia requiring supplemental oxygen: Status: Acute Time Spent With Patient Time: Total time spent is greater than 50% in coordination of care (as documented) at patient's floor/unit and/or counseling patient: Time with patient: 15 - 24 minutes
[2020-05-22 12:04] LABS: Glucose, Whole Blood 137 mg/dL (60-115)
[2020-05-22] MEDS: Midazolam HCl/PF 2 MG/2 ML VIAL 4 MG IVPUSH (12:32)
[2020-05-22 12:43] LABS: INTERNATIONAL NORM RATIO 1.1 (0.9-1.1); Prothrombin Time 12.9 SEC (10.8-13.0)
[2020-05-22 12:46] LABS: Partial Thromboplastin Time 30.8 SEC (24.1-38.0)
[2020-05-22 12:47] LABS: Rheumatoid Factor < 15.0 IU/mL (<15.0)
[2020-05-22] MEDS: Midazolam HCl/PF 2 MG/2 ML VIAL IVPUSH ×3 (13:00→23:28)
--- NOTE | 2020-05-22 13:56 | PC.NURSE ---
PT WENT TO IR FOR LUMBAR PUNCTURE AT 1230. VERSED 4MG IVP ADMINISTERED AT 1232. PT POSITIONED PRONE FOR MOST OF PROCEDURE, THEN TURNED ON LEFT LATERAL SIDE. AN ADDITIONAL DOSE OF VERSED 4MG IVP TO ASSIST WITH SEDATION AND MOVEMENT. PT BROUGHT BACK TO UNIT AT 1340. PER PT HAS TO REMAIN SUPINE FOR 2 HOURS AND HOB NO HIGHER THAN 10 DEGREES. WILL BE ABLE TO REPOSITION AT 1530.
[2020-05-22 14:51] LABS: CSF Tube # 1
--- NOTE | 2020-05-22 15:07 | MHC.CM.ED ---
Patient remains intubated/vented in ICU. Patient has been off sedation for [address] Lucas to meet with patient's family in regards to plan of care. Continue to monitor for d/c needs.
[2020-05-22 15:15] LABS: Glucose CSF 136 mg/dL
[2020-05-22 15:18] LABS: CSF Appearance Bloody
--- NOTE | 2020-05-22 15:50 | PC.NURSE ---
FAMILY MEETING WITH DR. DENT SET FOR THIS Thursday05/25/20 AT 11 AM. PTS FELY AND TWO CHILDREN KAMILLA WILL BE ATTENDING THE MEETING. COTTON STOMPER MADE AWARE OF MEETING. ROEL'S PHONE NUMBER: [phone]
[2020-05-22 15:54] LABS: Total Protein CSF 477.4 mg/dL (15-45)
--- NOTE | 2020-05-22 16:13 | P.PNCC_ITS ---
Subjective Subjective Date of Service: 05/22/20 Interval History: 74-year-old male a now here for well over 3 weeks originally for altered mental status mostly described as just is slow to respond but initially oriented and treated for cellulitis with clindamycin several days into hospitalization noted to be unresponsive developed acute hypercarbic respiratory failure was intubated without resolution a it was extubated and then promptly reintubated for a hypoxemic episode but not profoundly so with with probable aspiration and he has been reintubated ever since that time with a chest x-ray that really does not show significant residual a he remains on the ventilator only because more than a week off sedation he still has not had restored mental status and forcibly closes his eyes grimaces very little in the way of spontaneous movement of the then rocking his head no ocular motor issues no pupillary issues and we try to get more spinal fluid today unsuccessful we will looking to establish in etiology for his encephalopathy and imaging thus far has not revealed anything he remains with very slowly resolving renal insufficiency creatinine now down to 2.47 but BUN persistently elevated 85 no other significant metabolic change note fever spikes and last night apparently deve loped significant mucus plugging requiring aggressive lavage via bronchoscopy sputum samples are pending he is on empiric treatment with bronchodilators and Mucomyst but has not the knee regained any significant consciousness and always worried especially with a paucity of movement of all 4 extremities coupled with this the diminished consciousness level and without any apparent persistent metabolic issues as to whether the no this could be posterior circulation Physical Exam Vital Signs: Vital Signs: Last Vital Signs Temp 96.1 F L 05/22/20 16:00 Pulse 53 05/22/20 16:00 Resp 18 05/22/20 16:00 BP 94/49 L 05/22/20 16:00 Pulse Ox 95 05/22/20 16:00 Body Mass Index 40.3 Const: Other: Still remains unresponsive except for grimacing in response to painful stimulation no response to loud voice still remains comatose for all 4 extremities relatively flaccid but again he does have significant cervical spinal stenosis Cardiac exam unchanged with CVP approximately 10 and what appears to be increased diaphragmatic effort in his breathing besides bronchodilator therapy g ave him 1 dose of Lasix IV Excepting his p.o. intake with a benign belly good bowel sounds soft with no organomegaly Coarse bilateral ventilatory sounds Healing of lower extremities Objective Data Labs CBC & Chem 7: 05/22/20 05:24 05/22/20 05:24 Labs: Laboratory Results - last 24 hr 05/21/20 05/22/20 05/22/20 18:18 00:14 00:14 WBC 8.6 RBC 2.77 L Hgb 8.1 L Hct 26.3 L MCV 94.9 MCH 29.2 MCHC 30.8 L RDW 15.6 Plt Count 454 H MPV 10.3 Immature Gran % (Auto) 0.6 H Neut % (Auto) 89.7 H Lymph % (Auto) 4.6 L Bates % (Auto) 3.9 Eos % (Auto) 0.6 Baso % (Auto) 0.6 Lymph # (Auto) 0.4 L Bates # (Auto) 0.3 Eos # (Auto) 0.1 Baso # (Auto) 0.1 Abs Immat Gran (auto) 0.05 H Absolute Neuts (auto) 7.7 Absolute Nucleated RBC 0.000 Nucleated RBC % (auto) 0.0 Smear Tech's Comments VERIFIED PT INR APTT D-Dimer LA PTT Screen LA Thrombin Time dRVV Screen dRVVT Confirm Interp dRVVT Mixing Study dRVVT Mix Interpret Hexagon Phase Neutraliz Lupus Anticoag Interp Protein C Antigen Protein C Activity Protein S Activity Total Protein S Ag Free Protein S Antigen Antithrombin III Ag Factor V Leiden Factor V Leiden Interp Sodium Potassium Chloride Carbon Dioxide Anion Gap BUN Creatinine Estim Creat Clear Calc Estimated GFR POC Glucose 143 H Random Glucose Lactic Acid 0.6 Calcium Phosphorus Magnesium Total Bilirubin Direct Bilirubin AST ALT Alkaline Phosphatase Ammonia B-Natriuretic Peptide Total Protein Albumin Procalcitonin Urine Color Urine Appearance Urine pH Ur Specific [place] Urine Protein Urine Glucose (UA) Urine Ketones Urine Blood Urine Nitrite Ur Leukocyte Esterase Urine RBC Urine WBC Ur Squamous Epith Cells Ur Renal Epithelial Cell Urine Bacteria Urine Mucus CSF Tube Number CSF Appearance (b) CSF Glucose CSF Total Protein Rheumatoid Factor Prothrombin [id number] Mut Prothrombin Mut Interp 05/22/20 05/22/20 05/22/20 00:14 00:25 01:02 WBC RBC Hgb Hct MCV MCH MCHC RDW Plt Count MPV Immature Gran % (Auto) Neut % (Auto) Lymph % (Auto) Bates % (Auto) Eos % (Auto) Baso % (Auto) Lymph # (Auto) Bates # (Auto) Eos # (Auto) Baso # (Auto) Abs Immat Gran (auto) Absolute Neuts (auto) Absolute Nucleated RBC Nucleated RBC % (auto) Smear Tech's Comments PT 12.9 INR 1.1 APTT 32.6 D D-Dimer LA PTT Screen LA Thrombin Time dRVV Screen dRVVT Confirm Interp dRVVT Mixing Study dRVVT Mix Interpret Hexagon Phase Neutraliz Lupus Anticoag Interp Protein C Antigen Protein C Activity Protein S Activity Total Protein S Ag Free Protein S Antigen Antithrombin III Ag Factor V Leiden Factor V Leiden Interp Sodium 143 Potassium 4.9 Chloride 110 H Carbon Dioxide 24 Anion Gap 14 BUN 80 H* Creatinine 2.48 H Estim Creat Clear Calc 29.1 Estimated GFR 26 POC Glucose 178 H Random Glucose 182 H Lactic Acid Calcium 8.0 L Phosphorus Magnesium Total Bilirubin 0.6 Direct Bilirubin AST ALT Alkaline Phosphatase Ammonia B-Natriuretic Peptide Total Protein Albumin Procalcitonin Urine Color Urine Appearance Urine pH Ur Specific [place] Urine Protein Urine Glucose (UA) Urine Ketones Urine Blood Urine Nitrite Ur Leukocyte Esterase Urine RBC Urine WBC Ur Squamous Epith Cells Ur Renal Epithelial Cell Urine Bacteria Urine Mucus CSF Tube Number CSF Appearance (b) CSF Glucose CSF Total Protein Rheumatoid Factor Prothrombin [id number] Mut Prothrombin Mut Interp 05/22/20 05/22/20 05/22/20 05:02 05:24 05:24 WBC 9.5 RBC 3.07 L Hgb 8.9 L Hct 29.0 L MCV 94.5 MCH 29.0 MCHC 30.7 L RDW 15.5 Plt Count 489 H MPV 10.4 Immature Gran % (Auto) 0.8 H Neut % (Auto) 94.5 H Lymph % (Auto) 3.7 L Bates % (Auto) 0.8 L Eos % (Auto) 0.0 Baso % (Auto) 0.2 Lymph # (Auto) 0.4 L Bates # (Auto) 0.1 Eos # (Auto) 0.0 Baso # (Auto) 0.0 Abs Immat Gran (auto) 0.08 H Absolute Neuts (auto) 9.0 H Absolute Nucleated RBC 0.000 Nucleated RBC % (auto) 0.0 Smear Tech's Comments PT INR APTT D-Dimer LA PTT Screen LA Thrombin Time dRVV Screen dRVVT Confirm Interp dRVVT Mixing Study dRVVT Mix Interpret Hexagon Phase Neutraliz Lupus Anticoag Interp Protein C Antigen Protein C Activity Protein S Activity Total Protein S Ag Free Protein S Antigen Antithrombin III Ag Factor V Leiden Factor V Leiden Interp Sodium Potassium Chloride Carbon Dioxide Anion Gap BUN Creatinine Estim Creat Clear Calc Estimated GFR POC Glucose 200 H Random Glucose Lactic Acid Calcium Phosphorus Magnesium Total Bilirubin Direct Bilirubin AST ALT Alkaline Phosphatase Ammonia 51 B-Natriuretic Peptide Total Protein Albumin Procalcitonin Urine Color Urine Appearance Urine pH Ur Specific [place] Urine Protein Urine Glucose (UA) Urine Ketones Urine Blood Urine Nitrite Ur Leukocyte Esterase Urine RBC Urine WBC Ur Squamous Epith Cells Ur Renal Epithelial Cell Urine Bacteria Urine Mucus CSF Tube Number CSF Appearance (b) CSF Glucose CSF Total Protein Rheumatoid Factor Prothrombin [id number] Mut Prothrombin Mut Interp 05/22/20 05/22/20 05/22/20 05:24 05:24 05:24 WBC RBC Hgb Hct MCV MCH MCHC RDW Plt Count MPV Immature Gran % (Auto) Neut % (Auto) Lymph % (Auto) Bates % (Auto) Eos % (Auto) Baso % (Auto) Lymph # (Auto) Bates # (Auto) Eos # (Auto) Baso # (Auto) Abs Immat Gran (auto) Absolute Neuts (auto) Absolute Nucleated RBC Nucleated RBC % (auto) Smear Tech's Comments PT 12.9 INR 1.1 APTT 31.8 D-Dimer [id number] LA PTT Screen LA Thrombin Time dRVV Screen dRVVT Confirm Interp dRVVT Mixing Study dRVVT Mix Interpret Hexagon Phase Neutraliz Lupus Anticoag Interp Protein C Antigen Protein C Activity Protein S Activity Total Protein S Ag Free Protein S Antigen Antithrombin III Ag Factor V Leiden Factor V Leiden Interp Sodium 142 Potassium 5.4 H Chloride 109 H Carbon Dioxide 23 Anion Gap 15 BUN 85 H* Creatinine 2.47 H Estim Creat Clear Calc 29.5 Estimated GFR 26 POC Glucose Random Glucose 236 H Lactic Acid Calcium 8.4 Phosphorus 5.3 H Magnesium 3.3 H Total Bilirubin 0.3 Direct Bilirubin 0.2 AST 36 ALT 53 H Alkaline Phosphatase 77 Ammonia B-Natriuretic Peptide 227 H Total Protein 8.1 H Albumin 3.0 L Procalcitonin Urine Color Urine Appearance Urine pH Ur Specific [place] Urine Protein Urine Glucose (UA) Urine Ketones Urine Blood Urine Nitrite Ur Leukocyte Esterase Urine RBC Urine WBC Ur Squamous Epith Cells Ur Renal Epithelial Cell Urine Bacteria Urine Mucus CSF Tube Number CSF Appearance (b) CSF Glucose CSF Total Protein Rheumatoid Factor Prothrombin [id number] Mut Prothrombin Mut Interp 05/22/20 05/22/20 05/22/20 05:24 12:00 12:18 WBC RBC Hgb Hct MCV MCH MCHC RDW Plt Count MPV Immature Gran % (Auto) Neut % (Auto) Lymph % (Auto) Bates % (Auto) Eos % (Auto) Baso % (Auto) Lymph # (Auto) Bates # (Auto) Eos # (Auto) Baso # (Auto) Abs Immat Gran (auto) Absolute Neuts (auto) Absolute Nucleated RBC Nucleated RBC % (auto) Smear Tech's Comments PT INR APTT D-Dimer LA PTT Screen Cancelled LA Thrombin Time Cancelled dRVV Screen Cancelled dRVVT Confirm Interp Cancelled dRVVT Mixing Study Cancelled dRVVT Mix Interpret Cancelled Hexagon Phase Neutraliz Cancelled Lupus Anticoag Interp Cancelled Protein C Antigen Cancelled Protein C Activity Cancelled Protein S Activity Cancelled Total Protein S Ag Cancelled Free Protein S Antigen Cancelled Antithrombin III Ag Cancelled Factor V Leiden Cancelled Factor V Leiden Interp Cancelled Sodium Potassium Chloride Carbon Dioxide Anion Gap BUN Creatinine Estim Creat Clear Calc Estimated GFR POC Glucose 137 H Random Glucose Lactic Acid Calcium Phosphorus Magnesium Total Bilirubin Direct Bilirubin AST ALT Alkaline Phosphatase Ammonia B-Natriuretic Peptide Total Protein Albumin Procalcitonin 0.11 Urine Color Urine Appearance Urine pH Ur Specific [place] Urine Protein Urine Glucose (UA) Urine Ketones Urine Blood Urine Nitrite Ur Leukocyte Esterase Urine RBC Urine WBC Ur Squamous Epith Cells Ur Renal Epithelial Cell Urine Bacteria Urine Mucus CSF Tube Number CSF Appearance (b) CSF Glucose CSF Total Protein Rheumatoid Factor Prothrombin [id number] Mut Cancelled Prothrombin Mut Interp Cancelled 05/22/20 05/22/20 05/22/20 12:18 12:18 Unknown WBC RBC Hgb Hct MCV MCH MCHC RDW Plt Count MPV Immature Gran % (Auto) Neut % (Auto) Lymph % (Auto) Bates % (Auto) Eos % (Auto) Baso % (Auto) Lymph # (Auto) Bates # (Auto) Eos # (Auto) Baso # (Auto) Abs Immat Gran (auto) Absolute Neuts (auto) Absolute Nucleated RBC Nucleated RBC % (auto) Smear Tech's Comments PT 12.9 INR 1.1 APTT 30.8 D-Dimer LA PTT Screen LA Thrombin Time dRVV Screen dRVVT Confirm Interp dRVVT Mixing Study dRVVT Mix Interpret Hexagon Phase Neutraliz Lupus Anticoag Interp Protein C Antigen Protein C Activity Protein S Activity Total Protein S Ag Free Protein S Antigen Antithrombin III Ag Factor V Leiden Factor V Leiden Interp Sodium Potassium Chloride Carbon Dioxide Anion Gap BUN Creatinine Estim Creat Clear Calc Estimated GFR POC Glucose Random Glucose Lactic Acid Calcium Phosphorus Magnesium Total Bilirubin Direct Bilirubin AST ALT Alkaline Phosphatase Ammonia B-Natriuretic Peptide Total Protein Albumin Procalcitonin Urine Color YELLOW Urine Appearance CLEAR Urine pH 6.0 Ur Specific [place] 1.020 Urine Protein NEG Urine Glucose (UA) NEG Urine Ketones NEG Urine Blood NEG Urine Nitrite NEG Ur Leukocyte Esterase NEG Urine RBC 1-4 Urine WBC 0-2 Ur Squamous Epith Cells TRACE Ur Renal Epithelial Cell TRACE Urine Bacteria NONE Urine Mucus 1+ CSF Tube Number CSF Appearance (b) CSF Glucose CSF Total Protein Rheumatoid Factor < 15.0 Prothrombin [id number] Mut Prothrombin Mut Interp 05/22/20 Unknown WBC RBC Hgb Hct MCV MCH MCHC RDW Plt Count MPV Immature Gran % (Auto) Neut % (Auto) Lymph % (Auto) Bates % (Auto) Eos % (Auto) Baso % (Auto) Lymph # (Auto) Bates # (Auto) Eos # (Auto) Baso # (Auto) Abs Immat Gran (auto) Absolute Neuts (auto) Absolute Nucleated RBC Nucleated RBC % (auto) Smear Tech's Comments PT INR APTT D-Dimer LA PTT Screen LA Thrombin Time dRVV Screen dRVVT Confirm Interp dRVVT Mixing Study dRVVT Mix Interpret Hexagon Phase Neutraliz Lupus Anticoag Interp Protein C Antigen Protein C Activity Protein S Activity Total Protein S Ag Free Protein S Antigen Antithrombin III Ag Factor V Leiden Factor V Leiden Interp Sodium Potassium Chloride Carbon Dioxide Anion Gap BUN Creatinine Estim Creat Clear Calc Estimated GFR POC Glucose Random Glucose Lactic Acid Calcium Phosphorus Magnesium Total Bilirubin Direct Bilirubin AST ALT Alkaline Phosphatase Ammonia B-Natriuretic Peptide Total Protein Albumin Procalcitonin Urine Color Urine Appearance Urine pH Ur Specific [place] Urine Protein Urine Glucose (UA) Urine Ketones Urine Blood Urine Nitrite Ur Leukocyte Esterase Urine RBC Urine WBC Ur Squamous Epith Cells Ur Renal Epithelial Cell Urine Bacteria Urine Mucus CSF Tube Number 1 CSF Appearance (b) Bloody CSF Glucose 136 CSF Total Protein 477.4 H Rheumatoid Factor Prothrombin [id number] Mut Prothrombin Mut Interp Microbiology Microbiology Results: Microbiology 05/21/20 22:50 Sputum - Suctioned Gram Stain - Final 05/21/20 22:50 Sputum - Suctioned Sputum Culture - Preliminary No growth to date. 05/21/20 21:00 Sacrum Gram Stain - Final 05/21/20 21:00 Sacrum Routine Culture - Preliminary Culture in progress. 05/16/20 12:30 Cerebrospinal Fluid Gram Stain - Final 05/16/20 12:30 Cerebrospinal Fluid CSF Examination - Final 05/16/20 12:30 Cerebrospinal Fluid Fluid Description - Final 05/16/20 12:30 Cerebrospinal Fluid CSF Culture - Final No growth after 3 days. 05/06/20 14:27 Blood - Venous Blood Culture - Final No growth after 5 days. 05/06/20 14:24 Blood - Venous Blood Culture - Final No growth after 5 days. Progress Note: A&P Assessment and plan (1) Pressure injury of coccygeal region, unstageable: Status: Acute (2) Myelopathy, spondylogenic, cervical: Status: Acute (3) Obesity: Status: Acute (4) Diastolic heart failure: Status: Acute (5) Pulmonary aspiration: Status: Acute (6) Acute renal failure: Problem details: 74 year old man with history of CHF and hypothyroidism admitted with acute encephalopathy related to dehydration and cellulitis and noted renal dysfunc and hyperNa Now decomp resp status req intubation 1. Non-Oliguric JETT: SCr remains stable at 3.0 range; sepsis assoc ATN 2. CKD 3b: bsl SCr 2.0; etiol unclear but its been longstanding; UA unremarkable; suspecty age related vs HTN nephrosclerosis 3.. HyperNa: resolved 4.. cellulitis 5, Rsp failure: on vent 6. Sepsis 7. Neuro: w/u as noted and now on IVGG 8. TBFOL: vol status looks ok w chronic venous stasis Disproportionate increase in BUN due to steroids REC: No indication for dialysis yet but will cont to track closely; cont to track UOP and renal func; avoid NToxins; optimize hemodyanamics/resp as per ICU team; cont diuretic as need prn will follow with team Status: Acute (7) Acute respiratory failure with hypercapnia: Status: Acute (8) Anemia: Status: Acute (9) Encephalopathy: Problem details: There are no infectious causes evident at this time His ESR checked on request and is over 100 There is concern over giant cell arteritis/vasculitis Status: Acute (10) Hypoxemia requiring supplemental oxygen: Status: Acute (11) Acute metabolic encephalopathy: Status: Acute (12) Aspiration pneumonia: Status: Acute (13) Cellulitis: Problem details: resolved Status: Acute (14) CKD (chronic kidney disease), stage III: Status: Acute (15) Hypernatremia: Status: Acute Assessment and Plan: At this point sed rate of 115 implies a potential vasculitic process and maybe that is what the issue with the lower extremity was in the 1st place and therefore his encephalopathy could be on the basis of vasculitis but were unable to obtain ache clean CSF sample to prove that diagnosis and 1 empiric dose thus far of Decadron was given and serologies are pending and again the question is raised at this point as to whether not we should do without contrast because of his renal function an MRI and MRA including of the the neck to look at the vertebral basilar circulation Time Spent With Patient Time: Total time spent is greater than 50% in coordination of care (as documented) at patient's floor/unit and/or counseling patient: Total time spent with greater than 50% in coordination of care (as documented) at patient's floor/unit and/or counseling patient:: 45
--- NOTE | 2020-05-22 16:53 | P.PNNP_ITS ---
Subjective Subjective Date of Service: 05/22/20 Interval history: Events noted. All recent data reviewed. D/W ICU Attending Physical Exam Vital Signs: Vital Signs: Last Vital Signs Temp 96.1 F L 05/22/20 16:00 Pulse 53 05/22/20 16:00 Resp 18 05/22/20 16:00 BP 94/49 L 05/22/20 16:00 Pulse Ox 95 05/22/20 16:00 Body Mass Index 40.3 Const: General: No acute distress Neck: Neck: Yes supple Resp: Auscultation: diminished lung sounds Cardio: Rate: regular rate GI: Palpation (GI): Soft to palpation Extrem: General: Yes edema Objective Data Labs CBC & Chem 7: 05/22/20 05:24 05/22/20 05:24 Labs: Laboratory Results - last 24 hr 05/21/20 05/22/20 05/22/20 18:18 00:14 00:14 WBC 8.6 RBC 2.77 L Hgb 8.1 L Hct 26.3 L MCV 94.9 MCH 29.2 MCHC 30.8 L RDW 15.6 Plt Count 454 H MPV 10.3 Immature Gran % (Auto) 0.6 H Neut % (Auto) 89.7 H Lymph % (Auto) 4.6 L [place] % (Auto) 3.9 Eos % (Auto) 0.6 Baso % (Auto) 0.6 Lymph # (Auto) 0.4 L [place] # (Auto) 0.3 Eos # (Auto) 0.1 Baso # (Auto) 0.1 Abs Immat Gran (auto) 0.05 H Absolute Neuts (auto) 7.7 Absolute Nucleated RBC 0.000 Nucleated RBC % (auto) 0.0 Smear Tech's Comments VERIFIED PT INR APTT D-Dimer LA PTT Screen LA Thrombin Time dRVV Screen dRVVT Confirm Interp dRVVT Mixing Study dRVVT Mix Interpret Hexagon Phase Neutraliz Lupus Anticoag Interp Protein C Antigen Protein C Activity Protein S Activity Total Protein S Ag Free Protein S Antigen Antithrombin III Ag Factor V Leiden Factor V Leiden Interp Sodium Potassium Chloride Carbon Dioxide Anion Gap BUN Creatinine Estim Creat Clear Calc Estimated GFR POC Glucose 143 H Random Glucose Lactic Acid 0.6 Calcium Phosphorus Magnesium Total Bilirubin Direct Bilirubin AST ALT Alkaline Phosphatase Ammonia B-Natriuretic Peptide Total Protein Albumin Procalcitonin Urine Color Urine Appearance Urine pH Ur Specific [place] Urine Protein Urine Glucose (UA) Urine Ketones Urine Blood Urine Nitrite Ur Leukocyte Esterase Urine RBC Urine WBC Ur Squamous Epith Cells Ur Renal Epithelial Cell Urine Bacteria Urine Mucus CSF Tube Number CSF Appearance (b) CSF Glucose CSF Total Protein Rheumatoid Factor Prothrombin [id number] Mut Prothrombin Mut Interp 05/22/20 05/22/20 05/22/20 00:14 00:25 01:02 WBC RBC Hgb Hct MCV MCH MCHC RDW Plt Count MPV Immature Gran % (Auto) Neut % (Auto) Lymph % (Auto) [place] % (Auto) Eos % (Auto) Baso % (Auto) Lymph # (Auto) [place] # (Auto) Eos # (Auto) Baso # (Auto) Abs Immat Gran (auto) Absolute Neuts (auto) Absolute Nucleated RBC Nucleated RBC % (auto) Smear Tech's Comments PT 12.9 INR 1.1 APTT 32.6 D D-Dimer LA PTT Screen LA Thrombin Time dRVV Screen dRVVT Confirm Interp dRVVT Mixing Study dRVVT Mix Interpret Hexagon Phase Neutraliz Lupus Anticoag Interp Protein C Antigen Protein C Activity Protein S Activity Total Protein S Ag Free Protein S Antigen Antithrombin III Ag Factor V Leiden Factor V Leiden Interp Sodium 143 Potassium 4.9 Chloride 110 H Carbon Dioxide 24 Anion Gap 14 BUN 80 H* Creatinine 2.48 H Estim Creat Clear Calc 29.1 Estimated GFR 26 POC Glucose 178 H Random Glucose 182 H Lactic Acid Calcium 8.0 L Phosphorus Magnesium Total Bilirubin 0.6 Direct Bilirubin AST ALT Alkaline Phosphatase Ammonia B-Natriuretic Peptide Total Protein Albumin Procalcitonin Urine Color Urine Appearance Urine pH Ur Specific [place] Urine Protein Urine Glucose (UA) Urine Ketones Urine Blood Urine Nitrite Ur Leukocyte Esterase Urine RBC Urine WBC Ur Squamous Epith Cells Ur Renal Epithelial Cell Urine Bacteria Urine Mucus CSF Tube Number CSF Appearance (b) CSF Glucose CSF Total Protein Rheumatoid Factor Prothrombin [id number] Mut Prothrombin Mut Interp 05/22/20 05/22/20 05/22/20 05:02 05:24 05:24 WBC 9.5 RBC 3.07 L Hgb 8.9 L Hct 29.0 L MCV 94.5 MCH 29.0 MCHC 30.7 L RDW 15.5 Plt Count 489 H MPV 10.4 Immature Gran % (Auto) 0.8 H Neut % (Auto) 94.5 H Lymph % (Auto) 3.7 L [place] % (Auto) 0.8 L Eos % (Auto) 0.0 Baso % (Auto) 0.2 Lymph # (Auto) 0.4 L [place] # (Auto) 0.1 Eos # (Auto) 0.0 Baso # (Auto) 0.0 Abs Immat Gran (auto) 0.08 H Absolute Neuts (auto) 9.0 H Absolute Nucleated RBC 0.000 Nucleated RBC % (auto) 0.0 Smear Tech's Comments PT INR APTT D-Dimer LA PTT Screen LA Thrombin Time dRVV Screen dRVVT Confirm Interp dRVVT Mixing Study dRVVT Mix Interpret Hexagon Phase Neutraliz Lupus Anticoag Interp Protein C Antigen Protein C Activity Protein S Activity Total Protein S Ag Free Protein S Antigen Antithrombin III Ag Factor V Leiden Factor V Leiden Interp Sodium Potassium Chloride Carbon Dioxide Anion Gap BUN Creatinine Estim Creat Clear Calc Estimated GFR POC Glucose 200 H Random Glucose Lactic Acid Calcium Phosphorus Magnesium Total Bilirubin Direct Bilirubin AST ALT Alkaline Phosphatase Ammonia 51 B-Natriuretic Peptide Total Protein Albumin Procalcitonin Urine Color Urine Appearance Urine pH Ur Specific [place] Urine Protein Urine Glucose (UA) Urine Ketones Urine Blood Urine Nitrite Ur Leukocyte Esterase Urine RBC Urine WBC Ur Squamous Epith Cells Ur Renal Epithelial Cell Urine Bacteria Urine Mucus CSF Tube Number CSF Appearance (b) CSF Glucose CSF Total Protein Rheumatoid Factor Prothrombin [id number] Mut Prothrombin Mut Interp 05/22/20 05/22/20 05/22/20 05:24 05:24 05:24 WBC RBC Hgb Hct MCV MCH MCHC RDW Plt Count MPV Immature Gran % (Auto) Neut % (Auto) Lymph % (Auto) [place] % (Auto) Eos % (Auto) Baso % (Auto) Lymph # (Auto) [place] # (Auto) Eos # (Auto) Baso # (Auto) Abs Immat Gran (auto) Absolute Neuts (auto) Absolute Nucleated RBC Nucleated RBC % (auto) Smear Tech's Comments PT 12.9 INR 1.1 APTT 31.8 D-Dimer 2393 LA PTT Screen LA Thrombin Time dRVV Screen dRVVT Confirm Interp dRVVT Mixing Study dRVVT Mix Interpret Hexagon Phase Neutraliz Lupus Anticoag Interp Protein C Antigen Protein C Activity Protein S Activity Total Protein S Ag Free Protein S Antigen Antithrombin III Ag Factor V Leiden Factor V Leiden Interp Sodium 142 Potassium 5.4 H Chloride 109 H Carbon Dioxide 23 Anion Gap 15 BUN 85 H* Creatinine 2.47 H Estim Creat Clear Calc 29.5 Estimated GFR 26 POC Glucose Random Glucose 236 H Lactic Acid Calcium 8.4 Phosphorus 5.3 H Magnesium 3.3 H Total Bilirubin 0.3 Direct Bilirubin 0.2 AST 36 ALT 53 H Alkaline Phosphatase 77 Ammonia B-Natriuretic Peptide 227 H Total Protein 8.1 H Albumin 3.0 L Procalcitonin Urine Color Urine Appearance Urine pH Ur Specific [place] Urine Protein Urine Glucose (UA) Urine Ketones Urine Blood Urine Nitrite Ur Leukocyte Esterase Urine RBC Urine WBC Ur Squamous Epith Cells Ur Renal Epithelial Cell Urine Bacteria Urine Mucus CSF Tube Number CSF Appearance (b) CSF Glucose CSF Total Protein Rheumatoid Factor Prothrombin [id number] Mut Prothrombin Mut Interp 05/22/20 05/22/20 05/22/20 05:24 12:00 12:18 WBC RBC Hgb Hct MCV MCH MCHC RDW Plt Count MPV Immature Gran % (Auto) Neut % (Auto) Lymph % (Auto) [place] % (Auto) Eos % (Auto) Baso % (Auto) Lymph # (Auto) [place] # (Auto) Eos # (Auto) Baso # (Auto) Abs Immat Gran (auto) Absolute Neuts (auto) Absolute Nucleated RBC Nucleated RBC % (auto) Smear Tech's Comments PT INR APTT D-Dimer LA PTT Screen Cancelled LA Thrombin Time Cancelled dRVV Screen Cancelled dRVVT Confirm Interp Cancelled dRVVT Mixing Study Cancelled dRVVT Mix Interpret Cancelled Hexagon Phase Neutraliz Cancelled Lupus Anticoag Interp Cancelled Protein C Antigen Cancelled Protein C Activity Cancelled Protein S Activity Cancelled Total Protein S Ag Cancelled Free Protein S Antigen Cancelled Antithrombin III Ag Cancelled Factor V Leiden Cancelled Factor V Leiden Interp Cancelled Sodium Potassium Chloride Carbon Dioxide Anion Gap BUN Creatinine Estim Creat Clear Calc Estimated GFR POC Glucose 137 H Random Glucose Lactic Acid Calcium Phosphorus Magnesium Total Bilirubin Direct Bilirubin AST ALT Alkaline Phosphatase Ammonia B-Natriuretic Peptide Total Protein Albumin Procalcitonin 0.11 Urine Color Urine Appearance Urine pH Ur Specific [place] Urine Protein Urine Glucose (UA) Urine Ketones Urine Blood Urine Nitrite Ur Leukocyte Esterase Urine RBC Urine WBC Ur Squamous Epith Cells Ur Renal Epithelial Cell Urine Bacteria Urine Mucus CSF Tube Number CSF Appearance (b) CSF Glucose CSF Total Protein Rheumatoid Factor Prothrombin [id number] Mut Cancelled Prothrombin Mut Interp Cancelled 05/22/20 05/22/20 05/22/20 12:18 12:18 Unknown WBC RBC Hgb Hct MCV MCH MCHC RDW Plt Count MPV Immature Gran % (Auto) Neut % (Auto) Lymph % (Auto) [place] % (Auto) Eos % (Auto) Baso % (Auto) Lymph # (Auto) [place] # (Auto) Eos # (Auto) Baso # (Auto) Abs Immat Gran (auto) Absolute Neuts (auto) Absolute Nucleated RBC Nucleated RBC % (auto) Smear Tech's Comments PT 12.9 INR 1.1 APTT 30.8 D-Dimer LA PTT Screen LA Thrombin Time dRVV Screen dRVVT Confirm Interp dRVVT Mixing Study dRVVT Mix Interpret Hexagon Phase Neutraliz Lupus Anticoag Interp Protein C Antigen Protein C Activity Protein S Activity Total Protein S Ag Free Protein S Antigen Antithrombin III Ag Factor V Leiden Factor V Leiden Interp Sodium Potassium Chloride Carbon Dioxide Anion Gap BUN Creatinine Estim Creat Clear Calc Estimated GFR POC Glucose Random Glucose Lactic Acid Calcium Phosphorus Magnesium Total Bilirubin Direct Bilirubin AST ALT Alkaline Phosphatase Ammonia B-Natriuretic Peptide Total Protein Albumin Procalcitonin Urine Color YELLOW Urine Appearance CLEAR Urine pH 6.0 Ur Specific [place] 1.020 Urine Protein NEG Urine Glucose (UA) NEG Urine Ketones NEG Urine Blood NEG Urine Nitrite NEG Ur Leukocyte Esterase NEG Urine RBC 1-4 Urine WBC 0-2 Ur Squamous Epith Cells TRACE Ur Renal Epithelial Cell TRACE Urine Bacteria NONE Urine Mucus 1+ CSF Tube Number CSF Appearance (b) CSF Glucose CSF Total Protein Rheumatoid Factor < 15.0 Prothrombin [id number] Mut Prothrombin Mut Interp 05/22/20 Unknown WBC RBC Hgb Hct MCV MCH MCHC RDW Plt Count MPV Immature Gran % (Auto) Neut % (Auto) Lymph % (Auto) [place] % (Auto) Eos % (Auto) Baso % (Auto) Lymph # (Auto) [place] # (Auto) Eos # (Auto) Baso # (Auto) Abs Immat Gran (auto) Absolute Neuts (auto) Absolute Nucleated RBC Nucleated RBC % (auto) Smear Tech's Comments PT INR APTT D-Dimer LA PTT Screen LA Thrombin Time dRVV Screen dRVVT Confirm Interp dRVVT Mixing Study dRVVT Mix Interpret Hexagon Phase Neutraliz Lupus Anticoag Interp Protein C Antigen Protein C Activity Protein S Activity Total Protein S Ag Free Protein S Antigen Antithrombin III Ag Factor V Leiden Factor V Leiden Interp Sodium Potassium Chloride Carbon Dioxide Anion Gap BUN Creatinine Estim Creat Clear Calc Estimated GFR POC Glucose Random Glucose Lactic Acid Calcium Phosphorus Magnesium Total Bilirubin Direct Bilirubin AST ALT Alkaline Phosphatase Ammonia B-Natriuretic Peptide Total Protein Albumin Procalcitonin Urine Color Urine Appearance Urine pH Ur Specific [place] Urine Protein Urine Glucose (UA) Urine Ketones Urine Blood Urine Nitrite Ur Leukocyte Esterase Urine RBC Urine WBC Ur Squamous Epith Cells Ur Renal Epithelial Cell Urine Bacteria Urine Mucus CSF Tube Number 1 CSF Appearance (b) Bloody CSF Glucose 136 CSF Total Protein 477.4 H Rheumatoid Factor Prothrombin [id number] Mut Prothrombin Mut Interp Microbiology Microbiology Results: Microbiology 05/21/20 22:50 Sputum - Suctioned Gram Stain - Final 05/21/20 22:50 Sputum - Suctioned Sputum Culture - Preliminary No growth to date. 05/21/20 21:00 Sacrum Gram Stain - Final 05/21/20 21:00 Sacrum Routine Culture - Preliminary Culture in progress. 05/16/20 12:30 Cerebrospinal Fluid Gram Stain - Final 05/16/20 12:30 Cerebrospinal Fluid CSF Examination - Final 05/16/20 12:30 Cerebrospinal Fluid Fluid Description - Final 05/16/20 12:30 Cerebrospinal Fluid CSF Culture - Final No growth after 3 days. 05/06/20 14:27 Blood - Venous Blood Culture - Final No growth after 5 days. 05/06/20 14:24 Blood - Venous Blood Culture - Final No growth after 5 days. Assessment & Plan Assessment and plan (1) Acute renal failure: Problem details: Non oliguric JETT due to ATN Has baseline CKD 3 Renal functions fairly stable No indication for renal replacement Shall continue current supportive care Labs AM. Shall follow closely Status: Acute Time Spent With Patient Time: Total time spent is greater than 50% in coordination of care (as documented) at patient's floor/unit and/or counseling patient:
[2020-05-22 18:06] LABS: Glucose, Whole Blood 181 mg/dL (60-115)
--- NOTE | 2020-05-22 18:25 | PC.NURSE ---
PT PLACED ON SIZEWISE MATTRESS BED.
[2020-05-22] MEDS: HYDROmorphone HCl 0.5 MG/0.5 ML SYRINGE IVPUSH (19:38)
[2020-05-22 23:57] LABS: Glucose, Whole Blood 190 mg/dL (60-115)
[2020-05-23] VITALS (37 sets, daily range): BP systolic 107–163; BP diastolic 37–78; PULSE 34–110; RESP 15–28; TEMP 35.7–37.3; O2SAT 89–98; BMI 45.8
[2020-05-23] MEDS: Acetylcysteine 10 % 400 MG/4 ML VIAL INHALE ×6 (01:02→19:43)
[2020-05-23] MEDS: Albuterol/Iprat 2.5/0.5MG 3 ML AMPUL.NEB INHALE ×6 (01:15→19:43)
[2020-05-23] MEDS: Insulin Lispro 100 UNIT/ML 3 ML VIAL SUBCUT ×3 (01:19→17:54)
[2020-05-23 05:51] LABS: VBG Base Excess 0.2 mmol/L; VBG HCO3 23 mmol/L (22-26); VBG pCO2 35 mmHg; VBG pO2 83 mmHg
[2020-05-23 05:55] LABS: Basophils Percent Auto 0.1 % (0-2); Hematocrit 25.9 % (42-52); Hemoglobin 8.2 g/dl (14.0-18.0); Imm Gran Abs Auto 0.06 X10*3/uL (0.00-0.03); Imm Gran Pct Auto 0.6 % (0.0-0.4); Lymphocytes Absolute Auto 0.6 X10*3/uL (1.2-4.9); Lymphocytes Percent Auto 5.9 % (20-40); MANUAL DIFF FLAG SCAN; Mean Corpuscular HGB Conc 31.7 g/dl (31.0-36.0); Mean Corpuscular Volume 91.5 fL (80-98); Mean Platelet Volume 10.3 fL (9.4-12.4); Monocytes Absolute Auto 0.6 X10*3/uL (0.1-1.2); Monocytes Percent Auto 5.5 % (2-11); Neutrophils Absolute Auto 9.1 X10*3/uL (2.0-8.3); Neutrophils Percent Auto 87.9 % (45-73); Platelet Count 445 X10*3/uL (160-400); Red Blood Count 2.83 X10*6/uL (4.60-5.80); Red Cell Distribution Width 15.3 % (11.0-16.0); SCAN SMEAR FLAG 1; White Blood Count 10.4 X10*3/uL (4.8-10.8)
[2020-05-23 06:21] LABS: D Dimer 2599 NG/ML
[2020-05-23 06:25] LABS: Glucose, Whole Blood 133 mg/dL (60-115)
[2020-05-23 06:26] LABS: INTERNATIONAL NORM RATIO 1.1 (0.9-1.1); Partial Thromboplastin Time 28.6 SEC (24.1-38.0)
[2020-05-23 06:32] LABS: SLIDE REVIEW VERIFIED
[2020-05-23 06:33] LABS: Venous Blood Gas Refer to POC result
[2020-05-23 06:38] LABS: Alanine Aminotransferase 40 U/L (0-40); Alkaline Phosphatase 71 U/L (39-117); Anion Gap 17 (12-20); Aspartate Amino Transferase 20 U/L (5-37); Bilirubin Direct 0.2 mg/dL (0.0-0.5); Bilirubin Total 0.2 mg/dL (0.0-1.0); Blood Urea Nitrogen 100 mg/dL (9-16); Calcium 8.3 mg/dL (8.4-10.2); Carbon Dioxide 22 mmol/L (22-29); Chloride 108 mmol/L (96-108); Creatinine Clr Calc Pharmacy 31.9; Estimated Glomerular Filt Rate 26; Glucose Random 159 mg/dL (60-115); Magnesium 3.3 mg/dL (1.6-2.6); Phosphorus 4.6 mg/dL (2.7-4.5); Potassium 4.9 mmol/L (3.3-5.1); Sodium 142 mmol/L (135-145); Total Protein 7.8 g/dL (6.5-8.0)
[2020-05-23 06:40] LABS: B Type Natriuretic Peptide 195 pg/mL (<100)
[2020-05-23] MEDS: 0.9 % Sodium Chloride Flush 3 ML SYRINGE IVFLUSH ×2 (07:21→15:52)
[2020-05-23] MEDS: HYDROmorphone HCl 0.5 MG/0.5 ML SYRINGE IVPUSH (07:21)
[2020-05-23] MEDS: Nystatin Powder 15 GM BOTTLE 1 APPL TOPICAL ×2 (08:16→15:51)
[2020-05-23] MEDS: Betamethasone Dip Aug 0.05% Cr 15 GM TUBE 1 APPL TOPICAL ×2 (08:16→21:21)
[2020-05-23] MEDS: Famotidine/PF 20 MG/2 ML VIAL IVPUSH (08:19)
[2020-05-23] MEDS: Chlorhexidine Gluc Oral Rinse 15 ML MOUTHWASH BUCCAL ×3 (08:19→21:22)
[2020-05-23] MEDS: Levothyroxine Sodium 125 MCG TABLET PO (08:19)
[2020-05-23] MEDS: Thiamine HCL 100 MG TABLET PO (08:19)
[2020-05-23 08:23] LABS: VBG pH 7.43 (7.32-7.43)
[2020-05-23 08:38] LABS: Syphilis Screen Nonreactive (Nonreactive)
--- NOTE | 2020-05-23 08:51 | P.CONGS_ITS ---
History of Present Illness Consult details Consult date: 05/23/20 Narrative: Asked to see Mr. Lozano for evaluation of a sacral decubitus ulcer. He is a 74-year-old male patient with a history of CHF, hypothyroidism, and bilateral lower extremity skin wounds from chronic venous stasis presenting to the emergency department on 05/06/2020 due to increasing confusion. Patient was admitted to the hospitalist service and is now in the ICU, intubated and sedated, on the vent. Surgical consultation is requested for management of a sacral decubitus ulcer which may require debridement. Wounds are currently being packed with iodoform gauze. Review of Systems Review of Systems: Yes unobtainable due to endotracheal tube PMFSH Past Medical History Medical History CHF (congestive heart failure) Diabetes HTN (hypertension) Hypothyroidism Functional capacity: uses cane/walker Family History Family history: reviewed and not pertinent Social History Social History Household Members: Spouse Housing: House Alcohol intake: unknown Smoking Status: Unknown if ever smoked service: No Current occupational status: retired [employer] Allergies Allergy/AdvReac Type Severity Reaction Status Date / Time No Known Allergies Allergy Unknown NONE Unverified 11/17/19 14:44 Active Medications: Current Medications Generic Name Dose Route Start Last Admin Trade Name Giovanyq PRN Reason Stop Dose Admin Acetylcysteine 400 mg 05/22/20 00:15 05/23/20 07:47 Acetylcysteine 10 % 400 Mg/4 Ml Vial INHALE 400 mg RQ4H COSME Administration Albuterol/Ipratropium 3 ml 05/23/20 01:00 05/23/20 07:46 Albuterol/Iprat 2.5/0.5mg 3 Ml Ampul.Neb INHALE 3 ml Q4H COSME Administration Betamethasone Dipropion Augmented 1 appl 05/07/20 21:00 05/23/20 08:16 Betamethasone Dip Aug 0.05% Cr 15 Gm Tube TOPICAL 1 appl BID COSME Administration Protocol Chlorhexidine Gluconate 15 ml 05/11/20 15:00 05/23/20 08:19 Chlorhexidine Gluc Oral Rinse 15 Ml Mouthwash BUCCAL 15 ml TID COSME Administration Famotidine 20 mg 05/12/20 09:00 05/23/20 08:19 Famotidine/Pf 20 Mg/2 Ml Vial IVPUSH 20 mg DAILY [facility] Administration Heparin Sodium (Porcine) 5,000 unit 05/14/20 23:30 05/21/20 16:44 Heparin Sodium,Porcine 5,000 Unit/Ml Vial SUBCUT Not Given Q8H [facility] Hydromorphone HCl 0.5 mg 05/20/20 16:46 05/23/20 07:21 Hydromorphone Hcl 0.5 Mg/0.5 Ml Syringe IVPUSH 0.5 mg Q30M PRN Administration DISCOMFORT/RESPIRATORY DISTRESS Insulin Human Lispro 0 unit 05/14/20 18:00 05/23/20 06:26 Insulin Lispro 100 Unit/Ml 3 Ml Vial SUBCUT Not Given 0000,0600,1200,1800 [facility] Protocol Levothyroxine Sodium 125 mcg 05/07/20 09:00 05/23/20 08:19 Levothyroxine Sodium 125 Mcg Tablet PO 125 mcg DAILY [facility] Administration Nystatin 1 appl 05/07/20 09:00 05/23/20 08:16 Nystatin Powder 15 Gm Bottle TOPICAL 1 appl TID [facility] Administration Protocol Sodium Chloride 3 ml 05/07/20 00:00 05/23/20 07:21 0.9 % Sodium Chloride Flush 3 Ml Syringe IVFLUSH 3 ml QSHIFT [facility] Administration Thiamine HCl 100 mg 05/22/20 09:00 05/23/20 08:19 Thiamine Hcl 100 Mg Tablet PO 100 mg DAILY [facility] Administration Home Medications Medication Instructions Recorded Confirmed Last Taken Type furosemide 1 tab PO TID 05/06/20 05/06/20 Unknown History levothyroxine 1 tab PO DAILY 05/06/20 05/06/20 Unknown History metoprolol tartrate 1 tab PO DAILY 05/06/20 05/06/20 Unknown History spironolactone 1 tab PO BID 05/06/20 05/06/20 Unknown History tamsulosin 1 cap PO DAILY 05/06/20 05/06/20 Unknown History Physical Exam Vital Signs: Vital Signs: Last Vital Signs Temp 98.8 F 05/23/20 07:57 Pulse 94 05/23/20 07:57 Resp 19 05/23/20 07:57 BP 140/65 H 05/23/20 07:57 Pulse Ox 93 05/23/20 07:57 Body Mass Index 45.8 Const: Other: Sedated on the ventilator Resp: Other: On the vent Back/Spine/Pelvis: Other: Low decubitus ulcer noted just above the coccyx measuring approximately 2 cm round and at least 2 cm deep with necrotic subcutaneous tissue at the wound base. No evidence of granulation tissue noted at the wound base. Thin discharge is noted from the wound but no underlying abscess could be appreciated. Back/spine/pelvis image: 1. Site of decubitus ulcer Skin: Other: Venous stasis changes bilateral lower extremities. Changes appear chronic Extrem: Other: Bilateral venous stasis changes Results Labs Result diagrams: 05/23/20 05:41 05/23/20 05:41 Labs: Abnormal lab results 05/22/20 05/22/20 05/22/20 Range/Units 12:00 17:56 23:54 RBC (4.60-5.80) X10*6/uL Hgb (14.0-18.0) g/dl Hct (42-52) % Plt Count (160-400) X10*3/uL Immature Gran % (Auto) (0.0-0.4) % Neut % (Auto) (45-73) % Lymph % (Auto) (20-40) % Lymph # (Auto) (1.2-4.9) X10*3/uL Abs Immat Gran (auto) (0.00-0.03) X10*3/uL Absolute Neuts (auto) (2.0-8.3) X10*3/uL BUN (9-16) mg/dL Creatinine (0.5-1.4) mg/dL POC Glucose 137 H 181 H 190 H (60-115) mg/dL Random Glucose (60-115) mg/dL Calcium (8.4-10.2) mg/dL Phosphorus (2.7-4.5) mg/dL Magnesium (1.6-2.6) mg/dL B-Natriuretic Peptide (<100) pg/mL Albumin (3.5-5.0) g/dL CSF Total Protein (15-45) mg/dL 05/22/20 05/23/20 05/23/20 Range/Units Unknown 05:41 05:41 RBC 2.83 L (4.60-5.80) X10*6/uL Hgb 8.2 L (14.0-18.0) g/dl Hct 25.9 L (42-52) % Plt Count 445 H (160-400) X10*3/uL Immature Gran % (Auto) 0.6 H (0.0-0.4) % Neut % (Auto) 87.9 H (45-73) % Lymph % (Auto) 5.9 L (20-40) % Lymph # (Auto) 0.6 L (1.2-4.9) X10*3/uL Abs Immat Gran (auto) 0.06 H (0.00-0.03) X10*3/uL Absolute Neuts (auto) 9.1 H (2.0-8.3) X10*3/uL BUN 100 H* (9-16) mg/dL Creatinine 2.46 H (0.5-1.4) mg/dL POC Glucose (60-115) mg/dL Random Glucose 159 H (60-115) mg/dL Calcium 8.3 L (8.4-10.2) mg/dL Phosphorus 4.6 H (2.7-4.5) mg/dL Magnesium 3.3 H (1.6-2.6) mg/dL B-Natriuretic Peptide (<100) pg/mL Albumin 3.0 L (3.5-5.0) g/dL CSF Total Protein 477.4 H (15-45) mg/dL 05/23/20 05/23/20 Range/Units 05:41 06:21 RBC (4.60-5.80) X10*6/uL Hgb (14.0-18.0) g/dl Hct (42-52) % Plt Count (160-400) X10*3/uL Immature Gran % (Auto) (0.0-0.4) % Neut % (Auto) (45-73) % Lymph % (Auto) (20-40) % Lymph # (Auto) (1.2-4.9) X10*3/uL Abs Immat Gran (auto) (0.00-0.03) X10*3/uL Absolute Neuts (auto) (2.0-8.3) X10*3/uL BUN (9-16) mg/dL Creatinine (0.5-1.4) mg/dL POC Glucose 133 H (60-115) mg/dL Random Glucose (60-115) mg/dL Calcium (8.4-10.2) mg/dL Phosphorus (2.7-4.5) mg/dL Magnesium (1.6-2.6) mg/dL B-Natriuretic Peptide 195 H (<100) pg/mL Albumin (3.5-5.0) g/dL CSF Total Protein (15-45) mg/dL Short CBC 05/23/20 Range/Units 05:41 WBC 10.4 (4.8-10.8) X10*3/uL Hgb 8.2 L (14.0-18.0) g/dl Hct 25.9 L (42-52) % Plt Count 445 H (160-400) X10*3/uL BMP 05/23/20 05:41 Sodium 142 Potassium 4.9 Chloride 108 Carbon Dioxide 22 BUN 100 H* Creatinine 2.46 H Calcium 8.3 L Liver Function 05/23/20 Range/Units 05:41 Total Bilirubin 0.2 (0.0-1.0) mg/dL Direct Bilirubin 0.2 (0.0-0.5) mg/dL AST 20 D (5-37) U/L ALT 40 (0-40) U/L Alkaline Phosphatase 71 (39-117) U/L Albumin 3.0 L (3.5-5.0) g/dL Urine 05/06/20 05/11/20 05/22/20 Range/Units 16:11 08:00 Unknown Urine Color YELLOW YELLOW YELLOW Urine Appearance CLEAR CLOUDY CLEAR Urine pH 5.0 5.5 6.0 (5.0-8.0) Ur Specific [place] 1.020 >= 1.030 H 1.020 (1.005-1.025) Urine Protein NEG 2+ H NEG (NEG-TRACE) MG/DL Urine Glucose (UA) NEG NEG NEG (NEG) MG/DL All other labs normal. Assessment and Plan (1) Pressure injury of coccygeal region, unstageable: Status: Acute 74-year-old male patient with multiple medical problems and mental status changes currently admitted to the ICU, intubated and sedated, found to have a sacral decubitus ulcer with necrotic tissue which will require debridement. I will return later today to perform a debridement down to viable tissue.
[2020-05-23] MEDS: LORazepam 2 MG/ML VIAL IVPUSH (10:29)
--- NOTE | 2020-05-23 11:28 | MHC.CLN ---
F/U PT RECEIVING TF FORMULA GLUCERNA AT MAX GOAL RATE 60CC/HR WITH 30ML PROSOURCE BID AND 240CC FREE WATER Q 8 HRS PROVIDES 1560KCALS (25KCALS/KG BASED ON IBW), 90G PROTEIN (1.45G/KG) FOR WOUNDS, 1948CC FREE WATER FROM FORMULA AND FLUSHES (31CC/KG BASED ON IBW) MONITOR TOLERANCE, RESIDUALS AND LYTES
[2020-05-23 11:55] LABS: Glucose, Whole Blood 151 mg/dL (60-115)
--- NOTE | 2020-05-23 12:27 | PM.PNNEP ---
Subjective Subjective Date of Service: 05/23/20 Interval history: Events noted. All recent data reviewed. D/W ICU Attending Physical Exam Vital Signs: Vital Signs: Last Vital Signs Temp 96.6 F L 05/23/20 12:00 Pulse 100 05/23/20 12:00 Resp 19 05/23/20 12:00 BP 114/37 L 05/23/20 12:00 Pulse Ox 89 L 05/23/20 12:00 Body Mass Index 45.8 Const: General: No acute distress Neck: Neck: Yes supple Resp: Auscultation: diminished lung sounds Cardio: Heart sounds: no rubs GI: Palpation (GI): Soft to palpation Extrem: Other: Edema Objective Data Labs CBC & Chem 7: 05/23/20 05:41 05/23/20 05:41 Labs: Laboratory Results - last 24 hr 05/22/20 05/22/20 05/22/20 12:18 12:18 12:18 WBC RBC Hgb Hct MCV MCH MCHC RDW Plt Count MPV Immature Gran % (Auto) Neut % (Auto) Lymph % (Auto) [place] % (Auto) Eos % (Auto) Baso % (Auto) Lymph # (Auto) [place] # (Auto) Eos # (Auto) Baso # (Auto) Abs Immat Gran (auto) Absolute Neuts (auto) Absolute Nucleated RBC Nucleated RBC % (auto) Smear Tech's Comments PT 12.9 INR 1.1 APTT 30.8 D-Dimer LA PTT Screen Cancelled LA Thrombin Time Cancelled dRVV Screen Cancelled dRVVT Confirm Interp Cancelled dRVVT Mixing Study Cancelled dRVVT Mix Interpret Cancelled Hexagon Phase Neutraliz Cancelled Lupus Anticoag Interp Cancelled Protein C Antigen Cancelled Protein C Activity Cancelled Protein S Activity Cancelled Total Protein S Ag Cancelled Free Protein S Antigen Cancelled Antithrombin III Ag Cancelled Factor V Leiden Cancelled Factor V Leiden Interp Cancelled VBG pH VBG pCO2 VBG pO2 VBG HCO3 VBG O2 Saturation VBG Base Excess Sodium Potassium Chloride Carbon Dioxide Anion Gap BUN Creatinine Estim Creat Clear Calc Estimated GFR POC Glucose Random Glucose Calcium Phosphorus Magnesium Total Bilirubin Direct Bilirubin AST ALT Alkaline Phosphatase B-Natriuretic Peptide Total Protein Albumin CSF Tube Number CSF Appearance (b) CSF Glucose CSF Total Protein Cryoglobulin Cryoglobulin Cryocrit Rheumatoid Factor < 15.0 T.pallidum Ab (EIA) Prothrombin [id number] Mut Cancelled Prothrombin Mut Interp Cancelled 05/22/20 05/22/20 05/22/20 12:19 17:56 23:54 WBC RBC Hgb Hct MCV MCH MCHC RDW Plt Count MPV Immature Gran % (Auto) Neut % (Auto) Lymph % (Auto) [place] % (Auto) Eos % (Auto) Baso % (Auto) Lymph # (Auto) [place] # (Auto) Eos # (Auto) Baso # (Auto) Abs Immat Gran (auto) Absolute Neuts (auto) Absolute Nucleated RBC Nucleated RBC % (auto) Smear Tech's Comments PT INR APTT D-Dimer LA PTT Screen LA Thrombin Time dRVV Screen dRVVT Confirm Interp dRVVT Mixing Study dRVVT Mix Interpret Hexagon Phase Neutraliz Lupus Anticoag Interp Protein C Antigen Protein C Activity Protein S Activity Total Protein S Ag Free Protein S Antigen Antithrombin III Ag Factor V Leiden Factor V Leiden Interp VBG pH VBG pCO2 VBG pO2 VBG HCO3 VBG O2 Saturation VBG Base Excess Sodium Potassium Chloride Carbon Dioxide Anion Gap BUN Creatinine Estim Creat Clear Calc Estimated GFR POC Glucose 181 H 190 H Random Glucose Calcium Phosphorus Magnesium Total Bilirubin Direct Bilirubin AST ALT Alkaline Phosphatase B-Natriuretic Peptide Total Protein Albumin CSF Tube Number CSF Appearance (b) CSF Glucose CSF Total Protein Cryoglobulin Cancelled Cryoglobulin Cryocrit Cancelled Rheumatoid Factor T.pallidum Ab (EIA) Prothrombin [id number] Mut Prothrombin Mut Interp 05/22/20 05/23/20 05/23/20 Unknown 05:40 05:41 WBC 10.4 RBC 2.83 L Hgb 8.2 L Hct 25.9 L MCV 91.5 MCH 29.0 MCHC 31.7 RDW 15.3 Plt Count 445 H MPV 10.3 Immature Gran % (Auto) 0.6 H Neut % (Auto) 87.9 H Lymph % (Auto) 5.9 L [place] % (Auto) 5.5 Eos % (Auto) 0.0 Baso % (Auto) 0.1 Lymph # (Auto) 0.6 L [place] # (Auto) 0.6 Eos # (Auto) 0.0 Baso # (Auto) 0.0 Abs Immat Gran (auto) 0.06 H Absolute Neuts (auto) 9.1 H Absolute Nucleated RBC 0.000 Nucleated RBC % (auto) 0.0 Smear Tech's Comments VERIFIED PT INR APTT D-Dimer LA PTT Screen LA Thrombin Time dRVV Screen dRVVT Confirm Interp dRVVT Mixing Study dRVVT Mix Interpret Hexagon Phase Neutraliz Lupus Anticoag Interp Protein C Antigen Protein C Activity Protein S Activity Total Protein S Ag Free Protein S Antigen Antithrombin III Ag Factor V Leiden Factor V Leiden Interp VBG pH VBG pCO2 VBG pO2 VBG HCO3 VBG O2 Saturation VBG Base Excess Sodium Potassium Chloride Carbon Dioxide Anion Gap BUN Creatinine Estim Creat Clear Calc Estimated GFR POC Glucose Random Glucose Calcium Phosphorus Magnesium Total Bilirubin Direct Bilirubin AST ALT Alkaline Phosphatase B-Natriuretic Peptide Total Protein Albumin CSF Tube Number 1 CSF Appearance (b) Bloody CSF Glucose 136 CSF Total Protein 477.4 H Cryoglobulin Cryoglobulin Cryocrit Rheumatoid Factor T.pallidum Ab (EIA) Nonreactive Prothrombin [id number] Mut Prothrombin Mut Interp 05/23/20 05/23/20 05/23/20 05:41 05:41 05:41 WBC RBC Hgb Hct MCV MCH MCHC RDW Plt Count MPV Immature Gran % (Auto) Neut % (Auto) Lymph % (Auto) [place] % (Auto) Eos % (Auto) Baso % (Auto) Lymph # (Auto) [place] # (Auto) Eos # (Auto) Baso # (Auto) Abs Immat Gran (auto) Absolute Neuts (auto) Absolute Nucleated RBC Nucleated RBC % (auto) Smear Tech's Comments PT 13.0 INR 1.1 APTT 28.6 D-Dimer 2599 LA PTT Screen LA Thrombin Time dRVV Screen dRVVT Confirm Interp dRVVT Mixing Study dRVVT Mix Interpret Hexagon Phase Neutraliz Lupus Anticoag Interp Protein C Antigen Protein C Activity Protein S Activity Total Protein S Ag Free Protein S Antigen Antithrombin III Ag Factor V Leiden Factor V Leiden Interp VBG pH VBG pCO2 VBG pO2 VBG HCO3 VBG O2 Saturation VBG Base Excess Sodium 142 Potassium 4.9 Chloride 108 Carbon Dioxide 22 Anion Gap 17 BUN 100 H* Creatinine 2.46 H Estim Creat Clear Calc 31.9 Estimated GFR 26 POC Glucose Random Glucose 159 H Calcium 8.3 L Phosphorus 4.6 H Magnesium 3.3 H Total Bilirubin 0.2 Direct Bilirubin 0.2 AST 20 D ALT 40 Alkaline Phosphatase 71 B-Natriuretic Peptide 195 H Total Protein 7.8 Albumin 3.0 L CSF Tube Number CSF Appearance (b) CSF Glucose CSF Total Protein Cryoglobulin Cryoglobulin Cryocrit Rheumatoid Factor T.pallidum Ab (EIA) Prothrombin [id number] Mut Prothrombin Mut Interp 05/23/20 05/23/20 05/23/20 05:45 06:21 11:52 WBC RBC Hgb Hct MCV MCH MCHC RDW Plt Count MPV Immature Gran % (Auto) Neut % (Auto) Lymph % (Auto) [place] % (Auto) Eos % (Auto) Baso % (Auto) Lymph # (Auto) [place] # (Auto) Eos # (Auto) Baso # (Auto) Abs Immat Gran (auto) Absolute Neuts (auto) Absolute Nucleated RBC Nucleated RBC % (auto) Smear Tech's Comments PT INR APTT D-Dimer LA PTT Screen LA Thrombin Time dRVV Screen dRVVT Confirm Interp dRVVT Mixing Study dRVVT Mix Interpret Hexagon Phase Neutraliz Lupus Anticoag Interp Protein C Antigen Protein C Activity Protein S Activity Total Protein S Ag Free Protein S Antigen Antithrombin III Ag Factor V Leiden Factor V Leiden Interp VBG pH 7.43 VBG pCO2 35 VBG pO2 83 VBG HCO3 23 VBG O2 Saturation 94.0 VBG Base Excess 0.2 Sodium Potassium Chloride Carbon Dioxide Anion Gap BUN Creatinine Estim Creat Clear Calc Estimated GFR POC Glucose 133 H 151 H Random Glucose Calcium Phosphorus Magnesium Total Bilirubin Direct Bilirubin AST ALT Alkaline Phosphatase B-Natriuretic Peptide Total Protein Albumin CSF Tube Number CSF Appearance (b) CSF Glucose CSF Total Protein Cryoglobulin Cryoglobulin Cryocrit Rheumatoid Factor T.pallidum Ab (EIA) Prothrombin [id number] Mut Prothrombin Mut Interp Microbiology Microbiology Results: Microbiology 05/21/20 21:00 Sacrum Gram Stain - Final 05/21/20 21:00 Sacrum Routine Culture - Preliminary Gram negative debbie 05/21/20 22:50 Sputum - Suctioned Gram Stain - Final 05/21/20 22:50 Sputum - Suctioned Sputum Culture - Preliminary No growth to date. 05/22/20 00:27 Urine Catheterized - Fermin Catheter Urine Culture - Final No growth. 05/22/20 00:14 Blood - Venous Blood Culture - Preliminary No growth after 24 hours. 05/22/20 00:18 Blood - Venous Blood Culture - Preliminary No growth after 24 hours. 05/16/20 12:30 Cerebrospinal Fluid Gram Stain - Final 05/16/20 12:30 Cerebrospinal Fluid CSF Examination - Final 05/16/20 12:30 Cerebrospinal Fluid Fluid Description - Final 05/16/20 12:30 Cerebrospinal Fluid CSF Culture - Final No growth after 3 days. 05/06/20 14:27 Blood - Venous Blood Culture - Final No growth after 5 days. 05/06/20 14:24 Blood - Venous Blood Culture - Final No growth after 5 days. Assessment & Plan Assessment and plan (1) Acute renal failure: Problem details: Non oliguric JETT due to ATN Has baseline CKD 3 Renal functions fairly stable No indication for renal replacement Shall continue current supportive care Labs AM. Shall follow closely Status: Acute Time Spent With Patient Time: Total time spent is greater than 50% in coordination of care (as documented) at patient's floor/unit and/or counseling patient:
--- NOTE | 2020-05-23 13:25 | P.OP_ITS ---
Operative Note Operative Note Date of Service: 05/23/20 Narrative: Preoperative diagnosis: Sacral decubitus ulcer Postoperative diagnosis: Same Procedure: Debridement of sacral decubitus ulcer Surgeon: Mir Richards MD Gyroscope Technician: Anesthesia: None Indications for procedure: 74-year-old male patient, bed-bound with an area of necrosis at the lower coccyx skin with necrotic base of the wound. Operative findings: Approximately 3 cm round and 1.5 cm deep wound with necrot ic base extending into the subcutaneous tissue. Necrotic skin and subcutaneous tissue debrided down to viable, bleeding tissue. Wounds were then packed with dry gauze and foam dressing applied. Specimen: None Estimated blood loss: 5 mL Complications: None Procedure details: Procedure was performed in the patient's room. He was placed in a left lateral decubitus position. Consent was previously obtained from his . Skin was prepped with Betadine. Using a sharp scissors and forceps nonviable tissue was excised down to healthy bleeding tissue. A curette was used to clean the base of the wound again down to healthy bleeding tissue. Wounds were then packed with dry 4 x 4 gauze followed by a foam dressing. The patient tolerated the procedure well.
--- NOTE | 2020-05-23 15:06 | MHC.CM.PN ---
Per discussion with care team in rounds: no changes to pt: he remains vented and is followed by nephrology for HD management. Plan for today is an MRI to ensure no abnormalities. MD will have a family meeting on 05/25 to discuss goals of care. Original d/c plan was for a return to home with VNA services. CM to follow for changes as pt will need STR should he make medical progress.
--- NOTE | 2020-05-23 15:42 | PM.CCPN ---
Subjective Subjective Date of Service: 05/23/20 Interval History: 74-year-old hypertensive who had altered mental status at home and because of which family brought him to the emergency room and transfer to the floor where he was treated with clindamycin for cellulitis of his lower extremity but the redness was bilateral although the left side was worse and and several days later with further reduction of mental status and we was noted to have an acute hypercarbic respiratory failure intubated for a day extubated and then following which he again now became hypoxic with respiratory failure and reintubated and brought down to the ICU again and he has been persistently encephalopathic 2 days ago he was not the even so much is responding to pain now he is grimacing and eye opening to a degree and we have repeated his MRI and he does not have any significant structural disease on the MRI and has got good brain flow on nuclear medicine scanning but he has a sed rate of 115 with this persistent encephalopathy which began at home prior to admission and we could not obtain any additional CSF in 0 to look for protein banding so mom empirically treating with 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 Central nervous system toxicology was negative as was workup for and common infected its Physical Exam Vital Signs: Vital Signs: Last Vital Signs Temp 96.6 F L 05/23/20 15:00 Pulse 106 H 05/23/20 15:35 Resp 25 H 05/23/20 15:00 BP 142/62 H 05/23/20 15:00 Pulse Ox 91 L 05/23/20 15:00 Body Mass Index 45.8 Const: Other: Responsive and I do believe he actually open his eyes to command still does not move lower extremities but he spontaneously withdraws his upper extremities he is no longer sedated but he remains intubated CVP is between 10 and 12 but bedside echo shows normal LV and RV size and function with no primary valve or pericardial disease and the inferior vena cava is normal in size with normal inspiratory collapse Pressure control on the ventilator at 15/5 with 500 cc tidal volumes and 10 L minute ventilation but remains afebrile and does not have significant white count or left shift stable renal function except that there was a bump in his BUN so were going to check stool guaiac to be sure it does not reflect a GI bleed I do believe it represents a degree of pre renal azotemia Extremities shows improvement in the rubor no clinical cellulitis and peripheral pulses are palpable Objective Data Labs CBC & Chem 7: 05/23/20 05:41 05/23/20 05:41 Labs: Laboratory Results - last 24 hr 05/22/20 05/22/20 05/22/20 12:19 17:56 23:54 WBC RBC Hgb Hct MCV MCH MCHC RDW Plt Count MPV Immature Gran % (Auto) Neut % (Auto) Lymph % (Auto) [place] % (Auto) Eos % (Auto) Baso % (Auto) Lymph # (Auto) [place] # (Auto) Eos # (Auto) Baso # (Auto) Abs Immat Gran (auto) Absolute Neuts (auto) Absolute Nucleated RBC Nucleated RBC % (auto) Smear Tech's Comments PT INR APTT D-Dimer VBG pH VBG pCO2 VBG pO2 VBG HCO3 VBG O2 Saturation VBG Base Excess Sodium Potassium Chloride Carbon Dioxide Anion Gap BUN Creatinine Estim Creat Clear Calc Estimated GFR POC Glucose 181 H 190 H Random Glucose Calcium Phosphorus Magnesium Total Bilirubin Direct Bilirubin AST ALT Alkaline Phosphatase B-Natriuretic Peptide Total Protein Albumin CSF Appearance (b) CSF Glucose CSF Total Protein Cryoglobulin Cancelled Cryoglobulin Cryocrit Cancelled T.pallidum Ab (EIA) 05/22/20 05/23/20 05/23/20 Unknown 05:40 05:41 WBC 10.4 RBC 2.83 L Hgb 8.2 L Hct 25.9 L MCV 91.5 MCH 29.0 MCHC 31.7 RDW 15.3 Plt Count 445 H MPV 10.3 Immature Gran % (Auto) 0.6 H Neut % (Auto) 87.9 H Lymph % (Auto) 5.9 L [place] % (Auto) 5.5 Eos % (Auto) 0.0 Baso % (Auto) 0.1 Lymph # (Auto) 0.6 L [place] # (Auto) 0.6 Eos # (Auto) 0.0 Baso # (Auto) 0.0 Abs Immat Gran (auto) 0.06 H Absolute Neuts (auto) 9.1 H Absolute Nucleated RBC 0.000 Nucleated RBC % (auto) 0.0 Smear Tech's Comments VERIFIED PT INR APTT D-Dimer VBG pH VBG pCO2 VBG pO2 VBG HCO3 VBG O2 Saturation VBG Base Excess Sodium Potassium Chloride Carbon Dioxide Anion Gap BUN Creatinine Estim Creat Clear Calc Estimated GFR POC Glucose Random Glucose Calcium Phosphorus Magnesium Total Bilirubin Direct Bilirubin AST ALT Alkaline Phosphatase B-Natriuretic Peptide Total Protein Albumin CSF Appearance (b) Bloody CSF Glucose 136 CSF Total Protein 477.4 H Cryoglobulin Cryoglobulin Cryocrit T.pallidum Ab (EIA) Nonreactive 05/23/20 05/23/20 05/23/20 05:41 05:41 05:41 WBC RBC Hgb Hct MCV MCH MCHC RDW Plt Count MPV Immature Gran % (Auto) Neut % (Auto) Lymph % (Auto) [place] % (Auto) Eos % (Auto) Baso % (Auto) Lymph # (Auto) [place] # (Auto) Eos # (Auto) Baso # (Auto) Abs Immat Gran (auto) Absolute Neuts (auto) Absolute Nucleated RBC Nucleated RBC % (auto) Smear Tech's Comments PT 13.0 INR 1.1 APTT 28.6 D-Dimer 2599 VBG pH VBG pCO2 VBG pO2 VBG HCO3 VBG O2 Saturation VBG Base Excess Sodium 142 Potassium 4.9 Chloride 108 Carbon Dioxide 22 Anion Gap 17 BUN 100 H* Creatinine 2.46 H Estim Creat Clear Calc 31.9 Estimated GFR 26 POC Glucose Random Glucose 159 H Calcium 8.3 L Phosphorus 4.6 H Magnesium 3.3 H Total Bilirubin 0.2 Direct Bilirubin 0.2 AST 20 D ALT 40 Alkaline Phosphatase 71 B-Natriuretic Peptide 195 H Total Protein 7.8 Albumin 3.0 L CSF Appearance (b) CSF Glucose CSF Total Protein Cryoglobulin Cryoglobulin Cryocrit T.pallidum Ab (EIA) 05/23/20 05/23/20 05/23/20 05:45 06:21 11:52 WBC RBC Hgb Hct MCV MCH MCHC RDW Plt Count MPV Immature Gran % (Auto) Neut % (Auto) Lymph % (Auto) [place] % (Auto) Eos % (Auto) Baso % (Auto) Lymph # (Auto) [place] # (Auto) Eos # (Auto) Baso # (Auto) Abs Immat Gran (auto) Absolute Neuts (auto) Absolute Nucleated RBC Nucleated RBC % (auto) Smear Tech's Comments PT INR APTT D-Dimer VBG pH 7.43 VBG pCO2 35 VBG pO2 83 VBG HCO3 23 VBG O2 Saturation 94.0 VBG Base Excess 0.2 Sodium Potassium Chloride Carbon Dioxide Anion Gap BUN Creatinine Estim Creat Clear Calc Estimated GFR POC Glucose 133 H 151 H Random Glucose Calcium Phosphorus Magnesium Total Bilirubin Direct Bilirubin AST ALT Alkaline Phosphatase B-Natriuretic Peptide Total Protein Albumin CSF Appearance (b) CSF Glucose CSF Total Protein Cryoglobulin Cryoglobulin Cryocrit T.pallidum Ab (EIA) Microbiology Microbiology Results: Microbiology 05/21/20 21:00 Sacrum Gram Stain - Final 05/21/20 21:00 Sacrum Routine Culture - Preliminary Gram negative debbie 05/21/20 22:50 Sputum - Suctioned Gram Stain - Final 05/21/20 22:50 Sputum - Suctioned Sputum Culture - Preliminary No growth to date. 05/22/20 00:27 Urine Catheterized - Fermin Catheter Urine Culture - Final No growth. 05/22/20 00:14 Blood - Venous Blood Culture - Preliminary No growth after 24 hours. 05/22/20 00:18 Blood - Venous Blood Culture - Preliminary No growth after 24 hours. 05/16/20 12:30 Cerebrospinal Fluid Gram Stain - Final 05/16/20 12:30 Cerebrospinal Fluid CSF Examination - Final 05/16/20 12:30 Cerebrospinal Fluid Fluid Description - Final 05/16/20 12:30 Cerebrospinal Fluid CSF Culture - Final No growth after 3 days. 05/06/20 14:27 Blood - Venous Blood Culture - Final No growth after 5 days. 05/06/20 14:24 Blood - Venous Blood Culture - Final No growth after 5 days. 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 Shall follow closely Status: Acute (8) Acute respiratory failure with hypercapnia: Status: Acute (9) Anemia: Status: Acute (10) Encephalopathy: Problem details: There are no infectious causes evident at this time His ESR checked on request and is over 100 There is concern over giant cell arteritis/vasculitis Status: Acute (11) Hypoxemia requiring supplemental oxygen: Status: Acute (12) Acute metabolic encephalopathy: Status: Acute (13) Aspiration pneumonia: Status: Acute (14) Cellulitis: Problem details: resolved Status: Acute (15) CKD (chronic kidney disease), stage III: Status: Acute (16) Hypernatremia: Status: Acute Assessment and Plan: So at this point on beginning Decadron empirically and if he awakens further with some demonstration of cognitive function I think a pressure support weaning trial would be in order Time Spent With Patient Time: Total time spent is greater than 50% in coordination of care (as documented) at patient's floor/unit and/or counseling patient: Total time spent with greater than 50% in coordination of care (as documented) at patient's floor/unit and/or counseling patient:: 40
[2020-05-23 16:17] LABS: Homocysteine 15.3 umol/L (<11.4)
--- NOTE | 2020-05-23 16:34 | PC.NURSE ---
S/E Afebrile Sedation off since 05/14 ; Unable to follow commands Briefly opened eyes to name ; No tracking Weak cough & gag; Agitated with tactile stimuli Pupils 3m, PERRLA MR head/brain w/ contrast ordered and completed Ativan 2mg IVP administered prior SR/ST HR low 100's, no ectopy + bilat pedal pulses w/ dopplar CVP 12 - MD notified L IJ TLC removed - 2 PRN angios placed LS dim throughout 7.5 ETT 25cm @ lip ; Vent settings unchanged Frothy white inline secretions - MD aware Tolerating tube feeds well, residuals 40cc Abdomen soft, round, nontender, +BS H&H 8.2/25.9 - Heparin on hold, pending stool collection POC q6hr - humalog SS administered Urine output 40-100cc/hr, pale yellow Bun 100, creat 2.46 - okay for contrast per md's Cellulitis bilat lower ext - abx ointment applied Fungal bilat groin - Nystatin applied x2 Unstagable pressure injuries to coccyx Wound care following ; General surgery consulted Debriedment completed at bedside by Dr Belcher Dressing changed per wound care instructions Air loss bed in place, repo R/L q2hr, bathed Family updated and at bedside
[2020-05-23 17:55] LABS: Glucose, Whole Blood 248 mg/dL (60-115)
[2020-05-24] VITALS (36 sets, daily range): BP systolic 108–158; BP diastolic 43–75; PULSE 61–116; RESP 12–26; TEMP 36.2–37.3; O2SAT 21–98; BMI 44.6
[2020-05-24] MEDS: Acetylcysteine 10 % 400 MG/4 ML VIAL INHALE ×6 (00:02→20:47)
[2020-05-24] MEDS: Nystatin Powder 15 GM BOTTLE 1 APPL TOPICAL ×4 (00:15→23:13)
[2020-05-24 00:24] LABS: Glucose, Whole Blood 159 mg/dL (60-115)
[2020-05-24] MEDS: Insulin Lispro 100 UNIT/ML 3 ML VIAL SUBCUT ×4 (01:06→18:12)
[2020-05-24] MEDS: 0.9 % Sodium Chloride Flush 3 ML SYRINGE IVFLUSH ×3 (01:07→16:49)
[2020-05-24] MEDS: Albuterol/Iprat 2.5/0.5MG 3 ML AMPUL.NEB INHALE ×7 (04:23→20:47)
[2020-05-24 05:26] LABS: VBG Base Excess 0.5 mmol/L; VBG HCO3 23 mmol/L (22-26); VBG pCO2 30 mmHg; VBG pH 7.48 (7.32-7.43); VBG pO2 151 mmHg
[2020-05-24 05:49] LABS: Hematocrit 26.2 % (42-52); Hemoglobin 8.2 g/dl (14.0-18.0); Imm Gran Abs Auto 0.08 X10*3/uL (0.00-0.03); Imm Gran Pct Auto 0.8 % (0.0-0.4); Lymphocytes Absolute Auto 0.3 X10*3/uL (1.2-4.9); Lymphocytes Percent Auto 3.2 % (20-40); MANUAL DIFF FLAG SCAN; Mean Corpuscular HGB Conc 31.3 g/dl (31.0-36.0); Mean Corpuscular Hemoglobin 28.7 pg (27.0-33.0); Mean Corpuscular Volume 91.6 fL (80-98); Mean Platelet Volume 10.7 fL (9.4-12.4); Monocytes Absolute Auto 0.2 X10*3/uL (0.1-1.2); Monocytes Percent Auto 1.7 % (2-11); Neutrophils Absolute Auto 9.1 X10*3/uL (2.0-8.3); Neutrophils Percent Auto 94.3 % (45-73); Platelet Count 437 X10*3/uL (160-400); Red Blood Count 2.86 X10*6/uL (4.60-5.80); SCAN SMEAR FLAG 1; White Blood Count 9.6 X10*3/uL (4.8-10.8)
[2020-05-24 06:03] LABS: INTERNATIONAL NORM RATIO 1.1 (0.9-1.1); Prothrombin Time 13.1 SEC (10.8-13.0)
[2020-05-24 06:06] LABS: Partial Thromboplastin Time 28.9 SEC (24.1-38.0)
[2020-05-24 06:14] LABS: B Type Natriuretic Peptide 215 pg/mL (<100); Venous Blood Gas Refer to POC result
[2020-05-24 06:15] LABS: Alanine Aminotransferase 32 U/L (0-40); Albumin Level 3.1 g/dL (3.5-5.0); Alkaline Phosphatase 66 U/L (39-117); Anion Gap 16 (12-20); Aspartate Amino Transferase 15 U/L (5-37); Bilirubin Direct 0.2 mg/dL (0.0-0.5); Bilirubin Total 0.3 mg/dL (0.0-1.0); Blood Urea Nitrogen 97 mg/dL (9-16); Calcium 8.3 mg/dL (8.4-10.2); Carbon Dioxide 23 mmol/L (22-29); Chloride 109 mmol/L (96-108); Creatinine Clr Calc Pharmacy 33.1; Estimated Glomerular Filt Rate 27; Glucose Random 192 mg/dL (60-115); Magnesium 3.4 mg/dL (1.6-2.6); Phosphorus 4.5 mg/dL (2.7-4.5); Potassium 5.6 mmol/L (3.3-5.1); Sodium 142 mmol/L (135-145); Total Protein 7.6 g/dL (6.5-8.0)
[2020-05-24 06:16] LABS: SLIDE REVIEW VERIFIED
[2020-05-24 06:23] LABS: D Dimer 3140 NG/ML
[2020-05-24] MEDS: Famotidine/PF 20 MG/2 ML VIAL IVPUSH (08:25)
[2020-05-24] MEDS: Chlorhexidine Gluc Oral Rinse 15 ML MOUTHWASH BUCCAL ×3 (08:25→21:00)
[2020-05-24] MEDS: Heparin Sodium,Porcine 5,000 UNIT/ML VIAL 5000 UNIT SUBCUT ×3 (08:25→23:01)
[2020-05-24] MEDS: Levothyroxine Sodium 125 MCG TABLET PO (08:25)
[2020-05-24] MEDS: Thiamine HCL 100 MG TABLET PO (08:25)
[2020-05-24] MEDS: Betamethasone Dip Aug 0.05% Cr 15 GM TUBE 1 APPL TOPICAL ×2 (08:28→23:14)
[2020-05-24 11:52] LABS: Glucose, Whole Blood 186 mg/dL (60-115)
[2020-05-24 13:48] LABS: Myeloperoxidase Antibody <1.0 AI; Proteinase 3 PR3 Antibodies <1.0 AI
[2020-05-24] MEDS: propofoL 1,000 MG/100 ML VIAL 14.59 MG IVCONT ×2 (14:20→19:13)
[2020-05-24 16:12] LABS: Cardiolipin IgG Ab 44 GPL; Cardiolipin IgM Ab <12 MPL
--- NOTE | 2020-05-24 16:14 | PM.CCPN ---
Subjective Subjective Date of Service: 05/24/20 Interval History: 74-year-old male presented with altered mental status 3 weeks ago with what appeared to be cellulitis as a potential source started on clindamycin initially mental status deteriorated he was clinically septic transfer down to the ICU then transferred back to the floor shortly thereafter again emergent intubation this time required with with again loss of mental status and he has been intubated ever since and were closing in on 2 weeks He apparently had an aspiration picture which seems to be cleared and acute on chronic stage III renal failure with a current clearance bordering on 30 cc which is back to a stable baseline for him and he is nonoliguric he had a stable CVP so his central line was discontinued and today he is beginning to open his eyes once on demand but still no eye contact no signs of good cognitive function of the meaningful degree and he is undergoing debridement of his decubitus ulcer he is chronically anemic but no apparent active GI bleeding we had to sedate him begin because he did bite his tongue and I think it is because he is agitated with the endotracheal tube now that he is becoming increasingly aware and his repeat MRI of his head did not show any significant structural disease on any portion of the MRI nonetheless persistent delirium may be ever so slightly improved Physical Exam Vital Signs: Vital Signs: Last Vital Signs Temp 98.6 F 05/24/20 16:00 Pulse 68 05/24/20 16:00 Resp 12 05/24/20 16:00 BP 108/45 L 05/24/20 16:00 Pulse Ox 90 L 05/24/20 16:00 Body Mass Index 44.6 Const: Other: Stable vital signs afebrile clear chest x-ray still not moving his lower extremities but withdraws both upper extremities Skin with healing in both lower extremities and buttock is being debrided Abdomen benign accepting feedings good bowel sounds no again no megaly Chest with coarse bilateral ventilatory sounds and and still has a 10 L minute ventilatory requirement but FiO2 is less than 30% Cardiac exam no gallops or murmurs Objective Data Labs CBC & Chem 7: 05/24/20 05:17 05/24/20 05:17 Labs: Laboratory Results - last 24 hr 05/22/20 05/22/20 05/22/20 12:18 12:18 12:19 WBC RBC Hgb Hct MCV MCH MCHC RDW Plt Count MPV Immature Gran % (Auto) Neut % (Auto) Lymph % (Auto) [place] % (Auto) Eos % (Auto) Baso % (Auto) Lymph # (Auto) [place] # (Auto) Eos # (Auto) Baso # (Auto) Abs Immat Gran (auto) Absolute Neuts (auto) Absolute Nucleated RBC Nucleated RBC % (auto) Smear Tech's Comments PT INR APTT D-Dimer VBG pH VBG pCO2 VBG pO2 VBG HCO3 VBG O2 Saturation VBG Base Excess Sodium Potassium Chloride Carbon Dioxide Anion Gap BUN Creatinine Estim Creat Clear Calc Estimated GFR POC Glucose Random Glucose Calcium Phosphorus Magnesium Total Bilirubin Direct Bilirubin AST ALT Alkaline Phosphatase B-Natriuretic Peptide Total Protein Albumin Homocysteine 15.3 H Proteinase 3 (PR3) Ab <1.0 Myeloperoxidase Ab <1.0 Anti-Cardiolipin IgG Ab 44 H Anti-Cardiolipin IgM Ab <12 05/23/20 05/24/20 05/24/20 17:51 00:20 05:17 WBC 9.6 RBC 2.86 L Hgb 8.2 L Hct 26.2 L MCV 91.6 MCH 28.7 MCHC 31.3 RDW 16.0 Plt Count 437 H MPV 10.7 Immature Gran % (Auto) 0.8 H Neut % (Auto) 94.3 H Lymph % (Auto) 3.2 L [place] % (Auto) 1.7 L Eos % (Auto) 0.0 Baso % (Auto) 0.0 Lymph # (Auto) 0.3 L [place] # (Auto) 0.2 Eos # (Auto) 0.0 Baso # (Auto) 0.0 Abs Immat Gran (auto) 0.08 H Absolute Neuts (auto) 9.1 H Absolute Nucleated RBC 0.000 Nucleated RBC % (auto) 0.0 Smear Tech's Comments VERIFIED PT INR APTT D-Dimer VBG pH VBG pCO2 VBG pO2 VBG HCO3 VBG O2 Saturation VBG Base Excess Sodium Potassium Chloride Carbon Dioxide Anion Gap BUN Creatinine Estim Creat Clear Calc Estimated GFR POC Glucose 248 H 159 H Random Glucose Calcium Phosphorus Magnesium Total Bilirubin Direct Bilirubin AST ALT Alkaline Phosphatase B-Natriuretic Peptide Total Protein Albumin Homocysteine Proteinase 3 (PR3) Ab Myeloperoxidase Ab Anti-Cardiolipin IgG Ab Anti-Cardiolipin IgM Ab 05/24/20 05/24/20 05/24/20 05:17 05:17 05:17 WBC RBC Hgb Hct MCV MCH MCHC RDW Plt Count MPV Immature Gran % (Auto) Neut % (Auto) Lymph % (Auto) [place] % (Auto) Eos % (Auto) Baso % (Auto) Lymph # (Auto) [place] # (Auto) Eos # (Auto) Baso # (Auto) Abs Immat Gran (auto) Absolute Neuts (auto) Absolute Nucleated RBC Nucleated RBC % (auto) Smear Tech's Comments PT 13.1 H INR 1.1 APTT 28.9 D-Dimer 3140 VBG pH VBG pCO2 VBG pO2 VBG HCO3 VBG O2 Saturation VBG Base Excess Sodium 142 Potassium 5.6 H Chloride 109 H Carbon Dioxide 23 Anion Gap 16 BUN 97 H* Creatinine 2.37 H Estim Creat Clear Calc 33.1 Estimated GFR 27 POC Glucose Random Glucose 192 H Calcium 8.3 L Phosphorus 4.5 Magnesium 3.4 H Total Bilirubin 0.3 Direct Bilirubin 0.2 AST 15 ALT 32 Alkaline Phosphatase 66 B-Natriuretic Peptide 215 H Total Protein 7.6 Albumin 3.1 L Homocysteine Proteinase 3 (PR3) Ab Myeloperoxidase Ab Anti-Cardiolipin IgG Ab Anti-Cardiolipin IgM Ab 05/24/20 05/24/20 05:18 11:49 WBC RBC Hgb Hct MCV MCH MCHC RDW Plt Count MPV Immature Gran % (Auto) Neut % (Auto) Lymph % (Auto) [place] % (Auto) Eos % (Auto) Baso % (Auto) Lymph # (Auto) [place] # (Auto) Eos # (Auto) Baso # (Auto) Abs Immat Gran (auto) Absolute Neuts (auto) Absolute Nucleated RBC Nucleated RBC % (auto) Smear Tech's Comments PT INR APTT D-Dimer VBG pH 7.48 H VBG pCO2 30 VBG pO2 151 VBG HCO3 23 VBG O2 Saturation 97.0 VBG Base Excess 0.5 Sodium Potassium Chloride Carbon Dioxide Anion Gap BUN Creatinine Estim Creat Clear Calc Estimated GFR POC Glucose 186 H Random Glucose Calcium Phosphorus Magnesium Total Bilirubin Direct Bilirubin AST ALT Alkaline Phosphatase B-Natriuretic Peptide Total Protein Albumin Homocysteine Proteinase 3 (PR3) Ab Myeloperoxidase Ab Anti-Cardiolipin IgG Ab Anti-Cardiolipin IgM Ab Microbiology Microbiology Results: Microbiology 05/21/20 22:50 Sputum - Suctioned Gram Stain - Final 05/21/20 22:50 Sputum - Suctioned Sputum Culture - Final No growth. 05/21/20 21:00 Sacrum Gram Stain - Final 05/21/20 21:00 Sacrum Routine Culture - Final Pseudomonas aeruginosa Klebsiella pneumoniae 05/22/20 00:14 Blood - Venous Blood Culture - Preliminary No growth after 48 hours. 05/22/20 00:18 Blood - Venous Blood Culture - Preliminary No growth after 48 hours. 05/22/20 00:27 Urine Catheterized - Fermin Catheter Urine Culture - Final No growth. 05/16/20 12:30 Cerebrospinal Fluid Gram Stain - Final 05/16/20 12:30 Cerebrospinal Fluid CSF Examination - Final 05/16/20 12:30 Cerebrospinal Fluid Fluid Description - Final 05/16/20 12:30 Cerebrospinal Fluid CSF Culture - Final No growth after 3 days. 05/06/20 14:27 Blood - Venous Blood Culture - Final No growth after 5 days. 05/06/20 14:24 Blood - Venous Blood Culture - Final No growth after 5 days. 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 Shall follow closely Status: Acute (8) Acute respiratory failure with hypercapnia: Status: Acute (9) Anemia: Status: Acute (10) Encephalopathy: Problem details: There are no infectious causes evident at this time His ESR checked on request and is over 100 There is concern over giant cell arteritis/vasculitis Status: Acute (11) Hypoxemia requiring supplemental oxygen: Status: Acute (12) Acute metabolic encephalopathy: Status: Acute (13) Aspiration pneumonia: Status: Acute (14) Cellulitis: Problem details: resolved Status: Acute (15) CKD (chronic kidney disease), stage III: Status: Acute (16) Hypernatremia: Status: Acute Assessment and Plan: So we will wait till tomorrow as I explained to the sedated with propofol to stop the discomfort and but will hold as of 6:00 a.m. tomorrow morning and reassess mental status to try to assess sense of direction if there is any slight degree of improvement I would say keep observing for a few more days eventually if he has cognitive function he might be extubated will Time Spent With Patient Time: Total time spent is greater than 50% in coordination of care (as documented) at patient's floor/unit and/or counseling patient: Total time spent with greater than 50% in coordination of care (as documented) at patient's floor/unit and/or counseling patient:: 45
--- NOTE | 2020-05-24 17:31 | PM.PNNEP ---
Subjective Subjective Date of Service: 05/24/20 Interval history: Events noted. All recent data reviewed Physical Exam Vital Signs: Vital Signs: Last Vital Signs Temp 98.2 F 05/24/20 17:00 Pulse 92 05/24/20 17:00 Resp 20 05/24/20 17:00 BP 131/64 05/24/20 17:00 Pulse Ox 93 05/24/20 17:00 Body Mass Index 44.6 Const: General: No acute distress Neck: Neck: Yes supple Resp: Auscultation: diminished lung sounds Cardio: Heart sounds: no rubs GI: Palpation (GI): Soft to palpation Extrem: General: No edema Objective Data Labs CBC & Chem 7: 05/24/20 05:17 05/24/20 05:17 Labs: Laboratory Results - last 24 hr 05/22/20 05/22/20 05/23/20 12:18 12:18 17:51 WBC RBC Hgb Hct MCV MCH MCHC RDW Plt Count MPV Immature Gran % (Auto) Neut % (Auto) Lymph % (Auto) [place] % (Auto) Eos % (Auto) Baso % (Auto) Lymph # (Auto) [place] # (Auto) Eos # (Auto) Baso # (Auto) Abs Immat Gran (auto) Absolute Neuts (auto) Absolute Nucleated RBC Nucleated RBC % (auto) Smear Tech's Comments PT INR APTT D-Dimer VBG pH VBG pCO2 VBG pO2 VBG HCO3 VBG O2 Saturation VBG Base Excess Sodium Potassium Chloride Carbon Dioxide Anion Gap BUN Creatinine Estim Creat Clear Calc Estimated GFR POC Glucose 248 H Random Glucose Calcium Phosphorus Magnesium Total Bilirubin Direct Bilirubin AST ALT Alkaline Phosphatase B-Natriuretic Peptide Total Protein Albumin Proteinase 3 (PR3) Ab <1.0 Myeloperoxidase Ab <1.0 Anti-Cardiolipin IgG Ab 44 H Anti-Cardiolipin IgM Ab <12 05/24/20 05/24/20 05/24/20 00:20 05:17 05:17 WBC 9.6 RBC 2.86 L Hgb 8.2 L Hct 26.2 L MCV 91.6 MCH 28.7 MCHC 31.3 RDW 16.0 Plt Count 437 H MPV 10.7 Immature Gran % (Auto) 0.8 H Neut % (Auto) 94.3 H Lymph % (Auto) 3.2 L [place] % (Auto) 1.7 L Eos % (Auto) 0.0 Baso % (Auto) 0.0 Lymph # (Auto) 0.3 L [place] # (Auto) 0.2 Eos # (Auto) 0.0 Baso # (Auto) 0.0 Abs Immat Gran (auto) 0.08 H Absolute Neuts (auto) 9.1 H Absolute Nucleated RBC 0.000 Nucleated RBC % (auto) 0.0 Smear Tech's Comments VERIFIED PT 13.1 H INR 1.1 APTT 28.9 D-Dimer 3140 VBG pH VBG pCO2 VBG pO2 VBG HCO3 VBG O2 Saturation VBG Base Excess Sodium Potassium Chloride Carbon Dioxide Anion Gap BUN Creatinine Estim Creat Clear Calc Estimated GFR POC Glucose 159 H Random Glucose Calcium Phosphorus Magnesium Total Bilirubin Direct Bilirubin AST ALT Alkaline Phosphatase B-Natriuretic Peptide Total Protein Albumin Proteinase 3 (PR3) Ab Myeloperoxidase Ab Anti-Cardiolipin IgG Ab Anti-Cardiolipin IgM Ab 05/24/20 05/24/20 05/24/20 05:17 05:17 05:18 WBC RBC Hgb Hct MCV MCH MCHC RDW Plt Count MPV Immature Gran % (Auto) Neut % (Auto) Lymph % (Auto) [place] % (Auto) Eos % (Auto) Baso % (Auto) Lymph # (Auto) [place] # (Auto) Eos # (Auto) Baso # (Auto) Abs Immat Gran (auto) Absolute Neuts (auto) Absolute Nucleated RBC Nucleated RBC % (auto) Smear Tech's Comments PT INR APTT D-Dimer VBG pH 7.48 H VBG pCO2 30 VBG pO2 151 VBG HCO3 23 VBG O2 Saturation 97.0 VBG Base Excess 0.5 Sodium 142 Potassium 5.6 H Chloride 109 H Carbon Dioxide 23 Anion Gap 16 BUN 97 H* Creatinine 2.37 H Estim Creat Clear Calc 33.1 Estimated GFR 27 POC Glucose Random Glucose 192 H Calcium 8.3 L Phosphorus 4.5 Magnesium 3.4 H Total Bilirubin 0.3 Direct Bilirubin 0.2 AST 15 ALT 32 Alkaline Phosphatase 66 B-Natriuretic Peptide 215 H Total Protein 7.6 Albumin 3.1 L Proteinase 3 (PR3) Ab Myeloperoxidase Ab Anti-Cardiolipin IgG Ab Anti-Cardiolipin IgM Ab 05/24/20 11:49 WBC RBC Hgb Hct MCV MCH MCHC RDW Plt Count MPV Immature Gran % (Auto) Neut % (Auto) Lymph % (Auto) [place] % (Auto) Eos % (Auto) Baso % (Auto) Lymph # (Auto) [place] # (Auto) Eos # (Auto) Baso # (Auto) Abs Immat Gran (auto) Absolute Neuts (auto) Absolute Nucleated RBC Nucleated RBC % (auto) Smear Tech's Comments PT INR APTT D-Dimer VBG pH VBG pCO2 VBG pO2 VBG HCO3 VBG O2 Saturation VBG Base Excess Sodium Potassium Chloride Carbon Dioxide Anion Gap BUN Creatinine Estim Creat Clear Calc Estimated GFR POC Glucose 186 H Random Glucose Calcium Phosphorus Magnesium Total Bilirubin Direct Bilirubin AST ALT Alkaline Phosphatase B-Natriuretic Peptide Total Protein Albumin Proteinase 3 (PR3) Ab Myeloperoxidase Ab Anti-Cardiolipin IgG Ab Anti-Cardiolipin IgM Ab Microbiology Microbiology Results: Microbiology 05/21/20 22:50 Sputum - Suctioned Gram Stain - Final 05/21/20 22:50 Sputum - Suctioned Sputum Culture - Final No growth. 05/21/20 21:00 Sacrum Gram Stain - Final 05/21/20 21:00 Sacrum Routine Culture - Final Pseudomonas aeruginosa Klebsiella pneumoniae 05/22/20 00:14 Blood - Venous Blood Culture - Preliminary No growth after 48 hours. 05/22/20 00:18 Blood - Venous Blood Culture - Preliminary No growth after 48 hours. 05/22/20 00:27 Urine Catheterized - Fermin Catheter Urine Culture - Final No growth. 05/16/20 12:30 Cerebrospinal Fluid Gram Stain - Final 05/16/20 12:30 Cerebrospinal Fluid CSF Examination - Final 05/16/20 12:30 Cerebrospinal Fluid Fluid Description - Final 05/16/20 12:30 Cerebrospinal Fluid CSF Culture - Final No growth after 3 days. 05/06/20 14:27 Blood - Venous Blood Culture - Final No growth after 5 days. 05/06/20 14:24 Blood - Venous Blood Culture - Final No growth after 5 days. Assessment & Plan Assessment and plan (1) Acute renal failure: Problem details: Non oliguric JETT due to ATN Has baseline CKD 3 Renal functions fairly stable No indication for renal replacement Shall continue current supportive care Labs AM. Shall follow closely Status: Acute Time Spent With Patient Time: Total time spent is greater than 50% in coordination of care (as documented) at patient's floor/unit and/or counseling patient:
--- NOTE | 2020-05-24 17:42 | PC.NURSE ---
S/E Afebrile ; Neuro status unchanged No tracking ; No pain response Positive cough and gag Moves all four extremities Agitated with care - Propofol gtt started SR, no ectopy ; no edema Positive pedal pulses with doppler LS dim lower extremities 7.5 ett 25 cm @ lip ; Vent settings unchanged Tolerating tube feeds well POC q6hr ; On humalog SS Urine output approx 60cc/hr Multiple skin integrity concerns - see separate documentation Bathed, repo q2hr, air loss bed in place Family updated
[2020-05-24 17:50] LABS: Glucose, Whole Blood 191 mg/dL (60-115)
[2020-05-24 23:55] LABS: Glucose, Whole Blood 184 mg/dL (60-115)
[2020-05-25] VITALS (34 sets, daily range): BP systolic 107–140; BP diastolic 43–77; PULSE 59–86; RESP 15–23; TEMP 35.8–36.9; O2SAT 90–96; BMI 44.7
[2020-05-25] MEDS: Insulin Lispro 100 UNIT/ML 3 ML VIAL SUBCUT ×4 (00:08→18:17)
[2020-05-25] MEDS: Chlorhexidine Gluc Oral Rinse 15 ML MOUTHWASH BUCCAL ×3 (00:33→22:18)
[2020-05-25] MEDS: Acetylcysteine 10 % 400 MG/4 ML VIAL INHALE ×5 (00:48→15:50)
[2020-05-25] MEDS: Albuterol/Iprat 2.5/0.5MG 3 ML AMPUL.NEB INHALE ×6 (00:48→20:17)
[2020-05-25] MEDS: propofoL 1,000 MG/100 ML VIAL 14.59 MG IVCONT ×2 (01:31→06:10)
[2020-05-25 05:53] LABS: Hematocrit 26.9 % (42-52); Hemoglobin 8.3 g/dl (14.0-18.0); Imm Gran Abs Auto 0.05 X10*3/uL (0.00-0.03); Imm Gran Pct Auto 0.7 % (0.0-0.4); Lymphocytes Absolute Auto 0.3 X10*3/uL (1.2-4.9); Lymphocytes Percent Auto 4.4 % (20-40); MANUAL DIFF FLAG SCAN; Mean Corpuscular HGB Conc 30.9 g/dl (31.0-36.0); Mean Corpuscular Hemoglobin 29.2 pg (27.0-33.0); Mean Corpuscular Volume 94.7 fL (80-98); Mean Platelet Volume 10.8 fL (9.4-12.4); Monocytes Absolute Auto 0.1 X10*3/uL (0.1-1.2); Monocytes Percent Auto 1.9 % (2-11); Neutrophils Absolute Auto 6.8 X10*3/uL (2.0-8.3); Platelet Count 395 X10*3/uL (160-400); Red Blood Count 2.84 X10*6/uL (4.60-5.80); Red Cell Distribution Width 16.6 % (11.0-16.0); SCAN SMEAR FLAG 1; White Blood Count 7.4 X10*3/uL (4.8-10.8)
[2020-05-25 05:55] LABS: VBG Base Excess -3.1 mmol/L; VBG HCO3 21 mmol/L (22-26); VBG pCO2 38 mmHg; VBG pH 7.36 (7.32-7.43); VBG pO2 126 mmHg
[2020-05-25 05:59] LABS: Venous Blood Gas Refer to POC result
[2020-05-25 06:01] LABS: INTERNATIONAL NORM RATIO 1.1 (0.9-1.1); Prothrombin Time 12.5 SEC (10.8-13.0)
[2020-05-25 06:03] LABS: Partial Thromboplastin Time 34.3 SEC (24.1-38.0)
[2020-05-25] MEDS: 0.9 % Sodium Chloride Flush 3 ML SYRINGE IVFLUSH ×3 (06:06→16:00)
[2020-05-25 06:09] LABS: Alanine Aminotransferase 30 U/L (0-40); Albumin Level 3.1 g/dL (3.5-5.0); Alkaline Phosphatase 67 U/L (39-117); Anion Gap 16 (12-20); Aspartate Amino Transferase 16 U/L (5-37); B Type Natriuretic Peptide 199 pg/mL (<100); Bilirubin Direct 0.2 mg/dL (0.0-0.5); Bilirubin Total 0.3 mg/dL (0.0-1.0); Blood Urea Nitrogen 97 mg/dL (9-16); Calcium 8.4 mg/dL (8.4-10.2); Carbon Dioxide 21 mmol/L (22-29); Chloride 111 mmol/L (96-108); Creatinine Clr Calc Pharmacy 33.8; Estimated Glomerular Filt Rate 28; Glucose Random 235 mg/dL (60-115); Magnesium 3.6 mg/dL (1.6-2.6); Phosphorus 4.7 mg/dL (2.7-4.5); Potassium 5.2 mmol/L (3.3-5.1); Sodium 143 mmol/L (135-145); Total Protein 7.5 g/dL (6.5-8.0)
[2020-05-25 06:11] LABS: D Dimer 2201 NG/ML
[2020-05-25 06:23] LABS: SLIDE REVIEW VERIFIED
[2020-05-25 06:25] LABS: Glucose, Whole Blood 199 mg/dL (60-115)
--- NOTE | 2020-05-25 06:35 | PC.NURSE ---
SEMIRESPONSIVE. ATTEMPTS TO OPEN EYES WHEN SPOKEN TO. NO TRACKING OR FOCUSING. LOCALIZES UPPER EXTREMITIES TOWARD INVASIVE LINES. LOWER LEGS EXHIBIT DECREASED STRENGTH AND RANDOM NONPURPOSEFUL MOVEMENT. HAVE TX POC WITH INSULIN SLIDING SCALE. INTUBATED AND MAINTAINED ON PRESSURE CONTROL VENTILATION. RESP EFFORT IN HARMONY WITH MECHANICAL VENTILATOR. BREATH SOUNDS CTA/DIMINISHED THROUGHOUT. ECG DISPLAYS SR. HEMODYANMICALLY STABLE. ABDOMEN BENIGN. TOLERATING TUBE FEEDINGS GLUCERNA AT 60ML/HR. H20 BOLUSES 240 Q 6HR.
[2020-05-25] MEDS: Betamethasone Dip Aug 0.05% Cr 15 GM TUBE 1 APPL TOPICAL ×2 (08:00→18:07)
[2020-05-25] MEDS: Nystatin Powder 15 GM BOTTLE 1 APPL TOPICAL ×3 (08:00→22:23)
[2020-05-25] MEDS: Heparin Sodium,Porcine 5,000 UNIT/ML VIAL 5000 UNIT SUBCUT ×2 (08:30→16:30)
[2020-05-25] MEDS: Thiamine HCL 100 MG TABLET PO (10:00)
[2020-05-25] MEDS: Levothyroxine Sodium 125 MCG TABLET PO (10:00)
[2020-05-25] MEDS: Sodium Bicarbonate 650 MG TABLET PO ×3 (10:00→22:18)
[2020-05-25] MEDS: Famotidine/PF 20 MG/2 ML VIAL IVPUSH (10:00)
--- NOTE | 2020-05-25 10:15 | MHC.CM.PN ---
Pt remains in ICU on vent support. feels pt is making incredibly slow possible progress and feels if his MS improves over the weekend then he can initiate vent weaning on Thursday. Family meeting today to discuss goals of care including ? EMERGENCY DEPARTMENT RN if pt fails weaning or cannot manage secretions. CM to re-assess d/c needs on Thursday, 05/28.
--- NOTE | 2020-05-25 11:21 | P.PNNP_ITS ---
Subjective Subjective Date of Service: 05/25/20 Interval history: Events noted. All recent data reviewed Physical Exam Vital Signs: Vital Signs: Last Vital Signs Temp 96.6 F L 05/25/20 11:00 Pulse 71 05/25/20 11:00 Resp 17 05/25/20 11:00 BP 128/54 L 05/25/20 11:00 Pulse Ox 94 05/25/20 11:00 Body Mass Index 44.7 Const: General: No no acute distress Neck: Neck: Yes supple Resp: Auscultation: diminished lung sounds Cardio: Rate: regular rate GI: Palpation (GI): Soft to palpation Objective Data Labs CBC & Chem 7: 05/25/20 05:35 05/25/20 05:35 Labs: Laboratory Results - last 24 hr 05/22/20 05/22/20 05/24/20 12:18 12:18 11:49 WBC RBC Hgb Hct MCV MCH MCHC RDW Plt Count MPV Immature Gran % (Auto) Neut % (Auto) Lymph % (Auto) [place] % (Auto) Eos % (Auto) Baso % (Auto) Lymph # (Auto) [place] # (Auto) Eos # (Auto) Baso # (Auto) Abs Immat Gran (auto) Absolute Neuts (auto) Absolute Nucleated RBC Nucleated RBC % (auto) Smear Tech's Comments PT INR APTT D-Dimer O2 Saturation ABG pH at Pt Temp ABG pH (Temp Correct) ABG pCO2 at Pt Temp ABG pCO2 (Temp Corrct ABG pO2 at Pt Temp ABG pO2 (Temp Correct ABG HCO3 ABG Base Excess (Actual) VBG pH VBG pCO2 VBG pO2 VBG HCO3 VBG O2 Saturation VBG Base Excess Sodium Potassium Chloride Carbon Dioxide Anion Gap BUN Creatinine Estim Creat Clear Calc Estimated GFR POC Glucose 186 H Random Glucose Calcium Phosphorus Magnesium Total Bilirubin Direct Bilirubin AST ALT Alkaline Phosphatase B-Natriuretic Peptide Total Protein Albumin Proteinase 3 (PR3) Ab <1.0 Myeloperoxidase Ab <1.0 Anti-Cardiolipin IgG Ab 44 H Anti-Cardiolipin IgM Ab <12 05/24/20 05/24/20 05/25/20 17:47 23:51 05:35 WBC 7.4 RBC 2.84 L Hgb 8.3 L Hct 26.9 L MCV 94.7 MCH 29.2 MCHC 30.9 L RDW 16.6 H Plt Count 395 MPV 10.8 Immature Gran % (Auto) 0.7 H Neut % (Auto) 93.0 H Lymph % (Auto) 4.4 L [place] % (Auto) 1.9 L Eos % (Auto) 0.0 Baso % (Auto) 0.0 Lymph # (Auto) 0.3 L [place] # (Auto) 0.1 Eos # (Auto) 0.0 Baso # (Auto) 0.0 Abs Immat Gran (auto) 0.05 H Absolute Neuts (auto) 6.8 Absolute Nucleated RBC 0.000 Nucleated RBC % (auto) 0.0 Smear Tech's Comments VERIFIED PT INR APTT D-Dimer O2 Saturation ABG pH at Pt Temp ABG pH (Temp Correct) ABG pCO2 at Pt Temp ABG pCO2 (Temp Corrct ABG pO2 at Pt Temp ABG pO2 (Temp Correct ABG HCO3 ABG Base Excess (Actual) VBG pH VBG pCO2 VBG pO2 VBG HCO3 VBG O2 Saturation VBG Base Excess Sodium Potassium Chloride Carbon Dioxide Anion Gap BUN Creatinine Estim Creat Clear Calc Estimated GFR POC Glucose 191 H 184 H Random Glucose Calcium Phosphorus Magnesium Total Bilirubin Direct Bilirubin AST ALT Alkaline Phosphatase B-Natriuretic Peptide Total Protein Albumin Proteinase 3 (PR3) Ab Myeloperoxidase Ab Anti-Cardiolipin IgG Ab Anti-Cardiolipin IgM Ab 05/25/20 05/25/20 05/25/20 05:35 05:35 05:35 WBC RBC Hgb Hct MCV MCH MCHC RDW Plt Count MPV Immature Gran % (Auto) Neut % (Auto) Lymph % (Auto) [place] % (Auto) Eos % (Auto) Baso % (Auto) Lymph # (Auto) [place] # (Auto) Eos # (Auto) Baso # (Auto) Abs Immat Gran (auto) Absolute Neuts (auto) Absolute Nucleated RBC Nucleated RBC % (auto) Smear Tech's Comments PT 12.5 INR 1.1 APTT 34.3 D-Dimer 2201 O2 Saturation ABG pH at Pt Temp ABG pH (Temp Correct) ABG pCO2 at Pt Temp ABG pCO2 (Temp Corrct ABG pO2 at Pt Temp ABG pO2 (Temp Correct ABG HCO3 ABG Base Excess (Actual) VBG pH VBG pCO2 VBG pO2 VBG HCO3 VBG O2 Saturation VBG Base Excess Sodium 143 Potassium 5.2 H Chloride 111 H Carbon Dioxide 21 L Anion Gap 16 BUN 97 H* Creatinine 2.28 H Estim Creat Clear Calc 33.8 Estimated GFR 28 POC Glucose Random Glucose 235 H Calcium 8.4 Phosphorus 4.7 H Magnesium 3.6 H* Total Bilirubin 0.3 Direct Bilirubin 0.2 AST 16 ALT 30 Alkaline Phosphatase 67 B-Natriuretic Peptide 199 H Total Protein 7.5 Albumin 3.1 L Proteinase 3 (PR3) Ab Myeloperoxidase Ab Anti-Cardiolipin IgG Ab Anti-Cardiolipin IgM Ab 05/25/20 05/25/20 05/25/20 05:46 05:49 06:21 WBC RBC Hgb Hct MCV MCH MCHC RDW Plt Count MPV Immature Gran % (Auto) Neut % (Auto) Lymph % (Auto) [place] % (Auto) Eos % (Auto) Baso % (Auto) Lymph # (Auto) [place] # (Auto) Eos # (Auto) Baso # (Auto) Abs Immat Gran (auto) Absolute Neuts (auto) Absolute Nucleated RBC Nucleated RBC % (auto) Smear Tech's Comments PT INR APTT D-Dimer O2 Saturation TNP ABG pH at Pt Temp TNP ABG pH (Temp Correct) TNP ABG pCO2 at Pt Temp TNP ABG pCO2 (Temp Corrct TNP ABG pO2 at Pt Temp TNP ABG pO2 (Temp Correct TNP ABG HCO3 TNP ABG Base Excess (Actual) TNP VBG pH 7.36 VBG pCO2 38 VBG pO2 126 VBG HCO3 21 L VBG O2 Saturation 96.0 VBG Base Excess -3.1 Sodium Potassium Chloride Carbon Dioxide Anion Gap BUN Creatinine Estim Creat Clear Calc Estimated GFR POC Glucose 199 H Random Glucose Calcium Phosphorus Magnesium Total Bilirubin Direct Bilirubin AST ALT Alkaline Phosphatase B-Natriuretic Peptide Total Protein Albumin Proteinase 3 (PR3) Ab Myeloperoxidase Ab Anti-Cardiolipin IgG Ab Anti-Cardiolipin IgM Ab Microbiology Microbiology Results: Microbiology 05/21/20 22:50 Sputum - Suctioned Gram Stain - Final 05/21/20 22:50 Sputum - Suctioned Sputum Culture - Final No growth. 05/21/20 21:00 Sacrum Gram Stain - Final 05/21/20 21:00 Sacrum Routine Culture - Final Pseudomonas aeruginosa Klebsiella pneumoniae 05/22/20 00:14 Blood - Venous Blood Culture - Preliminary No growth after 48 hours. 05/22/20 00:18 Blood - Venous Blood Culture - Preliminary No growth after 48 hours. 05/22/20 00:27 Urine Catheterized - Fermin Catheter Urine Culture - Final No growth. 05/16/20 12:30 Cerebrospinal Fluid Gram Stain - Final 05/16/20 12:30 Cerebrospinal Fluid CSF Examination - Final 05/16/20 12:30 Cerebrospinal Fluid Fluid Description - Final 05/16/20 12:30 Cerebrospinal Fluid CSF Culture - Final No growth after 3 days. 05/06/20 14:27 Blood - Venous Blood Culture - Final No growth after 5 days. 05/06/20 14:24 Blood - Venous Blood Culture - Final No growth after 5 days. Assessment & Plan Assessment and plan (1) Acute renal failure: Problem details: Non oliguric JETT due to ATN Has baseline CKD 3 Renal functions fairly stable Urine output good No indication for renal replacement Shall continue current supportive care Labs AM. Shall follow closely Status: Acute Time Spent With Patient Time: Total time spent is greater than 50% in coordination of care (as documented) at patient's floor/unit and/or counseling patient:
[2020-05-25 11:45] LABS: Glucose, Whole Blood 156 mg/dL (60-115)
--- NOTE | 2020-05-25 12:50 | MHC.CLN ---
F/U CONTINUE CURRENT TF MONITOR TOLERANCE, RESIDUALS AND LYTES FOLLOWING
--- NOTE | 2020-05-25 12:52 | P.PNCC_ITS ---
Subjective Subjective Date of Service: 05/25/20 Interval History: 74-year-old male admitted with progressive alteration of mental status superimposed on chronic loss of gait with what appeared to be clinical sepsis and cellulitis with excellent healing response of his scan and systemic improvement including his acute on chronic stage IV now stage III renal failure but persistent delirium and now making slow progress in the resolution of that encephalopathy but still intubated almost 2 weeks and has a very large decubitus which is midline currently growing mixed g negatives including Klebsiella and Pseudomonas Physical Exam Vital Signs: Vital Signs: Last Vital Signs Temp 97.9 F 05/25/20 12:00 Pulse 69 05/25/20 12:00 Resp 18 05/25/20 12:00 BP 114/49 L 05/25/20 12:00 Pulse Ox 94 05/25/20 12:00 Body Mass Index 44.7 Const: Other: Today he open his eyes to command still withdrawing both upper extremities Of afebrile with stable vital signs in sinus rhythm and creatinine now down to 2.28 but BUN still at 97 but he is guaiac negative and has a not reflecting GI bleeding Cardiac exam with no gallops nor murmurs and has good bilateral carotid upstrokes Skin of lower extremities healing and buttock wound is being debrided Objective Data Labs CBC & Chem 7: 05/25/20 05:35 05/25/20 05:35 Labs: Laboratory Results - last 24 hr 05/22/20 05/22/20 05/24/20 12:18 12:18 17:47 WBC RBC Hgb Hct MCV MCH MCHC RDW Plt Count MPV Immature Gran % (Auto) Neut % (Auto) Lymph % (Auto) [place] % (Auto) Eos % (Auto) Baso % (Auto) Lymph # (Auto) [place] # (Auto) Eos # (Auto) Baso # (Auto) Abs Immat Gran (auto) Absolute Neuts (auto) Absolute Nucleated RBC Nucleated RBC % (auto) Smear Tech's Comments PT INR APTT D-Dimer O2 Saturation ABG pH at Pt Temp ABG pH (Temp Correct) ABG pCO2 at Pt Temp ABG pCO2 (Temp Corrct ABG pO2 at Pt Temp ABG pO2 (Temp Correct ABG HCO3 ABG Base Excess (Actual) VBG pH VBG pCO2 VBG pO2 VBG HCO3 VBG O2 Saturation VBG Base Excess Sodium Potassium Chloride Carbon Dioxide Anion Gap BUN Creatinine Estim Creat Clear Calc Estimated GFR POC Glucose 191 H Random Glucose Calcium Phosphorus Magnesium Total Bilirubin Direct Bilirubin AST ALT Alkaline Phosphatase B-Natriuretic Peptide Total Protein Albumin Proteinase 3 (PR3) Ab <1.0 Myeloperoxidase Ab <1.0 Anti-Cardiolipin IgG Ab 44 H Anti-Cardiolipin IgM Ab <12 05/24/20 05/25/20 05/25/20 23:51 05:35 05:35 WBC 7.4 RBC 2.84 L Hgb 8.3 L Hct 26.9 L MCV 94.7 MCH 29.2 MCHC 30.9 L RDW 16.6 H Plt Count 395 MPV 10.8 Immature Gran % (Auto) 0.7 H Neut % (Auto) 93.0 H Lymph % (Auto) 4.4 L [place] % (Auto) 1.9 L Eos % (Auto) 0.0 Baso % (Auto) 0.0 Lymph # (Auto) 0.3 L [place] # (Auto) 0.1 Eos # (Auto) 0.0 Baso # (Auto) 0.0 Abs Immat Gran (auto) 0.05 H Absolute Neuts (auto) 6.8 Absolute Nucleated RBC 0.000 Nucleated RBC % (auto) 0.0 Smear Tech's Comments VERIFIED PT 12.5 INR 1.1 APTT 34.3 D-Dimer 2201 O2 Saturation ABG pH at Pt Temp ABG pH (Temp Correct) ABG pCO2 at Pt Temp ABG pCO2 (Temp Corrct ABG pO2 at Pt Temp ABG pO2 (Temp Correct ABG HCO3 ABG Base Excess (Actual) VBG pH VBG pCO2 VBG pO2 VBG HCO3 VBG O2 Saturation VBG Base Excess Sodium Potassium Chloride Carbon Dioxide Anion Gap BUN Creatinine Estim Creat Clear Calc Estimated GFR POC Glucose 184 H Random Glucose Calcium Phosphorus Magnesium Total Bilirubin Direct Bilirubin AST ALT Alkaline Phosphatase B-Natriuretic Peptide Total Protein Albumin Proteinase 3 (PR3) Ab Myeloperoxidase Ab Anti-Cardiolipin IgG Ab Anti-Cardiolipin IgM Ab 05/25/20 05/25/20 05/25/20 05:35 05:35 05:46 WBC RBC Hgb Hct MCV MCH MCHC RDW Plt Count MPV Immature Gran % (Auto) Neut % (Auto) Lymph % (Auto) [place] % (Auto) Eos % (Auto) Baso % (Auto) Lymph # (Auto) [place] # (Auto) Eos # (Auto) Baso # (Auto) Abs Immat Gran (auto) Absolute Neuts (auto) Absolute Nucleated RBC Nucleated RBC % (auto) Smear Tech's Comments PT INR APTT D-Dimer O2 Saturation TNP ABG pH at Pt Temp TNP ABG pH (Temp Correct) TNP ABG pCO2 at Pt Temp TNP ABG pCO2 (Temp Corrct TNP ABG pO2 at Pt Temp TNP ABG pO2 (Temp Correct TNP ABG HCO3 TNP ABG Base Excess (Actual) TNP VBG pH VBG pCO2 VBG pO2 VBG HCO3 VBG O2 Saturation VBG Base Excess Sodium 143 Potassium 5.2 H Chloride 111 H Carbon Dioxide 21 L Anion Gap 16 BUN 97 H* Creatinine 2.28 H Estim Creat Clear Calc 33.8 Estimated GFR 28 POC Glucose Random Glucose 235 H Calcium 8.4 Phosphorus 4.7 H Magnesium 3.6 H* Total Bilirubin 0.3 Direct Bilirubin 0.2 AST 16 ALT 30 Alkaline Phosphatase 67 B-Natriuretic Peptide 199 H Total Protein 7.5 Albumin 3.1 L Proteinase 3 (PR3) Ab Myeloperoxidase Ab Anti-Cardiolipin IgG Ab Anti-Cardiolipin IgM Ab 05/25/20 05/25/20 05/25/20 05:49 06:21 11:42 WBC RBC Hgb Hct MCV MCH MCHC RDW Plt Count MPV Immature Gran % (Auto) Neut % (Auto) Lymph % (Auto) [place] % (Auto) Eos % (Auto) Baso % (Auto) Lymph # (Auto) [place] # (Auto) Eos # (Auto) Baso # (Auto) Abs Immat Gran (auto) Absolute Neuts (auto) Absolute Nucleated RBC Nucleated RBC % (auto) Smear Tech's Comments PT INR APTT D-Dimer O2 Saturation ABG pH at Pt Temp ABG pH (Temp Correct) ABG pCO2 at Pt Temp ABG pCO2 (Temp Corrct ABG pO2 at Pt Temp ABG pO2 (Temp Correct ABG HCO3 ABG Base Excess (Actual) VBG pH 7.36 VBG pCO2 38 VBG pO2 126 VBG HCO3 21 L VBG O2 Saturation 96.0 VBG Base Excess -3.1 Sodium Potassium Chloride Carbon Dioxide Anion Gap BUN Creatinine Estim Creat Clear Calc Estimated GFR POC Glucose 199 H 156 H Random Glucose Calcium Phosphorus Magnesium Total Bilirubin Direct Bilirubin AST ALT Alkaline Phosphatase B-Natriuretic Peptide Total Protein Albumin Proteinase 3 (PR3) Ab Myeloperoxidase Ab Anti-Cardiolipin IgG Ab Anti-Cardiolipin IgM Ab Microbiology Microbiology Results: Microbiology 05/21/20 22:50 Sputum - Suctioned Gram Stain - Final 05/21/20 22:50 Sputum - Suctioned Sputum Culture - Final No growth. 05/21/20 21:00 Sacrum Gram Stain - Final 05/21/20 21:00 Sacrum Routine Culture - Final Pseudomonas aeruginosa Klebsiella pneumoniae 05/22/20 00:14 Blood - Venous Blood Culture - Preliminary No growth after 48 hours. 05/22/20 00:18 Blood - Venous Blood Culture - Preliminary No growth after 48 hours. 05/22/20 00:27 Urine Catheterized - Fermin Catheter Urine Culture - Final No growth. 05/16/20 12:30 Cerebrospinal Fluid Gram Stain - Final 05/16/20 12:30 Cerebrospinal Fluid CSF Examination - Final 05/16/20 12:30 Cerebrospinal Fluid Fluid Description - Final 05/16/20 12:30 Cerebrospinal Fluid CSF Culture - Final No growth after 3 days. 05/06/20 14:27 Blood - Venous Blood Culture - Final No growth after 5 days. 05/06/20 14:24 Blood - Venous Blood Culture - Final No growth after 5 days. 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 Shall follow closely Status: Acute (8) Acute respiratory failure with hypercapnia: Status: Acute (9) Anemia: Status: Acute (10) Encephalopathy: Problem details: There are no infectious causes evident at this time His ESR checked on request and is over 100 There is concern over giant cell arteritis/vasculitis Status: Acute (11) Hypoxemia requiring supplemental oxygen: Status: Acute (12) Acute metabolic encephalopathy: Status: Acute (13) Aspiration pneumonia: Status: Acute (14) CKD (chronic kidney disease), stage III: Status: Acute (15) Cellulitis: Problem details: resolved Status: Acute (16) Hypernatremia: Status: Acute Assessment and Plan: Slow signs of improvement in encephalopathy and discussion with family was willing to give more time to see if we could meaningful E wean him but asked for his comfort to be taking care of so I have replaced the propofol and I might consider dexmedetomidine an I may cover with some prophylactic doses of either Zosyn or meropenem for the mixed Gram-negative infection over his buttock in Time Spent With Patient Time: Total time spent is greater than 50% in coordination of care (as documented) at patient's floor/unit and/or counseling patient: Total time spent with greater than 50% in coordination of care (as documented) at patient's floor/unit and/or counseling patient:: 45
--- NOTE | 2020-05-25 15:44 | PM.EVENT ---
Event Note Date of Service: 05/25/20 Event Note: Pseudomonas skin and soft tissue wound although may be superficial is more susceptible to Merem than Piperacillin/Tazobactam Would only use for superficial cellulitis,one week or less
[2020-05-25 18:10] LABS: Glucose, Whole Blood 235 mg/dL (60-115)
--- NOTE | 2020-05-25 19:32 | PC.NURSE ---
ASSUMED CARE AT 0700. PATIENT WAS ON PROPOFOL 20 MCG/KG/MIN; HELD PROPOFOL AT 07:[address] DENT; HELD UNTIL 11:30, PATIENT WAS THRASHING HEAD BACK AND FORTH ENOUGH THAT TUBE TAMER WAS OUT OF POSITION IN HER MOUTH, RT CONTACTED AND REPLACED TUBE TAMER, PROPOFOL BACK ON AT 10, UPTIRATED GRADUALLY TO 30 MCG/KG/MIN, PATIENT THEN WAS HAVING SOME LOW MINUTE VOLUMES, AND MD AWARE, ORDERED PROPOFOL TO BE HELD AGAIN, AND IT HAS BEEN ON HOLD SINCE 17:30. PATIENT DISPLAYED NO PURPOSEFUL BEHAVIOR TODAY, HE RESPONDS TO LIGHT PAIN, RESISTS ORAL CARE, PERRL, POSITIVE COUGH AND GAG. COPIOUS ORAL CLEAR SECRETIONS AND MODERATE CLEAR INLINE SECRETIONS, SUCTIONED WITH GOOD EFFECT, DISCUSSED WITH MD AND RT AND MUCOMYST WAS DISCONTINUED. #7.5 ETT, 25 KRISTIN; PC SETTINGS PC 15; RATE 10; PEEP 5; FIO2 25%; SPO2 MID TO LOW 90'S. MINUTE VOLUMES ABOUT 9; TIDAL VOLUMES 300'S-400'S; HAS BEEN OVERBREATHING VENT AROUND 21-22 RPM; SOME ACCESSORY MUSCLE USE, MD AWARE AND THIS WAS RATIONALE FOR TEMPORARILY RESTARTING PROPOFOL. TIERNEY OUTPUTS 50-75 CC/HOUR, CONCENTRATED. GLUCERNA AT 60 CC/HOUR, H2O 240 CCS [id number], WELL TOLERATED AND PROMOTE 30 BID. NO BM TODAY, POSITIVE FLATUS. SODIUM BICARB TID STARTED TODAY R/T HYPERMAGNESMIA. MEROPENEM STARTED TODAY. PATIENT SLIGHTLY LOW TEMPERATURES: 96.7 RECTAL, THEN 97.3 ORAL.
[2020-05-25 22:17] LABS: ANA Titer 2 1:40 titer; Anti Nuclear Antibody Screen POSITIVE (NEGATIVE); Anti Nuclear Antibody Titer 1:40 titer
[2020-05-26] VITALS (35 sets, daily range): BP systolic 93–132; BP diastolic 36–68; PULSE 76–107; RESP 17–26; TEMP 35.9–37.6; O2SAT 91–99; BMI 45.5
[2020-05-26 00:11] LABS: Glucose, Whole Blood 154 mg/dL (60-115)
[2020-05-26] MEDS: Heparin Sodium,Porcine 5,000 UNIT/ML VIAL 5000 UNIT SUBCUT ×2 (00:31→07:41)
[2020-05-26] MEDS: 0.9 % Sodium Chloride Flush 3 ML SYRINGE IVFLUSH ×4 (00:32→21:06)
[2020-05-26] MEDS: Insulin Lispro 100 UNIT/ML 3 ML VIAL SUBCUT ×4 (00:32→18:19)
[2020-05-26] MEDS: Albuterol/Iprat 2.5/0.5MG 3 ML AMPUL.NEB INHALE ×6 (00:53→19:52)
[2020-05-26 06:04] LABS: Venous Blood Gas Refer to POC result
[2020-05-26 06:04] LABS: VBG Base Excess -1.8 mmol/L; VBG HCO3 22 mmol/L (22-26); VBG pCO2 34 mmHg; VBG pH 7.41 (7.32-7.43); VBG pO2 115 mmHg
[2020-05-26 06:20] LABS: Glucose, Whole Blood 200 mg/dL (60-115)
[2020-05-26 06:28] LABS: B Type Natriuretic Peptide 173 pg/mL (<100); Basophils Percent Auto 0.1 % (0-2); Hematocrit 28.6 % (42-52); Hemoglobin 8.9 g/dl (14.0-18.0); Imm Gran Abs Auto 0.13 X10*3/uL (0.00-0.03); Imm Gran Pct Auto 1.3 % (0.0-0.4); Lymphocytes Absolute Auto 0.4 X10*3/uL (1.2-4.9); Lymphocytes Percent Auto 3.9 % (20-40); MANUAL DIFF FLAG SCAN; Mean Corpuscular HGB Conc 31.1 g/dl (31.0-36.0); Mean Corpuscular Volume 93.2 fL (80-98); Mean Platelet Volume 11.1 fL (9.4-12.4); Monocytes Absolute Auto 0.2 X10*3/uL (0.1-1.2); Monocytes Percent Auto 1.6 % (2-11); Neutrophils Absolute Auto 9.4 X10*3/uL (2.0-8.3); Neutrophils Percent Auto 93.1 % (45-73); Platelet Count 394 X10*3/uL (160-400); Red Blood Count 3.07 X10*6/uL (4.60-5.80); Red Cell Distribution Width 16.5 % (11.0-16.0); SCAN SMEAR FLAG 1; White Blood Count 10.1 X10*3/uL (4.8-10.8)
[2020-05-26 06:31] LABS: Alanine Aminotransferase 30 U/L (0-40); Albumin Level 3.2 g/dL (3.5-5.0); Alkaline Phosphatase 69 U/L (39-117); Anion Gap 14 (12-20); Aspartate Amino Transferase 18 U/L (5-37); Bilirubin Direct 0.2 mg/dL (0.0-0.5); Bilirubin Total 0.3 mg/dL (0.0-1.0); Blood Urea Nitrogen 94 mg/dL (9-16); Calcium 8.3 mg/dL (8.4-10.2); Carbon Dioxide 21 mmol/L (22-29); Chloride 111 mmol/L (96-108); Estimated Glomerular Filt Rate 29; Glucose Random 240 mg/dL (60-115); Magnesium 3.5 mg/dL (1.6-2.6); Potassium 5.3 mmol/L (3.3-5.1); Sodium 141 mmol/L (135-145); Total Protein 7.5 g/dL (6.5-8.0)
[2020-05-26 07:07] LABS: INTERNATIONAL NORM RATIO 1.1 (0.9-1.1); Prothrombin Time 12.8 SEC (10.8-13.0)
[2020-05-26 07:10] LABS: Partial Thromboplastin Time 31.4 SEC (24.1-38.0)
[2020-05-26 07:18] LABS: D Dimer 2325 NG/ML
[2020-05-26 07:34] LABS: SLIDE REVIEW VERIFIED
[2020-05-26] MEDS: Thiamine HCL 100 MG TABLET PO (07:38)
[2020-05-26] MEDS: Sodium Bicarbonate 650 MG TABLET PO ×3 (07:38→21:05)
[2020-05-26] MEDS: Levothyroxine Sodium 125 MCG TABLET PO (07:38)
[2020-05-26] MEDS: Chlorhexidine Gluc Oral Rinse 15 ML MOUTHWASH BUCCAL ×3 (07:40→21:05)
[2020-05-26] MEDS: Famotidine/PF 20 MG/2 ML VIAL IVPUSH (07:40)
[2020-05-26] MEDS: Nystatin Powder 15 GM BOTTLE 1 APPL TOPICAL ×3 (07:42→21:06)
[2020-05-26] MEDS: Betamethasone Dip Aug 0.05% Cr 15 GM TUBE 1 APPL TOPICAL ×2 (07:42→21:05)
--- NOTE | 2020-05-26 09:50 | PM.PNNEP ---
Subjective Subjective Date of Service: 05/26/20 Interval history: seen and examined vented Physical Exam Vital Signs: Vital Signs: Last Vital Signs Temp 96.6 F L 05/26/20 09:00 Pulse 100 05/26/20 09:00 Resp 24 H 05/26/20 09:00 BP 114/44 L 05/26/20 09:00 Pulse Ox 95 05/26/20 09:00 Body Mass Index 45.5 Const: General: cooperative, ill appearing and other (Sedated on the vent); No no acute distress or acute distress Nutritional Appearance: obese HENMT: Head: Yes normal to inspection Mouth: Normal oral and palatal mucosa present Eyes: General: appearance normal, both eyes and all related structures Sclerae: sclerae normal EOM: EOMs intact bilaterally Neck: Neck: Yes no lymphadenopathy, Yes trachea midline, Yes supple and Yes no JVD Resp: Effort & Inspection: normal respiratory effort and no respiratory distress Auscultation: clear to auscultation bilaterally, crackles (Right basilar), rhonchi and diminished lung sounds Cardio: Jugular venous distension: no JVD Palpation: no palpable S3 Rate: regular rate Rhythm: regular rhythm Heart sounds: no gallops, no murmurs and no rubs GI: Palpation (GI): Soft to palpation, nontender and Other GI palpation findings present ( Nontender) Auscultation: normal bowel sounds Skin: Other: bilateral venous stasis changes,chronic legs General skin exam: no rashes or lesions noted Lesions: lesion noted and other (ulcer bekah and redness) Neuro: Motor exam (neuro): no asterixis Extrem: Other: Edema General: No clubbing, No cyanosis, No edema, Yes pedal edema (1+ bilateral) and Yes venous stasis dermatitis (Bilateral lower extremity) Objective Data Labs CBC & Chem 7: 05/26/20 05:55 05/26/20 05:55 Labs: Laboratory Results - last 24 hr 05/22/20 05/25/20 05/25/20 12:18 11:42 18:07 WBC RBC Hgb Hct MCV MCH MCHC RDW Plt Count MPV Immature Gran % (Auto) Neut % (Auto) Lymph % (Auto) [place] % (Auto) Eos % (Auto) Baso % (Auto) Lymph # (Auto) [place] # (Auto) Eos # (Auto) Baso # (Auto) Abs Immat Gran (auto) Absolute Neuts (auto) Absolute Nucleated RBC Nucleated RBC % (auto) Smear Tech's Comments PT INR APTT D-Dimer VBG pH VBG pCO2 VBG pO2 VBG HCO3 VBG O2 Saturation VBG Base Excess Sodium Potassium Chloride Carbon Dioxide Anion Gap BUN Creatinine Estim Creat Clear Calc Estimated GFR POC Glucose 156 H 235 H Random Glucose Calcium Phosphorus Magnesium Total Bilirubin Direct Bilirubin AST ALT Alkaline Phosphatase B-Natriuretic Peptide Total Protein Albumin SUN Screen POSITIVE A SUN Titer 1:40 H SUN Titer 2 1:40 H SUN Titer 3 1:80 H SUN Pattern A SUN Pattern 2 A SUN Pattern 3 A 05/26/20 05/26/20 05/26/20 00:06 05:55 05:55 WBC 10.1 RBC 3.07 L Hgb 8.9 L Hct 28.6 L MCV 93.2 MCH 29.0 MCHC 31.1 RDW 16.5 H Plt Count 394 MPV 11.1 Immature Gran % (Auto) 1.3 H Neut % (Auto) 93.1 H Lymph % (Auto) 3.9 L [place] % (Auto) 1.6 L Eos % (Auto) 0.0 Baso % (Auto) 0.1 Lymph # (Auto) 0.4 L [place] # (Auto) 0.2 Eos # (Auto) 0.0 Baso # (Auto) 0.0 Abs Immat Gran (auto) 0.13 H Absolute Neuts (auto) 9.4 H Absolute Nucleated RBC 0.000 Nucleated RBC % (auto) 0.0 Smear Tech's Comments VERIFIED PT 12.8 INR 1.1 APTT 31.4 D-Dimer 2325 VBG pH VBG pCO2 VBG pO2 VBG HCO3 VBG O2 Saturation VBG Base Excess Sodium Potassium Chloride Carbon Dioxide Anion Gap BUN Creatinine Estim Creat Clear Calc Estimated GFR POC Glucose 154 H Random Glucose Calcium Phosphorus Magnesium Total Bilirubin Direct Bilirubin AST ALT Alkaline Phosphatase B-Natriuretic Peptide Total Protein Albumin SUN Screen SUN Titer SUN Titer 2 SUN Titer 3 SUN Pattern SUN Pattern 2 SUN Pattern 3 05/26/20 05/26/20 05/26/20 05:55 05:55 05:57 WBC RBC Hgb Hct MCV MCH MCHC RDW Plt Count MPV Immature Gran % (Auto) Neut % (Auto) Lymph % (Auto) [place] % (Auto) Eos % (Auto) Baso % (Auto) Lymph # (Auto) [place] # (Auto) Eos # (Auto) Baso # (Auto) Abs Immat Gran (auto) Absolute Neuts (auto) Absolute Nucleated RBC Nucleated RBC % (auto) Smear Tech's Comments PT INR APTT D-Dimer VBG pH 7.41 VBG pCO2 34 VBG pO2 115 VBG HCO3 22 VBG O2 Saturation 97.0 VBG Base Excess -1.8 Sodium 141 Potassium 5.3 H Chloride 111 H Carbon Dioxide 21 L Anion Gap 14 BUN 94 H* Creatinine 2.23 H Estim Creat Clear Calc 35.0 Estimated GFR 29 POC Glucose Random Glucose 240 H Calcium 8.3 L Phosphorus 4.0 Magnesium 3.5 H* Total Bilirubin 0.3 Direct Bilirubin 0.2 AST 18 ALT 30 Alkaline Phosphatase 69 B-Natriuretic Peptide 173 H Total Protein 7.5 Albumin 3.2 L SUN Screen SUN Titer SUN Titer 2 SUN Titer 3 SUN Pattern SUN Pattern 2 SUN Pattern 3 05/26/20 06:15 WBC RBC Hgb Hct MCV MCH MCHC RDW Plt Count MPV Immature Gran % (Auto) Neut % (Auto) Lymph % (Auto) [place] % (Auto) Eos % (Auto) Baso % (Auto) Lymph # (Auto) [place] # (Auto) Eos # (Auto) Baso # (Auto) Abs Immat Gran (auto) Absolute Neuts (auto) Absolute Nucleated RBC Nucleated RBC % (auto) Smear Tech's Comments PT INR APTT D-Dimer VBG pH VBG pCO2 VBG pO2 VBG HCO3 VBG O2 Saturation VBG Base Excess Sodium Potassium Chloride Carbon Dioxide Anion Gap BUN Creatinine Estim Creat Clear Calc Estimated GFR POC Glucose 200 H Random Glucose Calcium Phosphorus Magnesium Total Bilirubin Direct Bilirubin AST ALT Alkaline Phosphatase B-Natriuretic Peptide Total Protein Albumin SUN Screen SUN Titer SUN Titer 2 SUN Titer 3 SUN Pattern SUN Pattern 2 SUN Pattern 3 Microbiology Microbiology Results: Microbiology 05/21/20 22:50 Sputum - Suctioned Gram Stain - Final 05/21/20 22:50 Sputum - Suctioned Sputum Culture - Final No growth. 05/21/20 21:00 Sacrum Gram Stain - Final 05/21/20 21:00 Sacrum Routine Culture - Final Pseudomonas aeruginosa Klebsiella pneumoniae 05/22/20 00:14 Blood - Venous Blood Culture - Preliminary No growth after 48 hours. 05/22/20 00:18 Blood - Venous Blood Culture - Preliminary No growth after 48 hours. 05/22/20 00:27 Urine Catheterized - Fermin Catheter Urine Culture - Final No growth. 05/16/20 12:30 Cerebrospinal Fluid Gram Stain - Final 05/16/20 12:30 Cerebrospinal Fluid CSF Examination - Final 05/16/20 12:30 Cerebrospinal Fluid Fluid Description - Final 05/16/20 12:30 Cerebrospinal Fluid CSF Culture - Final No growth after 3 days. 05/06/20 14:27 Blood - Venous Blood Culture - Final No growth after 5 days. 05/06/20 14:24 Blood - Venous Blood Culture - Final No growth after 5 days. Assessment & Plan Assessment and plan (1) JETT (acute kidney injury): Status: Acute (2) CKD (chronic kidney disease) stage 3, GFR 30-59 ml/min: Status: Acute Assessment and Plan: kidney function stable JETT due to acute tubular necrosis underlying CKD REC sodium bicarbonate sodium polystyrene as needed follow kidney function and electrolytes Time Spent With Patient Time: Total time spent is greater than 50% in coordination of care (as documented) at patient's floor/unit and/or counseling patient:
[2020-05-26 12:28] LABS: Glucose, Whole Blood 200 mg/dL (60-115)
--- NOTE | 2020-05-26 12:28 | PM.CCPN ---
Subjective Subjective Date of Service: 05/26/20 Interval History: 74-year-old male admitted for sepsis altered mental status which had progressed over several days prior to admission got worse during hospitalization while on clindamycin for what appeared to be cellulitis and following extubation had an aspiration event and acute hypoxic respiratory failure and was reintubated and has been now intubated for 2 weeks with persistent encephalopathy documented on EEG but no structural disease noted on MRI a repeat but he did have a sed rate of 115 and his SUN came back positive at 1 to 80 dilution and into looking for antiphospholipid syndrome anti cardiolipin came back greater than 40 implying at least a modest risk for in 0 4 coagulopathy and is currently beginning to follow simple command and opening eyes upon request but still remains very lethargic and still not quite giving us cognitive function This is on a 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 and then becoming wheelchair-bound noted to have some cervical spinal stenosis between C4 and C6 Currently having a decubitus over his buttocks that being debrided being covered with meropenem at least for several days worth of prophylaxis while being debrided and instead of DVT prophylaxis starting him on apixaban at renal doses of 2.5 mg q.12 renal function stable with stable degree however of azotemia stable hyperkalemia and hypermagnesemia Physical Exam Vital Signs: Vital Signs: Last Vital Signs Temp 98.6 F 05/26/20 12:00 Pulse 100 05/26/20 12:00 Resp 23 H 05/26/20 12:00 BP 115/55 L 05/26/20 12:00 Pulse Ox 95 05/26/20 12:00 Body Mass Index 45.5 Const: Other: He will open his eyes on command but very lethargic still no movement of his lower extremities Normal sinus rhythm and no neck vein distension and good bilateral carotid upstrokes with no bruits Chest on pressure control with 9 L minute ventilatory requirement and FiO2 stable at 25% Abdomen benign good bowel sounds and no organomegaly tolerating feedings Peripheral E lower extremities resolving persistent stasis dermatitis but no evidence of cellulitis Objective Data Labs CBC & Chem 7: 05/26/20 05:55 05/26/20 05:55 Labs: Laboratory Results - last 24 hr 05/22/20 05/25/20 05/26/20 12:18 18:07 00:06 WBC RBC Hgb Hct MCV MCH MCHC RDW Plt Count MPV Immature Gran % (Auto) Neut % (Auto) Lymph % (Auto) [place] % (Auto) Eos % (Auto) Baso % (Auto) Lymph # (Auto) [place] # (Auto) Eos # (Auto) Baso # (Auto) Abs Immat Gran (auto) Absolute Neuts (auto) Absolute Nucleated RBC Nucleated RBC % (auto) Smear Tech's Comments PT INR APTT D-Dimer VBG pH VBG pCO2 VBG pO2 VBG HCO3 VBG O2 Saturation VBG Base Excess Sodium Potassium Chloride Carbon Dioxide Anion Gap BUN Creatinine Estim Creat Clear Calc Estimated GFR POC Glucose 235 H 154 H Random Glucose Calcium Phosphorus Magnesium Total Bilirubin Direct Bilirubin AST ALT Alkaline Phosphatase B-Natriuretic Peptide Total Protein Albumin SUN Screen POSITIVE A SUN Titer 1:40 H SUN Titer 2 1:40 H SUN Titer 3 1:80 H SUN Pattern A SUN Pattern 2 A SUN Pattern 3 A 05/26/20 05/26/20 05/26/20 05:55 05:55 05:55 WBC 10.1 RBC 3.07 L Hgb 8.9 L Hct 28.6 L MCV 93.2 MCH 29.0 MCHC 31.1 RDW 16.5 H Plt Count 394 MPV 11.1 Immature Gran % (Auto) 1.3 H Neut % (Auto) 93.1 H Lymph % (Auto) 3.9 L Ramsey % (Auto) 1.6 L Eos % (Auto) 0.0 Baso % (Auto) 0.1 Lymph # (Auto) 0.4 L Ramsey # (Auto) 0.2 Eos # (Auto) 0.0 Baso # (Auto) 0.0 Abs Immat Gran (auto) 0.13 H Absolute Neuts (auto) 9.4 H Absolute Nucleated RBC 0.000 Nucleated RBC % (auto) 0.0 Smear Tech's Comments VERIFIED PT 12.8 INR 1.1 APTT 31.4 D-Dimer 2325 VBG pH VBG pCO2 VBG pO2 VBG HCO3 VBG O2 Saturation VBG Base Excess Sodium 141 Potassium 5.3 H Chloride 111 H Carbon Dioxide 21 L Anion Gap 14 BUN 94 H* Creatinine 2.23 H Estim Creat Clear Calc 35.0 Estimated GFR 29 POC Glucose Random Glucose 240 H Calcium 8.3 L Phosphorus 4.0 Magnesium 3.5 H* Total Bilirubin 0.3 Direct Bilirubin 0.2 AST 18 ALT 30 Alkaline Phosphatase 69 B-Natriuretic Peptide Total Protein 7.5 Albumin 3.2 L SUN Screen SUN Titer SUN Titer 2 SUN Titer 3 SUN Pattern SUN Pattern 2 SUN Pattern 3 05/26/20 05/26/20 05/26/20 05:55 05:57 06:15 WBC RBC Hgb Hct MCV MCH MCHC RDW Plt Count MPV Immature Gran % (Auto) Neut % (Auto) Lymph % (Auto) Ramsey % (Auto) Eos % (Auto) Baso % (Auto) Lymph # (Auto) [place] # (Auto) Eos # (Auto) Baso # (Auto) Abs Immat Gran (auto) Absolute Neuts (auto) Absolute Nucleated RBC Nucleated RBC % (auto) Smear Tech's Comments PT INR APTT D-Dimer VBG pH 7.41 VBG pCO2 34 VBG pO2 115 VBG HCO3 22 VBG O2 Saturation 97.0 VBG Base Excess -1.8 Sodium Potassium Chloride Carbon Dioxide Anion Gap BUN Creatinine Estim Creat Clear Calc Estimated GFR POC Glucose 200 H Random Glucose Calcium Phosphorus Magnesium Total Bilirubin Direct Bilirubin AST ALT Alkaline Phosphatase B-Natriuretic Peptide 173 H Total Protein Albumin SUN Screen SUN Titer SUN Titer 2 SNU Titer 3 SUN Pattern SUN Pattern 2 SUN Pattern 3 Microbiology Microbiology Results: Microbiology 05/21/20 22:50 Sputum - Suctioned Gram Stain - Final 05/21/20 22:50 Sputum - Suctioned Sputum Culture - Final No growth. 05/21/20 21:00 Sacrum Gram Stain - Final 05/21/20 21:00 Sacrum Routine Culture - Final Pseudomonas aeruginosa Klebsiella pneumoniae 05/22/20 00:14 Blood - Venous Blood Culture - Preliminary No growth after 48 hours. 05/22/20 00:18 Blood - Venous Blood Culture - Preliminary No growth after 48 hours. 05/22/20 00:27 Urine Catheterized - Fermin Catheter Urine Culture - Final No growth. 05/16/20 12:30 Cerebrospinal Fluid Gram Stain - Final 05/16/20 12:30 Cerebrospinal Fluid CSF Examination - Final 05/16/20 12:30 Cerebrospinal Fluid Fluid Description - Final 05/16/20 12:30 Cerebrospinal Fluid CSF Culture - Final No growth after 3 days. 05/06/20 14:27 Blood - Venous Blood Culture - Final No growth after 5 days. 05/06/20 14:24 Blood - Venous Blood Culture - Final No growth after 5 days. 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 Shall follow closely Status: Acute (10) Acute respiratory failure with hypercapnia: Status: Acute (11) Anemia: Status: Acute (12) Encephalopathy: Problem details: There are no infectious causes evident at this time His ESR checked on request and is over 100 There is concern over giant cell arteritis/vasculitis Status: Acute (13) Hypoxemia requiring supplemental oxygen: Status: Acute (14) Acute metabolic encephalopathy: Status: Acute (15) Aspiration pneumonia: Status: Acute (16) CKD (chronic kidney disease), stage III: Status: Acute (17) Hypernatremia: Status: Acute (18) Cellulitis: Problem details: resolved cellulitis and currently resolving encephalopathy and with the elevated sed rate and positive SUN and but clinically could be interpreted as antiphospholipid syndrome I will maintain Decadron and add appropriate dose apixaban and once cognitive function is demonstrably improved will which simply placed on pressure support and try to wean the ventilator Status: Acute Assessment and Plan: As above under problem details Time Spent With Patient Time: Total time spent is greater than 50% in coordination of care (as documented) at patient's floor/unit and/or counseling patient: Total time spent with greater than 50% in coordination of care (as documented) at patient's floor/unit and/or counseling patient:: 35
--- NOTE | 2020-05-26 18:28 | PC.NURSE ---
Pt occasionally opens eyes to voice, makes non purposeful movements, occasionally withdraws from pain. Pt off sedation. Afebrile, VSS. Vent settings the same, satting 94-96%, suctioned thin clear secreations. U/O wnl, tube feeting glucerna at 60ml/hr, free water 240 q4hr, and pro source given BID. Wound on coccyz packed, foam c/d/i. pt repo q2hr, prevalon mattress, and airloss bed used. Family updated via phone with daily plan.
[2020-05-26 18:41] LABS: Glucose, Whole Blood 170 mg/dL (60-115)
[2020-05-26] MEDS: Apixaban 2.5 MG TABLET PO (21:05)
[2020-05-27] VITALS (36 sets, daily range): BP systolic 104–135; BP diastolic 48–79; PULSE 80–113; RESP 13–24; TEMP 35.9–37.6; O2SAT 92–99; BMI 44.7
[2020-05-27] MEDS: Albuterol/Iprat 2.5/0.5MG 3 ML AMPUL.NEB INHALE ×6 (00:09→20:30)
[2020-05-27 00:37] LABS: Glucose, Whole Blood 155 mg/dL (60-115)
[2020-05-27 05:18] LABS: Glucose, Whole Blood 160 mg/dL (60-115)
[2020-05-27] MEDS: Insulin Lispro 100 UNIT/ML 3 ML VIAL SUBCUT ×3 (05:20→18:09)
[2020-05-27 05:51] LABS: MANUAL DIFF FLAG NO
[2020-05-27 05:56] LABS: VBG Base Excess -0.1 mmol/L; VBG HCO3 23 mmol/L (22-26); VBG pCO2 34 mmHg; VBG pH 7.43 (7.32-7.43); VBG pO2 95 mmHg
[2020-05-27 05:57] LABS: Venous Blood Gas Refer to POC result
[2020-05-27 06:00] LABS: Basophils Percent Auto 0.1 % (0-2); Hematocrit 27.7 % (42-52); Hemoglobin 8.6 g/dl (14.0-18.0); Imm Gran Abs Auto 0.12 X10*3/uL (0.00-0.03); Imm Gran Pct Auto 1.3 % (0.0-0.4); Lymphocytes Absolute Auto 0.8 X10*3/uL (1.2-4.9); Lymphocytes Percent Auto 8.7 % (20-40); Mean Corpuscular Hemoglobin 29.3 pg (27.0-33.0); Mean Corpuscular Volume 94.2 fL (80-98); Mean Platelet Volume 10.9 fL (9.4-12.4); Monocytes Absolute Auto 0.7 X10*3/uL (0.1-1.2); Neutrophils Absolute Auto 7.9 X10*3/uL (2.0-8.3); Neutrophils Percent Auto 82.9 % (45-73); Platelet Count 369 X10*3/uL (160-400); Red Blood Count 2.94 X10*6/uL (4.60-5.80); Red Cell Distribution Width 16.7 % (11.0-16.0); White Blood Count 9.6 X10*3/uL (4.8-10.8)
[2020-05-27 06:09] LABS: INTERNATIONAL NORM RATIO 1.1 (0.9-1.1); Prothrombin Time 12.5 SEC (10.8-13.0)
[2020-05-27 06:12] LABS: Partial Thromboplastin Time 26.9 SEC (24.1-38.0)
[2020-05-27 06:22] LABS: D Dimer 2755 NG/ML
[2020-05-27 06:30] LABS: B Type Natriuretic Peptide 221 pg/mL (<100)
[2020-05-27 06:32] LABS: Alanine Aminotransferase 27 U/L (0-40); Albumin Level 3.1 g/dL (3.5-5.0); Alkaline Phosphatase 61 U/L (39-117); Anion Gap 14 (12-20); Aspartate Amino Transferase 16 U/L (5-37); Bilirubin Direct 0.2 mg/dL (0.0-0.5); Bilirubin Total 0.4 mg/dL (0.0-1.0); Blood Urea Nitrogen 90 mg/dL (9-16); Calcium 8.3 mg/dL (8.4-10.2); Carbon Dioxide 23 mmol/L (22-29); Chloride 113 mmol/L (96-108); Creatinine Clr Calc Pharmacy 35.8; Estimated Glomerular Filt Rate 30; Glucose Random 167 mg/dL (60-115); Magnesium 3.3 mg/dL (1.6-2.6); Phosphorus 3.2 mg/dL (2.7-4.5); Sodium 145 mmol/L (135-145); Total Protein 7.2 g/dL (6.5-8.0)
[2020-05-27] MEDS: Famotidine/PF 20 MG/2 ML VIAL IVPUSH (07:47)
[2020-05-27] MEDS: Apixaban 2.5 MG TABLET PO ×2 (07:47→21:47)
[2020-05-27] MEDS: Chlorhexidine Gluc Oral Rinse 15 ML MOUTHWASH BUCCAL ×3 (07:47→21:47)
[2020-05-27] MEDS: Betamethasone Dip Aug 0.05% Cr 15 GM TUBE 1 APPL TOPICAL ×2 (07:47→21:47)
[2020-05-27] MEDS: Levothyroxine Sodium 125 MCG TABLET PO (07:47)
[2020-05-27] MEDS: Thiamine HCL 100 MG TABLET PO (07:47)
[2020-05-27] MEDS: Sodium Bicarbonate 650 MG TABLET PO ×3 (07:47→21:47)
[2020-05-27] MEDS: 0.9 % Sodium Chloride Flush 3 ML SYRINGE IVFLUSH ×2 (07:48→15:57)
[2020-05-27] MEDS: Nystatin Powder 15 GM BOTTLE 1 APPL TOPICAL ×3 (07:48→21:47)
--- NOTE | 2020-05-27 08:42 | P.PNNP_ITS ---
Subjective Subjective Date of Service: 05/27/20 Interval history: seen and examined vented Physical Exam Vital Signs: Vital Signs: Last Vital Signs Temp 99.0 F 05/27/20 08:00 Pulse 100 05/27/20 08:00 Resp 22 H 05/27/20 08:00 BP 113/53 L 05/27/20 08:00 Pulse Ox 95 05/27/20 08:00 Body Mass Index 44.7 Const: General: ill appearing and other (Sedated on the vent); No no acute distress or acute distress Nutritional Appearance: obese HENMT: Head: Yes normal to inspection Mouth: Normal oral and palatal mucosa present Eyes: General: appearance normal, both eyes and all related structures EOM: EOMs intact bilaterally Neck: Neck: Yes no lymphadenopathy, Yes trachea midline, Yes supple and Yes no JVD Resp: Effort & Inspection: normal respiratory effort and no respiratory distress Auscultation: clear to auscultation bilaterally and diminished lung sounds Cardio: Jugular venous distension: no JVD Rate: regular rate Rhythm: regular rhythm Heart sounds: no gallops, no murmurs and no rubs GI: Palpation (GI): Soft to palpation, nontender and Other GI palpation findings present ( Nontender) Auscultation: normal bowel sounds Skin: Other: bilateral venous stasis changes,chronic legs General skin exam: no rashes or lesions noted Lesions: lesion noted and other (ulcer bekah and redness) Neuro: Motor exam (neuro): no asterixis Extrem: Other: Edema General: No clubbing, No cyanosis, No edema, Yes pedal edema (1+ bilateral) and Yes venous stasis dermatitis (Bilateral lower extremity) Objective Data Labs CBC & Chem 7: 05/27/20 05:39 05/27/20 05:39 Labs: Laboratory Results - last 24 hr 05/26/20 05/26/20 05/27/20 12:13 18:15 00:33 WBC RBC Hgb Hct MCV MCH MCHC RDW Plt Count MPV Immature Gran % (Auto) Neut % (Auto) Lymph % (Auto) [place] % (Auto) Eos % (Auto) Baso % (Auto) Lymph # (Auto) [place] # (Auto) Eos # (Auto) Baso # (Auto) Abs Immat Gran (auto) Absolute Neuts (auto) Absolute Nucleated RBC Nucleated RBC % (auto) PT INR APTT D-Dimer VBG pH VBG pCO2 VBG pO2 VBG HCO3 VBG O2 Saturation VBG Base Excess Sodium Potassium Chloride Carbon Dioxide Anion Gap BUN Creatinine Estim Creat Clear Calc Estimated GFR POC Glucose 200 H 170 H 155 H Random Glucose Calcium Phosphorus Magnesium Total Bilirubin Direct Bilirubin AST ALT Alkaline Phosphatase B-Natriuretic Peptide Total Protein Albumin 05/27/20 05/27/20 05/27/20 05:14 05:39 05:39 WBC 9.6 RBC 2.94 L Hgb 8.6 L Hct 27.7 L MCV 94.2 MCH 29.3 MCHC 31.0 RDW 16.7 H Plt Count 369 MPV 10.9 Immature Gran % (Auto) 1.3 H Neut % (Auto) 82.9 H Lymph % (Auto) 8.7 L [place] % (Auto) 7.0 Eos % (Auto) 0.0 Baso % (Auto) 0.1 Lymph # (Auto) 0.8 L [place] # (Auto) 0.7 Eos # (Auto) 0.0 Baso # (Auto) 0.0 Abs Immat Gran (auto) 0.12 H Absolute Neuts (auto) 7.9 Absolute Nucleated RBC 0.000 Nucleated RBC % (auto) 0.0 PT 12.5 INR 1.1 APTT 26.9 D-Dimer 2755 VBG pH VBG pCO2 VBG pO2 VBG HCO3 VBG O2 Saturation VBG Base Excess Sodium Potassium Chloride Carbon Dioxide Anion Gap BUN Creatinine Estim Creat Clear Calc Estimated GFR POC Glucose 160 H Random Glucose Calcium Phosphorus Magnesium Total Bilirubin Direct Bilirubin AST ALT Alkaline Phosphatase B-Natriuretic Peptide Total Protein Albumin 05/27/20 05/27/20 05/27/20 05:39 05:39 05:50 WBC RBC Hgb Hct MCV MCH MCHC RDW Plt Count MPV Immature Gran % (Auto) Neut % (Auto) Lymph % (Auto) [place] % (Auto) Eos % (Auto) Baso % (Auto) Lymph # (Auto) [place] # (Auto) Eos # (Auto) Baso # (Auto) Abs Immat Gran (auto) Absolute Neuts (auto) Absolute Nucleated RBC Nucleated RBC % (auto) PT INR APTT D-Dimer VBG pH 7.43 VBG pCO2 34 VBG pO2 95 VBG HCO3 23 VBG O2 Saturation 96.0 VBG Base Excess -0.1 Sodium 145 Potassium 5.0 Chloride 113 H Carbon Dioxide 23 Anion Gap 14 BUN 90 H* Creatinine 2.16 H Estim Creat Clear Calc 35.8 Estimated GFR 30 POC Glucose Random Glucose 167 H Calcium 8.3 L Phosphorus 3.2 Magnesium 3.3 H Total Bilirubin 0.4 Direct Bilirubin 0.2 AST 16 ALT 27 Alkaline Phosphatase 61 B-Natriuretic Peptide 221 H Total Protein 7.2 Albumin 3.1 L Microbiology Microbiology Results: Microbiology 05/22/20 00:14 Blood - Venous Blood Culture - Final No growth after 5 days. 05/22/20 00:18 Blood - Venous Blood Culture - Final No growth after 5 days. 05/21/20 22:50 Sputum - Suctioned Gram Stain - Final 05/21/20 22:50 Sputum - Suctioned Sputum Culture - Final No growth. 05/21/20 21:00 Sacrum Gram Stain - Final 05/21/20 21:00 Sacrum Routine Culture - Final Pseudomonas aeruginosa Klebsiella pneumoniae 05/22/20 00:27 Urine Catheterized - Fermin Catheter Urine Culture - Final No growth. 05/16/20 12:30 Cerebrospinal Fluid Gram Stain - Final 05/16/20 12:30 Cerebrospinal Fluid CSF Examination - Final 05/16/20 12:30 Cerebrospinal Fluid Fluid Description - Final 05/16/20 12:30 Cerebrospinal Fluid CSF Culture - Final No growth after 3 days. 05/06/20 14:27 Blood - Venous Blood Culture - Final No growth after 5 days. 05/06/20 14:24 Blood - Venous Blood Culture - Final No growth after 5 days. Assessment & Plan Assessment and plan (1) JETT (acute kidney injury): Status: Acute (2) CKD (chronic kidney disease) stage 3, GFR 30-59 ml/min: Status: Acute Assessment and Plan: kidney function stable JETT due to acute tubular necrosis underlying CKD REC continue sodium bicarbonate supportive management per ICU follow kidney function and electrolytes Time Spent With Patient Time: Total time spent is greater than 50% in coordination of care (as documented) at patient's floor/unit and/or counseling patient:
[2020-05-27] MEDS: HYDROmorphone HCl 0.5 MG/0.5 ML SYRINGE IVPUSH (09:20)
--- NOTE | 2020-05-27 12:54 | PM.CCPN ---
Subjective Subjective Date of Service: 05/27/20 Interval History: 74-year-old presented with the altered mental status and treated with clindamycin for a presumed cellulitis left lower extremity and was found unresponsive with acute hypercarbic respiratory failure intubated than a brief attempted extubation eventually leaving him with a and again and altered mental status and aspiration pneumonia and transfer back down again to the ICU and he never has since reestablished any cognitive function But he has on occasion open his eyes to command most of the time sleeping a acting as though agitated by the tube and he does have a decubitus which is being debrided and which I am covering with meropenem at least during the 2 or 3 days of the debridement process and with his persistent loss of cognitive function but structurally normal brain on MRI and persistent encephalopathic pattern on his EEG his workup included a very elevated sedimentation rate of 115 positive SUN at a 1-80 dilution and positive 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 so in the modest risk area for thrombotic event so he is now on Eliquis on renal dose S and he is on Decadron at the outside chance that this altered mental status is part of an autoimmune process perhaps even antiphospholipid syndrome and that was the thinking behind the Decadron and then eventually the apixaban Physical Exam Vital Signs: Vital Signs: Last Vital Signs Temp 98.1 F 05/27/20 11:00 Pulse 95 05/27/20 12:00 Resp 16 05/27/20 12:00 BP 124/57 L 05/27/20 12:00 Pulse Ox 94 05/27/20 12:00 Body Mass Index 44.7 Const: Other: Currently arousable but still no cognitive function demonstrated and he has not moved his lower extremities but apparently this is part of a chronically progressive issue where he was remain ended to a wheelchair following limited ability to use a walker and apparently has severe cervical myelopathy Chest is 1st of all he is on pressure support at 15/5 with greater than 500 cc tidal volume and non L minute ventilation requirement but FiO2 only 25% and stable Cardiac exam stable with no gallops no murmurs and he has good bilateral carotid upstrokes Benign abdomen and accepting feedings with no organomegaly Sacral decubitus Objective Data Labs CBC & Chem 7: 05/27/20 05:39 05/27/20 05:39 Labs: Laboratory Results - last 24 hr 05/26/20 05/27/20 05/27/20 18:15 00:33 05:14 WBC RBC Hgb Hct MCV MCH MCHC RDW Plt Count MPV Immature Gran % (Auto) Neut % (Auto) Lymph % (Auto) [place] % (Auto) Eos % (Auto) Baso % (Auto) Lymph # (Auto) [place] # (Auto) Eos # (Auto) Baso # (Auto) Abs Immat Gran (auto) Absolute Neuts (auto) Absolute Nucleated RBC Nucleated RBC % (auto) PT INR APTT D-Dimer VBG pH VBG pCO2 VBG pO2 VBG HCO3 VBG O2 Saturation VBG Base Excess Sodium Potassium Chloride Carbon Dioxide Anion Gap BUN Creatinine Estim Creat Clear Calc Estimated GFR POC Glucose 170 H 155 H 160 H Random Glucose Calcium Phosphorus Magnesium Total Bilirubin Direct Bilirubin AST ALT Alkaline Phosphatase B-Natriuretic Peptide Total Protein Albumin 05/27/20 05/27/20 05/27/20 05:39 05:39 05:39 WBC 9.6 RBC 2.94 L Hgb 8.6 L Hct 27.7 L MCV 94.2 MCH 29.3 MCHC 31.0 RDW 16.7 H Plt Count 369 MPV 10.9 Immature Gran % (Auto) 1.3 H Neut % (Auto) 82.9 H Lymph % (Auto) 8.7 L [place] % (Auto) 7.0 Eos % (Auto) 0.0 Baso % (Auto) 0.1 Lymph # (Auto) 0.8 L [place] # (Auto) 0.7 Eos # (Auto) 0.0 Baso # (Auto) 0.0 Abs Immat Gran (auto) 0.12 H Absolute Neuts (auto) 7.9 Absolute Nucleated RBC 0.000 Nucleated RBC % (auto) 0.0 PT 12.5 INR 1.1 APTT 26.9 D-Dimer 2755 VBG pH VBG pCO2 VBG pO2 VBG HCO3 VBG O2 Saturation VBG Base Excess Sodium 145 Potassium 5.0 Chloride 113 H Carbon Dioxide 23 Anion Gap 14 BUN 90 H* Creatinine 2.16 H Estim Creat Clear Calc 35.8 Estimated GFR 30 POC Glucose Random Glucose 167 H Calcium 8.3 L Phosphorus 3.2 Magnesium 3.3 H Total Bilirubin 0.4 Direct Bilirubin 0.2 AST 16 ALT 27 Alkaline Phosphatase 61 B-Natriuretic Peptide Total Protein 7.2 Albumin 3.1 L 05/27/20 05/27/20 05:39 05:50 WBC RBC Hgb Hct MCV MCH MCHC RDW Plt Count MPV Immature Gran % (Auto) Neut % (Auto) Lymph % (Auto) [place] % (Auto) Eos % (Auto) Baso % (Auto) Lymph # (Auto) [place] # (Auto) Eos # (Auto) Baso # (Auto) Abs Immat Gran (auto) Absolute Neuts (auto) Absolute Nucleated RBC Nucleated RBC % (auto) PT INR APTT D-Dimer VBG pH 7.43 VBG pCO2 34 VBG pO2 95 VBG HCO3 23 VBG O2 Saturation 96.0 VBG Base Excess -0.1 Sodium Potassium Chloride Carbon Dioxide Anion Gap BUN Creatinine Estim Creat Clear Calc Estimated GFR POC Glucose Random Glucose Calcium Phosphorus Magnesium Total Bilirubin Direct Bilirubin AST ALT Alkaline Phosphatase B-Natriuretic Peptide 221 H Total Protein Albumin Microbiology Microbiology Results: Microbiology 05/22/20 00:14 Blood - Venous Blood Culture - Final No growth after 5 days. 05/22/20 00:18 Blood - Venous Blood Culture - Final No growth after 5 days. 05/21/20 22:50 Sputum - Suctioned Gram Stain - Final 05/21/20 22:50 Sputum - Suctioned Sputum Culture - Final No growth. 05/21/20 21:00 Sacrum Gram Stain - Final 05/21/20 21:00 Sacrum Routine Culture - Final Pseudomonas aeruginosa Klebsiella pneumoniae 05/22/20 00:27 Urine Catheterized - Fermin Catheter Urine Culture - Final No growth. 05/16/20 12:30 Cerebrospinal Fluid Gram Stain - Final 05/16/20 12:30 Cerebrospinal Fluid CSF Examination - Final 05/16/20 12:30 Cerebrospinal Fluid Fluid Description - Final 05/16/20 12:30 Cerebrospinal Fluid CSF Culture - Final No growth after 3 days. 05/06/20 14:27 Blood - Venous Blood Culture - Final No growth after 5 days. 05/06/20 14:24 Blood - Venous Blood Culture - Final No growth after 5 days. 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 Shall follow closely Status: Acute (10) Acute respiratory failure with hypercapnia: Status: Acute (11) Anemia: Status: Acute (12) Encephalopathy: Problem details: There are no infectious causes evident at this time His ESR checked on request and is over 100 There is concern over giant cell arteritis/vasculitis Status: Acute (13) Hypoxemia requiring supplemental oxygen: Status: Acute (14) Acute metabolic encephalopathy: Status: Acute (15) Aspiration pneumonia: Status: Acute (16) Cellulitis: Problem details: resolved cellulitis and currently resolving encephalopathy and with the elevated sed rate and positive SUN and but clinically could be interpreted as antiphospholipid syndrome I will maintain Decadron and add appropriate dose apixaban and once cognitive function is demonstrably improved will which simply placed on pressure support and try to wean the ventilator Status: Acute (17) CKD (chronic kidney disease), stage III: Status: Acute (18) Hypernatremia: Status: Acute Assessment and Plan: So we continue to wait and watch for any return of cognitive function and after speaking with the family should there be none by Thursday when he exceeds 2 weeks of intubation than they may want to extubate at that point but should there start to be some return of function and he simply needs more time and the progress looks positive they might consider tracheostomy for the long-term but if he actually achieve some degree of of cognitive function we might just be able to extubate with a good result and he may be able to protect his airway so that remains to be seen in the next 48 hours Time Spent With Patient Time: Total time spent is greater than 50% in coordination of care (as documented) at patient's floor/unit and/or counseling patient: Total time spent with greater than 50% in coordination of care (as documented) at patient's floor/unit and/or counseling patient:: 35
[2020-05-27 13:09] LABS: Glucose, Whole Blood 281 mg/dL (60-115)
[2020-05-27 18:03] LABS: Glucose, Whole Blood 170 mg/dL (60-115)
[2020-05-27 19:04] LABS: OBS Int Ctl Valid YES; OBS1 NEGATIVE (NEGATIVE)
--- NOTE | 2020-05-27 19:24 | PC.NURSE ---
Pt opening eyes more throughout day, no tracking noted, does not follow commands. Afebrile, VSS. Vent changed to PS 15/5, FIO2 25%, tidal volumes 400-500s. Pt tolerating well. Thin clear secretions noted. U/O wnl, had large BM, occult sent. tube feedings at 60ml/hr, free water 240ml q4hr and prosource BID. Bath given, dsg on buttocks changed. Repod q2hr, barrier cream, prevalon mattress, and airloss used. Family at bedside and updated.
[2020-05-28] VITALS (34 sets, daily range): BP systolic 98–132; BP diastolic 36–70; PULSE 23–116; RESP 13–23; TEMP 35.8–37.4; O2SAT 90–96; BMI 44.7
[2020-05-28 00:40] LABS: Glucose, Whole Blood 199 mg/dL (60-115)
[2020-05-28] MEDS: Albuterol/Iprat 2.5/0.5MG 3 ML AMPUL.NEB INHALE ×6 (00:40→19:34)
[2020-05-28] MEDS: Insulin Lispro 100 UNIT/ML 3 ML VIAL SUBCUT ×4 (01:29→18:39)
[2020-05-28] MEDS: 0.9 % Sodium Chloride Flush 3 ML SYRINGE IVFLUSH ×3 (01:30→18:39)
[2020-05-28 05:16] LABS: Glucose, Whole Blood 210 mg/dL (60-115)
[2020-05-28 05:52] LABS: Basophils Percent Auto 0.1 % (0-2); Hemoglobin 8.8 g/dl (14.0-18.0); Imm Gran Pct Auto 0.8 % (0.0-0.4); Lymphocytes Absolute Auto 0.3 X10*3/uL (1.2-4.9); Lymphocytes Percent Auto 2.4 % (20-40); MANUAL DIFF FLAG SCAN; Mean Corpuscular HGB Conc 31.4 g/dl (31.0-36.0); Mean Corpuscular Hemoglobin 29.3 pg (27.0-33.0); Mean Corpuscular Volume 93.3 fL (80-98); Monocytes Absolute Auto 0.3 X10*3/uL (0.1-1.2); Neutrophils Absolute Auto 12.5 X10*3/uL (2.0-8.3); Neutrophils Percent Auto 94.7 % (45-73); Platelet Count 328 X10*3/uL (160-400); Red Cell Distribution Width 16.3 % (11.0-16.0); SCAN SMEAR FLAG 1; White Blood Count 13.2 X10*3/uL (4.8-10.8)
[2020-05-28 05:55] LABS: VBG Base Excess -1.2 mmol/L; VBG HCO3 21 mmol/L (22-26); VBG pCO2 28 mmHg; VBG pH 7.48 (7.32-7.43); VBG pO2 97 mmHg
[2020-05-28 05:56] LABS: Venous Blood Gas Refer to POC result
[2020-05-28 05:58] LABS: INTERNATIONAL NORM RATIO 1.1 (0.9-1.1); Prothrombin Time 13.5 SEC (10.8-13.0)
[2020-05-28 06:01] LABS: Partial Thromboplastin Time 28.7 SEC (24.1-38.0)
[2020-05-28 06:10] LABS: SLIDE REVIEW VERIFIED
[2020-05-28 06:11] LABS: D Dimer 2875 NG/ML
[2020-05-28 06:22] LABS: Alanine Aminotransferase 25 U/L (0-40); Albumin Level 3.1 g/dL (3.5-5.0); Alkaline Phosphatase 58 U/L (39-117); Anion Gap 16 (12-20); Aspartate Amino Transferase 17 U/L (5-37); B Type Natriuretic Peptide 142 pg/mL (<100); Bilirubin Direct 0.2 mg/dL (0.0-0.5); Bilirubin Total 0.3 mg/dL (0.0-1.0); Blood Urea Nitrogen 91 mg/dL (9-16); Calcium 8.1 mg/dL (8.4-10.2); Carbon Dioxide 21 mmol/L (22-29); Chloride 113 mmol/L (96-108); Creatinine Clr Calc Pharmacy 36.6; Estimated Glomerular Filt Rate 31; Glucose Random 240 mg/dL (60-115); Magnesium 3.2 mg/dL (1.6-2.6); Phosphorus 3.7 mg/dL (2.7-4.5); Potassium 5.4 mmol/L (3.3-5.1); Sodium 145 mmol/L (135-145)
[2020-05-28 06:48] LABS: Glucose, Whole Blood 203 mg/dL (60-115)
[2020-05-28] MEDS: Chlorhexidine Gluc Oral Rinse 15 ML MOUTHWASH BUCCAL ×3 (10:29→21:07)
[2020-05-28] MEDS: Famotidine/PF 20 MG/2 ML VIAL IVPUSH (10:29)
[2020-05-28] MEDS: Sodium Bicarbonate 650 MG TABLET PO ×3 (10:29→21:07)
[2020-05-28] MEDS: Thiamine HCL 100 MG TABLET PO (10:29)
[2020-05-28] MEDS: Apixaban 2.5 MG TABLET PO (10:30)
[2020-05-28] MEDS: Nystatin Powder 15 GM BOTTLE 1 APPL TOPICAL ×3 (10:30→21:07)
[2020-05-28] MEDS: Levothyroxine Sodium 125 MCG TABLET PO (10:30)
[2020-05-28] MEDS: Betamethasone Dip Aug 0.05% Cr 15 GM TUBE 1 APPL TOPICAL ×2 (10:31→21:07)
--- NOTE | 2020-05-28 11:42 | MHC.CLN ---
F/U RECOMMEND INCREASING TF GLUCERNA AT MAX GOAL RATE 75CC/HR WITH 120CC FREE WATER FLUSHES Q SHIFT TO PROVIDE 1800KCALS, 75G PROTEIN (1.2G/KG) FOR WOUNDS, 1863CC TOTAL WATER FROM FORMULA AND FLUSHES (30CC/KG) MONITOR TO TOLERANCE, RESIDUALS AND LYTES SEE ALSO CLINICAL NUTRITION ASSESSMENT
[2020-05-28 12:42] LABS: Glucose, Whole Blood 188 mg/dL (60-115)
--- NOTE | 2020-05-28 12:47 | PM.CCPN ---
Subjective Subjective Date of Service: 05/28/20 Interval History: 74-year-old gentleman, recent 50+ pack-year smoker, with underlying COPD, congestive heart failure, hypothyroidism admitted on 05/06/2020 with confusion, hypothermia, and hypoxemia. He has been admitted to general medical [facility] and treated for aspiration pneumonia, bilateral lower extremity cellulitis, and was being worked up for acute metabolic encephalopathy. Overnight 05/10-05/11/2020 secondary to increasing oxygen requirementshe was placed on 15 L nasal cannula and was saturating 100%. At that time he was noted to be a extremely lethargic. Arterial blood gas obtained late in the morning on 05/11/2020 demonstrated acute respiratory acidosis. Patient had CO2 narcosis and pulmonary aspiration requiring intubation, ventilatory support. He was transferred to intensive care unit, and required vasopressor support, and bedside bronchoscopy for secretion clearance. He has been extubated on 05/12/2020, however required re-intubation the same days secondary to recurrent pulmonary aspiration resulting in hypoxic and hypercapnic respiratory failure. His further hospital course significant for progressive uremia, encephalopathy, and inability to wean of ventilatory support. Physical Exam Vital Signs: Vital Signs: Last Vital Signs Temp 99.3 F 05/28/20 12:00 Pulse 110 H 05/28/20 12:15 Resp 22 H 05/28/20 12:00 BP 123/49 L 05/28/20 12:00 Pulse Ox 95 05/28/20 12:00 Body Mass Index 44.7 Const: General: no acute distress and other (Poor arousal off sedation) Eyes: Sclerae: sclerae normal Neck: Neck: Yes no lymphadenopathy, Yes trachea midline and Yes supple Resp: Auscultation: clear to auscultation bilaterally Cardio: Rate: tachycardic Rhythm: regular rhythm Heart sounds: no gallops, no murmurs and no rubs GI: Palpation (GI): Soft to palpation and Other GI palpation findings present ( Nontender) Auscultation: normal bowel sounds Extrem: General: No clubbing, No cyanosis and Yes pedal edema (Trace bilateral) Objective Data Labs CBC & Chem 7: 05/28/20 05:44 05/28/20 05:44 Labs: Laboratory Results - last 24 hr 05/27/20 05/27/20 05/27/20 12:58 17:59 18:45 WBC RBC Hgb Hct MCV MCH MCHC RDW Plt Count MPV Immature Gran % (Auto) Neut % (Auto) Lymph % (Auto) [place] % (Auto) Eos % (Auto) Baso % (Auto) Lymph # (Auto) [place] # (Auto) Eos # (Auto) Baso # (Auto) Abs Immat Gran (auto) Absolute Neuts (auto) Absolute Nucleated RBC Nucleated RBC % (auto) Smear Tech's Comments PT INR APTT D-Dimer VBG pH VBG pCO2 VBG pO2 VBG HCO3 VBG O2 Saturation VBG Base Excess Sodium Potassium Chloride Carbon Dioxide Anion Gap BUN Creatinine Estim Creat Clear Calc Estimated GFR POC Glucose 281 H 170 H Random Glucose Calcium Phosphorus Magnesium Total Bilirubin Direct Bilirubin AST ALT Alkaline Phosphatase B-Natriuretic Peptide Total Protein Albumin Stool Occult Blood NEGATIVE 05/28/20 05/28/20 05/28/20 00:28 05:12 05:44 WBC 13.2 H RBC 3.00 L Hgb 8.8 L Hct 28.0 L MCV 93.3 MCH 29.3 MCHC 31.4 RDW 16.3 H Plt Count 328 MPV 11.0 Immature Gran % (Auto) 0.8 H Neut % (Auto) 94.7 H Lymph % (Auto) 2.4 L [place] % (Auto) 2.0 Eos % (Auto) 0.0 Baso % (Auto) 0.1 Lymph # (Auto) 0.3 L [place] # (Auto) 0.3 Eos # (Auto) 0.0 Baso # (Auto) 0.0 Abs Immat Gran (auto) 0.10 H Absolute Neuts (auto) 12.5 H Absolute Nucleated RBC 0.000 Nucleated RBC % (auto) 0.0 Smear Tech's Comments VERIFIED PT INR APTT D-Dimer VBG pH VBG pCO2 VBG pO2 VBG HCO3 VBG O2 Saturation VBG Base Excess Sodium Potassium Chloride Carbon Dioxide Anion Gap BUN Creatinine Estim Creat Clear Calc Estimated GFR POC Glucose 199 H 210 H Random Glucose Calcium Phosphorus Magnesium Total Bilirubin Direct Bilirubin AST ALT Alkaline Phosphatase B-Natriuretic Peptide Total Protein Albumin Stool Occult Blood 05/28/20 05/28/20 05/28/20 05:44 05:44 05:44 WBC RBC Hgb Hct MCV MCH MCHC RDW Plt Count MPV Immature Gran % (Auto) Neut % (Auto) Lymph % (Auto) [place] % (Auto) Eos % (Auto) Baso % (Auto) Lymph # (Auto) [place] # (Auto) Eos # (Auto) Baso # (Auto) Abs Immat Gran (auto) Absolute Neuts (auto) Absolute Nucleated RBC Nucleated RBC % (auto) Smear Tech's Comments PT 13.5 H INR 1.1 APTT 28.7 D-Dimer 2875 VBG pH VBG pCO2 VBG pO2 VBG HCO3 VBG O2 Saturation VBG Base Excess Sodium 145 Potassium 5.4 H Chloride 113 H Carbon Dioxide 21 L Anion Gap 16 BUN 91 H* Creatinine 2.11 H Estim Creat Clear Calc 36.6 Estimated GFR 31 POC Glucose Random Glucose 240 H D Calcium 8.1 L Phosphorus 3.7 Magnesium 3.2 H Total Bilirubin 0.3 Direct Bilirubin 0.2 AST 17 ALT 25 Alkaline Phosphatase 58 B-Natriuretic Peptide 142 H Total Protein 7.0 Albumin 3.1 L Stool Occult Blood 05/28/20 05/28/20 05/28/20 05:48 06:45 12:19 WBC RBC Hgb Hct MCV MCH MCHC RDW Plt Count MPV Immature Gran % (Auto) Neut % (Auto) Lymph % (Auto) [place] % (Auto) Eos % (Auto) Baso % (Auto) Lymph # (Auto) [place] # (Auto) Eos # (Auto) Baso # (Auto) Abs Immat Gran (auto) Absolute Neuts (auto) Absolute Nucleated RBC Nucleated RBC % (auto) Smear Tech's Comments PT INR APTT D-Dimer VBG pH 7.48 H VBG pCO2 28 VBG pO2 97 VBG HCO3 21 L VBG O2 Saturation 96.0 VBG Base Excess -1.2 Sodium Potassium Chloride Carbon Dioxide Anion Gap BUN Creatinine Estim Creat Clear Calc Estimated GFR POC Glucose 203 H 188 H Random Glucose Calcium Phosphorus Magnesium Total Bilirubin Direct Bilirubin AST ALT Alkaline Phosphatase B-Natriuretic Peptide Total Protein Albumin Stool Occult Blood Microbiology Microbiology Results: Microbiology 05/22/20 00:14 Blood - Venous Blood Culture - Final No growth after 5 days. 05/22/20 00:18 Blood - Venous Blood Culture - Final No growth after 5 days. 05/21/20 22:50 Sputum - Suctioned Gram Stain - Final 05/21/20 22:50 Sputum - Suctioned Sputum Culture - Final No growth. 05/21/20 21:00 Sacrum Gram Stain - Final 05/21/20 21:00 Sacrum Routine Culture - Final Pseudomonas aeruginosa Klebsiella pneumoniae 05/22/20 00:27 Urine Catheterized - Fermin Catheter Urine Culture - Final No growth. 05/16/20 12:30 Cerebrospinal Fluid Gram Stain - Final 05/16/20 12:30 Cerebrospinal Fluid CSF Examination - Final 05/16/20 12:30 Cerebrospinal Fluid Fluid Description - Final 05/16/20 12:30 Cerebrospinal Fluid CSF Culture - Final No growth after 3 days. 05/06/20 14:27 Blood - Venous Blood Culture - Final No growth after 5 days. 05/06/20 14:24 Blood - Venous Blood Culture - Final No growth after 5 days. Progress Note: A&P Assessment and plan (1) Myelopathy, spondylogenic, cervical: Status: Acute Assessment and Plan: Assessment: 74-year-old gentleman with underlying obesity, congestive heart failure, COPD admitted with confusion, hypothermia, and hypoxemia with hospital course complicated by acute renal failure, acute hypercapnic respiratory failure, and pulmonary aspiration. Plan: Neuro: Metabolic encephalopathy with significant uremic component. Symptomatology not consistent with GBS. Cardiac: Acute on chronic congestive heart failure. 2D echocardiogram with diastolic dysfunction and elevated filling pressures. Improved with diuresis. Pulmonary: Acute respiratory failure requiring ventilatory support. Continue to titrate off ventilatory support as tolerated. Renal: Acute renal failure with worsening uremia. Nephrology service care appreciated. Non oliguric. Continue to monitor urine output and renal indices. Will consider dialysis for uremia. Endo: No acute issues. Underlying history of hypothyroidism. GI: No acute issues. ID: Wound culture with Klebsiella and E coli, appears to be colonization, will switch meropenem to Levaquin and consider discontinuation in 24-48 hours if leukocytosis improves. Heme/Onc: No acute issues. Psych: No acute issues. Miscellaneous: No acute issues. Prophylaxis: Lovenox, famotidine Diet: Tube feeds Critical care time spent: 60 minutes (2) JETT (acute kidney injury): Status: Acute (3) Diastolic heart failure: Status: Acute (4) Pulmonary aspiration: Status: Acute (5) Acute respiratory failure with hypercapnia: Status: Acute (6) Acute metabolic encephalopathy: Status: Acute Time Spent With Patient Total time spent with greater than 50% in coordination of care (as documented) at patient's floor/unit and/or counseling patient:: 0 Critical Care Time Critical Care Time (minutes): 60
[2020-05-28] MEDS: levoFLOXacin/D5W 750 MG/150 ML PIGGYBACK 100 MG IV (13:37)
[2020-05-28] MEDS: propofoL 1,000 MG/100 ML VIAL 14.64 MG IVCONT (13:58)
--- NOTE | 2020-05-28 14:27 | PC.NURSE ---
SHIFT NOTE PT TURNING HEAD SIDE TO SIDE LEFT TO RIGHT. HE OPENS EYES BIG WHEN HIS NAME IS CALLED AND WHILE WAS AT BEDSIDE HE DID TURN HIS HEAD TO THE DIRECTION SHE WAS SPEAKING FROM. THERE WAS NOT ANY NOTED TRACKING THOUGH. PT REMAINS IN BILAT WRIST RESTRAINTS PT NOTED TO INTERM. PULL ON RESTRAINTS AND WHEN RESTRAINTS ARE RELEASED COMPLETELY PT ABLE TO REACH BILAT ARMS WEAKLY UP TOWARD THE ETT. VARGHESE GARRIDO AWARE OF FAMILY REQUESTING FOR MEETING ON THURSDAY AT 11 AM. AND SON CONCERNED THAT PT IS UNCOMFORTABLE ORDERS OBTAINED TO RESTART PROPOFOL INFUSION. PROPOFOL INFUSION STARTED AND PT APPEARS MORE COMFORTABLE AT THIS TIME. SON REMAINS AT BEDSIDE.
--- NOTE | 2020-05-28 15:01 | MHC.CM.PN ---
Pt is actively vent weaning: FiO2 down to 25: pt seemingly more aware of surroundings. Unsure what d/c needs will be but it seems likely he will need STR. Broad referals have been placed in anticipation. Will need PT/OT eval and rapid COVID for transfer and insurance auth. CM to follow
--- NOTE | 2020-05-28 16:51 | PM.PNNEP ---
Subjective Subjective Date of Service: 05/28/20 Interval history: Events noted. All recent data reviewed. D/W Critical Care Attending Physical Exam Vital Signs: Vital Signs: Last Vital Signs Temp 98.8 F 05/28/20 13:00 Pulse 102 H 05/28/20 16:00 Resp 21 H 05/28/20 16:00 BP 112/60 05/28/20 16:00 Pulse Ox 92 05/28/20 16:00 Body Mass Index 44.7 Const: General: No acute distress Neck: Neck: Yes supple Resp: Auscultation: diminished lung sounds Cardio: Heart sounds: no rubs GI: Palpation (GI): Soft to palpation Objective Data Labs CBC & Chem 7: 05/28/20 05:44 05/28/20 05:44 Labs: Laboratory Results - last 24 hr 05/27/20 05/27/20 05/28/20 17:59 18:45 00:28 WBC RBC Hgb Hct MCV MCH MCHC RDW Plt Count MPV Immature Gran % (Auto) Neut % (Auto) Lymph % (Auto) [place] % (Auto) Eos % (Auto) Baso % (Auto) Lymph # (Auto) [place] # (Auto) Eos # (Auto) Baso # (Auto) Abs Immat Gran (auto) Absolute Neuts (auto) Absolute Nucleated RBC Nucleated RBC % (auto) Smear Tech's Comments PT INR APTT D-Dimer VBG pH VBG pCO2 VBG pO2 VBG HCO3 VBG O2 Saturation VBG Base Excess Sodium Potassium Chloride Carbon Dioxide Anion Gap BUN Creatinine Estim Creat Clear Calc Estimated GFR POC Glucose 170 H 199 H Random Glucose Calcium Phosphorus Magnesium Total Bilirubin Direct Bilirubin AST ALT Alkaline Phosphatase B-Natriuretic Peptide Total Protein Albumin Stool Occult Blood NEGATIVE 05/28/20 05/28/20 05/28/20 05:12 05:44 05:44 WBC 13.2 H RBC 3.00 L Hgb 8.8 L Hct 28.0 L MCV 93.3 MCH 29.3 MCHC 31.4 RDW 16.3 H Plt Count 328 MPV 11.0 Immature Gran % (Auto) 0.8 H Neut % (Auto) 94.7 H Lymph % (Auto) 2.4 L [place] % (Auto) 2.0 Eos % (Auto) 0.0 Baso % (Auto) 0.1 Lymph # (Auto) 0.3 L [place] # (Auto) 0.3 Eos # (Auto) 0.0 Baso # (Auto) 0.0 Abs Immat Gran (auto) 0.10 H Absolute Neuts (auto) 12.5 H Absolute Nucleated RBC 0.000 Nucleated RBC % (auto) 0.0 Smear Tech's Comments VERIFIED PT 13.5 H INR 1.1 APTT 28.7 D-Dimer 2875 VBG pH VBG pCO2 VBG pO2 VBG HCO3 VBG O2 Saturation VBG Base Excess Sodium Potassium Chloride Carbon Dioxide Anion Gap BUN Creatinine Estim Creat Clear Calc Estimated GFR POC Glucose 210 H Random Glucose Calcium Phosphorus Magnesium Total Bilirubin Direct Bilirubin AST ALT Alkaline Phosphatase B-Natriuretic Peptide Total Protein Albumin Stool Occult Blood 05/28/20 05/28/20 05/28/20 05:44 05:44 05:48 WBC RBC Hgb Hct MCV MCH MCHC RDW Plt Count MPV Immature Gran % (Auto) Neut % (Auto) Lymph % (Auto) [place] % (Auto) Eos % (Auto) Baso % (Auto) Lymph # (Auto) [place] # (Auto) Eos # (Auto) Baso # (Auto) Abs Immat Gran (auto) Absolute Neuts (auto) Absolute Nucleated RBC Nucleated RBC % (auto) Smear Tech's Comments PT INR APTT D-Dimer VBG pH 7.48 H VBG pCO2 28 VBG pO2 97 VBG HCO3 21 L VBG O2 Saturation 96.0 VBG Base Excess -1.2 Sodium 145 Potassium 5.4 H Chloride 113 H Carbon Dioxide 21 L Anion Gap 16 BUN 91 H* Creatinine 2.11 H Estim Creat Clear Calc 36.6 Estimated GFR 31 POC Glucose Random Glucose 240 H D Calcium 8.1 L Phosphorus 3.7 Magnesium 3.2 H Total Bilirubin 0.3 Direct Bilirubin 0.2 AST 17 ALT 25 Alkaline Phosphatase 58 B-Natriuretic Peptide 142 H Total Protein 7.0 Albumin 3.1 L Stool Occult Blood 05/28/20 05/28/20 06:45 12:19 WBC RBC Hgb Hct MCV MCH MCHC RDW Plt Count MPV Immature Gran % (Auto) Neut % (Auto) Lymph % (Auto) [place] % (Auto) Eos % (Auto) Baso % (Auto) Lymph # (Auto) [place] # (Auto) Eos # (Auto) Baso # (Auto) Abs Immat Gran (auto) Absolute Neuts (auto) Absolute Nucleated RBC Nucleated RBC % (auto) Smear Tech's Comments PT INR APTT D-Dimer VBG pH VBG pCO2 VBG pO2 VBG HCO3 VBG O2 Saturation VBG Base Excess Sodium Potassium Chloride Carbon Dioxide Anion Gap BUN Creatinine Estim Creat Clear Calc Estimated GFR POC Glucose 203 H 188 H Random Glucose Calcium Phosphorus Magnesium Total Bilirubin Direct Bilirubin AST ALT Alkaline Phosphatase B-Natriuretic Peptide Total Protein Albumin Stool Occult Blood Microbiology Microbiology Results: Microbiology 05/22/20 00:14 Blood - Venous Blood Culture - Final No growth after 5 days. 05/22/20 00:18 Blood - Venous Blood Culture - Final No growth after 5 days. 05/21/20 22:50 Sputum - Suctioned Gram Stain - Final 05/21/20 22:50 Sputum - Suctioned Sputum Culture - Final No growth. 05/21/20 21:00 Sacrum Gram Stain - Final 05/21/20 21:00 Sacrum Routine Culture - Final Pseudomonas aeruginosa Klebsiella pneumoniae 05/22/20 00:27 Urine Catheterized - Fermin Catheter Urine Culture - Final No growth. 05/16/20 12:30 Cerebrospinal Fluid Gram Stain - Final 05/16/20 12:30 Cerebrospinal Fluid CSF Examination - Final 05/16/20 12:30 Cerebrospinal Fluid Fluid Description - Final 05/16/20 12:30 Cerebrospinal Fluid CSF Culture - Final No growth after 3 days. 05/06/20 14:27 Blood - Venous Blood Culture - Final No growth after 5 days. 05/06/20 14:24 Blood - Venous Blood Culture - Final No growth after 5 days. Assessment & Plan Assessment and plan (1) Acute renal failure: Problem details: Non oliguric JETT due to ATN Has baseline CKD 3 Renal functions fairly stable Urine output good No indication for renal replacement today Shall continue current supportive care Labs AM. Shall follow closely Status: Acute Time Spent With Patient Time: Total time spent is greater than 50% in coordination of care (as documented) at patient's floor/unit and/or counseling patient:
[2020-05-28 18:04] LABS: Glucose, Whole Blood 234 mg/dL (60-115)
[2020-05-28] MEDS: Enoxaparin Sodium 40 MG/0.4 ML SYRINGE SUBCUT (21:08)
[2020-05-28] MEDS: propofoL 1,000 MG/100 ML VIAL 10.98 MG IVCONT (22:54)
[2020-05-28 23:58] LABS: Glucose, Whole Blood 195 mg/dL (60-115)
[2020-05-29] VITALS (31 sets, daily range): BP systolic 90–117; BP diastolic 32–58; PULSE 55–95; RESP 10–16; TEMP 36.1–37.2; O2SAT 95–99; BMI 47.0
[2020-05-29] MEDS: Albuterol/Iprat 2.5/0.5MG 3 ML AMPUL.NEB INHALE ×6 (00:05→21:09)
[2020-05-29] MEDS: Insulin Lispro 100 UNIT/ML 3 ML VIAL SUBCUT ×2 (00:47→06:49)
[2020-05-29] MEDS: 0.9 % Sodium Chloride Flush 3 ML SYRINGE IVFLUSH ×3 (00:47→15:05)
[2020-05-29] MEDS: propofoL 1,000 MG/100 ML VIAL 14.64 MG IVCONT ×2 (04:30→11:09)
[2020-05-29 05:39] LABS: Basophils Percent Auto 0.1 % (0-2); Hematocrit 26.8 % (42-52); Hemoglobin 8.3 g/dl (14.0-18.0); Imm Gran Abs Auto 0.08 X10*3/uL (0.00-0.03); Imm Gran Pct Auto 0.9 % (0.0-0.4); Lymphocytes Absolute Auto 0.7 X10*3/uL (1.2-4.9); Lymphocytes Percent Auto 7.1 % (20-40); MANUAL DIFF FLAG SCAN; Mean Corpuscular Hemoglobin 29.3 pg (27.0-33.0); Mean Corpuscular Volume 94.7 fL (80-98); Monocytes Absolute Auto 0.7 X10*3/uL (0.1-1.2); Monocytes Percent Auto 7.3 % (2-11); Neutrophils Percent Auto 84.6 % (45-73); Platelet Count 311 X10*3/uL (160-400); Red Blood Count 2.83 X10*6/uL (4.60-5.80); Red Cell Distribution Width 17.1 % (11.0-16.0); SCAN SMEAR FLAG 1; White Blood Count 9.4 X10*3/uL (4.8-10.8)
[2020-05-29 05:40] LABS: VBG Base Excess -0.6 mmol/L; VBG HCO3 23 mmol/L (22-26); VBG pCO2 33 mmHg; VBG pH 7.44 (7.32-7.43); VBG pO2 150 mmHg
[2020-05-29 05:41] LABS: Venous Blood Gas Refer to POC result
[2020-05-29 06:08] LABS: SLIDE REVIEW VERIFIED
[2020-05-29 06:10] LABS: Alanine Aminotransferase 21 U/L (0-40); Alkaline Phosphatase 53 U/L (39-117); Anion Gap 15 (12-20); Aspartate Amino Transferase 13 U/L (5-37); Bilirubin Total 0.3 mg/dL (0.0-1.0); Blood Urea Nitrogen 91 mg/dL (9-16); Calcium 8.1 mg/dL (8.4-10.2); Carbon Dioxide 22 mmol/L (22-29); Chloride 114 mmol/L (96-108); Creatinine Clr Calc Pharmacy 34.8; Estimated Glomerular Filt Rate 29; Glucose Random 186 mg/dL (60-115); Magnesium 3.2 mg/dL (1.6-2.6); Phosphorus 3.4 mg/dL (2.7-4.5); Potassium 5.1 mmol/L (3.3-5.1); Sodium 146 mmol/L (135-145); Total Protein 6.8 g/dL (6.5-8.0)
[2020-05-29 06:50] LABS: Glucose, Whole Blood 160 mg/dL (60-115)
[2020-05-29] MEDS: Chlorhexidine Gluc Oral Rinse 15 ML MOUTHWASH BUCCAL ×3 (07:45→22:49)
[2020-05-29] MEDS: Nystatin Powder 15 GM BOTTLE 1 APPL TOPICAL ×3 (07:46→23:01)
[2020-05-29] MEDS: Sodium Bicarbonate 650 MG TABLET PO ×3 (07:46→22:49)
[2020-05-29] MEDS: Levothyroxine Sodium 125 MCG TABLET PO (07:46)
[2020-05-29] MEDS: Famotidine/PF 20 MG/2 ML VIAL IVPUSH (07:46)
[2020-05-29] MEDS: Betamethasone Dip Aug 0.05% Cr 15 GM TUBE 1 APPL TOPICAL ×2 (07:46→23:00)
[2020-05-29 12:16] LABS: Glucose, Whole Blood 142 mg/dL (60-115)
--- NOTE | 2020-05-29 13:37 | MHC.CM.PN ---
Pt continues on ventilator support: not responsive to commands - met with pt's spouse who was visiting today. 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
--- NOTE | 2020-05-29 13:43 | P.PNCC_ITS ---
Subjective Subjective Date of Service: 05/29/20 Interval History: 74-year-old gentleman, recent 50+ pack-year smoker, with underlying COPD, congestive heart failure, hypothyroidism admitted on 05/06/2020 with confusion, hypothermia, and hypoxemia. He has been admitted to general medical lopes and treated for aspiration pneumonia, bilateral lower extremity cellulitis, and was being worked up for acute metabolic encephalopathy. Overnight 05/10-05/11/2020 secondary to increasing oxygen requirementshe was placed on 15 L nasal cannula and was saturating 100%. At that time he was noted to be a extremely lethargic. Arterial blood gas obtained late in the morning on 05/11/2020 demonstrated acute respiratory acidosis. Patient had CO2 narcosis and pulmonary aspiration requiring intubation, ventilatory support. He was transferred to intensive care unit, and required vasopressor support, and bedside bronchoscopy for secretion clearance. He has been extubated on 05/12/2020, however required re-intubation the same days secondary to recurrent pulmonary aspiration resulting in hypoxic and hypercapnic respiratory failure. His further hospital course significant for progressive uremia, encephalopathy, and inability to wean of ventilatory support. No events overnight. No significant changes in underlying encephalopathy. Physical Exam Vital Signs: Vital Signs: Last Vital Signs Temp 98.6 F 05/29/20 13:00 Pulse 75 05/29/20 13:00 Resp 16 05/29/20 13:00 BP 112/54 L 05/29/20 13:00 Pulse Ox 96 05/29/20 13:00 Body Mass Index 47.0 Const: General: no acute distress and other (Sedated on event, no arousal with sedation vacation.) Nutritional Appearance: obese Eyes: Sclerae: sclerae normal Neck: Neck: Yes no lymphadenopathy, Yes trachea midline and Yes supple Resp: Effort & Inspection: normal respiratory effort and no respiratory distress Auscultation: clear to auscultation bilaterally Cardio: Rate: regular rate Rhythm: regular rhythm Heart sounds: no gallops, no murmurs and no rubs GI: Palpation (GI): Soft to palpation and Other GI palpation findings present ( Nontender) Auscultation: normal bowel sounds Extrem: General: No clubbing, No cyanosis and Yes pedal edema (Trace bilateral) Objective Data Labs CBC & Chem 7: 05/29/20 05:23 05/29/20 05:23 Labs: Laboratory Results - last 24 hr 05/28/20 05/28/20 05/29/20 18:00 23:52 05:23 WBC 9.4 RBC 2.83 L Hgb 8.3 L Hct 26.8 L MCV 94.7 MCH 29.3 MCHC 31.0 RDW 17.1 H Plt Count 311 MPV 11.0 Immature Gran % (Auto) 0.9 H Neut % (Auto) 84.6 H Lymph % (Auto) 7.1 L [place] % (Auto) 7.3 Eos % (Auto) 0.0 Baso % (Auto) 0.1 Lymph # (Auto) 0.7 L [place] # (Auto) 0.7 Eos # (Auto) 0.0 Baso # (Auto) 0.0 Abs Immat Gran (auto) 0.08 H Absolute Neuts (auto) 8.0 Absolute Nucleated RBC 0.000 Nucleated RBC % (auto) 0.0 Smear Tech's Comments VERIFIED VBG pH VBG pCO2 VBG pO2 VBG HCO3 VBG O2 Saturation VBG Base Excess Sodium Potassium Chloride Carbon Dioxide Anion Gap BUN Creatinine Estim Creat Clear Calc Estimated GFR POC Glucose 234 H 195 H Random Glucose Calcium Phosphorus Magnesium Total Bilirubin AST ALT Alkaline Phosphatase Total Protein Albumin 05/29/20 05/29/20 05/29/20 05:23 05:33 06:39 WBC RBC Hgb Hct MCV MCH MCHC RDW Plt Count MPV Immature Gran % (Auto) Neut % (Auto) Lymph % (Auto) [place] % (Auto) Eos % (Auto) Baso % (Auto) Lymph # (Auto) [place] # (Auto) Eos # (Auto) Baso # (Auto) Abs Immat Gran (auto) Absolute Neuts (auto) Absolute Nucleated RBC Nucleated RBC % (auto) Smear Tech's Comments VBG pH 7.44 H VBG pCO2 33 VBG pO2 150 VBG HCO3 23 VBG O2 Saturation 97.0 VBG Base Excess -0.6 Sodium 146 H Potassium 5.1 Chloride 114 H Carbon Dioxide 22 Anion Gap 15 BUN 91 H* Creatinine 2.22 H Estim Creat Clear Calc 34.8 Estimated GFR 29 POC Glucose 160 H Random Glucose 186 H Calcium 8.1 L Phosphorus 3.4 Magnesium 3.2 H Total Bilirubin 0.3 AST 13 ALT 21 Alkaline Phosphatase 53 Total Protein 6.8 Albumin 3.0 L 05/29/20 12:13 WBC RBC Hgb Hct MCV MCH MCHC RDW Plt Count MPV Immature Gran % (Auto) Neut % (Auto) Lymph % (Auto) [place] % (Auto) Eos % (Auto) Baso % (Auto) Lymph # (Auto) [place] # (Auto) Eos # (Auto) Baso # (Auto) Abs Immat Gran (auto) Absolute Neuts (auto) Absolute Nucleated RBC Nucleated RBC % (auto) Smear Tech's Comments VBG pH VBG pCO2 VBG pO2 VBG HCO3 VBG O2 Saturation VBG Base Excess Sodium Potassium Chloride Carbon Dioxide Anion Gap BUN Creatinine Estim Creat Clear Calc Estimated GFR POC Glucose 142 H Random Glucose Calcium Phosphorus Magnesium Total Bilirubin AST ALT Alkaline Phosphatase Total Protein Albumin Microbiology Microbiology Results: Microbiology 05/22/20 00:14 Blood - Venous Blood Culture - Final No growth after 5 days. 05/22/20 00:18 Blood - Venous Blood Culture - Final No growth after 5 days. 05/21/20 22:50 Sputum - Suctioned Gram Stain - Final 05/21/20 22:50 Sputum - Suctioned Sputum Culture - Final No growth. 05/21/20 21:00 Sacrum Gram Stain - Final 05/21/20 21:00 Sacrum Routine Culture - Final Pseudomonas aeruginosa Klebsiella pneumoniae 05/22/20 00:27 Urine Catheterized - Fermin Catheter Urine Culture - Final No growth. 05/16/20 12:30 Cerebrospinal Fluid Gram Stain - Final 05/16/20 12:30 Cerebrospinal Fluid CSF Examination - Final 05/16/20 12:30 Cerebrospinal Fluid Fluid Description - Final 05/16/20 12:30 Cerebrospinal Fluid CSF Culture - Final No growth after 3 days. 05/06/20 14:27 Blood - Venous Blood Culture - Final No growth after 5 days. 05/06/20 14:24 Blood - Venous Blood Culture - Final No growth after 5 days. Progress Note: A&P Assessment and plan (1) JETT (acute kidney injury): Status: Acute Assessment and Plan: Assessment: 74-year-old gentleman with underlying obesity, congestive heart failure, COPD admitted with confusion, hypothermia, and hypoxemia with hospital course complicated by acute renal failure, acute hypercapnic respiratory failure, and pulmonary aspiration. Plan: Neuro: Metabolic encephalopathy. Possibility to be room component discussed with nephrology service and deemed unlikely. Symptomatology not consistent with GBS. Cardiac: Acute on chronic congestive heart failure. 2D echocardiogram with diastolic dysfunction and elevated filling pressures. Improved with diuresis. Pulmonary: Acute respiratory failure requiring ventilatory support. Continue to titrate off ventilatory support as tolerated. Renal: Acute renal failure with worsening uremia. Nephrology service care a ppreciated. Non oliguric. Continue to monitor urine output and renal indices. Endo: No acute issues. Underlying history of hypothyroidism. GI: No acute issues. ID: Wound culture with Klebsiella and Pseudomonas, appears to be colonization, continues on Levaquin. Heme/Onc: No acute issues. Psych: No acute issues. Miscellaneous: No acute issues. Overall poor prognosis. Family discussion about goals of care ongoing. Prophylaxis: Lovenox, famotidine Diet: Tube feeds Critical care time spent: 60 minutes (2) CKD (chronic kidney disease) stage 3, GFR 30-59 ml/min: Status: Acute (3) Myelopathy, spondylogenic, cervical: Status: Acute (4) Obesity: Status: Acute (5) Diastolic heart failure: Status: Acute (6) Acute respiratory failure with hypercapnia: Status: Acute (7) Acute metabolic encephalopathy: Status: Acute (8) Aspiration pneumonia: Status: Acute Time Spent With Patient Total time spent with greater than 50% in coordination of care (as documented) at patient's floor/unit and/or counseling patient:: 0 Critical Care Time Critical Care Time (minutes): 60
--- NOTE | 2020-05-29 14:33 | P.PNID_ITS ---
Subjective Subjective Date of Service: 05/29/20 Interval History: he has Pseudomonas and Klebsiella wound Objective Data Labs CBC & Chem 7: 05/29/20 05:23 05/29/20 05:23 Labs: Laboratory Results - last 24 hr 05/28/20 05/28/20 05/29/20 18:00 23:52 05:23 WBC 9.4 RBC 2.83 L Hgb 8.3 L Hct 26.8 L MCV 94.7 MCH 29.3 MCHC 31.0 RDW 17.1 H Plt Count 311 MPV 11.0 Immature Gran % (Auto) 0.9 H Neut % (Auto) 84.6 H Lymph % (Auto) 7.1 L [place] % (Auto) 7.3 Eos % (Auto) 0.0 Baso % (Auto) 0.1 Lymph # (Auto) 0.7 L [place] # (Auto) 0.7 Eos # (Auto) 0.0 Baso # (Auto) 0.0 Abs Immat Gran (auto) 0.08 H Absolute Neuts (auto) 8.0 Absolute Nucleated RBC 0.000 Nucleated RBC % (auto) 0.0 Smear Tech's Comments VERIFIED VBG pH VBG pCO2 VBG pO2 VBG HCO3 VBG O2 Saturation VBG Base Excess Sodium Potassium Chloride Carbon Dioxide Anion Gap BUN Creatinine Estim Creat Clear Calc Estimated GFR POC Glucose 234 H 195 H Random Glucose Calcium Phosphorus Magnesium Total Bilirubin AST ALT Alkaline Phosphatase Total Protein Albumin 05/29/20 05/29/20 05/29/20 05:23 05:33 06:39 WBC RBC Hgb Hct MCV MCH MCHC RDW Plt Count MPV Immature Gran % (Auto) Neut % (Auto) Lymph % (Auto) [place] % (Auto) Eos % (Auto) Baso % (Auto) Lymph # (Auto) [place] # (Auto) Eos # (Auto) Baso # (Auto) Abs Immat Gran (auto) Absolute Neuts (auto) Absolute Nucleated RBC Nucleated RBC % (auto) Smear Tech's Comments VBG pH 7.44 H VBG pCO2 33 VBG pO2 150 VBG HCO3 23 VBG O2 Saturation 97.0 VBG Base Excess -0.6 Sodium 146 H Potassium 5.1 Chloride 114 H Carbon Dioxide 22 Anion Gap 15 BUN 91 H* Creatinine 2.22 H Estim Creat Clear Calc 34.8 Estimated GFR 29 POC Glucose 160 H Random Glucose 186 H Calcium 8.1 L Phosphorus 3.4 Magnesium 3.2 H Total Bilirubin 0.3 AST 13 ALT 21 Alkaline Phosphatase 53 Total Protein 6.8 Albumin 3.0 L 05/29/20 12:13 WBC RBC Hgb Hct MCV MCH MCHC RDW Plt Count MPV Immature Gran % (Auto) Neut % (Auto) Lymph % (Auto) [place] % (Auto) Eos % (Auto) Baso % (Auto) Lymph # (Auto) [place] # (Auto) Eos # (Auto) Baso # (Auto) Abs Immat Gran (auto) Absolute Neuts (auto) Absolute Nucleated RBC Nucleated RBC % (auto) Smear Tech's Comments VBG pH VBG pCO2 VBG pO2 VBG HCO3 VBG O2 Saturation VBG Base Excess Sodium Potassium Chloride Carbon Dioxide Anion Gap BUN Creatinine Estim Creat Clear Calc Estimated GFR POC Glucose 142 H Random Glucose Calcium Phosphorus Magnesium Total Bilirubin AST ALT Alkaline Phosphatase Total Protein Albumin Microbiology Microbiology Results: Microbiology 05/22/20 00:14 Blood - Venous Blood Culture - Final No growth after 5 days. 05/22/20 00:18 Blood - Venous Blood Culture - Final No growth after 5 days. 05/21/20 22:50 Sputum - Suctioned Gram Stain - Final 05/21/20 22:50 Sputum - Suctioned Sputum Culture - Final No growth. 05/21/20 21:00 Sacrum Gram Stain - Final 05/21/20 21:00 Sacrum Routine Culture - Final Pseudomonas aeruginosa Klebsiella pneumoniae 05/22/20 00:27 Urine Catheterized - Fermin Catheter Urine Culture - Final No growth. 05/16/20 12:30 Cerebrospinal Fluid Gram Stain - Final 05/16/20 12:30 Cerebrospinal Fluid CSF Examination - Final 05/16/20 12:30 Cerebrospinal Fluid Fluid Description - Final 05/16/20 12:30 Cerebrospinal Fluid CSF Culture - Final No growth after 3 days. 05/06/20 14:27 Blood - Venous Blood Culture - Final No growth after 5 days. 05/06/20 14:24 Blood - Venous Blood Culture - Final No growth after 5 days. Physical Exam Vital Signs: Vital Signs: Last Vital Signs Temp 98.6 F 05/29/20 13:00 Pulse 78 05/29/20 14:00 Resp 15 05/29/20 14:00 BP 113/53 L 05/29/20 14:00 Pulse Ox 97 05/29/20 14:00 Body Mass Index 47.0 Const: General: cooperative HENMT: Head: Yes normal to inspection Mouth: Normal oral and palatal mucosa present Resp: Effort & Inspection: normal respiratory effort Cardio: Rate: regular rate Rhythm: regular rhythm GI: Palpation (GI): Soft to palpation and nontender Extrem: General: Yes normal to inspection Assessment and Plan Assessment and plan (1) CKD (chronic kidney disease) stage 3, GFR 30-59 ml/min: Status: Acute (2) Pressure injury of coccygeal region, unstageable: Problem details: Pseudomonas and Klebs pneumonia wound sacrum but superficial Status: Acute Assessment and Plan: Would stop Levaquin after 3-7 days superficial clearing Time Spent With Patient Time: Total time spent is greater than 50% in coordination of care (as docume nted) at patient's floor/unit and/or counseling patient: Time with patient: 15 - 24 minutes
[2020-05-29] MEDS: propofoL 1,000 MG/100 ML VIAL 21.96 MG IVCONT ×2 (14:47→22:14)
--- NOTE | 2020-05-29 17:38 | PM.PNNEP ---
Subjective Subjective Date of Service: 05/29/20 Interval history: Seen AM. Events noted. All recent data reviewed Physical Exam Vital Signs: Vital Signs: Last Vital Signs Temp 98.1 F 05/29/20 17:00 Pulse 67 05/29/20 17:00 Resp 13 05/29/20 17:00 BP 106/43 L 05/29/20 17:00 Pulse Ox 98 05/29/20 17:00 Body Mass Index 47.0 Const: General: No acute distress Neck: Neck: Yes supple Cardio: Rate: regular rate GI: Palpation (GI): Soft to palpation Objective Data Labs CBC & Chem 7: 05/29/20 05:23 05/29/20 05:23 Labs: Laboratory Results - last 24 hr 05/28/20 05/28/20 05/29/20 18:00 23:52 05:23 WBC 9.4 RBC 2.83 L Hgb 8.3 L Hct 26.8 L MCV 94.7 MCH 29.3 MCHC 31.0 RDW 17.1 H Plt Count 311 MPV 11.0 Immature Gran % (Auto) 0.9 H Neut % (Auto) 84.6 H Lymph % (Auto) 7.1 L [place] % (Auto) 7.3 Eos % (Auto) 0.0 Baso % (Auto) 0.1 Lymph # (Auto) 0.7 L [place] # (Auto) 0.7 Eos # (Auto) 0.0 Baso # (Auto) 0.0 Abs Immat Gran (auto) 0.08 H Absolute Neuts (auto) 8.0 Absolute Nucleated RBC 0.000 Nucleated RBC % (auto) 0.0 Smear Tech's Comments VERIFIED VBG pH VBG pCO2 VBG pO2 VBG HCO3 VBG O2 Saturation VBG Base Excess Sodium Potassium Chloride Carbon Dioxide Anion Gap BUN Creatinine Estim Creat Clear Calc Estimated GFR POC Glucose 234 H 195 H Random Glucose Calcium Phosphorus Magnesium Total Bilirubin AST ALT Alkaline Phosphatase Total Protein Albumin 05/29/20 05/29/20 05/29/20 05:23 05:33 06:39 WBC RBC Hgb Hct MCV MCH MCHC RDW Plt Count MPV Immature Gran % (Auto) Neut % (Auto) Lymph % (Auto) [place] % (Auto) Eos % (Auto) Baso % (Auto) Lymph # (Auto) [place] # (Auto) Eos # (Auto) Baso # (Auto) Abs Immat Gran (auto) Absolute Neuts (auto) Absolute Nucleated RBC Nucleated RBC % (auto) Smear Tech's Comments VBG pH 7.44 H VBG pCO2 33 VBG pO2 150 VBG HCO3 23 VBG O2 Saturation 97.0 VBG Base Excess -0.6 Sodium 146 H Potassium 5.1 Chloride 114 H Carbon Dioxide 22 Anion Gap 15 BUN 91 H* Creatinine 2.22 H Estim Creat Clear Calc 34.8 Estimated GFR 29 POC Glucose 160 H Random Glucose 186 H Calcium 8.1 L Phosphorus 3.4 Magnesium 3.2 H Total Bilirubin 0.3 AST 13 ALT 21 Alkaline Phosphatase 53 Total Protein 6.8 Albumin 3.0 L 05/29/20 12:13 WBC RBC Hgb Hct MCV MCH MCHC RDW Plt Count MPV Immature Gran % (Auto) Neut % (Auto) Lymph % (Auto) [place] % (Auto) Eos % (Auto) Baso % (Auto) Lymph # (Auto) [place] # (Auto) Eos # (Auto) Baso # (Auto) Abs Immat Gran (auto) Absolute Neuts (auto) Absolute Nucleated RBC Nucleated RBC % (auto) Smear Tech's Comments VBG pH VBG pCO2 VBG pO2 VBG HCO3 VBG O2 Saturation VBG Base Excess Sodium Potassium Chloride Carbon Dioxide Anion Gap BUN Creatinine Estim Creat Clear Calc Estimated GFR POC Glucose 142 H Random Glucose Calcium Phosphorus Magnesium Total Bilirubin AST ALT Alkaline Phosphatase Total Protein Albumin Microbiology Microbiology Results: Microbiology 05/22/20 00:14 Blood - Venous Blood Culture - Final No growth after 5 days. 05/22/20 00:18 Blood - Venous Blood Culture - Final No growth after 5 days. 05/21/20 22:50 Sputum - Suctioned Gram Stain - Final 05/21/20 22:50 Sputum - Suctioned Sputum Culture - Final No growth. 05/21/20 21:00 Sacrum Gram Stain - Final 05/21/20 21:00 Sacrum Routine Culture - Final Pseudomonas aeruginosa Klebsiella pneumoniae 05/22/20 00:27 Urine Catheterized - Fermin Catheter Urine Culture - Final No growth. 05/16/20 12:30 Cerebrospinal Fluid Gram Stain - Final 05/16/20 12:30 Cerebrospinal Fluid CSF Examination - Final 05/16/20 12:30 Cerebrospinal Fluid Fluid Description - Final 05/16/20 12:30 Cerebrospinal Fluid CSF Culture - Final No growth after 3 days. 05/06/20 14:27 Blood - Venous Blood Culture - Final No growth after 5 days. 05/06/20 14:24 Blood - Venous Blood Culture - Final No growth after 5 days. Assessment & Plan Assessment and plan (1) Acute renal failure: Problem details: Non oliguric JETT due to ATN Has baseline CKD 3 Renal functions fairly stable Urine output good No indication for renal replacement today Shall continue current supportive care Labs AM. Shall follow closely Status: Acute Time Spent With Patient Time: Total time spent is greater than 50% in coordination of care (as documented) at patient's floor/unit and/or counseling patient:
[2020-05-29 18:09] LABS: Glucose, Whole Blood 143 mg/dL (60-115)
[2020-05-29] MEDS: Enoxaparin Sodium 40 MG/0.4 ML SYRINGE SUBCUT (22:49)
[2020-05-30] VITALS (18 sets, daily range): BP systolic 90–117; BP diastolic 31–58; PULSE 53–96; RESP 6–24; TEMP 35.6–36.3; O2SAT 94–100; BMI 46.9
[2020-05-30 00:02] LABS: Glucose, Whole Blood 133 mg/dL (60-115)
[2020-05-30 00:21] LABS: Cryoglobulin, Qual Negative (Negative)
[2020-05-30] MEDS: Insulin Lispro 100 UNIT/ML 3 ML VIAL SUBCUT (00:40)
[2020-05-30] MEDS: Albuterol/Iprat 2.5/0.5MG 3 ML AMPUL.NEB INHALE ×3 (00:41→08:22)
[2020-05-30] MEDS: 0.9 % Sodium Chloride Flush 3 ML SYRINGE IVFLUSH ×2 (00:41→10:08)
[2020-05-30 02:44] LABS: Cancel Lactic Acid Canceled
[2020-05-30] MEDS: propofoL 1,000 MG/100 ML VIAL 14.64 MG IVCONT ×2 (03:39→10:09)
[2020-05-30 05:45] LABS: VBG Base Excess -1.9 mmol/L; VBG HCO3 22 mmol/L (22-26); VBG pCO2 35 mmHg; VBG pO2 187 mmHg
[2020-05-30 05:48] LABS: Venous Blood Gas Refer to POC result
[2020-05-30 05:48] LABS: Basophils Percent Auto 0.1 % (0-2); Eosinophils Absolute Auto 0.3 X10*3/uL (0.0-0.4); Eosinophils Percent Auto 3.1 % (0-4); Hematocrit 27.1 % (42-52); Hemoglobin 8.3 g/dl (14.0-18.0); Imm Gran Abs Auto 0.05 X10*3/uL (0.00-0.03); Imm Gran Pct Auto 0.6 % (0.0-0.4); Lymphocytes Absolute Auto 0.6 X10*3/uL (1.2-4.9); Lymphocytes Percent Auto 6.8 % (20-40); MANUAL DIFF FLAG SCAN; Mean Corpuscular HGB Conc 30.6 g/dl (31.0-36.0); Mean Corpuscular Hemoglobin 29.5 pg (27.0-33.0); Mean Corpuscular Volume 96.4 fL (80-98); Mean Platelet Volume 11.1 fL (9.4-12.4); Monocytes Absolute Auto 0.4 X10*3/uL (0.1-1.2); Monocytes Percent Auto 5.1 % (2-11); Neutrophils Absolute Auto 6.8 X10*3/uL (2.0-8.3); Neutrophils Percent Auto 84.3 % (45-73); Platelet Count 277 X10*3/uL (160-400); Red Blood Count 2.81 X10*6/uL (4.60-5.80); Red Cell Distribution Width 17.2 % (11.0-16.0); SCAN SMEAR FLAG 1; White Blood Count 8.1 X10*3/uL (4.8-10.8)
[2020-05-30 06:13] LABS: Glucose, Whole Blood 147 mg/dL (60-115)
[2020-05-30 06:14] LABS: SLIDE REVIEW VERIFIED
[2020-05-30 06:20] LABS: Albumin Level 2.9 g/dL (3.5-5.0); Anion Gap 15 (12-20); Blood Urea Nitrogen 84 mg/dL (9-16); Calcium 7.7 mg/dL (8.4-10.2); Carbon Dioxide 22 mmol/L (22-29); Chloride 113 mmol/L (96-108); Creatinine Clr Calc Pharmacy 40.3; Estimated Glomerular Filt Rate 33; Glucose Random 174 mg/dL (60-115); Magnesium 3.1 mg/dL (1.6-2.6); Phosphorus 4.8 mg/dL (2.7-4.5); Potassium 4.5 mmol/L (3.3-5.1); Sodium 145 mmol/L (135-145)
[2020-05-30] MEDS: Sodium Bicarbonate 650 MG TABLET PO (10:08)
[2020-05-30] MEDS: Levothyroxine Sodium 125 MCG TABLET PO (10:08)
[2020-05-30] MEDS: Betamethasone Dip Aug 0.05% Cr 15 GM TUBE 1 APPL TOPICAL (10:08)
[2020-05-30] MEDS: Famotidine/PF 20 MG/2 ML VIAL IVPUSH (10:08)
[2020-05-30] MEDS: Chlorhexidine Gluc Oral Rinse 15 ML MOUTHWASH BUCCAL (10:08)
[2020-05-30] MEDS: Nystatin Powder 15 GM BOTTLE 1 APPL TOPICAL (10:09)
--- NOTE | 2020-05-30 10:23 | MHC.CLN ---
F/U TF CONTINUES GLUCERNA AT MAX GOAL RATE 75CC/HR WITH 120CC FREE WATER FLUSHES Q SHIFT TO PROVIDE 1800KCALS, 75G PROTEIN (1.2G/KG) FOR WOUNDS, 1863CC TOTAL WATER FROM FORMULA AND FLUSHES (30CC/KG) MONITOR TO TOLERANCE, RESIDUALS AND LYTES FOLLOWING
[2020-05-30] MEDS: fentaNYL citrate/PF 100 MCG/2 ML VIAL IVPUSH (10:55)
[2020-05-30] MEDS: Midazolam HCl/PF 2 MG/2 ML VIAL IVPUSH (11:14)
[2020-05-30] MEDS: fentaNYL citrate/NS 1,000 MCG/100 ML PLAST..BAG 10 MCG IVCONT ×2 (11:26→17:57)
--- NOTE | 2020-05-30 13:08 | PM.CCPN ---
Subjective Subjective Date of Service: 05/30/20 Interval History: 74-year-old gentleman, recent 50+ pack-year smoker, with underlying COPD, congestive heart failure, hypothyroidism admitted on 05/06/2020 with confusion, hypothermia, and hypoxemia. He has been admitted to [facility] and treated for aspiration pneumonia, bilateral lower extremity cellulitis, and was being worked up for acute metabolic encephalopathy. Overnight 05/10-05/11/2020 secondary to increasing oxygen requirementshe was placed on 15 L nasal cannula and was saturating 100%. At that time he was noted to be a extremely lethargic. Arterial blood gas obtained late in the morning on 05/11/2020 demonstrated acute respiratory acidosis. Patient had CO2 narcosis and pulmonary aspiration requiring intubation, ventilatory support. He was transferred to intensive care unit, and required vasopressor support, and bedside bronchoscopy for secretion clearance. He has been extubated on 05/12/2020, however required re-intubation the same days secondary to recurrent pulmonary aspiration resulting in hypoxic and hypercapnic respiratory failure. His further hospital course significant for progressive uremia, encephalopathy, and inability to wean of ventilatory support. Family meeting held today. Overall poor prognosis, particularly for neurologic recovery discussed. Family members including and 2 children stated that patient would not have wanted the prolonged interventions that he is receiving in requested change of goals of care to palliation. Code status has been changed to comfort measures only. Patient has been extubated and is being maintained on sedatives for his comfort. Physical Exam Vital Signs: Vital Signs: Last Vital Signs Temp 96.4 F L 05/30/20 10:00 Pulse 66 05/30/20 10:00 Resp 11 L 05/30/20 10:00 BP 117/49 L 05/30/20 10:00 Pulse Ox 98 05/30/20 10:00 Body Mass Index 46.9 Comfortable on fentanyl drip. Objective Data Labs CBC & Chem 7: 05/30/20 05:26 05/30/20 05:26 Labs: Laboratory Results - last 24 hr 05/23/20 05/29/20 05/29/20 10:00 17:50 23:46 WBC RBC Hgb Hct MCV MCH MCHC RDW Plt Count MPV Immature Gran % (Auto) Neut % (Auto) Lymph % (Auto) [place] % (Auto) Eos % (Auto) Baso % (Auto) Lymph # (Auto) [place] # (Auto) Eos # (Auto) Baso # (Auto) Abs Immat Gran (auto) Absolute Neuts (auto) Absolute Nucleated RBC Nucleated RBC % (auto) Smear Tech's Comments VBG pH VBG pCO2 VBG pO2 VBG HCO3 VBG O2 Saturation VBG Base Excess Sodium Potassium Chloride Carbon Dioxide Anion Gap BUN Creatinine Estim Creat Clear Calc Estimated GFR POC Glucose 143 H 133 H Random Glucose Calcium Phosphorus Magnesium Albumin Cryoglobulin Negative Cryoglobulin Cryocrit TNP 05/30/20 05/30/20 05/30/20 05:26 05:26 05:37 WBC 8.1 RBC 2.81 L Hgb 8.3 L Hct 27.1 L MCV 96.4 MCH 29.5 MCHC 30.6 L RDW 17.2 H Plt Count 277 MPV 11.1 Immature Gran % (Auto) 0.6 H Neut % (Auto) 84.3 H Lymph % (Auto) 6.8 L [place] % (Auto) 5.1 Eos % (Auto) 3.1 Baso % (Auto) 0.1 Lymph # (Auto) 0.6 L [place] # (Auto) 0.4 Eos # (Auto) 0.3 Baso # (Auto) 0.0 Abs Immat Gran (auto) 0.05 H Absolute Neuts (auto) 6.8 Absolute Nucleated RBC 0.000 Nucleated RBC % (auto) 0.0 Smear Tech's Comments VERIFIED VBG pH 7.40 VBG pCO2 35 VBG pO2 187 VBG HCO3 22 VBG O2 Saturation 98.0 VBG Base Excess -1.9 Sodium 145 Potassium 4.5 Chloride 113 H Carbon Dioxide 22 Anion Gap 15 BUN 84 H* Creatinine 1.97 H Estim Creat Clear Calc 40.3 Estimated GFR 33 POC Glucose Random Glucose 174 H Calcium 7.7 L Phosphorus 4.8 H Magnesium 3.1 H Albumin 2.9 L Cryoglobulin Cryoglobulin Cryocrit 05/30/20 06:10 WBC RBC Hgb Hct MCV MCH MCHC RDW Plt Count MPV Immature Gran % (Auto) Neut % (Auto) Lymph % (Auto) [place] % (Auto) Eos % (Auto) Baso % (Auto) Lymph # (Auto) [place] # (Auto) Eos # (Auto) Baso # (Auto) Abs Immat Gran (auto) Absolute Neuts (auto) Absolute Nucleated RBC Nucleated RBC % (auto) Smear Tech's Comments VBG pH VBG pCO2 VBG pO2 VBG HCO3 VBG O2 Saturation VBG Base Excess Sodium Potassium Chloride Carbon Dioxide Anion Gap BUN Creatinine Estim Creat Clear Calc Estimated GFR POC Glucose 147 H Random Glucose Calcium Phosphorus Magnesium Albumin Cryoglobulin Cryoglobulin Cryocrit Microbiology Microbiology Results: Microbiology 05/22/20 00:14 Blood - Venous Blood Culture - Final No growth after 5 days. 05/22/20 00:18 Blood - Venous Blood Culture - Final No growth after 5 days. 05/21/20 22:50 Sputum - Suctioned Gram Stain - Final 05/21/20 22:50 Sputum - Suctioned Sputum Culture - Final No growth. 05/21/20 21:00 Sacrum Gram Stain - Final 05/21/20 21:00 Sacrum Routine Culture - Final Pseudomonas aeruginosa Klebsiella pneumoniae 05/22/20 00:27 Urine Catheterized - Fermin Catheter Urine Culture - Final No growth. 05/16/20 12:30 Cerebrospinal Fluid Gram Stain - Final 05/16/20 12:30 Cerebrospinal Fluid CSF Examination - Final 05/16/20 12:30 Cerebrospinal Fluid Fluid Description - Final 05/16/20 12:30 Cerebrospinal Fluid CSF Culture - Final No growth after 3 days. 05/06/20 14:27 Blood - Venous Blood Culture - Final No growth after 5 days. 05/06/20 14:24 Blood - Venous Blood Culture - Final No growth after 5 days. Progress Note: A&P Time Spent With Patient Total time spent with greater than 50% in coordination of care (as documented) at patient's floor/unit and/or counseling patient:: 0
--- NOTE | 2020-05-30 15:06 | MHC.CM.PN ---
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 Pt will transfer to [place] for continued care: Very briefly discussed Hospice at home or facility. Family aware of the option but would like to see if pt will pass in the next day or so. CM will follow for d/c planning needs
--- NOTE | 2020-05-30 15:07 | PC.NURSE ---
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 Pt resting with eyes closed and family at bedside
--- NOTE | 2020-05-30 18:03 | PC.NURSE ---
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 intermittently falls asleep and then wakes up restless, doesn't appear to be uncomfortable, eyes open spontaneously but pt. unable to follow commands, seems to have involuntary [id number] movement of head, galvez in place for comfort, resting in bed, daughter at bedside
[2020-05-30] MEDS: LORazepam 2 MG/ML VIAL IVPUSH (18:28)
[2020-05-30] MEDS: Scopolamine 1.5 MG PATCH.TD.3 EAR-BEHIND (18:30)
[2020-05-31] MEDS: fentaNYL citrate/NS 1,000 MCG/100 ML PLAST..BAG 10 MCG IVCONT ×2 (05:00→15:21)
--- NOTE | 2020-05-31 10:23 | HO.PM.IMPN ---
Subjective Subjective Date of Service: 05/31/20 Interval History: comfotable Review of Systems Review of Systems: Yes Unobtainable due to mental status Physical Exam Vital Signs: Vital Signs: Last Vital Signs Temp 96.9 F 05/30/20 17:13 Pulse 96 05/30/20 17:13 Resp 14 05/30/20 19:03 BP 117/49 L 05/30/20 10:00 Pulse Ox 94 05/30/20 17:13 Body Mass Index 46.9 Unresponsive, at bed side, shallow breathing Objective Data Current Medications Generic Name Dose Route Start Last Admin Trade Name Freq PRN Reason Stop Dose Admin Fentanyl 100 mcg 05/30/20 10:45 05/30/20 10:55 Fentanyl Citrate/Pf 100 Mcg/2 Ml Vial IVPUSH 100 mcg Q5M PRN Administration comfort Fentanyl 1,000 mcg in 100 mls @ 0 mls/hr 05/30/20 10:45 05/31/20 05:00 Sublimaze/Ns IVCONT 100 mcg/hr .Q0M COSME 10 mls/hr Administration Protocol Per Protocol Lorazepam 2 mg 05/30/20 18:11 05/30/20 18:28 Lorazepam 2 Mg/Ml Vial IVPUSH 2 mg Q4H PRN Administration ANXIETY, AGITATION Scopolamine 1.5 mg 05/30/20 18:15 05/30/20 18:30 Scopolamine 1.5 Mg Patch.Td.3 EAR-BEHIND 1.5 mg Q72H COSME Administration Labs CBC & Chem 7: 05/30/20 05:26 05/30/20 05:26 Microbiology Microbiology Results: Microbiology 05/22/20 00:14 Blood - Venous Blood Culture - Final No growth after 5 days. 05/22/20 00:18 Blood - Venous Blood Culture - Final No growth after 5 days. 05/21/20 22:50 Sputum - Suctioned Gram Stain - Final 05/21/20 22:50 Sputum - Suctioned Sputum Culture - Final No growth. 05/21/20 21:00 Sacrum Gram Stain - Final 05/21/20 21:00 Sacrum Routine Culture - Final Pseudomonas aeruginosa Klebsiella pneumoniae 05/22/20 00:27 Urine Catheterized - Fermin Catheter Urine Culture - Final No growth. 05/16/20 12:30 Cerebrospinal Fluid Gram Stain - Final 05/16/20 12:30 Cerebrospinal Fluid CSF Examination - Final 05/16/20 12:30 Cerebrospinal Fluid Fluid Description - Final 05/16/20 12:30 Cerebrospinal Fluid CSF Culture - Final No growth after 3 days. 05/06/20 14:27 Blood - Venous Blood Culture - Final No growth after 5 days. 05/06/20 14:24 Blood - Venous Blood Culture - Final No growth after 5 days. Assessment and Plan (1) Acute respiratory failure with hypercapnia: Status: Acute Assessment and Plan: 74-year-old gentleman, recent 50+ pack-year smoker, with underlying COPD, congestive heart failure, hypothyroidism admitted on 05/06/2020 with confusion, hypothermia, and hypoxemia. He has been admitted to general medical [facility] and treated for aspiration pneumonia, bilateral lower extremity cellulitis, and was being worked up for acute metabolic encephalopathy. Overnight 05/10-05/11/2020 secondary to increasing oxygen requirementshe was placed on 15 L nasal cannula and was saturating 100%. At that time he was noted to be a extremely lethargic. Arterial blood gas obtained late in the morning on 05/11/2020 demonstrated acute respiratory acidosis. Patient had CO2 narcosis and pulmonary aspiration requiring intubation, ventilatory support. He was transferred to intensive care unit, and required vasopressor support, and bedside bronchoscopy for secretion clearance. He has been extubated on 05/12/2020, however required re-intubation the same days secondary to recurrent pulmonary aspiration resulting in hypoxic and hypercapnic respiratory failure. His further hospital course significant for progressive uremia, encephalopathy, and inability to wean of ventilatory support. Family meeting held 05/30. Overall poor prognosis, particularly for neurologic recovery discussed. Family members including and 2 children stated that patient would not have wanted the prolonged interventions that he is receiving in requested change of goals of care to palliation. Code status has been changed to comfort measures only. Patient was terminally extubated and transfer to floor presently on fentanyl drip for comfort. Plan: Comfort measures only with Fentanyl drip. upadated and comforted t bedside
[2020-05-31] MEDS: LORazepam 2 MG/ML VIAL IVPUSH ×3 (11:54→20:21)
--- NOTE | 2020-05-31 12:12 | MHC.CM.PN ---
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 A referral has been sent to [facility] to follow only at this time. The Pt Has [employer] medicare. Requested [facility] determine HOSPICE coverage. CM will follow.
--- NOTE | 2020-05-31 15:29 | PC.NURSE ---
1515 New fentanyl bag up wasted 7.5ml with Tonia NGUYEN .
--- NOTE | 2020-05-31 15:59 | MHC.CM.PN ---
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 T/W met with Russell/son/hcp in Pt room. Emotional support ans encouragement provided. [facility]. The family asked for 1-2 days before discharge planning. They anticipate that the Pt will pass. [facility] following only for now. CM will follow.
[2020-06-01] MEDS: LORazepam 2 MG/ML VIAL IVPUSH ×4 (03:25→19:05)
[2020-06-01] MEDS: fentaNYL citrate/NS 1,000 MCG/100 ML PLAST..BAG 10 MCG IVCONT ×2 (03:29→13:59)
--- NOTE | 2020-06-01 11:54 | MHC.CM.PN ---
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 The hope is that Patient will remain comfortable and [place] [facility]CM will follow for possible need to adjust the dc plan. Comfort tray has been sent to room for family and staff is supportive.
--- NOTE | 2020-06-01 12:27 | P.PNIM_ITS ---
Subjective Subjective Date of Service: 06/01/20 Interval History: comfotable Physical Exam Vital Signs: Vital Signs: Last Vital Signs Temp 96.9 F 05/30/20 17:13 Pulse 96 05/30/20 17:13 Resp 14 05/30/20 19:03 BP 117/49 L 05/30/20 10:00 Pulse Ox 94 05/30/20 17:13 Body Mass Index 46.9 Comfortable, breathing non labored. at bedside Objective Data Current Medications Generic Name Dose Route Start Last Admin Trade Name Alek PRN Reason Stop Dose Admin Fentanyl 100 mcg 05/30/20 10:45 05/30/20 10:55 Fentanyl Citrate/Pf 100 Mcg/2 Ml Vial IVPUSH 100 mcg Q5M PRN Administration comfort Fentanyl 1,000 mcg in 100 mls @ 0 mls/hr 05/31/20 15:15 06/01/20 03:29 Sublimaze/Ns IVCONT 100 mcg/hr .Q0M COSME 10 mls/hr Administration Protocol Per Protocol Lorazepam 2 mg 05/30/20 18:11 06/01/20 08:49 Lorazepam 2 Mg/Ml Vial IVPUSH 2 mg Q4H PRN Administration ANXIETY, AGITATION Scopolamine 1.5 mg 05/30/20 18:15 05/30/20 18:30 Scopolamine 1.5 Mg Patch.Td.3 EAR-BEHIND 1.5 mg Q72H COSME Administration Labs CBC & Chem 7: 05/30/20 05:26 05/30/20 05:26 Microbiology Microbiology Results: Microbiology 05/22/20 00:14 Blood - Venous Blood Culture - Final No growth after 5 days. 05/22/20 00:18 Blood - Venous Blood Culture - Final No growth after 5 days. 05/21/20 22:50 Sputum - Suctioned Gram Stain - Final 05/21/20 22:50 Sputum - Suctioned Sputum Culture - Final No growth. 05/21/20 21:00 Sacrum Gram Stain - Final 05/21/20 21:00 Sacrum Routine Culture - Final Pseudomonas aeruginosa Klebsiella pneumoniae 05/22/20 00:27 Urine Catheterized - Fermin Catheter Urine Culture - Final No growth. 05/16/20 12:30 Cerebrospinal Fluid Gram Stain - Final 05/16/20 12:30 Cerebrospinal Fluid CSF Examination - Final 05/16/20 12:30 Cerebrospinal Fluid Fluid Description - Final 05/16/20 12:30 Cerebrospinal Fluid CSF Culture - Final No growth after 3 days. 05/06/20 14:27 Blood - Venous Blood Culture - Final No growth after 5 days. 05/06/20 14:24 Blood - Venous Blood Culture - Final No growth after 5 days. Assessment and Plan (1) Acute respiratory failure with hypercapnia: Status: Acute Assessment and Plan: 74-year-old gentleman, recent 50+ pack-year smoker, with underlying COPD, congestive heart failure, hypothyroidism admitted on 05/06/2020 with confusion, hypothermia, and hypoxemia. He has been admitted to [facility] medical [facility] and treated for aspiration pneumonia, bilateral lower extremity cellulitis, and was being worked up for acute metabolic encephalopathy. Overnight 05/10-05/11/2020 secondary to increasing oxygen requirementshe was placed on 15 L nasal cannula and was saturating 100%. At that time he was noted to be a extremely lethargic. Arterial blood gas obtained late in the morning on 05/11/2020 demonstrated acute respiratory acidosis. Patient had CO2 narcosis and pulmonary aspiration requiri ng intubation, ventilatory support. He was transferred to intensive care unit, and required vasopressor support, and bedside bronchoscopy for secretion clearance. He has been extubated on 05/12/2020, however required re-intubation the same days secondary to recurrent pulmonary aspiration resulting in hypoxic and hypercapnic respiratory failure. His further hospital course significant for progressive uremia, encephalopathy, and inability to wean of ventilatory support. Family meeting held 05/30. Overall poor prognosis, particularly for neurologic recovery discussed. Family members including and 2 children stated that patient would not have wanted the prolonged interventions that he is receiving in requested change of goals of care to palliation. Code status has been changed to comfort measures only. Patient was terminally extubated and transfer to floor presently on fentanyl drip for comfort. Plan: Comfort measures only with Fentanyl drip. upadated and comforted t bedsid. Ativan PRN for anxiety. I don't think he qualifies for [facility] but will discuss with hospice.
--- NOTE | 2020-06-01 13:37 | MHC.CLN ---
F/U PT IS NOW [facility] WILL FOLLOW WITH CARE TEAM AND PROVIDE SUPPORT NEEDED
[2020-06-02] MEDS: fentaNYL citrate/NS 1,000 MCG/100 ML PLAST..BAG 10 MCG IVCONT ×3 (00:26→20:33)
[2020-06-02] MEDS: LORazepam 2 MG/ML VIAL IVPUSH ×3 (05:22→19:23)
--- NOTE | 2020-06-02 10:38 | HO.PM.IMPN ---
Subjective Subjective Date of Service: 06/02/20 Interval History: comfort care, remains unresponsive Review of Systems Review of Systems: Yes all other systems are reviewed and are negative Physical Exam Vital Signs: Vital Signs: Last Vital Signs Temp 96.9 F 05/30/20 17:13 Pulse 96 05/30/20 17:13 Resp 14 05/30/20 19:03 BP 117/49 L 05/30/20 10:00 Pulse Ox 94 05/30/20 17:13 Body Mass Index 46.9 Unresponsive, shallow breaths Objective Data Current Medications Generic Name Dose Route Start Last Admin Trade Name Freq PRN Reason Stop Dose Admin Fentanyl 100 mcg 05/30/20 10:45 05/30/20 10:55 Fentanyl Citrate/Pf 100 Mcg/2 Ml Vial IVPUSH 100 mcg Q5M PRN Administration comfort Fentanyl 1,000 mcg in 100 mls @ 0 mls/hr 05/31/20 15:15 06/02/20 09:13 Sublimaze/Ns IVCONT 100 mcg/hr .Q0M COSME 10 mls/hr Administration Protocol Per Protocol Lorazepam 2 mg 05/30/20 18:11 06/02/20 05:22 Lorazepam 2 Mg/Ml Vial IVPUSH 2 mg Q4H PRN Administration ANXIETY, AGITATION Scopolamine 1.5 mg 05/30/20 18:15 05/30/20 18:30 Scopolamine 1.5 Mg Patch.Td.3 EAR-BEHIND 1.5 mg Q72H COSME Administration Labs CBC & Chem 7: 05/30/20 05:26 05/30/20 05:26 Microbiology Microbiology Results: Microbiology 05/22/20 00:14 Blood - Venous Blood Culture - Final No growth after 5 days. 05/22/20 00:18 Blood - Venous Blood Culture - Final No growth after 5 days. 05/21/20 22:50 Sputum - Suctioned Gram Stain - Final 05/21/20 22:50 Sputum - Suctioned Sputum Culture - Final No growth. 05/21/20 21:00 Sacrum Gram Stain - Final 05/21/20 21:00 Sacrum Routine Culture - Final Pseudomonas aeruginosa Klebsiella pneumoniae 05/22/20 00:27 Urine Catheterized - Fermin Catheter Urine Culture - Final No growth. 05/16/20 12:30 Cerebrospinal Fluid Gram Stain - Final 05/16/20 12:30 Cerebrospinal Fluid CSF Examination - Final 05/16/20 12:30 Cerebrospinal Fluid Fluid Description - Final 05/16/20 12:30 Cerebrospinal Fluid CSF Culture - Final No growth after 3 days. 05/06/20 14:27 Blood - Venous Blood Culture - Final No growth after 5 days. 05/06/20 14:24 Blood - Venous Blood Culture - Final No growth after 5 days. Assessment and Plan (1) Acute respiratory failure with hypercapnia: Status: Acute Assessment and Plan: 74-year-old gentleman, recent 50+ pack-year smoker, with underlying COPD, congestive heart failure, hypothyroidism admitted on 05/06/2020 with confusion, hypothermia, and hypoxemia. He has been admitted to [facility] medical [facility] and treated for aspiration pneumonia, bilateral lower extremity cellulitis, and was being worked up for acute metabolic encephalopathy. Overnight 05/10-05/11/2020 secondary to increasing oxygen requirementshe was placed on 15 L nasal cannula and was saturating 100%. At that time he was noted to be a extremely lethargic. Arterial blood gas obtained late in the morning on 05/11/2020 demonstrated acute respiratory acidosis. Patient had CO2 narcosis and pulmonary aspiration requiring intubation, ventilatory support. He was transferred to intensive care unit, and required vasopressor support, and bedside bronchoscopy for secretion clearance. He has been extubated on 05/12/2020, however required re-intubation the same days secondary to recurrent pulmonary aspiration resulting in hypoxic and hypercapnic respiratory failure. His further hospital course significant for progressive uremia, encephalopathy, and inability to wean of ventilatory support. Family meeting held 05/30. Overall poor prognosis, particularly for neurologic recovery discussed. Family members including and 2 children stated that patient would not have wanted the prolonged interventions that he is receiving in requested change of goals of care to palliation. Code status has been changed to comfort measures only. Patient was terminally extubated and transfer to floor presently on fentanyl drip for comfort. Plan: Comfort measures only with Fentanyl drip, Ativan PRN. , daughter upadated and comforted t bedsid. Ativan PRN for anxiety. Does not qualify for [facility] hospice
[2020-06-02] MEDS: Scopolamine 1.5 MG PATCH.TD.3 EAR-BEHIND (20:16)
[2020-06-03] MEDS: LORazepam 2 MG/ML VIAL IVPUSH ×3 (01:23→14:43)
[2020-06-03] MEDS: fentaNYL citrate/NS 1,000 MCG/100 ML PLAST..BAG 10 MCG IVCONT ×2 (07:22→17:23)
--- NOTE | 2020-06-03 10:54 | P.PNIM_ITS ---
Subjective Subjective Date of Service: 06/03/20 Interval History: comfort care, remains unresponsive, breathing more shallow today, and grandson at bedside, Shon normant going on Physical Exam Vital Signs: Vital Signs: Last Vital Signs Temp 96.9 F 05/30/20 17:13 Pulse 96 05/30/20 17:13 Resp 14 05/30/20 19:03 BP 117/49 L 05/30/20 10:00 Pulse Ox 94 05/30/20 17:13 Body Mass Index 46.9 .Unresponsive, comfortable, shallow breathing Objective Data Current Medications Generic Name Dose Route Start Last Admin Trade Name Freq PRN Reason Stop Dose Admin Fentanyl 100 mcg 05/30/20 10:45 05/30/20 10:55 Fentanyl Citrate/Pf 100 Mcg/2 Ml Vial IVPUSH 100 mcg Q5M PRN Administration comfort Fentanyl 1,000 mcg in 100 mls @ 0 mls/hr 05/31/20 15:15 06/03/20 07:22 Sublimaze/Ns IVCONT 100 mcg/hr .Q0M COSME 10 mls/hr Administration Protocol Per Protocol Lorazepam 2 mg 05/30/20 18:11 06/03/20 06:13 Lorazepam 2 Mg/Ml Vial IVPUSH 2 mg Q4H PRN Administration ANXIETY, AGITATION Scopolamine 1.5 mg 05/30/20 18:15 06/02/20 20:16 Scopolamine 1.5 Mg Patch.Td.3 EAR-BEHIND 1.5 mg Q72H COSME Administration Labs CBC & Chem 7: 05/30/20 05:26 05/30/20 05:26 Microbiology Microbiology Results: Microbiology 05/22/20 00:14 Blood - Venous Blood Culture - Final No growth after 5 days. 05/22/20 00:18 Blood - Venous Blood Culture - Final No growth after 5 days. 05/21/20 22:50 Sputum - Suctioned Gram Stain - Final 05/21/20 22:50 Sputum - Suctioned Sputum Culture - Final No growth. 05/21/20 21:00 Sacrum Gram Stain - Final 05/21/20 21:00 Sacrum Routine Culture - Final Pseudomonas aeruginosa Klebsiella pneumoniae 05/22/20 00:27 Urine Catheterized - Fermin Catheter Urine Culture - Final No growth. 05/16/20 12:30 Cerebrospinal Fluid Gram Stain - Final 05/16/20 12:30 Cerebrospinal Fluid CSF Examination - Final 05/16/20 12:30 Cerebrospinal Fluid Fluid Description - Final 05/16/20 12:30 Cerebrospinal Fluid CSF Culture - Final No growth after 3 days. 05/06/20 14:27 Blood - Venous Blood Culture - Final No growth after 5 days. 05/06/20 14:24 Blood - Venous Blood Culture - Final No growth after 5 days. Assessment and Plan (1) Acute respiratory failure with hypercapnia: Status: Acute Assessment and Plan: 74-year-old gentleman, recent 50+ pack-year smoker, with underlying COPD, congestive heart failure, hypothyroidism admitted on 05/06/2020 with confusion, hypothermia, and hypoxemia. He has been admitted to general medical [facility] and treated for aspiration pneumonia, bilateral lower extremity cellulitis, and was being worked up for acute metabolic encephalopathy. Overnight 05/10-05/11/2020 secondary to increasing oxygen requirementshe was placed on 15 L nasal cannula and was saturating 100%. At that time he was noted to be a extremely lethargic. Arterial blood gas obtained late in the morning on 05/11/2020 demonstrated acute respiratory acidosis. Patient had CO2 narcosis and pulmonary aspiration requ iring intubation, ventilatory support. He was transferred to intensive care unit, and required vasopressor support, and bedside bronchoscopy for secretion clearance. He has been extubated on 05/12/2020, however required re-intubation the same days secondary to recurrent pulmonary aspiration resulting in hypoxic and hypercapnic respiratory failure. His further hospital course significant for progressive uremia, encephalopathy, and inability to wean of ventilatory support. Family meeting held 05/30. Overall poor prognosis, particularly for neurologic recovery discussed. Family members including and 2 children stated that patient would not have wanted the prolonged interventions that he is receiving in requested change of goals of care to palliation. Code status has been changed to comfort measures only. Patient was terminally extubated and transfer to floor presently on fentanyl drip for comfort. Plan: Comfort measures only with Fentanyl drip, Ativan PRN adjust meds as neede d for maximum comforty. , grandson at bedside.
[2020-06-03 17:52] LABS: Nicotinamide <20 ng/mL; Vit B3 - Nicotinic Acid <20 ng/mL
[2020-06-04] MEDS: LORazepam 2 MG/ML VIAL IVPUSH ×2 (00:09→06:27)
[2020-06-04] MEDS: fentaNYL citrate/NS 1,000 MCG/100 ML PLAST..BAG 10 MCG IVCONT ×2 (03:36→14:02)
[2020-06-04 08:02] VITALS: RESP 20
--- NOTE | 2020-06-04 09:22 | HO.PM.IMPN ---
Subjective Subjective Date of Service: 06/04/20 Interval History: comfort care, remains unresponsive, breathing more shallow today, and grandson at bedside, Shon normant going on Physical Exam Vital Signs: Vital Signs: Last Vital Signs Temp 96.9 F 05/30/20 17:13 Pulse 96 05/30/20 17:13 Resp 20 06/04/20 08:02 BP 117/49 L 05/30/20 10:00 Pulse Ox 94 05/30/20 17:13 Body Mass Index 46.9 Const: Other: Comfortable, shallow respirator Objective Data Current Medications Generic Name Dose Route Start Last Admin Trade Name Freq PRN Reason Stop Dose Admin Fentanyl 100 mcg 05/30/20 10:45 05/30/20 10:55 Fentanyl Citrate/Pf 100 Mcg/2 Ml Vial IVPUSH 100 mcg Q5M PRN Administration comfort Fentanyl 1,000 mcg in 100 mls @ 0 mls/hr 05/31/20 15:15 06/04/20 03:36 Sublimaze/Ns IVCONT 100 mcg/hr .Q0M COSME 10 mls/hr Administration Protocol Per Protocol Lorazepam 2 mg 05/30/20 18:11 06/04/20 06:27 Lorazepam 2 Mg/Ml Vial IVPUSH 2 mg Q4H PRN Administration ANXIETY, AGITATION Scopolamine 1.5 mg 05/30/20 18:15 06/02/20 20:16 Scopolamine 1.5 Mg Patch.Td.3 EAR-BEHIND 1.5 mg Q72H COSME Administration Labs CBC & Chem 7: 05/30/20 05:26 05/30/20 05:26 Microbiology Microbiology Results: Microbiology 05/22/20 00:14 Blood - Venous Blood Culture - Final No growth after 5 days. 05/22/20 00:18 Blood - Venous Blood Culture - Final No growth after 5 days. 05/21/20 22:50 Sputum - Suctioned Gram Stain - Final 05/21/20 22:50 Sputum - Suctioned Sputum Culture - Final No growth. 05/21/20 21:00 Sacrum Gram Stain - Final 05/21/20 21:00 Sacrum Routine Culture - Final Pseudomonas aeruginosa Klebsiella pneumoniae 05/22/20 00:27 Urine Catheterized - Fermin Catheter Urine Culture - Final No growth. 05/16/20 12:30 Cerebrospinal Fluid Gram Stain - Final 05/16/20 12:30 Cerebrospinal Fluid CSF Examination - Final 05/16/20 12:30 Cerebrospinal Fluid Fluid Description - Final 05/16/20 12:30 Cerebrospinal Fluid CSF Culture - Final No growth after 3 days. 05/06/20 14:27 Blood - Venous Blood Culture - Final No growth after 5 days. 05/06/20 14:24 Blood - Venous Blood Culture - Final No growth after 5 days. Assessment and Plan (1) Acute respiratory failure with hypercapnia: Status: Acute Assessment and Plan: 74-year-old gentleman, recent 50+ pack-year smoker, with underlying COPD, congestive heart failure, hypothyroidism admitted on 05/06/2020 with confusion, hypothermia, and hypoxemia. He has been admitted to general medical [facility] and treated for aspiration pneumonia, bilateral lower extremity cellulitis, and was being worked up for acute metabolic encephalopathy. Overnight 05/10-05/11/2020 secondary to increasing oxygen requirementshe was placed on 15 L nasal cannula and was saturating 100%. At that time he was noted to be a extremely lethargic. Arterial blood gas obtained late in the morning on 05/11/2020 demonstrated acute respiratory acidosis. Patient had CO2 narcosis and pulmonary aspiration requiring intubation, ventilatory support. He was transferred to intensive care unit, and required vasopressor support, and bedside bronchoscopy for secretion clearance. He has been extubated on 05/12/2020, however required re-intubation the same days secondary to recurrent pulmonary aspiration resulting in hypoxic and hypercapnic respiratory failure. His further hospital course significant for progressive uremia, encephalopathy, and inability to wean of ventilatory support. Family meeting held 05/30. Overall poor prognosis, particularly for neurologic recovery discussed. Family members including and 2 children stated that patient would not have wanted the prolonged interventions that he is receiving in requested change of goals of care to palliation. Code status has been changed to comfort measures only. Patient was terminally extubated and transfer to floor presently on fentanyl drip for comfort. Plan: ocntinue Comfort measures only with Fentanyl drip, Ativan PRN adjust meds as needed for maximum comfort.
--- NOTE | 2020-06-04 12:26 | MHC.CM.PN ---
CM met with patient's , str and son at the bedside to discuss patient's discharge plan. Family is agreeable to have a Hospice Informational visit with NA. CM messaged Hospice who has contacted family and made an appt for today. CM did instruct if patient were to go to [facility] on Hospice they would have to pay for room and board. Patient will need BLS transport. CM will continue to follow for discharge needs.
--- NOTE | 2020-06-04 14:18 | PC.NURSE ---
Patient has been resting comfortably in bed since my arrival at 7am. Fentanyl gtt infusing at 10ml/hr. RR 10-14. No apparent distress. Famil at bedside all day. Given emotional support. Family requested that I do not turn him when I suggested at 10/12p due to him looking so restful . Will continue to monitor and offer q1-2 hours. Hospice nurse at bedside at this time.
[2020-06-05] MEDS: fentaNYL citrate/NS 1,000 MCG/100 ML PLAST..BAG 10 MCG IVCONT (01:16)
--- NOTE | 2020-06-05 02:54 | PC.NURSE ---
Pt fentanyl was readministered and witness by nursing bookkeeping clerks supervisor
--- NOTE | 2020-06-05 07:35 | PM.DS ---
DS: Providers Provider Date of Service: 07/02/20 Date of admission: 05/06/20 16:58 Discharge date: 06/06/20 Primary care physician: Unknown Physician DS: Diagnosis Discharge Diagnosis (1) Acute respiratory failure with hypercapnia: Status: Acute DS: Medications Discharge Medications Home Medications: Home Medications Medication Instructions Recorded Confirmed furosemide 1 tab PO TID 05/06/20 05/06/20 levothyroxine 1 tab PO DAILY 05/06/20 05/06/20 metoprolol tartrate 1 tab PO DAILY 05/06/20 05/06/20 spironolactone 1 tab PO BID 05/06/20 05/06/20 tamsulosin 1 cap PO DAILY 05/06/20 05/06/20 Previous Rx's Medication Instructions Recorded lorazepam [Ativan] 0.5 mg PO Q6H PRN #14 tab 06/05/20 morphine concentrate 10 mg SUBLINGUAL Q2-3H #30 ml 06/05/20 DS: Summary Hospital Course Hospital Course: 74-year-old gentleman, recent 50+ pack-year smoker, with underlying COPD, congestive heart failure, hypothyroidism admitted on 05/06/2020 with confusion, hypothermia, and hypoxemia. He has been admitted to general medical [facility]opes and treated for aspiration pneumonia, bilateral lower extremity cellulitis, and was being worked up for acute metabolic encephalopathy. Overnight 05/10-05/11/2020 secondary to increasing oxygen requirementshe was placed on 15 L nasal cannula and was saturating 100%. At that time he was noted to be a extremely lethargic. Arterial blood gas obtained late in the morning on 05/11/2020 demonstrated acute respiratory acidosis. Patient had CO2 narcosis and pulmonary aspiration requiring intubation, ventilatory support. He was transferred to intensive care unit, and required vasopressor support, and bedside bronchoscopy for secretion clearance. He has been extubated on 05/12/2020, however required re-intubation the same days secondary to recurrent pulmonary aspiration resulting in hypoxic and hypercapnic respiratory failure. His further hospital course significant for progressive uremia, encephalopathy, and inability to wean of ventilatory support. Family meeting held on 05/30/20 and given overall poor prognosis, particularly for neurologic recovery discussed. Family members including and 2 children stated that patient would not have wanted the prolonged interventions that he is receiving in requested change of goals of care to palliation. Code status was changed to comfort measures only by Dr. Warren in ICU. Patient was terminally extubated, put on Fentanyl drip for comfort. Family has opted to take patient home for the rest of care with hospcie. Time Spent with Patient Time attestation: Total time spent providing and/or coordinating discharge services: Discharge coordination time: Greater than 30 minutes Physical Exam Vital Signs: Vital Signs: Last Vital Signs Temp 96.9 F 05/30/20 17:13 Pulse 96 05/30/20 17:13 Resp 20 06/04/20 08:02 BP 117/49 L 05/30/20 10:00 Pulse Ox 94 05/30/20 17:13 Body Mass Index 46.9 Patient is unresponsive, shallow breathing, otherwise comfortable Discharge Plan Discharge Anticipated Discharge Date/Time: 06/06/20 10:42 Patient Disposition: Home Health Service Discharge Diagnosis: comfort Referrals: [facility] [Outside] Mando Chaudhry MD [Physician] - Discharge Medications: New morphine concentrate 100 mg/5 mL (20 mg/mL) solution 10 mg sublingual Q2-3H Qty: 30 RF: 0 scopolamine base [Transderm-Scop] 1 mg over 3 days patch 3 day 1 patch transdermal Q3D PRN (Reason: secretions) Qty: 4 RF: 0 lorazepam [Ativan] 0.5 mg tablet 0.5 mg PO Q6H PRN (Reason: anxiety) Qty: 14 RF: 0 Discontinued furosemide 40 mg tablet 1 tab PO TID RF: 0 spironolactone 25 mg tablet 1 tab PO BID RF: 0 tamsulosin 0.4 mg capsule 1 cap PO DAILY RF: 0 levothyroxine 125 mcg tablet 1 tab PO DAILY RF: 0 metoprolol tartrate 25 mg tablet 1 tab PO DAILY RF: 0 Discharge Orders: Discharge Order (Routine); Ordered 06/05/20 Ordered By: Chintan Love Diet: other Activity on Discharge: Rest with bed elevated Stand Alone Forms: Patient Portal Discharge page Care Plan Goals: Comfort measures only Health Concerns: Confirm measures only Plan of Treatment: Common for measures only Assessment: comfort care Discharge Date/Time: 06/06/20 12:25
[2020-06-05] MEDS: Morphine Sulfate 2 MG/ML CARTRIDGE IVPUSH ×2 (11:18→23:21)
--- NOTE | 2020-06-05 14:13 | MHC.CM.PN ---
[facility] is not able to deliver hospital bed until 6pm tonight. Also Hospice is requiring patient be placed on SL MS and to d/c IV MS. Discharge is placed on hold until tomorrow. MD and family are all aware.
--- NOTE | 2020-06-05 15:17 | MHC.CM.PN ---
Patient will be discharged home tomorrow 06/06/20 at 9am via BLS transport. Services from [facility]. Nurse and are aware,
[2020-06-05] MEDS: Scopolamine 1.5 MG PATCH.TD.3 EAR-BEHIND (17:18)
--- NOTE | 2020-06-05 21:01 | P.EN_ITS ---
Event Note Date of Service: 06/05/20 Event Note: pt's son concerned about taking father home on pill form of pain c ontrol. he is afraid that pain meds in form of pill may not work, or his father may not be able to ingest, therefore would like to confirm with hospice as well as primary day physician before taking pt home
[2020-06-06] MEDS: Morphine Sulfate 2 MG/ML CARTRIDGE IVPUSH (06:24)
[2020-06-06] MEDS: Morphine Sulfate Oral Sol 10 MG/5 ML SOLUTION SUBLINGUAL ×2 (08:16→10:25)
--- NOTE | 2020-06-06 08:18 | MHC.CM.PN ---
Patient's IV MS not transitioned to SL until today at 7:30 am, patient is just now receiving first dose. Message left with Pat at Hospice as to how long will patient need to be SL before discharging home. 9am transport placed on hold/will call. Son Russell made aware of hold on discharge.
--- NOTE | 2020-06-06 09:50 | MHC.CM.PN ---
Patient will be discharged home today at 11:15 am via BLS transport. Nurse, family are aware.Patient will be going home with Hospice from [facility].
== END 2020-06-06 12:25 | disposition home health service (06) | DRG 166 ==
LOC: HO.ED 15:35 → HO.EDOVER 17:11 → HO.IMC 17:14 → HO.ICU 05-11 09:41 → HO.IMC 05-30 15:12
PROVIDERS: Anesthesiology; Hospitalist; Internal Medicine; Internal Medicine Cardiovascular Disease; Internal Medicine Medical Oncology; Internal Medicine Nephrology; Internal Medicine Pulmonary Disease; Nurse Practitioner Acute Care; Physician Assistant; Physician Assistant Medical; Registered Nurse Community Health; Student in an Organized Health Care Education/Training Program; Admitting Provider Family Medicine; Emergency Provider Emergency Medicine; PCP Family Medicine; Visit Provider Internal Medicine
DX: J69.0 Pneumonitis due to inhalation of food and vomit (principal); G93.41 Metabolic encephalopathy; J96.01 Acute respiratory failure with hypoxia; J96.02 Acute respiratory failure with hypercapnia; N17.0 Acute kidney failure with tubular necrosis; A41.9 Sepsis, unspecified organism; I50.33 Acute on chronic diastolic (congestive) heart failure; J98.11 Atelectasis; L03.116 Cellulitis of left lower limb; E87.0 Hyperosmolality and hypernatremia; I13.0 Hypertensive heart and chronic kidney disease with heart failure and stage 1 through stage 4 chronic kidney disease, or unspecified chronic kidney disease; Z68.42 Body mass index [BMI] 45.0-49.9, adult; L03.115 Cellulitis of right lower limb; G95.9 Disease of spinal cord, unspecified; E87.3 Alkalosis; G61.0 Guillain-Barre syndrome; N18.32 Chronic kidney disease, stage 3b; E86.0 Dehydration; R68.0 Hypothermia, not associated with low environmental temperature; L89.156 Pressure-induced deep tissue damage of sacral region; E11.22 Type 2 diabetes mellitus with diabetic chronic kidney disease; D69.6 Thrombocytopenia, unspecified; E03.9 Hypothyroidism, unspecified; G47.30 Sleep apnea, unspecified; I50.810 Right heart failure, unspecified; E66.9 Obesity, unspecified; D63.1 Anemia in chronic kidney disease; B96.5 Pseudomonas (aeruginosa) (mallei) (pseudomallei) as the cause of diseases classified elsewhere; B96.1 Klebsiella pneumoniae [K. pneumoniae] as the cause of diseases classified elsewhere; I87.323 Chronic venous hypertension (idiopathic) with inflammation of bilateral lower extremity; J44.9 Chronic obstructive pulmonary disease, unspecified; Z20.822 Contact with and (suspected) exposure to COVID-19; Z79.890 Hormone replacement therapy; Z79.899 Other long term (current) drug therapy; Z66 Do not resuscitate; Z51.5 Encounter for palliative care
CPT/HCPCS: 36415; 36600; 62328; 70450; 70551; 70552; 70553; 71045; 72141; 78606; 80048; 80051; 80053; 80076; 81001; 81003; 81240; 81241; 82040; 82140; 82247; 82272; 82595; 82784; 82945; 82947; 83010; 83036; 83090; 83605; 83615; 83735; 83880; 84100; 84145; 84157; 84300; 84439; 84443; 84484; 84591; 85007; 85025; 85027; 85045; 85060; 85301; 85302; 85303; 85305; 85306; 85379; 85384; 85597; 85610; 85613; 85652; 85730; 86021; 86038; 86039; 86140; 86147; 86160; 86334; 86431; 86592; 86780; 86880; 87015; 87040; 87070; 87071; 87077; 87086; 87186; 87205; 87635; 87640; 87641; 89051; 92610; 93005; 93306; 94002; 94003; 94640; 94799; 95816; 96365; 96366; 96368; 99285; A9557; A9585; J0295; J1100; J1170; J1200; J1205; J1572; J1650; J1940; J1956; J2060; J2185; J2250; J2270; J2370; J2543; J2920; J2930; J3010; J3370; P9047